=== PATIENT | female | born 1980 | race Caucasian/White ===

== ENCOUNTER 2023-05-23 07:35 | Outpatient (OUT) | payer BC, SELFPAY ==
[2023-05-23 07:52] LABS: Basophils Percent Auto 0.6 % (0.2-2.0); Eosinophils Absolute Auto 0.3 10^3/uL (0.0-0.7); Eosinophils Percent Auto 3.7 % (0.9-7.0); Hematocrit 39.6 % (36.0-48.0); Hemoglobin 12.9 g/dL (12.0-16.0); Immature Granulocytes Abs Auto 0.02 10^3/uL (0.00-0.03); Immature Granulocytes Pct Auto 0.3 % (0.0-0.5); Lymphocytes Percent Auto 29.7 % (20.5-60.0); Mean Corpuscular HGB Conc 32.6 g/dL (29.9-35.2); Mean Corpuscular Hemoglobin 26.5 pg (26.7-34.0); Mean Corpuscular Volume 81.5 fL (81.0-99.0); Mean Platelet Volume 9.2 fL (9.5-13.5); Monocytes Absolute Auto 0.4 10^3/uL (0.3-0.8); Monocytes Percent Auto 6.3 % (1.7-12.0); Neutrophils Absolute Auto 4.1 10^3/uL (1.4-6.5); Neutrophils Percent Auto 59.4 % (43.0-75.0); Platelet Count 208 10^3/uL (150-450); Red Blood Count 4.86 10^6/uL (4.20-5.40); Red Cell Distribution Width 13.2 % (11.0-15.0); White Blood Count 6.8 10^3/uL (4.0-11.0)
[2023-05-23 08:34] LABS: Alanine Aminotransferase 21 U/L (14-59); Albumin Globulin Ratio 0.9; Albumin Level 3.4 g/dL (3.4-5.0); Alkaline Phosphatase 66 U/L (46-116); Anion Gap 11.3; Aspartate Amino Transferase 17 U/L (15-37); BUN Creatinine Ratio 15.7; Bilirubin Total 0.4 mg/dL (0.2-1.0); Calcium 8.2 mg/dL (8.5-10.1); Carbon Dioxide 27.8 mmol/L (21.0-32.0); Chloride 103 mmol/L (98-107); Chol HDL Ratio 2.8; Cholesterol 192 mg/dL (<=200); Estimated GFR (African America >60 (>=60); Estimated GFR (Non-African Ame >60 (>=60); Globulin 3.6 g/dL; Glucose 112 mg/dL (74-106); HDL Cholesterol 68 mg/dL (40-60); Potassium 4.1 mmol/L (3.5-5.1); Sodium 138 mmol/L (136-145); Thyroid Stimulating Hormone 0.867 uIU/mL (0.358-3.740); Triglycerides 95 mg/dL (<=150)
[2023-05-23 08:43] LABS: Estimated Average Glucose 105 mg/dL; Glycohemoglobin A1C 5.3 % (4.5-6.2)
== END 2023-05-23 07:36 | disposition home or self-care (01) ==
PROVIDERS: PCP Family Medicine; Visit Provider Family Medicine
DX: Z00.00 Encounter for general adult medical examination without abnormal findings (principal)
CPT/HCPCS: 36415; 80053; 80061; 83036; 84443; 85025

== ENCOUNTER 2023-07-08 07:26 | Outpatient (OUT) | payer BC, SELFPAY ==
--- NOTE | 2023-07-08 07:50 | MM_ITS ---
Patient: JEIMY BOWLES Exam Date: 07/08/2023 : 1980 Gender:F Ordering : DR Jerod Paiz . Admission #: [id number] Family : Order #: [id number] CLICK HERE TO VIEW EXAM RADIOLOGY REPORT PROCEDURE: MM TOMOSYNTHESIS SCREENING BI COMPARISON: MG MAMM SCREEN LAUREANO W CAD, 06/21/2017. MG MAMM LT DIAG FU, 09/22/2017. INDICATIONS: Screening Calculator Name NCI Breast Cancer Risk Assessment Tool 5 Year Breast Cancer Risk 1.00% Lifetime Breast Cancer Risk 13.20% Personal Breast Cancer No Personal Ovarian Cancer No Treatments None Family Cancers Grandmother-paternal with colon cancer at age ~40; Grandfather-maternal with lung/brain cancer at age 75. LOCATION: [facility] BREAST COMPOSITION: Scattered areas fibroglandular density. FINDINGS: DIAGNOSTIC CATEGORY 1--NEGATIVE. NO CHANGE FROM COMPARISON ASSESSMENT. RIGHT BREAST: No significant suspicious finding. LEFT BREAST: No significant suspicious finding. RECOMMENDATIONS: ROUTINE MAMMOGRAM AND CLINICAL EVALUATION IN 12 MONTHS. PLEASE NOTE: A NORMAL MAMMOGRAM DOES NOT EXCLUDE THE POSSIBILITY OF BREAST CANCER. A CLINICALLY SUSPICIOUS PALPABLE LUMP SHOULD BE BIOPSIED. Dictated by: Duncan Brizuela MD on 07/08/2023 at 08:32 Approved by: Duncan Brizuela MD on 07/08/2023 at 08:33
== END 2023-07-08 07:27 | disposition home or self-care (01) ==
LOC: MAMMO 07:26
PROVIDERS: PCP Family Medicine; Visit Provider Family Medicine
DX: Z12.31 Encounter for screening mammogram for malignant neoplasm of breast (principal); Z80.0 Family history of malignant neoplasm of digestive organs; Z80.41 Family history of malignant neoplasm of ovary; Z80.1 Family history of malignant neoplasm of trachea, bronchus and lung
CPT/HCPCS: 77063; 77067

== ENCOUNTER 2023-12-14 11:07 | Outpatient (OUT) | payer BC, SELFPAY ==
--- NOTE | 2023-12-14 11:35 | PM.CN ---
Consult Note: HPI Data of Consult Patient: new to practice Requesting Physician: Dayna Bustamante NP Primary Care Provider: Jerod Paiz MD Consult Narrative Reason for consult: re-establish care Narrative: Binta Graves a pleasant 43 year old female presents for evaluation and management of chronic low back pain post left lumbar hemilaminectomy and discectomy in March 2020, please note patient has a 6th lumbar vertebra. Patient has a hx of chronic low back pain that responds well to bilateral L4-5 L5-L6 RFAs, last december of 2022 which provided greater than 50% improvement greater than 6 months. Patient has a hx of chronic left lower extremity numbness tingling and weakness after surgery, these symptoms have been worsening over the last 3 months with increase in left foot pain as well as increasing thigh pain and numbness tingling. Denies loss of bowel or bladder. patient has completed greater than 6 weeks of HEP without benefit. Last MRI imaging post surgery in 05/2020 with severe canal stenosis of L6-S1, last lumbar xray 11/25 consistent with degenerative changes. Pain today 12/10 in low back and left leg, with numbness and weakness, pain increased to moderate to severe with sitting standing walking bending and stairs, mild improvement with leaning forward and rest. In the past experienced side effects from opioids and gabapentin, extreme drowsiness. Mild relief from motrin/ibuprofen without side effects. cc:: CC: Dayna Bustamante NP Review of Systems ROS Status of ROS 10 or more systems reviewed and unremarkable except as noted in history and below Musculoskeletal Reports: [facility] Medical History (Updated 12/14/23 @ 11:59 by Dayna Bustamante NP) Lumbar spondylosis ?M47.816 - Spondylosis without myelopathy or radiculopathy, lumbar region (ICD-10) Exam Constitutional Documenting provider has reviewed patient's vital signs: yes Common normals: no apparent distress, oriented x3, healthy appearing, alert and well nourished General appearance: cooperative HENMT Common normals: normocephalic, hearing grossly normal bilaterally and moist oral mucous membranes Head and scalp: normocephalic Eye Common normals: PERRL Pupil: PERRL Neck & C-Spine Common normals: full ROM General: normal visual inspection Chest Common normals: inspection of chest normal Respiratory Common normals: normal respiratory effort, no retractions and no use of accessory muscles Back & Pelvis Lumbar spine/lower back: ROM limited, pain with ROM and straight leg raise positive left Sacroiliac joints: SI joint(s) abnormal (mild pain with left fabir/fadir/thigh thrust) Other: decreased sensation to left L5/S1 dermatomal pattern strength 4/5 in LLE 5/5 in RLE Extremity Common normals: normal to inspection and full ROM Neuro Common normals: oriented x3, CN's II-XII intact bilaterally, moves all extremities, no focal motor deficits, no sensory deficits noted and deep tendon reflexes 2+ bilaterally Sensorium/orientation: alert Gait (neuro): antalgic Motor exam: no movement abnormalities noted and strength abnormal Psych Common normals: mental status grossly normal, thought process normal, cooperative, affect normal, speech normal and activity/motor behavior normal Speech: normal speech Thought process: normal thought process Assessment and Plan Assessment and Plan (1) Lumbar neuritis: (2) Lumbar radiculopathy: (3) Lumbar stenosis with neurogenic claudication: (4) Lumbar post-laminectomy syndrome: (5) Lumbar spondylosis: (6) HTN (hypertension): Assessment and Plan: Blood pressure is elevated today. No signs or symptoms of RI/CVA including chest pain, SOB, left sided acute neck, arm, or jaw pain (separate from chronic pain complaint), diaphoresis, facial drooping, new acute neuro changes in both upper and lower extremities (other than those mentioned in the note above). Recommend follow up with PCP for further evaluation and treatment.? Plan update lumbar MRI without contrast with 10mg PO Valium prior to procedure, lumbar post lami syndrome, lx neuritis, lx radiculopathy, lx stenosis with NC, L6 Vertebra, chronic pain unresponsive to HEP and medicatiions. Essential to evaluate for injection therapy vs NS referral start zonegran 50mg HS continue to monitor BP, f/u with PCP continue HEP as tolerated f/u after MRI
== END 2023-12-14 11:08 | disposition home or self-care (01) ==
PROVIDERS: PCP Family Medicine; Visit Provider Nurse Practitioner
DX: M47.816 Spondylosis without myelopathy or radiculopathy, lumbar region (principal); M54.16 Radiculopathy, lumbar region; M48.062 Spinal stenosis, lumbar region with neurogenic claudication; M96.1 Postlaminectomy syndrome, not elsewhere classified; I10 Essential (primary) hypertension
CPT/HCPCS: G0463

== ENCOUNTER 2023-12-20 13:32 | Outpatient (OUT) | payer BC, SELFPAY ==
--- NOTE | 2023-12-20 13:36 | MR_ITS ---
[address] [address] Patient Name: JEIMY BOWLES MRN: [facility]:[id number] date: 1980 Sex: F Assigned Patient Location: MRI Current Patient Location: Accession/Order Number: [id number] Exam Date: 12/20/2023 13:46 Report Date: 12/21/2023 07:03 At the request of: ABILIO FINCH Procedure: MR lumbar spine wo con EXAMINATION: MR lumbar spine wo con HISTORY: Lumbar Radiculopathy, Lumbar Neuritis COMPARISON: TECHNIQUE: A variety of imaging planes and parameters were utilized for visualization of suspected pathology. FINDINGS: For the purposes of numbering, sagittal T2 image # 8 extends from the T11 vertebral body superiorly to the S4 level inferiorly. PARASPINAL AREA: Normal with no visible mass. BONES: 7 mm anterolisthesis of S1 in relation to S2. Likely right S1 pars interarticularis fracture. Posterior wedging of the S1 vertebral body approximately 25% CORD/CAUDA EQUINA: Normal caliber, contour, and signal intensity. DISC LEVELS: 12-L1: No significant disc/facet abnormality, spinal stenosis, or foraminal stenosis. L1-L2: No significant disc/facet abnormality, spinal stenosis, or foraminal stenosis. L2-L3: Early degenerative disc disease is present without focal protrusion or neural impingement. L3-L4: Early degenerative disc disease is present without focal protrusion or neural impingement. L4-L5: Early degenerative disc disease is present without focal protrusion or neural impingement. L5-S1: Disc desiccation. Posterior based disc protrusion with annular tear extending up to 3 mm best seen on sagittal image #8. No no central or right foraminal stenosis. Mild narrowing of the left neural foramen best seen on sagittal image 5 S1-S2: 7.4 mm anterolisthesis of S1-S2. Disc desiccation and narrowing with endplate sclerosis. Moderate pseudobulge and facet osteoarthropathy. Moderate central canal stenosis. Mild bilateral foraminal stenosis MR/MR lumbar spine wo con IMPRESSION: 7 mm anterolisthesis of S1 on S2 with suspected right L4 pars fracture and resultant pseudobulge with central and foraminal stenosis detailed above Electronically authenticated by: BRADY HALE Date: 12/21/2023 07:03
--- OUTSIDE RECORDS SUMMARY | 2023-12-20 13:50 | XMS_ITS | CCD ---
Author Organization [facility] Care Team Providers Care Commodities Clerk Name Role Phone GAVINO, ARNEL Admitting Unavailable GAVINO, ARNEL Attending Unavailable SAMMI ARRIETA Referring Unavailable NADERER, JEROD Primary Care Unavailable AR Procedure Practitioner Unavailab le UNKNOWN, PROVIDER Surgeon Unavailable Ovitt, Zayda Admitting Unavailable Ovitt, Zayda Attending Unavailable NADERER JEROD Referring Unavailable NADERER, JEROD Primary Care Unavailable Unavailable Primary Care Provider Unavailmercedes DELEON, DR JEROD Jolley Primary Care Unavailable ANATOLIY ., CALIXTO Attending Unavailable ANATOLIY ., [place] Consulting Unavailable ANATOLIY ., [place]TO Admitting Unavailable Blanco, Sarabjit Attending Unavailable Blanco, Sarabjit Admitting Unavailable NADERER, JEROD A Primary Care Unavailable Blanco, Sarabjit Attending Unavailable Blanco, Sarabjit Admitting Unavailable NADERER, JEROD A Primary Care Unavailable Blanco, Sarabjit Admitting Unavailable Blanco, Sarabjit Attending Unavailable NADERER, JEROD A Primary Care Unavailable Blanco, Sarabjit Admitting Unavailable Blanco, Sarabjit Attending Unavailable NADERER, JEROD A Primary Care Unavailable Blanco, Sarabjit Attending Unavailable Blanco, Sarabjit Admitting Unavailable NADERER, JEROD A Primary Care Unavailable NADERER, JEROD Attending Unavailable Allergies Allergy Classification Reported Allergen(s) Allergy Type Date of Onset Reaction(s) Facility (1 source) No Known Medication Allergies; Translations: [No Known Medication Allergies] Propensity to adverse reactions to drug (disorder) [facility] Repository Problems Problem Classification Problem Date Documented Da te Episodic/Chronic Administrative/social admission (4 sources) Encounter for pre-employment examination; Translations: [ENCOUNTER FOR PRE-EMPLOYMENT EXAM] Onset: 02-25-2023 Episodic Other nutritional; endocrine; and metabolic disorders (1 source) Body mass index 40+ - severely obese; Translations: [Morbid (severe) obesity due to excess calories] Chronic Results Test Name Value Interpretation Reference Range Facility Coding Summaryon 03-03-2023 Coding Summary HTMLBase 64 WentarbnCHb2iQr+PGhlY WQ+JM1DMAYpV23swODwmT 5nD3YGVXvPHwogFJBTWTm LIlJbjbAiAO0caFMfATNx IC8+PK3jHEMnYxcoiOXnt 9Y9dYA2Q82dyx3dIAltxN H3NJYcDePbycbpi4yulJn 6IDcuNmluOyBt WYGroP66XMR5zU42Cs60t ZHwyOLvd8byiSd3HvDpVQ CiTQT6tCgqFPnrj1JwZNW mN03sgFDsq0C1 ASJsfFpgmDNkWyDlwXC3b Z6wNDoxlfrnd6fbwpyqQa n1jg69eBYva6G4nDH9U6I slhC5WIZuzJGr FrlarZXMyZ5jnlbzc1lon kxwJlZiNIQxCRt0HXh3XY DkhFteBpKlOV77EMF6HSB dmgMcQ9CoUYCp qNajWnH6f5V8Pk0OQ5TMW smoR4KXXHFRFRbhmWP+PC 03jz30H1HeCibtBtu0TTN rIWD1dZP1eT5f TYZiYUzpb4S2nFF8A6Ttx oGazm2bn3ixNRSpFCncW5 2vpSMue4C3OPMemTR8ETU peRuhHaAcrZ26 Oyc+MKTdoGxxw8XbOcegl 9sqm4tgpHk0SnegSFRcch MxuAlgBKY8q7OrQd4aFZB yrZZ9jOG1aO6s NqMbUiF6DVrsY885LvQnd OJuSftfD37jS9CwvOU+PH StZrp8XZOlkQhvJN6qQ6U hZGRpbmctbGVm sNwqZE4lOUAmejmrALSwq I1dMQQeE5l5TeGpHyO3WY yfE0DhLEVzwveuGf70tW2 fZfRjUhJ0ZDeq Q3BvwoL1HRVkbBLcQQhtZ NN3D04bm4D7RSVlFVZtGC A7uQX0qX4irLfcnhvxzBY mdDsgdmVydGlj CNjrEYxoZ944KFZelWxdU kNvZGluZyBEYXRlOiAgMD YvMDEvMjAyMzwvdGQ+PHR xYVU7mLkxUUOq dFRxHXzlZy0dgAbozWgcG C8gJLMvdjabSIOodH1uLP OaiKGhaEqxJN7wGKWcete df946LkGoKZE9 YCEobDVnY9KhxD2gVmRvZ OScAFOuS4FczEDlOBhiV5 72IPiyHpI0NRPlvbMvX3D sLWFsaWduOiB0 d4D9Ei7Qm0CvozotC8Kpi DFeZlZvWlxuXLi8H3ZbIf wvdHI+NQ72BWAjMS69KFh 1NMY6qCrtSAph ACGmQ6RzzS0rNdTmNEEhJ GRkOyc+PHRhYmxlIHdpZH RoPScxMDAlJyBzdHlsZT0 jKc9fKVNuSBEe mAzcsNEpUyHey9icKWYqX YoeGD5tjWtvW3NuvAS4PY Iaa9p9Pp07J71tW1OdhEI +HONjjPU0wYW7 xM2gUpQxFsW9IAjxU919Q eCwfSFiEnhct8sco3kfxT z0OiT3EPMvyfWsdHsxRSQ 6c5TpLk02D69o IHdpZHRoPSIxNSUiIHZhb Wstdh3rnX3fWr7+PGNvbC E8wWC4vE9mDlCyZuM1CWn yM228HfSckABx Qlgnf7tob4wmhVd1UhVtW ZGglzCpsJnmSIJ0c9TwUg 44B1LbfPbvc5XqSwy2in8 7tFDnu5F4lCE8 G8SsJPFukvjykTZgfIbiO R2pCXDycaumVAMuiE7lVV QqV9t5SaLoOlI6NSckJ4B uxkF1ZRQclSKo IIGebLRVjU4wqlndj6rcx mygEsHdXNErMCw4VOi0JQ ZexYakGmMcOIB9IzN9GGR 2bYGffM6doLlh yakgaV9vLlx+MFT4mVExf ZCZGO1cBacxkKV+PHRkIH Q5rYgtZHvdLXGhqM8mJHG gG7l2GrYuEzK7 YFdeQ1GzjwO9OLJurSSaZ HAfdEIEbD0vavqup8sios wcGeEzNRTeNBe4LAb4LOW saWduOiBsZWZ0 XhR4GRO5mLCvwR8eaAwvi witoK9oTgh+QmlydGggRG O4ROp9S4HoUhs5YHOvpYq kIZ9kaFDuFVby Xf1gwOznzXilCZ9sQABuk pyhc219QvZao5ppQMHyrJ ZzQNbcLKS9X35lj7N8CDQ pZJVgNJA1aVW8 nO8eqUcdwpjebDQhkVpqq wSqgYmtXDqdTUprL389ZT FqyZyjHzFxPAw2U4KkAix 7FXAksBzpCY5r fCStAIwkWg4lzDbmzBtjV U4qGGOzdnxkf517GzGyv7 qmFOOgyCFePNizHGU0P38 xb2S6OANzQCTq SJO6gHR3vL6ftRclhowtz GVmdDsgdmVydGljYWwtYW zfV691NFEnnLlyVkTbjBd 2L8QqFhq8LFSs tSbvEN6eeZAkEKyrKa3tp UyyhWpoKZ6nGMHlhfzjd5 16DeVko3oaIEQnmHRcKVe cCNF5A69nm8R5 SGWvASFnAWG5hPN1mK7wq GlnbjogbGVmdDsgdmVydG waYFulAOntO917KVNxyUt nPlBhdGllbnQg MLzpEBt2Q9JqTaynrTP+P K30XNEkXM31qDJnqZMji6 npdXv6SzQrVCYfTEJ2kTj nMYfkh4CsLECw O79cqDGws2X5PVNsqCovy UJdAoFirDW0wU6kAGjomt fwi0zpzazsDtwtp9oiaj3 6zA11A82vGSzu ZHRoPSIzMCUiIHZhbGlnb o1kcU8cKz5+AFNdcSD5hF T6lO9eSIRiFdT3ZKapV57 9InRvcCIvPjxj i1ekc7ndzLw0XfH0ZKFql kWvgHarNKI6o9DcVd31T8 9sIHdpZHRoPSIyMCUiIHZ hkHxzbx4jdG7k Ii8+PDKjpSB1cNU4cS4pC bDfBrS4AYvkY207SvBgtG QsFyuxD22oE7SevRF+PHR hVyt4IIKrfSgz CL6jhSZfYGxvAb0xOAZ7N wSqJoHuSLvtX6VzWLZjkc kjyqtigJF3OSZrZUBxsQ0 9Bj7caNtfEAQj iVOAuQ0piljfj9opuutaH xTeZROdTJz0FVj9QTGwxO scUzYmHON7NlM9FXB1gSM iuT6qpGslypla bM6rM3ZcDITzwdvsQy76o C6iWrIjOwT4HIglTao+TU FSVElOLCBFTElaQUJFVEg aGE0ZTT25TC40 eFHzd0F8qAX0W5YqOTVht ntghioprBD9BPDuLMBdlE 21aSXtGUxxGe5qg8T7x72 9JGBqFDLodL46 Mb8daWdkFICljOJYhV1ts zbco0pmloilPjTiIBKpYZ b7BXf4CZCxlNynZsYfCEW 1JqZ3YVP0kUJs xJ2okVrfddgewH5oUhd+M EvnLQClDOz2TFlaqED+PH WnGRQ4hHjvMFeeRUIktY3 vXZMlL7m7DaGl CdA6IAokH3FnRSJrxjroW g58mR4uOlMwYzZ9TRkqZ8 LxqzS7HYXbaZWnKZrnUFP 8Y37zz5O6PUGv FUBmFZP2pFZ3iW9oiQuvm jogbGVmdDsgdmVydGljYW ddSQspG784MRQudSumLzI cISnvFTUrDA96 XN93zDZvo6K1lOA5C6PeZ CVejldmkdzkvXT9CIEfOW AuiN03zWRuSDboVb8ep0T 2h667SOAeNQEd fK97Il9fkJlfDDBafYWYf Q9cibvpx1kgfzcnKaBtZQ UpQDb1ZEi2LDJigQfyLqJ xXDN0LkZ3BGE4 xPSigA5eoBnvegumfI2rK yc+JpERORgPVT97TY42jJ Gmu7P8aNT3U4MuURJqhxk ifwcrxWO4FPXp RCJanC35iPEaCZstNk0qc 6X9b693OGIsJSEcvX03Th 9ocZljJDOuaTPOtT7vbvx iw8gzyooqVmLh HUObKZo1CWo2KGJdsJqlX sTbYTG9HeH7YET4kVUofK 2jtEvqnllttP5cEcb+T1A 1E0QxNmimpTL+ AA38LUDzGF24sNHpxRXrn 0hgdKk6PaYsCJPoEJK7cE ihLPjfg8CkKIYjG20bwKA wm9E6RTJqtBmj pTVeUsWjzGK1jG8hBNkvp uffx2sttoyqEwehu7skba 91cK85G97lJBwcKGKhUAM zMCUiIHZhbGln uf3wxY8iRv7+WMMdfHL1e RU8tL2oWnLeMbE0TVgjG4 50HaXfqPGkSindt6vsb6o brKb6LlVmKSEe gsSarQvhMPF8p4PdUa92K 29sIHdpZHRoPSIyMCUiIH PsfBrtij4fgN1oUo1+PC9 le6adxf12rO18 dHI+SYRuTNH3nFyqONscH QSbqI6wFKvxBvO8XZFrDb BlvJ36cTLkZAmqKp7zgRs gjGcmMU7gPWEz umeyi426CbTvs5zrIBVnn HEzJBjuMWK5Q37qg7N2IO VcUUMsPUY3lGQ5kS5snBs nbjogbGVmdDsg lgFucYflVWfcAAveO029K RAmwNiaGuFvhDYnD4tctx LXUX9rCzqziAC+PHRkIHN 0eWxlPSdwYWRk wX9eINThB6g3JuQgPpJ2T JrqF3TmtbS6NJJaxQUkUY XcxTKEeZ3zsbdzg7fvokm gIzAwMDAwMDt0 ZNb8VZAkeYovOgAsOEE2E xU4JXJ8uJAsdZ3ffNrovx xgeA3bLjj+RklOOjwvdGQ +KATcVGR8qPnm YRyhMKUqmH1xUZGfP7x0D zApEmE4IRjgE5GboeF7NZ DwvOQkFWForJUJpP6hiqu wn3zsnphhVsKm FBEgAJv7GUx6DHXexYjxM cUwAJF2OdV6YZU2qAYxiP 5zoBhudtiuqU4jOqi+TVJ OOjwvdGQ+PHRk WLY6aZaySZpgNFTnnE2eJ YDtN9j0ViAeBcO5ZHgpI8 WvoqD6YXFxhEDmZAStsUT KoI8fywkbl5rr mkpoJdFbIPIaYXc0CHl3C OHoqPikPzLkZCS4XpN6XO O5hRCppT7uiUtzxwffdR2 wOyc+ASC4DTH4 PA26NR92I3GbQqzdaYTov +PHRhYmxlIHdpZHRoPS cfQEMaPsFjjJsqHY2zXq9 yZGVyLWNvbGxh cHN (more content not included)... Normal [facility] QUANTIFERON TB GOLD PLUSon 0 02-27-2023 QuantiFERON Incubation Incubation performed. Normal [facility] Comment on above: Performed By: #### Q NTTB #### [facility] [address] [place] [address] Dr. Shon Barger QuantiFERON-TB Gold Plus Negative Normal Negative [facility] Comment on above: Result Comment: No r esponse to M tuberculosis antigens detected. Infection with M tuberculosis is unlikely, but high risk individuals should be considered for additional testing (ATS/IDSA/CDC Clinical Practice Guidelines, 2017). The reference range is an Antigen minus Nil result of <0.35 IU/mL. Chemiluminescence immunoassay methodology Performed By: #### Q NTTB #### [facility] [address] [place] [address] Dr. Shon Barger HEPATITIS B SURFACE ANTIBODY , QUANTon 02-26-2023 Hepatitis B Surf AB Quant 14.2 mIU/mL Normal Immunity>9.9 [facility] Comment on above: Result Comment: Stat us of Immunity Anti-HBs Level Inconsistent with Immunity 0.0 - 9.9 Consistent with Immunity >9.9 Performed By: #### H EPBSRF #### [facility] [address] [place] [address] Dr. Shon Barger MMR IMMUNITYon 02-26-2023 Mumps Abs, IgG 156.0 AU/mL Normal Immune >10.9 [facility] Comment on above: Result Comment: Nega tive <9.0 Equivocal 9.0 - 10.9 Positive >10.9 A positive result generally indicates past exposure to Mumps virus or previous vaccination. Performed By: #### M MRIMMU #### [facility] [address] [place] [address] Dr. Shon Barger Rubella Antibodies, IgG 1.73 index Normal Immune >0.99 [facility] Comment on above: Result Comment: Non- immune <0.90 Equivocal 0.90 - 0.99 Immune >0.99 Performed By: #### M MRIMMU #### [facility] [address] [place] [address] Dr. Shon Barger Rubeola Ab, IgG 116.0 AU/mL Normal Immune >16.4 [facility] Comment on above: Result Comment: Nega tive <13.5 Equivocal 13.5 - 16.4 Positive >16.4 Presence of antibodies to Rubeola is presumptive evidence of immunity except when acute infection is suspected. Performed By: #### M MRIMMU #### [facility] [address] [place] [address] Dr. Shon Barger VARICELLA IGG ABon 3 Varicella Zoster IgG 1057 index Normal Immune >165 [facility] Comment on above: Result Comment: Nega tive <135 Equivocal 135 - 165 Positive >165 A positive result generally indicates exposure to the pathogen or administration of specific immunoglobulins, but it is not indication of active infection or stage of disease. Performed By: #### V ARCEL #### [facility] [address] [place] [address] Dr. Shon Barger MAGR Intraoperative Recordon 01-03-2023 MAGR Intraoperative Record MAGR Intra-Op Record Summary Primary Physician: Sarabjit Blanco MD Finalized Date/Time: 01/03/23 13:44:55 Pt. Name: BINTA GRAVES/Sex: 1980 FEMALE Med Rec #: [id number] Physician: Sarabjit Blanco MD Financial #: [id number] Pt. Type: D Room/Bed: / Admit/Disch: 12/29/22 07:38:41 - 12/29/22 09:20:00 Institution: Case Times MAGR Entry 1 Patient In Room Time 12/29/22 08:38:00 Out Room Time 12/29/22 09:05:00 Anesthesia Start Time 12/29/22 08:38:00 Stop Time 12/29/22 09:06:00 Surgery Start Time 12/29/22 08:41:00 Stop Time 12/29/22 09:02:00 Last Modified By: Tiffany Tyson RN 12/31/22 09:50:24 Case Attendance MAGR Entry 1 Entry 2 Entry 3 Case Attendee Sarabjit Blanco MD RN, Gail Cox MA Role Performed Surgeon - Primary Lease Operator Lease Operator Time In 12/29/22 08:38:00 12/29/22 08:38:00 12/29/22 08:38:00 Time Out 12/29/22 09:05:00 12/29/22 09:05:00 12/29/22 09:05:00 Procedure Radiofrequency Radiofrequency Radiofrequency Ablation(Bilateral) Ablation(Bilateral) Ablation(Bilateral) Last Modified By: Tiffany Tyson RN, Rebecca L RN Votino, Rebecca L RN 12/31/22 09:51:06 12/31/22 09:51:06 12/31/22 09:51:06 Entry 4 Entry 5 Entry 6 Case Attendee Eveline Chen RN, Regina CSFA CST Mitchel, Bradley MD Role Performed Lease Operator Scrub Personnel Anesthesiologist of Record Time In 12/29/22 08:38:00 12/29/22 08:38:00 12/29/22 08:38:00 Time Out 12/29/22 09:05:00 12/29/22 09:05:00 12/29/22 09:05:00 Procedure Radiofrequency Radiofrequency Radiofrequency Ablation(Bilateral) Ablation(Bilateral) Ablation(Bilateral) Last Modified By: Tiffany Tyson RN, Rebecca L RN Votino, Rebecca L RN 12/31/22 09:51:06 12/31/22 09:51:06 12/31/22 09:51:06 Entry 7 Case Attendee Froy Ramos RT (R) ARRT Role Performed Bell Cleaner Time In 12/29/22 08:38:00 Time Out 12/29/22 09:05:00 Procedure Radiofrequency Ablation(Bilateral) Last Modified By: Tiffany Tyson RN 12/31/22 09:51:06 Surgical Procedures MAGR Pre-Care Text: A.20 Verifies operative procedure, surgical site, and laterality Im.150 Develops individualized plan of care Entry 1 Procedure Radiofrequency Ablation Primary Procedure Yes Primary Surgeon Sarabjit Blanco MD Modifiers Bilateral Surgeon Comment BILATERAL LUMBAR Start 12/29/22 08:41:00 RADIOFREQUENCY ABLATION L3 L4 L5 L6 Stop 12/29/22 09:02:00 Anesthesia Type MAC Surgical Service Pain Management Wound Class Clean Technique Details Closure Technique N/A Entire procedure No was performed via laparoscope or robotic assistance Last Modified By: Jacqueline Matos RN 12/29/22 09:03:03 Post-Care Text: O.730 The patient's care is consistent with the individualized perioperative plan of care General Case Data MAGR Pre-Care Text: A.350.1 Classifies surgical wound Entry 1 Case Information OR MAGR OR 02 Case Level None Wound Class Clean Specialty Pain Management ASA Class 2 Diagnosis Preop Diagnosis LOW BACK PAIN Postop Same As Preop Yes Postop Diagnosis LOW BACK PAIN Blunt or No Is the procedure No penetrating injury considered occured prior to Emergent/Urgent? the start of the procedure: Last Modified By: Jacqueline Matos RN 12/29/22 09:03:04 Post-Care Text: O.760 Patient receives consistent and comparable care regardless of the setting Time Out MAGR Entry 1 Time out date/time 12/29/22 08:39:00 All team members Yes have introduced themselves by name and role Surgeon, Yes Surgeon reviews Yes anesthesia, nurse critical or confirm patient, unexpected steps, site, procedure operative duration, anticipated blood loss Anesthesia team Yes Nursing team Yes reviews any reviews sterility patient-specific (including concerns indicator results) and equipment issues/concerns Antibiotic Last Modified By: Jacqueline Matos RN 12/29/22 08:41:54 Patient Positioning MAGR Pre-Care Text: A.280 Identifies baseline musculoskeletal status Im.40 Positions the patient Im.80 Applies safety devices Entry 1 Procedure Radiofrequency Body Position Prone Ablation(Bilateral) Left Arm Position Resting at Side Right Arm Position Resting at Side Left Leg Position Extended Right Leg Position Extended Feet Uncrossed? Yes Press Points Checked Yes Positioning Device Pillow, Safety Strap Outcome Met (O.80) Yes Last Modified By: Jacqueline Matos RN 12/29/22 08:43:26 Post-Care Text: E.290 Evaluates musculoskeletal status O.80 Patient is free from signs and symptoms of injury related to positioning Skin Prep MAGR Pre-Care Text: A.30 Verifies allergies Im.270 Performs skin preparation Im.270.1 Implements protective measures to prevent skin and tissue injury due to chemical sources Entry 1 Skin Prep Syntegrity Prep Agents (Im.270) Povidone-Iodine Prep By Vida Figueroa CASHIER GREETER Prep Area (Im.270) Back lower Prep Area Details Bilateral (more content not included)... [facility] Coding Summaryon 12-30-2022 Coding Summary HTMLBase 64 VnrwtekwTEr4cDi+PGhlY WQ+PS5FDDYrM53jvVNwsU 4JW9kFNK0BAOHNIKWAIC3 NLI3mrTF5WCwjP6RyitLe XvnzzSQyLW25SAr4JZF3c PraENyqyS1bpTImL3h4Rf XkEQ73mM77CHazBIXjOiL 3LjZpbjsgbWFy S9ofOwRptVFfNhg+PHRhY mxlIHdpZHRoPScxMDAlJy CgsFfqZT5aRy4cINYyOYJ vbGxhcHNlOiBj x9zxZCTnJQgcOM6vvFywW 8RqjQJ1KGHqc1u1Fq73uX I+DMAkXTU5iOaxVIdpf59 2ZmEzu1bxJRA6 tAKfVWgvMTZ9G82ti9D6Z QMiBOEyRML9lEW6uG5ijP wvceykE6AjrTZlAxD6JCL 0aWPfrZ5wnQzz xqncaT5vEfw+K18ZNG2LT QQNWR0NWlr6A6BvWwpyvE I+AY63LXAdSK65eTOezNI ty3ipoKt0EiBd PGMvJYY4iVdlKVjgg0GlI XRlI07xxQQuq8S6COJqvM mbvKHsRzCsmPQ4mF2pTEc lqjblk1fzlsrg Qopww8fvjx43hT96K11vL FwzVSNgOLR8RTQlRMObgW ewrn3wmZ2yJq2+FKjjk5f me1kagTy6QtLl SSIgukOtfIpoNCV8k3TkK b42D3NeqInyw7ZvWbn1yj 08kDFjm7J8pQN1VXvlAPE klQ4fLOnhXlN0 HPCwNjKtbP47cUKxWYmvK d9iaWzmiCxyCC0uSOMbmk dsFUCbtM5gOUMamGCtkIk rMH2gQKSdbseg z785CxOyUGI9CUWkiSWeQ 4HgnR2tWyVrPIWeAYBrY2 TvkUBkHCrpX051UFotNnL 5LWPrbuSyL6Ar JURszAxvAiY1g2Q5Vf4Mv 9JbtfbaISU8PYmrEKLzLx KoTsGqDzI7I5ZrQfb9NTB eiWdaXT1aV5Mw NQDvqhpagtvvbLL2TMCsX COlgA43mSUnHYbaLb3ua4 T7q465KJMsDACfwM04Rb9 udDogMTBwdCBU fX2jsfgjc1wcehufWsNtE VBhMZt9GQt1TYLupDmcGl NqAOB8BbU3JHU2pABniX2 soVmcsoucxR3b Oyc+W50mjP1vDIH6BDX2c faxLNVzqcWuJT76YM96U7 RyPjwvdGFibGU+PGRpdiB btKhbSI9tQlCh b6dir8LdOJrmY8XwQISjZ SgqNqh1WCJxTDV9eVJ1qN 5cCFCxQZzts3G7kTF6X1Z pexZyey5ye2wq RPZdRSljL30twKSte1H7T YLnkTN8JDGsmJyrTaVpxR 93Oyc+XZUymZmtb6IuDyp vy3frd5anlWx5 NlWyYPQmeuKjhDdlPWG2d 5TgUr41K82uUHfmCBThCH IbFICxKKScmVxgdh9plG2 wIi8+PGNvbCB3 kDQ2cZ2tEOVxIsZ0YYziU 396WeNglBIsNesax7mhc5 elgOn3PeSmQIYyuxFpkSg sENL5d6VkWm17 P22yKNjtQPUrXUSsOADfZ KEtuIrild7jkL8hDb1+PC 0py7urbh95yX55vUD+PHR jIXC6tFikPFcs RFXirU8tFBkbPtW4TTOcL nZoqM19iIOcCGwgUr7hiD gsvYbuXT1nKDCpeuxav20 0XgGlq9fxPJLt gESiBLvoMDQ0F00vm7S8M YMkHEXlEJY4uKW8kT5hzI lnbjogbGVmdDsgdmVydGl cTBndHSswV016 IHRvcDsnPlBhdGllbnQgT fHoTBt4B7BmJnz7KTLtqD vxLL2fuOFvALbnPd5nxEk glXdtCA5pTQTq lqdpz004ZfGfs8ufYHAcx YFoIXtfIKZ2R72oh9X5XZ FbVVBmONB5rCK6vZ9qsRh nbjogbGVmdDsg rfNfuTbbPNplZMahM505S HRvcDsnPkJpcnRoIERhdG K1LO23BP94aDKhr8R2zZB 6T7KuMBUgiztv uhonzWL9SENkDXIhcO84U x8wuStiLe2wGBDoIWF9EW HfnGOpZ8BmtR2wShVoZYR aHSGwQ8GejWGc RIaaK390NIcxBfT6KLFjg oDwT3AuNRUkrHawDaB3a6 A7Mg1WF7C3JP47WT04cTH sv1R0jSO9M0Ni XUYxbvaufgqywBK0ESDuO XXhbM79Td1vrNbvGs0eDT GmKOS5KBXbqGMpQ7BqkL3 yOiAjMDAwMDAw G4TxuJOaGJsuG644KJflX xY7LPDvoyQcL4SrMQWhmK qmYyM2r1U6Yf5UNNz9BV9 7RQ24fRLse6M6 kJW0B4EzFQOnnhrvhloyp TU0GASkFCMsaL30Uk0uqP amGp5yLIJmOAE2VGUslRN bP7MgwX5aQkQp SJPpXBHtP9OloATbYVfnL 005FJdrSaY6SXCzjzJwO2 SfCLVgaEqqCmE3v2I2Rc8 FSODyUT14MJC0 oVJ1WG39FH09D7AtHchqa GFibGU+PHRhYmxlIHdpZH RoPScxMDAlJyBzdHlsZT0 bOn1dBCWnGKYp gZbznJKlFtEin2emWWNoI GmaQY5ofUsjJ9OsbBY0EZ Iil5k4Ol19S79kI1WssWW +PACpbNO7bFK7 rB8hDuEaIbS6NTlcR517Z gOaeHCkCxuno9lsv1gwcW v0AyR5ZLKptnMaiDeoPCA 8q6PjOn61E24p IHdpZHRoPSIxNSUiIHZhb Jofaw7vzY9rHv0+PGNvbC B4eNW2gT1kMmVnQzI3IFq lJ806RdEyxQCd Naldg4ojz6bufMw7JxUzA TIjvuNogLtvYYH1z2QrTl 19G9XbpLisl8OnIvq7cq8 4iIPmk9X1qED2 M8BtYMHawbccgVKqgDpmG Y1rTLGvvbytTCWzpT5iVC MtX7c8AtTdCpF6AQooH3P luuD0XATceXZq TCjeZHU0Z88wc1P7VPRtB UHbOIH5gPS0lJ1jqWaoax ogbGVmdDsgdmVydGljYWw tCOglA060NEEh zDytRPQkrA8kMZFpfIUpc VfiIU8xWOAwtlcvVz6AZg RJTiwgRUxJWkFCRVRIIEF OTjwvdGQ+PHRk JLA0jLuiNSkmTSEshZ0eO NLlO1x6FyNmNqP1XTddK4 WlYMAqoslaQu60yY0xSmU qVbL8FMtlL0Ie ikS5MUItpVSpHJhuINI0F 56dd5X6PPWmVYUoRIL1xJ S0oH5vwObrgszwxQLraPg gdmVydGljYWwt TPrgV243LIQsiRhqPvW9L gFbOaC3UGY5K8KmDeu2BG MmdTfmHU6ezYDnMSklTd9 anDourEhuKB2t UJDhhqhjEQZmbJ0tKGYus ODsqOucVZ2mKABwclixa4 08SpCoZGR1YHIunOTpD9Q wlS5iQbHiYDSb ZJVvM3BtmTVwEHafN023H NcwGvD1IUYtnxSgI9MuBB FegYjgWaG3e3N6Wv22ZxI ZZWFyczwvdGQ+ ONEmAKK9fFtjKIgqNAFfk I5qNITwU1m9ZrWmFbJ4PI fdP9DwCJSemywiVs92wM5 kFgPnHsB2JKmr Z9RndhN2JNQxoTYeOVodT VZ8P49jf9T1JONsDQXgXM H3xQT4iH4wfTbalonaqFI mdDsgdmVydGlj XUnfSXvsW932OKKbpYfpE kZFTUFMRTwvdGQ+PHRkIH W4vAwwWJkiCYVpoQ6fUVG uI2z3XsKkAgC2 UZbxV4DaQMXfuwsuEs82h I9lHfXbTlU2QIqqJ4Rprt F7VMAznAAvFXlsUVJ8G06 py1P8VRXtKJQj MAY8lPX4jZ4xkCkvxfwzy GVmdDsgdmVydGljYWwtYW vmO786ILPxcJdtPiWofQJ CfQKtJEL9HN17 YI45V5GeMuylrKZkaQV+P HRhYmxlIHdpZHRoPScxMD ZuUoJxpGyyTY0tTu2wYHY yLWNvbGxhcHNl OjGwu4zjWCOkVUleFP8ox YcrC3CnrSI7EXTcy7g6Lg 30M53uM8LxwJL+PGNvbCB 3yFI9tC6fRqXi QqE7HJdaZ312IeDyiGWnM izhj2cvx8pbrSh1RsAkQD WjxdSgySghDRU8m8SsQa9 4E81yQGijQLMi CXVuKMXlRTQiuKktps2di G9wIi8+QXPjdOO8eGC0vX 0gCcWgEzE5POiaC353GiD cmKHcCamyF83b N3PwdMG+SOGhIrz6VQHmt QsrRM7ybPHlLSylRx3vVB H6AuLjJwHsKQxkY5WhTWQ pbmctcmlnaHQ6 YDZlHARcbR05Fl4ixQlyZ w0lWSHzRZI1EBZcsFBvF9 NhzB4fUrJoPFHcAOPcY5V rxDEbGUbgH519 MVpgUaB8XGWddgUoY9HxV TThzLqjNpP2r3R0Ce0HhL dhgBOtYS9yPpBqLZi0J4D tJjv8OZDxaFkd XQ2tuWEiXZzuQx2nyXcvz YpgUQ9aBHTnmgfaq428Rc Awx5hrVNDngEBwOOhgCMM 1K31pa9X3RSVw GZVhHQQ8dXG0tK9krGbbo jogbGVmdDsgdmVydGljYW jxRWfwW003IKVisZirJrG OVcy4P0BvRrv2 HLUwvDglEM6boEEdNGamP e7rpMlgnLgiMM3fULJemo bbg343PtLqf0xkIMGsiWT kPRzrSQR4B49e z1H7OPDsRIHwYDD3sTX0i R4hoOnwrbuoxRYzfAtedy KeyZfdVUlgRJizM333PGQ zpYjsVo8RTaz7 P8YyDqa2HHBgiBgbJQ9ik WGqHFrnIn4rcUbjhRceFZ 4wNAQkthasx024FmVtu0z kIDEwcHQgVGlt EDS6O53zp4R2SXGgXYEeU AV2pAU8iG6ytPaxueqgmV VmdDsgdmVydGljYWwtYWx wK471BLAraJzu PlBheWVyOjwvdGQ+PC90c u98F8UuDfelUhm3OMOaCV R0xII9sX2cMQKgCFsuy4R 2cIE0E7PgsjNk ci1 (more content not included)... [facility] Consent Formson 12-30-2022 Consent Forms [id number] [facility] Anesthesia Noteon 12-29-2022 Anesthesia Note Patient: BINTA GRAVES Age: 42 years Sex: FEMALE : 1980 Associated Diagnoses: None Author: Jalen Hagan MD Postoperative Information Post Operative Note: Post Anesthesia Care Unit. Anesthetic utilized: Monitored anesthesia care. Health Status Allergies: Allergic Reactions (All) No Known Medication Allergies Physical Examination VS/Measurements Vital Signs (last 24 hrs) Last Charted Heart Rate Monitored 98 bpm (DEC 29 09:16) Resp Rate 16 br/min (DEC 29 09:16) SBP 135 mmHg (DEC 29 09:16) DBP H 94 mmHg (DEC 29 09:16) Weight 117.10 kg (DEC 29 07:50) Height 172.72 cm (DEC 29 07:50) Pain assessment: Self-reports no pain. General: Alert and oriented, No acute distress. Respiratory: Respirations are non-labored. Cardiovascular: Normal rate, Regular rhythm. Review / Management Condition: Stable. Assessment Anesthetic outcome No anesthetic complications noted. Adequate pain relief. No Complaint of nausea and vomiting. Plan Transfer/ Discharge: Patient can be discharged from anesthesia care. [Electronically Signed on: 12/29/2022 09:33 EDT] Jalen Hagan MD [Verified on: 12/29/2022 09:33 EDT] Jalen Hagan MD [facility] Anesthesia Note Patient: BINTA GRAVES Age: 42 years Sex: FEMALE : 1980 Associated Diagnoses: None Author: Jalen Hagan MD Preoperative Information Anesthesia history: Patient history: Nausea and vomiting with anesthesia, No problems with local anesthetics. Review of Systems Constitutional: Negative. Respiratory: No shortness of breath. Cardiovascular: No chest pain. Health Status Allergies: Allergic Reactions (All) No Known Medication Allergies Current medications: Home Medications (5) Active ibuprofen 800 mg oral tablet 800 mg = 1 tab(s), PRN, PO, q8hr losartan 50 mg oral tablet 50 mg = 1 tab(s), PO, Daily metFORMIN 500 mg oral tablet, extended release 500 mg = 1 tab(s), PO, BID multivitamin with minerals 1 tab(s), PO, Daily Ozempic (1 mg dose) 4 mg/3 mL subcutaneous solution 3 ml(s), SubQ, qFriday Problem list (past medical history): All Problems Lumbar spondylosis / SNOMED CT 412388084 / Confirmed Anterolisthesis of lumbosacral spine / SNOMED CT [id number] / Confirmed Histories Family History: No family history items have been selected or recorded. Procedure history: Facet joint nerve block ([id number]) on 12/15/2022 at 42 Years. Comments: 12/15/2022 8:01 EDT - Gail Morgan MA [id number] Social History Electronic Cigarette/Vaping Assessment Electronic Cigarette Use: Never. Tobacco Assessment Never tobacco user Tobacco Use:. . Social & Psychosocial Habits Tobacco 12/15/2022 Smoking tobacco use: Never tobacco user Electronic Cigarette/Vaping 12/15/2022 Electronic Cigarette Use: Never . Physical Examination VS/Measurements Vital Signs (last 24 hrs) Last Charted Heart Rate Peripheral 88 bpm (DEC 29 07:50) Resp Rate 18 br/min (DEC 29:50) SBP H 143 mmHg (DEC 29:50) DBP H 92 mmHg (DEC 29:50) Weight 117.10 kg (DEC 29:50) Height 172.72 cm (DEC 29:50) General: Alert and oriented, No acute distress. Airway: Mallampati classification: I (soft palate, fauces, uvula, pillars visible). Mouth: Within normal limits. Respiratory: Respirations are non-labored. Cardiovascular: Normal rate, Regular rhythm. Neurologic: Alert, Oriented. Review / Management Laboratory Results Plan [place] [employer]#( A) physical status classification: Class II. Anesthetic Preoperative Plan Anesthesia: Monitored anesthesia care. Anesthetic plan, risks, benefits, and alternatives discussed with the patient and/or family. Patient verbalized understanding. Informed consent was given. Consent was signed by the patient. [Electronically Signed on: 12/29/2022 08:45 EDT] Jalen Hagan MD [Verified on: 12/29/2022 08:45 EDT] Jalen Hagan MD [facility] Inpatient Patient Summaryon 12-29-2022 [place] [address] Patient Discharge Instructions Name: BINTA GRAVES : 1980 Patient Address: [address] [place] [address] Primary Care Provider: Name: JEROD DELEON After you are discharged if you find you have any questions, please, call [phone] ext [phone] to speak to a nurse. Discharge Diagnosis: Anterolisthesis of lumbosacral spine; Lumbar spondylosis Prescription Information: If you have been given a prescription for narcotics, seek immediate medical attention if you have any difficulty breathing or any sudden status changes such as confusion and sleepiness. If you or anyone you know is experiencing suicidal thoughts, mental health, alcohol and/or drug addiction problems; contact the [facility] 25/04 Crisis Hotline -Text 4HPGQ to 626685. If you received any narcotics, sedation, or any other medication that causes drowsiness for the next 24 hours, unless otherwise directed: ? Do not drive a car. ? Do not operate machinery such as power tools, lawn mowers, drills, sewing machines, or stoves ? Avoid alcoholic beverages and drugs for allergies, nerves, or sleep ? Do not make important personal or business decisions or sign any legal documents [facility] would like to thank you for allowing us to assist you with your healthcare needs. The following includes patient education materials and information regarding your injury/illness. BINTA GRAVES has been given the following list of follow-up instructions, prescriptions, and patient education materials: Follow-up Instructions Medications During the course of your visit, your medication list was updated with the most current information. The details of those changes are reflected below: Medications to Continue That Have Not Changed Other Medications ibuprofen (ibuprofen 800 mg oral tablet) 1 tab(s) Oral Every 8 hours as needed pain. losartan (losartan 50 mg oral tablet) 1 tab(s) Oral every day. metFORMIN (metFORMIN 500 mg oral tablet, extended release) 1 tab(s) Oral 2 times a day. multivitamin with minerals 1 tab(s) Oral every day. semaglutide (Ozempic (1 mg dose) 4 mg/3 mL subcutaneous solution) 3 ml(s) Subcutaneous Every Tuesday. It is important to always keep an active list of medications available so that you can share with other providers and manage your medications appropriately. As an additional courtesy, we are also providing you with your final active medications list that you can keep with you. ibuprofen (ibuprofen 800 mg oral tablet) 1 tab(s) Oral Every 8 hours as needed pain. losartan (losartan 50 mg oral tablet) 1 tab(s) Oral every day. metFORMIN (metFORMIN 500 mg oral tablet, extended release) 1 tab(s) Oral 2 times a day. multivitamin with minerals 1 tab(s) Oral every day. semaglutide (Ozempic (1 mg dose) 4 mg/3 mL subcutaneous solution) 3 ml(s) Subcutaneous Every Tuesday. Take only the medications listed above. Contact your doctor prior to taking any medications not on this list. Diet & Activity Patient Activity Level: Patient Diet: Patient Activity Restrictions: Comment: Patient education materials, if any, will display below Viruses or Bacteria What?s got you sick? Antibiotics only treat bacterial infections. Viral illnesses cannot be treated with antibiotics. When an antibiotic is not prescribed, ask your healthcare professional for tips on how to relieve symptoms and feel better. Usual Cause Illness Viruses Bacteria Antibiotic Needed Cold/Runny Nose NO Bronchitis/Chest Cold (in otherwise healthy children and adults) NO Whooping Cough Yes Flu NO Strep Throat Yes Sore Throat (except strep) NO Fluid in the middle ear (otitis media with effusion) NO Urinary Tract Infection Yes Antibiotics Aren?t Always the Answer www.cdc.gov/getsmart GET SMART Know When Antibiotics Work U.S. Department of Health and Human Services Centers for Disease Control and Prevention June 2014 [facility]29-[facility] MAGR Preoperative Record MAGR Pre-Op Record Summary Primary Physician: Sarabjit Blanco MD Finalized Date/Time: 12/29/22 09:18:18 Pt. Name: JELENA BINTA KATIANA Duval/Sex: 1980 FEMALE Med Rec #: [id number] Physician: Sarabjit Blanco MD Financial #: [id number] Pt. Type: D Room/Bed: / Admit/Disch: 12/29/22 07:38:41 - Institution: Pre-Op Case Times MAGR Pre-Care Text: Patient will be optimally prepared for surgery. Patient is free from s/s of injury. Provide information to patient/family related to plan of care. Verify patient allergies. Confirm identity and verify consent before the operative or invasive procedure. Entry 1 Patient Arrival Time 12/29/22 07:40:00 Preop Departure 12/29/22 08:25:00 Last Modified By: Namita Roman RN 12/29/22 09:18:14 Post-Care Text: Patient is prepared mentally and physically and is ready for surgery. The patient remains free from s/s of injury. Patient/family express understanding of plan of care and participate in decisions affecting his or her perioperrative plan of care. Allergies documented appropriately. Patient identifiers and consent correct. General Comments: Pt arrived to [facility]. Pt denies any recent cold/flu/covid symptoms, SOB, sleep apnea, disbetes, CP, or pacemaker/defibrillat or. Pt infomred of restrictions for 24 hours due to sedation- pt understood. Finalized By: Namita Roman RN Document Signatures Signed By: Namita Roman RN 12/29/22 09:18 [facility] Operative Report - Surgeon/P reagan 12-29-2022 Operative Report - Surgeon/Physician Patient: BINTA GRAVES Age: 42 years Sex: FEMALE : 1980 Associated Diagnoses: None Author: Sarabjit Blanco MD Lumbar Radiofrequency Ablation- Bilateral Preoperative Diagnosis: Lumbar Spondylosis, Chronic Low Back Pain Postoperative Diagnosis: Same Procedure Performed: Fluoroscopically guided Bilateral Lumbar Radiofrequency Ablation of Medial Branches L 3 , L 4 and L 4 , L 6 Surgeon: Dr. Sarabjit Blanco MD Anesthesia: MAC Estimated Blood Loss: 1 ml Complications: None Description of procedure: Risks, benefits, and alternatives were reviewed with the patient. All questions were answered appropriately. Subsequent to obtaining consent, the patient was taken to the operative room. Time out was called. The operative site and procedure were confirmed with the patient. The patient was then placed in a prone position and Betadine was applied to the lumbar spine and sterile drapes were placed. Under fluoroscopic guidance, a 5 mm active probe was advanced toward the dorsal aspect of the articular pillar, along the course of the L 3 medial branch. Motor stimulation did not reproduce stimulation into the lower extremity. Upon confirmation of placement of the probe using a combination of PA and lateral views, rhizotomy radiofrequency ablation was performed at 80 degrees, 90 second intervals. The procedure was repeated in the same manner to the L 4 L 5 and L6 medial branches bilaterally. Negative hem and negative cerebral spinal fluid was noted throughout the procedure. Marcaine 0.125% with Depo Medrol 40mg injected to site for a total volume of 1.5-2.0 ml. The needle was withdrawn. The patient tolerated the procedure well, without any overt complications and was taken to the recovery room. Home going instructions were given to the patient and the importance of pain diary for follow up was explained prior to procedure. [Electronically Signed on: 12/29/2022 09:03 EDT] Sarabjit Blanco MD [Verified on: 12/29/2022 09:03 EDT] Sarabjit Blanco MD [facility] Patient Handouton 12-29-2022 Patient Handout [facility] Test Urine 1on U Preg Negative [facility] Comment on above: Performed By: #### [id number] ####[facility] (DEFAULT)[address] [place] [address] U Preg Internal Control Pass [facility] Comment on above: Performed By: #### [id number] ####[facility] (DEFAULT)[address] [place] [address] Progress Note - Provideron 0 12-23-2022 Progress Note - Provider [id number] .[id number] [facility] Progress Note-Physicianon Progress Note-Physician DATE OF VISIT: 12/22/2022 This is a phone follow-up visit. HISTORY OF PRESENT ILLNESS: This is a very pleasant 42-year-old female who is status post diagnostic lumbar medial branch block at the level of L3-L4 and L5-L6. This afforded the patient 90+% relief for 2 days and then the pain has gradually been returning. Standing, walking, transitioning aggravates the pain. Extreme physical function and activities aggravate the pain. The patient cannot tolerate to have the low back massaged. The patient takes ibuprofen 800 mg q 8 hours along with baclofen 10 mg q pm. The patient is on metformin and Ozempic. The patient's past medical history, surgical history and review of systems are noted on the chart along with a medication list, allergies and the radiological images. 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 She did take anti-inflammatories. On this phone conversation, the patient describes the pain as being in her low back, left side greater than right-hand side. It is at the junction of the lumbosacral area. With the phone conversation and given the patient's background and the success in the past, we will look to repeat the therapeutic rhizotomy radiofrequency ablation. CURRENT WORING DIAGNOSES: 1. Lumbar degenerative disc disease. 2. Congenital L6 vertebra. 3. Lumbar spondylosis with painful low back, left greater than right. PLAN: 1. Rhizotomy therapeutic radiofrequency ablation at the level of L3-L4 and L5-L6 bilaterally. 2. The patient understands and would like to proceed. Sarabjit Blanco M.D. JOB #: [id number] [Electronically Signed on: 12/27/2022 09:06 EDT] Sarabjit Blanco MD [Verified on: 12/27/2022 09:06 EDT] Sarabjit Blanco MD [Transcribed on: 12/23/2022 09:18 EDT] [facility] Coding Summaryon 12-16-2022 Coding Summary HTMLBase 64 AtyjjkwgGTy6kVb+PGhlY WQ+AO2VVIDrS43ghOBgtK 6VG2bYJG6YFRZGTSAFKH7 SSM0cwPN6KHnvO3GkwaEj PsuveDYuOY11ZFq8PDB2z UlwYEsnnA5ezLHwD5y3Px SqNA62xE65JUkiOZOfLyH 3LjZpbjsgbWFy H3shNtEujFLuGsb+PHRhY mxlIHdpZHRoPScxMDAlJy WxsEfuFO9vYq0cXZCrTYO vbGxhcHNlOiBj h1uaLLAiLLoqPI9mtGclR 7BtxSK6MRTwv6j8Dj17yY I+QPUrDZA0iEdbZIqmd75 7PmUga8rdMNT3 fMMjYDacRRW9S86dn5S7H CUaTAHyTGJ9iMB1qI4znI gdopitQ0IqjDQwWtS2WXL 5iAJhjY1qsDrl dkstfE7uThj+K16OBY1ZD PGVQI2PZvd1R8FpKjuvvT I+ZF70MOBsDS98yFRvrTH by4sdyEh6MiVi VHOoNHK7nLnzAFaxi1FuO SOaD56ugOHlo5N1SMSxsS naaYLsTkWpwVQ1jW4jEPa lpxxib7obxetu Ztovx3fvrh73aZ86Z65bI GafIYImIZX2NLPxNANhrO erjr1ihZ0gUl2+VDmbi0p cz3dcsOz3GlUp AKAstwJvwMmjVIB5e9OnA t67K0FpuYkcz5NuSnr5bw 19eGDem7Z8xRP9MPtiQVH eaA0hDGsqXqO9 KZKzHcWlbP65oXLhUYymT e7ukHjsqXqeLQ7gSUMnxm zzFOJyrJ6iUCDpeGLxtXm hIM1wAWFuggrz m158WvMxBJD5TKTceVCpS 2SlfI9oVvJmYXViHTAzO2 OxbEAuDYsgZ992LLqvBeF 7YXAhjmToQ1Qy HHZcsLsiYdP5e6L4Rj2Km 0JekorzKAZ5CDtcMBEbOs H2ZyMkKqH3D9FeGue5NCH thPorGS8gA4Ev ZXWsatwfpkdizKD3WRSyV ZRluK93gACfKAceEm8bp9 N7q097JUAmFTNvmJ12Wd9 udDogMTBwdCBU mW5hqltdg7tgsqgwIqTqD QYrMOx0HNy7HETutJmtAv PyBVL1NzG9CKE5dDKmgQ2 dyAinusiauY2c Oyc+E83iqL3kLGE0EMY9s skeEVHdgvJqHG19VJ25E2 RyPjwvdGFibGU+PGRpdiB tbNxyOT5nTfTu s5iva9NuKBfyN9YjVEIpT KfgBkc7FDPpZAP1cSJ5fB 8iLAJuDUfsj3B7rII5S7X wqwKkjh8oh3ab SKEpLVbtL61dlDAwc3L0A QFrnZD1GCHlhRpaFeBklN 93Oyc+HFXfcRgxr1BsXyk vr8pqd4eypOb4 ZoSxJXDlysMkvFvkOJW1h 9WgRh03X19pVIbxWYUiHA SbCPJlIVWanGiuor6xgC6 wIi8+PGNvbCB3 kAH8wR6bEJLiCoW1CTwkW 382TmNxtIEyRnyey8ilr0 pzeUx6BkJlEEHchuIymEi zNGH4g2IcHq59 Y43qYOjxSAKoFSIcBOJmL QKkfDwgsw7nuN6qTl5+PC 1eh6hkcq93tY14hZI+PHR aOVT6oHejBZyk KQXokS9aIDkpDsS8WMOaT iXotI40iRElWCujXa9woB hbaHwmCV4iRCMsndjyj38 0GhKvo4gwQRSi hWXxUTciISH8O09ua4X5N GTkMCKaVHH6aFZ6fS9taA lnbjogbGVmdDsgdmVydGl jIHvyYWdjW584 IHRvcDsnPlBhdGllbnQgT dMuLRg4Q3ZtZcb9SNCzrM crPW9yxQWqNIjaCc8vnWz vfUnaOM1nDHDl nntuu286EbTub0jyMHYyk MFjEAnaJSE9E72nl8T8MF YmLEWnPIZ6iNT5lD9qnYj nbjogbGVmdDsg aoZeyVyhWYplUUzhE259W HRvcDsnPkJpcnRoIERhdG N6VX66RK07pNAkn4K3mVY 4X6NfZTYmbtes agptnBB3LSPfNBKysA81V b2ypBlrSq0fINFiJOD1WD EhxZLnH2IrfR0hQkJvRCR tSFMrD0HvmSGm VCoxB889TDbkAbH9PBNur jJoE5UqBUCdcTwxLzW2g9 U9Kp3DW6L5RI63UK73tRC bf4K4mZO4T1By GIUeksytnuovoQN5EQAdQ JLiqD64Jc6qcMhsHk2nNP RwWLT7KHCnwFSeT2UbeQ4 yOiAjMDAwMDAw E4LivITqPRwbL282KWibJ eT8UMLzfmLnD3UgTCGhcG dtIdF5q0T1Rg4FWNs1UD7 4TX02mHBgr9L9 wHX8R4CxTAQrlgycpbups CM4LWSxNHLqkK49Zf3zcI siGv1cJQAbQUJ1ICPxfBH tQ2MsdO5lEvDw RDKcJKJpJ2KdsSXcILzbB 673YAieVgN2WIXjbhEnL1 LhIGObpKnqUkO3h9J4Ck2 PPSAvQN53SJU3 cDK4CU04WP79E2LyHxkfk GFibGU+PHRhYmxlIHdpZH RoPScxMDAlJyBzdHlsZT0 sIc0kZPOtXSRq mZxypIPtYsAan8doLVZlF BlvNJ6zeMegX9NlkGY9CC Wnl6y7Lc49R89bY8BlpWN +XQOxeRM6mFY4 bW7lEjCxRjA5QImlM256I lOqgWGqVeypn3vah1mhqY u6TmC9WXOinzPwvYmjXGA 8a1HoJm61T62j IHdpZHRoPSIxNSUiIHZhb Pxurq8qgP2hGr9+PGNvbC K3zUN6vX1qVcYtNnM9EYz uZ380OjBzrMQs Dsldr6kjg8fnrBl6KrHeD BTtwcQxcKqbBBP6i1HaEh 82M2AkgVnzw0OsXqr2yu2 2sEIfs4Z6uGK0 H5UlZSWmmewkqIBrwUssF H0zYWSaxlryICCysY6xHU XhP3b1ZhMwNpN6ZJkrP9V ajrA5ZMVaySRd ODjxJUN1S41nb5V6ZIOiC NBsVYG8rSC3lP5eiGmvts ogbGVmdDsgdmVydGljYWw lXNqmH406HSBk iXevJVCunR2rCNOjtNLcu SmrAB4tLKWwobkpKn5OLg RJTiwgRUxJWkFCRVRIIEF OTjwvdGQ+PHRk GRD0cMagEBkgIXEmmT3yR TZoZ0j2KtCaExH6LTzyD4 SuIZDwuztzCp59yX9oDqX pEdB0WUduV5Us qkW4FRXtwAVwJSeaKPI8V 56uf9T6QXDlPEWlUMO6rA R0bU4psNqkwsnyyRDijWb gdmVydGljYWwt PDtkT975XUKutLvcMhU2G zIhYaB0FLI9Y7PxKnu9GK OkoIbsFS5rnIEyTRmsUc6 vrZjipPvaRS1i SMIgtpdrTQOltU6kWLQvc HPoaNolWD4dPDXuzwcvy9 49GfWsKIV0JYEwaFSzT2E zfV3zAeWjGZTy GLXxR3MwbCQyLKxaY403Y YuiWpO6NZGhyfChV7BqOC MdfLjdWnF8t1E7Xp08XcQ ZZWFyczwvdGQ+ RSNzVTY3aAbsTBviISAsf T5cEWYlD2o7XcIhAnZ7SG hjY1RpFSPlyoehOt51bW0 hLeGpYlP9MXzf K3AcyzR5NHGxlCLjCWecA YO2X08ii6N0NDQtCDGfLG C4aOJ7uN2cdXiczcthxPD mdDsgdmVydGlj DKtjANmqD702HLXexLdxX kZFTUFMRTwvdGQ+PHRkIH H1fKwpJJesPEPfyA5rJRP tA1a6ZwQrPnJ6 PLddN8AdAPJmzbujUt95c T7lEeHyEoQ4HWsvB4Gkdz Q1XRMrqFTdARdmLVP4X44 ud2P7LVRtGNJx JEJ3fKE3nX3pyNqcegklo GVmdDsgdmVydGljYWwtYW gwW146PQXltCkjDnCqoMR EgLTdBXM0EB39 PH60K0RnZqdkaERheXN+P HRhYmxlIHdpZHRoPScxMD BnMjNldZsbXO4nIy5sCNQ yLWNvbGxhcHNl JkTmt4unXJZpEMrqKB5jk NbmP7OvvWU4XZRdx1q2Qg 92E65kB0JtkLC+PGNvbCB 5bIR6zT5sCaDu AiG0MZlmQ969NuOfzIBjT cdgh4zbl4ojwYo2AzVtET WejyRsnKlfRSX6n7WtLb5 7R38pXAdjIQJm VNKnTPArWVVxtCnexc4vn G9wIi8+ZYFhyCW9vGJ8vC 2aDzNrCxF2PVjkB641MoH irKKnQhodI42x W0VmkUZ+KBUrHar5FZNur OclOV7gfBGtIKvzCm2hNR A0SoEwMcEjTFwbI9OeYCT pbmctcmlnaHQ6 ONPoFQMnzX58If9fmRqgI t4eJSWsRRA0YGFnxTJmF7 JmgT9uIxRiUYAmMIGeX4G vuBLiUFxsU429 QHhnIwT9RDEzycFlQ3NgK UHvxRrzIuO3u0M5Ga4ZsW wwkXCgLO7oMhDhMEn8L9J rYmq5XAYunOpb FA9siFEjEOnrGt2cgBrua RtcEC4rURUfvcxqr220Sf Voo1vtKPHneCGtUDohDWP 6F01nv6E6MZMu YRHvIRA1qWF2eO4rvSuvy jogbGVmdDsgdmVydGljYW myRZlqA679UDTywPveAeI FNks4L2PhEkc1 AXDhxYrpXL3dyRRxSKcaM l7kiNhxyBgyFN9sLNKstc hyl097RxQil9sgBPLirDQ uYZskOWT4A48s o6Z8PEGcPEWuAFF4xAL6k S7wlAxjbqrzvKSmpEhhwz BveBogGFhyIKhhV975LWC dzLxxCi7HPig5 K6AhKdo9FUJpjJfzGM1rg GRcPIliPh3kzOlpdXebPA 3dRVGygqsmf819HpIoq9n kIDEwcHQgVGlt YUU2Y93wn6B1MZIrHXHoM NZ5vRF0oZ1ydGrbvyessK VmdDsgdmVydGljYWwtYWx kL994PHXnmYbj PlBheWVyOjwvdGQ+PC90c u13Z6QtOantAjr7JJLxGO L4lDF2yA0pHYLmMRjtg9X 9fCJ3U0TvtsPj ci1 (more content not included)... [facility] Consent Formson 12-16-2022 Consent Forms [id number] .00OTGTIFF [facility] Inpatient Patient Summaryon 12-15-2022 Inpatient Patient Summary [place] [id number] Patient Discharge Instructions Name: BINTA GRAVES : 1980 Patient Address: [address] [place] [address] Primary Care Provider: Name: JEROD DELEON After you are discharged if you find you have any questions, please, call [phone] ext [phone] to speak to a nurse. Discharge Diagnosis: Anterolisthesis of lumbosacral spine; Lumbar spondylosis Prescription Information: If you have been given a prescription for narcotics, seek immediate medical attention if you have any difficulty breathing or any sudden status changes such as confusion and sleepiness. If you or anyone you know is experiencing suicidal thoughts, mental health, alcohol and/or drug addiction problems; contact the [facility] 25/04 Crisis Hotline -Ixqu 4QGNN ke 916442. If you received any narcotics, sedation, or any other medication that causes drowsiness for the next 24 hours, unless otherwise directed: ? Do not drive a car. ? Do not operate machinery such as power tools, lawn mowers, drills, sewing machines, or stoves ? Avoid alcoholic beverages and drugs for allergies, nerves, or sleep ? Do not make important personal or business decisions or sign any legal documents [facility] would like to thank you for allowing us to assist you with your healthcare needs. The following includes patient education materials and information regarding your injury/illness. BINTA GRAVES has been given the following list of follow-up instructions, prescriptions, and patient education materials: Follow-up Instructions Medications During the course of your visit, your medication list was updated with the most current information. The details of those changes are reflected below: Medications That Were Updated - Follow Below Instructions Other Medications Updated: semaglutide (Ozempic (1 mg dose) 4 mg/3 mL subcutaneous solution) 3 ml(s) Subcutaneous Every Tuesday. Medications to Continue That Have Not Changed Other Medications ibuprofen (ibuprofen 800 mg oral tablet) 1 tab(s) Oral Every 8 hours as needed pain. losartan (losartan 50 mg oral tablet) 1 tab(s) Oral every day. metFORMIN (metFORMIN 500 mg oral tablet, extended release) 1 tab(s) Oral 2 times a day. multivitamin with minerals 1 tab(s) Oral every day. It is important to always keep an active list of medications available so that you can share with other providers and manage your medications appropriately. As an additional courtesy, we are also providing you with your final active medications list that you can keep with you. ibuprofen (ibuprofen 800 mg oral tablet) 1 tab(s) Oral Every 8 hours as needed pain. losartan (losartan 50 mg oral tablet) 1 tab(s) Oral every day. metFORMIN (metFORMIN 500 mg oral tablet, extended release) 1 tab(s) Oral 2 times a day. multivitamin with minerals 1 tab(s) Oral every day. semaglutide (Ozempic (1 mg dose) 4 mg/3 mL subcutaneous solution) 3 ml(s) Subcutaneous Every Tuesday. Take only the medications listed above. Contact your doctor prior to taking any medications not on this list. Diet & Activity Patient Activity Level: Patient Diet: Patient Activity Restrictions: Comment: Patient education materials, if any, will display below Facet Joint Block, Care After This sheet gives you information about how to care for yourself after your procedure. Your health care provider may also give you more specific instructions. If you have problems or questions, contact your health care provider. What can I expect after the procedure? After the procedure, it is common to have: ? Some tenderness over the injection sites for 2 days after the procedure. ? A temporary increase in blood sugar if you have diabetes. Follow these instructions at home: Medicines ? Take gxas-pfm-vgbenmk and prescription medicines only as told by your health care provider. ? You may need to limit pain medicine within the first 4?6 hours after the procedure. Managing pain, stiffness, and swelling If the injection site is tender, try putting ice on the area. To do this: ? Put ice in a plastic bag. ? Place a towel between your skin and the bag. ? Leave the ice on for 20 minutes, 2?3 times a day. General instructions ? Keep track of the amount of pain relief you feel and how long it lasts. ? Remove your bandages (dressings) the morning after the procedure. ? Check your injection site every day for signs of infection. Check for: ? Redness, swelling, or pain. ? Fluid or blood. ? Warmth. ? Pus or a bad smell. ? For the first 24 hours after the procedure: ? Do not apply heat near or over the injection sites. ? Do not take a bath or soak in water, such as in a pool or jean baptiste. ? Do not drive or use heavy machinery unless approved by your h (more content not included)... [facility] MAGR Intraoperative Recordon 12-15-2022 MAGR Intraoperative Record MAGR Intra-Op Record Summary Primary Physician: Sarabjit Blanco MD Finalized Date/Time: 12/15/22 09:41:51 Pt. Name: JELENA BINTAHUAN Duval/Sex: 1980 FEMALE Med Rec #: [id number] Physician: Sarabjit Blanco MD Financial #: [id number] Pt. Type: D Room/Bed: / Admit/Disch: 12/15/22 07:50:00 - 12/15/22 09:33:00 Institution: Case Times MAGR Entry 1 Patient In Room Time 12/15/22 09:17:00 Out Room Time 12/15/22 09:28:00 Anesthesia Start Time 12/15/22 09:19:00 Stop Time 12/15/22 09:27:00 Surgery Start Time 12/15/22 09:19:00 Stop Time 12/15/22 09:27:00 Last Modified By: Jacqueline Matos RN 12/15/22 09:29:38 Case Attendance MAGR Entry 1 Entry 2 Entry 3 Case Attendee Sarabjit Blanco MD, RN, Kathleen A Ayers, Monica MA Role Performed Surgeon - Primary Lease Operator Lease Operator Time In 12/15/22 09:17:00 12/15/22 09:17:00 12/15/22 09:17:00 Time Out 12/15/22 09:28:00 12/15/22 09:28:00 12/15/22 09:28:00 Procedure Medial Branch Medial Branch Medial Branch Block(Bilateral) Block(Bilateral) Block(Bilateral) Last Modified By: Naoma RN, Jacqueline Matos RN, Jacqueline Cedeno RN 12/15/22 09:29:40 12/15/22 09:29:40 12/15/22 09:29:40 Entry 4 Entry 5 Entry 6 Case Attendee Eveline Chen RN, Regina CSFA CST Calmes, Luke T RT (R) ARRT Role Performed Lease Operator Scrub Personnel Bell Cleaner Time In 12/15/22 09:17:00 12/15/22 09:17:00 12/15/22 09:17:00 Time Out 12/15/22 09:28:00 12/15/22 09:28:00 12/15/22 09:28:00 Procedure Medial Branch Medial Branch Medial Branch Block(Bilateral) Block(Bilateral) Block(Bilateral) Last Modified By: Carlo DICKEY, Jacqueline Matos RN, Jacqueline Cedeno RN 12/15/22 09:29:40 12/15/22 09:29:40 12/15/22 09:29:40 Surgical Procedures MAGR Pre-Care Text: A.20 Verifies operative procedure, surgical site, and laterality Im.150 Develops individualized plan of care Entry 1 Procedure Medial Branch Block Primary Procedure Yes Primary Surgeon Sarabjit Blanco MD Modifiers Bilateral Surgeon Comment BILATERAL LUMBAR MEDIAL Start 12/15/22 09:19:00 BRANCH BLOCK L3 L4 L5 L6 Stop 12/15/22 09:27:00 Anesthesia Type Local Surgical Service Pain Management Wound Class Clean Technique Details Closure Technique N/A Entire procedure No was performed via laparoscope or robotic assistance Last Modified By: Jacqueline Matos RN 12/15/22 09:29:42 Post-Care Text: O.730 The patient's care is consistent with the individualized perioperative plan of care General Case Data MAGR Pre-Care Text: A.350.1 Classifies surgical wound Entry 1 Case Information OR MAGR OR 02 Case Level None Wound Class Clean Specialty Pain Management ASA Class N/A Diagnosis Preop Diagnosis LOW BACK PAIN Postop Same As Preop Yes Postop Diagnosis LOW BACK PAIN Blunt or No Is the procedure No penetrating injury considered occured prior to Emergent/Urgent? the start of the procedure: Last Modified By: Jacqueline Matos RN 12/15/22 09:20:01 Post-Care Text: O.760 Patient receives consistent and comparable care regardless of the setting Time Out MAGR Entry 1 Time out date/time 12/15/22 09:18:00 All team members Yes have introduced themselves by name and role Surgeon, Yes Surgeon reviews Yes anesthesia, nurse critical or confirm patient, unexpected steps, site, procedure operative duration, anticipated blood loss Anesthesia team No Nursing team Yes reviews any reviews sterility patient-specific (including concerns indicator results) and equipment issues/concerns Antibiotic Antibiotic N/A prophylaxis given within the last 60 minutes Is essential N/A imaging displayed? Last Modified By: Jacqueline Matos RN 12/15/22 09:20:18 Patient Positioning MAGR Pre-Care Text: A.280 Identifies baseline musculoskeletal status Im.40 Positions the patient Im.80 Applies safety devices Entry 1 Procedure Medial Branch Body Position Prone Block(Bilateral) Left Arm Position Resting at Side Right Arm Position Resting at Side Left Leg Position Extended Right Leg Position Extended Feet Uncrossed? Yes Press Points Checked Yes Positioning Device Pillow, Safety Strap Outcome Met (O.80) Yes Last Modified By: Jacqueline Matos RN 12/15/22 09:20:28 Post-Care Text: E.290 Evaluates musculoskeletal status O.80 Patient is free from signs and symptoms of injury related to positioning Skin Prep MAGR Pre-Care Text: A.30 Verifies allergies Im.270 Performs skin preparation Im.270.1 Implements protective measures to prevent skin and tissue injury due to chemical sources Entry 1 Skin Prep Syntegrity Prep Agents (Im.270) Povidone-Iodine Prep By Vida Figueroa CASHIER GREETER Prep Area (Im.270) Back Prep Area Details Bilateral Skin Prep Agent Dry Yes Without Pooling Hair Removal Syntegrity Hair Removal Methods No hair removal performed Outcome Met (O.100) Yes Last Modified By: Jacqueline Matos RN (more content not included)... [facility] MAGR Preoperative Record MAGR Pre-Op Record Summary Primary Physician: Sarabjit Blanco MD Finalized Date/Time: 12/15/22 09:34:52 Pt. Name: BINTA GRAVES D.O.B./Sex: 1980 FEMALE Med Rec #: [id number] Physician: Sarabjit Blanco MD Financial #: [id number] Pt. Type: D Room/Bed: / Admit/Disch: 12/15/22 07:50:00 - Institution: Pre-Op Case Times MAGR Pre-Care Text: Patient will be optimally prepared for surgery. Patient is free from s/s of injury. Provide information to patient/family related to plan of care. Verify patient allergies. Confirm identity and verify consent before the operative or invasive procedure. Entry 1 Patient Arrival Time 12/15/22 07:59:00 Preop Departure 12/15/22 09:11:00 Last Modified By: Sharon Epstein RN 12/15/22 09:34:48 Post-Care Text: Patient is prepared mentally and physically and is ready for surgery. The patient remains free from s/s of injury. Patient/family express understanding of plan of care and participate in decisions affecting his or her perioperrative plan of care. Allergies documented appropriately. Patient identifiers and consent correct. General Comments: Pt arrives per amb. Pt denies any CP, SOb, Hx of S/S of flu, or sleep apnea. Disch instructions reviewed with pt and verbalized understanding. Finalized By: Sharon Epstein RN Document Signatures Signed By: Sharon Epstein RN 12/15/22 09:34 Normal [facility] Operative Report - Surgeon/P reagan 12-15-2022 Operative Report - Surgeon/Physician Patient: BINTA GRAVES Age: 42 years Sex: FEMALE : 1980 Associated Diagnoses: None Author: Sarabjit Blanco MD Lumbar Medial Branch Block- Bilateral Preoperative Diagnosis: Lumbar spondylosis, Chronic Low Back Pain Postoperative Diagnosis: Same Procedure Performed: Diagnostic Bilateral Lumbar Medial Branch Nerve Block L 3, L 4 and L 5, L 6 ,( c6 Luymbar vetebra) Surgeon: Dr. Sarabjit Blanco MD Anesthesia: local Estimated Blood Loss: 1 ml Complications: None Description of procedure: Risks, benefits, and alternatives were reviewed with the patient. All questions were answered appropriately. Subsequent to obtaining consent, the patient was taken to the operative room. Time out was called. The operative site and procedure were confirmed with the patient. The patient was then placed in a prone position and Betadine was applied to the lumbar spine and sterile drapes were placed. Under fluoroscopic guidance, a 25 gauge spinal needle was advanced toward the pedicle and the base of the lumbar transverse process. It was directed in an anterior and medial direction, utilizing the Nils dog? oblique fluoro view. Upon confirmation of needle tip placement, and upon negative aspiration, Marcaine 0.125% along with Depo Medrol 40mg was injected to block the L 3, L 4 medial branch bilaterally. The procedure was repeated in a similar manner to block the L 5, L 6 branches bilaterally. To block the L5 dorsal ramus, the needle was advanced toward the notch between the sacral ala and the S1 superior articulating process. Once the needle tip position was confirmed, the medication was injected and the needle was withdrawn. 0.5 ml of the drawn medication was injected per medial branch. Negative hem and negative cerebral spinal fluid was noted throughout the procedure. The patient tolerated the procedure well without any overt complications and was then taken to the recovery room. Home going instructions were given to the patient and the importance of pain diary for follow up was explained prior to procedure. [Electronically Signed on: 12/15/2022 09:27 EDT] Sarabjit Blanco MD [Verified on: 12/15/2022 09:27 EDT] Sarabjit Blanco MD [facility] Patient Handouton 12-15-2022 Patient Handout Orthopedics Facet Joint Block, Care After This sheet gives you information about how to care for yourself after your procedure. Your health care provider may also give you more specific instructions. If you have problems or questions, contact your health care provider. What can I expect after the procedure? After the procedure, it is common to have: ? Some tenderness over the injection sites for 2 days after the procedure. ? A temporary increase in blood sugar if you have diabetes. Follow these instructions at home: Medicines ? Take tdre-eis-krkofjw and prescription medicines only as told by your health care provider. ? You may need to limit pain medicine within the first 4?6 hours after the procedure. Managing pain, stiffness, and swelling If the injection site is tender, try putting ice on the area. To do this: ? Put ice in a plastic bag. ? Place a towel between your skin and the bag. ? Leave the ice on for 20 minutes, 2?3 times a day. General instructions ? Keep track of the amount of pain relief you feel and how long it lasts. ? Remove your bandages (dressings) the morning after the procedure. ? Check your injection site every day for signs of infection. Check for: ? Redness, swelling, or pain. ? Fluid or blood. ? Warmth. ? Pus or a bad smell. ? For the first 24 hours after the procedure: ? Do not apply heat near or over the injection sites. ? Do not take a bath or soak in water, such as in a pool or jean baptiste. ? Do not drive or use heavy machinery unless approved by your health care provider. ? Avoid activities that need a lot of effort. ? Rest as told by your health care provider. ? Return to your normal activities as told by your health care provider. Ask your health care provider what activities are safe for you. ? If you have diabetes, monitor your blood sugar levels as told by your health care provider. ? Keep all follow-up visits as told by your health care provider. This is important. Contact a health care provider if: ? You have diabetes and your blood sugar is above 180 mg/dL. ? You have fluid or blood coming from your injection site. ? Your injection site feels warm to the touch. Get help right away if: ? You have a fever or chills. ? You have worsening pain or swelling around an injection site. ? You have pus or a bad smell coming from your injection site. ? There are red streaks around your injection site. ? You have severe pain that is not controlled by your medicines. ? You have a headache, stiff neck, nausea, or vomiting. ? Your eyes become very sensitive to light. ? You have weakness, paralysis, or tingling in your arms or legs that was not there before the procedure. ? You have trouble urinating. ? You have trouble breathing. These symptoms may represent a serious problem that is an emergency. Do not wait to see if the symptoms will go away. Get medical help right away. Call your local emergency services (911 in the [place] Do not drive yourself to the hospital. Summary ? After this procedure, it is common to have tenderness over the injection site and a brief increase in blood sugar if you have diabetes. ? Take tesd-sqa-cglrcgf and prescription medicines only as told by your health care provider. ? Return to your normal activities as told by your health care provider. Ask your health care provider what activities are safe for you. ? Contact a health care provider if fluid is coming from an injection site or if there is significant bleeding or swelling at an injection site. ? Get help right away if you have weakness, paralysis, or tingling in your arms or legs that was not there before the procedure. This information is not intended to replace advice given to you by your health care provider. Make sure you discuss any questions you have with your health care provider. Document Revised: 06/11/2020 Document Reviewed: 08/27/2019 [employer] Patient Education ? 2021 [employer]. Normal [facility] Test Urine 1on U Preg Negative [facility] Comment on above: Performed By: #### 3 [id number] ####[facility] (DEFAULT)[address] [place] [address] U Preg Internal Control Pass [facility] Comment on above: Performed By: #### 3 [id number] ####[facility] (DEFAULT)[address] [place] [id number] Coding Summaryon 12-06-2022 Coding Summary HTMLBase 64 XalpdwtrIJg3iLz+PGhlY WQ+NN5CIMVxJ34raCDxgA 9KD0kNHB0HUOCTZUDPFZ6 AOX7nqGX3KHhcU9EpjlXm MyaxuAYvGJ30BQl5BCU2w UcmPNcalH1jyBAuO7m7Gj TlPK23kS15IAbjHGHyViE 3LjZpbjsgbWFy L2qhRtSadMTqTjm+PHRhY mxlIHdpZHRoPScxMDAlJy ZgeSeaDS3aRb8fYIWuJNR vbGxhcHNlOiBj d1zpCSXtPAruHR0mmHwvR 0StnCO5QWWcl3v9Kd00nG I+KZKiQUO5cAmaNPddn53 9JpSop0qhOBO5 eATlZRvpHNL1B81bs0R5U VNnNXZkTFQ5wBW4nG0koU kunyjqR3IxoQRuFvU1GLR 8wCYspX4rnDcx oqcqpX7wAwa+G54VNB2PH IYVIM6YWab1T8MlAroflX I+CE86KVRmLE48tVVmaIT cz8klnNn5JnZo XBYiWSX2hDxbUSway1AaG TXpJ47cqNYso1F4ILKtwE rzmECbYeWuvRU2iM5kENh uplavn7gtlbxh Abaiv2uqqa63sE71A88lG WsvXNYbXHD1NJCySZMybV gvbx9xbL1dFz4+BIfoa6h qu4icoGr8ErQm MQVtoiQgfAwxVZA8b7DdA u70W4HbnVgry8JvNsf5xf 50pTQeo1J2xBH7HNuyTAW euN3hTEpyXwC8 BOYoWuUhsP46xZAsCYhbJ h9ipDgamEfrAV6pUHHlxd myUYQxtL5lXYEstHCodNi yDQ8mNGPnxslz k161RcWjTCP0OEUioBNrC 5MfuU5kSqDtHQXyVQHwU2 ItpDXoWXymZ475GBplPgE 0DUDdhiWoT0Mp AODurBmkPgM4x6Z5Jw1Xl 6OsthxqGGC8DNhuAAYpGo Y5JmXnSjF7Z5BuVkw1XVJ nsIxpXV2cF8Ku EZNvslzfhekuzUZ5GFLqY ILlgY52hHVfXXziAb9am2 Y0m753KRYfRJVnuO29Io9 udDogMTBwdCBU aU4ckzryp2tbdnpsLyPrQ UUtXAm5PAk4UDDjiZdcJm FaSUY3XnA0VUE7gHPqkJ3 zbXepcecacQ9h Oyc+P70ehC9pFMQ7NYB8q cupJABhjkHdAR95FA72K2 RyPjwvdGFibGU+PGRpdiB sqRofVA2iHeAe l2npa4CeRXgqU1MbOCUzZ QnjZrv0JDHcMFS6lKP3oP 5hDVVjIYldq4Y8oBD0B6W mrcWpzr5kz5py LHOdLVcqT10plCWlz1W5J ZJxuMU2IHBjoAesVxOkiP 93Oyc+FYHvgDwrz5WrFha br1mkh3xbpSx9 FzKdKWOunjXaiXgpIQV4g 5FoMl42V84gOObmDCHnQQ FpFPJfGMPsnNiepy7uuH5 wIi8+PGNvbCB3 lVO4jG5uJMWpJmO1TQopE 545NtBdcXMuMuomn5maf2 gmvQh7OkZtXDAapqMmdOu sYPA9f4EaNd01 L12rTBynIQRwNGFyBJBoJ IDezQrsgq7raZ6aIh9+PC 7ir4ajur13tW43oSS+PHR xEWL5jCgjBNlo MAYzuV1jVVlgJoB4ISHcX zJanB49rECrTKnrEg0idE anbGnhZQ3jSWAuirdbu20 0AzVbz6adZPBg xPUkSWtoAOM1L43kh2Z3N SDjJAKnXJE7sIJ4fP8zkM lnbjogbGVmdDsgdmVydGl mOTsqZVpuS612 IHRvcDsnPlBhdGllbnQgT zNlPDi5D0XtAqz0IXFxgS qlOI0vsSPoETwaNh6rgUq aoAmbUB9iNCFk qxatq022LyTww7cpDDXnu CEpLWqoKCO9B97ue2A1UJ VjTDTgSPK8wGI6hT8cvLk nbjogbGVmdDsg zaYwtLrnARlaCKnqI826X HRvcDsnPkJpcnRoIERhdG P7GD45YV70fETmk3I6nKG 6R6BqIVYjmtwb nrcrrZW1RKCvANRlpW90X e8kfLisUr0gEWVhYEF6FW AxaXLvU6HtmD0uSjLkKTB sZENwJ2KkzYKy XYopT564LNmtQcH0IZRxa cObQ2VyPHFhvJuiYeQ3d4 R3Cc5OB7H4CZ59BG97fKO sp1F3mPZ3L4Lz OGLmdfqwglhlsWQ3AJYpT PYkfS63Xm0qrSkvWl1oGO HqEMA8ICPacJHuX3EmeJ7 yOiAjMDAwMDAw R4RpfZIxRGgbL685SBjnT hP9FOHcqoIoW2YqLIRfgE mgWrR2b2I9Ka4JRGp5NB1 1DD74xIXhf7G0 hTQ5R8KhMGApfoyoqncqb IC6WKSuQDMhxM38Zj5qiQ lhBx2hPGTzMXS7BHUczOB vG0SfrD8aAqAd ANAbSZZlY3EbaGEqQUriW 564GMidNiD9OFApkiRsF9 PaLNWhiDzvMgQ6g4H1Bn4 XEIAeYO65YNC1 nED6EX96SY98G9EsMxrvc GFibGU+PHRhYmxlIHdpZH RoPScxMDAlJyBzdHlsZT0 mRl7lXKUnYENp qQijuSRjQnQev3vdZXLcA VagKI1njJleK4ChcNO7SQ Wjp1r7Ak93Y12yN6EnhYT +WRAfmYF3zTB5 oN2fHqItThH4MHuqA641V vZydEAoMhvce0ltk7sibJ t3DyI2ORPvweVitCgiAIA 7f7SkEx04L37k IHdpZHRoPSIxNSUiIHZhb Jujdc0evD1wIi8+PGNvbC W8mFB9vS7yKeIoXcI9GBx pF757XpMxvVPo Bqdpt6vbj0xvtTy3CcJlQ ZMbioYfaNjdUVP4d7DbIi 81K4CxiNptb4LqWdt6oz8 3dUCgp6L6gTV8 O8LyGESyssamqMHfwQbgJ R3qWVOyppgjUMWxrC2zWC RnM1h9EjPsSgG3DBipL0U hljR1CNHkkSXc BQrrRJV3F31qd9E5YGCpD SErLBU7kIG2sG2hoJpdku ogbGVmdDsgdmVydGljYWw gOBbhO274OPPy pCswJKGmqC6yRIBovQPqx FxiYW4kPGVsdqwzSu3UWi RJTiwgRUxJWkFCRVRIIEF OTjwvdGQ+PHRk NFY9zItsYAbdAQQhwK9hN JSuD9j9BfUpNqQ5KLtfS9 JdUUBhknufXy08qU6bFhN aHcI6GJdiH3Nh onU8HFZdyOGwCYauOYN1R 97ec5J8PKBhFELlUVV9pY T9xC3gcUsxlewknNCkfLr gdmVydGljYWwt WIdnJ922FLToxDcpRzE9L sHbIlB0XKT2L9WaOnh4XU FzkBdlLG5bcWFgMKkfMn5 gyVldtYfoYD6b WPNymvdbDFZzuL3xKHUqb JDvnSuuMA9lZVWvjmnoo9 19SuAjFQT3KUWoeTWqR7H ogG7fLcVrGCNd OYZqZ0JyyNCwWLglI612K HidLgJ1LYOzfbLnN2RyTT VjbXshVtP9p9V3Fe36DeU ZZWFyczwvdGQ+ UJEeAPV7yEjzMHeqOSCfl A4eFKLlO5j0BzHoFkW6MF reO4VsXIGvrtumXi04xP3 sDkKzGeW9FElo B6GhnlA8WSDvtNAqOGfiD BV9Y46ay9P6WECpRSTfMC S4nKT1aU0fbIrlwiwrbAZ mdDsgdmVydGlj PNauZGhvD110FFKjwZvbG kZFTUFMRTwvdGQ+PHRkIH J8uFyzQZnePGEhcQ7jDHP uD5z5GhXxImP7 HAesU4ZgGXDimnljUu15q U5qRiPdRuU3URslY7Igrs O5CSXddHRyRMohFIO4N75 tm7Z7SYSiLHSz IKY2bBR4pR7axJvehosdg GVmdDsgdmVydGljYWwtYW tqH169RABjpHzyOt0YON5 2NR74R6IcYfvy dGFibGU+PHRhYmxlIHdpZ HRoPScxMDAlJyBzdHlsZT 2nXi5pSEDlFVClmAvhxZQ nIbOcg2bkRIMv JThzEY3ekHxyX3JkzLH4Z CTzc8t5Qt85R08nT5LvkB A+VLDmdEV1cLF9fH6gUuO rUqL3KYlkE457 QrLmiQPbDcens2aco1nek Yh7KdRnXMAwraKlmRgiOG K4e5XqZs71H47lSLkxWBL oPSIyMCUiIHZh pRxnnl8iaU2wKt6+PGNvb CI6kHD9vY4iTmObLiP3SU emU985SuSsfBXhYeysN08 wC0LsnOZ+PHRy Uro2BLTwoYnzKN2fkDEwJ OtlFw3gZUQ1JjObSgDiTU kdC4YbRVRxzvupjvyoiWJ 5PNVzNLQyuY18 Mb5uvZkgWg8rHWZmBQW9J UAssDXpO0FbsB7zAuPoAS GcSKAoE6DzlGVgJMbyO04 5JBtxLjD7THOy mfHbU8TeIOGogOmdRyM9r 6U6Bm1BwYqexSFzUT6oIy KuKSw5K3YwWml5KNPulLl bGP3xcQVrESqy Qc9lhBgspRgvVO2pUDSzb pqiw282DiCpk6edAWSsmC RmYYfuUNW1D34wn1Q2NAZ eGGCqPBE1dLH6 zT2vqVjvnycjlOChrAxmq pKsnEbhJYwdJPmiG906AC LrkQwyYrOREei2Y0AeAan 1XNRgrFeoWO7w tXOlUBeoHb1anHkkxIydT Y1cAUShqisku982MtBux9 gvNQWygXYzITooLEB6R90 sc5B0GACwUDPi ORS0lXP4oA0cjIxbtaoes GVmdDsgdmVydGljYWwtYW fgF092HPWrxBqdGf3DBxw 7E6JpIoy6UDIf xLbuFA7jiDSoVMexGb1tv CdcaSwjJI8nLIOnffkyz5 14YkAbr7koZROkkMUlXYp fTGM5Z63cq6V0 CDZqSCIrKLO5eTX5yO2ki GlnbjogbGVmdDsgdmVydG xpVIawYIvbR334XIGygZy nPlBheWVyOjwv dGQ+TW58lc08K6InQpyjJ lo0QXMuEMB1eFG6mG1jSX WqPVzrr1A1kNO9T8PraaF puu2ry4enJARn ZTo (more content not included)... [facility] Progress Note - Provideron 0 12-06-2022 Progress Note - Provider [phone] [id number] .[email or web address] [facility] Progress Note-Physicianon Progress Note-Physician DATE OF VISIT: 12/01/2022 CHIEF COMPLAINT: Low back pain. HISTORY OF PRESENT ILLNESS: This is a very pleasant 42-year-old female who is known to the pain clinic. The patient approximately 3 years ago had a rhizotomy radiofrequency ablation along the posterior elements bilaterally. This has afforded the patient relief however, the pain is gradually returning. The patient has L6 vertebra. The patient has anterolisthesis of her lumbar spine. Ordered x-rays were re-reviewed in the office today. The patient reports pain of 3/10 however, at times it gets to a 6/10. The patient is a very active individual. She does home exercises. 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 Sitting, standing, and lifting aggravates the pain as does bending. The patient takes losartan, metformin, Ozempic 1 mg q weekly, Motrin 800 mg on a prn basis, baclofen on a prn basis. The patient has had increased numbness sensation in her leg and feet of recent also. Standing too long and ADLs aggravate the pain. The patient does have two young children. The patient states the subsequent to the last radiofrequency, her quality of life had improved substantially and as such, the patient does not take any narcotic pain medication. The patient's past medical history, surgical history and review of systems are noted on the chart along with a medication list, allergies and radiological images, including the x-rays which were reviewed with the patient today. PHYSICAL EXAMINATION: This is a pleasant cooperative female who does not appear to be in any acute distress. VITAL SIGNS: Stable. At a height of 63 inches, weighs 115 kg. The patient's facial expressions are within normal limits. The patient maintains a slight kyphotic posture. The patient upon extension aggravates and reproduces the pain. The patient also has difficulty in a rotational component and this is also noted when the patient is backing out of the driveway. This visit was done as a visual phone visit. CURRENT WORING DIAGNOSES: 1. Lumbar spondylosis. 2. Lumbar anterolisthesis, L6 on S1. X-rays confirm this. PLAN: 1. Given that the patient had substantial improvement of her pain, we will look to proceed with one diagnostic block at the level of L3-L4 and L5-L6 bilaterally. 2. The patient understands and would like to proceed. Sarabjit Blanco M.D. JOB #: [id number] [Electronically Signed on: 12/08/2022 10:52 EST] Francis, Sarabjit MD [Verified on: 12/08/2022 10:52 EST] Blanco, Sarabjit MD [Transcribed on: 12/03/2022 11:25 EST] [facility] Coding Summaryon 11-22-2022 Coding Summary HTMLBase 64 NeherrndFYn1lEw+PGhlY WQ+TE0QNMLeW55vdAQknA 0OJ5mJYS2XBKPOWQNLCE1 SPB5pgZG9GZktV0NlqcRo UdhnaDFyKY23RHp8SBQ7i KctSOlxtL8lpHPeK1x1Oc ZtZF62oP94TWbvRONfXhK 3LjZpbjsgbWFy L1mfAfSyyLXeTcp+PHRhY mxlIHdpZHRoPScxMDAlJy QeqVbiRC9jBo5dOZEdXIJ vbGxhcHNlOiBj j1pxFDXbUSofSZ2srYfoP 5XrdRR8QAZey4n8Cs66dP I+ZSFrWRT0dEvcECotr39 0PySvg5xeHRP1 lILjPLfcUDA2Q17ck5H6M HBgOIUbUKU5pMW3tD2prB ceupdxO2PpdKUmQcO0BSD 9vUTfjK0niCfm fpulpH4iTss+O62OEZ6TZ GGNGV7XSkg9Y1SjLlcinI I+HY91QRYnGB17vYYwhDW kp2iafLf9RcLp UKQaINT8gLnyJUypj7RdH WTsM93vqMDnc5J6NBVsxI azeAGqMkYgmJH3zD8pJKc tbbfcc6tgmcnu Jufij7rodl83kI36N14oC RbiLJPzAJA6RBEyDCKgzX jwln7bgO4fVk9+RCztk9j ea4ckoCn2SqHo TRFiymLawLafSIE6o8YnL w38J7JvzItpn8DhPrh7fc 05tRCwy3Y0xVO7JZekXKK qiL6kSWhbWiT4 RCPjHyHnvC62kACiOFbnD a1tjDfrbNgxRI7mSXPiyb jrRQRoaP3bSNSkdKQolAg kXP5hCFFnjdqw x260GfUnOGQ9RHPuvWEcR 8RfxA4xWzPqBAKtWZKhY0 XhlAItKCokM416PQhvBcX 1XHLrxmAjM6Pg EXVcqZvvLrW6b4L7Ql6Gw 4RxbdjcNSE4CSetXOEfQw ZaXaVwAiM2R1WcVdv7FEP eoKybUC1uF8Hc FKCvecmnltgaaJF5CBBkQ MCogT03aYHaARgbZy7bf9 X0c303JQLuYLQlyO83Dw3 udDogMTBwdCBU fA4jtrphw0qkshpsSaHaG YEiLAu5VKd0QEVdqHrlNd MaXDM0ZvX6EOD9fRStiX6 wnKirtealdB6f Oyc+V06woB9gNGQ1AOC5y jkiTLZzkvWfYI44XB55P1 RyPjwvdGFibGU+PGRpdiB zzAbeRM5jIvQd g0kxx2AzOTraY2NjTKJrV RmsCme1NLUaGUV1pBF5nE 4cTQJcAZlko6J5nJK1G9V zsrTuqs7nz5gj OQOqJKlrC89dyREry9X3H OGcoAF4JTLoxIanRmUxnY 93Oyc+SYQhpFxmn5HiWpf ru7bxs2vbfRi8 BeBrRSJakhVluEsnWTI4n 5BhLu64G89eRToyQXWrVC EeGFXiEYGjiXhrje0acG1 wIi8+PGNvbCB3 hWB8eW8eWEBbFaF6BGblQ 452TaLjjQWbZdcze0dsl0 rrbCf0BiZsDSXqxkFzkAs rZSW6p1OdFu42 R37uYTysXJTbGCQnJDOnJ UFtpCegov1qkZ1jXs6+PC 3zd5mzkj82zN66tRA+PHR xQQR2cZcqVOqt UEEidJ4fDPojLuK0XEMxA kRtkL92nNJoEUutKk6lyS dblXotLS6yZPKvtkicd26 6KjEhc4uyULFb sSLwOBqsFID1B66do1L2B RUqGLEbUAQ0jJI5eZ5riZ lnbjogbGVmdDsgdmVydGl lRDvbOUmqE062 IHRvcDsnPlBhdGllbnQgT fHlGWe5Q5QeXec2CXEylZ dfME6zdRAjVSebWh8ohGm toCsfST5sEMOl arvuw211NoHvg3aiFXQgo MSfZAjlJYB1O63yf0R7OS FmHMFlDFL6iQX7kF3noFy nbjogbGVmdDsg ydUnqChbSYisLHvdK459J HRvcDsnPkJpcnRoIERhdG P2ZC33TZ10yBUbr5M5wJR 6K2SiEKQoyhsj svhddGX1DWZkPOAszY10B z1ghBdpRp3pLHFbHML0NQ GzcGRsL0UksW0mYfIzIWJ gKJUrV4IgzDAj WKmbT573UKymOyQ3WMMkg mQgQ0PjUSCqoNevJtH0x8 M0Jz0SG6W8PT58XN38sSO xf0D1nMU8E6Db NVPicsqtfulalHW0RTHuE YOpyX97Qa3zmXbeYo8vPN PlBVR2RGOcoUPaX8MpgS0 yOiAjMDAwMDAw D6HxuLLiCJkyM228HLwwU kH2XKDbmqExI6NdQYRrrV fkGuG9y5H9Jg0CKRr3PR9 7AA83jLAun5B3 tGP0N2AvYLRfdcqwsgost FX5DJVdNDNjiA80Dn2ocZ yjSy6oSXWaVHV6CLDuuBC mY6UdwM0bPyUx CNPtTBTfS1DcpRRaFTrhP 672BAacZkM7GKUywfPzL9 DeSWCqkSavEmC1k8O5Hn1 JEZTlCU17DIY0 xGQ2VE89DP73T0ShRkyaa GFibGU+PHRhYmxlIHdpZH RoPScxMDAlJyBzdHlsZT0 oEg7lSCDcBJTh eJmveETuHzHpv9ecQVGgK DmrLM9yqPvbE5OozPI9IR Idk1b1Mm42G05cL5BmgIX +KFWiiEQ0cZV6 aP9pSmJuSzY0IHlnG074Z iWnpYHuXprun5qnc1rgkN x2VoG3CRIjavSuhZzdFAQ 5o8LtUp56H49p IHdpZHRoPSIxNSUiIHZhb Hcyif1kdY5cHp5+PGNvbC O2rMS6rM7dSbRjXsJ9QMy eU997YhFvlDTk Xszid3kyf9plkDe5TkFoL KTbblMvoVofJSN9u9ZnIz 19A9PkeLcrr3DaEjk4sw7 0tQNye6H3cYK9 U9FoQFJgeknllCPpuPwvN C4oIZSjxgutPIPlaL5rBI KwD2y9VzJaUlS2OAutM2J whnQ7PPDloCVr OZrkKTL5K65gz0B6EJSrT BJkAJX1tDY1dP7hdOcrxx ogbGVmdDsgdmVydGljYWw wCMvzA230UUDb oZkuLFWisL1mBPDzbQKml WesAF6mCFIonjirBw4PTm RJTiwgRUxJWkFCRVRIIEF OTjwvdGQ+PHRk DQR6hMurSXyvWXJhgT1bC TXeE7j3LtIyGnE6EPajG8 BxZLEfaqwlNw18aC5wNxT mGcI1CMvlT2Yk bxD7ZXQrhIBdKPnhGTF7P 76zs1H1XZDcSDRzLNJ2fK R6sS4kfVgsixqlwCGcmWo gdmVydGljYWwt PQkoZ207SVJgvBaeZmK4D iHzTvO8DUG1A2IfAwk6YW SbcYcyMQ8wzYDvAPyvFc6 keMydzQfvQS5w IIBsbhxfSLIaiL3cAMYot EXlmGzuYK1jNNVuhqwbq7 03BsGnAKN1MBMmvZKsW0V gfW4yJoCcBOBv SQHlL2DflKEuDVciY907P YddKlF8SJUxmsIcU6SnTU YviUebVfT0c7P5Tg08UhM ZZWFyczwvdGQ+ ZXZuWUL5iUpxTSguGOLfs F4zGQCsU8z5QvKgTiP0FQ lvA4MhHEQtfehrFz32wW5 hHjOyWlF9EYre P7DbluI6XSAqyOSjXAtlT CZ9T15hw6T6AKLiUWHxOA U1tJT3cS0wwNzsqwzmnEL mdDsgdmVydGlj ELdzOYmnV855VMXwmSpgH kZFTUFMRTwvdGQ+PHRkIH Z9eBeeRAswVBFdlU2sRMY kF9e3GpKvEsW3 ULewY9GxIYHxceydWw42l I5jThSiPsH9ZVbeY6Lbek E4EVEqxBTjKWceVPB1Q42 xy6I7YFRlKYXs RNE8vYE5iR3oxLykuaosa GVmdDsgdmVydGljYWwtYW thI278BZHrhNjoSv7DCV9 5EH09G3PfJljb dGFibGU+PHRhYmxlIHdpZ HRoPScxMDAlJyBzdHlsZT 5gLc9kAJUiSFGgvQlxgRE cHySfa3nkWCQh FQgnCY6cdYenT2XelYL2G WHkt4d6Ru76M38dO6WbiX A+IAHzwSJ8gNP5qJ1bLvD gHbH1MVwoU544 SnNdoFYeHuiyq2rrj1ifl Ok3QxYhNRBmliRuhWjnEL S7z0YeIh49Y51gSGevDYI oPSIyMCUiIHZh qVruhh5ajS8pSs1+PGNvb JR0oST6hN2hIiHdAmQ3LO lrD202KwPslKNdTbzsJ99 iP0FzjQM+PHRy Qii8EKQfnRlsXX9veDGrH FobAd2dASW7GrTaYsCuYO daI2UjFPDieibdnwtbwFX 2YTIhNDCrxF65 Zy2jnGkhCq1yPIExQKX1K MJamJXnY5DfyJ7qPgQgJT BgALPrI8FkoKBjOXveV94 9RMabQbG3UXWh amRfS8NhSDDofGorJwQ5k 3B6Yo6JbNhrcCXkYL0eZh FsPNr6N2VeUom4POUfxZc tXW4qnFIxWXcg Xo0smTucaAwjFO6xATWon amui533ZmAqw1ipELVdjB HjXFboNUX2U13df9N2UED vOXYmMHQ0pSJ1 qS5dySmiuiituTOcfFwws fEbuTkzEYrmMHreV309QD LlhOaoBvSRPmt0E6VoPfg 2WDNelZggDE3t ySIfNRieXv4soTlobIveS X2kLPFmwbkfb684LqDec9 ckECIcqOImADldOBY4S36 ri9J0FXPaBGXg AUJ5zTX2eY4nsPdtwrbkh GVmdDsgdmVydGljYWwtYW alH219JOZmyKvhVj3FFmy 3F4FwDdd9MUGu tUiuVP5neOYqLPmlKo8jn DfwcXrrNN5kSGHoguxqn8 73LiJpk3edHFKsxZZvFCc cBPQ5L10oz0L9 NKLaJERbBUZ9kGA7tJ9xd GlnbjogbGVmdDsgdmVydG evHLlgCXriN344QFJdpGd nPlBheWVyOjwv dGQ+BD90lv39U7KeEdihF mm5ERWiKQA3mSU4gO0vDG DrQDskg2T1yDT3X6TcgaT vio2kv6yrKVVh ZTo (more content not included)... [facility] XR Spine Lumbosacral Complet e w/ Bendingon 11-19-2022 XR Spine Lumbosacral Complete w/ Bending EXAM: XR Spine Lumbosacral Complete w/ Bending HISTORY: Chronic low back pain COMPARISON: None FINDINGS: There are mild multilevel degenerative disc and endplate changes with disc space narrowing, endplate sclerosis and osteophyte formation. There is no evidence of an acute fracture or subluxation. The paravertebral soft tissues are unremarkable. There is no evidence of ligamentous instability on the flexion and extension views. There is no evidence of a pars defect on the oblique view. IMPRESSION: Mild degenerative disc disease. Final Dictated by: Gumaro Navarro DO Dictated DT/TM: 11/21/22 10:48 Signed (Electronic Signature): Gumaro Navarro DO 11/21/22 10:49 a Technologist: GEOFF [facility] MRI LUMBAR SPINE W WO JAVIER Isaac 05-20-2020 MRI LUMBAR SPINE W WO CONTRAST [facility] Department of Radiology [address] [place] [id number] Patient Name: BINTA GRAVES : 1980 Sex: F Age: Race: White Pt. Location: Patient Status: D Ordered Date: 05/02/2020 2:00:00 PM Completed Date: 05/20/2020 02:21 PM Requesting Provider: ZAYDA FRAZIER Attending Provider: ZAYDA FRAZIER Report Copy To: Signs & Symptoms: M54.16 Radiculopathy, lumbar region I10 History: [place] Comments: , Recent lumbar surgery, postop numbness left perineum and left leg, evaluate for nerve compression. , Recent lumbar surgery, postop numbness left perineum and left leg, evaluate for nerve compression. , , , Ordering Provider - A FREDDIE MSN STERILE PROCESS COORDINATOR , Exam: MRI LUMBAR SPINE W WO CONTRAST MRI LUMBAR SPINE W WO CONTRAST 05/20/2020 2:21 PM CLINICAL INDICATIONS: M54.16 Radiculopathy, lumbar region I10 TECHNOLOGIST COMMENTS: Per patient recent lumbar surgery. New low back pain and left leg numbness QUESTION FOR THE RADIOLOGIST: , Recent lumbar surgery, postop numbness left perineum and left leg, evaluate for nerve compression. , Recent lumbar surgery, postop numbness left perineum and left leg, ...More In Sending System PROTOCOL: The following pulse sequences were utilized when imaging the lumbar spine: sagittal T2, sagittal T1, sagittal STIR, axial T2, and axial T1. Post contrast images obtained in sagittal T1 and axial T1. CONTRAST: Contrast: DOTAREM .5mmol, 20 milliliter, Intravenous COMPARISON: Lumbar MRI 03/06/2020. FINDINGS: Exaggerated lordosis in the lower lumbar spine most severely at L6 to S1. Vertebral body height maintained. Conus terminates at L1. At T12-L1: There is a normal disc, central canal, and neural foramen. At L1-L2: There is a normal disc, central canal, and neural foramen. At L2-L3: There is a normal disc, central canal, and neural foramen. At L3-L4: There is a normal disc, central canal, and neural foramen. At L4-L5: There is a normal disc, central canal, and neural foramen At L5-L6: Small posterior disc protrusion. No central canal stenosis or neural foraminal narrowing. At L6-S1: There is severe central canal stenosis at L6-S1 with nerve compression with interval loss of disc space likely sequelae of L6-S1 hemilaminectomy and microdiscectomy. Small fluid collection over the left paraspinous muscles with rim enhancement at the level of L6-S1, the enhancement is traversing anteriorly around the left facet joint and to the lateral anterior aspect of the vertebral body. This could be scar tissue or inflammatory process. At the site of fluid collection small abscess cannot be excluded IMPRESSION: Small fluid collection over the left paraspinous muscles with rim enhancement at the level of L6 to S1. Could represent a small abscess extends inflammatory changes extend anteriorly to the level of the patient's hemilaminectomy. Could represent scar tissue or inflammatory/infectio us process. Approved by:Rosita Nixon05/20/2020 2:55 PM. I, Ymaileth Barragan,have reviewed the images and reports Electronically signed: Yamileth Barragan. Transcribed by: [email or web address], User Resident: ROSITA NIX Electronically Signed by: YAMILETH BARRAGAN @ 05/27/2020 12:36 PM I personally read this/these film(s) with this resident Normal [facility] Comment on above: Order Comment: The A ptima SARS-CoV-2 assay is a nucleic acid amplification test intended for the qualitative detection of RNA from SARS-CoV-2 isolated and purified from nasopharyngeal (COIN MACHINE OPERATOR), nasal and oropharyngeal (OP) swab specimens from patients with signs and symptoms of infection who are suspected of COVID-19. Results are for the identification of SARS-CoV-2 RNA. The SARS-CoV-2 RNA is generally detectable in nasopharyngeal and oropharyngeal swabs during the acute phase of infection. The Aptima SARS-CoV-2 Assay on the [place] [employer] [place] [employer] system is intended for use by laboratory personnel specifically instructed and trained in the operation of the [place] [employer] [place] [employer] system. The Aptima SARS-CoV-2 assay is only for use under the Food and Drug Administration Emergency Use Authorization. Testing is limited to laboratories certified under the Clinical Laboratory Improvement Amendments of 1988 (CLIA), 42 U.S.C. ???263a, to perform high complexity tests. Not Detected: Not detected does not preclude SARS-CoV-2 infection and should not be used as the sole basis for patient management decisions. Not detected results must be combined with clinical observations, patient history, and epidemiological information. Operative Reporton 0 Operative Report MR#: [id number] I [facility] Pt. Name: Binta Graves Room #: 5AB [id number] Discharge 03/09/2020 Date: Birthdate: 1980 OPERATIVE REPORT DATE OF SURGERY: 03/07/2020 SURGEON: Dakota Traylor MD CLINICAL SERVICE: Neurosurgery. PREOPERATIVE DIAGNOSIS: L6-S1 herniated disk with left-sided lumbosacral radiculopathy. POSTOPERATIVE DIAGNOSIS: L6-S1 herniated disk with left-sided lumbosacral radiculopathy. PROCEDURE PERFORMED: Left side L6 hemilaminotomy and L6-S1 microdiskectomy. ANESTHESIA: General endotracheal. ESTIMATED BLOOD LOSS: Minimal. COMPLICATIONS: None. SPECIMEN: None. POSTOPERATIVE DISPOSITION: Recovery room. CONDITION: Stable. INDICATION FOR PROCEDURE: The patient is a pleasant 39-year-old woman. She is obese and has an additional lumbar vertebral body. The incidence between the L6 bone and the top of the sacrum is very acute and there was herniated disk posteriorly, which appears to be impinging the traversing S1 nerve root. I counseled her about the risks and benefits of surgery and her pain fit the distribution expected from the nerve root affected. She voiced understanding and wished to proceed. OPERATIVE REPORT IN DETAIL: After obtaining written informed consent for the procedure, the patient was brought to the operating room and kept on her bed for induction of general anesthesia. After induction of general anesthesia, SCDs were placed on her legs for DVT prophylaxis. She was gently rotated into the prone position on the open Daniel table. Her breasts were kept just below the chest pad and the iliac crest pads and thigh pads were in good position. Her arms were placed on armboards with padding under the elbows and axillas bilaterally and her face was on the prone pillow with no pressure on her eyes, nose, or chin. Her feet were placed on pillows on top of the half table to take tension off her back and legs. Her preoperative x-rays were taken to help localize the level for the incision. Her back was then prepped and draped in the usual sterile fashion. Perioperative IV antibiotic prophylactic therapy was given. The preoperative time-out was completed. 30 mL of 0.25% Marcaine with 1:200,000 epinephrine was instilled for local anesthesia and hemostasis. The skin incision was created in the midline with a 10 blade scalpel. The subcutaneous tissues were divided down to the dorsal lumbo and sacral fascia. Subperiosteal dissection was then used to expose the left-sided mary lamina. X-rays were taken and this was several levels higher than expected. The angle for exposure was angled downward through the same incision and the lower lamina were exposed ultimately with a curette underneath the L6 lamina. The Barnes retractor was inserted with long blades. The curette was used to free up the ligament from underneath the L6 lamina and the L6 lamina which was quite thin, was then removed with Kerrison punches. The nerve root was severely compressed between the lamina and the disk herniation. The nerve root itself was not injured during the hemilaminectomy, but once the laminectomy was completed, the nerve root was able to be gently mobilized medially. Underneath the nerve root, there was a large amount of herniated disk, which was removed with up-biting pituitary rongeurs. The nerve root itself was quite stuck down prior to the diskectomy and once the diskectomy was completed, appeared to be under no tension. The nerve root was inspected as was the thecal sac and no injury seen. The wound was irrigated and checked for hemostasis. 0 Vicryl suture was used to close the muscle fascia and separate 0 Vicryl suture was used to close the subcutaneous fat. The skin was closed with 2-0 Vicryl suture in inverted fashion and the subcu layer of the skin with final skin closure achieved with Dermabond and Steri-Strips. A sterile dressing was applied. The patient was rolled back into the supine position, aroused from anesthesia. She was extubated and taken to the recovery room. She did complain of some new numbness in the same distribution of her pain, but the pain was gone. Dakota Traylor was present for and completed the entire procedure. At the end of the procedure, all sponge, needle, and instrument counts were correct. Electronically Signed by: Dakota Traylor MD 03/25/2020 12:14 A Dakota Traylor MD Date Dict: 03/21/2020/03:16 P/Dakota Traylor MD Date Trans: 03/21/2020 04:34 P/mmo [id number] cc: Jerod Deleon M.D. [address] [facility] [address] Normal [facility] *MRSA/MSSA DNA NASALon 03-07 *MRSA/MSSA DNA NASAL Clinical Report: (D ) Specimen: NASAL SWAB Collected: 03/07/2020 10:30 Status: Final Last Updated: 03/07/2020 16:47 MSSA DNA (Final) Negative MRSA DNA (Final) Negative Normal [facility] Comment on above: Performed By: #### 3 1595 #### [facility] [address] [facility] [place] [address], [facility] BASIC METABOLIC PANELon 06-0 Calcium [Mass/Vol] 8.9 mg/dL Normal 8.6-10.3 [facility] Comment on above: Order Comment: No: D o not add to previous draw Performed By: #### 4 1000, 63083, 17666 #### [facility] [address] [place] [address], [place] Chloride [Moles/Vol] 105 mmol/L Normal 98-107 [facility] Comment on above: Order Comment: No: D o not add to previous draw Performed By: #### 4 1000, 99642, 84147 #### [facility] [address] [place] [address], [place] CO2 [Moles/Vol] 24 mmol/L Normal 21-31 [facility] Comment on above: Order Comment: No: D o not add to previous draw Performed By: #### 4 1000, , 62986 #### [facility] [address] [place] [address], [place] Creatinine [Mass/Vol] 0.75 mg/dL Normal 0.60-1.20 [facility] Comment on above: Order Comment: No: D o not add to previous draw Performed By: #### 4 1000, , 09032 #### [facility] [address] [place] [address], [place] GFR/1.73 sq M predicted among blacks MDRD (S/P/Bld) [Vol rate/Area] mL/min/{1.73_m2} Normal >60 [facility] Comment on above: Order Comment: No: D o not add to previous draw Performed By: #### 4 1000, , [id number] #### [facility] [address] [place] [address], [place] GFR/1.73 sq M predicted among non-blacks MDRD (S/P/Bld) [Vol rate/Area] mL/min/{1.73_m2} Normal >60 [facility] Comment on above: Order Comment: No: D o not add to previous draw Performed By: #### 4 1000, , 09467 #### [facility] [address] [place] [address], [place] Glucose [Mass/Vol] 92 mg/dL Normal 70-100 [facility] Comment on above: Order Comment: No: D o not add to previous draw Performed By: #### 4 1000, , 41043 #### [facility] [address] [place] [address], [place] Potassium [Moles/Vol] 3.8 mmol/L Normal 3.5-5.1 [facility] Comment on above: Order Comment: No: D o not add to previous draw Performed By: #### 4 1000, 14199, 10408 #### [facility] [address] [place] [address], [place] Sodium [Moles/Vol] 136 mmol/L Normal 136-145 [facility] Comment on above: Order Comment: No: D o not add to previous draw Performed By: #### 4 1000, 07912, 21605 #### [facility] [address] [place] [address], [facility] Urea nitrogen [Mass/Vol] 20 mg/dL Normal 7-25 [facility] Comment on above: Order Comment: No: D o not add to previous draw Performed By: #### 4 1000, 22913, 65964 #### [facility] [address] [place] [address], [facility] CBC COMPLETE BLOOD COUNT03-07-2020 Erythrocyte distribution width (RBC) [Ratio] 13.4 % Normal 11.5-15.0 [facility] Comment on above: Order Comment: No: D o not add to previous draw Performed By: #### 5 0608 #### [facility] [address] [place] [id number], [facility] Hematocrit (Bld) [Volume fraction] 44.1 % Normal 36.0-45.0 [facility] Comment on above: Order Comment: No: D o not add to previous draw Performed By: #### 5 0608 #### [facility] [address] [place] [address], [facility] Hemoglobin (Bld) [Mass/Vol] 14.4 g/dL Normal 12.0-15.0 [facility] Comment on above: Order Comment: No: D o not add to previous draw Performed By: #### 5 0608 #### [facility] [address] [place] [address], [place] MCH (RBC) [Entitic mass] 27.0 pg Normal 27.0-33.0 [facility] Comment on above: Order Comment: No: D o not add to previous draw Performed By: #### 5 0608 #### [facility] [address] [place] [address], [facility] MCHC (RBC) [Mass/Vol] 32.7 g/dL Normal 32.0-35.0 [facility] Comment on above: Order Comment: No: D o not add to previous draw Performed By: #### 5 0608 #### [facility] [address] [place] [address], [facility] MCV (RBC) [Entitic vol] 82.7 fL Normal 82.0-98.0 [facility] Comment on above: Order Comment: No: D o not add to previous draw Performed By: #### 5 0608 #### [facility] [address] Nucleated RBC/100 WBC (Bld) [Ratio] 0 % Normal 0-0 [facility] Comment on above: Order Comment: No: D o not add to previous draw Performed By: #### 5 0608 #### [facility] [address] [facility] [place] [address], [facility] PLAT CNT 194 10*3/uL Normal 150-400 [facility] Comment on above: Order Comment: No: D o not add to previous draw Performed By: #### 5 0608 #### [facility] [address] [facility] [place] [address], [facility] RBC (Bld) [#/Vol] 5.33 10*6/uL High 3.80-5.00 [facility] Comment on above: Order Comment: No: D o not add to previous draw Performed By: #### 5 0608 #### [facility] [address] [place] [address], [facility] WBC (Bld) [#/Vol] 8.71 10*3/uL Normal 4.00-10.60 [facility] Comment on above: Order Comment: No: D o not add to previous draw Performed By: #### 5 0608 #### [address] LUMBAR SPINE 2 OR 3 [facility] LUMBAR SPINE 2 OR 3 [facility] Department of Radiology [address] [place] [id number] Patient Name: BINTA GRAVES : 1980 Sex: F Age: Race: White Pt. Location: [id number] Patient Status: I Ordered Date: 03/07/2020 1:00:00 PM Completed Date: 03/07/2020 08:11 PM Requesting Provider: DAKOTA TRAYLOR Attending Provider: ARNEL GARSIA Report Copy To: Signs & Symptoms: L6-S1 microdiscectomy History: Comments: L6-S1 microdiscectomy Exam: LUMBAR SPINE 2 OR 3 [facility] Intraoperative fluoroscopic guidance HISTORY: Microdiscectomy. COMPARISON: Lumbar spine MRI 03/06/2020. IMPRESSION: 1. Hardware projects posterior to the lumbosacral region, please see details within operative report. 29 seconds of fluoroscopy time, 5 images. Electronically signed: Moris Vegas. Transcribed by: [email or web address], User Resident: Electronically Signed by: MORIS VEGAS @ 03/08/2020 08:49 AM Normal [facility] Comment on above: Order Comment: The A ptima SARS-CoV-2 assay is a nucleic acid amplification test intended for the qualitative detection of RNA from SARS-CoV-2 isolated and purified from nasopharyngeal (COIN MACHINE OPERATOR), nasal and oropharyngeal (OP) swab specimens from patients with signs and symptoms of infection who are suspected of COVID-19. Results are for the identification of SARS-CoV-2 RNA. The SARS-CoV-2 RNA is generally detectable in nasopharyngeal and oropharyngeal swabs during the acute phase of infection. The Aptima SARS-CoV-2 Assay on the [employer] [place] [employer] and [place] [employer] system is intended for use by laboratory personnel specifically instructed and trained in the operation of the [place] [employer] [place] [employer] system. The Aptima SARS-CoV-2 assay is only for use under the Food and Drug Administration Emergency Use Authorization. Testing is limited to laboratories certified under the Clinical Laboratory Improvement Amendments of 1988 (CLIA), 42 U.S.C. ???263a, to perform high complexity tests. Not Detected: Not detected does not preclude SARS-CoV-2 infection and should not be used as the sole basis for patient management decisions. Not detected results must be combined with clinical observations, patient history, and epidemiological information. MAGNESIUM BLOODon 03-07-2020 Magnesium [Mass/Vol] 1.9 mg/dL Normal 1.9-2.7 [facility] Comment on above: Order Comment: No: D o not add to previous draw Performed By: #### 4 1000, 87295, 25328 #### [address] OUTSIDE CONSULT NEUROon OUTSIDE CONSULT NEURO [facility] Department of Radiology [address] [place] [id number] Patient Name: BINTA GRAVES : 1980 Sex: F Age: Race: White Pt. Location: [id number] Patient Status: I Ordered Date: 03/06/2020 7:05:00 PM Completed Date: 03/07/2020 11:41 AM Requesting Provider: DAKOTA TRAYLOR Attending Provider: ARNEL GARSIA Report Copy To: Signs & Symptoms: NEED CONSULT History: Lumbosacral transitional anatomy CT of the L-Spine without contrast done on 03/04/2020 At the [facility] Requesting Dr. Dakota Traylor Comments: Exam: OUTSIDE CONSULT NEURO OUTSIDE CONSULT NEURO 03/07/2020 11:41 AM OUTSIDE STUDY: Lumbar spine CT scan TECHNIQUE: Outside CT images of the lumbosacral spine obtained from the [facility] dated March 04, 2020. Image review with formal consultation was requested by Dr. Traylor. FINDINGS :Axial images of the lumbosacral spine were submitted for interpretation with 93 soft tissue and bone window images, coronal and sagittal reconstruction were also submitted. Considering the last period of ribs at T12, there are 5 nonrib-bearing lumbar type vertebral bodies with transitional S1 and disc is seen between S1 and S2. So the lowest level disc is S1-2 with vacuum phenomenon seen and endplate irregularity visualized. There is suggestion of S1 pars defects bilaterally and mild/grade 1 anterolisthesis seen at S1-2. There is exaggerated lumbar lordosis. Vertebral heights and disc heights appear relatively preserved. There is central disc bulge at L3 4-5 and L5-S1 level but without significant canal stenosis. Visualized part of the abdominal viscera appeared grossly unremarkable. Visualized part of the pelvic viscera also appeared unremarkable. IMPRESSION: Exaggerated lumbar lordosis. 6 type lumbar type vertebral bodies with transitional S1 and lumbarization is suggested with rudimentary disc and vacuum phenomenon seen at S1-2. Bilateral S1 spondylolysis and grade 1 spondylolisthesis. Central disc bulges at L4-5 and L5-S1 levels but without canal stenosis. Mild bilateral degenerative sacroiliitis. Lower lumbar facet joint disease. Please note: Our interpretation of studies performed at an outside institution is limited by factors, which may include the absence of technical specifics of the image, undisclosed clinical information and the unavailability of the original interpretation. Specialist at the institution that performed the study may have access to information not available to us that could make a difference in this interpretation. Electronically signed: Ольга Johnson. Transcribed by: [email or web address], User Resident: Electronically Signed by: ОЛЬГА JOHNSON @ 03/07/2020 01:03 PM Normal [facility] PHOSPHORUS BLOODon 0 Phosphate [Mass/Vol] 3.5 mg/dL Normal 2.5-5.0 [facility] Comment on above: Order Comment: No: D o not add to previous draw Performed By: #### 4 1000, 15456, 66131 #### [facility] [address] POC GLUCOSE LABon 03-07-2020 Glucose [Mass/Vol] 97 mg/dL Normal 70-100 [facility] Comment on above: Performed By: #### 8 5499 #### [facility] [address] [place] [address], [facility] TYPE AND SCREENon 03-07-2020 ABO INTERPRETATION O Normal [facility] Comment on above: Performed By: #### 6 2586 #### [facility] [address] [place] [address], [facility] RH INTERPRETATION Negative Normal [facility] Comment on above: Performed By: #### 6 2586 #### [facility] [address] [place] [address], [facility] *SARS-CoV-2 COVID-19on 03-06 [id number] Not Detected Normal Not Detected [facility] Comment on above: Order Comment: The A ptima SARS-CoV-2 assay is a nucleic acid amplification test intended for the qualitative detection of RNA from SARS-CoV-2 isolated and purified from nasopharyngeal (COIN MACHINE OPERATOR), nasal and oropharyngeal (OP) swab specimens from patients with signs and symptoms of infection who are suspected of COVID-19. Results are for the identification of SARS-CoV-2 RNA. The SARS-CoV-2 RNA is generally detectable in nasopharyngeal and oropharyngeal swabs during the acute phase of infection. The Aptima SARS-CoV-2 Assay on the [place] and [place] [employer] system is intended for use by laboratory personnel specifically instructed and trained in the operation of the [place] and [place] [employer] system. The Aptima SARS-CoV-2 assay is only for use under the Food and Drug Administration Emergency Use Authorization. Testing is limited to laboratories certified under the Clinical Laboratory Improvement Amendments of 1988 (CLIA), 42 U.S.C. ???263a, to perform high complexity tests. Not Detected: Not detected does not preclude SARS-CoV-2 infection and should not be used as the sole basis for patient management decisions. Not detected results must be combined with clinical observations, patient history, and epidemiological information. Performed By: #### 3 1792 #### [address] MRI LUMBAR SPINE WO CONTRAST on 03-06-2020 MRI LUMBAR SPINE WO CONTRAST [facility] Department of Radiology [address] [place] [phone] Patient Name: BINTA GRAVES : 1980 Sex: F Age: Race: NA Pt. Location: [id number] Patient Status: I Ordered Date: 03/06/2020 6:40:00 PM Completed Date: 03/06/2020 07:47 PM Requesting Provider: DAKOTA TRAYLOR Attending Provider: ARNEL GARSIA Report Copy To: Signs & Symptoms: Gait Disturbance History: See Comments Comments: Spinal Stenosis, patient with left s1 radicular type pain - has transitional lumbo-sacral anatomy based on CT scan Exam: MRI LUMBAR SPINE WO CONTRAST MRI LUMBAR SPINE WO CONTRAST 03/06/2020 7:47 PM SIGNS AND SYMPTOMS: Gait Disturbance TECHNOLOGIST COMMENTS: c/o low back pain radiating to left leg with weakness QUESTION FOR THE RADIOLOGIST: Spinal Stenosis, patient with left s1 radicular type pain - has transitional lumbo-sacral anatomy based on CT scan PROTOCOL: Multiplanar and T2-weighted MR imaging conducted no contrast administered. COMPARISON: No prior FINDINGS: Alignment: Exaggerated lordosis in the lower lumbar spine suspect approximately 6 mm anterolisthesis of L5 5 on S1 Vertebral bodies: Age-appropriate marrow signal Disc spaces: Moderate narrowing L5-S1 The conus terminates at the T12-L1 level. No epidural or paraspinous fluid collection is appreciated. At T12-L1: No canal stenosis or foraminal narrowing At L1-L2: There is a normal disc, central canal, and neural foramen. At L2-L3: There is a normal disc, central canal, and neural foramen. At L3-L4: There is a normal disc, central canal, and neural foramen. At L4-L5: Small posterior disc protrusion and small annular tear. No canal stenosis. No foraminal narrowing At L5-S1: Posterior broad-based disc bulge and superimposed central disc protrusion. Severe canal stenosis with near complete occlusion of the spinal canal. Severe bilateral foraminal narrowing right greater than left IMPRESSION: At L5-S1 there is posterior broad-based disc bulge with superimposed central disc protrusion. This coupled with exaggerated lordosis and some anterolisthesis is causing very severe spinal canal stenosis with near complete obliteration of the spinal canal. Severe bilateral foraminal narrowing Electronically signed: Yamileth Barragan. Transcribed by: [id number], User Resident: Electronically Signed by: YAMILETH BARRAGAN @ 03/06/2020 07:54 PM Normal [facility] Comment on above: Order Comment: Spina l Stenosis, patient with left s1 radicular type pain - has transitional lumbo-sacral anatomy based on CT scan Encounters Encounter Date Encounter Type Care Provider Facility Start: 12-16-2023 End: 12-16-2023 ambulatory JEROD DELEON Not Available Start: 02-25-2023 End: 02-26-[address] JEROD DELEON Facility: Start: 12-29-2022 End: 12-29-2022 ambulatory [facility] [place] Facility:[facility] Start: 12-22-2022 End: 12-23-2022 ambulatory [facility] [place] Facility:[facility] Start: 12-15-2022 End: 12-15-2022 ambulatory [facility] [place] Facility:[facility] Start: 12-01-2022 End: 12-02-2022 ambulatory [facility] [place] Facility:[facility] Start: 11-19-2022 End: 11-20-2022 ambulatory [facility] [place] Facility:[facility] Start: 12-31-2021 Transcribe Orders Stephanie Grubbs [facility] Physician Referral Service Start: 05-20-2020 End: 05-21-2020 Patient encounter procedure Zayda Freddie Facility:[facility] Start: 03-06-2020 End: 03-09-2020 Evaluation and management of inpatient ARNEL GAVINO Facility:[facility] Procedures Date Procedure Procedure Detail Performing Clinician Start: 03-07-2020 EXCISION OF LUMBOSAC RAL DISC, OPEN APPROACH DAKOTA TRAYLOR Start: 03-07-2020 RELEASE SACRAL NERVE , OPEN APPROACH DAKOTA TRAYLOR Start: 03-07-2020 Antibody screen ARNEL MA HMOOD Comment on above: Performed By: #### [id number] #### [address] Plan of Treatment Date Care Activity Detail Author Start: 05-03-2021 Influenza vaccination Influenza Vacc ine (#1) [facility] Start: 2001 Screening for malign ant neoplasm of cervix Pap Smear [facility] Start: 1998 Hepatitis C screening Hepatitis C An tibody [facility] Start: 1998 Tetanus + diphtheria + acellular pertussis vaccine (product) Tdap Booster [facility] Start: 1995 HIV screening HIV Test [facility] Start: 1985 COVID-19 Vaccine (1) COVID-19 Vaccin e (1) [facility] Payers Date Payer Category Payer Unknown [id number] 2022 Unknown [id number] 2021 Unknown [id number] 1980 Unknown [id number] 2.16.8 [id number] 1980 Unknown [id number] 2.16.8 [id number] 1980 Unknown [id number] 2.16.8 [id number] 1980 Unknown [id number] 2.16.8 [id number] 1980 Unknown [id number] 2.16.8 [id number] 1980 Unknown [id number] 2.16.8 [id number] 1980 Unknown [id number] 2.16.8 [id number] 1980 Unknown [id number] 2.16.84 [id number] 1959 Self-pay [id number] Unknown [id number] 2.16.84 [id number] Social History Date Type Detail Facility Tobacco smoking stat [facility] Tobacco smoking consumption unknown [facility] Start: 1980 Sex Assigned At Not on file M [facility] Medication management note 12-30-2022 Note Date & Type Note Facility 12-30-2022 Note [id number] [facility] Clinical Note 12-29-2022 Note Date & Type Note Facility 12-29-2022 Note [facility] SURGERY Clinical Discharge Summary PERSON INFORMATION Name BINTA GRAVES Age 42 Years 1980 Sex FEMALE Language Moldovan PCP JEROD DELEON Marital Status Med Service Pain Management Surgery Acct# Arrival 12/29/2022 07:38:41 Visit Reason LOW BACK PAIN Acuity LOS 012 22:22 Address: [address] [place] [address] [address] [facility] [address] Comment: PROVIDER INFORMATION VITALS INFORMATION Vital Sign Triage Latest Temp Oral Temp Temporal Temp Intravascular Temp Axillary Temp Rectal 02 Sat 100 % 100 % Respiratory Rate Peripheral Pulse Rate Apical Heart Rate Blood Pressure / 92 mmHg / 92 mmHg Comment: MEDICAL INFORMATION Allergy Info: No Known Medication Allergies Prescriptions Given: ibuprofen (ibuprofen 800 mg oral tablet) 1 tab(s) Oral Every 8 hours as needed pain. losartan (losartan 50 mg oral tablet) 1 tab(s) Oral every day. metFORMIN (metFORMIN 500 mg oral tablet, extended release) 1 tab(s) Oral 2 times a day. multivitamin with minerals 1 tab(s) Oral every day. semaglutide (Ozempic (1 mg dose) 4 mg/3 mL subcutaneous solution) 3 ml(s) Subcutaneous Every Tuesday. Medication List: Medications to Continue That Have Not Changed Other Medications ibuprofen (ibuprofen 800 mg oral tablet) 1 tab(s) Oral Every 8 hours as needed pain. losartan (losartan 50 mg oral tablet) 1 tab(s) Oral every day. metFORMIN (metFORMIN 500 mg oral tablet, extended release) 1 tab(s) Oral 2 times a day. multivitamin with minerals 1 tab(s) Oral every day. semaglutide (Ozempic (1 mg dose) 4 mg/3 mL subcutaneous solution) 3 ml(s) Subcutaneous Every Tuesday. Medications to Continue That Have Not Changed Other Medications ibuprofen (ibuprofen 800 mg oral tablet) 1 tab(s) Oral Every 8 hours as needed pain. losartan (losartan 50 mg oral tablet) 1 tab(s) Oral every day. metFORMIN (metFORMIN 500 mg oral tablet, extended release) 1 tab(s) Oral 2 times a day. multivitamin with minerals 1 tab(s) Oral every day. semaglutide (Ozempic (1 mg dose) 4 mg/3 mL subcutaneous solution) 3 ml(s) Subcutaneous Every Tuesday. Medications to Continue That Have Not Changed Other Medications ibuprofen (ibuprofen 800 mg oral tablet) 1 tab(s) Oral Every 8 hours as needed pain. losartan (losartan 50 mg oral tablet) 1 tab(s) Oral every day. metFORMIN (metFORMIN 500 mg oral tablet, extended release) 1 tab(s) Oral 2 times a day. multivitamin with minerals 1 tab(s) Oral every day. semaglutide (Ozempic (1 mg dose) 4 mg/3 mL subcutaneous solution) 3 ml(s) Subcutaneous Every Tuesday. Comment: Lab and Radiology Results Laboratory or Other Results This Visit (last charted value for your 12/29/2022 visit) Chemistry 12/29/2022 7:45 AM U Preg: Negative DIET & ACTIVITY Patient Activity Level: Patient Diet: Patient Activity Restrictions: DISCHARGE INFORMATION Discharge Disposition: Discharge Location: DEPART REASON INCOMPLETE INFORMATION PATIENT EDUCATION INFORMATION Instructions: Follow up: DIAGNOSIS Anterolisthesis of lumbosacral spine; Lumbar spondylosis Comment: PHYS DOC NOTES [facility] History and physical note 12-28-2022 Note Date & Type Note Facility 12-28-2022 Note [id number] The patient has been examined and the medical record reviewed. The indications for surgery and exam are unchanged. [Electronically Signed on: 12/29/2022 08:15 EDT] Sarabjit Blanco MD [Verified on: 12/29/2022 08:15 EDT] Sarabjit Blanco MD [Transcribed on: 12/28/2022 14:33 EDT] [facility] Medication management note 12-16-2022 Note Date & Type Note Facility 12-16-2022 Note [id number] FF [facility] Clinical Note 12-15-2022 Note Date & Type Note Facility 12-15-2022 Note [facility] SURGERY Clinical Discharge Summary PERSON INFORMATION Name BINTA GRAVES Age 42 Years 1980 Sex FEMALE Language Moldovan PCP JEROD DELEON Marital Status Med Service Pain Management Surgery Acct# Arrival 12/15/2022 07:50:00 Visit Reason LOW BACK PAIN Acuity LOS 012 00:14 Address: [address] [place] [address] [address] [facility] [address] Comment: PROVIDER INFORMATION VITALS INFORMATION Vital Sign Triage Latest Temp Oral Temp Temporal Temp Intravascular Temp Axillary Temp Rectal 02 Sat 100 % 100 % Respiratory Rate Peripheral Pulse Rate Apical Heart Rate Blood Pressure / 98 mmHg / 98 mmHg Comment: MEDICAL INFORMATION Allergy Info: No Known Medication Allergies Prescriptions Given: ibuprofen (ibuprofen 800 mg oral tablet) 1 tab(s) Oral Every 8 hours as needed pain. losartan (losartan 50 mg oral tablet) 1 tab(s) Oral every day. metFORMIN (metFORMIN 500 mg oral tablet, extended release) 1 tab(s) Oral 2 times a day. multivitamin with minerals 1 tab(s) Oral every day. semaglutide (Ozempic (1 mg dose) 4 mg/3 mL subcutaneous solution) 3 ml(s) Subcutaneous Every Tuesday. Medication List: Medications That Were Updated - Follow Below Instructions Other Medications Updated: semaglutide (Ozempic (1 mg dose) 4 mg/3 mL subcutaneous solution) 3 ml(s) Subcutaneous Every Tuesday. Medications to Continue That Have Not Changed Other Medications ibuprofen (ibuprofen 800 mg oral tablet) 1 tab(s) Oral Every 8 hours as needed pain. losartan (losartan 50 mg oral tablet) 1 tab(s) Oral every day. metFORMIN (metFORMIN 500 mg oral tablet, extended release) 1 tab(s) Oral 2 times a day. multivitamin with minerals 1 tab(s) Oral every day. Medications That Were Updated - Follow Below Instructions Other Medications Updated: semaglutide (Ozempic (1 mg dose) 4 mg/3 mL subcutaneous solution) 3 ml(s) Subcutaneous Every Tuesday. Medications to Continue That Have Not Changed Other Medications ibuprofen (ibuprofen 800 mg oral tablet) 1 tab(s) Oral Every 8 hours as needed pain. losartan (losartan 50 mg oral tablet) 1 tab(s) Oral every day. metFORMIN (metFORMIN 500 mg oral tablet, extended release) 1 tab(s) Oral 2 times a day. multivitamin with minerals 1 tab(s) Oral every day. Medications That Were Updated - Follow Below Instructions Other Medications Updated: semaglutide (Ozempic (1 mg dose) 4 mg/3 mL subcutaneous solution) 3 ml(s) Subcutaneous Every Tuesday. Medications to Continue That Have Not Changed Other Medications ibuprofen (ibuprofen 800 mg oral tablet) 1 tab(s) Oral Every 8 hours as needed pain. losartan (losartan 50 mg oral tablet) 1 tab(s) Oral every day. metFORMIN (metFORMIN 500 mg oral tablet, extended release) 1 tab(s) Oral 2 times a day. multivitamin with minerals 1 tab(s) Oral every day. Comment: Lab and Radiology Results Laboratory or Other Results This Visit (last charted value for your 12/15/2022 visit) Chemistry 12/15/2022 8:04 AM U Preg: Negative DIET & ACTIVITY Patient Activity Level: Patient Diet: Patient Activity Restrictions: DISCHARGE INFORMATION Discharge Disposition: Discharge Location: DEPART REASON INCOMPLETE INFORMATION PATIENT EDUCATION INFORMATION Instructions: Facet Joint Block, Care After Follow up: Type Location Start Finish State Pain Post Procedure (MAGR) PAIN MANAGE 12/22/2022 3:00 PM 12/22/2022 3:15 PM Confirmed DIAGNOSIS Anterolisthesis of lumbosacral spine; Lumbar spondylosis Comment: PHYS DOC NOTES [facility] History and physical note 12-15-2022 Note Date & Type Note Facility 12-15-2022 Note Patient: TAMMY GRAVES Age: 42 years Sex: FEMALE : 1980 Associated Diagnoses: None Author: Sarabjit Blanco MD Chief Complaint Low Back Pain Review of Systems Constitutional: Negative. Eye: Negative. Ear/Nose/Mouth/Throat: Negative. Respiratory: Negative. Cardiovascular: Negative. Gastrointestinal: Negative. Genitourinary: Negative. Integumentary: Negative. Neurologic: Negative. Psychiatric: Negative. Health Status Allergies: Allergic Reactions (All) No Known Medication Allergies, Allergies (1) Active Severity Reaction No Known Medication Allergies None Documented Current medications: (Selected) Inpatient Medications Ordered Sodium Chloride 0.9% intravenous solution 500 mL: 20 mL/hr, IV Documented Medications Documented Ozempic (1 mg dose) 4 mg/3 mL subcutaneous solution: 3 ml(s), SubQ, qFriday, 0 Refill(s) ibuprofen 800 mg oral tablet: 800 mg = 1 tab(s), PO, q8hr, PRN: pain, 30 tab(s), 0 Refill(s) losartan 50 mg oral tablet: 50 mg = 1 tab(s), PO, Daily, 30 tab(s), 0 Refill(s) metFORMIN 500 mg oral tablet, extended release: 500 mg = 1 tab(s), PO, BID, 30 tab(s), 0 Refill(s) multivitamin with minerals: 1 tab(s), PO, Daily, 0 Refill(s), Home Medications (5) Active ibuprofen 800 mg oral tablet 800 mg = 1 tab(s), PRN, PO, q8hr losartan 50 mg oral tablet 50 mg = 1 tab(s), PO, Daily metFORMIN 500 mg oral tablet, extended release 500 mg = 1 tab(s), PO, BID multivitamin with minerals 1 tab(s), PO, Daily Ozempic (1 mg dose) 4 mg/3 mL subcutaneous solution 3 ml(s), SubQ, qFriday , Medications (1) Active Scheduled: (0) Continuous: (1) Sodium Chloride 0.9% intravenous solution 500 mL 500 mL, IV, 20 mL/hr PRN: (0) Problem list (past medical history): All Problems Anterolisthesis of lumbosacral spine / SNOMED CT 880107869 / Confirmed Lumbar spondylosis / SNOMED CT 145870596 / Confirmed, Active Problems (2) Anterolisthesis of lumbosacral spine Lumbar spondylosis Histories Family History: No family history items have been selected or recorded. Procedure history: Facet joint nerve block ([id number]) on 12/15/2022 at 42 Years. Comments: 12/15/2022 8:01 EDT - Gail Morgan MA [id number] Social History Social & Psychosocial Habits Tobacco 12/15/2022 Smoking tobacco use: Never tobacco user Electronic Cigarette/Vaping 12/15/2022 Electronic Cigarette Use: Never . Physical Examination VS/Measurements Vital Signs 12/15/2022 8:00 EDT Temperature Temporal Artery 36.3 DegC Peripheral Pulse Rate 84 bpm Respiratory Rate 18 br/min Systolic Blood Pressure 148 mmHg HI Diastolic Blood Pressure 98 mmHg HI SpO2 100 % Oxygen Therapy Room air , Vital Signs (last 24 hrs) Last Charted Heart Rate Peripheral 84 bpm (DEC 15 08:00) Resp Rate 18 br/min (DEC 15 08:00) SBP H 148 mmHg (DEC 15 08:00) DBP H 98 mmHg (DEC 15 08:) Weight 118.90 kg (DEC 15 08:) Height 172.72 cm (DEC 15:) , Measurements from flowsheet : Measurements 12/15/2022 8:00 EDT Height 172.720 cm Height/Length Dosing 172.720 cm Weight 118.900 kg Weight Dosing 118.900 kg Body Mass Index 39.860 kg/m2 General: Alert and oriented. Eye: Pupils are equal, round and reactive to light. HENT: Normocephalic. Neck: Supple. Respiratory: Lungs are clear to auscultation. Cardiovascular: Normal rate. Gastrointestinal: Soft, Non-tender, Non-distended. Integumentary: Warm, Dry, Roper. Neurologic: Alert, Oriented. Psychiatric: Cooperative. Review / Management Results review: Lab results: 12/15/2022 8:04 EDT U Preg Negative . Impression and Plan Lumbar Spondylosis , Procedure explained to patient along with risks of possible complications and patient wishes to proceed. [Electronically Signed on: 12/15/2022 09:04 EDT] Sarabjit Blanco MD [Verified on: 12/15/2022 09:04 EDT] Sarabjit Blanco MD [facility] History and physical note 12-14-2022 Note Date & Type Note Facility 12-14-2022 Note [id number] The patient has been examined and the medical record reviewed. The indications for surgery and exam are unchanged. [Electronically Signed on: 12/15/2022 09:02 EDT] Sarabjit Blanco MD [Verified on: 12/15/2022 09:02 EDT] Sarabjit Blanco MD [Transcribed on: 12/14/2022 13:35 EDT] [facility] Evaluation note Note Date & Type Note Facility Evaluation note Diagnosis Obesity, morbid, BMI 40.0-49.9 (HCC)- Primary documented in this encounter [facility] Summary Purpose Family History No Family History Records FoundNo Family History Records FoundNo Family History Records FoundNo Family History Records Found Advance Directives No Advanced Directives Records FoundNo Advanced Directives Records FoundNo Advanced Directives Records FoundNo Advanced Directives Records Found Hospital Course Note MR#: [id number] [facility] Pt. Name: Binta Graves Admitted: 03/06/2020 Discharged: 03/08/2020 Date of : 1980 Physician: Arnel Garsai MD DISCHARGE SUMMARY PRIMARY CARE PHYSICIAN: None. CONSULTING PHYSICIAN: [facility] FINAL DIAGNOSES: 1. Acute lumbar radiculopathy/lumbar spine stenosis, status post laminectomy, doing well. 2. Essential hypertension, stable. 3. Polycystic ovarian disease, on metformin. 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 Further workup including MRI of lumbar spine revealed significant stenosis with multiple levels disk bulge. So, the patient was seen by Neurosurgery in consultation and the patient was taken for hemilaminectomy. The patient tolerated very well. Postprocedure, the patient did well with near resolution of weakne (more content not included)... Reason for Referral Specialty Diagnoses / Procedures Referred By Jerel t Referred To Contact Internal Medicine Diagnoses Obesity, morbid, BMI 40.0-49.9 (HCC) Procedures [facility] WEIGHT MANAGEMENT SERVICE REQUEST LVL 3 EST PT, LOW MDM, 20-29 MINUTES Jerod Deleon MD [address] [place] [address] [address] Management [address] [place], [place] [id number] Referral ID Status Reason Start Date Expiration Date V isits Requested Visits Authorized [id number] Authorized 12/31/2021 12/31/2022 10 10 Additional Source Comments INFORMATION SOURCE (unrecogn ized section and content) DATE CREATED AUTHOR 05/28/2020 [facility] DATE CREATED AUTHOR AUTHOR'S ORGANIZ ATION 03/11/2023 [facility] DATE CREATED AUTHOR AUTHOR'S ORGANIZ ATION 03/11/2023 [facility] DATE CREATED AUTHOR AUTHOR'S ORGANIZ ATION 12/17/2023 [facility] FOR RECORDS PERTAINING TO PATIENTS WHO ARE OR HAVE BEEN ENROLLED IN A CHEMICAL DEPENDENCY/SUBSTANCEABUSE PROGRAM, SOME INFORMATION MAY BE OMITTED. This clinical summary was aggregated from multiple sources. Caution should be exercised in using it in the provision of clinical care. This summary normalizes information from multiple sources, and as a consequence, information in this document may materially change the coding, format and clinical context of patient data. In addition, data may be omitted in some cases. CLINICAL DECISIONS SHOULD BE BASED ON THE PRIMARY CLINICAL RECORDS. [facility] [facility]. provides no warranty or guarantee of the accuracy or completeness of information in this document.
== END 2023-12-20 13:33 | disposition home or self-care (01) ==
LOC: MRI 13:32
PROVIDERS: PCP Family Medicine; Visit Provider Nurse Practitioner
DX: M54.16 Radiculopathy, lumbar region (principal); M47.816 Spondylosis without myelopathy or radiculopathy, lumbar region; M96.1 Postlaminectomy syndrome, not elsewhere classified; M51.36 Other intervertebral disc degeneration, lumbar region
CPT/HCPCS: 72148

== ENCOUNTER 2024-01-27 07:59 | Outpatient (OUT) | payer BC, SELFPAY ==
--- NOTE | 2024-01-27 08:07 | XR_ITS ---
The [address] [address] Patient Name: JEIMY BOWLES MRN: [id number] date: 1980 Sex: F Assigned Patient Location: [facility] Current Patient Location: Accession/Order Number: [id number] Exam Date: 01/27/2024 08:15 Report Date: 01/30/2024 06:57 At the request of: ABILIO FINCH Procedure: XR lumbar spine 6V w bending EXAMINATION: XR lumbar spine 6V w bending HISTORY: Low Back Pain , chronic; new numbness and tingling of right leg COMPARISON: XR spine lumbosacral 11/19/2022 FINDINGS: BONES: Minimal left convex curvature lumbar spine. Minimal grade 1 retrolisthesis of L3 on 4 and L4 on 5 develops during flexion. No fracture or bone lesion. Minimal degenerative facet arthropathy L4-5, L5-S1. DISC SPACES: No significant disc height narrowing, subluxation, or endplate abnormality. PARASPINOUS: Negative. No paraspinous abnormality is seen. OTHER: Negative. XR/XR lumbar spine 6V w bending IMPRESSION: 1. Minimal degenerative changes; grossly stable. 2. No appreciable acute abnormality. Electronically authenticated by: PRISCILA PRYOR Date: 01/30/2024 06:57
--- OUTSIDE RECORDS SUMMARY | 2024-01-27 08:21 | XMS_ITS | CCD ---
Author Organization [facility] Care Team Providers Care Agency Owner Name Role Phone GAVINO, ARNEL Admitting Unavailable GAVINO ARNEL Attending Unavailable SAMMI ARRIETA Referring Unavailable NADERER, JEROD Primary Care Unavailable [place] Procedure Practitioner Unavailab le UNKNOWN, PROVIDER Surgeon Unavailable Ovitt, Zayda Admitting Unavailable Ovitt, Zayda Attending Unavailable NADERER, JEROD Referring Unavailable NADERER, JEROD Primary Care Unavailable Unavailable Primary Care Provider Unavailmercedes DELEON, DR BARRETT A Primary Care Unavailable ANATOLIY ., CALIXTO Attending Unavailable ANATOLIY ., CALIXTO Consulting Unavailable AANTOLIY ., CALIXTO Admitting Unavailable Blanco, Sarabjit Attending [...] Primary Care Unavailable NADERER, JEROD Attending Unavailable NADERER, JEROD Attending Unavailable DAKOTA TRAYLOR Referring Unavailable Allergies Allergy Classification Reported Allergen(s) Allergy Type Date of Onset Reaction(s) Facility (1 source) No Known Medication Allergies; Translations: [No Known Medication Allergies] Propensity to adverse reactions to drug (disorder) [facility] Repository (1 source) ALLERGIES NOT ON FILE; Translations: [ALLERGIES NOT ON FILE] Propensity to adverse reactions (disorder) [facility] Repository Problems Problem Classification Problem Date Documented Da te Episodic/Chronic Administrative/social admission (4 sources) Encounter for pre-employment examination; Translations: [ENCOUNTER FOR PRE-EMPLOYMENT EXAM] Onset: 02-25-2023 Episodic Other nutritional; endocrine; and metabolic disorders (1 source) Body mass index 40+ - severely obese; Translations: [Morbid (severe) obesity due to excess calories] Chronic Results Test Name Value Interpretation Reference Range Facility Orders Onlyon 01-18-2024 Orders Only [id number] Binta Graves 1980 F Date Provider Department Center 01/18/2024 ZAYDA MARTINS ONC DCC No family history on file Normal [facility] Coding Summaryon 03-03-2023 Coding Summary HTMLBase 64 QczhesvpLFd8cXh+PGhlY WQ+TL1MOZCwQ32inLGklZ 9uY3PZLWkEEgdaBRUCOOg DWnGinfAeRE9twJAiQXLk IC8+KT5nNQVoEavguIShi 4C1rBO6A03mwh7kCYeilH C1TJEnBiLyhfpbj4sekYk 6IDcuNmluOyBt DJFokM71TYW6uI34Bu33n YKpvRXfq4gffKk9ItTwZF NyABA7eVokEUadw9LrNUD cU30ajUQfp4Q8 QXIbbKjlzOIjHwGxbFS7p Y1hJRgtrjrih9bncajoLi z9lj18dOZlu8O6fRS4H3D fmnN8WXZseSPe GpbiyCROwD4rzctbi9udv ibgKtEfOMIbEGb3PCb6JV KpjTjvMwYwII34BUZ1HPH qpkJvE5GtSUMo oYxaSlJ9f3J6Av3IV5FRW bcgU0ZIPQOCBNkfmYH+PC 18vb56A2MvWbkfKyk1HNL nYAK4wKC9xC3h JJMnMPjcs9Q0oSU4T0Tah fVvml6yg3pwYRTaLCmgT3 7tgCWwr4V4HKSseDL7CEM bsIouSwBrsQ19 Oyc+NOTyaHqjc2UpBxpgj 5fyw6fesAs1XludQIHvsg YuhKvqIEZ8c9ZjDc4tZPO udBN2zZJ3rD5w YqOjMiG1LLbpJ810KkKwg UHzZqzfP59oO2ZpmLG+PH ZqNgu8QPIcxMclCR4qS8M hZGRpbmctbGVm iKpaIV2xEOBuosduIMKjd P8tFORtU4t6UuKiCpC8QY ufU5QtEIOizqptPa26aM9 lSrFxCnC4OKdt G4AbrtS5WNPylFUiOGggZ VA9Q72pz0L2COGnNZZhIZ U3qDA0jK5daNpapxwupRF mdDsgdmVydGlj KTxjETwzO968GKLghWzfE kNvZGluZyBEYXRlOiAgMD YvMDEvMjAyMzwvdGQ+PHR qKNE6wQsbEWXt gPGgVCgpOb8wkFidfLxfK P2iNMImnnvaSLRibY2mWZ HcwIMfxGoqAH4xZPAwpsp pi929UsLbRUC5 OMKdtPShF0AtrY4aLaLvC EMtFDHhD8YybYWjQWxeW1 26NOeuFfU5DYDmdwLkY5G sLWFsaWduOiB0 e6E8Un8Tk8IiyafpW2Gmx OGwBpYmEtwhVHj3C4CzWi wvdHI+HD64MCTaQN57NBz 8NZK0iDqyGOym NYQjE9AwwQ0cSnTyUYHvE GRkOyc+PHRhYmxlIHdpZH RoPScxMDAlJyBzdHlsZT0 gCe7vEETnKUQw xAhdiEXjRrNxy4odMMLzD XioUE9ltAkpB0DfgRN5NR Lyf0i3Cv44E03hI9GwkGH +QDFetVJ1oRO3 rJ8jMpNmXiV6VOlgK860W fWffQGnBgkht6jru9bqwN t0AsI1NNIvavThjTslBCL 3n8HcZi13O90z IHdpZHRoPSIxNSUiIHZhb Yddgv2hqQ0yLm8+PGNvbC R8sTA2kN3wQfMrBbM5OWh iR876VgSrvPDx Vayrx0bhu2rgkXt0YwDzW GUxlqFeyTvwSIK4c8ZqEa 31J7SdvNdtv1JhXfq3rp0 8vJOxq4H4eZD1 W7LnFJJrfusqbEZuaAqhN Z1rAQRwltgsYBCziR2vNO QaU4e5EwHcCjR4LEhlS3Z zukT9YXFccIDs IFCjnTXZpZ6slosnh9lwb fbkAeXpUUWcLJq9VWh1AP KucSvuUqOiGRF2JfF3QJR 2vRMcaT7ltImq vggebL3kAvc+WHD4tKLur SLMNP6yXjpzhGT+PHRkIH C7aJssKGzhFHOduV7fKEN qO4l6AxYfVoU2 QXkbW4SsydW2XFWbuILlM XMceTCPgB4izkwya8frtq zyPpQbGLIsKBh1CXq3AQZ saWduOiBsZWZ0 IvT8CGM0fQVxsM5ubUaqq eccoF8aCqk+QmlydGggRG X2MAd9S3CyPdj3VBLhtRr iMI6zxWVnTRrv Ut3nrCktpGtwMJ9jLDZkj hnky142JbKzm0lqOPZbqP ZgVJebEWI9L59pc5G8WZE nVWDrKLJ8dOF3 fD4xxJyiasrjuBHmuQiay fNtcJytEPemGEqqW960EU IhyBhaSgBvKCu7U8IxXqq 4UBMicYhjUB0g gPGrPLhyTs6arWlmySuoS S9jIBCeppxwv453WvLyu0 giBYBqdBGaAOlxSYI4X48 ua8N8UNHcXCHd HBK1kTY4eY6ebViefnlwe GVmdDsgdmVydGljYWwtYW pcZ203QNAwcGbcXmVivDv 5F8OjFnw9OKJa cMmlEV1pzDUhTOnaAs1sf QzjkRhoFE2vMNMlnnikz9 98MqDaq8afDRKwlNUbXVi sJDP1S95gc0T5 MTLfUDEjWOR9lDN6rD4hg GlnbjogbGVmdDsgdmVydG pdADbmRTtdB863HYAckGr nPlBhdGllbnQg PJhcADy4M3ZhRsocnFA+P W58DCIcRJ82sCCzyNJwr1 gjvCu9UkQvGTVfRTL8fBc gAQxuo6QxQCQe X53ivWPan5H2EYHodWbfo UPnOtHkvVT0iE3uJNxxbq rod6hrgohqRwjlu8xcsg1 4fB33V25oEYqh ZHRoPSIzMCUiIHZhbGlnb d2ltB3gKa5+XEGgbEK9xB K9nE2zLTHqVeE0MPqcI58 9InRvcCIvPjxj k7bkk3iukMq4AcX5ODQah vOulTcyYMD3o0VeHq06B7 9sIHdpZHRoPSIyMCUiIHZ icLizxm3mkJ7b Ii8+VAPcgPT0hBI5tM7fQ wYrUwE6UTvcO257DuXkxR RpUbnjQ98cN6QwvYB+PHR oIkc6AUVbgYgc UI6blHXmORiiYk8kWNX5T sUvTdRxICkmT4MxVZKbpt xbqgyisOX7STXnHEBkcI0 0Hz8quOjaISVy bGYMtA5wjshgp5qezbcqS aYtDWYvZHi4OAb0CZTppE jdHnFqFCN3JmJ1WOV4bRM gjS9loYizypfo gU5oU0UoTSFqnwitMq58d H0qHqTaNuT8KFmpAtv+TU FSVElOLCBFTElaQUJFVEg kQW9OXM04LT92 qXLyb9Q8bOL1W5AfTJFdb xwhkiinxII0YDIqOKRgiJ 87xNFlPFwlMg1dk9K2i01 1VYDqFDHxbF37 Ot4kfApcQOAbcWMMhG4ry hxhl3kzszqvRqByMVVhVM a5JJf4ZBKxeKcyZgBuAGO 7YcE7GPA1dMQt hG3xwAakibfcjZ5cDyt+M BzcQGLfNCn7JGfyjCK+PH KiJEG2mWlnPOggYYFclG5 jSEBxM5p9CjCc PhT2NTdqE0GqVDAbliloS j58fX8nOkAuCpV1RTfyJ0 KxoqR0CXDvnZFkFPjhWZV 0P27ba8K4VGTd GOTdZVA6uKY4fQ5qnAvjd jogbGVmdDsgdmVydGljYW hyDKumR916GGBzdInjLhP qSFawCZXeFP44 DP90xCPjv4F6pGE7L8WrM BUmjuvwzlzfuWJ1LAZxBS JznJ29aOWyAWzyOl0im1D 9n006GISdKRMz kF40Rg7zwWccRFBxwLOVw H9gllglu8lybrjjLfLnOI QbSFu5YRe5MIRvzKsvAnJ zDVN2LiJ1EDT5 hDMfvN9xlMzimimzhH7eM yc+EjEYQFkCNN16MR93gM Jsx4F6oMI4J4BcUIAyfhc sbbiuqPC0MEPb FCWdxT41wYYaPEbyVy8eo 5B8w431YRLlIKJlfY33Gu 3psWcyAXBqvRUCnO6xxos ho8dlwpuvVxSi PXKxSDh3KAh0ZEBevYpjM hHoSIP8BuX1UIP1pUYnuE 2luTihsarrxU4qZdb+T1A 0C7UoXoyxyWB+ PL89EPMiLI30wDGlnLEsg 6gafXj5LwEqQCWxXYR2wW qlACjdj7ZsXGXvK72deXQ rg3F1SVVgpZnm rEEbQfJedPZ6dF7lSDnpr xumv0uganrjDmjgk3iliq 30dD05U77gDNocEDYeVBB zMCUiIHZhbGln yg5fuP6pKp6+DGKjaGD5d PR3qV4kRgFiDuD3WIsoD5 06FoQxjUOpDcoay3uic5j riMv6MgEvLUZp beGyrZvcVCT9m2YaPj35V 29sIHdpZHRoPSIyMCUiIH IcuLyvoj7ewC7eHe0+PC9 pe7owog86zQ91 dHI+TOKnWBZ9hLjrQPpiR ELefT3gZWcvMtM9PDFhWp WkqN79eMTvATnnPd7ldMz jjCpnIW5rFRDb etdsi738MwUqx8pnUUYai HBwNTvnUBB0W58gj5U1JS MmKZGrCQR0aRS6wY5juRr nbjogbGVmdDsg ynVnkXrbVOkmDCxoU369U CNzcGtbTkVmjDIoP6sder XEZJ9kByfviGG+PHRkIHN 0eWxlPSdwYWRk qV8vNEOvO7r3XiLxMsL2P TpyL0RmbqO8NRDryLSdVG AvcDRIaY1suyoro4bvroh gIzAwMDAwMDt0 AOr0UXJrjYvlFcLeJUB4D rJ5WEY3fCOslV7drDikdb bwrE6lKlo+RklOOjwvdGQ +PTExCTP3hWyx USicIZQhuS2gLINdY0s7Q jTxAiP3VZdxN8PszdE9HZ StsABdXLIzyIMTqU0awxa ok5vgqfqvSuRt WLHeYGz3OJl1OQQckGhbC iWqFMX1JeG1PZC9vDDjqF 5drZebwjsmpP7uEln+TVJ OOjwvdGQ+PHRk LCZ7aLcyXMpmNKRvtY5dB PWuB9z3IuLbVjP8UKmqW6 XiokN9WWZxxRJgFCOfsBS WmW7uhhjon5cp iausQbJeCKGbYFi2SNc2E LPvfWfgYtXnDFW1DwG1ZJ R3tZIjgI6eyIkfhwqqoE4 wOyc+LFU0XBV5 LS94BZ52P3RoOsxqfHJhy +PHRhYmxlIHdpZHRoPS vqRFHdDbLhkTgqSQ9rEq1 yZGVyLWNvbGxh cHN (more content not included)... Normal [facility] QUANTIFERON TB GOLD PLUSon 0 02-27-2023 QuantiFERON Incubation Incubation performed. Normal [facility] Comment on above: Performed By: #### Q NTTB #### [facility] [address] [place] [address] Dr. Shon Barger QuantiFERON-TB Gold Plus Negative Normal Negative [facility] Comment on above: Result Comment: No r esponse to M tuberculosis antigens detected. Infection with M tuberculosis is unlikely, but high risk individuals should be considered for additional testing (ATS/IDSA/CDC Clinical Practice Guidelines, 2017). The reference range is an Antigen minus Nil result of <0.35 IU/mL. Chemiluminescence immunoassay methodology Performed By: #### Q NTTB #### [facility] [address] [place] [address] Dr. Shon Barger HEPATITIS B SURFACE ANTIBODY , QUANTon 02-26-2023 Hepatitis B Surf AB Quant 14.2 mIU/mL Normal Immunity>9.9 [facility] Comment on above: Result Comment: Stat us of Immunity Anti-HBs Level Inconsistent with Immunity 0.0 - 9.9 Consistent with Immunity >9.9 Performed By: #### H EPBSRF #### [facility] [address] [place] [address] Dr. Shon Barger MMR IMMUNITYon 02-26-2023 Mumps Abs, IgG 156.0 AU/mL Normal Immune >10.9 [facility] Comment on above: Result Comment: Nega tive <9.0 Equivocal 9.0 - 10.9 Positive >10.9 A positive result generally indicates past exposure to Mumps virus or previous vaccination. Performed By: #### M MRIMMU #### [facility] [address] [place] [address] Dr. Shon Barger Rubella Antibodies, IgG 1.73 index Normal Immune >0.99 [facility] Comment on above: Result Comment: Non- immune <0.90 Equivocal 0.90 - 0.99 Immune >0.99 Performed By: #### M MRIMMU #### [facility] [address] [place] [address] Dr. Shon Barger Rubeola Ab, IgG 116.0 AU/mL Normal Immune >16.4 [facility] Comment on above: Result Comment: Nega tive <13.5 Equivocal 13.5 - 16.4 Positive >16.4 Presence of antibodies to Rubeola is presumptive evidence of immunity except when acute infection is suspected. Performed By: #### M MRIMMU #### [facility] [address] [place] [address] Dr. Shon Barger VARICELLA IGG ABon Varicella Zoster IgG 1057 index Normal Immune >165 [facility] Comment on above: Result Comment: Nega tive <135 Equivocal 135 - 165 Positive >165 A positive result generally indicates exposure to the pathogen or administration of specific immunoglobulins, but it is not indication of active infection or stage of disease. Performed By: #### V ARCEL #### [facility] [address] [place] [address] Dr. Shon Barger MAGR Intraoperative Recordon 01-03-2023 MAGR Intraoperative Record MAGR Intra-Op Record Summary Primary Physician: Sarabjit Blanco MD Finalized Date/Time: 01/03/23 13:44:55 Pt. Name: JELENA BINTARADHA ManriqueO.B./Sex: 1980 FEMALE Med Rec #: [id number] Physician: Sarabjit Blanco MD Financial #: [id number] Pt. Type: D Room/Bed: / Admit/Disch: 12/29/22 [...] Cox MA Role Performed Surgeon - Primary Roll Trucker Roll Trucker Time In 12/29/22 08:38:00 12/29/22 08:38:00 12/29/22 08:38:00 Time Out 12/29/22 09:05:00 12/29/22 09:05:00 12/29/22 09:05:00 Procedure Radiofrequency Radiofrequency Radiofrequency Ablation(Bilateral) Ablation(Bilateral) Ablation(Bilateral) Last Modified By: Tiffany Tyson RN, Rebecca L RN Votino, Rebecca L RN 12/31/22 09:51:06 12/31/22 09:51:06 12/31/22 09:51:06 Entry 4 Entry 5 Entry 6 Case Attendee Eveline Chen RN, Jalen Houser CST, MD Role Performed Roll Trucker Scrub Personnel Anesthesiologist of Record Time In 12/29/22 08:38:00 12/29/22 08:38:00 12/29/22 08:38:00 Time Out 12/29/22 09:05:00 12/29/22 09:05:00 12/29/22 09:05:00 Procedure Radiofrequency Radiofrequency Radiofrequency Ablation(Bilateral) Ablation(Bilateral) Ablation(Bilateral) Last Modified By: Tiffany Tyson RN, Rebecca L Keya Cannonca Fei DICKEY 12/31/22 09:51:06 12/31/22 09:51:06 12/31/22 09:51:06 Entry 7 Case Attendee Froy Ramos RT (R) ARRT Role Performed Social Media Marketing Manager Time In 12/29/22 08:38:00 Time Out 12/29/22 [...] Agents (Im.270) Povidone-Iodine Prep By Vida Figueroa QUALITY SYSTEMS ENGINEER Prep Area (Im.270) Back lower Prep Area Details Bilateral (more content not included)... [facility] Coding Summaryon 12-30-2022 Coding Summary HTMLBase 64 NjgugalkPAm1zKn+PGhlY WQ+HT4IEZKxQ10rxXUuzF 3HV1sSXI8BILGHVAYOPZ1 TRS9wnBK8EXycY2GmtpBa NkvyiUVmDS26JLv7DPT9m MeuZYguaM6loCBjH5o2Iu KrLP32qE62CUufQMQzEpC 3LjZpbjsgbWFy E9erWdLsrYFoYnh+PHRhY mxlIHdpZHRoPScxMDAlJy UxeIukRP4xRb4zXPCxCPK vbGxhcHNlOiBj z0ldWFKvZJqtAA1qoBqrW 4WetWJ5NTWui3l4Br76rT I+VGXjWEX4sZcdKNzof84 5ZeQyb8ivOBC0 kUFjTZfbUVQ1K36ke3C6C NSoVEIfKNS0dWC8hR3vwU ctjdqyX3KuqLQhLpJ2IRL 4zOAizF9lrHtx nupwqG8iCkc+H86OQZ2EF JTNRU9MTid8L9JmMzcdpD I+UH13QAPhDX65aYKfhWQ oj4jbfRx9KjOe LTJxKUA9bMzkWYmzb2KqW SGaQ93amGWns5P3IWZebQ uqlGXnQnHgoEG2dY0ePLv vyzviv7lmsqrt Ucvjb8klwi11tR92R22pU ZqtLYAlYDF7JCReAAXagN fchk1dmW3tXe8+VJeqd7v fv1frhEu3KhZe AVXbjeWreSscHTP1m7RmK a78W4DuoBxfs8AiTmt3ky 02sPHxk2T9tNH4YMhdQAR ujK8fBPsiVoF9 TWKqTmSyvM65nLQbGItaC k4cxEfpfFexIX9nPHNflg cfMBDpfQ2eJKYgjSYftTg yCD6pHXZixkuq x225KaCjJHN4KPFtkZRjD 2CowK6wRcLlNUDhABMnV0 LuaZGtGNwsX932VWhoXbS 6AUJyooOwB7Cw TSWicBdqXeT6l3Q8Sj8Fg 1YoxdizVJI4THfzBEZlLq ZzUqTdBuL6P3MrXts0KFK hgPppII4dF7Gr RHOjzphyhdnefWP2XHWhJ PCsrM77iDWdZPwpPu6ll3 Z9z128NPRnGWJykI28Pl9 udDogMTBwdCBU pT1okmiso1uclgusLsJbJ VHpFBo5QSu6BOYibImxVp MxQHA8QnL4WEF1uHOmaU3 jrWquxazmcN2e Oyc+H27duM7aFXT8BUO0l zmsQKKivsUyLQ77PU40M3 RyPjwvdGFibGU+PGRpdiB hlBhoAZ5hJrJy s3iha4QhLVmeS1ShEFZaW MghTgh7YDFpCER8kTS8iS 2bWLIhYUseh4Z4cLH3I1W yucDroj9el9mz WWAwCOrtS93hhECxj3Z9T JVyoOJ4DXNhpZflSaZmaF 93Oyc+GLLtzJfdx7TqPoo ox6ytz5dttHp2 VlFjDTCqlxEdfGuoNTT5s 4BsIw59P20oMCaxIKYoKU EtMNWiQJGxyKhjao5eeI5 wIi8+PGNvbCB3 wCR2aG7mABShWxQ7NSffJ 036OtXklKYcBoprw2nug1 bcqBw9SiDyTCMfrsFbtYa bWAF8k5SjVu90 Z05xWWrsNWDiJVRpKGIaY WFpzYruwz4goO7bBt1+PC 1xz0gjpk95xN94cDG+PHR tFCR6sEwyAZew AEOamY6rJPocAjC2JEEmW bNoxZ11kPHuSTguVq7ogD kqsDzhWC7kQUMberftb20 6ToJwm7huRVJk gLUrURjoXOH5X35xc9I4Q IXwYFVmILD4qUF2xP1ypG lnbjogbGVmdDsgdmVydGl dWPwgKQhlJ014 IHRvcDsnPlBhdGllbnQgT fLzBYa9K7JhRdn5AWCfbE seBE5qlHLkJZhrFd8meDm msXivWR8oKMBy mmncp167YlTxq2ulMZWqf ESfNUacIEF1R52ci2R3LH SpVIHmKFR0jDZ2dH8ooOi nbjogbGVmdDsg qsYaePpsCLbwPRnbI877U HRvcDsnPkJpcnRoIERhdG H4VQ35UH65dPMkt9T0ePF 7Y4AsEMCgrffj wjeirYP7PNJmOUHohO04M f3iwZgmEx2oBNIaYED8QV QmqSYjX0MlgX5mTpXhRIG zTUYaZ4AtqMCj ANuvM979SLeaEyU6EXZay wYcN5JsTYJfnCgzIbH8e3 A0Ne6NK5I8GQ63YD38pQK dn4H3nGL2C6Kc KFFovvnlwzxilBA9EHEiF XQspW84Lr8scUiwIg4eWG PwMKI5GROnmHDhX4UzsQ7 yOiAjMDAwMDAw O6UkxWNbBTlaS781TNujI gG4QOSxqdIdK7ZsOPJcuF mkFhI8k2W3Lw8TFEn9SF5 0OZ49rKVkr6E2 lVP3K5AsPTXgbvgiyrrgk BN4YDTmNCAlhZ74Nw5xdC phDq2iJQWyAFB6ZTYyeJF qG2IqqY9zCyRc GLYzGLUxQ7NruAQsDSsnP 645ONgaPtN2VBPdekHzP0 QwLKVxcRhjFiS2b9Z7Tk2 NTJOjUS80MPO8 iHO8MF09FX96R5DxMzelp GFibGU+PHRhYmxlIHdpZH RoPScxMDAlJyBzdHlsZT0 kLm8oADXqBCEu nTzdzPHpYfDaj1hlZLXuJ TxeFA4rzQqgP4XmkZB1EH Dnc7r1Iq66M76yT0AbkBI +JCIfoON0yKI7 fS9kWaXcEuA8UOygE081S vOzsLEvImjse0mao2okmT l2BqD9EMFzzrAwcLtkKOR 1n3IzDl29H54r IHdpZHRoPSIxNSUiIHZhb Sssqy4ifU2lCo6+PGNvbC F5zGV0gI6gXbFjGyG0UPg aT757OhXizNDy Jkxjd3qvk2tvvSd2MaFiY FXhtpFrlUngJBI0u6UlMg 06D0SamRywb5IvQsa2eq6 2iEZld7Q8kYK8 D0KrUZMfbnrmoASlfNmmP C5wYGGzugmjLWYvlZ9xSN GcK9r4GzWmNaF6NRqlK7M eppE5UIOlfLFt UFvcNYZ0S23uk7S2IKOpH TEqJSN9rUQ5dF0cqJvcnp ogbGVmdDsgdmVydGljYWw fFZodV281IBFq vSacSFIpmH1mAFKekKFoo BofVI7uZPSpxzfoMr5CKd RJTiwgRUxJWkFCRVRIIEF OTjwvdGQ+PHRk LYF1zHhxUDqsXURecH0pO XAcA5l0ZoWiZxM3TPmpT6 YlZPTzfiaeIj75cT3hHlP xIkC7PZvlZ0Ez flH0TODewLKbCQstMWK5B 81rz3G0HFOnRTHyKET1gZ L3xK0laCpsxmlcpEKjzQb gdmVydGljYWwt OBrnD652HWVxqXeqIgQ5P hKdJxK9JJL1L3CoLls2AS WlgTfvMA9jqJQzHEriKo1 epCohlAwpMY1v RVCvchlvIBKihP1dSDRmw INkbYpcKB1rSLAnrwuex8 99VuWiLTC0BNObbHQpL2H mhA8qNvHaSFOr XUGpQ3YlbPZhTKxtU777H ImgTwQ2HFCryuYfX5PeBA RooJmoRlS1s5N4Gz04UbF ZZWFyczwvdGQ+ ZIKdYYD4qYblEVisUATdb W0uMEBcM0n7GwUgKuH3MS bfU5JvCOYwludaKd51iM4 vKbRnSbD8BQhj A4NzcjL9ANPdxEXoXCbvG KR4C91cs8Z3WMWbUFTuVO T7wUB4tM4qzYtfkbhrmTW mdDsgdmVydGlj NFsiQNatO273NIFcgUulW kZFTUFMRTwvdGQ+PHRkIH J8vIvcFRvlKDUllV0rMPT zJ8v2CrIqNhS9 SAaiD6RnTKIgehupHa76d T6rFiGpAmS3BHdgD5Njoo K7PZNmsNPfXEhmGTS3N06 os4Z6PUJaFWJs CLT3xFX5bR6ylTsdmdtwj GVmdDsgdmVydGljYWwtYW djI597WCWrgMgpCcFtfFE WvROqMTH6RD71 RJ98Y7YgTtgwkDSawZT+P HRhYmxlIHdpZHRoPScxMD TuNiIlkHsiBK2oZk8jLMN yLWNvbGxhcHNl WoNmm3tcKCLcPHvtED7jy WtpV0BekWE8RQEos5r5Cc 61U49uK1WgtBA+PGNvbCB 6zSG2xU6eLoUo QvP4XJhhX234AfOynHInP ezoe7zfj0avxGd4YeQgGC SrdyWmwTazXEO0d3WbKv1 7N89lRNumCWBj JVXcJCCkQSGnhEcolb5nd G9wIi8+RMBheBT9mDZ7oT 0wVdSdOqI1XPsgJ714UcA udZUsWvppG81a Z0JueAO+GYUlFmw4IRHba QjmOQ4bfSKlAYtxTn5qWO C9RuIkQpWyHHtlY1IcOQJ pbmctcmlnaHQ6 EHZoREPczE28Ev7kiLilM a7nASZhJCE7WOVqnMMlF6 EagC1qPxBrRFOpDNQiN9W efKShHVurH693 OXjeVqH4WSXzxnPoC5SuH MFyjPkuXtZ9q1U7Qe0OeO gvzWVjXP7oFqGyBUn6K4X vWvq7UERczAjv CW6krEDaPMvcQn4pyRigf CluFS6xPJWiarxfj833Iw Icy2soJWLdbTYsPCbhKIQ 0A82ru9F1ULWf NAZjQBQ9pIE5tS8kmCxrt jogbGVmdDsgdmVydGljYW viPDjfW870BEKwxBraQrJ UDju6V3AfTsq4 CGTnqTtkUX6ikGJfEWkhI l0ygRwdzBxfTQ0dYWMbjd saf978FwOjm2bdNLLseDI aXHhzWVO0O96x f5C7JWZjVGFnYLB7aGW8h U7wdKijitultSHheZipoe LwmLwnDRsgCCbaK040ACX rrOsjNv1SBvs6 P8DlVkv5LDNzfPfrZF0kw DSoVFomYd2atAdcoTvlKJ 1fXKNoqvcdp158IyDgj3y kIDEwcHQgVGlt TSY2A63zi0E7KIMzHUUuZ MY2iUF2xX7siGtmdlhgdQ VmdDsgdmVydGljYWwtYWx yU218AFUhzXtb PlBheWVyOjwvdGQ+PC90c p79L8BjSxujRnz5ZIJaEQ D8xMH5oJ8qHMZuOMpew0W 6eME1H8BiqmPj ci1 (more content not included)... [facility] Consent Formson 12-30-2022 Consent Forms [id number] .[id number] [facility] Anesthesia Noteon 12-29-2022 Anesthesia Note Patient: [...] on: 12/29/2022 09:33 EDT] Jalen Hagan MD [facility] Anesthesia Note Patient: BINTA GRAVES Age: [...] All Problems Lumbar spondylosis / SNOMED CT 606241006 / Confirmed Anterolisthesis of lumbosacral spine / SNOMED CT 904841569 / Confirmed Histories Family History: No family history items have been selected or recorded. Procedure history: Facet joint nerve block ([id number]) on 12/15/2022 at 42 Years. Comments: 12/15/2022 [...] 29 07:50) Resp Rate 18 br/min (DEC 29:) SBP H 143 mmHg (DEC 29:) DBP H 92 mmHg (DEC 29:50) Weight 117.10 kg (DEC 29:50) Height 172.72 cm (DEC 29:50) General: Alert and oriented, No acute distress. Airway: Mallampati classification: I (soft palate, fauces, uvula, pillars visible). Mouth: Within normal limits. Respiratory: Respirations are non-labored. Cardiovascular: Normal rate, Regular rhythm. Neurologic: Alert, Oriented. Review / Management Laboratory Results Plan [place] [employer]#( A) physical status classification: Class II. Anesthetic Preoperative Plan Anesthesia: Monitored anesthesia care. Anesthetic plan, risks, benefits, and alternatives discussed with the patient and/or family. Patient verbalized understanding. Informed consent was given. Consent was signed by the patient. [Electronically Signed on: 12/29/2022 08:45 EDT] Jalen Hagan MD [Verified on: 12/29/2022 08:45 EDT] Jalen Hagan MD [facility] Inpatient Patient Summaryon 12-29-2022 Inpatient Patient Summary [address] [address] Patient Discharge Instructions Name: BINTA GRAVES : 1980 Patient Address: [address] [place] [address] Primary Care Provider: Name: JEROD DELEON After you are discharged if you find you have any questions, please, call [phone] ext [phone] to speak to a nurse. Discharge Diagnosis: Anterolisthesis of lumbosacral spine; Lumbar spondylosis Prescription Information: If you have been given a prescription for narcotics, seek immediate medical attention if you have any difficulty breathing or any sudden status changes such as confusion and sleepiness. If you or anyone you know is experiencing suicidal thoughts, mental health, alcohol and/or drug addiction problems; contact the [facility] 25/04 Crisis Hotline -Bsxd 3PNUP vw [phone]. If you received any narcotics, sedation, or [...] business decisions or sign any legal documents [facility] would like to thank you for allowing [...] for Disease Control and Prevention [facility]-29-[facility] Preoperative Record [facility] Pre-Op Record Summary Primary Physician: Sarabjit Blanco MD Finalized Date/Time: 12/29/22 09:18:18 Pt. Name: BINTA GRAVES/Sex: 1980 FEMALE Med Rec #: [id number] Physician: Sarabjit Blanco MD Financial #: [id number] Pt. Type: D Room/Bed: / Admit/Disch: 12/29/22 [...] Signed By: Namita Roman RN 12/29/22 09:18 [facility] Operative Report - Surgeon/P reagan 12-29-2022 Operative [...] on: 12/29/2022 09:03 EDT] Sarabjit Blanco MD [facility] Patient Handouton 12-29-2022 Patient Handout [facility] Test Urine 1on U Preg Negative [facility] Comment on above: Performed By: #### [id number] ####[facility] (DEFAULT)[address] [place] [id number] U Preg Internal Control Pass [facility] Comment on above: Performed By: #### [id number] ####[facility] (DEFAULT)[address] [place] [id number] Progress Note - Provideron 0 12-23-2022 Progress Note - Provider [id number] .[id number] [facility] Progress Note-Physicianon Progress Note-Physician DATE OF [...] to proceed. Sarabjit Blanco M.D. JOB #: [id number] [Electronically Signed on: 12/27/2022 09:06 EDT] Sarabjit Blanco MD [Verified on: 12/27/2022 09:06 EDT] Sarabjit Blanco MD [Transcribed on: 12/23/2022 09:18 EDT] [facility] Coding Summaryon 12-16-2022 Coding Summary HTMLBase 64 NgjwcedvEDi9rJo+PGhlY WQ+OZ3YCHFjK21roTWtgP 7JT2oXNJ5XXHXAWASVPM9 ZVH1viQV9KKbtD2JaitJy PwespXOkPM04MDj3AXK6a IstQJutfN3blULpG2i4Kt KbAS18nL16QWilPJHtOuR 3LjZpbjsgbWFy A3cnPhDgnZFfNku+PHRhY mxlIHdpZHRoPScxMDAlJy VglInaJO6hLf3yWODiNMV vbGxhcHNlOiBj v8sqPMVeQQucBC5ptWheT 3LshLQ9CBQgy0l1Jt86tK I+YZLuPFU1cSbbYByjn47 0DmSxg8vuLVG8 wHVgHZozPLQ7H97ob1M4H EUnSJSqBNB6dKY2rN8bvH yssjutE9TjnBAvZyV4RJS 7lEOnkH6poIsk hrslhK4cPdl+A34GOF0CL XOFBV4MYui8Y0AoJusewA I+GO16OWSfRN28xRXtdNS vm6wflSg7LzCw ZXKrAPN4xWpqHNjdu0TmH YZuK85azCDir6X9HNPcuT qhfYHwDvDsbSD5nB1uPOt afpyab5dsvxso Tzkrq8fwhs74jQ17J86zV PteTNWrTRU5TMImHUVqbP hrgr2jgU8cSu1+IMzbb7d pa0dceXt6XuMe RABryuEsoVoqCWE5h8WvA t45C4LymCjsh3WbZcz3ap 06jOWhg5Y9jHT7BPqqTYV fpG7sLHhwJrX2 IXTvUiPfyV16zHOjCHccB i1mcZrkyBthFH5hOTPdcm ejKPFbfU5hKVLzcGAgxOj gJJ7iRKCgbztz y458HpVeDPN4YNBwxUUvI 9UskP3sVzNxPQCdCTQjA7 XneEJnNJvsV129GZjqQoP 0WKFrfqTgX0Sx KTOevUuhYxQ3q9S8Va2Il 5OzqgfoLVO5FKuxCRKnXo O7VxEyPaY2R9EnZsb9GVU faPpmWY2eI4Tt MSIuizbnkotseYC9UVMrP CXcgM04hNPmHSjnHt9lu6 F1y754HMCaMXFedY02Yk6 udDogMTBwdCBU oQ6olnyrf2wyegknLxJjE WBaWOk9QUx5OVQbmGhdRl OlRKZ6MwL2TUV4kWGrwJ5 qiZlqbjdxeE1c Oyc+H98ijU0dCAD6XZY2h rwdMMAekkYzUR53JQ69Q3 RyPjwvdGFibGU+PGRpdiB huOdyUE9oQhDt n8aqf0EcZKyhZ3NeRXZzE QgvGmi7MKWmFKN3rGM5cB 9lXUPkKDirr7C4xLQ2E6L wjeOwtu0hu8jx NVQoQKdgP36goPUca6M8T EGilPV6CQKpmOtfEiEwhN 93Oyc+HURtzLpfw9JdAgb lw5esd9hdhZg1 WjHdZMOudiFatGrkOFA3i 6LoNw04Y90qLZxoEJVoGA EnHUTeWTYieYqizz8aeO7 wIi8+PGNvbCB3 jYJ4hL8pJVToRqP0MGloA 273ZdModRThBfmeh2oyw3 vleMk0ZlLnTUHxpuNqaWm mNHF1y4BkXx72 X26pXRwmIVBvNLWfZJOgC HToiBhusg4asQ5wUy9+PC 0ot1yrij05bO23wEH+PHR fEAF9wVtnYLaz OWNopD7zEPxyUaD8TZXsE kSomB23bCDaXDjhTq5orZ szkNqgOM7tISYzvultq04 9LuDsv6vpHVHp kAXfVBijZGS2P25mk9K6R TOiJAFjWMR2yNA6pI1zeX lnbjogbGVmdDsgdmVydGl oEPtnPKjnR381 IHRvcDsnPlBhdGllbnQgT wZcRHp5M7IrRlv6XTPtyB wmTP2xbXKeVSlvBv7wtKu zvXrbYY6rIBKy ffxkm924IjFzx1flXYLms LSnDJrnZDR2U72ga5T0AU TdGCOlRTM1cCB9pW1kaUh nbjogbGVmdDsg vsKcqQieCFknQJcsU492D HRvcDsnPkJpcnRoIERhdG U7JT74AU97sYZuq2U7qXG 6Q2OaRFQzjvjt yujvsPQ2JIAsYZHjmE49S z7kiYuaYl5xYVLtQMH7LM VagZVaV8ZtxH4xJzScEUQ wAWTyL5VnfGXe DPdjF948MJkzPdQ8XEPtf aTgQ5RwCUEmwNcwQyE4x1 Z1Zt9YB0H0UF15XB96wWW en0V0wGF7W0Xr HPAstviyvcvopIO9ADBwO TAyvN97Oh5ayJauCr5vWH YtIMR1UZCkiUPaO0XvxZ6 yOiAjMDAwMDAw I2OlkGPzRIfmM907UFqjJ fU3RHItliRsX5FfYMMxbP rrDnC2q1A9Hg6ZCEl0YN3 2BA78zPTzp6U7 cJE1M8NlDHQpxhlaclucu NS8VEPxWGPrlL70Tz6riM eyQn8mLWRfYGN2CVNbrKW cD1HhjX0kVvHk NVEtJBEwE9YrbORyWKdiW 130IOaeLfG7EIAzcuEsV4 BeVHWibRboGfP9r0Y7Tm2 JYMGjEI88JHZ6 dMU6GH94PM92D1ScKetad GFibGU+PHRhYmxlIHdpZH RoPScxMDAlJyBzdHlsZT0 rNh4nEOFbFPCt oRsumHYsCuOek7fzSKYmY GrlXX1qaJipS7FscTJ7QX Htc3q2Gp91F48fK2ZuiWE +MUNrlWM3xEA7 xC9xHbFeMsZ2SExzL121D sSlbZFkQjpux3let7nrhG z6KzD8KEBeilRbvXkzJPA 3t1OhCs37A38l IHdpZHRoPSIxNSUiIHZhb Buzbe1laS7jRp1+PGNvbC D8cTO4zT8fEnXjUjL5AOk jP950EbNnfXFr Wkoae3mms2gngDm1XkPnX TNjxuGskDgzQOT9a7XhFj 03X0CtqQmog0BgHjz5bg1 7pDPvk6D3bHT6 A7ChJSEpzacumIObyRbmC T6zIBFokpunFMGydN3gMT OmU5o5UuMlZlZ2KTgpZ3P steV2IGYozPBa EKmyPJC6K28fb6Q2BFOrO HTvMBE9qWR6oZ8ieIndnv ogbGVmdDsgdmVydGljYWw uYPmeM789TMZs iGewWKSgmH0kFGAejZGod HipXQ8wYMHrmbmcYd3WQj RJTiwgRUxJWkFCRVRIIEF OTjwvdGQ+PHRk ZBO2yBggWGuzSOAqxD0mA NTnQ6h8LxHdJmS3ZHghZ8 JvWYErpnajYu57oP8pXpY yDrJ0XJelR9Ir pwZ9GIPyuDZlXZauOVQ9G 60xe3G2KMDlZFSmBBB6mZ S3rY6tlEibfdbmwFIfrKa gdmVydGljYWwt IQndN402UPYyjYevUlK7Z hFlTtU2DPZ3X4RoBoj3BH MjtJieRU2znVUrRYexLc1 tnQmvuQssRX8b JAKtphziBBVgjV2fAIHzf SLhbVamND6uEVBpmsgra3 23TwZwZLZ8WIDsjXAeG2I ygH6qAwRkLLZh RMWrY4NvyJRoYWxqR853V DumMeP5QBLbyzZmE3VwPS BqrLoiLrH8b3H6Gd77UzC ZZWFyczwvdGQ+ ZOXoDKS3fKdwSYfrDWZbm N9yWZBjU2y9XlNrBqA5RO frS0WvHZZjfstsBt17rJ0 vLlHjTuY1PClw N8QkydG3UCPgpGFeMHpeN YR6Z34xp4K5TJGyNCOiZN N0cYY8fY3gxGpfaappdLQ mdDsgdmVydGlj VRcgHCovM697FDRlhWtpN kZFTUFMRTwvdGQ+PHRkIH E2pOysWRrbWNYwbW7lAMS bW4d8CaHsUfX8 HQvbN7WbAYKjrutsMf85t Q0zRnZyVgB7JJxqB1Dbhj L5KZIkfWRkBVctODR2G39 ap2A2HVThXJPl YBM0xBB6qN1cxMaisfzvp GVmdDsgdmVydGljYWwtYW pzV576RAXrkQyqEbKhpHX UqCNwPST5EA99 GK91C6ZyVkbawNVtaOT+P HRhYmxlIHdpZHRoPScxMD AfRgAsnXsfIX7bAy2cFGD yLWNvbGxhcHNl RtYgj1raYJIyZMpiHS6fs JaeR8TxjVZ5ZKTcp6d9Jh 11R00sF2GpiKW+PGNvbCB 1cNF1fT8vNrXx QaD7CPmcL685UwYtgJJoQ aqay4bdx8ginDz7KpPkEK XnhqMigGbgDZU0f9ViJj5 3W59vAEkoBMFw KWArVYSmTTKcuXkjvx5qf G9wIi8+FNIdeBS2aJT7xC 7tTrEpOnC4ZEswU564TpQ dyXUmNbnlK48w D6MgmDN+BJXhMym9GAInw NdwCR3jsIAwLLucNm5eEW A9JwTqXzWtOHswW1TnQIR pbmctcmlnaHQ6 QEXpIDVoeK38Eh2rzEinH i2wWTGpTYS9SNEdeOYhK9 NlrH8qDdMwJSQiEWSkX6F uuRYdVMdwD128 LSdrGbC0UNOqoyLgY8JsR AHrkGirLhD6b5Z7Ty4ErR ocuMPwIU3gNnXvISt5B1L rLks6ZWHetDfw WO7jzTUeUCrqAa3syYwki KtsWK5bLSApliksk712Rl Mpj1ozMDWseVFxKSamYAQ 1P13sz3K7ENQm FXQfMCW4xSM5cC2axXcvu jogbGVmdDsgdmVydGljYW jiDVikW869PCWloDraNcF AVyb5J2ReLtv5 RAOhjBunIM1eqWZfXKyvC k2vaCatjPpaPG3iOFSnlv frg956OfWqu5qoEEXvtME pOHvhUPR1X75t z1R3PJWrJFCmNNT8mDS9y V9veLtvomhrfODcuLoemt DrqOniPKctCOakX787XKX sqXrvXh3KPmg0 X5LtWco0NPHzePckNW2mk DFtEVpgNe3hkEmnzMgxFO 5jNHTcgimzq723BjQjt9w kIDEwcHQgVGlt SMB3G24um8E8ZRHmDEFrZ CF1pAX8kV1drVruxahujO VmdDsgdmVydGljYWwtYWx sA474CHQgdMqm PlBheWVyOjwvdGQ+PC90c h82B3GbAgmrBbj2YSXwCJ L3pNA3hM3kYDPhSPstl5K 1pIA1A3OgsvJz ci1 (more content not included)... [facility] Consent Formson 12-16-2022 Consent Forms [id number] 3 [id number] [facility] Inpatient Patient Summaryon 12-15-2022 [place] [address] Patient Discharge Instructions Name: BINTA GRAVES : 1980 Patient Address: [address] [place] [address] Primary Care Provider: Name: JEROD DELEON After you are discharged if you find you have any questions, please, call [phone] ext [phone] to speak to a nurse. Discharge Diagnosis: Anterolisthesis of lumbosacral spine; Lumbar spondylosis Prescription Information: If you have been given a prescription for narcotics, seek immediate medical attention if you have any difficulty breathing or any sudden status changes such as confusion and sleepiness. If you or anyone you know is experiencing suicidal thoughts, mental health, alcohol and/or drug addiction problems; contact the [facility] 25/04 Crisis Hotline -Text 4HMCB zp [phone]. If you received any narcotics, sedation, or [...] business decisions or sign any legal documents [facility] would like to thank you for allowing [...] these instructions at home: Medicines ? Take koaf-szj-gwysmyg and prescription medicines only as told by [...] by your h (more content not included)... Normal [facility] MAGR Intraoperative Recordon 12-15-2022 [facility] Intraoperative Record MAGR Intra-Op Record Summary Primary Physician: Sarabjit Blanco MD Finalized Date/Time: 12/15/22 09:41:51 Pt. Name: BINTA GRAVES/Sex: 1980 FEMALE Med Rec #: [id number] Physician: Sarabjit Blanco MD Financial #: [id number] Pt. Type: D Room/Bed: / Admit/Disch: 12/15/22 [...] Attendee Sarabjit Blanco MD, RN, Kathleen A Morgan, Gail MA Role Performed Surgeon - Primary Roll Trucker Roll Trucker Time In 12/15/22 09:17:00 12/15/22 09:17:00 12/15/22 [...] Luke T RT (R) ARRT Role Performed Roll Trucker Scrub Personnel Social Media Marketing Manager Time In 12/15/22 09:17:00 12/15/22 09:17:00 12/15/22 [...] Agents (Im.270) Povidone-Iodine Prep By Vida Figueroa QUALITY SYSTEMS ENGINEER Prep Area (Im.270) Back Prep Area Details Bilateral Skin Prep Agent Dry Yes Without Pooling Hair Removal Syntegrity Hair Removal Methods No hair removal performed Outcome Met (O.100) Yes Last Modified By: Jacqueline Matos RN (more content not included)... [facility] MAGR Pre-Op Record Summary Primary Physician: Sarabjit Blanco MD Finalized Date/Time: 12/15/22 09:34:52 Pt. Name: BINTA GRAVES /Sex: 1980 FEMALE Med Rec #: [id number] Physician: Sarabjit Blanco MD Financial #: [id number] Pt. Type: D Room/Bed: / Admit/Disch: 12/15/22 [...] Signed By: Sharon Epstein RN 12/15/22 09:34 [facility] Operative Report - Surgeon/P reagan 12-15-2022 Operative [...] on: 12/15/2022 09:27 EDT] Sarabjit Blanco MD [facility] Patient Handouton 12-15-2022 Patient Handout Orthopedics [...] these instructions at home: Medicines ? Take vxch-lmk-zzzvpbh and prescription medicines only as told by [...] sugar if you have diabetes. ? Take jfdm-jjd-cktmmwq and prescription medicines only as told by [...] provider. Document Revised: 06/11/2020 Document Reviewed: 08/27/2019 [employer] Patient Education ? 2021 [employer] [facility] Test Urine 1on U Preg Negative [facility] Comment on above: Performed By: #### [id number] ####[facility] (DEFAULT)[address] [place] [id number] U Preg Internal Control Pass [facility] Comment on above: Performed By: #### 3 [id number] ####[facility] (DEFAULT)[address] [place] [id number] Coding Summaryon 12-06-2022 [facility] LoruxpmqMJs3iEq+PGhlY WQ+FQ3YLZLnZ49dzXYqcP 5MZ0rWQG0CRLFGNBRNGK1 RIO0ftZG3BQxcT2GzbcEu BndwwXDtQW58JGf7UPS9t LfsKUpbxO8rwUOgK0i9Hj EvGQ14uC31LMbzRKImZaT 3LjZpbjsgbWFy F8tgHfRwkSQbWja+PHRhY mxlIHdpZHRoPScxMDAlJy SbtGtcSU7gQi8oGWYtGRN vbGxhcHNlOiBj r7qtLZKfCZbvTM0qpMfmS 3BmwTL7GAOti6b9Xk65rL I+ZHYrUYC6dZqvUQhbf59 6LeXjm4xcXDY2 oPWxFUavTDL7A61xa9Z1J FXjBDVyFIE2zNV9iA2dnW sqegqaA9QhaWTuNpK6SQZ 3mHTitK4spFyu wzhskB6vSwb+Q24ATE2NE SOEXY6LDux1E7QvPgkpgM I+TX75LNJqFL06qDGqnUD ek1wluGx0ShAc NLOoUYC8iNnsACuxx5QwV GNrC49cgILue3R7WWUapT smwGClGaShsOR6aE3zHBm cwyllt3oedmou Akmjc2hzrh14sS96N46eN LusQJFiZOB7VAOuOEHowE pkhb4kfE7aJi7+WYzya4m tn2egrFh0EzPq AAMjtbQwqJbhKML9n3UvU w00V1ZouLudz1LrDzn9ho 98tVDzp2B2uPS5LGgbRFS udY1rQRddYsE3 RVPpHiNfmY03jTSlBPrjX d5imHwikCvhRB8dNPAfiw rhIAPopO5fRCDqfWFxsFy lSN9pVYRjdeeg n774DjLpXCC8WRHotGMsU 1LpgL8lTbKwQJBeVODkO4 MqlITeIDnbG636TLrsPlD 1WTMsteIhB0Ip QJWxbAipBsF1u3X5Zn3Zz 7MojyxxWJU8BZudZLNtWe O7PuLpZjP3T3OfHag4CBA nvKqjOL3qS6Ch LEQohmcyeaunoPU9PCIqH OGxfV99kQKpQRgpIq0xx2 A9z312OHVxPYLgfG81Ns2 udDogMTBwdCBU lY8abdvge4gngtcqLtLsS DTmLWq3PYg3TUUvkVthCk YfIRS0IoL1ZVL5mIUzjU1 evSiuwkihoR4q Oyc+J84coQ4dXNJ5BHC3j udtFCXwhqXuEY57XV36E7 RyPjwvdGFibGU+PGRpdiB qlGroVT7qOhDk v5esw5OnHHhqG5MnZWUjP YhdVew9LCUnJYC6xGW3rZ 7kYUFwHOmbs4I4rPA7B6B cnvDdwx0jc8di BLCaAHymZ14irKSqh7Y7Q CSphWT9HYRlvJiaJjHiiK 93Oyc+MOAtbAove5CjVci ie8kkt9genPv4 AaNwGGSnoeLbaMerZVA5l 8EdEw70X09zRDzdJSOqYM XeEHCtSZGhcEemnu9vwU1 wIi8+PGNvbCB3 gMG5iQ5pOFJgFpK4BShwK 815AkFmbWZxInocd5nzg7 rmrJz7RoBvNJCkfoUljKy mIAV3u3XhZd62 Y13nACmhACDxHZIuIZLuC USgzDzitm9jdJ8yBu4+PC 4sz2tfeq21pC20nKX+PHR pQAV8iLoaMHxt CMKsmZ0lZGhrCuA5NFIcW cZeuI75zBCuJIxvCn7jbO gdtVnyEB2nFFQftohmz22 7CxCtk4yjFCYo sYQwZOpyIWR6R45fe0L6F RNgLLJnCVI6oLX7mB9sxA lnbjogbGVmdDsgdmVydGl kCRgvIXqtV795 IHRvcDsnPlBhdGllbnQgT tDbAEh1N2MdJvy3SIJjzJ pdGQ3yaVKoQItyEd2ziYs skYkiCI6gAFQi tpefl341XcBtx0aeTOFbe LIuQQsrWEM6F01dd1A5OC AdTXLhIQS7nXJ2cD8adFc nbjogbGVmdDsg kwLhqFfdKGjfTZxiU184L HRvcDsnPkJpcnRoIERhdG N4IF53DS68eRIrk7C0pUC 4T1BsOHZmecmh lbgjuVV4NGCtJSFwhC92K a0rgCchGi5jEADrNNI6JG SlhQCqV4YsnH1mJwHaFTT lDGGiN2FqpZSd YIxdI168EMouFbB1HTHlk cScK5IsFDBfkYzeZsX6o5 A4Ag3TB0O9DJ36ZK16pDW bn1Z9oTL8G6Ek UMVnsipycxqnyWG0VIMtE PWvlX53Da5voXakLq7vJO UuRFV0YAElzUBlC1IrqQ8 yOiAjMDAwMDAw Z7TiqQNzKDgoH455CPicZ vA6IARokaTnH5XwHSLmcR dsHaB6l9P2Rp8EYSy4GY1 8LT71mKPnq7X8 iFC8M3UyQNZylnbyvmtpb WY1OHAlRCLmqD16Ay8dfY dtKf2kUXJqHOA9PCQnsNW bE0XmvL1sQpHp YSQcMSYkI9VbjSXnZJbjB 150LSmqKkH3PCYdswQiS0 LwILBwiYtxPkE1v1F0Dz2 AEDRpKI25OJX5 zPQ9IN58UG68U6JfUvksq GFibGU+PHRhYmxlIHdpZH RoPScxMDAlJyBzdHlsZT0 bNc3zGSTvUBHr kXxvxNAkNrOrp9wgWRIkY OtuZL5ikInlH9XlmOI7RP Znx9t4Ot30P03eO3DiyER +OYTocDI7dTL6 fU6fIoZmFaI3VFlqC727I qFnmIGtWkhhk2rrx8tlxY k7RbO0ZFKawdUjrOabREA 9v6DwDr92P99f IHdpZHRoPSIxNSUiIHZhb Gaaod2ctJ8fUt6+PGNvbC P6kMT9bE5zVxQeYaV7QLp fD084VhVhlBSs Zxbtu5ihe0xyoEt2WiUeM NOroxEmxXemVHS9i6CaVi 64B5DdgNolq7SzSke4xl1 1iUGny8U7hVH0 J1JiVKKnudjlpRJnjKhvV U9uPTCvclpyUZPbpB9yLX QrQ0m9AdMyMfE2PUfbY5C tquF8IJYdrYXi ODnfIIZ4Q12ah4F6OJVvI VEfULH5zIP8kG5kfWzlae ogbGVmdDsgdmVydGljYWw lRAurI333UBLp vUdpEULgeQ4wAKKazOLbv ZiwWE7oRLEangegYr6BCb RJTiwgRUxJWkFCRVRIIEF OTjwvdGQ+PHRk OHV2iXwbVGqvBMNjoT9iY BHeJ4r9WfXjCdD5TKytM7 EzCLFmajztSe08mG6rDgQ sTqX6XTcqZ3Bf qaQ7DOFouTUuICrhYYT7X 58ak5W4UJRyVVJhOOU4yX C3rS7lyMfpztlgaTIqyOs gdmVydGljYWwt OPplD992BTYerRsrIrW0S rAyVgH5ZSJ5O6WrNbw6RG ZrtOnvVB4ekTCyMAomKp3 qcHkwtBcaBS4s XYRnzqsxHVSnmN0uGVAkb USyxFciZC0tWMLynreon1 01GaFaYGW5DNLrmOItK6B caF8rGvMyOQOs QDLbP6SvrLTrFSpsH176S BjqTxJ9SQLsciVhL3UgCL UxyYblTrY6t5V5Ri43KkV ZZWFyczwvdGQ+ QRNxIUR9fCenZImyXCXgi N4aNYNeT4r0PfOlNwR9QK xaD8LhCYMdmknxMx33mV1 fKcHoWfX1EPgr Y1HhnzT5XVKalCKyXIppO BR7W37ax4Z5VDSiDBOvME P5nET6fY3xmBuqviqyqPV mdDsgdmVydGlj REhiBDrbA782RWJxmKyuP kZFTUFMRTwvdGQ+PHRkIH T2uAtrDIhuOGFotL3rOLH oQ8j1PaDqSwB2 LOqiJ3JyEOTddmplDp25m V6jAcTvYtI2BIjlC2Rzuc G9CMGgwAEpZErjMMI9Y65 qt7H5TJGeZLDy HYB1yJF9uJ1nvUkzfhvng GVmdDsgdmVydGljYWwtYW sbG225IVEbrTwiVk7UEA6 4HH62L0XkWttl dGFibGU+PHRhYmxlIHdpZ HRoPScxMDAlJyBzdHlsZT 6mLy6zGOHeIAQuxMtdoXA vWfWak0uhTVTb SSonPM6olNjwT5OtjRU2O SUis0q4Je62G27eS6FlkZ A+JPIueXO9wXT8xL2yRbC pDzP8TUleM486 DiAzoDIzBxzup8pje8tph Uc8PwWzHHZicoJyrRjjVJ Q3y8AcYy51J62sIAdvZZP oPSIyMCUiIHZh wTnion0xyQ4mPs2+PGNvb WC0pLO4tN9aKeCaEnY2WT iiI514PhLqoPCpIgsgT39 kO3KouRO+PHRy Ncs5AOJsrEgqNQ6iaQZmA VlgQo2rNGI8YjGbXyKmVJ kfG9EgRTKjghiboggluXV 8GGSnFXEoxA27 Bw4pnHfeWh7gVFRnZEH7K KBrbDRrI3PnuR1rOiFdKD QaPRAgQ1DueOLfBLqfB65 1GOvaUhX5FOLe paSkU6VnBAXrjXcpOjE6h 9Z8Il4VlOhxoPJtUL0rRx WtHCi8C1JyHne7EBAipTt dET1muVBvLPje Qh8qtZdqxSvcVO6mIZGxs bquj390LiUoy8ssTYOjtR ZcUQfmMPF8P78en2I3WCR sQSTsPSD8jXK9 nH1fyDdflphfaRTuwNppo zRxjBsjVIpxIUmsH681TL DhsCmiDjWYWke9F5PvJkz 4UJSvgGswVM6g vQOlODvsTj8ydUlzuBwrB P2gSLBrqnxon742HaIsz5 veHZCyoWNpZBmsFKZ8R84 vi0I1MFFvKLQn YGZ2fJW6cZ5mhCixqpwjb GVmdDsgdmVydGljYWwtYW ykB511FIFceKshUx6XKwa 5A2MfZjt9CVMz dLouBV7ezQTnZBhmVg4wj XwqxJatCQ3iUBCnimzvu0 61SjAtd0mcUTPmzSSvWYe qUGR2N65pk8K2 HWFrXZUbICB4mXN3zG0un GlnbjogbGVmdDsgdmVydG zgIIehTLqcU076SHOezPa nPlBheWVyOjwv dGQ+EW21xq31O0SlMqyfY av0KXNzUGN3bFC2nN0gZI JdMScle9O8eBZ8G1PoaoO fup0oa3mbVRMe ZTo (more content not included)... [facility] Progress Note - Provideron 0 12-06-2022 Progress Note - Provider [id number] [id number] [facility] Progress Note-Physicianon Progress Note-Physician DATE OF [...] to proceed. Sarabjit Blanco M.D. JOB #: [id number] [Electronically Signed on: 12/08/2022 10:52 EST] Sarabjit Blanco MD [Verified on: 12/08/2022 10:52 EST] Sarabjit Blanco MD [Transcribed on: 12/03/2022 11:25 EST] [facility] Coding Summaryon 11-22-2022 Coding Summary [employer] 64 EcpzxiyqRRg9kUl+PGhlY WQ+AI4PGHHzT63irXXubO 5IL8mDDP0THHVKHFJCAV6 RXU1uhXI6MMdpY1UjzsNe XvhxhKXnSB87SIj5LPD2v HkvUJibjQ4kmCOsL8m6Gf GpZJ64fI18FWieFTRfKfR 3LjZpbjsgbWFy D5vmOyNgsDDqDmh+PHRhY mxlIHdpZHRoPScxMDAlJy IiuDekVF8xZy9fCINySYF vbGxhcHNlOiBj y9keKDZsTIsvOH6ysSffQ 6XocNQ7VOPmm2i8Yv45hE I+IRRkSQK8fXgyYPywr35 4NwYgy7faIAF0 cHEyFAqiHKU6T73vd1H9W FJvILItUMY3tXL8rZ6vbO mznwjqL6QcmKGbIxI7RPK 6aNCpjQ5cxWtw hvpvkV0xUry+S08USL3ME ZSAJZ0YJxk4M4GvVgvybC I+TA19WPRpDE48wSXlrMD cm0ctmAc9SsMp QJHvMFF0vIwuHPsad8ObZ EZeD43xgEAfx4Q7TRVwnS tftLVcJoLniGN0rY0pNAa jkrmln3qjwkma Qxpgj6pdpi74jI23M28kM KfsHWVyFQN4LIWmPOCztR dgyp8dxP9eTp2+XSobn9y ru8hwaJn7LlOo QRLodeOeeLtwQFU1u4VlY n20J8YeiPpmz3MzQdg7xn 20wBMub1O7fHY5TOrmHWJ qpC4jXKklLvR1 UPMmWmZwdD13cBZmPXagR i7tzXjinPiaAX2iWEQgqv ftRJZqpQ3bQRXocGCmjWg mTY2dMPTpyjke j883WdNtTZN4IPGhuCIjT 5KjuU3oZuTdELAbAYKvR5 DbpRSuTHueB176DIxiDyG 6YNZkdkOwV9Di GMRsaOjjKvG0e3W5Cn5Mw 7FgcrfjJRO7WYlrAFZbNa DcRgOjVsK7Q2CjAcw9YTP xyLqgTV2wV5Et LSHdvbhhlqzclAW8PDNrK ENpgI81jEEtSUbeKm8tb8 A1o020DMCvMDFbpJ22Un5 udDogMTBwdCBU sQ9tnjlpg3zkychgGjCjV CCpXZl9JRl8BRDsgHmfFd NgGSJ7QqV3NWR4wWNrrN7 jtOfwikohmI8p Oyc+C84wmP2kTCG2XFK4w xayXONamlDlUN96GV86N8 RyPjwvdGFibGU+PGRpdiB ixDbxXI8uWoUh n0mac3FoATfzB0DfNUFnN JbgRic3YLXyEPE9aKQ5jO 2fVTSbSXmkm7N6eOP5R2K fciUprh4fm7lo CKJiCKyaM24qmVQpi4X9U IDufKO6OUVudYgxOtZqjL 93Oyc+IHDkbPgye9TwAke df8avd5fejQi9 PaPhCYYewpQabTszZKR7a 0YpDz12D39xXXlfNMDhDG OeIMCmNIKtqSeamq7pzT9 wIi8+PGNvbCB3 hJI5zZ8uIDByBgI3CLuvW 527AnJfcPUaQvgkt2wvt2 blvJq6YfZnLQTvkyPlsMw tJJC4k3SvLf39 V86bRIunYSLwNMVgQZMcZ UOkcNyinn5vyF9vTr0+PC 7hq7opzw27xV49jRR+PHR lSSR8oPjqFLqj IHZnyN1oQMirLpY2OJQkX iBgrP31mWJlEKwuBb7vlH ynwWzdXO1lXRIerckmu71 7AaSet4iqSLLp xEQlHXmmDBB4H45qb9T5Q HZeOUYfJBD6nSC7iJ6ztJ lnbjogbGVmdDsgdmVydGl yOQxqILlnO103 IHRvcDsnPlBhdGllbnQgT aVgBQx7H8JsFqj4RAZhqI ikSY9bnCZqIYbrDe2usUf llHhbED1sBIIi njpgs629JgPmj7uuXNQcw WHmQWgfNNE4F64pr9A0WJ TxBUSgRNO0aRX1nA0cwMw nbjogbGVmdDsg ilOvsKqhSMovZFilM454Q HRvcDsnPkJpcnRoIERhdG X3SR38SA58lDXyy1V4gRW 0L9ZxWNGlvkln tfxuaHD5KKNcAMBjsP54C w6otQpqHh2rOHAfJBK4BV DhoDUvI8RmzX6kNwCxJES sAOMpU2MamNEp ZNelI869GJlnPcQ5BHDia zJiG2KsZZPacHnzOdH8p4 Y5Kc6TI6I3EI09OF04mTR nn3X0vMZ8X0Ge WMWphljebusydQW0JMUqV AIkdS35Gk2usXpnIu8qCT SkWBK0CPEjcIEeF5JrzL4 yOiAjMDAwMDAw F7GqdYFbQQilM807JWgnD fX1HHUgemFxJ0JxWSZqlV rqItI8u2U3Dr0ACFu8MR4 7WB27hCKox8N1 uNX4P5JdONZyybjmstwoi OW1QVMlCSMmvH13Ak4tvM vaSa1vDBFhRAF3XKCgyIU bO3SorP2jAtRn VIQpMMDwX1QmlERzVTmhT 537AQupEeR0TVKgzbUsQ3 TuUXYeoEezIrO7t2I2Fa6 NLXUjAW68NOF4 qMD9XB96VU85W5VmWlytc GFibGU+PHRhYmxlIHdpZH RoPScxMDAlJyBzdHlsZT0 oLh9iKQLiNVYw iJuvsBGkVkIdj0psKHNaE CshNQ4rcYifX4MpqQC5YP Iog2n1La24Q94zL7FjxTO +AWJubPD2fPJ9 rP2aVbVaJcO4HPcrF656Y iOfkDPhXkibb0crk0kapM w5TmX4LLPalvVqeTnoVZW 8z3WxPq73Z78k IHdpZHRoPSIxNSUiIHZhb Tewpr5nvK8nTt5+PGNvbC C6xXO0uJ0xVpQmQeK2XXw zU259OiFdnUBq Tiaej7sat9rndLh3YfMfM VSdikEsrTttUMO8a7SlBb 25I7IlvGtfc6QiKsp4jy2 0tHRmd4H7xDV9 S6IzLXVyuzmxtOBtxVmvW E7bBRUruesjNRYdzM8pWP JmD3w9MdJcWlI9IQisD8G vijC9PUXfvSOn SYhnJJT9X96ot8V8DDIzH LRaHJG6hHD5iZ9mpFqjnp ogbGVmdDsgdmVydGljYWw oDJtiD491YYDq rHygESMdsI1lBPIyjKSxc NnlOK2iPTLedalnWc2LVf RJTiwgRUxJWkFCRVRIIEF OTjwvdGQ+PHRk BWO3qXdlAOrhCLJcrQ1lC NGrJ6t8SdZvDbG4NOmlW8 QxMOCvprnbNz58hD4rPvF uLkJ7CDfiR5Ww kkF4PLQvhMZzANbgWAU4Q 94ts1C7UVBdXKMxVNB8lW G7mW9mqRnoksngeJPtnQd gdmVydGljYWwt GArhA220GBGmqVclOqI7G kVwVyY3BMI7Z1EaIze3SR MuiKsjZN8fxNLiMVzaWk2 gjPumiQbjEQ6l YHQdejnjASZjsD2gAHLeg NKexMbbIX6sJNSfxjzgr6 73TsGkARA1QJBdfNZxH6J xaD6bLkWyAOXn OJSbD5FqzVUxZSjjE834E MqvLuL9ZZYzwxXmQ3McLG PjmXhvZiF7p3W3Rg55BwW ZZWFyczwvdGQ+ RAGlIQP0iZtyKUarDMHwq H6wALNyH9n4UbNgLrS4OA gkP5StSPWppbbnQv07vE7 mSuZzGaW7KPwt L3HbqwO8ATJgiZUgMQlhZ AF3L31cy4D7SWQaROTfRB G8bPH1nH3isMckshmvsIL mdDsgdmVydGlj JQldEOysQ702LZDeyCpfJ kZFTUFMRTwvdGQ+PHRkIH G1zSaoBPdtQXBgxA5tGBG xK1g3RbUtSnF2 BJuuY6GzIVVpzpunWa68y I0yRdYyStY6UHdxQ5Ooam J4SRXtjNPfZJoyEBK8A76 ay9R1JYMbQVXc HEZ2gSG5xB7atShsanski GVmdDsgdmVydGljYWwtYW dkX120KOHxxAkrQo2HNP9 5UF03U4KxCttl dGFibGU+PHRhYmxlIHdpZ HRoPScxMDAlJyBzdHlsZT 9uBt2tMNRkPBJmmXvfvMT qWeIfs7ojSQBr CKzcRK8ecVkhA6VoiTG3N SFmp6b8Hy40A24aU3OyvW A+RSSsdJP1zWW9gV9eAiJ aRjM2WIpiZ673 SaKooMAfSysrl7gzz4dex Gc9NcZaGBTyffEimPqrHP H3r1ArCj09E64mEGhvLUQ oPSIyMCUiIHZh lBaqds7yfQ2uDe8+PGNvb VD0mUI8iR1eEqEgGgO6VN eqX476NxVowAWdDrxtT08 hT5KocFS+PHRy Ydw9HWUuaMscAY4exESoN TtqDy4xOZP4UlJzElTnDB kuL5WtEEWxxwlupjmxhFS 2FNOqCZNxwO14 Wa6xqWjtMm1pORWsMQE9R HRpsTBiH4RyxW5sSsDgGL NtZKCvK5JggNSdVIzjL34 0TTleAkT0THIw hdThX8VuOPZejHvnXqY4g 1X0Zn4CqBjcyBAaVM5xRi XgVLd0R2WmNre9LXYbaQl dQP3jlDMqJCfm Zr6wjUmtiMxtCS1xZKZrr bnpb137ZeGuu2idAYOcwL MbZJngNXD8Z83gz1P4TGI aSFXwRBY0lCR7 oC5eoVguqsoffZAwhItdw lMhhTudUIhbVHhaT818QD UyaLkxDoBETcy1W1WjXig 1JCHdzLdfUU4g dMTjXVwmYv8czWppbMbiB K8wBQWxsqyhf713QbHcf6 qzUFMpsLWrLGhjRJF5J58 kc2H2GYUmISCt MWZ8jAH7sK3piWywhkihb GVmdDsgdmVydGljYWwtYW taE950XXCwrIdtId6IAlq 4N0CtVxh4RAMu hTtsOR4jrDFfFOjrSj8zv KatmJbpRW8tJBFxmgera4 77ExIex0gmGISejEBeVOv sKLX2A01le6Q6 YKWdOWExCTH2nCB2rT4xi GlnbjogbGVmdDsgdmVydG quANcjKAcaD750QFOvsAq nPlBheWVyOjwv dGQ+CH14zm59X1IeRuocM mp0KHOyCDT8xYO0zZ5nWH HoBYxjf3E3oNF8R0BkrbK jav3zt1enWEIa ZTo (more content not included)... Normal [facility] XR Spine Lumbosacral Complet e w/ [...] Navarro DO 11/21/22 10:49 a Technologist: GEOFF [facility] MRI LUMBAR SPINE W WO CONTRA Poncho 05-20-2020 MRI LUMBAR SPINE W WO CONTRAST [facility] Department of Radiology [address] [place] [id number] Patient Name: BINTA GRAVES : 1980 Sex: F Age: Race: White Pt. Location: Patient Status: D Ordered Date: 05/02/2020 2:00:00 PM Completed Date: 05/20/2020 02:21 PM Requesting Provider: ZAYDA FRAZIER Attending Provider: ZAYDA FRAZIER Report Copy To: Signs & Symptoms: M54.16 Radiculopathy, lumbar region I10 History: Cayla Comments: , Recent lumbar surgery, postop numbness left perineum and left leg, evaluate for nerve compression. , Recent lumbar surgery, postop numbness left perineum and left leg, evaluate for nerve compression. , , , Ordering Provider - A FREDDIE CLAROS PERFORMING [employer] MANAGER , Exam: MRI LUMBAR SPINE W WO [...] process. Approved by:Rosita Nixon05/20/2020 2:55 PM. I, Yamileth Barragan,have reviewed the images and reports Electronically signed: Yamileth Barragan. Transcribed by: [email or web address], User Resident: ROSITA NIX Electronically Signed by: YAMILETH BARRAGAN @ 05/27/2020 12:36 PM I personally read this/these film(s) with this resident Normal The [facility] Comment on above: Order Comment: The A ptima SARS-CoV-2 assay is a nucleic acid amplification test intended for the qualitative detection of RNA from SARS-CoV-2 isolated and purified from nasopharyngeal (RAILROAD SUPERVISOR [employer] ENGINES), nasal and oropharyngeal (OP) swab specimens from patients with signs and symptoms of infection who are suspected of COVID-19. Results are for the identification of SARS-CoV-2 RNA. The SARS-CoV-2 RNA is generally detectable in nasopharyngeal and oropharyngeal swabs during the acute phase of infection. The Aptima SARS-CoV-2 Assay on the apta.me and apta.me Fusion system is intended for use by laboratory personnel specifically instructed and trained in the operation of the [employer] and [employer] Fusion system. The Aptima SARS-CoV-2 assay is [...] Reporton 0 Operative Report MR#: [id number] I [facility] Pt. Name: Binta Graves Room #: 5AB [id number] Discharge 03/09/2020 Date: Birthdate: 1980 OPERATIVE REPORT [...] P/Dakota Traylor MD Date Trans: 03/21/2020 04:34 P/chrissy [id number] cc: Jerod Deleno M.D. [address] [facility] [address] Normal [facility] *MRSA/MSSA DNA NASALon 03-07 *MRSA/MSSA DNA NASAL Clinical Report: (D ) Specimen: NASAL SWAB Collected: 03/07/2020 10:30 Status: Final Last Updated: 03/07/2020 16:47 MSSA DNA (Final) Negative MRSA DNA (Final) Negative Normal [facility] Comment on above: Performed By: #### 3 1595 #### [facility] [address] [place] [address], [facility] BASIC METABOLIC PANELon 06-0 Calcium [Mass/Vol] 8.9 mg/dL Normal 8.6-10.3 [facility] Comment on above: Order Comment: No: D o not add to previous draw Performed By: #### 4 1000, [id number], [id number] #### [facility] [address] [place] [address], [place] Chloride [Moles/Vol] 105 mmol/L Normal 98-107 [facility] Comment on above: Order Comment: No: D o not add to previous draw Performed By: #### 4 1000, , [id number] #### [facility] [address] [place] [address], [place] CO2 [Moles/Vol] 24 mmol/L Normal 21-31 [facility] Comment on above: Order Comment: No: D o not add to previous draw Performed By: #### 4 1000, , [address] #### [facility] [address] [place] [address], [place] Creatinine [Mass/Vol] 0.75 mg/dL Normal 0.60-1.20 [facility] Comment on above: Order Comment: No: D o not add to previous draw Performed By: #### 4 1000, , 11269 #### [facility] [address] [place] [address], [place] GFR/1.73 sq M predicted among blacks MDRD (S/P/Bld) [Vol rate/Area] mL/min/{1.73_m2} Normal >60 [facility] Comment on above: Order Comment: No: D o not add to previous draw Performed By: #### 4 1000, , 73988 #### [facility] [address] [place] [address], [place] GFR/1.73 sq M predicted among non-blacks MDRD (S/P/Bld) [Vol rate/Area] mL/min/{1.73_m2} Normal >60 [facility] Comment on above: Order Comment: No: D o not add to previous draw Performed By: #### 4 1000, , [id number] #### [facility] [address] [place] [address], [place] Glucose [Mass/Vol] 92 mg/dL Normal 70-100 [facility] Comment on above: Order Comment: No: D o not add to previous draw Performed By: #### 4 1000, 21590, 37705 #### [facility] [address] [place] [address], [place] Potassium [Moles/Vol] 3.8 mmol/L Normal 3.5-5.1 [facility] Comment on above: Order Comment: No: D o not add to previous draw Performed By: #### 4 1000, 91000, 04601 #### [facility] [address] [place] [address], [place] Sodium [Moles/Vol] 136 mmol/L Normal 136-145 [facility] Comment on above: Order Comment: No: D o not add to previous draw Performed By: #### 4 1000, , 22251 #### [facility] [address] [place] [address], [place] Urea nitrogen [Mass/Vol] 20 mg/dL Normal 7-25 [facility] Comment on above: Order Comment: No: D o not add to previous draw Performed By: #### 4 1000, , 14748 #### [facility] [address] [place] [address], [place] CBC COMPLETE BLOOD COUNTon 0 - Erythrocyte distribution width (RBC) [Ratio] 13.4 % Normal 11.5-15.0 [facility] Comment on above: Order Comment: No: D o not add to previous draw Performed By: #### 5 0608 #### [facility] [address] [place] [address], [place] Hematocrit (Bld) [Volume fraction] 44.1 % Normal 36.0-45.0 [facility] Comment on above: Order Comment: No: D o not add to previous draw Performed By: #### 5 0608 #### [facility] [address] [place] [address], [place] Hemoglobin (Bld) [Mass/Vol] 14.4 g/dL Normal 12.0-15.0 [facility] Comment on above: Order Comment: No: D o not add to previous draw Performed By: #### 5 0608 #### [facility] [address] [place] [id number], [facility] MCH (RBC) [Entitic mass] 27.0 pg Normal 27.0-33.0 [facility] Comment on above: Order Comment: No: D o not add to previous draw Performed By: #### 5 0608 #### [facility] [address] [place] [address], [facility] MCHC (RBC) [Mass/Vol] 32.7 g/dL Normal 32.0-35.0 [facility] Comment on above: Order Comment: No: D o not add to previous draw Performed By: #### 5 0608 #### [facility] [address] [place] [address], [facility] MCV (RBC) [Entitic vol] 82.7 fL Normal 82.0-98.0 [facility] Comment on above: Order Comment: No: D o not add to previous draw Performed By: #### 5 0608 #### [facility] [address] [place] [address], [facility] Nucleated RBC/100 WBC (Bld) [Ratio] 0 % Normal 0-0 The [facility] Comment on above: Order Comment: No: D o not add to previous draw Performed By: #### 5 0608 #### [facility] [address] [place] [id number], [facility] PLAT CNT 194 10*3/uL Normal 150-400 The [facility] Comment on above: Order Comment: No: D o not add to previous draw Performed By: #### 5 0608 #### [facility] [address] [place] [address], [facility] RBC (Bld) [#/Vol] 5.33 10*6/uL High 3.80-5.00 The [facility] Comment on above: Order Comment: No: D o not add to previous draw Performed By: #### 5 0608 #### [address] WBC (Bld) [#/Vol] 8.71 10*3/uL Normal 4.00-10.60 The [facility] Comment on above: Order Comment: No: D o not add to previous draw Performed By: #### 5 0608 #### [facility] [address] LUMBAR SPINE 2 OR 3 [facility] LUMBAR SPINE 2 OR 3 [facility] Department of Radiology [address] [place] [id number] Patient Name: BINTA GRAVES : 1980 Sex: F Age: Race: White Pt. Location: [id number] Patient Status: I Ordered Date: 03/07/2020 1:00:00 PM Completed Date: 03/07/2020 08:11 PM Requesting Provider: DAKOTA TRAYLOR Attending Provider: ARNEL GARSIA Report Copy To: Signs & Symptoms: L6-S1 microdiscectomy History: Comments: L6-S1 microdiscectomy Exam: LUMBAR SPINE 2 OR 3 [facility] Intraoperative fluoroscopic guidance HISTORY: Microdiscectomy. COMPARISON: Lumbar spine MRI 03/06/2020. IMPRESSION: 1. Hardware projects posterior to the lumbosacral region, please see details within operative report. 29 seconds of fluoroscopy time, 5 images. Electronically signed: Moris Vegas. Transcribed by: [email or web address], User Resident: Electronically Signed by: MORIS VEGAS @ 03/08/2020 08:49 AM Normal The [facility] Comment on above: Order Comment: The A ptima SARS-CoV-2 assay is a nucleic acid amplification test intended for the qualitative detection of RNA from SARS-CoV-2 isolated and purified from nasopharyngeal (RAILROAD SUPER[employer]OR [employer]), nasal and oropharyngeal (OP) swab specimens from patients with signs and symptoms of infection who are suspected of COVID-19. Results are for the identification of SARS-CoV-2 RNA. The SARS-CoV-2 RNA is generally detectable in nasopharyngeal and oropharyngeal swabs during the acute phase of infection. The Aptima SARS-CoV-2 Assay on the apta.me and apta.me Fusion system is intended for use by laboratory personnel specifically instructed and trained in the operation of the Wickliffe and Wickliffe Fusion system. The Aptima SARS-CoV-2 assay is [...] Magnesium [Mass/Vol] 1.9 mg/dL Normal 1.9-2.7 The [facility] Comment on above: Order Comment: No: D o not add to previous draw Performed By: #### 4 1000, [id number], [id number] #### [place] [address], [facility] OUTSIDE CONSULT NEUROon -0 OUTSIDE CONSULT NEURO [facility] Department of Radiology [address] [place] [id number] Patient Name: BINTA GRAVES : 1980 Sex: F Age: Race: White Pt. Location: [id number] Patient Status: I Ordered Date: 03/06/2020 7:05:00 PM Completed Date: 03/07/2020 11:41 AM Requesting Provider: DAKOTA TRAYLOR Attending Provider: ARNEL GARSIA Report Copy To: Signs & Symptoms: NEED CONSULT History: Lumbosacral transitional anatomy CT of the L-Spine without contrast done on 03/04/2020 At the [facility] Requesting Dr. Dakota Traylor Comments: Exam: OUTSIDE CONSULT NEURO OUTSIDE CONSULT NEURO 03/07/2020 11:41 AM OUTSIDE STUDY: Lumbar spine CT scan TECHNIQUE: Outside CT images of the lumbosacral spine obtained from the [facility] dated March 04, 2020. Image review [...] interpretation. Electronically signed: Ольга Johnson. Transcribed by: [email or web address], User Resident: Electronically Signed by: ОЛЬГА JOHNSON @ 03/07/2020 01:03 PM Normal The [facility] PHOSPHORUS BLOODon 0 Phosphate [Mass/Vol] 3.5 mg/dL Normal 2.5-5.0 The [facility] Comment on above: Order Comment: No: D o not add to previous draw Performed By: #### 4 1000, 74794, 32644 #### [facility] [address] [place] [address], [facility] POC GLUCOSE LABon 03-07-2020 Glucose [Mass/Vol] 97 mg/dL Normal 70-100 The [facility] Comment on above: Performed By: #### 8 5499 #### [facility] [address] [place] [address], [place] TYPE AND SCREENon 03-07-2020 ABO INTERPRETATION O Normal [facility] Comment on above: Performed By: #### 6 7196 #### [facility] [address] 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 Results are for the identification of SARS-CoV-2 RNA. The SARS-CoV-2 RNA is generally detectable in nasopharyngeal and oropharyngeal swabs during the acute phase of infection. The Aptima SARS-CoV-2 Assay on the Wickliffe and Wickliffe Fusion system is intended for use by laboratory personnel specifically instructed and trained in the operation of the Wickliffe and Wickliffe Fusion system. The Aptima SARS-CoV-2 assay is [...] information. Performed By: #### 3 1792 #### [address] MRI LUMBAR SPINE WO CONTRAST on 03-06-2020 MRI LUMBAR SPINE WO CONTRAST [facility] Department of Radiology [address] [place] [id number] Patient Name: BINTA GRAVES : 1980 Sex: F Age: Race: NA Pt. Location: [id number] Patient Status: I Ordered Date: 03/06/2020 6:40:00 [...] narrowing Electronically signed: Yamileth Barragan. Transcribed by: [email or web address], User Resident: Electronically Signed by: YAMILETH BARRAGAN @ 03/06/2020 07:54 PM Normal [facility] Comment on above: Order Comment: Spina l Stenosis, patient with left s1 radicular type pain - has transitional lumbo-sacral anatomy based on CT scan Encounters Encounter Date Encounter Type Care Provider Facility Start: 01-20-2024 End: 01-20-2024 ambulatory JEROD DELEON Not Available Start: 12-28-2023 End: 12-29-2023 ambulatory DAKOTA TRAYLOR [facility] Start: 12-16-2023 End: 12-16-2023 ambulatory JEROD DELEON Not Available Start: 02-25-2023 End: 02-26-[address] JEROD DELEON Facility: Start: 12-29-2022 End: 12-29-2022 ambulatory [facility] Facility:[facility] Start: 12-22-2022 End: 12-23-2022 ambulatory [facility] Facility:[facility] Start: 12-15-2022 End: 12-15-2022 ambulatory [facility] Facility:[facility] Start: 12-01-2022 End: 12-02-2022 ambulatory [facility] Facility:[facility] Start: 11-19-2022 End: 11-20-2022 ambulatory [facility] Facility:[facility] Start: 12-31-2021 Transcribe Orders Stephanie Mesa [facility] Physician Referral Service Start: 05-20-2020 End: 05-21-2020 Patient encounter procedure Zayda Frazier Facility:[facility] Start: 03-06-2020 End: 03-09-2020 Evaluation and management of inpatient ARNEL GAVINO Facility:[facility] Procedures Date Procedure Procedure Detail Performing Clinician Start: 03-07-2020 EXCISION OF LUMBOSAC RAL DISC, OPEN APPROACH DAKOTA TRAYLOR Start: 03-07-2020 RELEASE SACRAL NERVE , OPEN APPROACH DAKOTA TRAYLOR Start: 03-07-2020 Antibody screen ARNEL [facility] Comment on above: Performed By: #### 6 2586 #### [facility] Vega GARCIA. [address] Plan of Treatment Date Care Activity Detail Author Start: 05-03-2021 Influenza vaccination Influenza Vacc ine (#1) [facility] Start: 2001 Screening for malign ant neoplasm of cervix Pap Smear [facility] Start: 1998 Hepatitis C screening Hepatitis C An tibody [facility] Start: 1998 Tetanus + diphtheria + acellular pertussis vaccine (product) Tdap Booster [facility] Start: 1995 HIV screening [facility] Start: 1985 COVID-19 Vaccine (1) COVID-19 Vaccin e (1) [facility] Payers Date Payer Category Payer Unknown [id number] 2022 Unknown [id number] 2021 Unknown [id number] 1980 Unknown [id number] 2.16.8 [id number] 1980 Unknown [id number] 2.16.8 [id number] 1980 Unknown [id number] 2.16.8 40.1.129984.3.579.2.8 1980 Unknown [id number] 2.16.8 40.1.573776.3.579.2. 1980 Unknown [id number] 2.16.8 40.1.529367.3.579.2.8 1980 Unknown [id number] 2.16.8 40.1.399559.3.579.2. 1980 Unknown [id number] 2.16.8 40.1.102818.3.579.2.8 1980 Unknown [id number] 2.16.84 0.1.923190.3.579.2.1259 1980 Unknown [id number] 2.16.84 [id number] 1959 Self-pay [id number] Unknown [id number] 2.16.84 [id number] Social History Date Type Detail Facility Tobacco smoking stat [facility] Start: 1980 Sex Assigned At Not on file [facility] Medication management note 12-30-2022 Note Date & Type Note Facility 12-30-2022 Note [id number] [facility] Clinical Note 12-29-2022 Note Date & Type Note Facility 12-29-2022 Note [facility] SURGERY Clinical Discharge Summary PERSON INFORMATION Name BINTA GRAVES Age 42 Years 1980 Sex FEMALE Language Slovenian PCP JEROD DELEON Marital Status Med Service Pain Management Surgery Acct# Arrival 12/29/2022 07:38:41 Visit Reason LOW BACK PAIN Acuity LOS 012 22:22 Address: [address] [place] [address] Comment: PROVIDER INFORMATION VITALS INFORMATION Vital Sign [...] spine; Lumbar spondylosis Comment: PHYS DOC NOTES [facility] History and physical note 12-28-2022 Note Date & Type Note Facility 12-28-2022 Note [id number] FF The patient has been examined and the medical record reviewed. The indications for surgery and exam are unchanged. [Electronically Signed on: 12/29/2022 08:15 EDT] Sarabjit Blanco MD [Verified on: 12/29/2022 08:15 EDT] Sarabjit Blanco MD [Transcribed on: 12/28/2022 14:33 EDT] [facility] Medication management note 12-16-2022 Note Date & Type Note Facility 12-16-2022 Note [id number] [facility] Clinical Note 12-15-2022 Note Date & Type Note Facility 12-15-2022 Note [facility] SURGERY Clinical Discharge Summary PERSON INFORMATION Name BINTA GRAVES Age 42 Years 1980 Sex FEMALE Language Slovenian PCP JEROD DELEON Marital Status Med Service Pain Management Surgery Acct# Arrival 12/15/2022 07:50:00 Visit Reason LOW BACK PAIN Acuity LOS 012 00:14 Address: [address] [place] [address] Comment: PROVIDER INFORMATION VITALS INFORMATION Vital Sign [...] spine; Lumbar spondylosis Comment: PHYS DOC NOTES [facility] History and physical note 12-15-2022 Note Date [...] Anterolisthesis of lumbosacral spine / SNOMED CT 850694781 / Confirmed Lumbar spondylosis / SNOMED CT 687879170 / Confirmed, Active Problems (2) Anterolisthesis of lumbosacral spine Lumbar spondylosis Histories Family History: No family history items have been selected or recorded. Procedure history: Facet joint nerve block ([id number]) on 12/15/2022 at 42 Years. Comments: 12/15/2022 [...] 08:00) Resp Rate 18 br/min (DEC 15 08:) SBP H 148 mmHg (DEC 15 08:) DBP H 98 mmHg (DEC 15 08:) Weight 118.90 kg (DEC 15 08:) Height 172.72 cm (DEC 15 08:) , Measurements from flowsheet : Measurements 12/15/2022 8:00 EDT Height 172.720 cm Height/Length Dosing 172.720 cm Weight 118.900 kg Weight Dosing 118.900 kg Body Mass Index 39.860 kg/m2 General: Alert and oriented. Eye: Pupils are equal, round and reactive to light. HENT: Normocephalic. Neck: Supple. Respiratory: Lungs are clear to auscultation. Cardiovascular: Normal rate. Gastrointestinal: Soft, Non-tender, Non-distended. Integumentary: Warm, Dry, [place]. Neurologic: Alert, Oriented. Psychiatric: Cooperative. Review / Management Results review: Lab results: 12/15/2022 8:04 EDT U Preg Negative . Impression and Plan Lumbar Spondylosis , Procedure explained to patient along with risks of possible complications and patient wishes to proceed. [Electronically Signed on: 12/15/2022 09:04 EDT] Sarabjit Blanco MD [Verified on: 12/15/2022 09:04 EDT] Sarabjit Blanco MD [facility] History and physical note 12-14-2022 Note Date & Type Note Facility 12-14-2022 Note [id number] IFF The patient has been examined and the medical record reviewed. The indications for surgery and exam are unchanged. [Electronically Signed on: 12/15/2022 09:02 EDT] Sarabjit Blanco MD [Verified on: 12/15/2022 09:02 EDT] Sarabjit Blanco MD [Transcribed on: 12/14/2022 13:35 EDT] [facility] Evaluation note Note Date & Type [...] Records Found Hospital Course Note MR#: [id number] [facility] Pt. Name: Binta Graves Admitted: 03/06/2020 Discharged: 03/08/2020 Date of : 1980 Physician: Arnel Garsia MD DISCHARGE SUMMARY PRIMARY CARE PHYSICIAN: None. CONSULTING PHYSICIAN: [facility] FINAL DIAGNOSES: 1. Acute lumbar radiculopathy/lumbar spine stenosis, status post laminectomy, doing well. 2. Essential hypertension, stable. 3. Polycystic ovarian disease, on metformin. 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) Procedures [facility] WEIGHT MANAGEMENT SERVICE REQUEST LVL 3 EST PT, LOW MDM, 20-29 MINUTES Jerod Deleon MD [address] [place] [address] Weight Management [facility] [place] [id number] Referral ID Status Reason Start Date Expiration Date V isits Requested Visits Authorized [id number] Authorized 12/31/2021 12/31/2022 10 10 Additional Source Comments INFORMATION SOURCE (unrecogn ized section and content) DATE CREATED AUTHOR 05/28/2020 [facility] DATE CREATED AUTHOR AUTHOR'S ORGANIZ ATION 03/11/2023 [facility] DATE CREATED AUTHOR AUTHOR'S ORGANIZ ATION 03/11/2023 [facility] DATE CREATED AUTHOR AUTHOR'S ORGANIZ ATION 01/21/2024 [facility] EPIC DATE CREATED AUTHOR AUTHOR'S ORGANIZ ATION 01/23/2024 [facility] FOR RECORDS PERTAINING TO PATIENTS WHO ARE [...] BE BASED ON THE PRIMARY CLINICAL RECORDS. [employer] provides no warranty or guarantee of the accuracy or completeness of information in this document.
== END 2024-01-27 08:00 | disposition home or self-care (01) ==
LOC: RAD 08:00
PROVIDERS: PCP Family Medicine; Visit Provider Nurse Practitioner
DX: M54.50 Low back pain, unspecified (principal)
CPT/HCPCS: 72114

== ENCOUNTER 2024-02-07 14:17 | Outpatient (OUT) | payer BC, SELFPAY ==
--- NOTE | 2024-02-07 14:20 | CT_ITS ---
[address] [address] Patient Name: JEIMY BOWLES MRN: [facility]:[id number] date: 1980 Sex: F Assigned Patient Location: CT Current Patient Location: Accession/Order Number: [id number] Exam Date: 02/07/2024 14:30 Report Date: 02/08/2024 07:29 At the request of: NON-STAFF PHYSICIAN Procedure: CT lumbar spine wo con EXAMINATION: CT lumbar spine wo con HISTORY: lumbar spondylosis M47.616, lumbar radiculopathy COMPARISON: 05/20/2020 MRI. Plain film 01/27/2024 TECHNIQUE: Axial, Coronal, and Sagittal CT images were created without I.V. contrast material. Dose reduction techniques were achieved by using automated exposure control and/or adjustment of mA and/or kV according to patient size and/or use of iterative reconstruction technique. FINDINGS: PARASPINAL AREA: Normal with no visible mass. BONES: For the purposes of numbering sagittal midline image 32 extends from the T12 vertebral body superiorly to the tip of the coccyx. There is exaggerated lumbar lordosis at the L5-S1 level. There is lumbarization of the S1 vertebral body DISC LEVELS: 12-L1: No significant disc/facet abnormality, spinal stenosis, or foraminal stenosis. L1-L2: Early degenerative disc disease is present without focal protrusion or neural impingement. L2-L3: Early degenerative disc disease is present without focal protrusion or neural impingement. L3-L4: Early degenerative disc disease is present without focal protrusion or neural impingement. L4-L5: Early degenerative disc disease is present without focal protrusion or neural impingement. L5-S1: Disc desiccation. Posterior broad-based disc protrusion extending up to 3 mm. Facet osteoarthropathy. No central or foraminal stenosis S1-S2: Lumbarization of the S1 vertebral body. 6 mm anterolisthesis of S1 in relation to S2. Severe degenerative changes of the intervertebral disc with endplate sclerosis and vacuum phenomena. Facet osteoarthropathy. Significant narrowing of the central canal likely developmental. Moderate bilateral foraminal stenosis, left greater than right CT/CT lumbar spine wo con IMPRESSION: Lumbarization of the S1 vertebral body 6 mm anterolisthesis of S1 on S2 Congenital small sacral central canal Bilateral moderate S1-S2 foraminal stenosis Electronically authenticated by: BRADY HALE Date: 02/08/2024 07:29
== END 2024-02-07 14:18 | disposition home or self-care (01) ==
LOC: CT 14:17
PROVIDERS: PCP Family Medicine
DX: M47.816 Spondylosis without myelopathy or radiculopathy, lumbar region (principal)
CPT/HCPCS: 72131

== ENCOUNTER 2024-02-13 09:33 | Day surgery (SDC) | payer BC, SELFPAY ==
[2024-02-13 09:51] VITALS: BP 141/95; PULSE 105; TEMP 36.2; O2SAT 98
--- OUTSIDE RECORDS SUMMARY | 2024-02-13 09:53 | XMS_ITS | CCD ---
Author Organization [facility] Care Team Providers Care Mobile Home Installer Name Role Phone GAVINO, ARNEL Admitting Unavailable GAVINO ARNEL Attending Unavailable SAMMI ARRIETA Referring Unavailable NADERER, JEROD Primary Care Unavailable NM Procedure Practitioner Unavailab le UNKNOWN, PROVIDER Surgeon [...] JEROD Attending Unavailable NADERER, JEROD Attending Unavailable TRAYLORDAKOTA FRANCO Referring Unavailable TRAYLOR, DAKOTA Referring Unavailable TRAYLOR, DAKOTA Referring Unavailable TRAYLOR, DAKOTA Attending Unavailable Allergies Allergy Classification Reported Allergen(s) Allergy Type Date of Onset Reaction(s) Facility (1 source) No Known Medication Allergies; Translations: [No Known Medication Allergies] Propensity to adverse reactions to drug (disorder) [facility] Repository (1 source) ALLERGIES NOT ON FILE; Translations: [ALLERGIES NOT ON FILE] Propensity to adverse reactions (disorder) [facility] Repository Problems Problem Classification Problem Date Documented Da te Episodic/Chronic Administrative/social admission (4 sources) Encounter for pre-employment examination; Translations: [ENCOUNTER FOR PRE-EMPLOYMENT EXAM] Onset: 02-25-2023 Episodic Other nutritional; endocrine; and metabolic disorders (1 source) Body mass index 40+ - severely obese; Translations: [Morbid (severe) obesity due to excess calories] Chronic Spondylosis; intervertebral disc disorders; other back problems (2 sources) Spondylosis without myelopathy or radiculopathy, lumbar region; Translations: [Spondylosis without myelopathy or radiculopathy, lumbar region] Onset: 02-01-2024 Chronic Results Test Name Value Interpretation Reference Range Facility Orders Onlyon 01-18-2024 Orders Only [id number] Binta Graves 1980 F Date Provider Department Center 01/18/2024 ZAYDA MARTINS ONC DCC No family history on file Normal [facility] Coding Summaryon 03-03-2023 Coding Summary HTMLBase 64 RerpbxfmIYs6jTg+PGhlY WQ+VX9ZDTZoI14riKCznC 8rU2TNIRuIGvbvZBMFSYv RCxIcrpFtJS8lnANzRDIx IC8+YX3hFOWzFianqGGdm 4E7nKN8M31azk9bRAtnmM N9QGKeZlVoarwao5jgmOt 6IDcuNmluOyBt KNGbcK33UVP3bZ54Gk91t KTnlYKyx2cptZl8OxUoFF PcHJE8cLskRPxdb5CfLEX uX14ouTClt4C7 PNIljWkxuNGdHgBndNG1h J2tJMbrwlbns1shhbscFh u5wx87rKQzj7W6sJO8S2W rjuB8NECtvJUj RovwfTRVjP7xttryz9acp hqePwDcXQQcVPm7XFs0EC AqeNjnGaNgJN64GLF9APG glzSiV3MzBHEp iUzbBaI2m5W8Mc0FC7MYB ehxB1SBIREFNNpvnAO+PC 59tf86P4KxNnpiPij9PRM jPWA6cSP8vI7w BASwOSpfw0E8kKA4Z8Qgr oVwoi1fa3soGEWiUGknF4 6mbPClx0W6IIJjpYQ8HKG glCwyPaBpeY75 Oyc+BNYqlYngp3VhFhfhu 9kxi5slqAy7RydwLQYtep RqpAuqXTO1t8RvSn0mOCT sxTW9sEG0jB2q LqMlThE6PWsiM978YqSqn JVwNtvqD34aI4LjxXU+PH CgHsb4ZITrqVoiSM0gN7K hZGRpbmctbGVm zLkuKP5aMWMyjyfzUYRhf K9lZHEoC1u8HsEbGlL7TH pdV4PyKEJwqzwhUn46wE7 vAbUzTuQ3ULxj J8LyqoU5TPOeoETuMMhyB GU1F43ck6P0XKLeIOCyBB K9tMX1yT2wzGaovfgtwRS mdDsgdmVydGlj YHahELqyU184GKFovHewA kNvZGluZyBEYXRlOiAgMD YvMDEvMjAyMzwvdGQ+PHR sEOK8uQppQBYk fEWcNKwtEw5spPeglDqdU C0pJODkinzuWHYtgE8xZK ThzIWmrWckAJ6hFVUwflc vk020EaGwZRX4 RKJhdORpR5IjiZ5lCxGaC QBxWZDbU1NfwWMbDOfhB3 94IFgzIeV0PYOrfyYoI8I sLWFsaWduOiB0 o3F9Fj0Ta6IssqibR5Tmm LKhHkFqErbvXHi8F2GaLr wvdHI+EY36QNCjNK14NMf 9GFG7fCfzFPcs VNRhT3DciT0yOaKjCBItZ GRkOyc+PHRhYmxlIHdpZH RoPScxMDAlJyBzdHlsZT0 qKm0cQMNgLCIb lZuhuELuQuKtl8rbWWCqO IwlAN0yeFzrU0IixQJ0ZY Pep1z2Ox40O69oT2IgrDQ +FRNdwVZ0hFM4 sK0pPpGjNmZ7DXloW681D oYfdGWeFbdju3qei9mplY b7BfP8KUAkwkBnnMcgGEZ 2s6WxSl42Z47w IHdpZHRoPSIxNSUiIHZhb Fuazu2usN9aQq9+PGNvbC S3vSB1tC0yFkIeJyY3ZCa tG047SySmiXUe Semsh4vtj5xovDo2RoAaC ZPnsxUkeKecCJO9k8IiYv 13O6WovSgmk6QpBui6pr2 4oPFqu4W7kQI0 M1WzGARkljyvjOWqlXyeF K2yDSBqbfkkZOHlpJ5fLU GhD0n4CwKiKcX0HEvjE7W nypG2EZAxkHMh CGEizEFYzG0wkylna3ywv jdeWhIjTEUwBDp8ILh1RN UmsKbtGhKnDTB2QbP1OOY 9lQUotB0smVha jqtbsN0rJcm+VHZ0aKFjp CCUNC2eIlfckYS+PHRkIH D3fVvaWQxoAQBgqW4eNWY pA1u9DeZcIkE3 XHxoB7GtkvR9QNFlvJBxR YCqvXAFqK5emnuub8xrko qqCwVhIBUlSBb0GNp2QGZ saWduOiBsZWZ0 DlU1MWX8aSSjiA3keBxdl gxloS4oHdx+QmlydGggRG C9OGl7O9VyQub6MXMhbLq wJP6yjZLtOIoe Ko6ukDicoMggZF0vDREjx utum129ToHkq3ppIMUntA BeFGtrOID1P99rv4J6ZSW uAEBfHWZ0xMC5 qV2xhNymvzcwrXSidCona jNqpPlvYMigXPhhM732WU SxmNoiSaRlCWy7R7HfWmk 2EETtwQijXV9f kOWcQYtgNp8xoMnmvOkaA M3xEBXqukkyz170BxLse5 zdXDBmfRZpRQbvIFO5A97 td0X2DOAoJBLy FEI5eEQ2sE7odNptgwssq GVmdDsgdmVydGljYWwtYW xeP131MQShpDqxQdBtfLx 6F5YuQso8VHXh vWgwUN4sxVLfFRbzQt6qb ZvubPguLQ4vYIJeyanni1 41VxSev1xoWFOhaTUjQJa kXOA9L44sk5T1 XSBrKASpGKB3hUP1mI8cd GlnbjogbGVmdDsgdmVydG okMEiwNKelH432BSLvsEs nPlBhdGllbnQg NZfqMIz1Y2EbSrcqvTD+P D33LVRzXC46nBIwqWDxj0 uswGx4XwIiUDVrVOV1mXq yMJdlp1WlLFAp N64fpSEdl5N8XFCjqNwbu LUySbRpgUO5nC1zVKvpsg blk8mpkgobEqsil7pvof5 2gH40E01fNKjp ZHRoPSIzMCUiIHZhbGlnb o1ehL4sKa8+QOMygEJ0aZ W2uJ0gJHMhLaI7MTazB35 9InRvcCIvPjxj c7rok9rpgVf1NjP7QGZwf hHncCznGZG9w3RlLx82Q9 9sIHdpZHRoPSIyMCUiIHZ kyCghhx3acJ2q Ii8+QPUkfEL1sRR2kP3bR zGaVbT5VDyeQ563DtNivV TuCnmkX03aW3FwtQT+PHR fQcj5TROmaBml WO8qnTJgRDrdFc0xUMA0F gHhEgSaAYxiU0FgTHMzbm sghksmsKI8VFLcWMNmxR8 3Wh6mzLpcABPd vIHLuM5zyvvnj7dolpaaG yQrEHTbFNc2KQo8CYVbnL mpFhGpZUW6QyE3SNP0fES uxJ5xkBmkysde nW1iL1FeIHDnspipCi17o N8oLaMdXpE3XQeuVyr+TU FSVElOLCBFTElaQUJFVEg qJD8YDP95IV72 fEMwm9V8xEH9J7WdADKja whmjgmyiCP1NOPnBQHjiW 37yHStZSsoZq2ks8E0r35 7PYMgXITfuR71 Pl1kuEyhMNJqlFOUrC6qu sdag4kumllxMsHqABYqMU y0MDa4EKVrcTisIcAuPEG 4ZlU7JXJ3gAGp wB1elWyssxtrcE0zYul+M XaiQDZlHPt3VOztpYD+PH KmSMJ9aEhcHFniWZRmjM1 oQNBxX5d2ApXx LiL0JEmeR8PcYYXrtsabW b56hL9uWdIcXoF1EAskJ0 VlwtY4BXFfxBJdJCaePUN 7R23rt0N0NLAs UJAjRFL0tXM0uI2rpLqgp jogbGVmdDsgdmVydGljYW fxLQydZ233LBQbdOtdMkU rGKrxLBRcWJ47 KU67lWEtw6F3mYY3B1PpT IEpqpbujoattQE1LMZyIB XebZ92jZMvCXxaKp7no2Q 1i137ZQTaIUBy aV04Ea7zmWlbSXMmdDAUf B2ulctnc3lfifbhMiWfFC WeDYt2UEd2JQCxgDfpWzR wTWJ4GlH9ZJR2 gWQsxT8nnKnpyiagfL0qX yc+AyJUTSyHXV91PZ12gD Rlj1P4pNH0D7ObZIKbbbf hlsomiAI8YDQp JXWbjK52bPJyHOkuPi8zq 9Z4f893THQeZSHupW38Hd 2baLycTAKphBDNuE2tdgq me5nryjnuOkEt AZJdSEd5XQw4CNHxaOgjP tDvMOU6JbP2DHU9oZSkhX 4erPwieugfvH4gCzr+T1A 6K7YhMjchdSO+ QK97IJWqXT08wTUatWKvk 7egxBu2OoGuQTXgPAU2qR hsYHhfj0XqWDVnY22sdBQ df6S9TPPizHcz fIFjKnMnoFB4eM8lFQaym pfhi5cyshjsLiyds4zpws 06dB60O67bNRypSMYtCRL zMCUiIHZhbGln ls7ovE2dVu2+FQWbcDU9g LN4sW9aPlVfNvU3GDtxF6 63UpLhiWOyRzcls0pdl3r foSy5NgZyHKYr xbJnjJomQBC3e8JdEd18A 29sIHdpZHRoPSIyMCUiIH JroRoxay9xoG2yAr1+PC9 ih5xxtg06jX87 dHI+FPCyPKH1vOhsKRgrO KWfcZ9nWVlhYoC8MYPkHk JdbM21gXDoMRpfZh1kaCc ckYxhAO6zPNOh easoj282CvQgg0dfMHJmi ZXuXZjoGCB8A65mv3U2FY MmYRAkUSF4xED8wD0idKc nbjogbGVmdDsg vmCsjEehPImwNDgcP983W SJddFlcTyBcpFAuP8nlpp ZLZI1nVpnqwAW+PHRkIHN 0eWxlPSdwYWRk vO5bTUCmG2i9WxIlGeB6D OobF4WddqV7KHRhfTKoER ItzTONaT4ibipce4ykiza gIzAwMDAwMDt0 EJw2YXVmoQamRfHtEER4B cY1HVL5pKGytE9vmIomye gstB9uKzw+RklOOjwvdGQ +HBWtBIS5mZmy RSrqCPRyjZ1yJWAhW7f6C pZuZaL3GByxS1BxpuN5CG RnvVIrACFilALRrQ5sgqw ik5ycsexdVbXq HCVyPGt0FKp4EFQvaMbgY sAmAFS9XkL4JFE0hSIahM 6fwYsikptkeZ9lQll+TVJ OOjwvdGQ+PHRk YNO1zOqoUFbbGSCazS1jM CLjK7q4MqSuNyN0MYijA3 PikuK5KOOegWZqWMLanPJ WlE9wolhvw0kd zqsmSmSbITMmCYz9TBz8N FNacHzmShKuWQR4EmN9XB U3vSZolR4rlIlcxgfgrG9 wOyc+KFW0NZV3 OL06TI43X2VqGpnqcBXjk +PHRhYmxlIHdpZHRoPS fkRSJiHzGlqVidBY1hFr8 yZGVyLWNvbGxh cHN (more content not included)... Normal [facility] QUANTIFERON TB GOLD PLUSon 0 02-27-2023 QuantiFERON Incubation Incubation performed. Normal [facility] Comment on above: Performed By: #### Q NTTB #### [facility] [address] [place] [address] Dr. Shon Barger QuantiFERON-TB Gold Plus Negative Normal Negative [facility] Comment on above: Result Comment: No r esponse to M tuberculosis antigens detected. Infection with M tuberculosis is unlikely, but high risk individuals should be considered for additional testing (ATS/IDSA/CDC Clinical Practice Guidelines, 2017). The reference range is an Antigen minus Nil result of <0.35 IU/mL. Chemiluminescence immunoassay methodology Performed By: #### Q NTTB #### [facility] [address] [place] [address] Dr. Shon Barger HEPATITIS B SURFACE ANTIBODY , QUANTon 02-26-2023 Hepatitis B Surf AB Quant 14.2 mIU/mL Normal Immunity>9.9 [facility] Comment on above: Result Comment: Stat us of Immunity Anti-HBs Level Inconsistent with Immunity 0.0 - 9.9 Consistent with Immunity >9.9 Performed By: #### H EPBSRF #### [facility] [address] [place] [address] Dr. Shon Barger MMR IMMUNITYon 02-26-2023 Mumps Abs, IgG 156.0 AU/mL Normal Immune >10.9 [facility] Comment on above: Result Comment: Nega tive <9.0 Equivocal 9.0 - 10.9 Positive >10.9 A positive result generally indicates past exposure to Mumps virus or previous vaccination. Performed By: #### M MRIMMU #### [facility] [address] [place] [address] Dr. Shon Barger Rubella Antibodies, IgG 1.73 index Normal Immune >0.99 [facility] Comment on above: Result Comment: Non- immune <0.90 Equivocal 0.90 - 0.99 Immune >0.99 Performed By: #### M MRIMMU #### [facility] [address] [place] [address] Dr. Shon Barger Rubeola Ab, IgG 116.0 AU/mL Normal Immune >16.4 [facility] Comment on above: Result Comment: Nega tive <13.5 Equivocal 13.5 - 16.4 Positive >16.4 Presence of antibodies to Rubeola is presumptive evidence of immunity except when acute infection is suspected. Performed By: #### M MRIMMU #### [facility] [address] [place] [address] Dr. Shon Barger VARICELLA IGG ABon Varicella Zoster IgG 1057 index Normal Immune >165 [facility] Comment on above: Result Comment: Nega tive <135 Equivocal 135 - 165 Positive >165 A positive result generally indicates exposure to the pathogen or administration of specific immunoglobulins, but it is not indication of active infection or stage of disease. Performed By: #### V ARCEL #### [facility] [address] [place] [address] Dr. Shon Barger MAGR Intraoperative Recordon 01-03-2023 MAGR Intraoperative Record MAGR Intra-Op Record Summary Primary Physician: Sarabjit Blanco MD Finalized Date/Time: 01/03/23 13:44:55 Pt. Name: BINTA GRAVES KATIANA ManriqueO.B./Sex: 1980 FEMALE Med Rec #: [id number] Physician: Sarabjit Blanco MD Financial #: [id number] Pt. Type: D Room/Bed: / Admit/Disch: 12/29/22 [...] 3 Case Attendee Sarabjit Blanco MD, RN, Gail Cox MA Role Performed Surgeon - Primary Travel Sales Consultant Travel Sales Consultant Time In 12/29/22 08:38:00 12/29/22 08:38:00 12/29/22 08:38:00 Time Out 12/29/22 09:05:00 12/29/22 09:05:00 12/29/22 09:05:00 Procedure Radiofrequency Radiofrequency Radiofrequency Ablation(Bilateral) Ablation(Bilateral) Ablation(Bilateral) Last Modified By: Tiffany Tyson RN, Rebecca L RN Votino, Rebecca L RN 12/31/22 09:51:06 12/31/22 09:51:06 12/31/22 09:51:06 Entry 4 Entry 5 Entry 6 Case Attendee Eveline Chen RN, Jalen Houser CST, MD Role Performed Travel Sales Consultant Scrub Personnel Anesthesiologist of Record Time In 12/29/22 08:38:00 12/29/22 08:38:00 12/29/22 08:38:00 Time Out 12/29/22 09:05:00 12/29/22 09:05:00 12/29/22 09:05:00 Procedure Radiofrequency Radiofrequency Radiofrequency Ablation(Bilateral) Ablation(Bilateral) Ablation(Bilateral) Last Modified By: Tiffany Tyson RN, Rebecca L RN Votino, Rebecca L RN 12/31/22 09:51:06 12/31/22 09:51:06 12/31/22 09:51:06 Entry 7 Case Attendee Froy Ramos RT (R) ARRT Role Performed Missile Inspector Time In 12/29/22 08:38:00 Time Out 12/29/22 [...] Agents (Im.270) Povidone-Iodine Prep By Vida Figueroa RAIL CAR OPERATOR Prep Area (Im.270) Back lower Prep Area Details Bilateral (more content not included)... [facility] Coding Summaryon 12-30-2022 Coding Summary HTMLBase 64 QpjikjtjNQu3sVs+PGhlY WQ+IV9DOBQcI17uvAHnlA 0MH5fTRA4SZAEOCDKLQH1 HOH4bzEY7CFivB5QdixSk KswuyQIcDY09PIg9PZL4h HxpIZptsO3amYSlF6o8Ee IwZO28yJ89YJzlGXSeHaE 3LjZpbjsgbWFy G1bkIaWhpYSpAxe+PHRhY mxlIHdpZHRoPScxMDAlJy KpsQnlWS3mSw6uVZEqUXY vbGxhcHNlOiBj x5hoYPNiGWrzNS2dcHdgM 6OmnOC0GZBop3d0Da59nE I+TXWtZKQ7iGgqWIhix52 7JjOrp2ohQCM9 sGPuSEprHTU5X77qi1P3K LJmLEHrGFN1mFY5dY8uuG cezlnbK7QopEOdMwL7DWO 0gCUvzB7sbOdw feyebL2qFxg+Z72XKO8PD YSJTC5IOwa7V9CuRfvuoI I+SR46YLNlVO24wZMatKM vr9kcfIr5VxDm LTRpRRB5mEjoCQgbf8RbQ YYdP17qsMBhg0N7WWMaeK hzrSArCbZxjNX4gW1cNFj viaehi5daaxdg Siacq6cbwx61oI63E58cQ NamDQUrBAA9JBUuEJNxaI fgty2gzK3bFl3+MHmqc8x yo1fyjFl7FvUb OKVrmyWvzYskOJM1k1AkY v12I2DjcDugj9GlIhr9xc 76aATex6Q9lPZ8GBimRZJ bmU2nBCouZbJ0 TAAyXxGsxA00gTCbYCjpO b7yfKgvwOimVM3tJNQzls tsBDUbkJ0iWIJcpOFwhTe rRZ9eTZCjhkju x813XwCvBPR0LAAaaAAqV 8XebV7yLeNoHHDaHZDdV4 KlmINtUKkbZ911UMznJhN 2GFGijePaH8Jv VWNyaYejDmO4b4U0Vm1Rm 5GpwaqnTWX1IXbqKCBfSo ScBeJmKlR6K9KfJkz6PAN blGooTJ1rM3Sl IZFkfnipcrynfQZ2ANZfN WQipI84wGLiPMkbLl5xo3 D6x986KXQtXZQcsO43Gh2 udDogMTBwdCBU yO6vwhlnw7ekrvkaNsWfN CTsFKt9KFn9ZQWjkIckKa HaRLB4XgI5UGC8jPAneC2 onWnzcpcezC9q Oyc+A18gvX1oXAJ6MYV6w phxHFVmdsOeOR27CQ67E3 RyPjwvdGFibGU+PGRpdiB uwAhcXG0zQnWq r3cio3ZkGWexZ6ToYMAsR NtqAgl1ZZDjRKC6jYB7oC 1fBOZtMWera8W5vCC5X3F urvKcxb4ro7hd XTEgOTraE98myEAct7M6I TXmaCM4TYRhcIyzNzHzwY 93Oyc+DDQqhBdso3UjXye bw1ktj5vibMy3 OrHbGYHshfEbsBvqORW8t 2WgDz99X34yYRswGIYsMO CfLQJsAFDygWklrz1orV5 wIi8+PGNvbCB3 kFP5hI6lWJZmEmU6GWdwJ 527IwTyfAQlXongd3jam5 ngtPg2ChTdGHKkaiFpyRg pFVW0r2GdVi95 L70zOYkjCTSkJXElMPYjG LEiiEyugs6sbE2bBu3+PC 1jq1jffh67lN21wPS+PHR dPZQ2dWqpIAfq HAJqzH6rYGwlGnJ3YKOnU cEswB22fWYwKJyzYa9vhB kuvBppGG7sHKJfrtlcw41 2PyGfo8hrPKHg eUVlFIwiHJH5M94nc8L4K DIeCHPiCXT1lNE1sP5uzX lnbjogbGVmdDsgdmVydGl kJNlbQJfhA525 IHRvcDsnPlBhdGllbnQgT hViPOe1F0IbSxn1INPkdR evPA6xjTGpAFvlNo1erJj fpNvzDX7gJQGb intuz960PsJop6vhSBMzw DHqPJvbDFL3S84rw9E3OE YaYCRpQMG5fOH9dV9tfLj nbjogbGVmdDsg hyZlrWjiDCkrIBojO998K HRvcDsnPkJpcnRoIERhdG V4UH53MA49zDFiz3S8aJG 6A8QpUOSwughn kmtgdUQ9KMRqUXBnaC29J j1lxWgbUq3wOCKwEZH0TV FviYAgD3FxxJ1fVmVaDSE jTLWnN0VtdSVu AIcsR192GMewTrD7MXMzr nBbT1TyZOCthCldWeP3k3 F4Dv5AV9V8SR37YI67pMN oy2U7oMX1H6Si VAYzjeqmqinxcYF9KEAwE LSsoJ03Ui3uxRdrHg1rKV WsCIF2ZXTjfSWsC8MzcH8 yOiAjMDAwMDAw R7KmaJTrPTrnC845NIryP uA4LGHrcgScA7MrNWWikP pmCrN7k2O4Jv1LWSp4IZ8 7SC65tZXbt9X3 yUS9M1HpPLWnokavmfdsd VO9CZDwHYXyiN76Kf2cxD vyEf3eDJPbATT7XPDcdAM sG8GxrO9cMsCd GCRrEHOrJ5GspUCjZAwcI 996YIykJnS9ZJIhalYjZ7 BkGQHilBurKeT1t1D4Ub5 YBSJtPV18IJJ5 rPE1NQ43EJ51W2HsSjpip GFibGU+PHRhYmxlIHdpZH RoPScxMDAlJyBzdHlsZT0 aLj6dJWMsNTWr hQwajNOmQvMba4yiXEVnM OfvOL4tdPqtF1GzvVE8BM Lwr8r0Dw73R32aX3JlzYA +EIQfaPY5eMJ3 rQ3lAaOsSnO2YDwqG922Z mEwyGCeAlceq8euh9zdbT y9GrR5CEDlhdEmpSxxZLV 2c2VyOh70Z81a IHdpZHRoPSIxNSUiIHZhb Htwdy9gyV9iRe9+PGNvbC K6nVD7pM1vLeWdUwD4JBu yK897ScSijIWk Iutuh2nql7ymjMl0ZvIsX CWtwwKpdApvXEF4x1UxBj 59R0DvdUmfk3AvHfd0de8 1mTOcl5M9gYC2 U9KqYAXzofrskBXoaNtnK G4eSHGgdzkkSDMgmV9cQR PuH1l5LiZcHiK6BDohE9L nwwG7CRMebEKm KWkgDFB6J23hu2T7ADFkG XWxIRP0cJO0hR6klYejka ogbGVmdDsgdmVydGljYWw rTAmyO128GKLe kRejTEQxoC4uOTGxaXBhw FcuUT6mKZDxrfmkTm4SFx RJTiwgRUxJWkFCRVRIIEF OTjwvdGQ+PHRk OGF6qSjiMIaaGSKsyH8fW FBjN4e1OjTsWbF5XEeaC4 AwEXUhgwpzXo75mR0xKfR xTyZ5OZicJ4Ar mvX7USTpgFHuSRylJRJ9L 93xv8V2TUQqAPEnQQX4cI Z0xB8liLsnebcuoYAqqUa gdmVydGljYWwt DKqxA404FTFfyPfjIaC2G sMiFuI9RNL0P1RtIfb4XO YmqCkrMS5ljXQlLXgwUe3 klZztuJslON5b WCJxzxjvTCJxhE7qNEYhu NVhsEhoUM5jHBSglxkni6 29VtEuYGU9URBscQBqJ6Y hdE7lSuLkPWMw VDWiB6QhwVFnIBuqM217S PucBmX6ZNLkhwStL1ZoEU WzaSiyRgR2e0T2Gr73DdR ZZWFyczwvdGQ+ VWLiWKR6xPfmTJfiBUFnm W0oKCWwN5x4QzOzNzY1NH mmL6LdMEOdtpegWf32sN1 iXwRvSiZ7SDee S1VxugS2LDAilKCaPHvoX GX9U16yr6M5JRAjJUToFU G4dOJ5aO1qdPbkbzqcrVH mdDsgdmVydGlj DTrnMRgqS935BJBguNatO kZFTUFMRTwvdGQ+PHRkIH E4gNugLSzyJVVlsM1kBJT mJ9b7YbJgGrS1 DEauT4AvAPPeyqobPg76y X5hVlSkJmV3GAdnU5Oetr T3EGRcqQDvDJwjYBK0N64 df2N2MTYmZSOg PEC1sJD9eU1rrFabkxdsp GVmdDsgdmVydGljYWwtYW klC113OIAmpJdaEaLxtZF UjPOsUME9KD18 IM82H6GlIndguOYaiFJ+P HRhYmxlIHdpZHRoPScxMD CgYbPqoVjaDO7yZc9pIXQ yLWNvbGxhcHNl IuAlh5peJKMqHHdrAM7jh OajU6UhsFC0UVTbg1n9Bq 00K62sU0QyeJC+PGNvbCB 0aCF1xY9eDwXu TiQ0GXnlP647VpYqcOAjR cqdj3uzl3slwEb6NkFiAE HskiWpeOfjQCW8y1HfNg3 5F24wXDyvIPOp YLHnYCCeKZUxfLrnjo3ab G9wIi8+ILObfNR0fXZ3aK 6gYrObToK9CPzxG166XdI icITlCsluQ27e P1DjtHX+RURkFeb2AACht AkiZC1cxMGdKMmaBx7qWO O6QmLwReKeZMcbF1NmIMC pbmctcmlnaHQ6 LJNnAMVygR94Zs0rlTquC f8pMRBxAMU6IAJmrYHmO9 ElzX5eVmUaVUMqJUCvY1B hqIYcRYgmA162 NDwtHbE1AXZtwaLgW1IzY HGxjDvtMyI1f6Q4Nz0DaF pbwAUpVX7aXcNiGTi4E6I vPfj4AGRdaCpo SP6goZUpIPlrLb3gxHmcq XesQW8cRVEywhtpb067Kz Iip4rcEHPryVJpPAsjQGH 2O70te5B3QYZq BWHyIAK4cPD4hA3gnIzoa jogbGVmdDsgdmVydGljYW liAGmuU473KGDpsBcqXwO QLds8E2TlTjf8 SHMmmFhtKE0omCEwAGcyP g8zcOcnfOdaZY7zXVLaal xbz319BbYeg7yoDXMreRZ yLTmvHXD6Q43g y8X1PEEqEUYbQRS2qRC9c J5zrMjiacuibUGcoFteaw PqwMwuQBmeRHhaE447HQZ vvHqkQf6AGea1 N1BeJzp6AGQobErpIK9nd JOtQWxjKw1qdCrzyNvjLQ 8vPIAaogfrn506SbQxl2g kIDEwcHQgVGlt AYI0O69mv4G4XPPtMLOiJ TN5kLH8iC1czIvzjstpvP VmdDsgdmVydGljYWwtYWx vY905URIgvGrr PlBheWVyOjwvdGQ+PC90c l98I9GnKngkMlp4FMJmCJ A8pWZ3rV5vCTMkIHqtj3N 8vGB9D8IdixWb ci1 (more content not included)... [facility] Consent Formson 12-30-2022 Consent Forms [id number] .[id number] [facility] Anesthesia Noteon 12-29-2022 Anesthesia Note Patient: [...] 29 09:16) Resp Rate 16 br/min (DEC 29:16) SBP 135 mmHg (DEC 29:16) DBP H 94 mmHg (DEC 29:16) Weight 117.10 kg (DEC 29 07:50) Height [...] on: 12/29/2022 09:33 EDT] Jalen Hagan MD [facility] Anesthesia Note Patient: BINTA GRAVES Age: [...] All Problems Lumbar spondylosis / SNOMED CT 923780126 / Confirmed Anterolisthesis of lumbosacral spine / SNOMED CT 297413666 / Confirmed Histories Family History: No family history items have been selected or recorded. Procedure history: Facet joint nerve block ([id number]) on 12/15/2022 at 42 Years. Comments: 12/15/2022 [...] (DEC 29:50) SBP H 143 mmHg (DEC 29 07:50) DBP H 92 mmHg (DEC 29:50) Weight 117.10 kg (DEC 29:50) Height 172.72 cm (DEC 29 07:50) General: Alert and oriented, No acute distress. Airway: Mallampati classification: I (soft palate, fauces, uvula, pillars visible). Mouth: Within normal limits. Respiratory: Respirations are non-labored. Cardiovascular: Normal rate, Regular rhythm. Neurologic: Alert, Oriented. Review / Management Laboratory Results Plan [employer]#( A) physical status classification: Class II. Anesthetic Preoperative Plan Anesthesia: Monitored anesthesia care. Anesthetic plan, risks, benefits, and alternatives discussed with the patient and/or family. Patient verbalized understanding. Informed consent was given. Consent was signed by the patient. [Electronically Signed on: 12/29/2022 08:45 EDT] Jalen Hagan MD [Verified on: 12/29/2022 08:45 EDT] Jalen Hagan MD Normal [facility] Inpatient Patient Summaryon 12-29-2022 Inpatient Patient Summary [address] [address] Patient Discharge Instructions Name: JELENA BINTA SAAB : 1980 Patient Address: [address] [place] [address] Primary Care Provider: Name: JEROD DELEON After you are discharged if you find you have any questions, please, call [phone] ext [phone] to speak to a nurse. Discharge Diagnosis: Anterolisthesis of lumbosacral spine; Lumbar spondylosis Prescription Information: If you have been given a prescription for narcotics, seek immediate medical attention if you have any difficulty breathing or any sudden status changes such as confusion and sleepiness. If you or anyone you know is experiencing suicidal thoughts, mental health, alcohol and/or drug addiction problems; contact the [facility] 25/04 Crisis Hotline -Text 4HWSS ie 662704. If you received any narcotics, sedation, or [...] business decisions or sign any legal documents [facility] would like to thank you for [...] for Disease Control and Prevention [facility] Pre-Op Record Summary Primary Physician: Sarabjit Blanco MD Finalized Date/Time: 12/29/22 09:18:18 Pt. Name: BINTA GRAVES D.O.B./Sex: 1980 FEMALE Med Rec #: [id number] Physician: Sarabjit Blanco MD Financial #: [id number] Pt. Type: D Room/Bed: / Admit/Disch: 12/29/22 [...] Signed By: Namita Roman RN 12/29/22 09:18 [facility] Operative Report - Surgeon/P reagan 12-29-2022 [...] on: 12/29/2022 09:03 EDT] Sarabjit Blanco MD [facility] Patient Handouton 12-29-2022 Patient Handout [facility] Test Urine 1on U Preg Negative [facility] Comment on above: Performed By: #### [id number] ####[facility] (DEFAULT)[address] [place] [address] U Preg Internal Control Pass [facility] Comment on above: Performed By: #### 3 [id number] ####[facility] (DEFAULT)[address] [place] [address] Progress Note - Provideron 0 12-23-2022 Progress Note - Provider [id number] [facility] Progress Note-Physicianon Progress Note-Physician DATE OF [...] to proceed. Sarabjit Blanco M.D. JOB #: [id number] ul [Electronically Signed on: 12/27/2022 09:06 EDT] Blanco, Sarabjit MD [Verified on: 12/27/2022 09:06 EDT] Blanco Sarabjit MD [Transcribed on: 12/23/2022 09:18 EDT] [facility] Coding Summaryon 12-16-2022 Coding Summary HTMLBase 64 EolllrwcEJp1yQc+PGhlY WQ+ZY2XJBZoU91lpZWznD 8CF7bNGY4EWWPXNMOFEZ7 SVH4olCF9HFrvK7GipsZt OmnamQDqQO49BZc0ITA1y BvjVWrxpQ4pwBFjO1j6Pi TxXE16sL19RFpnPEQlVsM 3LjZpbjsgbWFy C7iaVlKpnQWyZdp+PHRhY mxlIHdpZHRoPScxMDAlJy YlkRabAY1jAn6vXCEaHRG vbGxhcHNlOiBj v1vuUCEkSTucLJ5leEvdC 0QvxMX1UKXng3y3Xo86nY I+UQQrQYB0nZlzECvhr87 9GpRtt6phDLS4 kCUiFPuwBVD0O19nz5O4G WKtGOSdJZG7xFY4bX2pqX jvxttxP6LmmEGdErK7SCE 6kIGfuY4xyEfj hqllkT3fNnc+M28FDS0CZ JJOCQ3YVrc8Q2OcXklqjR I+AT27BPHtQL90rKZkjYA fi2kcyIo5VwXp UDNnKZF3oZiwWFzdz1ZrY DWsB74xkXBuk0L7SDZecS gmeTGbFsYinWR7kR4cSWt fbxeiq2googii Zsqzz2vclm62sE49L25yM IctPUFtAUE9WXGiBHVnlE eqmk2vgQ6lGt8+GNmyk6s ah9qfvWs1BhWc ALTzrjSkcEugJSK7s4JjM c75R5CayOmcp8YxQfm6nf 27zUNwi0U6dJD8VUqmCWY byS8vXDgbPdZ4 ZPDbJoHpdM69rGQhVNwrE l4wpJdryXrrFF5vTWAnss jgNEEfxF0lKDAsdDJlqDt rCP2sRRGpelza z321DxLqYTE7WTOxtIOuW 9GnhA1sYqFxILYeXHVpY4 LatHFkBJuxJ647WHcjCxE 4RQVrjpOzX3Ry UFVphIluNsO1g9S2Jt7Xk 9MagxpjSEY0FTmeKHLsVw R5HcMrEbO5S9XeUld9JVI zeJhuPU9xG9Gg IKUfsjdgemhqcVV6YKZlQ ZPupE87qXFfWGasUr8dl5 N9z202HPBsXLGqjC60Gk2 udDogMTBwdCBU rK3xqrwgo2vuumykOdXdG MTrGQn9HYb1XMRloVezYh NaQWL3DqX2WFF5uQEirO1 noIhdfpptsY3s Oyc+E71vtK5bLAS2FYK0e kyhKGGgtbXqPW66ZM21L4 RyPjwvdGFibGU+PGRpdiB toEbiED0tCgMs f9nge9IqIZoaR4RyLEMjR YytSfs8LHXyOZB3dGJ0kK 2nPSGuIDlsx5E2lDL1A1Z jqxJlyl1ft4dp KVIbJDnxC78gcPNrs0F0G LIiiBY6BQUtkIisPfMxsC 93Oyc+MQEyuTkim8SqVyb jy5ssp1hllWl7 DpHeJFRhpiHvbLjxNOR5m 9JzJd77U46vRRlvRCPyEB PaMPQuGZQwiMrvzf2puI4 wIi8+PGNvbCB3 rVJ2kU5cJXThAfP7LOiuP 506IuZuoNFvKyshk1nfl2 eixJu8HbVsJCXgmuPyrKv sSGR0b2KlRh35 Z86pWZwzZLVeAKLkVLRsC DAyaTsoac3bjR6tTk2+PC 7bh1eiln33hA01bVC+PHR wAHT1aIwpKTyd BCXdnL7jYVsmHvM6KPYqD dAggA18xXZkUNbfIu3wuX vekRfvXY0fAUUtwxxoj19 2ZmIzt8ujQIOa pDWaMHmaANB6R48vz4T0S LVrIBGuFPY4rFX5xQ1tzX lnbjogbGVmdDsgdmVydGl mCEzsDMijM886 IHRvcDsnPlBhdGllbnQgT yIsNUm8H8DkQog2XTPhiH snPO9yzLDdNVcnJk2lfHb gyWovBN3fNSFq owiiv638AmJix8msXUQxu NHtOBspPVP5K62po7D2DL XbRZPfKQS7tII5iT3nmCs nbjogbGVmdDsg alAxeJdcGVplDOwcF211V HRvcDsnPkJpcnRoIERhdG W8AE00LF23sVObb5F6aVJ 9K9EkRQNnolao muewcAM5EMUxIFXsoL27C n0udVgqYh5nFJSuGYW5EQ PgqKJqZ9KxjU3bTgTyFAL lNQGcH5OokMUd EAsqA265QKumEvG5KITia gFeJ8GkSUCjrBnkZeY1l0 F5Tj4DC8L3QU96IL45aQB ey9B1lJU7V6Jf VJGrlbaxphjpbHE2EBJdJ FLrlL83Ji2paEoeFw8hZM AtBLA5FOSesRFeK7YzbH8 yOiAjMDAwMDAw N7OajWUuQVkmJ285YRerH pI9EHNvktNgN4ZvPWJqbL daIcF5o2G2Za4KOZa0VA6 2YG09uQFzb2E9 bXL4N3OmWIIvtffqszgee PA5YVJjQQBrcV94Uq8wlZ nvHx1lOPYsYRP3HHVmeAC uF3NutT0kWdBg XPMlDYDyI3TqmCLqRWspN 773KItaGrI2TFTlqvGuU8 AqZXKbsYkgStM2o5I5Xf7 TYIZlRM89WFD9 rHV7JH56LC96M6EyZsmsy GFibGU+PHRhYmxlIHdpZH RoPScxMDAlJyBzdHlsZT0 nWw5sFUToCYLs cQpljZLmAhYma6qnJJUuK VpzZI4hqNoqG4GwjLL3JE Ewb1y1Fk00S43cL4CgfFV +EKSxpLQ1rMC7 gQ2rGlHhFgJ5WZkgH998W qCzjEQrYeznt2ykw8ukgJ z5NkV8DCUcyoWdxSdyEEL 4r7WgAm49E34d IHdpZHRoPSIxNSUiIHZhb Svhic3osL5mLa9+PGNvbC K0nHR8hD5nWwLgDtH0GWg lJ333GuRztIHh Orijj7hyt2mcjMg5OdRaV QHpyeXmsTubLOR1q5UsNx 92E6ImuAvsq2JnPru5yv0 7aQCdi4T8iEU5 N6IfUOCrggqlzWVpjYxgE R5iTBSqhattCIAqxI7vCF OsB9s8AuVxYpU6ACeeQ1K isbQ0DGTsdVQz SXroOZE2U17nu1Y1DKOpK AWgTYH6cAV7jN0heXtnwp ogbGVmdDsgdmVydGljYWw jKUwkL669RGTi jYdaCWUxtY3xHBIagDSii CfvEI2yIIPtxwchWn4VFt RJTiwgRUxJWkFCRVRIIEF OTjwvdGQ+PHRk SAU6tXcfRCtkMLChxQ9mO SJaH3i8BcQhTkX7NJgmB9 BvPNVufdvoBu35cG6jPdJ sLwJ5ZQlyH1Vd laZ4ELIldVOeBZxcXSU2J 86eh1X3SLZoSLUiOYR5qP I3gY8wzBehsjxmgRVniEx gdmVydGljYWwt XYazW699JYWwpZxbGpB0M fGxMiO7GCF3I3UqMhu8IR KysLapQN6miIWjCIcjDv5 juQndbPqrSJ7e ZICysaxzCPQpxI2tQLXxh LHgyFnlXW1bSRFdikbkz0 70TpPjBTF6TTFznKQqU8R mdB6gWrWbGHQy IIOeU1TnnSIiSAjaE353A CawBhJ5XTMqeyQbB4XrHG WilEksRfO0j9D1Xv47FzX ZZWFyczwvdGQ+ JWWsXEK8wDneBZejWPEye G7tLWFyI3f0WvYrGyR2EL byW9VlFYRiksnjXe34fZ3 wPqStUqH6WIbo K1YxfoW5VQJygDBiMMnxN RB2O67jy2P1WWXqTRBeBO O6dQB4oI9jfPpaxfevlVP mdDsgdmVydGlj IBdyTIovW982EJHknLkbU kZFTUFMRTwvdGQ+PHRkIH V3aZspJUwjEVCdeX2fDPI kB4v0EoEvHnT5 DYhwH7AtZOYnhxmoKo10e V4zAlOmFzR3OLprU1Uuxp T0MPZtsVKvPBygXKZ7J70 kt9L8RJKqHLBj VPR3dWE8kW3fcSgjxmlwx GVmdDsgdmVydGljYWwtYW ivO732CKNpaVqlMvGuhLC EiYMrMFX3NN10 NL71X2VzZhyfpREsmCS+P HRhYmxlIHdpZHRoPScxMD QrGdFbqYsfBJ8aSz3vHXS yLWNvbGxhcHNl JxNkk3moTIFdFIhdRO9bm JbzF8AutXV3BGNyl2h0Fr 51G09hI4FyyYC+PGNvbCB 4bBE4dO0iCzQl EbM5IMzxJ519SyGttYNhL tgto1taq9oqbCr8OfPxIM ZabwMecNrxJSZ5q2FaVd4 7M32rKPjeNKRw ZJXvBZUhAHMcsWgmrx8tn G9wIi8+XVXbmOK3kUS1zQ 6tIiMoMnX3XMbnB873NmU saPXuJwjnI84u N3TizRZ+GSUvTyt1NUMda JtsDX7roJVnSOrkPr3hGD A5CeJuSzFbIEbfF7FrABU pbmctcmlnaHQ6 ZPDgNRRorB24Pu2tjSjcT h6dYIEyKPW4PUTmbRZiJ5 GoaH5bMfFpAUGeRTXsR5G wqHHpNFyhC450 PVhyGeY7AANnxgPdX7IsA UZfpAzkHeG9z7I9Uo2SaV balDDwGP8yVuUqJDc3J8T yWku3EUOptKcj HU8qpXJhBRbvKu3isKlcd SxaMD7xLDRidafaj871Mj Gsd8ipYZEneVJuBSobEEJ 5C29qv7O7HHZc JCOxFGA7bNG3cM6xcEbhy jogbGVmdDsgdmVydGljYW gtDAymL010ZSNreRmnGvH KSmf1K6FvKhp1 XFAloIfhXF4xuXLvZDjwZ j4zwIabbEhwBI9iPXVsuk kdh640KzQut8yvMMOkzUZ nOJxnXHL5Z23s i1E8VXCcXPXzWXU0yOW9j E1fvQsdkqqhlJVfqJmpup GqoXyoOYdaSVffD245FNY crYudQk4YRjk2 Q6NgCfl6XULpyJrwJD5eb GEsZJtoKl8poQcskKslRR 6lMBOdrmbdl064ReVay0i kIDEwcHQgVGlt RNX3Y36kd0A0QJApBXOrJ YH8rYU9vO8adTjpwzviaG VmdDsgdmVydGljYWwtYWx iR954NEMkmHlh PlBheWVyOjwvdGQ+PC90c j71X0XnMxpnYlz9GBIcTH G9qZZ3zQ5aEDOqDDywx5P 9sSM3O1YmhwVk ci1 (more content not included)... [facility] Consent Formson 12-16-2022 Consent Forms [id number] [facility] Inpatient Patient Summaryon 12-15-2022 Inpatient [place] [address] Patient Discharge Instructions Name: JELENA BINTA ANN : 1980 Patient Address: [address] [place] [address] Primary Care Provider: Name: JEROD DELEON After you are discharged if you find you have any questions, please, call [phone] ext [phone] to speak to a nurse. Discharge Diagnosis: Anterolisthesis of lumbosacral spine; Lumbar spondylosis Prescription Information: If you have been given a prescription for narcotics, seek immediate medical attention if you have any difficulty breathing or any sudden status changes such as confusion and sleepiness. If you or anyone you know is experiencing suicidal thoughts, mental health, alcohol and/or drug addiction problems; contact the [facility] 25/04 Crisis Hotline -Text 4HOPE to 795802. If you received any narcotics, sedation, or [...] business decisions or sign any legal documents [facility] would like to thank you for [...] these instructions at home: Medicines ? Take tyep-ipz-vkkaniv and prescription medicines only as told by [...] your h (more content not included)... Normal [facility] MAGR Intraoperative Recordon 12-15-2022 MAGR Intraoperative Record MAGR Intra-Op Record Summary Primary Physician: Sarabjit Blanco MD Finalized Date/Time: 12/15/22 09:41:51 Pt. Name: BINTA GRAVES/Sex: 1980 FEMALE Med Rec #: [id number] Physician: Sarabjit Blanco MD Financial #: [id number] Pt. Type: D Room/Bed: / Admit/Disch: 12/15/22 [...] 3 Case Attendee Sarabjit Blanco MD, RN, Gail Cox MA Role Performed Surgeon - Primary Travel Sales Consultant Travel Sales Consultant Time In 12/15/22 09:17:00 12/15/22 09:17:00 12/15/22 09:17:00 Time Out 12/15/22 09:28:00 12/15/22 09:28:00 12/15/22 09:28:00 Procedure Medial Branch Medial Branch Medial Branch Block(Bilateral) Block(Bilateral) Block(Bilateral) Last Modified By: Carlo RN, Jacqueline Matos RN, Jacqueline Cedeno RN 12/15/22 09:29:40 12/15/22 09:29:40 12/15/22 09:29:40 Entry 4 Entry 5 Entry 6 Case Attendee Eveline Chen RN [place], Froy Lindo CST RT (R) ARRT Role Performed Travel Sales Consultant Scrub Personnel Missile Inspector Time In 12/15/22 09:17:00 12/15/22 09:17:00 12/15/22 09:17:00 Time Out 12/15/22 09:28:00 12/15/22 09:28:00 12/15/22 09:28:00 Procedure Medial Branch Medial Branch Medial Branch Block(Bilateral) Block(Bilateral) Block(Bilateral) Last Modified By: Carlo RN, Jacqueline Matos RN, Jacqueline Cedeno RN [...] Agents (Im.270) Povidone-Iodine Prep By Vida Figueroa RAIL CAR OPERATOR Prep Area (Im.270) Back Prep Area Details Bilateral Skin Prep Agent Dry Yes Without Pooling Hair Removal Syntegrity Hair Removal Methods No hair removal performed Outcome Met (O.100) Yes Last Modified By: Jacqueline Matos RN (more content not included)... [facility] Pre[facility] MAGR Pre-Op Record Summary Primary Physician: Sarabjit Blanco MD Finalized Date/Time: 12/15/22 09:34:52 Pt. Name: BINTA GRAVES /Sex: 1980 FEMALE Med Rec #: [id number] Physician: Sarabjit Blanco MD Financial #: [id number] Pt. Type: D Room/Bed: / Admit/Disch: 12/15/22 [...] Signed By: Sharon Epstein RN 12/15/22 09:34 [facility] Operative Report - Surgeon/P reagan 12-15-2022 [...] on: 12/15/2022 09:27 EDT] Sarabjit Blanco MD [facility] Patient Handouton 12-15-2022 Patient Handout Orthopedics [...] these instructions at home: Medicines ? Take wmdi-ggs-jeopypp and prescription medicines only as told by [...] sugar if you have diabetes. ? Take lcjc-ogj-pnhxzpn and prescription medicines only as told by [...] provider. Document Revised: 06/11/2020 Document Reviewed: 08/27/2019 [employer] Patient Education ? 2021 [employer]. Normal [facility] Test Urine 1on U Preg Negative [facility] Comment on above: Performed By: #### 3 [id number] ####[facility] (DEFAULT)[address] [place] [address] U Preg Internal Control Pass [facility] Comment on above: Performed By: #### 3 [id number] ####[facility] (DEFAULT)[address] [place] [address] Coding Summaryon 12-06-2022 Coding Summary HTMLBase 64 HcrbdbgkZOk0fVw+PGhlY WQ+WM7WHLGcG12qiVOcaD 0BH4oXCY9CEGNWKLAZDP0 OUE3jgAV3ZHepC6CwllRn EgelqWEfEC40AEx8YCH8e AveMFlhwN3idQPuJ5k0Tm JbUM97zF80GUnvZXXxTiY 3LjZpbjsgbWFy Y2twRaTxaUGoOcr+PHRhY mxlIHdpZHRoPScxMDAlJy XtjOgySD3hDi1zTTGgDIB vbGxhcHNlOiBj h2ddMTWcHJkrVU6psDzrW 3BnoTY6YSIvg7u2Jz41iR I+ISZyGSY0fEcwOEaip90 7BrDwf2jhPQL6 dJQnLYudQAO6N01zw8L9M DXnGJTgIGV5nUG7tC6coC haqtgjD6HugLHuCjP9HDO 0rSPjnN7exDic ibzvaT4nDtq+C41BDV7NX ZMKEQ9XQiy2X3KmMisauO I+QP66THQwNF66lGZhoQB ie5gmqSb1IyZn QHCrKZT8hNkcFVvhn2NpE IIoR80qeWYdd4Y5DVHgyA ygpOAyXbJfsZW0bR4nLHm zboanb3yoxwtx Miior4ozws94vQ66X82oU QpbDXKoQJC9CPBjIOWksG iyfa9quP5bZz4+WOpjk2l op4zsnLm4ZsOn TCDefqQynSwpFGS9e0DhR b35W6TazSygt3UdKqf2ou 08rALel4Z6eRV2MEqiQTG tdE2nNNuqFlZ6 ROGpKoMddN98xSMrNVssX b2wgVrtxMaxWW3aHHLbnx oxXUElvB3iVSDljYOjeEj nWB4uOMHakwpu g404XzElPEZ3ZWIduMEsA 7AtpE3bRsLoVRBcHQMaB8 LotQMeSEvnB795FGmaBrV 3KIIfieTvF8Td MLLhwHmvFyX4e1C4Dx0Cq 6MfdvzuQTK2VDybKCLkEw K9BzUwYyJ4C4RgCda6GFG vyDzmMK5wY4Ay MCKxezjhxdfwdOM7XYAiX CTasU80rMKpSCmjBh4gi2 N5e654NTQsFFLdcX50Ys9 udDogMTBwdCBU iL5xyvttv8rdvaalOiScW JZpHFj1KXg4XQYyoIqxDd HiHAL3SfS3YLZ8fWHtvW9 afAnetqgamJ5y Oyc+U12ssR5lIRR1EGG4c opiWOMldvImVL32QU12K7 RyPjwvdGFibGU+PGRpdiB qxWzrTI9lLsAo n7oit3WwBCjbJ2NfQEEiJ UmlWao0DQFbKJC2vNT2jU 7hVBIzFKwuf2Z6zGI4V8E xffRkzc7cz6fb YEAnSCfvJ59sfXGpw5N6T FOarRL1TCShbYxhNjIcfB 93Oyc+VKCkkOdpx6IeZdr eg5eka6wfpCz7 VtOcJTKeqnDqtRmzJJZ7w 5TzHh37Z25xGKfrDPZoGZ SqAAPoCLSveJjpfy3gbT2 wIi8+PGNvbCB3 cCZ0zD6zMUVrCsM9PFmbC 519TuSwiXTyTchcc3sis2 mduGo8CwIeVJPlwaJcuVx rSWN7r8KnJp47 O00nELunWQOkXVJyBKYcC XBmeQxkvi2emX8mAn4+PC 9mf5fhvx34tU94rZH+PHR fXDD4lOagPXxg TTXhzP9hYSigKhW9XFYiZ aWbuG70jBWlNKavSr4uaJ pfnQqlVY3wGTAknewxb76 8CqBhu8miMOAt zVRaUAxfTJJ6G75fk5T6P QDvFNAbGQP1tGO2uS4ihC lnbjogbGVmdDsgdmVydGl bWXoxFFzcS936 IHRvcDsnPlBhdGllbnQgT kReACc8J4SuNaj6YHPkdH dxYX1vhVYsZJqxFw0zhMv jdGngBT3jOVOj xjujv166EyVpu4ynIUDuq SJeKNbzHKV2P87fu4H6NU WyTMKwLYK2zCJ5yA8zfSh nbjogbGVmdDsg kzOfkKvxALvlZGgzZ018P HRvcDsnPkJpcnRoIERhdG E1EJ49ZD54gJJfv0R1cTO 9G9PuMIAgcqwv dhgsgAB9HHSbYYPmlO28O b4qeSkyBe7qRCMgKTR5IL KxuWDxQ3LhuQ2hFdTqUXL uXODuJ5FsvKCk XTfuE935WIpkIuW1AAIfq gHnE2UrELOfdZcdIwT7a4 R9Rn9HX9G0YU85SH55bPP ws3E3jLW1R0Se CIQvgdzxuzzppRC4PYVfK LHwvD99Kk5grVeeAz3kEP ScGCX1YEMsxXRaD6VtvQ2 yOiAjMDAwMDAw S5LwoDBrWHzsO673WQocS xC6XCZpbtTdH8YpPSHftK sqIbT2a2Q6Lx3FYMv0TS1 6NO54jGCqt3R4 kJO5X5ZiCDOdejactnfff YL5VPNpPNZdjZ86Fd3dvP aiOo2uWMMbKWG2XNOnvWR sM7DzjQ3kBcLp SKRzYRVzG3ZbcMGgGNwuU 751CYkyUcD6TGIobeRoG7 EsOOOmlFuaDtH3v5W3El0 AXIIbCM32TXL0 nWI4VD88AN26U3FeMvbgr GFibGU+PHRhYmxlIHdpZH RoPScxMDAlJyBzdHlsZT0 hHt9uCFIvFLHw eDqswKPnCqXwz6tqLURmP WotHU7pwFamO0OhkOS1ZM Qtn9v4Rh00T31mE5YglAL +LSBfmDY9kAE2 uM9dEfYuYkR9VEioR573C pBcjEEfZwxun9yog2paaC f7FoV1VXZwxcHzfUtrIWE 9r1VuXy71W35h IHdpZHRoPSIxNSUiIHZhb Yqcrz3vqN3jJi9+PGNvbC L1jSJ7pY1fJmWxIzZ8ZDl oR437BlBbePFe Amshe4gcn5dscSr5RoCgO JRqpuIriViiDDQ5x5CjZw 78E7HokKctx7SjYxq4ko2 6qESyu7X4kSC1 H2QkZSJwvgjfuTPcdNsvU S7oESUmomrqFBUmtR4eTN DhS5x9CtJuItW3SGhyV4S jliU7UQXpjIOf VFxlYXA6J48ml9W1ECJfT UArKCC1cBW2cE8brHhpcj ogbGVmdDsgdmVydGljYWw sDMxeU975VJPz cTybHRZvjF0aEWUktZJrd OsrEO4uQZZqnllrQv7VTc RJTiwgRUxJWkFCRVRIIEF OTjwvdGQ+PHRk CVY0fCzqPWeaOFPmqQ6iR ZAsY5m0FzRpMrD0ZJwnC6 FgBOSiiywiOv22cE2rQtQ aXqP9JSnuX4Ns fgT1QDRhhQMiOIvxRPR2E 42ir8A2SUPrFEGaCYY6pD P4kD9xkUlpoarvwHJwnMh gdmVydGljYWwt ELggI659CKUxhFfzIfK5S gYiIkZ1BPP4Z8KySor5LC GrpRzsRJ5ooWGnBPgmRb7 moQjwrBtmDE9l DFJgccacKHYrqB7yFFPuy SLaaIfqQJ9gCPUuiqqwk0 82DqZpERX6CLPwlPDoZ6D rfT4wRqKpMBLe XVUfG8HguUQeXWuyC263H IfuFiW7YLKtmpPdB4PtLP WuxQcuAzM8e0D8Gf90ClJ ZZWFyczwvdGQ+ NVTrYCN2yFwmXBafCLCrx C8rFOBaD7t3OqMdTgP8MD uvR5ZxYBMldjkiHt25dP0 mOzQkEuP4FOor K1OnloG9UNXvrXRaIKmaL JS5X82xg2W5TXSgNOSvXC J0aRH8iR2muUcrrbxytPW mdDsgdmVydGlj FJouCDdjL056SJDfkWafB kZFTUFMRTwvdGQ+PHRkIH E0wYtbLOffKJSgoE0jAFP zH5n8EnBjUwC4 DKeuX8WgIGMgcrqmUz37c Z4uWbNgJqK7YZcfN4Iyie L6JKRpjYYaCLmgCPQ8O44 jd6I9KGOxLBHy RUE2mJR0iL2ysWlgbzalv GVmdDsgdmVydGljYWwtYW djK053DIRhkXshWu2SVN9 7GD13F1TwYdph dGFibGU+PHRhYmxlIHdpZ HRoPScxMDAlJyBzdHlsZT 5eXv2pLLRbJJHddKzouWM tRyXmw2byZTTm VIwwTT0sbWlzG3CecZY7A KUia2z2Cr61H25qP9ZmmD A+IUCsbDK4iTU9dN7lUuN jNvQ1FAzcP386 VwZjqBBbObnvu7vpl5gkf Mh9MzLiHJIytwBtwWqrSA K4k3XvGh82D65uGXfnCWD oPSIyMCUiIHZh mJbnmx2joW6bCz2+PGNvb VE8sVW6zG9fJdYfKvH2NY qdX008JoMoyKZeSepnT95 pI7EukIW+PHRy Xqz9TAPykQasEC8ztTXfB DnxJe5fALI0UsBoFfHnDY srQ1HcCCIvtjofpnzgfWE 0SWUfGMHiuY67 Zf5ptSniLj3zOXAaLKR5Z JWiuIRnD6AxkQ0zGeEzQV FrTHJkD6StmWRbKHatC77 1COqeVvK2YKSk jnHrE3OwWQEuuHsbFdL1f 2A6Me3KyDycaMHaCB4qUa UsJGo8K0DeSsk5HXCoiDf uTK0ujCKzXLhx Yr9uvYonsHlmYV1lFULpr iosu354CpFkp3tzHGWidD TdBCsbMWG9O83df8N6LXZ iSHPlAUD3lDL3 hQ1fyRoloipwtFNzzMpjt gHzoOorEBiePYwaL024XV AkdMblUuXKXbn0C2AsVmp 9PECnxUarVD1x gDUqUPbaVy4drXjksEbkU Q4tRPBjoittl672HeUsn7 pwEGDzdLXfTZiaFWW1T64 oq3Z7RZWyGVHe FIA4lCJ9eR0fyBrigyyqp GVmdDsgdmVydGljYWwtYW jiW984HRKboVnpLu3TIyd 7M4JyHxy9JGZg sXcfFD1mfLWoUUirFl9mj QrsqIveOB2xGNXwdsxck1 04JtVuh4ajSCNlhGQoEVq eWRW6Z31xd5S7 FLBwLBRcRWH9qRO6eO2in GlnbjogbGVmdDsgdmVydG pwDAxbJSnzW423CGMcnSh nPlBheWVyOjwv dGQ+QX21nu03E8AvHfzjR mv6ZBDiLGE7eWE2oC1fBI GcSPtck0F5fFV4P5EouaV yip6ic6ogLIXh ZTo (more content not included)... [facility] Progress Note - Provideron 0 12-06-2022 Progress Note - Provider [id number] [facility] Progress Note-Physicianon Progress Note-Physician DATE OF [...] to proceed. Sarabjit Blanco M.D. JOB #: [id number] ul [Electronically Signed on: 12/08/2022 10:52 EST] Sarabjit Blanco MD [Verified on: 12/08/2022 10:52 EST] Sarabjit Blanco MD [Transcribed on: 12/03/2022 11:25 EST] [facility] Coding Summaryon 11-22-2022 [facility] DhyjqslbOFg7fBi+PGhlY WQ+IE0JTHMoI98ivBSwnC 8PQ9uRBP1VTYXGQNEDLU7 PTE6vyYW9KVvfX6VjbgHv CbxsnUVxVE63FKq8DXT2i DltAKscxW1pmRAhJ4l6Kc LxOI50fJ32BOiyBQVtZuV 3LjZpbjsgbWFy Y9rjLvLanXDkDgw+PHRhY mxlIHdpZHRoPScxMDAlJy LheFhyIN7tZi6xAPLpLYN vbGxhcHNlOiBj u9nbQCCbGKflFO1sfCynE 0UigWU0ZFTkg3o7Qh26eI I+IZTlCFB0iCmiYJvdi90 1KkRvl6ntBVU7 rTCaDRrfKEJ5C08ml4P9Q OAaFZDvGJI2xMU6qR5dtX ubhrwxF6KewCUyLjN7AQB 9oLQsxQ1jpNqx itadaA0vPwd+A85BEB5RX ZQORR0KLbs9I1OlRoswfP I+KV23VKFpDR82gQJduON bd9vanCy1LwNx SMMuIBP8lTjpNVomi6ElH MBrW20ceXJpa4E3EZQneK shgKXoWgHltVO4mM1dHTw lqshva9dkymcj Aaozh9saeh91mV42N14aC UwnHIPiXZN8JAEfNBAxrI zjau4dkY9yEw4+QRjxi3i en6xqfWr7GvIu JLQdmbVaeQaqYAA1v2MgY a70I0JgxTzda3UfJzx8nc 77hLKpi6B6aDA1DDsbIJP qgX9uWZgiPlK6 PBNqBnLlgQ99oQIdSXszC h5njIfbyCrmXA9dQOBgzw gkPVQtjI7tFCFkkRJcdRp nXB8tCEXzglbr l708WkWaNIH1XPKrmGFdT 5PgeR4xHvPzOIXaGKPeV7 StzOYrPAfkF389NWojUrW 0RIDonqGgQ1Db UZJcfTnrPrL1j6P7Jl1Na 1JlvqbnWDI3NBnoFIPiOi LdDdJgPzJ5N2WnJzn7YZJ uoJapEJ4dM7Md CWXmtxrchqaydCA9JJXnP NDwmN39lZWwQOuvWp7ef4 S0j905ZSCxGGIgfM20Hw7 udDogMTBwdCBU rP2ooiksk4tgpljhUuMnT ZHbKKy5BVj8IGLeaYogUw AuKVJ1RzT0NTF9pRCdfL6 tfKckbliekT4b Oyc+R91zpH4yAZY7UYJ7c aejDENarvKzLS61PK92V2 RyPjwvdGFibGU+PGRpdiB gsXnhKU0tRtMs n8cmw3PkYJfhQ6AhUDYqT TwiTgr4LVNgTBQ7vXW0jY 4fLEFhIYbdy2A9cLO1Y8U obxOwbt0hh3mj UAUkZBmgQ57adXQbq3S6G GOhgTR3MEYgiNmwCqEdlE 93Oyc+XGKulTrak4ZyMfc gk9mzg8yozXw6 RiRtXLRnawLwkLsfJMN0l 8IfIb38D20eUHuaQPKeNC AsLUEvFJQybFbnzr9owW4 wIi8+PGNvbCB3 kHN7lV0oIBMqHoF0MUclN 713SxEikSEyOavvh1kpn5 acnJr1UwGgMPNaahLyiUz pYDP5u0IjKi46 J38tGCzbCZHqUUEtLIAoS TGodUfjtu5ccH9xMw6+PC 1lq4tsqr25sW78jEY+PHR jIPQ1yUwtDHsq GUEiwI6wJJvqYoC0PPVcP pQclF74aGElDCjbTa9rrT qxvSesDO7zHZGccbwht43 1PeLpe4fyDEFo yGIvPUsnIRR3F53xv9H8Q NBeQHRcBEO2gSQ9gZ6kdN lnbjogbGVmdDsgdmVydGl oUShrHXfaX945 IHRvcDsnPlBhdGllbnQgT gBuCCr2K3MkXti6CJPvvS pyQT7uqYLhVBemPj2rfJq baRkgIT6mTHVm leojd043ShLuv8sdPAKxa DIyDIkhDFV0B16nw9C0GX BgZVWiNKX3jYR6qD1kaWz nbjogbGVmdDsg ilDusNvnNRxaFSpwS165B HRvcDsnPkJpcnRoIERhdG Z7ZN02RJ97aPQmh8N9gFU 5P7YtQYZfpuhd ppiptXW2ZOFcYGGztY95Z i9znNnqSu9iBLUtIVM3BP FrdNMtN5LocN4lBsAgFYM cALPqA3DwiNMw YMjhC798HTpdFqU1DFXtf fLkK0DtNIFjjIgvRbN2h4 Z7Ge6CV9K5RJ41WM20lSF vh0D9dDE6M9Uq CZNdynsimffpiJN3PCRiA GEeuU48Bh6kdQniTk1gOC RkSBL3HDKqyYEmY6OryU0 yOiAjMDAwMDAw F2YudRGrWImiT546BVdlM bG0PTSstwHxZ0ChYZKfaJ bySmL6a3Q9Nn6VHTg6XZ3 4HU16tIHma3E5 tVM4U8VrDNMytskmpvwnj SL0XNXvIOByxN28Aa1mmL xtHf4uUABhUWF8QCRkqMO fB6HflQ4oEkPv FSLiIEGoN3NaqDKmREapC 000UYggGoT9QLAlhrPkY6 RjPBEfbZolHpD2t7K6Ih2 WZPZfIQ00EXM0 zZW1AW41WC52S4DqKbzvz GFibGU+PHRhYmxlIHdpZH RoPScxMDAlJyBzdHlsZT0 zHd9cJSTeLUTi qScnoYMzSpVyq8suHSYlM TflZZ0qeHdkT2SlkHG2DX Uen2k6Xi56Q46gT1WdpCG +JPVyiJB6pHV8 xB8qBdHkUdJ9DLgeS469E bVydXCuSgavr9frf9vmzB c4QxT3ZZKpiuLvdOimSTL 7d9YgIc15F85v IHdpZHRoPSIxNSUiIHZhb Bpark2iqV9xXh0+PGNvbC T0zLK3eB7xIiIzLfG4NRo bJ033OxHnkAWr Bjgrw5aky9obbNs6BrJqJ GKxcfAftYvjODC0t1BrKn 70L3QgyRilm6SuShm8vr5 5qVZhw9O9tTN8 H1UyWYZqejdfyNEkdLchI M2bOXWwbiipGJBweQ8uUO WeS2m2PqJkHwD1PThcT4O dtbT2HHCjxIKe LIvgAEV7L32up6O2OMEdL UXtLSB6nUA9bM1szHkhte ogbGVmdDsgdmVydGljYWw bLVzfV063SDLl sIvtIGDfeI6rJOBwgSRaf JtgMY8hMVUrlayjKa2GVz RJTiwgRUxJWkFCRVRIIEF OTjwvdGQ+PHRk KHZ9oYcpRVkvSGQtfB3lF NYbW4u6ZkXvCrF6ECueF8 UxRWDoibvqNx08aO2lFxP hEpL0XCcqN8Xy kuG6OWTaaZWuBCtjBGR6C 71fx7D0MAMsQPXcPDC3mP U3tV9btQnllfxeeHFofPy gdmVydGljYWwt HKsaF534TMVjkVznVlL7A bVzXqZ1AFE2X6AiIdo4PO QltVpeFE8eeXIsYBlrWi9 nqGmdsHzpJD6b WQPshjxxDEWnvJ6vCGRuh MAxhZvhBL7eTBLgbtcbo7 56DhHdWKY1WNNnyNXmP0J ilL0lIgMaMNVd JBCnJ9EbaFVoVHpfV605V VgoPvH0ZTOxazXjO9DkZL XloUfwYfO3o5D1Ou23JnS ZZWFyczwvdGQ+ DPBqASX9oMmlIKjaSSJhl M9sFLAaN8w9VcQxQsL9LZ tzL1QbFBCffhcbCx93vH4 sBnDxPxT2MLeq J3PxkfE7SUNmiXFzAYjjP TT6X49nx4V6BOUuDNWeXQ S9aDT4iN9ewWwlmamxwBC mdDsgdmVydGlj PIdhMJwlT924QVUnoRnrW kZFTUFMRTwvdGQ+PHRkIH W8rUuoWRqvOALlbZ5lYRE pV5j7FzDaGjU3 IWggM3OyONBdgfswUo19n R6dWnYzGyX3UJmzF7Ursb W3GPMbsCZdNSteQPF9J68 rb1M7UDXcQMSn CVP5xUA5pT5skCbolofbw GVmdDsgdmVydGljYWwtYW puN223EZVntPklWp2ZAY6 3PV78P4BsAbgh dGFibGU+PHRhYmxlIHdpZ HRoPScxMDAlJyBzdHlsZT 0gId4nYOUoOQRmaQikoLT aGiMhn8kaZIJx JKspZH8xhOjbL7MgeTY6Y BYqw4w4Wz44I40eP8OyxZ A+PXOwcHL5jXZ5eE5lFlS zObO1ENpqC375 XwZibEHdKxelq1nyn2pig Hp3DyFpXIZbqvBuyOqqHJ X0c4KhPu02E85zHComQMG oPSIyMCUiIHZh mGhmig3osQ2pPi6+PGNvb VT1rVU5cY0nHiKdWwL8RW feD661LjAwtWBqCfpbE15 iF3HiiJB+PHRy Xqj0BMNteLibKP1vbVNmC AzwHz2qGUM5UeUjNhXiKF qeA5DxUGEtjkdsyozpdHG 3QULdYSBiwH92 As6geDesRf9qYKXpOVZ2L FTohEQmE9IhnG0xJgDnXJ PzIVTiE8SfcHQgIHkoG36 6MNrdSvO6BUUx nuOyV7OaIOUslOiuRrN9z 0M9Qk4HgBlffPNfLB3qXq MdPRn5R8XcWpv9YCQylGs jZH0ehWRtQXox An9ugUngnXndAM9oMJMod nurf513EhVqj9izTHDpfO DvZFpmYTK4R07yf5O9IRJ zMLEaBLQ5pFY3 cQ9qsXpvzqcjmZRexEral cKnaBucWOkrDIewT779CL EmcIqkYiJGZfw1X6CpBxl 2PDWgmAlmZK2d sBGsGQkrBi6fjHuywTamT S6rVLCmobjip863FiQwk4 dkXHMudMXeBMrrRXO1M12 fd5H8CNArKVOz VVH8iSW3qM5geVuiszvxk GVmdDsgdmVydGljYWwtYW fxF837YIRoxKoeWq1VRzm 7R6UoLmi4JQOp hZszYL9waUZqFTomDj3sg IsqkZftLK2yZTLvluftq5 03BsKzt9rcIJUcsWBjPJo uMAU2D75xw5E1 FZPxFEFhHPU3hDA9gY9op GlnbjogbGVmdDsgdmVydG jxMUnvXNaaW177GWXmwOt nPlBheWVyOjwv dGQ+TC03zw11H2HrOcizH lg0VBDyBIB9pTR3sM0aUN NjFYcfr3Z0bAW3Q2HhhpB lto0ee1iqPFKf ZTo (more content not included)... 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 Approved by:Rosita Hunter05/20/2020 2:55 PM. I, Yamileth Barragan,have reviewed the images and reports Electronically signed: Yamileth Barragan. 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 Results are for the identification of SARS-CoV-2 RNA. The SARS-CoV-2 RNA is generally detectable in nasopharyngeal and oropharyngeal swabs during the acute phase of infection. The Aptima SARS-CoV-2 Assay on the [employer] and [employer] Fusion system is intended for use by laboratory personnel specifically instructed and trained in the operation of the [employer] system. The Aptima SARS-CoV-2 assay is [...] Reporton 0 Operative Report MR#: [id number] I [facility] Pt. Name: Binta Graves Room #: 5AB [id number] Discharge 03/09/2020 Date: Birthdate: 1980 OPERATIVE REPORT [...] Traylor MD Date Trans: 03/21/2020 04:34 P/chrissy [id number] cc: Jerod Deleon M.D. [address] [facility] [id number] Normal [facility] *MRSA/MSSA DNA NASALon 03-07 *MRSA/MSSA DNA NASAL Clinical Report: (D ) Specimen: NASAL SWAB Collected: 03/07/2020 10:30 Status: Final Last Updated: 03/07/2020 16:47 MSSA DNA (Final) Negative MRSA DNA (Final) Negative Normal [facility] Comment on above: Performed By: #### 3 1595 #### [place] [address] [place] [address], [facility] BASIC METABOLIC PANELon 06-0 Calcium [Mass/Vol] 8.9 mg/dL Normal 8.6-10.3 [facility] Comment on above: Order Comment: No: D o not add to previous draw Performed By: #### 4 1000, [id number], [id number] #### [facility] [address] [place] [address], [place] Chloride [Moles/Vol] 105 mmol/L Normal 98-107 [facility] Comment on above: Order Comment: No: D o not add to previous draw Performed By: #### 4 1000, [id number], [id number] #### [facility] [address] [place] [address], [place] CO2 [Moles/Vol] 24 mmol/L Normal 21-31 [facility] Comment on above: Order Comment: No: D o not add to previous draw Performed By: #### 4 1000, [id number], [id number] #### [facility] [address] [place] [address], [place] Creatinine [Mass/Vol] 0.75 mg/dL Normal 0.60-1.20 [facility] Comment on above: Order Comment: No: D o not add to previous draw Performed By: #### 4 1000, 33090, 60882 #### [facility] [address] [place] [address], [place] GFR/1.73 sq M predicted among blacks MDRD (S/P/Bld) [Vol rate/Area] mL/min/{1.73_m2} Normal >60 [facility] Comment on above: Order Comment: No: D o not add to previous draw Performed By: #### 4 1000, 46702, 35869 #### [facility] [address] [place] [address], [place] GFR/1.73 sq M predicted among non-blacks MDRD (S/P/Bld) [Vol rate/Area] mL/min/{1.73_m2} Normal >60 [facility] Comment on above: Order Comment: No: D o not add to previous draw Performed By: #### 4 1000, 38433, 78335 #### [facility] [address] [place] [address], [place] Glucose [Mass/Vol] 92 mg/dL Normal 70-100 [facility] Comment on above: Order Comment: No: D o not add to previous draw Performed By: #### 4 1000, , [id number] #### [facility] [address] [place] [address], [place] Potassium [Moles/Vol] 3.8 mmol/L Normal 3.5-5.1 [facility] Comment on above: Order Comment: No: D o not add to previous draw Performed By: #### 4 1000, , 06320 #### [facility] [address] [place] [address], [place] Sodium [Moles/Vol] 136 mmol/L Normal 136-145 [facility] Comment on above: Order Comment: No: D o not add to previous draw Performed By: #### 4 1000, , [id number] #### [facility] [address] [place] [address], [place] Urea nitrogen [Mass/Vol] 20 mg/dL Normal 7-25 [facility] Comment on above: Order Comment: No: D o not add to previous draw Performed By: #### 4 1000, , 65317 #### [facility] [address] [place] [address], [place] CBC COMPLETE BLOOD COUNTon 0 - Erythrocyte distribution width (RBC) [Ratio] 13.4 % Normal 11.5-15.0 [facility] Comment on above: Order Comment: No: D o not add to previous draw Performed By: #### 5 0608 #### [facility] [address] [place] [address], [place] Hematocrit (Bld) [Volume fraction] 44.1 % Normal 36.0-45.0 [facility] Comment on above: Order Comment: No: D o not add to previous draw Performed By: #### 5 0608 #### [facility] [address] [place] [address], [facility] Hemoglobin (Bld) [Mass/Vol] 14.4 g/dL Normal 12.0-15.0 [facility] Comment on above: Order Comment: No: D o not add to previous draw Performed By: #### 5 0608 #### [facility] [address] [place] [address], [facility] MCH (RBC) [Entitic mass] 27.0 pg Normal 27.0-33.0 [facility] Comment on above: Order Comment: No: D o not add to previous draw Performed By: #### 5 0608 #### [facility] [address] [place] [address], [facility] MCHC (RBC) [Mass/Vol] 32.7 g/dL Normal 32.0-35.0 [facility] Comment on above: Order Comment: No: D o not add to previous draw Performed By: #### 5 0608 #### [facility] [facility] [address] [place] [address], [facility] MCV (RBC) [Entitic vol] 82.7 fL Normal 82.0-98.0 [facility] Comment on above: Order Comment: No: D o not add to previous draw Performed By: #### 5 [id number] #### [facility] [address] [place] [address], [facility] Nucleated RBC/100 WBC (Bld) [Ratio] 0 % Normal 0-0 [facility] Comment on above: Order Comment: No: D o not add to previous draw Performed By: #### 5 0608 #### [facility] [address] [place] [address], [facility] PLAT CNT 194 10*3/uL Normal 150-400 The [place] Comment on above: Order Comment: No: D o not add to previous draw Performed By: #### 5 0608 #### [facility] [address] [place] [address], [facility] RBC (Bld) [#/Vol] 5.33 10*6/uL High 3.80-5.00 [facility] Comment on above: Order Comment: No: D o not add to previous draw Performed By: #### 5 0608 #### [facility] [address] [place] [address], [facility] WBC (Bld) [#/Vol] 8.71 10*3/uL Normal 4.00-10.60 [facility] Comment on above: Order Comment: No: D o not add to previous draw Performed By: #### 5 0608 #### [facility] [address] LUMBAR SPINE 2 OR 3 [facility] LUMBAR SPINE 2 OR 3 [facility] Department of Radiology [address] [place] [phone] Patient Name: BINTA GRAVES : 1980 Sex: F Age: Race: White Pt. Location: [id number] Patient Status: I Ordered Date: 03/07/2020 1:00:00 PM Completed Date: 03/07/2020 08:11 PM Requesting Provider: DAKOTA TRAYLOR Attending Provider: ARNEL GARSIA Report Copy To: Signs & Symptoms: L6-S1 microdiscectomy History: Comments: L6-S1 microdiscectomy Exam: LUMBAR SPINE 2 OR 3 VWS Intraoperative fluoroscopic guidance HISTORY: Microdiscectomy. COMPARISON: Lumbar spine MRI 03/06/2020. IMPRESSION: 1. Hardware projects posterior to the lumbosacral region, please see details within operative report. 29 seconds of fluoroscopy time, 5 images. Electronically signed: Moris Vegas. 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 Results are for the identification of SARS-CoV-2 RNA. The SARS-CoV-2 RNA is generally detectable in nasopharyngeal and oropharyngeal swabs during the acute phase of infection. The Aptima SARS-CoV-2 Assay on the Moshannon and Moshannon Fusion system is intended for use by laboratory personnel specifically instructed and trained in the operation of the Moshannon and Moshannon Fusion system. The Aptima SARS-CoV-2 assay is [...] 03-07-2020 Magnesium [Mass/Vol] 1.9 mg/dL Normal 1.9-2.7 [facility] Comment on above: Order Comment: No: D o not add to previous draw Performed By: #### 4 1000, [id number], [id number] #### [address] [address], [facility] OUTSIDE CONSULT NEUROon OUTSIDE CONSULT NEURO [facility] Department of Radiology [address] [place] [phone] Patient Name: BINTA GRAVES : 1980 Sex: F Age: Race: White Pt. Location: [id number] Patient Status: I Ordered Date: 03/06/2020 7:05:00 PM Completed Date: 03/07/2020 11:41 AM Requesting Provider: DAKOTA TRAYLOR Attending Provider: ARNEL GARSIA Report Copy To: Signs & Symptoms: NEED CONSULT History: Lumbosacral transitional anatomy CT of the L-Spine without contrast done on 03/04/2020 At the [facility] Requesting Dr. Dakota Traylor Comments: Exam: OUTSIDE CONSULT NEURO OUTSIDE CONSULT NEURO 03/07/2020 11:41 AM OUTSIDE STUDY: Lumbar spine CT scan TECHNIQUE: Outside CT images of the lumbosacral spine obtained from the [facility] dated March 04, 2020. Image review with [...] interpretation. Electronically signed: Ольга Johnson. Transcribed by: [email or web address], User Resident: Electronically Signed by: ОЛЬГА JOHNSON @ 03/07/2020 01:03 PM Normal [facility] PHOSPHORUS BLOODon 0 Phosphate [Mass/Vol] 3.5 mg/dL Normal 2.5-5.0 [facility] Comment on above: Order Comment: No: D o not add to previous draw Performed By: #### 4 1000, [id number], [id number] #### [facility] [address] [place] [address], [facility] POC GLUCOSE LABon 03-07-2020 Glucose [Mass/Vol] 97 mg/dL Normal 70-100 [facility] Comment on above: Performed By: #### 8 [id number] #### [facility] [address] [place] [address], [place] TYPE AND SCREENon 03-07-2020 ABO INTERPRETATION O Normal [facility] Comment on above: Performed By: #### 6 2586 #### [facility] [address] [facility] [place], [place] [id number] [place] [address] RH INTERPRETATION Negative Normal [facility] Comment on above: Performed By: #### 6 2586 #### [facility] [address] [facility] [place] [address], [facility] *SARS-CoV-2 COVID-19on 03-06 [id number] Not Detected Normal Not Detected [facility] Comment on above: Order Comment: The A ptima SARS-CoV-2 assay is a nucleic acid amplification test intended for the qualitative detection of RNA from SARS-CoV-2 isolated and purified from nasopharyngeal (ROUND CORNER CUTTER OPERATOR), nasal and oropharyngeal (OP) swab specimens from patients with signs and symptoms of infection who are suspected of COVID-19. Results are for the identification of SARS-CoV-2 RNA. The SARS-CoV-2 RNA is generally detectable in nasopharyngeal and oropharyngeal swabs during the acute phase of infection. The Aptima SARS-CoV-2 Assay on the Moshannon and Moshannon Fusion system is intended for use by laboratory personnel specifically instructed and trained in the operation of the Moshannon and Moshannon Fusion system. The Aptima SARS-CoV-2 assay is [...] information. Performed By: #### 3 1792 #### [facility] [address] [facility]. [place], [place] [id number] [place] [address] MRI LUMBAR SPINE WO CONTRAST on 03-06-2020 MRI LUMBAR SPINE WO CONTRAST [facility] Department of Radiology [address] [place] [phone] Patient Name: BINTA GRAVES : 1980 Sex: F Age: Race: NA Pt. Location: [address] [place] [address] Patient Status: I Ordered Date: 03/06/2020 6:40:00 [...] narrowing Electronically signed: Yamileth Barragan. Transcribed by: [email or web address], User Resident: Electronically Signed by: YAMILETH BARRAGAN @ 03/06/2020 07:54 PM Normal [facility] Comment on above: Order Comment: Spina l Stenosis, patient with left s1 radicular type pain - has transitional lumbo-sacral anatomy based on CT scan Encounters Encounter Date Encounter Type Care Provider Facility Start: 02-09-2024 End: 02-10-2024 ambulatory [facility] Start: 02-01-2024 End: 02-02-2024 ambulatory [facility] Start: 01-20-2024 End: 01-20-2024 ambulatory JEROD DELEON Not Available Start: 12-28-2023 End: 12-29-2023 ambulatory [facility] Start: 12-16-2023 End: 12-16-2023 ambulatory JEROD DELEON Not Available Start: 02-25-2023 End: 02-26-[address] JEROD DELEON Facility: Start: 12-29-2022 End: 12-29-2022 ambulatory [facility]3] Facility:[facility] Start: 12-22-2022 End: 12-23-2022 ambulatory [facility]3] Facility:[facility] Start: 12-15-2022 End: 12-15-2022 ambulatory [facility]3] Facility:[facility] Start: 12-01-2022 End: 12-02-2022 ambulatory [facility]3] Facility:[facility] Start: 11-19-2022 End: 11-20-2022 ambulatory [facility]3] Facility:[facility] Start: 12-31-2021 Transcribe Orders Stephanie Mesa [facility] Physician Referral Service Start: 05-20-2020 End: 05-21-2020 Patient encounter procedure Zayda Frazier Facility:[facility] Start: 03-06-2020 End: 03-09-2020 Evaluation and management of inpatient ARNEL GAVINO Facility:[facility] Procedures Date Procedure Procedure Detail Performing Clinician Start: 03-07-2020 EXCISION OF LUMBOSAC RAL DISC, OPEN APPROACH DAKOTA TRAYLOR Start: 03-07-2020 RELEASE SACRAL NERVE , OPEN APPROACH DAKOTA TRAYLOR Start: 03-07-2020 Antibody screen ARNEL SANTANA BHATTI Comment on above: Performed By: #### 6 [id number] #### [facility] [address] Plan of Treatment Date Care Activity Detail Author Start: 05-03-2021 [facility]enza [facility] Start: 2001 Screening for malign ant neoplasm of cervix Pap Smear [facility] Start: 1998 Hepatitis C screening Hepatitis C An tibody [facility] Start: 1998 Tetanus + diphtheria + acellular pertussis vaccine (product) Tdap Booster [facility] Start: 1995 HIV screening HIV Test [facility] Start: 1985 COVID-19 Vaccine (1) COVID-19 Vaccin e (1) [facility] Payers Date Payer Category Payer Unknown [id number] 2022 Unknown [id number] 2021 Unknown [id number] 1980 Unknown [id number] 2.16.8 [id number] 1980 Unknown [id number] 2.16.8 [id number] 1980 Unknown [id number] 2.16.8 [id number] 1980 Unknown [id number] 2.16.8 [id number] 1980 Unknown [id number] 2.16.8 [id number] 1980 Unknown [id number] 2.16.8 [id number] 1980 Unknown [id number] 2.16.8 [id number] 1980 Unknown [id number] 2.16.84 0.1.397071.3.579.2.1259 1980 Unknown [id number] 2.16.84 [id number] 1959 Self-pay [id number] Unknown [id number] 2.16.84 [id number] Social History Date Type Detail Facility Tobacco smoking stat [facility] Tobacco smoking consumption unknown [facility] Start: 1980 Sex Assigned At Not on file [facility] Medication management note 12-30-2022 Note Date & Type Note Facility 12-30-2022 Note [id number] [facility] Clinical Note 12-29-2022 Note Date & Type Note Facility 12-29-2022 Note [facility] SURGERY Clinical Discharge Summary PERSON INFORMATION Name BINTA GRAVES Age 42 Years 1980 Sex FEMALE Language Turkmen PCP JEROD DELEON Marital Status Med Service Pain Management Surgery Acct# Arrival 12/29/2022 07:38:41 Visit Reason LOW BACK PAIN Acuity LOS 012 22:22 Address: [address] [place] [id number] Comment: PROVIDER INFORMATION VITALS INFORMATION Vital Sign [...] spine; Lumbar spondylosis Comment: PHYS DOC NOTES [facility] History and physical note 12-28-2022 Note Date & Type Note Facility 12-28-2022 Note [id number] FF The patient has been examined and the medical record reviewed. The indications for surgery and exam are unchanged. [Electronically Signed on: 12/29/2022 08:15 EDT] Sarabjit Blanco MD [Verified on: 12/29/2022 08:15 EDT] Sarabjit Blanco MD [Transcribed on: 12/28/2022 14:33 EDT] [facility] Medication management note 12-16-2022 Note Date & Type Note Facility 12-16-2022 Note [id number] FF [facility] Clinical Note 12-15-2022 Note Date & Type Note Facility 12-15-2022 Note [facility] SURGERY Clinical Discharge Summary PERSON INFORMATION Name BINTA GRAVES Age 42 Years 1980 Sex FEMALE Language Turkmen PCP JEROD DELEON Marital Status Med Service Pain Management Surgery Acct# Arrival 12/15/2022 07:50:00 Visit Reason LOW BACK PAIN Acuity LOS 012 00:14 Address: [address] [place] [address] Comment: PROVIDER INFORMATION VITALS INFORMATION Vital Sign [...] Anterolisthesis of lumbosacral spine; Lumbar spondylosis Comment: PERLA GLASS NOTES [facility] History and physical note 12-15-2022 Note [...] Anterolisthesis of lumbosacral spine / SNOMED CT 516747378 / Confirmed Lumbar spondylosis / SNOMED CT 047967462 / Confirmed, Active Problems (2) Anterolisthesis of lumbosacral spine Lumbar spondylosis Histories Family History: No family history items have been selected or recorded. Procedure history: Facet joint nerve block ([id number]) on 12/15/2022 at 42 Years. Comments: 12/15/2022 [...] Gastrointestinal: Soft, Non-tender, Non-distended. Integumentary: Warm, Dry, [place]. Neurologic: Alert, Oriented. Psychiatric: Cooperative. Review / Management Results review: Lab results: 12/15/2022 8:04 EDT U Preg Negative . Impression and Plan Lumbar Spondylosis , Procedure explained to patient along with risks of possible complications and patient wishes to proceed. [Electronically Signed on: 12/15/2022 09:04 EDT] Sarabjit Blanco MD [Verified on: 12/15/2022 09:04 EDT] Sarabjit Blanco MD [facility] History and physical note 12-14-2022 Note Date & Type Note Facility 12-14-2022 Note [id number] IFF The patient has been examined and the medical record reviewed. The indications for surgery and exam are unchanged. [Electronically Signed on: 12/15/2022 09:02 EDT] Sarabjit Blanco MD [Verified on: 12/15/2022 09:02 EDT] Sarabjit Blanco MD [Transcribed on: 12/14/2022 13:35 EDT] [facility] Evaluation note Note Date & Type [...] Records Found Hospital Course Note MR#: [id number] I [place] Pt. Name: Binta Graves Admitted: 03/06/2020 Discharged: 03/08/2020 Date of : 1980 Physician: Arnel Garsia MD DISCHARGE SUMMARY PRIMARY CARE PHYSICIAN: None. CONSULTING PHYSICIAN: [facility] FINAL DIAGNOSES: 1. Acute lumbar radiculopathy/lumbar spine stenosis, status post laminectomy, doing well. 2. Essential hypertension, stable. 3. Polycystic ovarian disease, on metformin. 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 [employer], presented to the hospital with worsening of [...] Referral Specialty Diagnoses / Procedures Referred By Contac t Referred To Contact Internal Medicine Diagnoses Obesity, morbid, BMI 40.0-49.9 (HCC) Procedures [facility] WEIGHT MANAGEMENT SERVICE REQUEST LVL 3 EST PT, LOW MDM, 20-29 MINUTES Jerod Deleon MD [address] [place] [address] Weight Management [facility] [place] [address] Referral ID Status Reason Start Date Expiration Date V isits Requested Visits Authorized [id number] Authorized 12/31/2021 12/31/2022 10 10 Additional Source Comments INFORMATION SOURCE (unrecogn ized section and content) DATE CREATED AUTHOR 05/28/2020 [facility] DATE CREATED AUTHOR AUTHOR'S ORGANIZ ATION 03/11/2023 [facility] DATE CREATED AUTHOR AUTHOR'S ORGANIZ ATION 03/11/2023 [facility] DATE CREATED AUTHOR AUTHOR'S ORGANIZ ATION 01/21/2024 [facility] EPIC DATE CREATED AUTHOR AUTHOR'S ORGANIZ ATION 02/11/2024 [facility] FOR RECORDS PERTAINING TO PATIENTS WHO ARE [...] BE BASED ON THE PRIMARY CLINICAL RECORDS. [facility] [employer] [facility]. provides no warranty or guarantee of the accuracy or completeness of information in this document.
[2024-02-13 10:46] VITALS: BP 151/93; PULSE 108; O2SAT 97
[2024-02-13] MEDS: 0.9 % SODIUM CHLORIDE 10 ML SYRINGE - SALINE FLUSH INJ (10:48)
[2024-02-13] MEDS: BUPIVACAINE HCL 0.25% PF 25 MG/10 ML VIAL INJ (10:48)
[2024-02-13] MEDS: IOHEXOL 240 MG/ML - 10 ML VIAL INJ (10:49)
[2024-02-13] MEDS: LIDOCAINE HCL 2% PF 100 MG/5 ML VIAL INJ (10:49)
[2024-02-13 10:50] VITALS: BP 151/86; PULSE 84; O2SAT 94
[2024-02-13] MEDS: TRIAMCINOLONE ACETONIDE 40 MG/ML VIAL INJ (10:50)
--- NOTE | 2024-02-13 10:54 | P.ON_ITS ---
Date of procedure: 02/13/24 Pre-op diagnosis: Lumbar stenosis with neurogenic claudication Post-op diagnosis: same as pre-op Procedure: Procedure: Bilateral L5-S1 transforaminal epidural steroid injection Medications: Bupivacaine 0.25% 2cc, lidocaine 2% 1cc, kenalog 80mg The patient was seen and examined in the preoperative holding area.? Informed consent was obtained and placed on the chart.? Patient was brought to the medical procedure unit and placed in the prone position where a timeout was completed verifying the correct patient, procedure site, position, and planned special equipment using sterile aseptic technique.? Under direct fluoroscopic visualization a 25-gauge Quincke tipped spinal needle was advanced at level L5- S1 to the designated neural foramen where contrast dye was injected to show adequate spread.? There was no evidence of vascular or adverse uptake.? Epidural spread was appreciated.? The above-mentioned injectate was then placed in a 1.5 mL aliquot preceded by negative aspiration.? The needle was removed. The same procedure, at the same level, was completed on the opposite side. ? Patient was taken to the postprocedural recovery area and monitored for an appropriate length of time before found suitable for discharge in the accompaniment of a responsible adult. Anesthesia: Local Surgeon: Karina Rodriguez Pathology: none sent Condition: stable Disposition: no change
== END 2024-02-13 10:56 | disposition home or self-care (01) ==
LOC: SURGOUT 09:33
PROVIDERS: PCP Family Medicine; Visit Provider Anesthesiology
DX: M48.062 Spinal stenosis, lumbar region with neurogenic claudication (principal)
CPT/HCPCS: 64483; Q9966

== ENCOUNTER 2024-02-20 10:24 | Day surgery (SDC) | payer BC, SELFPAY ==
--- OUTSIDE RECORDS SUMMARY | 2024-02-20 10:35 | XMS_ITS | CCD ---
Author Organization [facility] Care Team Providers Care Business Development Consultant Name Role Phone GAVINO, ARNEL Admitting Unavailable GAVINO ARNEL Attending Unavailable SAMMI ARRIETA Referring Unavailable NADERER, JEROD Primary Care Unavailable [place] Procedure Practitioner Unavailab le UNKNOWN, PROVIDER Surgeon Unavailable Ovitt, Zayda Admitting Unavailable Ovitt, Zayda Attending Unavailable NADERER, JEROD Referring Unavailable NADERER, JEROD Primary Care Unavailable Unavailable Primary Care Provider Unavailmercedes e PANCHO, DR BARRETT A Primary Care Unavailable ANATOLIY [...] JEROD Attending Unavailable NADERER, JEROD Attending Unavailable TRAYLOR, DAKOTA Referring Unavailable TRAYLOR, DAKOTA Referring Unavailable TRAYLOR, DAKOTA Referring Unavailable TRAYLOR, DAKOTA Attending Unavailable Karina Rodriguez MD Attending Unavailable Allergies Allergy Classification Reported Allergen(s) Allergy Type Date of Onset Reaction(s) Facility (1 source) No Known Medication Allergies; Translations: [No Known Medication Allergies] Propensity to adverse reactions to drug (disorder) [facility] Repository (1 source) ALLERGIES NOT ON FILE; Translations: [ALLERGIES NOT ON FILE] Propensity to adverse reactions (disorder) [facility] Repository Problems Problem Classification Problem Date Documented [...] Range Facility Orders Onlyon 01-18-2024 Orders Only [id number] Binta Graves 1980 F Date Provider Department Center 01/18/2024 ZAYDA MARTINS ONC DCC No family history on file Normal [facility] Coding Summaryon 03-03-2023 Coding Summary HTMLBase 64 EbkvpyaxPTn4jKi+PGhlY WQ+TB3GKCUiR97ebNYdgJ 5qY9WLCUtSArmqFESEJGa WEdSguxAeEB5plHJcRRRx IC8+NP7dVYUaHzcpnJAtd 0E5vCQ9L01ifo0nSKkfrN K1MZGcAaXodknti7hecLc 6IDcuNmluOyBt RMNolC08MTM6kG96Nr11z HRjuEXws6gmyHv4FsNwGZ McXAE2vDvhKWzqa0BpTFP eG21qtISgq0E7 KDMmoGuqoJTxZfFifMU0g X8iYZxkyarph8ranocdEy n2gs53eQPzr4X1tON1I6H ymqD8ZHSwlKEu KosdxCEZkE2wusfzu4fsq quaZrQfPELhDPb4OJx3UZ UnkFtoJsPyNR48JOC6PBG scbZqS2IcYQEk lAoqErH1u0R8Hu0UB6IGZ timH7SQDQRNSKwwmJZ+PC 03op91A9IkAfqhEwf3PRQ iDGV5wZV7vQ1p CXNxKSrln8M9iWF2F6Jwm kJmqr5gz0uaMLXkCLqsH4 0sjIPed3B2IZOorLE3UGF kwLfjOsMbsR57 Oyc+XPZwmCaov4EeNhpod 7ugi8rrkKb1ScstFCQxii WtgRvzDUE7b6QnAk7kBHW mlBZ5nJQ0rI3r WmXiYdN1BNalA283BxQes XBzIippV23oA6FmxIP+PH LuNrz6IQEqmNgyQF3oU4X hZGRpbmctbGVm fDkvIV5vDNKsupilEIDyk G2wBREcD3o1CePbVeD7CH kqE8AnJIHwewviOh20tD9 aVpXyQdL1ITcm X3GdveM7LGUqaSOnWVnsP UR8Q90xq3Q8SSDcIRYmEN U7hTM7gW1ngNrzbzxaiDV mdDsgdmVydGlj VIxcGBvxK108HNHazZxcH kNvZGluZyBEYXRlOiAgMD YvMDEvMjAyMzwvdGQ+PHR cYWW0mMoeGDYt aUFhWKytYi6fiNpqpDxaV N0qBPPpejekEMGrtD1zOD BguAAtnNhkPM3sXRNpmwc pg317KbHeUPV9 RWHdzANjT6DtrB8xIoFvT PYlGUKyE2EpoXBqYCgeE4 43LPwlOeI4VZPtfrCdT2P sLWFsaWduOiB0 d6C7Vt1Mf0NqzccnB2Kzr ESoPeEoGrjfJVb2W5CpEy wvdHI+VG12GPMlKF36EJl 1YFK7zEizVGsz CXJjK8LciQ7sEjNmAQAdC GRkOyc+PHRhYmxlIHdpZH RoPScxMDAlJyBzdHlsZT0 pAb3rUGWsUJVk vUjfwHGgGuHia5ekLZFnY DjlGR0kyNrrW6BqlJG7CA Zcn8c2Bp08A99mU9QrmIZ +IXQmuJR1qDI3 jD5sTxWaPdJ5KSejB138N pZfrIVlYkdbi1vsw4bajO g8IcZ7ZKNagmAryXpgPLM 9y8HeDp39D21v IHdpZHRoPSIxNSUiIHZhb Baxqy2icC1gCz0+PGNvbC H2fEQ6dR9qTjUkFgG3BVe qS252PxXmiYUx Xosfm3xzm4iuoKt6QuYtU ZYovxGfsNodGSY0k0VyLr 44N6BcpXjbd2CyMhb2oo1 6kLUyi4U6cCY4 M6BsHUFoyjkguLIwpZagN J0lEKXuqiutJLTymQ1uUQ GpX0d7MeRuRzK5QJanZ6L pqaI2CAZvkBHd ITLgmMJPfX9oiqlad2hbx mngZsNrGHQzZHh0YDl3VU IztOehAdAkICN5KmX9QJK 2xHVzlU4uwJfw gsfzrX4mBag+WEH1kVWtm SUTZU7fVaupcXJ+PHRkIH T1uJktWFiqNHQgjM6nDDB pA8o1CxGfTqU6 LUzuY0WzosG0SZJvuZThH DAyzMHFqD9hakjmh7zwob xkUeGmTKZgJHm7QHe1QQL saWduOiBsZWZ0 KaR2WKZ7aTWpeL7fmMwjv vlvgS1fYbr+QmlydGggRG C6JIi2W6IoJpm3NQPtdKg bSU8jmWYtBNng Yg8dxScecFcoUK6rTXHij qxib975BrJzz8akVKHogD IqAJikHGT9Y52cp0Q1ZGS jLKXfCEB6eEN1 nV3hcSexmtkjmALsiOtgb oYgfMngRWjnVAesR922AZ EroBckKnMqJCy0U2HiOio 4DHSdhBzcMR3n dKMgPSwsNu0syAqmzUzgU V6eAAZamhofd472DxJjj0 wzEASxrWTqYDdwAJT6K66 bf9B6RUAwEFHd QGD6aUC8uA3waZctjfdam GVmdDsgdmVydGljYWwtYW lxD921RKFbsEbbMxFkaUo 1Q2FzXbp3GQBs mQsbSR9tdUHdIOkbYh5yo EiyfEgfLY4bPYCqppvaf1 77VxTfu1flYZUfsWOvELr kRSE9J90yw2Q5 QEFtMQKuVOS2hSI5iO8pn GlnbjogbGVmdDsgdmVydG xyGJfqRCbhV081MKTqvRs nPlBhdGllbnQg ERypCKh9K4EqMhyrlJP+P X69UWWxOT32oHLszTKse7 omkGd5WmEeCQUbMUZ0pXg kEJnku1PtXQXn G14unGLbh6L7HLMatMjrt EUiHwUafED3sV9eZAxpwb wnr2eevruqRpcpj0zmvb6 9zQ01N92mEQzu ZHRoPSIzMCUiIHZhbGlnb u7ueX6rJn2+HUTurEB9nD A1uS8jTNMkJsZ4NLetG49 9InRvcCIvPjxj a9xwd6izoMc0BjF3OHKge pVnoMlxSWK8u9FnLp68Z6 9sIHdpZHRoPSIyMCUiIHZ ogCznaf0puW4k Ii8+GEAqgCP4oWK2iY3aS wZfXjT3VIytS984WpDqxE JvQkjtF50mO0NenHP+PHR vHoh7PXNluJbl DE8lqAWrTPfbOr1sBZO3V cBpDuRgUNrmJ4AhEXObou hgjfzyxGQ5TDAcVSYxwH3 0Hv9szFhaTMXr uHAZiL0hveisi3vlpnbrZ mXfMBDnLZf6SKd1MKNtcY imJjSpAEF5NeP4OUE1vEO wjS9ddUlbjzyj jW0wS9NtQNMegaztOx62o M0fWpBdHyL2PIurMkb+TU FSVElOLCBFTElaQUJFVEg oZS5GPK06YW50 kYNxh1G2dNK0O8PlOQOkv srmwbhhtQI1EHShUKHvoH 93fKWeJQfpEr5lc4E5w61 2NFPnOEDytM44 Bd9roDdsYYVcoATDoF2uv eunu3clkhakNpTuJOZlTM c6KTw6PEBnsBbkUrFiTQY 9UcT5JFP1aBCb lH9xmIehupobmB5bEwn+M OaeIQPuXIa9HEeesIW+PH EcIIG5eImyONmvTFJazM5 kMLLuL7f6XnPi NoI7EXoyL7SmYCHvptvvU r76jG1pIwIxSqF1JKcvN9 LqkxB5OTXbbQKmZMrqOEB 8X46xb3M4LXZf XQGqAAY8uMM4yT0nkUlus jogbGVmdDsgdmVydGljYW ghKXahV477ZZWfwGxmHyW hQCavEACaOP45 GF40hLPwq3I4dFQ2H4PcD PRrhfifkqswoKV3SJOgOW DswS15lOTaUCibPa3ec0S 6l261QWZyPJMy qI34Ph5ydQbvKPRtfOMQr N3hxegve0negkxnWfYgHC AgLBc7VJp9CUPkjHwgJyJ lUAS3SxK7AAW0 mWFblO8rtLsvveqdcV5yX yc+ZvYBMTjJMK86QK56pL Hxs3B3vTG8L5DsZDFspzn jbhxwnID5LUZm JKDvaS19nROuPWdkVh6sb 7C6w495YJEpXVUwxL84Ma 2miDjtNJAsmFNLqK9ptyo kt9rnletlMqPc KSTmHUa8RLx1JDOnqYgdW cEaZDV7GeS4YXE9gDKqnK 8npHafxvteuP3fLtl+T1A 5B2ZpMxehrHU+ VI89GEIvEY47lEQqzXLaf 6drdEg8GpRtQNJtWDN6cG sqYKvpa2SaXZVtR75hlQK gg4B7TQSndByc jIZnXrKysNH2dE5tUAzhg ubfm1cshpdqUjbrd1bels 50hJ86S99bSAypORYvQCU zMCUiIHZhbGln yf8mcH5xHe9+RULaaLF8j DW3iV5rRtPcBxX9HTozK6 77ObIjiMXmHhvzw7uxi4v onFs6DbStRNHu lbPgxWddGWY5o1AhHo30A 29sIHdpZHRoPSIyMCUiIH NtgRfrha6diI4bCx0+PC9 jo2fjxa23fB61 dHI+LJZlAUE7xNelUHlvK UFlsX4lDNokShS1HBEmBj LciZ26xCYvKJkzAf5coEw hmZvpON1mECFd uncqu150JlEub0ozKOAek MHfKStjJZJ7Q65yc0S3DB OgMPEtRJJ6cQH6cA9pfDv nbjogbGVmdDsg fmAorGtaGBymMNmpW299N JBxiPbvWpLqpWDiM6bhbd SYNO0nNdlkeRI+PHRkIHN 0eWxlPSdwYWRk wV1xGPEcF0w3TvSoDuU3O IjmX5SyubH0VKAzbGKeFD BlkZXCuG5eyxiuh0mahlt gIzAwMDAwMDt0 XVe8JRTfqBioUjJwVZP4F gL4XBW2rYGdzS5ptTvaff afuT7bKhv+RklOOjwvdGQ +ERLgAYJ2hVhq SFomDPIbaX5eXRDuU6z7W mYtWjU6VSypS1LcopX9KJ UphGTpOFFloZTJbK7lxpm rt4lhpgkrGgXf EQToGQz7SBc2QGIqzYieL hXcOPH2MfJ4XLU3sCPdoG 0fuRtkairzvK4qOui+TVJ OOjwvdGQ+PHRk XIQ0yEwqCUimZJRvqO2eV XWjX6a8JcTbCyT3QNcmU1 EzlyS1YIOagPVpIDVjvLL YyK6ldaamh5zs pvcrSnStUEAiKQn1RZd3O VUltPbqDuSwEFN5BtM1HJ O9nUAhyT7wwZsnimzmrO3 wOyc+XNL3KDX5 FY70PE71U5CdKxadnCMpy +PHRhYmxlIHdpZHRoPS dpJGLpHuQfvKtnPP0uEs3 yZGVyLWNvbGxh cHN (more content not included)... Normal [facility] QUANTIFERON TB GOLD PLUSon 0 02-27-2023 QuantiFERON Incubation Incubation performed. Normal [facility] Comment on above: Performed By: #### Q NTTB #### [facility] [address] [place] [address] Dr. Shon Barger QuantiFERON-TB Gold Plus Negative Normal Negative [facility] Comment on above: Result Comment: No r esponse to M tuberculosis antigens detected. Infection with M tuberculosis is unlikely, but high risk individuals should be considered for additional testing (ATS/IDSA/CDC Clinical Practice Guidelines, 2017). The reference range is an Antigen minus Nil result of <0.35 IU/mL. Chemiluminescence immunoassay methodology Performed By: #### Q NTTB #### [facility] [address] [place] [address] Dr. Shon Barger HEPATITIS B SURFACE ANTIBODY , QUANTon 02-26-2023 Hepatitis B Surf AB Quant 14.2 mIU/mL Normal Immunity>9.9 [facility] Comment on above: Result Comment: Stat us of Immunity Anti-HBs Level Inconsistent with Immunity 0.0 - 9.9 Consistent with Immunity >9.9 Performed By: #### H EPBSRF #### [facility] [address] [place] [address] Dr. Shon Barger MMR IMMUNITYon 02-26-2023 Mumps Abs, IgG 156.0 AU/mL Normal Immune >10.[address] [facility] Comment on above: Result Comment: Nega tive <9.0 Equivocal 9.0 - 10.9 Positive >10.9 A positive result generally indicates past exposure to Mumps virus or previous vaccination. Performed By: #### M MRIMMU #### [facility] [address] [place] [address] Dr. Shon Barger Rubella Antibodies, IgG 1.73 index Normal Immune >0.99 [facility] Comment on above: Result Comment: Non- immune <0.90 Equivocal 0.90 - 0.99 Immune >0.99 Performed By: #### M MRIMMU #### [facility] [address] [place] [address] Dr. Shon Barger Rubeola Ab, IgG 116.0 AU/mL Normal Immune >16.4 [facility] Comment on above: Result Comment: Nega tive <13.5 Equivocal 13.5 - 16.4 Positive >16.4 Presence of antibodies to Rubeola is presumptive evidence of immunity except when acute infection is suspected. Performed By: #### M MRIMMU #### [facility] [address] [place] [address] Dr. Shon Barger VARICELLA IGG ABon 3 Varicella Zoster IgG 1057 index Normal Immune >165 [facility] Comment on above: Result Comment: Nega tive <135 Equivocal 135 - 165 Positive >165 A positive result generally indicates exposure to the pathogen or administration of specific immunoglobulins, but it is not indication of active infection or stage of disease. Performed By: #### V ARCEL #### [facility] [address] [place] [address] Dr. Shon Barger MAGR Intraoperative Recordon 01-03-2023 MAGR Intraoperative Record MAGR Intra-Op Record Summary Primary Physician: Sarabjit Blanco MD Finalized Date/Time: 01/03/23 13:44:55 Pt. Name: BINTA GRAVES Mukund/Sex: 1980 FEMALE Med Rec #: [id number] Physician: Sarabjit Blanco MD Financial #: [id number] Pt. Type: D Room/Bed: / Admit/Disch: 12/29/22 [...] Cox MA Role Performed Surgeon - Primary Special Police Special Police Time In 12/29/22 08:38:00 12/29/22 08:38:00 12/29/22 08:38:00 Time Out 12/29/22 09:05:00 12/29/22 09:05:00 12/29/22 09:05:00 Procedure Radiofrequency Radiofrequency Radiofrequency Ablation(Bilateral) Ablation(Bilateral) Ablation(Bilateral) Last Modified By: Tiffany Tyson RN, Rebecca L RN Votino, Rebecca L RN 12/31/22 09:51:06 12/31/22 09:51:06 12/31/22 09:51:06 Entry 4 Entry 5 Entry 6 Case Attendee Eveline Chen RN, Jalen Houser CST, MD Role Performed Special Police Scrub Personnel Anesthesiologist of Record Time In 12/29/22 08:38:00 12/29/22 08:38:00 12/29/22 08:38:00 Time Out 12/29/22 09:05:00 12/29/22 09:05:00 12/29/22 09:05:00 Procedure Radiofrequency Radiofrequency Radiofrequency Ablation(Bilateral) Ablation(Bilateral) Ablation(Bilateral) Last Modified By: Tiffany Tyson RN, Rebecca L RN Votino, Rebecca L RN 12/31/22 09:51:06 12/31/22 09:51:06 12/31/22 09:51:06 Entry 7 Case Attendee Froy Ramos RT (R) ARRT Role Performed Launch Steward Time In 12/29/22 08:38:00 Time Out 12/29/22 [...] Agents (Im.270) Povidone-Iodine Prep By Vida Figueroa TERRITORY ACCOUNT REPRESENTATIVE Prep Area (Im.270) Back lower Prep Area Details Bilateral (more content not included)... [facility] Coding Summaryon 12-30-2022 Coding Summary HTMLBase 64 XhkfasraBVw3bMn+PGhlY WQ+VX9BNFFwE33zqOKwxB 6HZ4dMTX3AFMNGFWRXRO6 JMW4zzFQ3WPcwY4ZfycDs FkkubYSzHH11GLq3STG3j YgaBKawtW6smEQlR6x8Up SlSP06hJ01KIurICTuXcH 3LjZpbjsgbWFy M6ixIcBjmNYaJcz+PHRhY mxlIHdpZHRoPScxMDAlJy QugAxzYA1lOv6xMFEoMJU vbGxhcHNlOiBj h1liBBElKExgTK4jmYtjG 9XfhRG0ZDEnu6j6Ww56kC I+NBUvPPC1hJikTNhqm62 5HeVkj6qeAGT2 hUCuEGzdYJK0I49nf0B8T BPwDSKxKNV4cGS8xQ4gvM utdzhkL7OzeUFoJvD6YHR 7tZDoqF9jzCpy eemkfM9pYua+B35IZO1BO YNYIK1UEky4G0NuOucewP I+LB52PDXgQI64xKIgiYZ yv9imlSw3CiBk XVWvMWJ7pYheXRsgl3SlT AZmF13unMPll2R4LQUrrD mjxSZkSfMldHD7fR7sYUs epaewu7dhhyuo Vrbow4uais01mR41Q43kN XwcQXSaATA0IUFdDHYmuQ ybbv7pwO8mEh9+XHgtp1y wv4djtUl5WhEt PHPoloYjgYolERG8r3BuR n25S8BfnNleq0HaGon3zk 84yIDcr0M5jYO6GLytJGW bpH3mUKznLpT3 WHRnIgYnfK51rFEiHWwcE w1gaApkcYkaYY6kEQTota ozGDAytS6iMLGiuNPyxKc bNA1cGVKhoqpu l542YgXbITB3WZIzoWJqE 1CliB0wHoPpPYKxLPKvV3 WsiSMiCVjuC456PMelYrM 7FVFgvjSkL0Dk TLRooXnoJhG8g7M0Yi4Dm 5BbrqabWJS1ZMizRLRcMj GwKxEzEfZ1V4CkFaj5HLR uxGzbLZ4tJ1Jg OPNoylqhnnqmhND4RCMbM QZyvJ70mUIpIDvqYa8jo4 Q2e121SXXaOARcgW43Xv6 udDogMTBwdCBU aN1syxkyu6ivcqlxOmHdE QThDYl5MSx1ZARckFkmGz NlVYD4RjE3MLR7kGWcfO0 unYxxeuyhrE0h Oyc+J81xlL0iIFI3VWL1v krhDEQgjrBfFZ52FE97H8 RyPjwvdGFibGU+PGRpdiB utCcsZM4lGxOo c1ylk2GoRDtbR3PcTCAsD LgwQdw5YQZkXAL7uOZ3vO 6hEOWnIIdaw4C4kTK6V3D rrqMeky4bz2zu UIXsHFheG28teCCzm4C4B VYkcFI9VTDavItpSlPyzJ 93Oyc+SEJmgQtef3YcHag hv2hrj5vkyBe7 OlMtVPVzkxHzqAsrFFQ4m 5VjYn44Q91xLHiePQQsBU YsXFAjOJKliShboj6elD1 wIi8+PGNvbCB3 kEB3zY6iLJQnKmJ0MLeiL 507KhSauCWcSczjx0wor5 vzpIj3NeIvKLHyhjYmeWs fNVG2d2IqZg55 S59iGPpwBBFdGDFzDQLmA SQrnKofnk0fjP4zRx3+PC 9eb9kwez03sB78oMB+PHR nGBR9vXpuREbn WHPoeA7jNSfxWbJ9REZoA yHkvQ21uAOhBEovZa2ucW gjsAnkZT6kENYilynse58 3WsHxf2ygULVt tFNfEDivACC0J30vp1E7Q YNdUJWaIME8gWU3vQ2bnA lnbjogbGVmdDsgdmVydGl oWOmtJIorO153 IHRvcDsnPlBhdGllbnQgT zXzKZq4T8KxFdf1UYSsaX yhUR9mpMMfUKuhWm7iqXp ybOpoYT0aUZDd fwfyk447DcYwr6atNOQfo PVePBokLLH4O46zc7X4CH ZpDVTkQHO7fLC4eO7xgJj nbjogbGVmdDsg nbSuyJisMQknVPomY547C HRvcDsnPkJpcnRoIERhdG V2UG58GU24qXMsn7N0bIR 3X0EfNJKvqxzh ctffpAO9CCAaUGIerC08T v8sbSkkTj2vWILhBBG3JM IpiCEoQ2EfkT0xDbPiZQG vVKTxP7RvvKYe SYjcQ847ZYtqPgQ5HRXoq cQtG4LkLLHcdFgeSqV4d9 V5Fa5LU3R4IJ92MF38rUG ik2D2cIN8X2Ie RPZybpmebfnuySJ8SGGlX EAqyV12Rd6njKgoSv4pUL UjOZD2SXBtoVSwF8QckO2 yOiAjMDAwMDAw R2KfkVVzUIqxU294VAthY qM2FAIcsmPcG2PlBVXxqW msZmC7z8F0Ul9USQn4EG1 8RT71sZFcl2S4 yWH8W1ReDLDpcfysfqiys WD2CERmQTVhtC89Jj7btD xdBh5sGVSpTTQ1ADTqqXM sI5QpnR9gUxYv ODHwSRLiU6BcdJFqGRzaN 573LNulDmS5BUHkkeMiH5 JlDHRhsNhdBmS8s7O5Sb9 JJONxBE69OID9 tFY9WZ86TP15U4JaMrljl GFibGU+PHRhYmxlIHdpZH RoPScxMDAlJyBzdHlsZT0 nCz3eJXXdFSGb oMpvbDZfYkPjw2ozHODzV WiiQT4qsGriF4AggMI0XC Hmd6e7Gq61O70tK0VypDJ +URChcTJ3lEK8 aE0zOxQdRgQ0ZKywA192P kKfkABqOpwxy2bvp0vhtQ a3UeM4HBWfbhCoyKnhQLK 2m6YhFn32G45p IHdpZHRoPSIxNSUiIHZhb Dqwma5wyW0oIe7+PGNvbC F9oRR8vB6oTyUzNvK2RMr lB894JpLgiMPl Sirzg4smt7nysCq0YfWqW CFwufPztOlrHGY0q2ElCi 34B3UyeXioi5RjGag7rx8 4mBSnh9Y0aED0 E9NvLUQfxvlpvNGswFbbY X5uHPLgnmdiONPzxG1wUM DxZ2o2DbXxIdB9VDniH9Y ljnR1VPOpmTBg GYruSNU6Q67rw9S3DWXnG TTmOSQ9pGC9jX7nsUbfej ogbGVmdDsgdmVydGljYWw zINapN660JZBc tNenGZZhsK2sQQXgyWOdy WztCJ2vIZAmuwuiYx8MOl RJTiwgRUxJWkFCRVRIIEF OTjwvdGQ+PHRk FZI3xErrLMfsCIBieU9hJ MUeV1p0ApApLuR8PCioG4 XbMBPjweqyLn01lW9fFdM kWrF8DHlcF1Ow dbV1YNOxdQMpMUpgYPV2Z 83hq7M1NFBxUPTbRFO2jY R8sG6xpOjedldqnBSrfZh gdmVydGljYWwt DPiqO525UTGzgAxyQiL4B kBoAyN7XMG4R1RtXjp6BI MivLdrLO3smHLoJWbwXf2 ltRtfgOefSB3l LHPaszqhDHUqfY7mOPRkl TJuwCoqRQ7kPCCxfkipb4 26MxQoIHW8IMXgdYTbW5Y usW0oLvWzFURt NUTtW4LoyHZyBDevN012Y HoxKcY7ITPsyaPaN4VgLN WtnHzaZmV0f5Z9Ew07SzL ZZWFyczwvdGQ+ UGDgGZA0oHqrZGxnIHRhf K3eOTDyM4t9PsGyOnW2AP vkB2PqJIFodfuwCf69uO4 hQuXrRgM7VTwv W0ZutgZ8JCEyyKVhMPiaR MV1Y75ly0Y5KLNpBEViUD C9aOO1wT3qgVsyciysgNB mdDsgdmVydGlj ARtiHVcwD629PXGprZsvG kZFTUFMRTwvdGQ+PHRkIH O2oKhrCEfkRYDkjX8bGGI jK7i4JjKrBsY5 XAxfW6ZzKETyvtxoDt29m Z5gOoBcCdF9HFwjL6Uflx X3CASiwWTdXMzzXFD2C68 vs0V8AJVfPRRg ONU0uLE8gE3tqLtlqiuca GVmdDsgdmVydGljYWwtYW dpG643FGTlgSuvSyWkjDD GnTUkXYS9GO69 MD18N4JtReveuQYwgVW+P HRhYmxlIHdpZHRoPScxMD VcRjSmeXttGC2bHi0sJOJ yLWNvbGxhcHNl NtAzf4rbLWQbBTooPL8xf AhhP1AspQU8PXNmk3u3Ra 55T84hF1HnyZH+PGNvbCB 1gKG4gO5wYlMc GvW2LFuvG320MpYtfYTjN wzel5hsm3yzvOd6FkMoDY MfseTkvMvhQGA6a5EiOb6 0O64fQAszBKFm PHLaJQWgAQUnkDmmfw9mo G9wIi8+MKIoqOE5xTI6iB 7jUuEfMhS1VAoiT307FbN fhTUrRfiqV50f N8GjuIG+WTAqFnn0LQHwy CgkIH5vgXNwNXnzHm6wHH C9IoCsItAqDUxnA3QaSBA pbmctcmlnaHQ6 OJXgDLXfaH72Re8gxWccQ g6vYVRbXUF4KZVbrQDyZ6 EwqC8uEnHcTAVxFYLgV9E geHJcOGtnN487 ZAzmAbD3TAZrmpRoO1OuR RTliOxtCgV0g9J1Hl1FgW nglKLnCM5hYlPsHHt1S8E aBfa1HTFxhRpn HB5hsTOpRJhvKo2qqTthl CyiUW4fOCUojzjil344Rs Wth5bwZVFqwGAoPOrlSVR 9I33bv3S7OPGm BQGiOUH5yOE3zV2vgXlwu jogbGVmdDsgdmVydGljYW hzOHwqP110YJKmaSyyIrG VDyi1W6YyHmu5 LPZluOntWV7joMAmCVadJ j5ihGzzrGemSO3rMJSlei tnx739ZySte0rxIVKbhGL pGRbvFGI7H64h d5Z9RHZsLPRvAMA7zBF0r A2spNkysjengJWceXxeaw MdtFbtRPzpYYpwX403QPL mdUmcMg2XGwx7 Z2RgTfm6DXAvdHarNC8rk MPlHQruBu2dwIqdaHrzSW 6gFADejbpwh079QgKuy0w kIDEwcHQgVGlt MUE2Z44dl3A0SMXwSYXtR PU3dRV6iZ4zkFbecrttcM VmdDsgdmVydGljYWwtYWx dJ707AGModStf PlBheWVyOjwvdGQ+PC90c m60X0YfDcvvPlw6KEDuCI Q6lWO1iF6iJYKxCCiip7Y 1wGW8E2HcqwNj ci1 (more content not included)... [facility] Consent Formson 12-30-2022 Consent Forms [id number] .[id number] [facility] Anesthesia Noteon 12-29-2022 Anesthesia Note Patient: BINTA [...] (DEC 29 09:16) SBP 135 mmHg (DEC 29:16) DBP H [...] on: 12/29/2022 09:33 EDT] Jalen Hagan MD [facility] Anesthesia Note Patient: BINTA GRAVES Age: 42 [...] All Problems Lumbar spondylosis / SNOMED CT 425466053 / Confirmed Anterolisthesis of lumbosacral spine / SNOMED CT 358587724 / Confirmed Histories Family History: No family history items have been selected or recorded. Procedure history: Facet joint nerve block ([id number]) on 12/15/2022 at 42 Years. Comments: 12/15/2022 [...] Oriented. Review / Management Laboratory Results Plan Citizen Of [place] [employer]#( A) physical status classification: Class II. Anesthetic Preoperative Plan Anesthesia: Monitored anesthesia care. Anesthetic plan, risks, benefits, and alternatives discussed with the patient and/or family. Patient verbalized understanding. Informed consent was given. Consent was signed by the patient. [Electronically Signed on: 12/29/2022 08:45 EDT] Jalen Hagan MD [Verified on: 12/29/2022 08:45 EDT] Jalen Hagan MD Normal [facility] Inpatient Patient Summaryon 12-29-2022 [place] [address] Patient Discharge Instructions Name: JELENABINTA : 1980 Patient Address: [address] [place] [address] Primary Care Provider: Name: JEROD DELEON After you are discharged if you find you have any questions, please, call [phone] ext [phone] to speak to a nurse. Discharge Diagnosis: Anterolisthesis of lumbosacral spine; Lumbar spondylosis Prescription Information: If you have been given a prescription for narcotics, seek immediate medical attention if you have any difficulty breathing or any sudden status changes such as confusion and sleepiness. If you or anyone you know is experiencing suicidal thoughts, mental health, alcohol and/or drug addiction problems; contact the [facility] 25/04 Crisis Hotline -Text 4HKRY ff 687842. If you received any narcotics, sedation, or [...] business decisions or sign any legal documents [facility] would like to thank you for allowing [...] for Disease Control and Prevention June 2014 [facility] 0 12-29-2022 [facility] Preoperative Record [facility] Pre-Op Record Summary Primary Physician: Sarabjit Blanco MD Finalized Date/Time: 12/29/22 09:18:18 Pt. Name: BINTA GRAVES /Sex: 1980 FEMALE Med Rec #: [id number] Physician: Sarabjit Blanco MD Financial #: [id number] Pt. Type: D Room/Bed: / Admit/Disch: 12/29/22 [...] Signed By: Namita Roman RN 12/29/22 09:18 [facility] Operative Report - Surgeon/P reagan 12-29-2022 Operative [...] on: 12/29/2022 09:03 EDT] Sarabjit Blanco MD [facility] Patient Handouton 12-29-2022 Patient Handout [facility] Test Urine 1on U Preg Negative [facility] Comment on above: Performed By: #### [id number] ####[facility] (DEFAULT)[address] [place] [address] U Preg Internal Control Pass [facility] Comment on above: Performed By: #### 3 [id number] ####[facility] (DEFAULT)[address] [place] [address] Progress Note - Provideron 0 12-23-2022 Progress Note - Provider [id number] .[id number] [facility] Progress Note-Physicianon Progress Note-Physician DATE OF VISIT: [...] to proceed. Sarabjit Blanco M.D. JOB #: [id number] [Electronically Signed on: 12/27/2022 09:06 EDT] Blanco, Sarabjit MD [Verified on: 12/27/2022 09:06 EDT] Blanco, Sarabjit MD [Transcribed on: 12/23/2022 09:18 EDT] [facility] Coding Summaryon 12-16-2022 Coding Summary HTMLBase 64 YoygdgdfHRg8qZa+PGhlY WQ+TV0XTRAjS53jtFTnlC 9UH3dMZC8EJDQTUDHGMR0 RBU8liHU8STslX4CjbtQp TptojQZmBL09LYh5TKA9n KgoCQlfoU7xhNPkX3v0Yj MkVQ88tX48ZEqcPCMeTuF 3LjZpbjsgbWFy B3qtOqEilMFqBju+PHRhY mxlIHdpZHRoPScxMDAlJy NrnQrnNW9xFl0gZGKuWZR vbGxhcHNlOiBj i3eiJZTzGIdmIX1muCuxZ 6ZkcVO0QCEdk1k0Pa14wH I+APPuTHQ4pYghEXmnw86 9OuQfh8cpLAT3 sLMfOQkgILZ1S91bs1J4Z RVaYFRxUQQ4eWB3oT8muK jxzlcmC4MeeDPbIvV1MCG 0eLDtjB3uePhl gcckbW0mLrm+F95MKM5FL DPFQG3EGcl8X5HoCquroQ I+KY18DJTvOJ55gCQtuKV mk1xcmWs4RoYz GEBaADS6vNpqKThcr5LlE UBfJ86psJDhq0Z3WECknD crjTNiMeDquNT6pV3zECb fbzbow2bmzdzd Avpvb4wojx44bS28D91sT NxoFPAnJJB7KVKxXZHkqV aapi1anE0qAu8+KQhyq1i pw7ufjMl0JnVh BIUfveXkgUvoWQX3s9JdO d58N7AabToiz7MsHqs7ph 01dPPxv8V6hWT0DEczJIF luP6rKNjeSjS3 KYFtQeQzpX45wJPaEMkzS z5yjJyraBpvEM8mWXVqjv pbQWCybM3fDXCmdRMbwDa yKM2eQTLsootz g923VlRzYWO8UDYrsANcS 7VulC2gMvFqSKHlREWeJ4 BgoWOxOJhdS187SEahBnN 8XBMunqVyV6Oz IZEspOstKoZ8x8F3Rp2Ro 2EutvkrAII5JEdfUMEzOv B7HkYwLgS0Y3MbUik9BHH ndHwtGY7lC4Jy SOVammjniflntWY5PXCuP TTluZ94sTBgIBnyVa5eb3 D1g002SEKhKCSjrW60Wh9 udDogMTBwdCBU hP3cubrkg9jdpvikCqYgQ PUgTWi8BBa5PNLgyHwxPa NnJNP9JbQ0JXI0xLZsyV3 sbBmkboljvA7r Oyc+B49piQ6pXLF5GQO3f zesWZNedaDiKG89WS27Y9 RyPjwvdGFibGU+PGRpdiB rfOefDU5xIaEf r1fuj8XnETmiI6TvHWWyI HrrFzi3USKiFIP6jCD1hR 8tRXNpNKkef7D5yOY7D9F aklHpfh9ui1wv OCFeRXwnM60flNQbp9D6X OHzmOO1YCEdvHpgYtQwlV 93Oyc+TNAfaSbbk8QqNyf tq6vtr6pfnJy4 DhBcOJFsdcQhuTnsDCD9s 5HoVu15O08mGDpgRUKtTR KiSVZyHSPfzVsoxz1guF7 wIi8+PGNvbCB3 zTH3sG7uYQAjYqV1SUbkV 047DrSolAAnFuxmz7yru3 stwCl5LvDaFHBewgUhiFu pWMW4b2VtYp30 U37hOQumKYKmZDImGBZjA VElqOapcz2exK7gQt4+PC 6gt2fpyt14tV61wDZ+PHR dENQ6yPqrYJld VEKnbK6mDUjsIiE1RWOgM sOzoI74aAFjXArtQa3mbM yqvPbxRR5nWRBhgxine68 2GdTpr6qhMWTh pSTuQYjyHNS4A90qn5Q1P EBaZPAkZCY4hUQ7zR8pxA lnbjogbGVmdDsgdmVydGl qOOwvQBnyR876 IHRvcDsnPlBhdGllbnQgT lPoQUq0S3SyXzi8VEWtfC qnIO3udVKsZXoqCi0yzAj vyGdeEX1wVAGt gtiyp928YmWoz1jyQGTpo JUgXNiyLFS8I36qa6O6QE SvVUQpDCR3pWR1oU4lwLq nbjogbGVmdDsg qfPztJjjWEsvENmxQ949I HRvcDsnPkJpcnRoIERhdG Z2GS43LW07yUNpy1Y4gSX 7A5CxDGPdtjuj dveapDA3CJMaTVRklD55H x0ewTckJu5yKRVgFQP1WP BznVUoK1HxbA5nSkQjLAE kSRGzM9XgyKWi ZYgdU626KTztInM7VKOyn eHoU8HpPFLuiBpzFiV8z2 C5An6OD3N6XO72DV78fQG yt7X4eSF4K4Xk UTCzoyhvdaezeMX0CKSrE SOsdP22Oq9rcStbRp3uUV YfULX4ZOOrqJViV4SvcJ9 yOiAjMDAwMDAw J6WmdOTuTAiwX836XRybC hZ3MFAwiaRrE9ImDZKqhT kmBuG9m5K3Ha4XBUj4WP4 5VO52bLFgd7O0 cUD2L2WmIUUsbajcpjdck EW5HVOmRJYsbB78Dk7hpC vnCa0qJOIlGHE0HAOdvJP hC9TydV3qQkEi EPUmAIQiB0RhyCMwXLwaT 742OPzeLrG9TDMqmqSmD6 VrHBEflCifFaN1l2J5Kz1 UOXUbPY32NFT8 fXY5TH34DL20V5GeSrvlx GFibGU+PHRhYmxlIHdpZH RoPScxMDAlJyBzdHlsZT0 iAe6pCALvZPTh tVspsEQaSoTbc4zlFNQdQ BlfSS3rmOrkX2InxEA9GX Tbn1v9Bs46C22fF3NbtEX +MKGooGF3nEJ1 cQ0cLfRhPgG3PFgmW998Q uQmgROcTzpsb6nys3alaY t0DwZ2HZPfazPdpQkcBHV 8c0GzVw28K13x IHdpZHRoPSIxNSUiIHZhb Skbjy9mcN9kHp7+PGNvbC W1sHE0qX2fCeWnVhX5KPc aO282DcHrcCFv Hokvh4lsv0xzaEs0XwUnR KVeywZzjIpdPXV7x8FgCb 19V1UlnNldt7WzHub9cd0 9iIGlu2I9vIP6 E2SrUSDlwumaiBZrxBrlT W6fXMMnuuwtINVyuA7fFM NmN7g7DzDaYkX4DUzkC8K zclD6APEpyTRo NAunLUU8R17mp7C0WZGmZ BUcATB7wEA1eW2zgQbyfb ogbGVmdDsgdmVydGljYWw kOBxhO532VNLn tBcuDHAllO3zPQNbwZZho TgxQT7mUOHiyvjpBh3MNm RJTiwgRUxJWkFCRVRIIEF OTjwvdGQ+PHRk RFP9lGenJHtvEOYebJ5tZ PHeX4v3BtXoVvJ9PYmyJ6 KiGSAeuxinOn47wB5lMlA qFhU9VDuvH5Oi qwM5LDIulJXsDEzuHPX6N 50iw5Y6MKFcOKFqNKM1yW V5eV2wkYlzsyevdUJnrPz gdmVydGljYWwt SVwvV378SZUjmAjvDsX7J nNsJzC6THY9B3SbJck0LJ DkjScaBK4jfDNiBKhaYk8 lfJdpaHvdDX2a MHOdxshxGUWvdK2aTCZwc GNtxCbxVW0iARLdipacv7 94PhXaGUB9QIIngLUtT8O lwD7zStYsVTEt CXMwP6SbsCYrBFjeJ782B PrxLoL4MEExxkChW4GoCQ KaiAkuNuO1s1D1Qy32ZjI ZZWFyczwvdGQ+ SIBrMLS1yZhrQFamXCRou H0mSQVaE9s1TgXqObQ7NB ftE9MfRYDbetfwCw82hC8 rJfQnYkA5VRfl U4YcscY7HHFqnVZzKLduW XA8I78bd5B8LPXfHZNuLI S9vWL9nA9fdXxyyueckYY mdDsgdmVydGlj PCbzTQboA805DSVivWimB kZFTUFMRTwvdGQ+PHRkIH U3cVdtQWhsEHVblD7eTFJ iA0r3KzOuSfR8 ADsrO2JtCUSmbylcTp54l B5pDuOrMqF3TSboA2Dhkj C5USWtwHChPUkpKQX5T37 at1V5LDUkAQRz ZWG1qJN1pD2cfWfqciwfl GVmdDsgdmVydGljYWwtYW dsD166GSIdvZxfBoOxrGM TtOYcKIA5DM66 OU56H8PfErmjdRGbcQZ+P HRhYmxlIHdpZHRoPScxMD NqIbXgtSsoIK0sNa0tVCK yLWNvbGxhcHNl HnMeb3ksMHQtPYlpBC1to RqiM6ApzEE3UVOfa0i9Kn 83X81nB3MduQA+PGNvbCB 7wWH6xW7iJjYo HdP4ERozB917HjUedLCuW ybtt0gtm8glrYi9QcRqDS NofcOknCfvVBA6t2MlWa5 9Q70fAXmqHAWh JIGlEYLxWZMvpCkimv8np G9wIi8+KZMfuFL9lTV2aJ 2bIuPxQeJ9TVjzF279CdD bxJXvDtgaO59c Y9JdiCJ+IMGqNaf1YUQtl TscPB7snEZwZGnmWf8nDK G8ZnJpXmJqZVytG0NhMWL pbmctcmlnaHQ6 DZBcVQXclW88Pw5ndCaeG s5iFFAiKAC8VCGdqRFjK4 EipF3eShQhWQAmNYMpN3A zwYFlDGgnZ797 GPffFcT0DKBwzrSgV2VrV GJdaKqjBmE9r7L7Fb8LqP paxZVqPX6cEcPlGNh3T4B gTfo5JFCkvVhu UG5vhGLgLCdlRk3spKnpy BbkMO3lOBBpwtpmb017Ta Irv5ttRSFitTQeGTidJND 1F53oi0R7YEMe QDPlVAT7jJV4qJ9hzXgpb jogbGVmdDsgdmVydGljYW fdWYngX191EQLznRebTdS KSem7D8DsGfq2 CMQbbHgoHB4rfEKxCNakM s9scKzbiSeaYJ2mHWPmvn sxi352VtXnx4zmAAMqgSE sOVtpFDR2C80t f5Y1CUWgDCDdOWI2zYB8d S8ebLevsffxuODaxEwkip ImnWsbCGheEYskN324RUG xbCvvGu8JAck8 R8PgCsc3MAOuaWhmYF9nm RBsCQqeCl3mcKnleZcbRJ 4pPZVdgjkte805EgZho0g kIDEwcHQgVGlt SAX1V65kh2X6ZMFrUAUiR YA2bZX3rC8dmTdvbkbejL VmdDsgdmVydGljYWwtYWx cX458IMVbnJbt PlBheWVyOjwvdGQ+PC90c c28C7TtItlzNxc3HUTsQO A2vPX2rW6yNBMdWMvir7K 8cVH9P2DjisTs ci1 (more content not included)... [facility] Consent Formson 12-16-2022 Consent Forms [id number] [facility] Inpatient Patient Summaryon 12-15-2022 [place] [address] Patient Discharge Instructions Name: JELENA BINTA ANN : 1980 Patient Address: [address] [place] [address] Primary Care Provider: Name: JEROD DELEON After you are discharged if you find you have any questions, please, call [phone] ext [phone] to speak to a nurse. Discharge Diagnosis: [...] problems; contact the [facility] 25/04 Crisis Hotline -Text 4HMBE qh [phone]. If you received any narcotics, sedation, or [...] business decisions or sign any legal documents [facility] would like to thank you for allowing [...] these instructions at home: Medicines ? Take uawq-nqo-sxuuakq and prescription medicines only as told by [...] your h (more content not included)... Normal [facility] MAGR Intraoperative Recordon 12-15-2022 MAGR Intraoperative Record MAGR Intra-Op Record Summary Primary Physician: Sarabjit Blanco MD Finalized Date/Time: 12/15/22 09:41:51 Pt. Name: BINTA GRAVES/Sex: 1980 FEMALE Med Rec #: [id number] Physician: Sarabjit Blanco MD Financial #: [id number] Pt. Type: D Room/Bed: / Admit/Disch: 12/15/22 [...] Cox MA Role Performed Surgeon - Primary Special Police Special Police Time In 12/15/22 09:17:00 12/15/22 09:17:00 12/15/22 [...] Luke T RT (R) ARRT Role Performed Special Police Scrub Personnel Launch Steward Time In 12/15/22 09:17:00 12/15/22 09:17:00 12/15/22 [...] Agents (Im.270) Povidone-Iodine Prep By Vida Figueroa TERRITORY ACCOUNT REPRESENTATIVE Prep Area (Im.270) Back Prep Area Details Bilateral Skin Prep Agent Dry Yes Without Pooling Hair Removal Syntegrity Hair Removal Methods No hair removal performed Outcome Met (O.100) Yes Last Modified By: Jacqueline Matos RN (more content not included)... [facility] MAGR Preoperative Recordon 0 12-15-2022 MAGR Preoperative Record MAGR Pre-Op Record Summary Primary Physician: Sarabjit Blanco MD Finalized Date/Time: 12/15/22 09:34:52 Pt. Name: BINTA GRAVES KATIANA /Sex: 1980 FEMALE Med Rec #: [id number] Physician: Sarabjit Blanco MD Financial #: [id number] Pt. Type: D Room/Bed: / Admit/Disch: 12/15/22 [...] Signed By: Sharon Epstein RN 12/15/22 09:34 [facility] Operative Report - Surgeon/P reagan 12-15-2022 Operative [...] on: 12/15/2022 09:27 EDT] Sarabjit Blanco MD [facility] Patient Handouton 12-15-2022 Patient Handout Orthopedics Facet [...] these instructions at home: Medicines ? Take zwve-nwg-yuonfuk and prescription medicines only as told by [...] sugar if you have diabetes. ? Take hmmj-utu-pzuamzh and prescription medicines only as told by [...] provider. Document Revised: 06/11/2020 Document Reviewed: 08/27/2019 [employer] Patient Education ? 2021 [employer] Normal [facility] Test Urine 1 U Preg Negative [facility] Comment on above: Performed By: #### [id number] ####[facility] (DEFAULT)[address] [place] [address] U Preg Internal Control Pass [facility] Comment on above: Performed By: #### 3 [id number] ####[facility])[address] [place] [address] Coding Summaryon 12-06-2022 Coding Summary HTMLBase 64 JmwupbjqDLw3pXo+PGhlY WQ+ZA3ZFINnA07mkVStoD 0TS3oGTR4RSPESPODWAO4 SDX4vgFI7SRndU1VvkjGj IyomfFEfGF74FDs4IUF5m RscVYsjzO6sjUEiN5z6Kq ThYS16xE67NWsbNDIhFsO 3LjZpbjsgbWFy L0rjRbUcoASmWxe+PHRhY mxlIHdpZHRoPScxMDAlJy RwlDosRU6lAp9qFHKuBKI vbGxhcHNlOiBj q7axNDKcZYaaHS2atOkzU 7FvsDF0SNPgr2e6Pe55xY I+SAIsOMZ1eYqnRQaup81 0QgHcx6vlTPO7 iXJrRPolYFT8X17va8Y1E RVkDYPlMBE9vTY4uJ2wiG hgfbeoH2PtdXTrHtG0WVQ 6dZMhmH0xwGvv kvexaA6iYns+W37DWD8MS FIRCB1TPkn4N4DtEsijmM I+RU83ZXYvYL89hPQjmHX jo1hmoWl4DjWb BCChXBI2bMumIVgrl1OdS SJdL24odNQpi0W1CIAhiW irbDPnNmErxYW8rH2sGRu wpdxxg0stsqfk Bnhqh9mclx83nA76I45vQ HfeIDVnZXO2XBXsNITjfI zfyv2jxT5dEy8+UDryh5u aq1gonAu1GlWx TCAvfvXsfIctKMF6f6EmX r79V8GwhDlgk8PiKtm4rm 81gIUrp6U9dRM0SYddAWE laT1vJZbaEmP4 LYHaWpSooM29zFOmUBygP n5fiAzmeAmcKG0cCUOijn gyAYZwoG4bTTPtyWEssGc eMB0gTPHqjnwd g510KaFfHST3TQArbQVgP 0UqhA3sEiYcFQBwZETqD2 UelXRxBOrjH473GSslHmS 0ZUCnakTaB5Zt XETbwYhnBsD2o7N0Yr3Sh 3EilekzPUV9PYmmFXQgBd R0OeKqRlL7D2LpKpt4TXM cmHpsJQ4zI3Dh OQHthvzgdmqgiIW6IMXgM ULihY83iZMsUHetIs8gi1 M9y545GSCqSKVvjD58Tj1 udDogMTBwdCBU rA0whuadr7hkigqgVfIsG OKfULu2WVh1LCFwyQfzAd ElTTI2PpD4MSC0tWToaK8 syBdclmjqvY8t Oyc+F33dsL4rZFB0GKF2t ddwJDVtgvPfWW27SZ45D9 RyPjwvdGFibGU+PGRpdiB rnGjgBX0pIoHy j7tbj6KiUAgjZ8QtWJEpY DkjWhg5FSVyJRN4gLI5aA 1iBEYfOTdbh0D4iFK0Z0R wnxErst9zd6yl WYHzHJciX93dmBKso5S5V OXicZH5PKOlgGklQfXujX 93Oyc+XTAmyMyht5AnIeq vj4kyu7ohsPt2 WpTbVFTpmhQquFlmQXG5q 7XjWo32Z55aLBxhPUHaSQ DuSVOhLSFhdMsjbw5bqL1 wIi8+PGNvbCB3 aLG6aQ2cRIYvSyD6HMaaO 217TyJupIMwOlhxw6wsx1 qgmSj5JhArACJsohNpuJn kWIZ2j3UzJk47 B87bNKvxBBDjWYVyRVKpX GMmuPlbnj7ysG4mXh4+PC 6xx3qthj86xS00dCP+PHR rUAP3rUfwNDrn EQQrjN5qEKqfLdG3XOAnH wZwqK15dIWiEFmeDy3teX occElmZA3yDXJcbessu35 5HzHas9qdHYAm ePRmBOebIOQ5N54mh2K1E KDnPAJrFJJ9pAD6zV6qsA lnbjogbGVmdDsgdmVydGl lAPipDVyqT624 IHRvcDsnPlBhdGllbnQgT cJxGVc3R2OjMxm1HUYuzT iqTF2mpLNkKEllCl1vjQs hfVczIT4xUHMf ffbwy790MnAxm1tpMRHxq CNhRLpcIKS6S88et5Q8XX EhDOGfYRI0iSC9qW4cqTc nbjogbGVmdDsg wlJohAzfTBlpUHpwV675V HRvcDsnPkJpcnRoIERhdG W8ES87LN08fJEwo4M2cTA 9Q7KwMSEyarcm xhdxiDP7YWIaHGJpyX94C j4vrGsmQp7xYWGhMAC1TG TaoZVnQ3WxeG4kFeWnXCM eHRFrA9SkyVNl DYisC050YBzcPxZ2ZECci jPxN6HvMFEknGeoCmI6g6 K7Sw4PC4C1KK85HY82wQV ej3A5sOT4G7Ni ZQJcoktwfurxlNY4XNTvD HEnzH45Fh3ryOnuOe6eFR VsBYD8YJDbpOOsA2XucY4 yOiAjMDAwMDAw A1KjzYMsXXemG674OOolV rT0WQPwqbLuG9MdPTHzbK jaDjZ9l4R7Rz3TUZw0HD1 2QQ65vPCfz2L4 zQZ5V6QrTECcxprvaxyer YT4SRUrORPusK35Nb9vsW otDp2gKKMlNJS5MCTfbNL tC5DsvW1yAqAy MGWgGPHgV6QorHKvZAqpS 762VBvpJkF4XQRawrObS2 ImCVKfiAxrCiA1k6B6Yo8 FOQQnPE44GSK0 nKB5QO17BB93O6KlVhrau GFibGU+PHRhYmxlIHdpZH RoPScxMDAlJyBzdHlsZT0 zRb6xYNWhXKTy rLrsnNWpXzDxw7vfXVTdW TfaOY5tlPzcC5UylOU0EQ Htm0r9Nb28O52uU6VkgTU +FNGbeZC6bBU0 jF7hCgXcHoR4EKrlG154X rPqfSRxVjbzi9nij9pjjX b8RbQ3VQPzcuJsdXhxRGP 1q7ZdWp79R02m IHdpZHRoPSIxNSUiIHZhb Mzxyk8smV6vZm5+PGNvbC G8oBG4oY1dEmRcLjD0EYx bD353FtSfuWHk Hxtdv4gxe8nlfAk9UeBtD WPxgwRbjUweQBU8p9NmTj 53L0KewTune0QeMta5ro4 9eORlx6N8gFE1 F5TbRUMujvyxkQYkoJwlU P8hHQEpumsuSCErlU4zMH FcO3y6MsXxDtZ5VDhvQ2K bueT7UEKsiQJa ARtrKDF8D72fc0L2IZSmT GCrJQB1cOI2gU5snSbowy ogbGVmdDsgdmVydGljYWw wRMvfN932LIMl nPxrGGSapW9kUTKwmGKyt PqaBM9iQQMvquizJc5KIn RJTiwgRUxJWkFCRVRIIEF OTjwvdGQ+PHRk LBC2aVjyFTmePUHyrJ2bC UNdD5o7WnFuReL3JInoU8 XlFVNjfcgjQy70cH4yArF rZiX2NFdiF2Ux bqW3UVHgvUEgRLvmWJQ9E 64sj3S7ADQcDWKiSAR8jN M0dR4qdTgkgxwbiIHqrDy gdmVydGljYWwt GRlvJ443HFEddWiyIrC4E xIlBqA4DDK1F2NnHtf1TE LnpFpbXM0oaSOuRPfoSx2 pgKlasSjvWJ6p TCJujfhnTWTywZ0dPEOwa VVokMmdRT8pFURokcasy4 36YzKmQMU2SIEkgBGvL1M jcM6yPnUjGKGr WDIrY9OatLAdZRzlO151T BvdCfB6UZHikxPaV8YtNX VnwVgyMmR8b3X3Tz62YyQ ZZWFyczwvdGQ+ CWNpSDO3zDrvJSmsONFbv S0uDILgB9d1ZrClDtY8YE iiQ0JpPVIdgytnDj15pA8 uNxXiAwS7VCzj E7MsyeA8RMQkvUQvKGidI UD1F10wk1V2CAChEGFkLG S8dTR1xV8xuJqpgkxvfPJ mdDsgdmVydGlj UIdoAVstF513NXDjmPkpC kZFTUFMRTwvdGQ+PHRkIH L3zEziQZdjXCYriV9vRWE pO4k2BoTxAxB1 WDgeS9WiJDNayxmxEt81d P0mGnPcCmO6KSwbX9Zxwu X8ULXtiIWzLTegHJA4Q27 hf2W7PSZsZNYk PSL8fXJ5zC5csSmeyiuir GVmdDsgdmVydGljYWwtYW mvJ564OTKhbAyhFm5DOJ2 6WP56U5YdNrio dGFibGU+PHRhYmxlIHdpZ HRoPScxMDAlJyBzdHlsZT 2vSp7eAZTqKOUriSjcaPR xBfWbf2hjGLDc MDzbDW6ldDyoA6QfwVL5S NDys3i8Or42L46kR5HmjD A+DVDqtWO0dKZ0pY3qZkD aEcE7QVvfV662 KcGloVZbQrcgi2hnc5lou Lj8WlXlSHGudyDkdKogDE L3x0JsYr21C54bESoaGHM oPSIyMCUiIHZh eNgfub9wqR2mSc9+PGNvb KU8cRG3mB3gNxQxDhX1BC zuD551LrIseGYuXvgsW38 pC2PdwGT+PHRy Cms3AYSvsCbmDN3gsXWlW QsxKb9sSPT2UdCfDeEpUV xiB2QbHVZzvtukbyafwTA 6MBSbILItrE09 Fp4rvKswRv1fDEKkXLK1P NAptGCyH3LjuG5wCjEyYL RxTJSpC1OliXVcSGyaP28 8FVcdJuE9NXQi gqUnQ5XkPGYwaBmkHjY3b 2N7Ep9KfOahsTZbUK0vXm IcBCs1A7WkAzf2WKQmnIs tZN1ggWDqUYyu Sn8ujPdktAqbFQ9bMQFvr hkdr494YfGim5qgWWTbjA PbLVqxFUH2C09nf6W9IOH fVZNiJZK3cSR7 sY2rhRzsqtjyrTItvYhdr fSodIagTBskKXcwP421SX LqcAmjYgQBSrv2A4KoImo 9WXXsjDcyEP3x yIIkSBjmPf0ihMgpmXoiX I6iCNXevunbe546FvFyw3 nePIVmpTPdVItoWXD0D23 ml6O1STFxADWp WIH1sHL2kI3oaKrvceyxn GVmdDsgdmVydGljYWwtYW hpE639NYCyqVrgUc6HSlv 2U9VdMbx7KUAx sUjpMC7biBUeASjqPi5se SmfeLrcBY7nIPNnylbkr6 48YoLat4quDKUnoRFdVZt rOHP5Y61sy2K6 VLCaBCKzAAL9qWT9uM0si GlnbjogbGVmdDsgdmVydG gsWTdzRUyyF389DPBfoRq nPlBheWVyOjwv dGQ+RC32aw13M9NiOisdD sd0NLDzRNA5tBA9aE6rXZ AcIBpje7S6qFL3Z8ZjzqQ hpp5gl3pnFVHx ZTo (more content not included)... [facility] Progress Note - Provideron 0 12-06-2022 Progress Note - Provider [id number] [facility] Progress Note-Physicianon Progress Note-Physician DATE OF VISIT: [...] to proceed. Sarabjit Blanco M.D. JOB #: [id number] [Electronically Signed on: 12/08/2022 10:52 EST] Sarabjit Blanco MD [Verified on: 12/08/2022 10:52 EST] Sarabjit Blanco MD [Transcribed on: 12/03/2022 11:25 EST] [facility] Coding Summaryon 11-22-2022 Coding Summary HTMLBase 64 HtyykikgLGc2iFo+PGhlY WQ+WM2VVTCkG88qbZMopY 4CK1dHJW8EDAQTWUFLYP6 DOX4afQE0ZJhjG0RlhtGm StsfzEYpUB89KVf9SGH6o HyeVAjcmK0tuTKbD7a0Xg KkJE65hP84ZBwzDWOxAgF 3LjZpbjsgbWFy H8omAsHpzIFlMcw+PHRhY mxlIHdpZHRoPScxMDAlJy ZrrJtkLE0xDl6oYSRbXEX vbGxhcHNlOiBj x1xnLBCpBXdfNE2dpMymU 0XauQU6FEBrs9q7Uo68eZ I+GMVeRHM5kPrrEWcgp45 9SvVzw4xvKHT7 yHEgPZvmHAT3U12rm8J1A NMnOCMnUCU4aNO7eO6cwX gbrzmoU7LpuVZcLdK3YOT 2gFBspL3fxBjr eoligX0jDcr+L92RFY7YW SKCOH1BUfr8J3QyXnxfeJ I+GW14AZIpXS44tZDjpQV kj5bhqWm9LlZz NDHhMBS2gQkrXCvht9SdI GVtE61hhBMqz8T9VFPwuZ lqxUQtZgNpgBU4mQ6mCYg cjqakj1ymxuvh Nugzb1gcdb18lY09I67sJ PfmKEIkDOB1VUGvUXTkaZ bmlg3clX1yZp9+KXrcj5b yw4wcuJo0HsTv DMTkgnNyyQrsQAA8h3VrA m98R0XdnZpic5RxPzj2aq 10fRNky3N7gFG0TXszLKC izS8fIPvpGqY9 UQIoOrLzbT11aEXqDNohT o3boRttfOxiNX7lLKThni ouEVGgmD8kAVThrOMmqWt nXX3jWSJydewv f701OlWvWTV7GYXkqDOrL 2BqvB8kRkPrXIYbXIXnY4 BdpISjDRqxI389IBkkLcH 1ZHTplvHhW2Ji QGLfvLnyYeL9w2B9Ms9Dr 9WtvjkhKVG7YSrnEBXjAl NiMxKqWyR6W2DgEyg9NWT ufJstIH4qP4Ay KHWpbsssjcyrvNA4AZRuN CDtpQ18eFBjOEifOg8wt6 Y1v617FJVpPZVstV93Fw3 udDogMTBwdCBU xS8ciigbc4sdbiaeDrDvG UMcOIy6VVz9VHRzhKucOg AjVJI8YdB9IOR1lRWboE9 opAtyysqnpE2l Oyc+R51pgW4kLZM4BET1e yyqKHEbxxBgDY43ZT06B6 RyPjwvdGFibGU+PGRpdiB kvGwjJI6wSkFb s6ikl5QtJCqlZ8IjHDPlJ BjpNdu2VSHvDSI3kLM7sO 8gMXFdNSzcu5R2tGQ1Z9T bsnXcka3lf3gc GSKuQQtiI23lqWXlh6L0G SChpJV8YGQurRpxGfYufY 93Oyc+CXCyqSfjx4CdSli ba9kwe5qsdBu6 TzWdPTBngsMmwFnmXXA0b 9EvVd18P94wSMweUOGyXA JpGXMzAQOniJmyix1wdQ5 wIi8+PGNvbCB3 qWL7iU1qVCJoQqW5KQwzX 693RyWqoBMbVohkl3lyj3 ibpZc7LdCfUTZaewFuoBj jBAS2w9ByGw31 M62pXQrhLQFxVSLeVRAuN NJmeHhmze0jvI5wYb6+PC 7tn4cygg57oQ70sPA+PHR gMPV4eLydDVzi ZTLosF8oSVovKiC9RTGyD tCflR13jYGoTZizAz7wuC ovuPzjFL5fZCPzszfvp90 1JeKnz1fmOKOq nUUnYSulRGG0B80td1D1T ASjRUMaNQI6hKS2nM1fqV lnbjogbGVmdDsgdmVydGl vTFugOOkhN003 IHRvcDsnPlBhdGllbnQgT oSjFFh4T3ViMck6GCDdtP ooAZ5kwDEbGFxmTm4icZg asDvrQN6zRYTv fnqbm412TvQej5ugYAWuf CDaOXjyZKQ6S24ft3M2PD XqBAEiDBI2pLM0xV5ujDw nbjogbGVmdDsg gzJfuEruQEbjYHsrI835H HRvcDsnPkJpcnRoIERhdG D2IF98WJ08pULje1T3xDG 1I1XoQRUkiymo nmfjvYM1VAXvWJGhxP22Z w0dlDokLu7xJVMkZWJ3NZ WdpLOhS6VajL1aEvNxVHE pFIIhF1MiuZKk VCflR217YLvdQxF4VQMrz hUxS7DvDVOjzKdyAwU9c6 D1Wl2CV0H0VO48FU83gNA cy9V4mXY2B0Ag OOVnvfqhklosrTL7LZLeS IMagG67Ev6qxEkbGa1aSN YkXOE6RUCveYFqH4AlnC0 yOiAjMDAwMDAw B7HvpTLjQQuyE099OZbaB iX2OQKwfeJgQ5JeMCHzhZ ojVtT7e7P3Oe9HTCn1XA4 2QJ72vROnc4M1 dYB4B6HnPOQbkyjqtsmcr SK8PIXlTHWxlD23Ca1vfR laGf5wKGWwHOT0WXPfjWC gA6BmtI9bAsDy HORaIZZaM7VsxBGoCYilA 196EItfTbY8BTYzdtKvP7 BwUQGiaIxaSkQ1x7M8Uo0 NNEDySR83YYQ9 gVH5MQ40MU09Q6KmLrghu GFibGU+PHRhYmxlIHdpZH RoPScxMDAlJyBzdHlsZT0 aCi1oNCIkXXPh uElplMFkCuItp8krYPVgO ChvEF2wjDtiN5SgkLC7ZN Jyd6s9Lw41X10cN6MibGG +BXZftRK7qWG3 eZ3xXkYaAwT3DDubD033G hZnwNFtFzqio5bib4lkjF f7GxK4INFeazUlrVvgELP 8m2RlSf67E21o IHdpZHRoPSIxNSUiIHZhb Daefi2blT6sEz0+PGNvbC A7eXA4yF3gLmAwSjR1CIa pK675PtPziOIk Bgsad1hhw5gamVw6UeRsX UAbddMbnBbsFAL5k2FrBl 32P6QunEzvm5GvUys7gn4 8mNIpu9Z9oYL7 J5FxFJTwdmgyfTPznUymQ C9cAODdrrfgKZGomP5jQX SvA8e1EeOwEqV5WHgpJ4B zqgN5FHIieAUs XLiwBRX9A69qq2W6UTEcU GShJBP2gOK1dO2qqEgbfl ogbGVmdDsgdmVydGljYWw kXKzhO665PSBw cGgcMREcnJ2eFOZoxCCxw MmzYX7lSQIctoovSc3YPg RJTiwgRUxJWkFCRVRIIEF OTjwvdGQ+PHRk WXQ8pFeuVIzxEUHkzL1sA OWvQ4r3PeTmWcX8QYzlO8 AvEDAgyczeFg93iN2aXcZ dLlS4HHhgW3Ae hoV1XZCgaSKoOIsvHTS2F 22vo4G5FQQtJUIlGRS2vS U7jN6knTmpbzraqQQcaXw gdmVydGljYWwt OIuzE881MFHocBzkBkC1A kFaNuF6XCZ0I7AlWth2BS VqqYvqPP9htMXmBQrwRe1 rrZaziGrzDC3j EXUglyquRHPusP6jNSQyu EQakPojYA2tHTIrhtxzh5 07JkLnJGZ3OQEhnADoH3B sqG4bPuAeTFZd DZPfK6YhvISxLLngY603Y CotFfB5TBNswbHwL4EgKE PwmCzhUmV5n8C5Hk11ZbQ ZZWFyczwvdGQ+ KFSiFSZ6gKoqIEuaKAPop B1lCODtO2q4EnZyIcR4CP ruB6FjPGJxpaffSt29yY3 gCbOuCaC0EGnq Y6VeyuL6BOEvrKHkCGbmI XD7D32sg3K4FLMiKKYpMD H5oGB9kD0dpAuxhknjuHH mdDsgdmVydGlj LLxjIJepK511NDBfnOwgS kZFTUFMRTwvdGQ+PHRkIH T2hEylRDdrCKSplY2mTSZ rC6d1NpNiYuL0 GBokP7HmLIUgybjqBg88h N3oNiZaKaE3ZQpnX7Agmx H8AZVajZWmPBoaNMU2N12 zb2R8CZQtWYWv GJR7sOW7lK6lgPcnzznis GVmdDsgdmVydGljYWwtYW dwL274XNNraUbjRe1LTL6 4SG23P5QuCjuc dGFibGU+PHRhYmxlIHdpZ HRoPScxMDAlJyBzdHlsZT 6xCw8nJNXwBFMicObxvWZ wImBcc1vnOECx KYbtOS4zaNkcX7PepPN5C NOaj7y4Bg76I43nA2UblT A+BRCrvVM8cRF0yF7qMbT xQeD7YNlwT211 LfIsmWKcPbars0dgf3xqf Nh1ItPvIYTlusOztQldNK P0h1RdFr64R38nKRsiBDR oPSIyMCUiIHZh aFzskf7gvM9lOd0+PGNvb DD3rUU1gW3pGoTyQfV9EV jpR307XuXrpBNsNkcbU98 yG3AhvQZ+PHRy Lqq4WRVgyUmoTD7itGHqY TbmUa8aMWN1TzMdKuKuTU ykI0WgODEbqfotknyseFO 8VRCeHQXzxB31 Ws2umGmcPu0pTRAzBGO8J UEpdHPkS2LsvT0wDoYxJI GgBXZvJ8ZmbDTeEEzsE50 2XJkjYzA7EQGw niUqR1NdAYQbyLclDaU0p 5W4Lk8NvMtgqLCzHE7fKs MsZEr4X2PuVod8OUTunUb rOQ7rdHYfWWnh Fa7ocGitqBkmJY1tHQAnx mtlz991ZcGwj4adEFOksH FtXPfvXKL4O28nt7S9GYF fNYUkUCQ2kKI7 hV0sxVjihvbghPEseJaqf ySfzGrgWCbeIAqfW512NB DniFbvRrOIDdr2H4KlMfi 7ESWrdEouLQ2y iTOvMEocJg6lsZmhkSciJ N5bPELcmswuf392JxThp5 ebEZIfkATlFLqfRXI0Z90 fu6N3NWYwQLMv DZK8wVO0jK8vaJynatzhv GVmdDsgdmVydGljYWwtYW unN923DDXtvMbnGs6VMms 1M9KdNoq9KYJk pAbmIJ3ofBCmFSeoSt1rg TozwUabOO1eVGZghnreq2 13AkTyx5esLJRfzVDqNYi aHJG5E36bq0Z3 IHKyYRHzMSC6kRZ6oT4ui GlnbjogbGVmdDsgdmVydG gnKGezPDpwM517IUQeaTo nPlBheWVyOjwv dGQ+IL06xv79I3LeNfosQ zd7EWPaPGT5kAL3dA3uOI ZwMFxec8Y6jVL2A7EhvvE ohj8jr1chVLUy ZTo (more content not included)... [facility] XR Spine Lumbosacral Complet e w/ Bendingon [...] Navarro DO 11/21/22 10:49 a Technologist: GEOFF [facility] MRI LUMBAR SPINE W WO CONTRA STon 05-20-2020 MRI LUMBAR SPINE W WO CONTRAST [facility] Department of Radiology [address] [place] [address] Patient Name: BINTA GRAVES : 1980 Sex: F Age: Race: White Pt. Location: Patient Status: D Ordered Date: 05/02/2020 2:00:00 PM Completed Date: 05/20/2020 02:21 PM Requesting Provider: ZAYDA FRAZIER Attending Provider: ZAYDA FRAZIER Report Copy To: Signs & Symptoms: M54.16 Radiculopathy, lumbar region I10 History: [facility] Comments: , Recent lumbar surgery, postop numbness left perineum and left leg, evaluate for nerve compression. , Recent lumbar surgery, postop numbness left perineum and left leg, evaluate for nerve compression. , , , Ordering Provider - A FREDDIE CLAROS BENEFITS COUNSELOR , Exam: MRI LUMBAR SPINE W WO [...] reports Electronically signed: Yamileth Barragan. Transcribed by: [email or web address], User Resident: ROSITA SINGER Electronically Signed by: YAMILETH BARRAGAN @ 05/27/2020 12:36 PM I personally read this/these film(s) with this resident Normal The [facility] Comment on above: Order Comment: The A ptima SARS-CoV-2 assay is a nucleic acid amplification test intended for the qualitative detection of RNA from SARS-CoV-2 isolated and purified from nasopharyngeal (EVENT PRODUCER), nasal and oropharyngeal (OP) swab specimens from patients with signs and symptoms of infection who are suspected of COVID-19. Results are for the identification of SARS-CoV-2 RNA. The SARS-CoV-2 RNA is generally detectable in nasopharyngeal and oropharyngeal swabs during the acute phase of infection. The Aptima SARS-CoV-2 Assay on the [employer] and [employer] Fusion system is intended for use by laboratory personnel specifically instructed and trained in the operation of the [place] and [employer] Fusion system. The Aptima SARS-CoV-2 assay is [...] Reporton 0 Operative Report MR#: [id number] I [facility] Pt. Name: Binta Graves Room #: 5AB [id number] Discharge 03/09/2020 Date: Birthdate: 1980 OPERATIVE REPORT [...] Traylor MD Date Trans: 03/21/2020 04:34 P/chrissy [id number] cc: Jerod Deleon M.D. [address] [facility] [address] Normal [facility] *MRSA/MSSA DNA NASALon 03-07 *MRSA/MSSA DNA NASAL Clinical Report: (D ) Specimen: NASAL SWAB Collected: 03/07/2020 10:30 Status: Final Last Updated: 03/07/2020 16:47 MSSA DNA (Final) Negative MRSA DNA (Final) Negative Normal [facility] Comment on above: Performed By: #### 3 1595 #### [facility] [address] [place] [address], [place] BASIC METABOLIC PANELon 06-0 -2019 Calcium [Mass/Vol] 8.9 mg/dL Normal 8.6-10.3 [facility] Comment on above: Order Comment: No: D o not add to previous draw Performed By: #### 4 1000, [id number], 13856 #### [facility] [address] [place] [address], [place] Chloride [Moles/Vol] 105 mmol/L Normal 98-107 [facility] Comment on above: Order Comment: No: D o not add to previous draw Performed By: #### 4 1000, [id number], 31057 #### [facility] [address] [place] [address], [place] CO2 [Moles/Vol] 24 mmol/L Normal 21-31 [facility] Comment on above: Order Comment: No: D o not add to previous draw Performed By: #### 4 1000, , 08558 #### [facility] [address] [place] [address], [place] Creatinine [Mass/Vol] 0.75 mg/dL Normal 0.60-1.20 [facility] Comment on above: Order Comment: No: D o not add to previous draw Performed By: #### 4 1000, , 77003 #### [facility] [address] [place] [address], [place] GFR/1.73 sq M predicted among blacks MDRD (S/P/Bld) [Vol rate/Area] mL/min/{1.73_m2} Normal >60 [facility] Comment on above: Order Comment: No: D o not add to previous draw Performed By: #### 4 1000, 11804, 34916 #### [facility] [address] [place] [address], [place] GFR/1.73 sq M predicted among non-blacks MDRD (S/P/Bld) [Vol rate/Area] mL/min/{1.73_m2} Normal >60 [facility] Comment on above: Order Comment: No: D o not add to previous draw Performed By: #### 4 1000, , 68104 #### [facility] [address] [place] [address], [place] Glucose [Mass/Vol] 92 mg/dL Normal 70-100 [facility] Comment on above: Order Comment: No: D o not add to previous draw Performed By: #### 4 1000, , [id number] #### [facility] [address] [place] [address], [place] Potassium [Moles/Vol] 3.8 mmol/L Normal 3.5-5.1 [facility] Comment on above: Order Comment: No: D o not add to previous draw Performed By: #### 4 1000, , [id number] #### [facility] [address] [place] [address], [place] Sodium [Moles/Vol] 136 mmol/L Normal 136-145 [facility] Comment on above: Order Comment: No: D o not add to previous draw Performed By: #### 4 1000, , 51861 #### [facility] [address] [place] [address], [place] Urea nitrogen [Mass/Vol] 20 mg/dL Normal 7-25 [facility] Comment on above: Order Comment: No: D o not add to previous draw Performed By: #### 4 1000, , 93235 #### [facility] [address] [place] [address], [place] CBC COMPLETE BLOOD COUNTon - Erythrocyte distribution width (RBC) [Ratio] 13.4 % Normal 11.5-15.0 [facility] Comment on above: Order Comment: No: D o not add to previous draw Performed By: #### 5 0608 #### [facility] [address] [place] [address], [place] Hematocrit (Bld) [Volume fraction] 44.1 % Normal 36.0-45.0 [facility] Comment on above: Order Comment: No: D o not add to previous draw Performed By: #### 5 0608 #### [facility] [address] [place] [address], [facility] Hemoglobin (Bld) [Mass/Vol] 14.4 g/dL Normal 12.0-15.0 [facility] Comment on above: Order Comment: No: D o not add to previous draw Performed By: #### 5 0608 #### [facility] [address] [facility] [place] [place] [address], [facility] MCH (RBC) [Entitic mass] 27.0 pg Normal 27.0-33.0 [facility] Comment on above: Order Comment: No: D o not add to previous draw Performed By: #### 5 0608 #### [facility] [address] [place] [address], [facility] MCHC (RBC) [Mass/Vol] 32.7 g/dL Normal 32.0-35.0 [facility] Comment on above: Order Comment: No: D o not add to previous draw Performed By: #### 5 0608 #### [facility] [address] [facility] [place] [place] [address], [facility] MCV (RBC) [Entitic vol] 82.7 fL Normal 82.0-98.0 [facility] Comment on above: Order Comment: No: D o not add to previous draw Performed By: #### 5 0608 #### [facility] [address] [facility] [place] [place] [address], [facility] Nucleated RBC/100 WBC (Bld) [Ratio] 0 % Normal 0-0 [facility] Comment on above: Order Comment: No: D o not add to previous draw Performed By: #### 5 0608 #### [facility] [address] PLAT CNT 194 10*3/uL Normal 150-400 The [facility] Comment on above: Order Comment: No: D o not add to previous draw Performed By: #### 5 0608 #### [facility] [address] RBC (Bld) [#/Vol] 5.33 10*6/uL High 3.80-5.00 The [facility] Comment on above: Order Comment: No: D o not add to previous draw Performed By: #### 5 0608 #### [facility] [address] WBC (Bld) [#/Vol] 8.71 10*3/uL Normal 4.00-10.60 The [facility] Comment on above: Order Comment: No: D o not add to previous draw Performed By: #### 5 0608 #### [address] LUMBAR SPINE 2 OR 3 [facility] LUMBAR SPINE 2 OR 3 [facility] Department of Radiology [address] [place] [id number] Patient Name: BINTA GRAVES : 1980 Sex: F Age: Race: White Pt. Location: [id number] Patient Status: I Ordered Date: 03/07/2020 1:00:00 PM Completed Date: 03/07/2020 08:11 PM Requesting Provider: DAKOAT TRAYLOR Attending Provider: ARNEL GARSIA Report Copy To: Signs & Symptoms: L6-S1 microdiscectomy History: Comments: L6-S1 microdiscectomy Exam: LUMBAR SPINE 2 OR 3 S Intraoperative fluoroscopic guidance HISTORY: Microdiscectomy. COMPARISON: Lumbar spine MRI 03/06/2020. IMPRESSION: 1. Hardware projects posterior to the lumbosacral region, please see details within operative report. 29 seconds of fluoroscopy time, 5 images. Electronically signed: Moris Vegas. Transcribed by: [email or web address], User Resident: Electronically Signed by: MORIS VEGAS @ 03/08/2020 08:49 AM Normal The [facility] Comment on above: Order Comment: The A ptima SARS-CoV-2 assay is a nucleic acid amplification test intended for the qualitative detection of RNA from SARS-CoV-2 isolated and purified from nasopharyngeal (EVENT PRODUCER), nasal and oropharyngeal (OP) swab specimens from patients with signs and symptoms of infection who are suspected of COVID-19. Results are for the identification of SARS-CoV-2 RNA. The SARS-CoV-2 RNA is generally detectable in nasopharyngeal and oropharyngeal swabs during the acute phase of infection. The Aptima SARS-CoV-2 Assay on the [employer] and Intrepid [employer] Fusion system is intended for use by laboratory personnel specifically instructed and trained in the operation of the [place] and [place] Fusion system. The Aptima SARS-CoV-2 assay is [...] 03-07-2020 Magnesium [Mass/Vol] 1.9 mg/dL Normal 1.9-2.7 [facility] Comment on above: Order Comment: No: D o not add to previous draw Performed By: #### 4 1000, [id number], [id number] #### [address] OUTSIDE CONSULT NEUROon OUTSIDE CONSULT NEURO [facility] Department of Radiology [address] [place] [id number] Patient Name: BINTA GRAVES : 1980 Sex: F Age: Race: White Pt. Location: [address] [place] [address] Patient Status: I Ordered Date: 03/06/2020 7:05:00 PM Completed Date: 03/07/2020 11:41 AM Requesting Provider: DAKOTA TRAYLOR Attending Provider: ARNEL GARSIA Report Copy To: Signs & Symptoms: NEED CONSULT History: Lumbosacral transitional anatomy CT of the L-Spine without contrast done on 03/04/2020 At the [facility] Requesting Dr. Dakota Traylor Comments: Exam: OUTSIDE CONSULT NEURO OUTSIDE CONSULT NEURO 03/07/2020 11:41 AM OUTSIDE STUDY: Lumbar spine CT scan TECHNIQUE: Outside CT images of the lumbosacral spine obtained from the [facility] dated March 04, 2020. Image review with [...] interpretation. Electronically signed: Ольга Johnson. Transcribed by: [email or web address], User Resident: Electronically Signed by: ОЛЬГА JOHNSON @ 03/07/2020 01:03 PM Normal [facility] PHOSPHORUS BLOODon 0 Phosphate [Mass/Vol] 3.5 mg/dL Normal 2.5-5.0 [facility] Comment on above: Order Comment: No: D o not add to previous draw Performed By: #### 4 1000, [id number], [id number] #### [facility] [address] [place] [address], [facility] POC GLUCOSE LABon 03-07-2020 Glucose [Mass/Vol] 97 mg/dL Normal 70-100 [facility] Comment on above: Performed By: #### 8 [id number] #### [facility] [address] [place] [address], [facility] TYPE AND SCREENon 03-07-2020 ABO INTERPRETATION O Normal [facility] Comment on above: Performed By: #### 6 2586 #### [address] [address], [facility] RH INTERPRETATION Negative Normal [facility] Comment on above: Performed By: #### 6 2586 #### [facility] [address] [facility] [place], [place] [id number] [place] [address] *SARS-CoV-2 COVID-19on 03-06 [id number] Not Detected Normal Not Detected [facility] Comment on above: Order Comment: The A ptima SARS-CoV-2 assay is a nucleic acid amplification test intended for the qualitative detection of RNA from SARS-CoV-2 isolated and purified from nasopharyngeal (EVENT PRODUCER), nasal and oropharyngeal (OP) swab specimens from patients with signs and symptoms of infection who are suspected of COVID-19. Results are for the identification of SARS-CoV-2 RNA. The SARS-CoV-2 RNA is generally detectable in nasopharyngeal and oropharyngeal swabs during the acute phase of infection. The Aptima SARS-CoV-2 Assay on the [employer] and [place] Fusion system is intended for use by laboratory personnel specifically instructed and trained in the operation of the [place] and [place] Fusion system. The Aptima SARS-CoV-2 assay is [...] information. Performed By: #### 3 1792 #### [address] [address], [facility] MRI LUMBAR SPINE WO CONTRAST on 03-06-2020 MRI LUMBAR SPINE WO CONTRAST [facility] Department of Radiology [address] [place] [phone] Patient Name: BINTA GRAVES : 1980 Sex: F Age: Race: NA Pt. Location: [id number] Patient Status: I Ordered Date: 03/06/2020 6:40:00 [...] narrowing Electronically signed: Yamileth Barragan. Transcribed by: [email or web address], User Resident: Electronically Signed by: YAMILETH BARRAGAN @ 03/06/2020 07:54 PM Normal [facility] Comment on above: Order Comment: Spina l Stenosis, patient with left s1 radicular type pain - has transitional lumbo-sacral anatomy based on CT scan Encounters Encounter Date Encounter Type Care Provider Facility Start: 02-13-2024 End: 02-14-2024 ambulatory Karina Rodriguez MD Facility:[facility] Start: 02-09-2024 End: 02-10-2024 ambulatory [facility] Start: 02-01-2024 End: 02-02-2024 ambulatory [facility] Start: 01-20-2024 End: 01-20-2024 ambulatory JEROD DELEON Not Available Start: 12-28-2023 End: 12-29-2023 ambulatory [facility] Start: 12-16-2023 End: 12-16-2023 ambulatory JEROD DELEON Not Available Start: 02-25-2023 End: 02-26-[address] JEROD DELEON Facility: Start: 12-29-2022 End: 12-29-2022 ambulatory Sarabjit Blanco Facility:[facility] Start: 12-22-2022 End: 12-23-2022 ambulatory Sarabjitisabel Blanco Facility:[facility] Start: 12-15-2022 End: 12-15-2022 ambulatory [facility] Facility:[facility] Start: 12-01-2022 End: [facility]-02[facility] Start: 11-19-2022 End: 11-20-2022 ambulatory [facility] Facility:[facility] Start: 12-31-2021 Transcribe Orders [facility] Phys[facility] Referral [facility] Start: 05-20-2020 End: 05-21-2020 Patient encounter procedure Zayda Frazier [facility] Start: 03-06-2020 End: 03-09-2020 Evaluation and management of inpatient ARNEL GAVINO [facility] Procedures Date Procedure Procedure Detail Performing Clinician Start: 03-07-2020 EXCISION OF LUMBOSAC RAL DISC, OPEN APPROACH DAKOTA TRAYLOR Start: 03-07-2020 RELEASE SACRAL NERVE , OPEN APPROACH DAKOTA TRAYLOR Start: 03-07-2020 Antibody screen ARNEL MA MAGY Comment on above: Performed By: #### 6 2586 #### [facility] [address] Plan of Treatment Date Care Activity Detail Author Start: 05-03-2021 Influenza vaccination Influenza Vacc ine (#1) [facility] Start: 2001 Screening for malign ant neoplasm of cervix Pap Smear [facility] Start: 1998 Hepatitis C screening Hepatitis C An tibody [facility] Start: 1998 Tetanus + diphtheria + acellular pertussis vaccine (product) Tdap Booster [facility] Start: 1995 HIV screening [facility] Start: 1985 COVID-19 Vaccine (1) COVID-19 Vaccin e (1[facility] Payers Date Payer Category Payer Unknown [id number] 2022 Unknown [id number] 2021 Unknown [id number] 1980 Unknown [id number] 2.16.8 [id number] 1980 Unknown [id number] 2.16.8 [id number] 1980 Unknown [id number] 2.16.8 [id number] 1980 Unknown [id number] 2.16.8 [id number] 1980 Unknown [id number] 2.16.8 [id number] 1980 Unknown [id number] 2.16.8 [id number] 1980 Unknown [id number] 2.16.8 40.1.521972.3.579.2.718 1980 Unknown [id number] 2.16.84 0.1.852522.3.579.2.9 1980 Unknown [id number] 2.16.84 0.1.202385.3.579.2.1259 1980 Unknown [id number] 2.16. [id number] 1959 Self-pay [id number] Unknown [id number] 2.16.84 [id number] Social History Date Type Detail Facility Tobacco smoking stat [facility] Tobacco smoking consumption unknown [facility] Start: 1980 [facility] 12-30-2022 Note Date & Type Note Facility 12-30-2022 Note [id number] [facility] Clinical Note 12-29-2022 Note Date & Type Note Facility 12-29-2022 Note [facility] Clinical Discharge Summary PERSON INFORMATION Name BINTA GRAVES Age 42 Years 1980 Sex FEMALE Language Setswana PCP JEROD DELEON Marital Status Med Service Pain Management Surgery Acct# Arrival 12/29/2022 07:38:41 Visit Reason LOW BACK PAIN Acuity LOS 012 22:22 Address: [address] [place] [address] Comment: PROVIDER INFORMATION VITALS INFORMATION Vital Sign [...] spine; Lumbar spondylosis Comment: PHYS DOC NOTES [facility] History and physical note 12-28-2022 Note Date & Type Note Facility 12-28-2022 Note [id number] FF The patient has been examined and the medical record reviewed. The indications for surgery and exam are unchanged. [Electronically Signed on: 12/29/2022 08:15 EDT] Sarabjit Blanco MD [Verified on: 12/29/2022 08:15 EDT] Sarabjit Blanco MD [Transcribed on: 12/28/2022 14:33 EDT] [facility] Medication management note 12-16-2022 Note Date & Type Note Facility 12-16-2022 Note [id number] FF [facility] Clinical Note 12-15-2022 Note Date & Type Note Facility 12-15-2022 Note [facility] Clinical Discharge Summary PERSON INFORMATION Name BINTA GRAVES Age 42 Years 1980 Sex FEMALE Language Setswana PCP JEROD DELEON Marital Status Med Service Pain Management Surgery Acct# Arrival 12/15/2022 07:50:00 Visit Reason LOW BACK PAIN Acuity LOS 012 00:14 Address: [address] [place] [address] Comment: PROVIDER INFORMATION VITALS INFORMATION Vital Sign [...] spine; Lumbar spondylosis Comment: PHYS DOC NOTES [facility] History and physical note 12-15-2022 Note Date [...] Anterolisthesis of lumbosacral spine / SNOMED CT 305604397 / Confirmed Lumbar spondylosis / SNOMED CT 496067266 / Confirmed, Active Problems (2) Anterolisthesis of lumbosacral spine Lumbar spondylosis Histories Family History: No family history items have been selected or recorded. Procedure history: Facet joint nerve block ([id number]) on 12/15/2022 at 42 Years. Comments: 12/15/2022 [...] 08:00) DBP H 98 mmHg (DEC 15 08:00) Weight 118.90 kg (DEC 15 08:00) Height 172.72 cm (DEC 15 08:00) , Measurements from flowsheet : Measurements 12/15/2022 8:00 EDT Height 172.720 cm Height/Length Dosing 172.720 cm Weight 118.900 kg Weight Dosing 118.900 kg Body Mass Index 39.860 kg/m2 General: Alert and oriented. Eye: Pupils are equal, round and reactive to light. HENT: Normocephalic. Neck: Supple. Respiratory: Lungs are clear to auscultation. Cardiovascular: Normal rate. Gastrointestinal: Soft, Non-tender, Non-distended. Integumentary: Warm, Dry, [place]. Neurologic: Alert, Oriented. Psychiatric: Cooperative. Review / Management Results review: Lab results: 12/15/2022 8:04 EDT U Preg Negative . Impression and Plan Lumbar Spondylosis , Procedure explained to patient along with risks of possible complications and patient wishes to proceed. [Electronically Signed on: 12/15/2022 09:04 EDT] Sarabjit Blanco MD [Verified on: 12/15/2022 09:04 EDT] Sarabjit Blanco MD [facility] History and physical note 12-14-2022 Note Date & Type Note Facility 12-14-2022 Note [id number] IFF The patient has been examined and the medical record reviewed. The indications for surgery and exam are unchanged. [Electronically Signed on: 12/15/2022 09:02 EDT] Sarabjit Blanco MD [Verified on: 12/15/2022 09:02 EDT] Sarabjit Blanco MD [Transcribed on: 12/14/2022 13:35 EDT] [facility] Evaluation note Note Date & Type [...] Records Found Hospital Course Note MR#: [id number] [facility] Pt. Name: Binta Graves Admitted: 03/06/2020 Discharged: 03/08/2020 Date of : 1980 Physician: Arnel Garsia MD DISCHARGE SUMMARY PRIMARY CARE PHYSICIAN: None. CONSULTING PHYSICIAN: [facility] FINAL DIAGNOSES: 1. Acute lumbar radiculopathy/lumbar spine stenosis, status post laminectomy, doing well. 2. Essential hypertension, stable. 3. Polycystic ovarian disease, on metformin. 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 WEIGHT MANAGEMENT SERVICE REQUEST LVL 3 EST PT, LOW MDM, 20-29 MINUTES Jerod Deleon MD [address] [place] [address] Weight Management [facility] [employer] [place] [address] Referral ID Status Reason Start Date Expiration Date V isits Requested Visits Authorized [id number] Authorized 12/31/2021 12/31/2022 10 10 Additional Source Comments INFORMATION SOURCE (unrecogn ized section and content) DATE CREATED AUTHOR 05/28/2020 [facility] DATE CREATED AUTHOR AUTHOR'S ORGANIZ ATION 03/11/2023 [facility] DATE CREATED AUTHOR AUTHOR'S ORGANIZ ATION 03/11/2023 [facility] DATE CREATED AUTHOR AUTHOR'S ORGANIZ ATION 01/21/2024 [facility] DATE CREATED AUTHOR AUTHOR'S ORGANIZ ATION 02/11/2024 [facility] DATE CREATED AUTHOR AUTHOR'S ORGANIZ ATION 02/18/2024 [facility] FOR RECORDS PERTAINING TO PATIENTS WHO [...] BE BASED ON THE PRIMARY CLINICAL RECORDS. [employer] provides no warranty or guarantee of the accuracy or completeness of information in this document.
[2024-02-20 11:13] VITALS: BP 138/96; PULSE 99; TEMP 36.3; O2SAT 97
[2024-02-20] MEDS: 0.9 % SODIUM CHLORIDE 10 ML SYRINGE - SALINE FLUSH INJ (11:59)
[2024-02-20] MEDS: IOHEXOL 240 MG/ML - 10 ML VIAL INJ (12:00)
[2024-02-20] MEDS: TRIAMCINOLONE ACETONIDE 40 MG/ML VIAL INJ (12:00)
[2024-02-20] MEDS: LIDOCAINE HCL 2% PF 100 MG/5 ML VIAL INJ (12:00)
[2024-02-20] MEDS: BUPIVACAINE HCL 0.25% PF 25 MG/10 ML VIAL INJ (12:00)
--- NOTE | 2024-02-20 12:04 | W.PM.PROCNOT ---
Date of procedure: 02/20/24 Pre-op diagnosis: Lumbar stenosis with neurogenic claudication Post-op diagnosis: same as pre-op Procedure: Procedure: Bilateral S1-2 transforaminal epidural steroid injection Medications: Bupivacaine 0.25% 2cc, lidocaine 2% 1cc, kenalog 80mg The patient was seen and examined in the preoperative holding area.? Informed consent was obtained and placed on the chart.? Patient was brought to the medical procedure unit and placed in the prone position where a timeout was completed verifying the correct patient, procedure site, position, and planned special equipment using sterile aseptic technique.? Under direct fluoroscopic visualization a 25-gauge Quincke tipped spinal needle was advanced at level left S1-2 to the designated neural foramen where contrast dye was injected to show adequate spread.? There was no evidence of vascular or adverse uptake.? Epidural spread was appreciated.? The above-mentioned injectate was then placed in a 1.5 mL aliquot preceded by negative aspiration.? The needle was removed. The same procedure, at the same level, was completed on the opposite side. ? Patient was taken to the postprocedural recovery area and monitored for an appropriate length of time before found suitable for discharge in the accompaniment of a responsible adult. Anesthesia: Local Surgeon: Karina Rodriguez Pathology: none sent Condition: stable Disposition: no change
[2024-02-20 12:05] VITALS: BP 158/91; BP 161/101; PULSE 83; PULSE 94; O2SAT 98
== END 2024-02-20 12:08 | disposition home or self-care (01) ==
PROVIDERS: PCP Family Medicine; Visit Provider Anesthesiology
DX: M48.062 Spinal stenosis, lumbar region with neurogenic claudication (principal)
CPT/HCPCS: 64483; Q9966

== ENCOUNTER 2024-06-07 07:15 | Outpatient (OUT) | payer BC, SELFPAY ==
--- OUTSIDE RECORDS SUMMARY | 2024-06-07 07:18 | XMS_ITS | CCD ---
Author Organization [facility] Care Team Providers Care Textile Finisher Name Role Phone GAVINO, ARNEL Admitting Unavailable GAVINO, ARNEL Attending Unavailable MEENAKSHI SAMMI A Referring Unavailable NADERER, JEROD Primary Care Unavailable AL Procedure Practitioner Unavailab le UNKNOWN, PROVIDER Surgeon Unavailable Ovtriston, Zayda Admitting Unavailable Ovitt, Zayda Attending Unavailable NADERER, JEROD Referring Unavailable NADERER, JEROD Primary Care Unavailable Unavailable Primary Care Provider UnavailDR JEROD Cerda Primary Care Unavailable ANATOLIY ., CALIXTO Attending [...] Unavailable NADERER, JEROD A Primary Care Unavailable TRAYLOR, DAKOTA Referring Unavailable TRAYLOR, DAKOTA Referring Unavailable TRAYLOR, DAKOTA Referring Unavailable TRAYLOR, ADKOTA Attending Unavailable Kathyitis , Karina Sauceda Attending Unavailable Jennifer ARZOLA, Karina Sauceda Attending Unavailable NADERER, JEROD Attending Unavailable NADERER, JEROD Attending Unavailable NADERER, JEROD Attending Unavailable NADERER, JEROD Attending Unavailable Allergies Allergy Classification Reported Allergen(s) Allergy Type Date of Onset Reaction(s) Facility (1 source) No Known Medication Allergies; Translations: [No Known Medication Allergies] Propensity to adverse reactions to drug (disorder) [facility] Repository (1 source) ALLERGIES NOT ON FILE; Translations: [ALLERGIES NOT ON FILE] Propensity to adverse reactions (disorder) [facility] Repository Problems Problem Classification Problem Date [...] Range Facility Orders Onlyon 01-18-2024 Orders Only [id number] Binta Graves 1980 F Date Provider Department Center 01/18/2024 ZAYDA MARTINS ONC DCC No family history on file Normal [facility] Coding Summaryon 03-03-2023 Coding Summary HTMLBase 64 DpeimesdOYj3nIl+PGhlY WQ+AC6GADFcC47zvUMhkL 8jP7SUDZnFFvedYTRDONc IAmUovbHiPI6jiJQiWYGr IC8+HH7hPIOfBpvrxEFgg 6H8dCP4U46wmy2oLZxkmS G9TSFbJbTkauwjo6vwbSx 6IDcuNmluOyBt NUBjjM46QVS2eB97Ak07e YYooWDah7nohYg5LsPmKB OlKNU1pTddRSulj0RfXTS vR53hwILeu6F2 MEMbzXcssPBjRbLlkUE3l D6tYWohdzmsi6cjmbjuAj r5ya93nJLnd7E0bHV2G4Z tqbK9SVZmjARh XxtyhPXQaS5dzyhxp8jur nxhMrMvVKIxJKv1IQm5UL WvpDffZeEaQU11VIG8WQL bbuZdZ8FcMZJy hBnkOsG4q6I1Er3CW1EKA ugpS0UXJQFCBBvsyBQ+PC 61ff81Y3XtGrmwUuf0HYG fXSU4pBZ6fS4w KLFwDWace2P9kBZ4T7Ytk fNufe7lq1jdJSQaBDqpJ7 4tvFRaa6U2ESYniAG7KFQ ioAegWnZjyT90 Oyc+OVCmkYfui7GsDgvlz 6bdc0tdkGy0YywjMDCibj FhjMgmHVN1s0SqBd3kRIJ uwDF0nNU3kH7h LkEpMfT9JVkqO671LlZgp QDnYqbwR13cP8EijZK+PH QvFaf8FUMemQwuYL1iV9O hZGRpbmctbGVm pOzpWL6pVFQyjrjkIZNpq F3tCYXjC8b8GyWhKkQ2XC nlR0TwINRcpkdcPd43kT2 kGmMvQhA5ZNgq E4LhqtY1LOXwtGBiDIkhG YX5A44ov6Z9XEDtIZEgME V0sEI6vX0qlQvogjmiwTN mdDsgdmVydGlj OAseEUpjW386CBUcpLigL kNvZGluZyBEYXRlOiAgMD YvMDEvMjAyMzwvdGQ+PHR uPXE5bXlfNHUm eGAjYYpxBz3kcSvphYeaS B6hVMWgrfzoDUOeqR4uYA TkpSWpvRwdFJ3gMAKnqor pt593PdAdUZI7 RUNpzBSiP4ZwfX7dUrTuX ZMoRHPrB0TrhPGqUIojM6 58TWpaNwX4OEKrqeMcS1P sLWFsaWduOiB0 n2F6Ay7Ue6KpgdlqX9Wru CEnIeCtUeqwGSe9H3NpZi wvdHI+GW79QQAaYX43ABf 5EHH4fYpbBPkt LZHdB8NasF3lZeQtGVUdO GRkOyc+PHRhYmxlIHdpZH RoPScxMDAlJyBzdHlsZT0 iKb1sKIMzLMPb iViknQBxSrHuo9fvXHYvR WjiLO9egXgdH0IznBK9DN Urp5n0So79I52kX4LhcJN +GKPszEF5yFH4 oA9pWnIcCyP0TTfxH270C fXvkPWnWuric4rwx0bnwH x5YjE6NEWdxaLosJiiMCR 5c7BrEv62V75w IHdpZHRoPSIxNSUiIHZhb Gtcmz8iwO4nZv5+PGNvbC E3cNY0dG2fNhTuFwS7PPx mY666MfAkvXBe Psxsk8sfz5sxnVe1ZtOvA OHalqIbzRdaJRF0y5BqXq 08P1CtbKvnl7DvDzc9au9 8jJGpf8B2zVS3 I8StPRWomdnblZPorEzwR Y2tDUKdrrxlCJNcrY9eHX CoP6s1FgYjQlN6MRbtT2E pkbL9AUAuxZEk ENYqbTKTfK8mylays4kes wsuUlAuOUIrOAt1KJw4PL SfjLyfXyHsEMZ2DnW1LMK 4rCXnrV1sgPpk wxfxtO3eYdx+KKG3pFWfp EHGED9tQkvhtXY+PHRkIH O2fCqbWFtuQHWmsL1hRUR qI3h9GyBpKwP2 NGtnQ4ZlifH3VLMyeQKbV PPoxAGOtD2nhngyu7gpjo pdPgChLSMfCUe7UXe7OWT saWduOiBsZWZ0 LfA3NWY4kSSblD2ruKmlm hxfdZ0uRux+QmlydGggRG D9LLn9O7BnEfw7UNHvhDh tQF8ayDWhTIyf Zy9ceXwfeIhdAY6eWGHsb cmpo684HyBfr9egTWUxeH QbMZhwNVI3A52jd8V6EIA sMVEsZFX0oGB2 oI3ejBkkpylhkPPaeXula wZhoLkxOBihOVblA823BG NrhAxaShMgGFj3L1KlSwv 9QTRzqJzvPG3e cOJzJBmhUi8yyVxgrGhhO W5dKKOstfqco006GxQsh8 muYLBrjVLlVGojXRV0K96 wh0H7BVPwEEFy YZK8oEN6xJ0acJyznjdne GVmdDsgdmVydGljYWwtYW avA236FKHojWkqHzXhbNh 1B6DjVuh6UZPk lFszFX2waHDmVIanYb6ls MxafWvtSK1hOKIrugvbd8 51OrGnn1skSOQrbNKkTSp eUIT8I89lc3E9 IRBpXXBoEXC5nWD5yE9oy GlnbjogbGVmdDsgdmVydG fxWOgxIEhfD789RNKnuKv nPlBhdGllbnQg AOdqAAs1E6LjVuvkpJY+P A57XVNgKT33cWWcoYYpl7 xmoFo8MxQdCGBqHAS4hHj qYPmxn2LyRRSc K63cbOUgs8R6IJElkUhdq AGeXiWvjZQ2gE7jCGxkem gwn3kpcpngOebyl4xfjz9 7yE67L72fOAnj ZHRoPSIzMCUiIHZhbGlnb c3boO4fVs0+XQMcuQQ2xF D4eS0wLOVhDqJ5INtaX46 9InRvcCIvPjxj e8qzu4fhnLg2XnX4QHUhl dQgpMhwXTB2z3KuJu97U5 9sIHdpZHRoPSIyMCUiIHZ xmZyxbm2tuH2f Ii8+EWGryBZ6xOT9pF1pS wVkGlH7BLlzH808TnTouP ItIorlW47bE2ZiqLD+PHR gLwc4OIFaoYao UC0ozYEiDWyxEq2gDLL5K lZlDzZbZBqrX7JtWHGzos ejqqmhgGS3MJCdHPEymT2 6Ef4xrSacYDLa tNIJeJ7iwfogz0yqdjxiY bAeENYhEBw5HPa0PLNiaP mwWrCkMKA1PgO7FFI6wXH cjQ7kcEordqft gQ6gZ1XsJJSscaqxMa45f V4wYbDaFmQ5RYlvTlf+TU FSVElOLCBFTElaQUJFVEg yGZ9TVT08BO33 pXIse4R3vLN4K8DsSHYrj roofpadpHY2DVLeXNArjL 44oPHlLWdpEw2kj7U4t86 5YUKzEFPexE12 Ay8hsQifDJJneBVFuH4np lugf5hhflxrEdQxKYArTY q4UIx6PYSprTjlBxXpPRI 1GoS9ZLP7xHMu eN5ypMgkaamutK1mMgr+M XueZLAxZUf3VGfskVC+PH LmOKE6pJskTVjvEFGmfY4 gKRFxO6f7TbWf OzP2SMcfM6DvIYPcohfdM e79sV3aObZzYfT1BSdvE5 DrmcC4HACbrDYtCMsmHSK 5B72fa1T6SIIg TCFyKJD7xPW3cS2rrSwrx jogbGVmdDsgdmVydGljYW soRAnzF632QVVliRhtQwC iUVkzMEEfHF40 CC54mSFua4J7lPV4D8QaY LDfvmutozmgxFM0QRIzPA RlrT28iDNoSGpzHi7yn3G 1d757DEDaVTNh zH81Pm0mxWtuAXUkvCGVv B3mvplkh9odvoawZnOeJP EjZAq8RWt3VBIymZnlGkY gYBS0EaD6EDP0 aUUttM0elWpwuwclnC7rY yc+OkBKTCdVTI92QX08vA Scx9I6zQY3G9KbXHZlbpe vaoprpTO0HNYc QGIedB15cZXcNUdaEw8is 2B7m789RKXoBKLsqB01Dv 1ncPejJIOixAVNyI5lroh bo3debpyrZwUf AZZaLZj5KTb2RSEwlDvqY oYiLMQ1WbL9QIE1mGKpnN 9pbHkpdosynD8aHtc+T1A 1T8IoFqitsDL+ OQ90GAViQL35bAIyyXIwx 9ycoYl7MpGsPUMoORP7gI wsKRsna9KjAVWfF95kvHB sm2E6DZUbhJnx qMDjQwYjjYE0jW1vVHghg xoou3agmjldOowoo4niof 43xG76B87iLEcaMFRhTFD zMCUiIHZhbGln fs2jiD8bDf8+QXKisOR4p TU9wD1wLsZdLkA9CMddH3 38NgRdsDTbThzlf8rkj5l ztGd1BoYuKFYo hdLtzYfuVDF4h0VcIt34Y 29sIHdpZHRoPSIyMCUiIH JclKtyqx1grW0xLx4+PC9 hy7vnrg83vN07 dHI+MWPkGYQ2eJgdUDdhS NYgoS3aEJigBzW0MRZzMj PedS74hINeIOlhHo6uxRh pvDhmCW7zQHZx ogiom525YkXio4tsYLPdw WAwUTfaTWN1N72ix4O4GD UeRYLtIRE0zOV9aG9eaPa nbjogbGVmdDsg fhHngPviRVwxGJfiM497I KKtjIbgUtRexFLmC3agxa HAWX4zHklqcPF+PHRkIHN 0eWxlPSdwYWRk gW7dHRQnP2v5KyAoVuO2E GccD1NqlhT8CQUscFUdBZ NfrYIQfY6ecgwgj3zahxe gIzAwMDAwMDt0 FYp0IZUbzBtmDfDyDCW9L jG3QKM4aUCweH6ewQkips sipW5tNfg+RklOOjwvdGQ +EPDnHBJ6vDzf LRtzRCOccC3eICLlD9d9S kTpTxO4YBceY8JppuN2LQ XhzMPwCZSjqKPPbY1cpzj kv7nwsvgzYiDj EUMuZDi7BUh6BJTsdXucN sJiPAT1BkA7SMW9rLEtrX 1vkHktorltlL9tOmq+TVJ OOjwvdGQ+PHRk TGQ6cSniQFfaRADfuR1fD HQfI2g7TlOaFxD7QUuxT8 DyqiX1QTJsnAFuZZRdzXO MxQ2znjruu5zk bedyExSuKDMeBMi3DDa2O DCfkEsmRmFiANU6LzZ0XT P3pDJctK9dhFujmduxqL8 wOyc+UPR4DWW9 IU40OI19W3WaLezqmLMxv +PHRhYmxlIHdpZHRoPS zjOAUuKyFnrMepCK7tSt7 yZGVyLWNvbGxh cHN (more content not included)... Normal [facility] QUANTIFERON TB GOLD PLUSon 0 02-27-2023 QuantiFERON Incubation Incubation performed. Normal [facility] Comment on above: Performed By: #### Q NTTB #### [facility] [address] [place] [address] Dr. Shon Barger QuantiFERON-TB Gold Plus Negative Normal Negative [facility] Comment on above: Result Comment: No r esponse to M tuberculosis antigens detected. Infection with M tuberculosis is unlikely, but high risk individuals should be considered for additional testing (ATS/IDSA/CDC Clinical Practice Guidelines, 2017). The reference range is an Antigen minus Nil result of <0.35 IU/mL. Chemiluminescence immunoassay methodology Performed By: #### Q NTTB #### [facility] [address] [place] [id number] Shon Barger HEPATITIS B SURFACE ANTIBODY , QUANTon 02-26-2023 Hepatitis B Surf AB Quant 14.2 mIU/mL Normal Immunity>9.9 [facility] Comment on above: Result Comment: Stat us of Immunity Anti-HBs Level Inconsistent with Immunity 0.0 - 9.9 Consistent with Immunity >9.9 Performed By: #### H EPBSRF #### [facility] [address] [place] [address] Dr. Shon Barger MMR IMMUNITYon 02-26-2023 Mumps Abs, IgG 156.0 AU/mL Normal Immune >10.9 [facility] Comment on above: Result Comment: Nega tive <9.0 Equivocal 9.0 - 10.9 Positive >10.9 A positive result generally indicates past exposure to Mumps virus or previous vaccination. Performed By: #### M MRIMMU #### [facility] [address] [place] [address] Dr. Shon Barger Rubella Antibodies, IgG 1.73 index Normal Immune >0.99 [facility] Comment on above: Result Comment: Non- immune <0.90 Equivocal 0.90 - 0.99 Immune >0.99 Performed By: #### M MRIMMU #### [facility] [address] [place] [address] Dr. Shon Barger Rubeola Ab, IgG 116.0 AU/mL Normal Immune >16.4 [facility] Comment on above: Result Comment: Nega tive <13.5 Equivocal 13.5 - 16.4 Positive >16.4 Presence of antibodies to Rubeola is presumptive evidence of immunity except when acute infection is suspected. Performed By: #### M MRIMMU #### [facility] [address] [place] [address] Dr. Shon Barger VARICELLA IGG ABon Varicella Zoster IgG 1057 index Normal Immune >165 [facility] Comment on above: Result Comment: Nega tive <135 Equivocal 135 - 165 Positive >165 A positive result generally indicates exposure to the pathogen or administration of specific immunoglobulins, but it is not indication of active infection or stage of disease. Performed By: #### V ARCEL #### [facility] [address] [place] [address] Dr. Shon Barger MAGR Intraoperative Recordon 01-03-2023 MAGR Intraoperative Record MAGR Intra-Op Record Summary Primary Physician: Sarabjit Blanco MD Finalized Date/Time: 01/03/23 13:44:55 Pt. Name: JELENA BINTA ANN /Sex: 1980 FEMALE Med Rec #: [id number] Physician: Sarabjit Blanco MD Financial #: [id number] Pt. Type: D Room/Bed: / Admit/Disch: 12/29/22 [...] Cox MA Role Performed Surgeon - Primary Corporate Planner Corporate Planner Time In 12/29/22 08:38:00 12/29/22 08:38:00 12/29/22 08:38:00 Time Out 12/29/22 09:05:00 12/29/22 09:05:00 12/29/22 09:05:00 Procedure Radiofrequency Radiofrequency Radiofrequency Ablation(Bilateral) Ablation(Bilateral) Ablation(Bilateral) Last Modified By: Tiffany Tyson RN, Rebecca L RN Votino, Rebecca L RN 12/31/22 09:51:06 12/31/22 09:51:06 12/31/22 09:51:06 Entry 4 Entry 5 Entry 6 Case Attendee Eveline Chen RN, Regina CSFA CST Mitchel, Bradley MD Role Performed Corporate Planner Scrub Personnel Anesthesiologist of Record Time In 12/29/22 08:38:00 12/29/22 08:38:00 12/29/22 08:38:00 Time Out 12/29/22 09:05:00 12/29/22 09:05:00 12/29/22 09:05:00 Procedure Radiofrequency Radiofrequency Radiofrequency Ablation(Bilateral) Ablation(Bilateral) Ablation(Bilateral) Last Modified By: Tiffany Tyson RN, Rebecca L RN Votino, Rebecca L RN 12/31/22 09:51:06 12/31/22 09:51:06 12/31/22 09:51:06 Entry 7 Case Attendee Froy Ramos RT (R) ARRT Role Performed Lan Specialist Time In 12/29/22 08:38:00 Time Out 12/29/22 [...] Agents (Im.270) Povidone-Iodine Prep By Vida Figueroa PARKING CASHIER Prep Area (Im.270) Back lower Prep Area Details Bilateral (more content not included)... Normal [facility] Coding Summaryon 12-30-2022 Coding Summary HTMLBase 64 TtnptfxzIWl3eFg+PGhlY WQ+FH5MSRVuP35geMSpyX 1LA9eVKR6HJNJVJBLSSZ3 MWP8zyWG0BPpjO9UoatKf WkageZEtOR30TAs9RMZ8c HnxHKkpgF4czYXuD1a4Xf MqOC52xP84QCedTHWbWbN 3LjZpbjsgbWFy L9gvCcWqpQFxDye+PHRhY mxlIHdpZHRoPScxMDAlJy SbzSkaDV6mEt2cMFAkWQF vbGxhcHNlOiBj k0dvVNWgIKosJV3kiBqnH 9YyfIE6ZFGrm6r3Kg17bZ I+HQHjRTS2qMwfWSwsk25 7VcKur6sfGGQ4 tLVcZHsrBGK8L88rg9H0N ULzMQOaRMJ0cTO5mD0jrM wbpvasD0QjcDXuRiJ2WJX 7sKFdsE5kcMme ywsxqX7nHsn+R55AWT7NJ NUHWM6NWcs3B4HjUwhnfE I+TU50QFOkPA67oLKrhVG hq0ycvEo7IwYz BZZpSCY2iUtxXFdsq7QpI WHrR87orAQhk3U0FORzlC dvgOOiAdPjuHL4tA7eBVr yiiysg1unkwcm Hdgdv3buya79tH06W73kA ArtSQWkBKZ2CPXmPKVzdY rlvk5dyP0yLh3+MBtnt8o pd6hxrJi2QaJy BDZdmnFbjNobWEY4z0KoG z37M2HpoUamv0OcVys5ci 84kSFgk2N1nCO5IGusTIA jiY9mPBdyYhK7 QDYcLhLuhT79hHQkFTraC x5ivLmxqTnsRA6iSOKkgw ovMLBdwD9kKEDmdTQphIb dQF1pMBPnreab u788GqVaTHQ8QJJhwIPkN 2KmpE3jYgLaZZKeGJEsL2 TltVSpNPocB318WGrkLeH 5WTUsapOtG1Ud NXWljLewHqN0a2L8Mi9Bg 5ZwlyyrVSW7EBxpOVZjMt ChZcCrBhB9N3EbBbr7LUZ tqZkaPQ7mC2Ti QWPludatapqwnAH7FCJdZ FOjjD45bECwYGiiIc4su2 B2a969KXZgPGQtiI67Gf7 udDogMTBwdCBU pD9gqrtzc4wsubemHeWsZ KMbXVu0FFs0LEYuxPnoHl DhMBX5LfG4DLG9xQIohG7 peVtpppiowO9k Oyc+Y21nrW9mYZC5ISK2j dlhAECazeWhAZ87EX66H1 RyPjwvdGFibGU+PGRpdiB fvFyyPF0fCkPx b9kcf9UkPLbuN6GhDLQnY VhaIcx1KNXdCQC8iPW1jK 7hGPOgXAebo2F4mPJ4P6T qieTpre3vz4et MFQsAIjbG67ocSTyt6T1C LDogDX2WYXgmOrbGeGfcN 93Oyc+TGZjfWohc0JcIrx mc7hnp3lqgUl4 JxKxBSGrjnNyrHlhZVP1c 7FhZx38Q89kCTalWVMmEL WfXZUxBZBrkNbbmv8ceS5 wIi8+PGNvbCB3 vXJ7qP5aQSQqVxY8PZedF 054IdKaaMSqZjsjm1hpx7 uxvQa2KjRyIRRourMpcFo yWWY2v0TrVw62 S41kVJkrLOYkRPXmBKByQ JMguJhinq1whW7yVz2+PC 9um6rnzn20lQ02pMZ+PHR hVBZ7kQyrBVaw WOMjeH9qEYssVrS4GOThC wMtrS55cFVhGGhiDc7unL pnjJnlCG5yKMWpruuox82 4LsKre5ktENOo mRNaRNhzUTH8V58cb9M2X NXgAAAmEXO7vPU3gS0nrK lnbjogbGVmdDsgdmVydGl qZWrnENwiM903 IHRvcDsnPlBhdGllbnQgT oJbFZf5K5JlOxa9DAOyfP bcIX7wnXCbTBsrOt1xqNy lsDseDT4sZWEp jryjq659ErUte6vwYYGfw TQmTZcjTHD2N85tg8I6CM WcMJEfRXS8pKA8eS1jfAa nbjogbGVmdDsg qxQydLbeSDtvUGvsC511R HRvcDsnPkJpcnRoIERhdG F8YN36NN09jQPbb5Z1jVK 2B1IoPDKvfkfs zonbvUH3ZFSiHTFmuG18D j1znZeyQc2gUYZeOXK0IH IxkJGoM5SnaQ6hXiRsZYS xGCUgO7LruWIu QPbiT001MWzdJpW0VDIcw hGaK8AfNCAdjDowFlQ8m1 L1Am0IW3T6NM93ZG26tVD tt8O5pTV2U9Od CZOjphtuflvltZP3PZGbQ SOxwK90Lg5viGqnHb1hJZ ZbGUK2IRItnRYwB0EflZ6 yOiAjMDAwMDAw O4KubTUkODbrR783YLxqQ sM4FALafjCfB2WdKQMqoA jkKuV5k2T8Zf7CGLi4XV5 1EJ82sALai5K0 zWE6E9LfYOGolnzxawjsm XF2IBCxDQGffQ16Fm3wzG nbVz8tDHMoXKY2LMGpeAR oL0NzxO7uCwHq TNQgJDVrB0GwiPKwZRyvF 246GZlqDxI6WRTzvwFyT8 HqEYXsgSlpEnS3h4B0Ww1 SZFWnJI23PKB7 cPM8FE56EZ16O1AqZieve GFibGU+PHRhYmxlIHdpZH RoPScxMDAlJyBzdHlsZT0 xEi7qFECcJFWl cJhftFHjRrGnv1naSPZxT ZxbIZ3boUdnY3NzpTH4TQ Bmm8a3Xb12R72rW4EirDK +LBEtmXT6kXR8 rC2nLcAbVwM3SMsiI634E kZowKEaEadhx6vgg3braF k7TuE5RHFsklBcnWsbLTW 0j7MfFf37V46u IHdpZHRoPSIxNSUiIHZhb Hurbl6flV2kNm2+PGNvbC R1tBW6jL0nRnTjBgQ6MFl hP933QkLqoQJu Btwnz8dgq7kisNy5ArEaH GQioiKmwZfiGMS1n7AwLg 75K2MmiSeyo0OpMkp3fh2 7yUPsy2U7zXW7 I4CqGVAvfseujMYrwLrfZ F7vGIKcpkxhUDWawL2bHG KoF9h0LuZsMwW6MQvgJ4H ysnN7FQGqzCDo SEqeEVH9K57po3P3OXXpJ EMwUTS9pDL2pD3lmAzzwo ogbGVmdDsgdmVydGljYWw tCTvjB187UNOm eYwiXKJvtS2aEBIgfOJzn ZztPU4vWVVvofucVo1ISw RJTiwgRUxJWkFCRVRIIEF OTjwvdGQ+PHRk LEG6pFmzJCxlVUXeaD6vZ HRbM1a8SsQcTfJ9UYzkJ4 AjKAUyvyhhUq60fI3qHzV wCzT6HGcxV3Hb nrK3HOBtfYSzAWyuBPY8G 30hb2M8YRPjYXXmSRR5dV U5zQ0lhUwxdkqkgSWnaGe gdmVydGljYWwt UPebW287UDMqfWxsSnL2L tEzZkO2MOE7R7ZcDva0YA NmmAyyZO1gpNNlFQbbHu4 bjQehnDnrIN3q NDLgahanXLEuiA9wZROie TCrtPzbBG7tEUBvryelj1 27UtViMIW6KNDgzKDqV9F hnF1hYhDgRTVy ADFgB1AyiWAsEWntN503L TqsLlH5HOGuxnRwN3LnTO PpdYvnHzM6z4U7Id04NlA ZZWFyczwvdGQ+ UKNxTEF2wYjrDQcpOFOyg J3pALYtV5t9PmCdOrN1ZX uiZ3LuTHRknfbjOg09tY9 jGjFjDbT6AAhe L5JddsA8TXVtvUMfJUbbM ON8Y28by9G7NSLsDNYeWO G9kAP4wT0jjKdyoavteGT mdDsgdmVydGlj EYruAHvsI833TVFxnAmdB kZFTUFMRTwvdGQ+PHRkIH M3zKvkPIpsIOSvpI9vBPQ vK3r7IwPaMpG0 BHotF3MuPMUlkfhsCi14e X7iXwMvCrQ1CFdzP7Gwyd Q3ONGoaEHhTLiyFUU9X99 hl5H0QXQzPAXm NWS6cAN1mK9ikJjhdtjho GVmdDsgdmVydGljYWwtYW suB259ETLngScnTrRdsDW XjUEoEOQ5FF38 SI50U0LzXmtfiSIphGO+P HRhYmxlIHdpZHRoPScxMD QrJrUxtRosHI0lDz5eBWS yLWNvbGxhcHNl GmPdq7jrKORcSKfbUL9pi TfoC8CuxPU1VMVox0j3Dv 10M04bM6XsbKQ+PGNvbCB 2oFP4dJ7zNbBl EfB5YXnxX639DmOuoGBkA emou6eqh8zxzOn6JhFqQE GczhIavBetPDZ3r1FmQv1 9Y44vKWjzFMBn WTMlSVFeGGFewXtaxs8vi G9wIi8+OAYamUJ0yXU0zU 3kZzHlZyE1REufK206CoN dlOLeTzyqX26h P5ZkdZE+TKLbLel9GLBga LsaUG3rwAScEUwnGh5dNQ K5PgXhAiPxRUfeP0XdRYY pbmctcmlnaHQ6 NRUrSPFpfQ26Rv2atRplK b8oEYCeGET1GNPzaBYgF5 SgdI2gNhHeKMFuYSXeJ5P meFIoPNcfE977 TTsuOeJ9YHUnpqOmL9CdS FLrkMwtRzB0p3R3Os8ZjY awlIVqQG4mHpTwSOm2B4Z rEdq0JNAdrWoy LP9hwAOiIRmgVu5veNdii MarET8hGPKptsbpt756Gf Kad1azBFPvaPSuJYlaKHF 6X20wq8A6FGSp LXCnGDE1xUB3rD7knEjzy jogbGVmdDsgdmVydGljYW reHIceT397FGBokOzaIiT LUrp0B1NaCzt6 VZThiInpSE0pkFEvWImrL e5thGvsyTlxFB9oFADbua iom597TbWth0nlDGPzlKS fEIfcYWI4R63g g0E9TRFdVTFsMEG2jAO9c G5spDxhepwioBLieGozjf RhcFyeXYnqHAtjK886IVW cdGkyDy5WIad3 W8VwAnb2YHJppOjfYL7wh OZlPPxmXv9riCpxaUvgIN 0gQXQkdknxl793QnVze7l kIDEwcHQgVGlt OHF1M41sq3T5DSAdBOWuL CE6tLN3bJ7ueLljctrpmV VmdDsgdmVydGljYWwtYWx cM173YAJzzLhb PlBheWVyOjwvdGQ+PC90c a39S6RbSgiqBpe2SHCuFT N9fJQ4qW4kBJDxPZrvw2X 0bYW7P2AupzHs ci1 (more content not included)... [facility] Consent Formson 12-30-2022 Consent Forms [id number] [facility] Anesthesia Noteon 12-29-2022 Anesthesia Note [...] on: 12/29/2022 09:33 EDT] Jalen Hagan MD [facility] Anesthesia Note Patient: BINTA GRAVES [...] All Problems Lumbar spondylosis / SNOMED CT 186936454 / Confirmed Anterolisthesis of lumbosacral spine / SNOMED CT [id number] / Confirmed Histories Family History: No family history items have been selected or recorded. Procedure history: Facet joint nerve block ([id number]) on 12/15/2022 at 42 Years. Comments: 12/15/2022 [...] 29 07:50) Resp Rate 18 br/min (DEC 29 07:50) SBP H 143 mmHg (DEC 29 07:50) DBP H 92 mmHg (DEC 29 07:50) Weight 117.10 kg (DEC 29 07:50) Height 172.72 cm (DEC 29 07:50) General: Alert and oriented, No acute distress. Airway: Mallampati classification: I (soft palate, fauces, uvula, pillars visible). Mouth: Within normal limits. Respiratory: Respirations are non-labored. Cardiovascular: Normal rate, Regular rhythm. Neurologic: Alert, Oriented. Review / Management Laboratory Results Plan [employer]#( A) physical status classification: Class II. Anesthetic Preoperative Plan Anesthesia: Monitored anesthesia care. Anesthetic plan, risks, benefits, and alternatives discussed with the patient and/or family. Patient verbalized understanding. Informed consent was given. Consent was signed by the patient. [Electronically Signed on: 12/29/2022 08:45 EDT] Jalen Hagan MD [Verified on: 12/29/2022 08:45 EDT] Jalen Hagan MD Normal [facility] Inpatient Patient Summaryon 12-29-2022 [place] [address] Patient Discharge Instructions Name: BINTA GRAVES : 1980 Patient Address: [address] [place] [address] Primary Care Provider: Name: JEROD DELEON After you are discharged if you find you have any questions, please, call [phone] ext [phone] to speak to a nurse. Discharge Diagnosis: [...] contact the [facility] 25/04 Crisis Hotline -Text 4HQPA me [phone]. If you received any narcotics, sedation, or [...] business decisions or sign any legal documents [facility] would like to thank you for allowing [...] for Disease Control and Prevention June 2014 [facility] 12-29-2022 [facility] Preoperative Record MAGR Pre-Op Record Summary Primary Physician: Sarabjit Blanco MD Finalized Date/Time: 12/29/22 09:18:18 Pt. Name: BINTA GRAVES /Sex: 1980 FEMALE Med Rec #: [id number] Physician: Sarabjit Blanco MD Financial #: [id number] Pt. Type: D Room/Bed: / Admit/Disch: 12/29/22 [...] Signed By: Namita Roman RN 12/29/22 09:18 [facility] Operative Report - Surgeon/P reagan [...] on: 12/29/2022 09:03 EDT] Sarabjit Blanco MD [facility] Patient Handouton 12-29-2022 Patient Handout [facility] Test Urine 1 U Preg Negative [facility] Comment on above: Performed By: #### 3 [id number] ####[facility] (DEFAULT)[address] [place] [address] U Preg Internal Control Pass [facility] Comment on above: Performed By: #### 3 [id number] ####[facility] (DEFAULT)[address] [place] [id number] Progress Note - Provideron 0 12-23-2022 Progress Note - Provider [id number] [facility] Progress Note-Physicianon Progress Note-Physician DATE OF VISIT: [...] to proceed. Sarabjit Blanco M.D. JOB #: [id number] [Electronically Signed on: 12/27/2022 09:06 EDT] Francis, Sarabjit MD [Verified on: 12/27/2022 09:06 EDT] Blanco, Sarabjit MD [Transcribed on: 12/23/2022 09:18 EDT] [facility] Coding Summaryon 12-16-2022 Coding Summary HTMLBase 64 IljbtiqfUQq3nPt+PGhlY WQ+PZ8DOVWxG71lpCIpuI 9LZ8gDYT9HZZLETBPJBX7 MDP4glRY4CVzaR7SsbtVf ZtkzaEBsYE49WBd0BKB3n PbyYNgjqY6taKMlA0u5Kb OxCX40cA97ZWxzHDIwWeL 3LjZpbjsgbWFy E3iaXfLehFIwWge+PHRhY mxlIHdpZHRoPScxMDAlJy MyqVnoLZ5bVb7oQOKwNWX vbGxhcHNlOiBj p2ckCEBcQDqpPN7qrXwzT 3SxbYO3COGic9p2Mp97sW I+SSPvASO9uZstUIhbp84 0MqVdh8psXER7 nDPyOZavKOX9G90og6Q1G BQhLHRcIPG6aSW2aS6hhY pgfdshT2TepDUtSoH8GXA 1wUStqM2yzMfa nxqefJ3vSvk+I11RXG0XC VWEGN4EEjr8F8FiJknmhO I+LS74WEJgRY43hVPgyQX cy5fchNo6PqIl JZCaTMB4pAbcVLoup0QxC QSsB65tzSLrd3B9TTLhbA syqIBiQdBmeAA7uZ1pZJg zlmjzv6kvwuli Lbtci7kyxz10vA71N72aG FayDIMyRKY4GATeBXVtmF frzu2cuN6tVf5+LYpls9z vt2omsUp8UjMg NZDetkZvoErjEBM2g3HaP x40Z2CoqRumv0MlYid2wo 12oACrr6Q0xMY7QTdrJNE khG2cKGotZkY4 BAIfPzTeuE66qAHxJXjrC z5atSpdcFuuBJ5rBOWtxj egKABpwT9sQTQfkDAnvCd uVV5oVPKnxevd h238PnPjBQK2HJTewEGfU 7DevI2xTuUwYQJdZMPxZ4 HloPWhITsjU705WBfcWjO 1QQIqjaTlW4Af KMDxdBhvUlT7g4X8Um3Jf 1LzrgqkNLO0OLohXEEyBj Y2EwRqJsZ8H7LdCty0ZBD yuQhpPO2cS9Sj HEMnavxukrghpXM7MXNmY YEcwK61bMHwEQjuEk9ne7 X0p154HTPcJINkqH71Ip8 udDogMTBwdCBU oT3komtis2gloutiQiXkY AQoZFk6IOu4UWChqAxiWb IoLOS7LbO0YDJ3dRUgtW7 fxMuzungrlM2r Oyc+L99avJ5mLKE8PCB1t jrlWYFesgVmQF65DP57Z0 RyPjwvdGFibGU+PGRpdiB vtLpwDW3uDnHj f3rcf7QcSCyrJ4IoIRRpB DeyKsz7WCOiTYK8uKL9pD 3yQONcPZpem4J3bMB8B6B qktZlux2ok8rw EUBdDWfyL63xmVZuf5E7W BOhaHI9BHAtuJjoWjKtuG 93Oyc+YOHxeUzdr5PwIhg tc8bsv3lliWr3 MgXfUNPkaaFylEzvEPB5u 7RnNi26Z43oRRcxUUIsQS SsPMQtBUYbzJafxi0jdQ0 wIi8+PGNvbCB3 vAH0vA3qISVbNjK3QVijQ 246XnJedXKsGbkgn9mgf6 xkhPj2XkXoDACstiLjnRh xFNJ3p1PfBa17 E55mDImhCFCwROBcADNgS YFqsHskge4lhT8gAk7+PC 3xs4ljea15rD40nJQ+PHR zRGO0aEbcUFrj FWJfaF4pTEpwQjY4ERWuV qMdaO19yETuJTswEv3fiV dhuLuwUV3oGKPurwlrh01 9IpCbv4rgXLBg mJTnPJizVGO7Y67re2S5P YFvXZYfHPS0nLM8oH0tiZ lnbjogbGVmdDsgdmVydGl vEKlrWOwuQ249 IHRvcDsnPlBhdGllbnQgT cOhBJh4K6BuLsg4ITFuuC snOT4lzUHfOFfaXx3gdCe auAwoUL4sFNGl qsfvk958GlPzi7pbOMBgm NDfEQelARG9Z97wr9W7CK DeLLHsXTB0oXD0zT5zvDh nbjogbGVmdDsg aeMfwXbgDFfhWMcxF658K HRvcDsnPkJpcnRoIERhdG A7LZ48MW12pELcb6P7zMI 4F1VoJGKhynhs btygjJH2UILfAAVguY17I d2vwFpwDm1kQAVnIHO7LE DcbXXeS4UwoR0pKbJsDAP hPSZbG5CwdXAp JFcgG272WZhuHvM4NDLjn bCdF5NxIGStgHiiBnQ5z3 N9Oc6LQ1Q4WR56DA35mCX ao5O5eGG7I9Gf XJAuaxsegjxivIC5AAAfI HAxdU43Oz0hnWakLi9oJW XhWWF5PYEsmTPqW2WtwO5 yOiAjMDAwMDAw E6TygRQuAXfbK572LTjbO sO7WJFwedVeN2FkBGPvbY wfYzO2o9N5Ma1WJZu4DK0 8LX55pOEwk6U0 cFI6I7XyZDCsnuzzyppnf FI5WHToGOFojE36Zu9ceC paOy5uFIJaBAC6ZIIehHT zH5OafT6sOdGv TVBuYLOhQ7KqvQFwNIkmD 161FMixBnN3WIXtctZnF6 MgEBSlmBgaCiQ0f7B1Zg1 USDVfAH63AZC0 kUN2KR86PK12E7YtKdhzb GFibGU+PHRhYmxlIHdpZH RoPScxMDAlJyBzdHlsZT0 uWa1eKOHcMVAn tUutwFWiYtRjm8imEMFlB CeuPY9xdMjdB4WuiYL3ED Egh5i7Hy03L65gQ1XgiSL +WXSjcUN5iIB6 qM0hVjLsMlH5INdaS967X oWspQZzTixqe3bmu3qakQ z6CqL0EAIezdPihCfjHQW 2z0ItBk33V69s IHdpZHRoPSIxNSUiIHZhb Zbmzz8uxT7wNz7+PGNvbC Q4bBP0yP4nIdTqDqA2MZs mI382CsFijOHm Sbqix6nse0vfoGs4GnInS ACdevPloZcdDIV2u5IsKp 80H4CmjYgdi9CoTzk0ye4 6kPLgu8W1oVO8 Y3PnETKdgthkhGJwwGidL W4oUVJhshrjPDAhpQ2eWG UcU6w2RqCyFoI1TKyxE8Z fpaK2ACYrxCJq FVweNOA1W61ep3D8ACOxD DIvHCG3wLT3uM0fnUubnz ogbGVmdDsgdmVydGljYWw qBJydT840DBVg kUsiWPThgJ8aWLUgeIPnm SglKX9nHTTxqrjxXa8EGp RJTiwgRUxJWkFCRVRIIEF OTjwvdGQ+PHRk LPS6sLowDZyiPQTjkC6sW KPuX5w1WfDuDnU8AGlnC0 AuEICghsgfTp94kJ4fXxQ fObF6IQksX6En doZ0DKHwxEVjNHnkLGN3D 52dt0B1GLTsQSGeXXQ1kL E8qJ5phNwkcvnpdIHelEt gdmVydGljYWwt EPgzD495NNZobDxpStN0B vBmPsX1PVM6N4SeAbp4LO UxtPweCF3bpOZeKXulDe0 dnSbdfCboVI8i RHWxwtnaMXAgnD4mDYVpp HUpmDqnFE9gLPSuombia9 84UwSfEKZ1FDVjeJEkP8G zdC1bBnYkELIi HKYsY7BenKKoCUivY800K QkwSvD4LDFzwfXhJ9DkIW YbzMjtXvB6n6N0Rd89RdF ZZWFyczwvdGQ+ WWSkCRM2oGdgLPukPDIuw N0dCBCwJ0i6JoDcJtR8DE rdA3SwCEUkfrefTc58eA9 qYfXwJjO7VXkk T9KsqrA9IPHatYOcTVfyV CH1E01dk5A0HGPyVTRmNP C6mIB8wH6pgZjyuefpoAO mdDsgdmVydGlj ZBamIXjqA851BRYfkSmzB kZFTUFMRTwvdGQ+PHRkIH V0pLxhNNdoJLAmhS1oWEL aD3k0BiQvOwX8 EOjnY8WzMAYdnuusUl10o F4qIkGlQgA9WJqnY8Irbf I9MEGnsBVtVQyfFEO4R72 vy0H3KIUhMUIv ADR6uEM8vX5edXprlybpi GVmdDsgdmVydGljYWwtYW gwR015XUUovKvjTwPzcWU KwMGcMAU6PR34 UR80S9SaFurqwKRhpYR+P HRhYmxlIHdpZHRoPScxMD NrSkGsxJvjCF1dCx0cHBR yLWNvbGxhcHNl EfSzq5muXYBxQIcpVT5zo SbpQ4TvuFA1UGWlf5c9Sy 61F70zP9HsyAO+PGNvbCB 8fVJ6kS0rMdRk NiV0TWzpE189SgNizSJpP ejbi4kzg6wjdRp0EwZnPI MytuAadOzqUUR9u7TmEl2 3D06tCRpfVYHh OSBpMGGqJQTiaBnrmf6yx G9wIi8+MTLwpGC4gLJ0jD 7sCnOqIlI2XUmrU955BcW dzOFnBjpgE84z K1OkiYY+HSHbVpd0NZIwf FlvOJ3qgHSiEXbhGw3yZP B0FvViXgPzDUfoU0WkLTV pbmctcmlnaHQ6 SSBtHXUxmX40Vv6kiGhcJ s2bKJQbVMG2VIHylVKwR6 TtgR0mQsHsLBVfYIDzS0F myDAzTHnnA142 NLhtZtQ2LBHxoaVaQ8FjD BQvbAeaCtM2p9U7Mg9EeO vqpKKlDF1iLcGrAHt6E2D rYkb5VVYqyTkn KQ0zvQEtROxxEu9onMohe UsmYY1zDDKiriabc016Iq Mcs4jvHJIawFAkCIgyGWC 4U72mh8B9HURe DMLeWRW5iPC7fO3ixXefn jogbGVmdDsgdmVydGljYW lyIQeqQ062SBUckSrnNxI AGpt9X4FbFrn0 LLIxrPfyBH6tdNClESxaB d9huKaqlDudNY7jBWBejw tuq490QhHxg1pjTIUwjPC yOJwsOXR5V59p x9J3NHXfFVYgUHB8tQV9d G9stCrgmjjyxESwiZvcsb KwpKuwXCimDFqxQ885PHB ipLriYu0PShl8 M5NsCba5NDCczVbrEQ6he WKoWDrzVl8lzDhjlCpzCZ 5sXNKosytzp364ArCmj9k kIDEwcHQgVGlt EWG1L27bz8E0RQLyHXTlH TA2qIQ0yQ0iwGejarvvfW VmdDsgdmVydGljYWwtYWx vK521ABAabJwa PlBheWVyOjwvdGQ+PC90c h26M7YoYkyjHqn6RLXqYA C3ePO7eC0eNOCfXDfhb1N 8nJK9U3JdxrOh ci1 (more content not included)... [facility] Consent Formson 12-16-2022 Consent Forms [id number] 3 [id number] [facility] Inpatient Patient Summaryon 12-15-2022 [place] [address] Patient Discharge Instructions Name: BINTA GRAVES KATIANA : 1980 Patient Address: [address] [place] [address] Primary Care Provider: Name: JEROD DELEON After you are discharged if you find you have any questions, please, call [phone] ext [phone] to speak to a nurse. Discharge Diagnosis: Anterolisthesis of lumbosacral spine; Lumbar spondylosis Prescription Information: If you have been given a prescription for narcotics, seek immediate medical attention if you have any difficulty breathing or any sudden status changes such as confusion and sleepiness. If you or anyone you know is experiencing suicidal thoughts, mental health, alcohol and/or drug addiction problems; contact the [facility] 25/04 Crisis Hotline -Text 4HOPE to [phone]. If you received any narcotics, sedation, or [...] business decisions or sign any legal documents [facility] would like to thank you for allowing [...] these instructions at home: Medicines ? Take uqqa-whm-twtdbya and prescription medicines only as told by [...] your h (more content not included)... [facility] Intraoperative Record MAGR Intra-Op Record Summary Primary Physician: Sarabjit Blanco MD Finalized Date/Time: 12/15/22 09:41:51 Pt. Name: BINTA GRAVES/Sex: 1980 FEMALE Med Rec #: [id number] Physician: Sarabjit Blanco MD Financial #: [id number] Pt. Type: D Room/Bed: / Admit/Disch: 12/15/22 [...] Cox MA Role Performed Surgeon - Primary Corporate Planner Corporate Planner Time In 12/15/22 09:17:00 12/15/22 09:17:00 12/15/22 [...] Luke T RT (R) ARRT Role Performed Corporate Planner Scrub Personnel Lan Specialist Time In 12/15/22 09:17:00 12/15/22 09:17:00 12/15/22 [...] Agents (Im.270) Povidone-Iodine Prep By Vida Figueroa PARKING CASHIER Prep Area (Im.270) Back Prep Area Details Bilateral Skin Prep Agent Dry Yes Without Pooling Hair Removal Syntegrity Hair Removal Methods No hair removal performed Outcome Met (O.100) Yes Last Modified By: Carlo DICKEY, Jacqueline Jolley (more content not included)... [facility] 0 [facility]-15-2022 [facility] Preoperative Record MAGR Pre-Op Record Summary Primary Physician: Sarabjit Blanco MD Finalized Date/Time: 12/15/22 09:34:52 Pt. Name: BINTA GRAVES /Sex: 1980 FEMALE Med Rec #: [id number] Physician: Sarabjit Blanco MD Financial #: [id number] Pt. Type: D Room/Bed: / Admit/Disch: 12/15/22 [...] By: Sharon Epstein RN 12/15/22 09:[address] [facility] Operative Report - Surgeon/P reagan 12-15-2022 Operative [...] on: 12/15/2022 09:27 EDT] Sarabjit Blanco MD [facility] Patient Handouton 12-15-2022 Patient Handout [...] these instructions at home: Medicines ? Take zicj-zym-jgslmtm and prescription medicines only as told by [...] sugar if you have diabetes. ? Take vapm-pki-gonrrix and prescription medicines only as told by [...] provider. Document Revised: 06/11/2020 Document Reviewed: 08/27/2019 nWay Patient Education ? 2021 [employer]. Normal [facility] Test Urine 1on U Preg Negative Normal [facility] Comment on above: Performed By: #### 3 [id number] ####[facility] (DEFAULT)[address] [place] [address] U Preg Internal Control Pass Normal [facility] Comment on above: Performed By: #### 3 [id number] ####[facility] (DEFAULT)[address] [place] [address] Coding Summaryon 12-06-2022 Coding Summary HTMLBase 64 SpeleuujKUn2oWp+PGhlY WQ+HA6AROYzZ99faNCkeD 7NE4qNYM5VEHBLGSZBAK2 ONQ0ypKR9JJetN0CzbvHr DycavTVdSR38ACq8DYO3r GdeKLkmgP3wlZHcB6s6Ik PxWH98aZ34ICtfRDPlSrC 3LjZpbjsgbWFy Y0qtEzEglOXxMhj+PHRhY mxlIHdpZHRoPScxMDAlJy ZdqFyoVZ5iTt3bABNhEQN vbGxhcHNlOiBj o5ijONQqXTzfUK6deMdxU 0RssJI4EPNyi6i7Dr53oS I+LZHuDQE8nIjeYFssu90 4VrGor6odQXI6 zTXrVAovDQQ5A88lc5W4Z CVcBWMxPPV4gJS3dS6qrX ndozzhE2ZzbDUzPsL8MOQ 3mJQoqM2ajNgm bpxktM6mPwm+G61TKA8IK YWSHK6JOzz1L0BdVuupaF I+XB15CWJrHD56uKPikIA ax0dovQh0EgQv TEVaJQV3gYgcBGivg6VnJ KWsX57wtFVaq4G2KWWnyW ppcLFaIxRqkDC8qG3eAMa xosbix1cqgvle Nqizp2rzre83rM04R78mM YkjWIBlRVH8TYTnRYSvaA xkja9lcL0cTe8+WTsww1p zx2hkyTo6IoQq ZVYaogGapBabQIL5g6LbX h79C0OczKvlx6McCne1ni 20gXYli7U1eSJ8NIjbQND yqI3zDKfuDoV2 GESuIvNoqQ24sSRaIYrlD s5lnMctoLksCT3aCGYlsc enZDAvlG1vHPMjpYElfQh nSK3kYWPqmwci i278DjYnKNG0XJMwxTTyH 0AwvK9xOgUvDOFgBDAzL6 WriQIuAZziO624LOwpBvJ 8LDGtufHlM4Vc FDVlbOxmUqP0u6L8Rv1Fs 4LkwtuqBOJ2DHivLHMjRz U3XpArHrX5H2TuUbr7UUO dcIoyIA2uY4Uo CRLtdfivcwzukEU5GQEfR WWksL84dWVyXFjcVb1aj3 W7m975KUHfUJRuvO31Ve5 udDogMTBwdCBU yN2tyngdt6oshmzuSvQzY GAsBEg0RQc1QODpoBxoNt FwUEA9PvD4BZF2fJWbqA0 iiOqkpqfvnG1p Oyc+D51phY3tJUO2IVU3x tprFFUrbuHfES71NL38Y3 RyPjwvdGFibGU+PGRpdiB pySuiIZ1aUmZr a5sbt9FxKCjjO2XjQNPqD EkcCkp1NSJbOGL4dQC0fC 8ySUYfPImvh1U3cBK3F5O byvYcuj2ac4jx ILMxATosK49faJJzr8F0P ROrjMW6ZPRjcBckHeWsrY 93Oyc+YOGtjKgsn6OxMzp pp8jus0xdvIf8 ZvCeMIWgfrOeeIudDEA8f 9XuPz04T05wTRyjWQEmHL JkTNWbTEYpgOyptu0ptG3 wIi8+PGNvbCB3 vRQ6zH6nJKCcFhI4UBhmE 929ThPupDHmHtsdo5dnf9 nwaFw9ZyBaEOPuwcAvfYl pTVT9r9SjXy71 Q43hLNqgSANvPFAdLSWcN XYhwXoosg6uhU7iLa0+PC 7nh4lmna23uZ17eTF+PHR vXWS1uCldPDhr SAMzzE6tVDxaZrI9WJOuD kNhgU88iOWxBHhrVy9keT ntiPoyPJ0zOBKuypjsl68 9LuYwj9exVSNr dRVnIVhvZMW8E29na9C0Z SWrOMNuFLM0dKV2oK9tiZ lnbjogbGVmdDsgdmVydGl eIUzcBLkuM000 IHRvcDsnPlBhdGllbnQgT tEaLLg3N0EzQsv0CFEyyZ rwOA2iyPElQUafDm0ozDu yrDssPD4xWKMp cxhcv981ArVqn7skKCZcq DEoURwaDPU0Y42ur7B1YG JpBBQjLDE3dGA3tR1gcOr nbjogbGVmdDsg naPuhXybSRfyMOpfL242H HRvcDsnPkJpcnRoIERhdG I3KU59YQ39eRTgy7K1gEI 9A0NmOWMqeybv toyjzWB3PCYaZTBmwV99L b3ysOzaEo8wHQUiSQO5CA EwnKLhO6ImhZ1tMmCbXSM pWQRdE4UojGWy YCzoZ621PCbsKeL7EBBsr wRdW2DuCIUzvRqaSkJ4z3 A6Es1VK0X7VJ86EM86vVT hp1D2jRB2K2Ay JHLzrydhklmwrUO3SFJpJ USnaS81Gf2zeKavAt8vFT PcEHO8DUPetLKuZ4JgiO4 yOiAjMDAwMDAw I9EmnCDnEGmgX051DBpoM pI6BVQheoHwO4BfHGUeqJ evKjF0q3X7Wr1FCHi2JF2 2EA47bJSob1G1 uSD0K1RvDXSouqptptnll NK2RIRfDBKlpV34Xs6gdQ ouTu2cWQMvMSW1VAWxhJK fG2BohP1iQdLc DGNqGFRqL0TriNYdFEwxC 374BMwuDnR1BECpxeBrH7 ZzUSBzrSpkPlT9p0N5Vn8 VBIJnVT89CAJ0 aDV1XD94QU99T5OeKsvkd GFibGU+PHRhYmxlIHdpZH RoPScxMDAlJyBzdHlsZT0 dXg1hEGFxCUPb kRamnDWjPbJzd2zyYSZoH DkhGV4csTvoY7VdqJF7ZI Gcl6t2Wb00H40gU2ZcuTO +TPPmeKQ6qLY1 pO3cYvUsSfF7MYewH135K bParJAfJnihn8zfy8jxyV y1NiK9SSXkxdLdnBwkJKQ 2o1BsXt07Y11b IHdpZHRoPSIxNSUiIHZhb Oatsp0mmC2zGh6+PGNvbC I3hLG8tO6uAaHdAmF1BJm gA775SlZnzKYr Ghovw7eox5rkuWz2LvHvW WComkRkzMezEKN6f8ExVd 62O0WpfCwwo8KfNgn4rh9 6zKLcb0T5nSY8 A1FaHDOlheqptFCueJrlU F6yZGDuqonuOMNlaJ3zBM ZcF3d5YiQzEaB3SPryS8B ddiB3FNYrpAOi AWgeKSD6X23gi9F5JREdS DSwVYY8sFJ4sD0beQksby ogbGVmdDsgdmVydGljYWw hVIktB507EISy uNlpGZWduO2oIFXciEEoc CmhXV6iHTKolwnrAe2ERe RJTiwgRUxJWkFCRVRIIEF OTjwvdGQ+PHRk IPG7kOayHShyVGOspI0kD OPyL2c3FgWsCmH5EYwyT5 FaGPIacsmdBj33vP3uQiK wEqT9TBfnC4Gj goA7UZNqaUSkCPekMUH4X 14ho5L7DSDjUCSmZOP0zH V5aH8hyFouatwvkZLdaOk gdmVydGljYWwt VGrlY684HNOsbAesBiD6A oYsRdC8MEU0U1JsIjw1YT PwxOhvWY1hcONoBSwvFw0 xfEweyBryNZ2q YKQzecuhGZDcsE5tXFIzo ZSeeLtzND2wRMEgkupup2 64PxKxWMF7NMVgqOMoW7O jjY9oYqZqFJGw VFAxK1TpzIHlPVvtT394W WgcUlP2EAShmiYvY6AnDO XqsLanHoO2g6V8Pi72HnA ZZWFyczwvdGQ+ LQNzHGN3rWcvVNgxNNYan B0wMXWkY8b7AnOhImK8OJ ngP9OgPHAoztmcWg87aU2 mXeXaQfU1GDvy Y2XxcbF4YGLpoQOcSKpoK KC8O77iu6D0FGLkOUBrTZ A0pVH6qQ3dtCwpcjhmiKS mdDsgdmVydGlj INhyFNhxF473RJWpwVxaP kZFTUFMRTwvdGQ+PHRkIH B0lVdiQAbdJBTfyR7iTLR eP3g8VjKsDbE1 ONowA0SqURXbvirgTo08n B2zQoKnUoK0KSndC9Btto L7QNThfNQlTEnsKDR0P15 uj1M1YAJfEIEg YQC3bFL2nV5bcFrllwlus GVmdDsgdmVydGljYWwtYW eeM698VTFavRpfKg5PEE0 2HA23O7YvVjii dGFibGU+PHRhYmxlIHdpZ HRoPScxMDAlJyBzdHlsZT 9fWu6lAFDvDEPdyKeefZB rJoYoo9fdFMMw HSknHO8bgPveB8GxrGT1R NIps1d7Yr34K08mE1WroH A+JYDigVG1fID4tL7qMmR cNvV4EGuxG651 KkXlfUDtKcbuw9zuz6dwc Yd4JvLnQRTkciNtzUzjOJ R2a2ThAr95S94yUGmbOMW oPSIyMCUiIHZh bWaqbq4lgK8dWc1+PGNvb ZQ8lMD4tW4sPePyLaW2UW ajX571JfVpnQWuIdhiZ24 kB4CsmUV+PHRy Ohs2PIZttNhrFR7jeVFvE BqfPz5hQMP5UiZkMpEhZP lyV0MzNASmgnjsfauigRN 1IXFdOGRnuB92 Ke6mkGydYl0wTVDxPXO1C QZrsOZeD7VbmJ2aFiMrRI MnJLShR9DciNKkVCwuA75 2OXtqPtH6KBIk osWyD4PfBEXfvMrqJhE1h 9U4Iw2GjZkprYCcBR2bYo WjLXi4L6CkPrg1YIRnjMl hBR4olJPcANao Hv8uyOonuChxNY6fBMUpv mpho838ZqTld1gbOJBkiM XhASevTGH1V99kj4B8CCX lOEGdMPA4sFS3 pN6wkUlqvoyrxBHboIhiq zJaxJneCKpyDGmuD905FG GxpGwhEtHIIrx9P7XtHii 6AHZryGqvFA2q xTKnEKyvBn6hzFgyrMliA B1kGSRjozfkv931CtPqz7 ukOTKgdNHmRWkrXMS5N27 yb4R6NCUoUOIt VJH7mUF4fW9zzKzoxeumc GVmdDsgdmVydGljYWwtYW azI773WVYezMxnNh0VHsr 6Q6JlMuq0SCJt kXbzNG7wjUKoWFgiXa6xl InshXxgAD8fLGEzubesu8 86HhBkw7nrDTVdyJEzLJw pAEV6K69bb5J1 TMTrHMTcEIV0dAL5eD7vk GlnbjogbGVmdDsgdmVydG jbSRxrFUsaR853TLSjrDm nPlBheWVyOjwv dGQ+DG41cl22P4VlZpypJ ne0OKImWES1cPZ7bW2eAJ JiWCevf6R8hFI1J4YtrzT nhc9oc2ymPYKk ZTo (more content not included)... [facility] Progress Note - Provideron 0 12-06-2022 Progress Note - Provider [id number] [id number] [facility] Progress Note-Physicianon Progress Note-Physician DATE [...] to proceed. Sarabjit Blanco M.D. JOB #: [id number] [Electronically Signed on: 12/08/2022 10:52 EST] Sarabjit Blanco MD [Verified on: 12/08/2022 10:52 EST] Sarabjit Blanco MD [Transcribed on: 12/03/2022 11:25 EST] [facility] Coding Summaryon 11-22-2022 Coding Summary HTMLBase 64 YcjftarmMLt9oDp+PGhlY WQ+OK2DQOUaR43xcKZmgY 8EE1wMOP4UZZAIUEVHAH1 SFG1tlDF5KQuaP1GkwfCu IwbqtCLwVT29VLf6JNB2h ExsEKhmjX8wiOGnC7g8Li WyBV14cB27LUmqXYQeQyC 3LjZpbjsgbWFy N2zuBaBxrQDsDlz+PHRhY mxlIHdpZHRoPScxMDAlJy JoeMqyWC2cMv5xAQBzBJD vbGxhcHNlOiBj n5hmDUZzCLhpEU9hhQjgV 8HlxHS3LXTba8u4Sj46iP I+UUKtKGO5mJtfPZdxq33 5ItBko3fwCFW1 xQUlPUrjQAB9J74xv6P5H IYnKLIbIVX6hWT8qZ9huM flugebM0OqhSQbWwC7OBR 0zBGurA4hpQih gibtiE5tTzm+V89LKG9BP OEGZK4YKaj9B9AuVolxuF I+GT03LDUjJT60hXGljJD ya7ghlBt6QzIn NWErABF3aWdzGHwzp5OpB IHpG16urHOnh6G9FESmwE pnwOWeBwYkwXB5kV9nLJf pkogij1naygqr Rxnba3ufnt32hR70O56vD IbbOLDgIDS8SCZsGMVoyD ttpb4udD5rBf2+TGhix4g jv3cijGj8MfWj UEHqvxQqeSkzQHW9e3MjF l59W8OghNbfm9NqGqx1lu 24dDFgj3O3jDP9WYsbIXH ekH3zNOobLbX1 PTFvUcFowB23wWCzGXfaO v7gsIhkfEtyHG2nBBTkvk ogMGHbsQ1mECOugQAfqTd nRV1sCVInsypv z880QnOoGMV3DXFuySTgP 6SlwT1bYoHcTJDoSTMrX9 OkzBErIKocY107MOrmXbH 0JVOsrvRqP9Cb FQIjiMlfMrN1d4Z9Mq4Ig 3GpdwnqWXW3VWlvNRNdBw QdBmAgYgN7Y1QhZan4SFW kjPstQT0tK5Mn KFYydwfpigscqEU4NFOkV BXjeK50fNTuPMapDd0ig1 A9c540TSTeGHHcgX84Zj5 udDogMTBwdCBU wO5lpvbgu9kdszblPoHbY VLqIZk0NPe7YBPkbWhwBu NfKCI7NxI7BWQ5uPTzmW4 gxEpikvjaeB5b Oyc+R84ubP2eRRW9KJV6d qtuFBLqoeQtEK87MZ37Z3 RyPjwvdGFibGU+PGRpdiB weNrwRX0iLmMz n6zyr8QyYGgpU4ZuIAElP NjdIlu8YFPfKPZ0iVK3dM 5uIUWbXQmmy1P9rSD1I6Z awxHcig5xz3cv FEMoUFwfI15tbKWrd1V0N UHreBG7MIPzpTckOeHukB 93Oyc+ILPoeTjjo8XfFxo lq6fhg9gbwPa5 UdYiIPYufyCziNmvAAX4g 3GvOu63V93pYIfhYDCjUP FcLBAvZHJdgKluni7ewW9 wIi8+PGNvbCB3 uBT7vD7eWOVeNrC4SSbjL 492VhAczBBzUdsis4mhk7 nauNx2CqIlYYPglxUasVi eWGP0o5OeTi56 V95oVCuiAOHeMPKyMEYrZ EXvxIyhme4zlU0oQa7+PC 6jd3tsey85uI26cAX+PHR hYOU5yFxbRRqg SSJspG5kLCwrUqO7QQFjD eLamO78mALrRZasXe4chZ kokEncVM9iUYOtezawo17 8UmIsg4naCVAa yXGhOXyjNTY0R38pz1V8W GVaPWMlOPU7aAL0gX1icT lnbjogbGVmdDsgdmVydGl qOOfhLBucQ322 IHRvcDsnPlBhdGllbnQgT dDcCHl1H1IaWwh7MSFyjV aaJA4smKCeXAuhAh2xqMz agHdbDH1uHEKh hhnnq232SbGtl7thPHBgn IBgPYtzURJ2Y94qu6Q8ZU OeQUKvNBO8qZX8iV9zzJq nbjogbGVmdDsg yaXgpLsrIIdlMZmqU108M HRvcDsnPkJpcnRoIERhdG O2YS44DU52sWIaw0D1lJE 8J2BuXARxvblh spasnOG1AKOvKNTeuB63T p4qaYduNa3wBZYjNRO1CZ VmjDYyW2ExzC3dTfJmOJF xRCHbV5NscBSa SHucY515RSloZzN5TSVdx tJrX2MzELQkgJqxZiB2s7 S9Rl3YD9A5MQ34IC24cVV da9K5fRB8L9Ey IDIklpjuwzeavZH7XNEiA EQioR93Ta9glTcxYe6jXO GmEYK2PBNvbRAkJ4IedJ8 yOiAjMDAwMDAw F5YxmULeNYmdJ756QLarB kU3UZVcgtViN0GaFVFohE zuOfH7z5M4Vb9HIUq8LB0 2DI43dDGku8Z7 tWJ3W1YlUXRwlhqttifcs DI6RKDxDAFkmV54Lh9rcV paKu4uXIJqSQB0MWEnxLG wV7KkuA0nZbUq NLSrXERlP9MmcTZdVObrP 150FSauLeQ3UPUvhpWjR3 ZfHLJuqZheVmC2l0Z5Xd1 OGFAmET24PQA7 xCL8AI35HZ30N6ZdIbhqc GFibGU+PHRhYmxlIHdpZH RoPScxMDAlJyBzdHlsZT0 tUs3lTKRpJVLo iKshtYXsIrIpe4hfOLMxK BvrEF1nhXiyV7MgoZG1WC Pfb6w3Cp07U56pE1BihRK +DMPpbJT5fYM0 gS9uPdFqVuK2URtuE070M dQlqFAaIvhli7byp4nwcY e1PxS6TMNxnwCjkOwjNYM 2q7PoDe88D78o IHdpZHRoPSIxNSUiIHZhb Cvinm3aeF7aZq0+PGNvbC T6zUG4mV7jExJePvV9TUu vU452ZpYppCIe Xxoae0qku7wxvRj5RqRsB ICnjwYldDseDRX4v5AsJz 94Q2XwtAdeo6EvCsi3ma2 2xCBaf6J7bVP4 Z6JnOVJhxkmfuWUweNuhF R6fECNzecxuEPBjfX3jTJ AiJ9l2QfWwRwW7ULetH2U beiU2XISltPCm RLmmWPI9I15pc2H8TVRaO XUhTUR1dSR1rU0ulIknfb ogbGVmdDsgdmVydGljYWw sEVbhX091UINi aLezYTKzvZ5lXKZhlVFxi QraJH6bDAImsxwpOf8IGt RJTiwgRUxJWkFCRVRIIEF OTjwvdGQ+PHRk ESK2hPutVXjvOORnqQ7bK YGlB0p4PlJmBiX0CCmiR6 TzZFHvhwqpOf21yW1iDuD yMiZ8BGwxR1Dk shU2NYSbjOGjTZavFHG9K 83ux8O7URYmRXSzBUK2yR V2lP7xlGsppbhnmBAilFo gdmVydGljYWwt WCclX574QBVmhVmsZqT3U kFbDxM0KXP5Y4KiJdz0CZ JeyPfyZN0utXMwVOtgTe8 qyVtaxSybTB0u AYCeltpyANHyeF7mLXXkw LAqxThzFG0wAAJcpcunb3 05MfWqMRT3UVZzoQFaV7J qeH9lZwUySFAq LRRrI9QvbZYaAEpuB729S JluUhF8EDQaglXhM1BnME HvvXchWlU0a8S9Ps04RdB ZZWFyczwvdGQ+ ARGsWGT7hUhaKSjmMWKrj C4cXBCqX4s1ZeRyXwG8MT ljP4MdEBGoqhtuJw99fB0 xJkZvNmS0FVih E2JdfkX3GMYgfUZpFKfoH KM3D80cj8E0LWQhXXYrIR I4pFK7mU2gnNnfgmuppTJ mdDsgdmVydGlj YJbvGKemH383XJSaoGwyQ kZFTUFMRTwvdGQ+PHRkIH J3mQouWKbcZHBlgG3qVGB yL5z1AgDwJmD6 LVdmX7UdHYGcyuwwIw73y Q8kXzXnZgP7UDnfJ2Bnzb E9UMXafDQsJJpkTVX0Z95 mq7M6MSAxSXVe LTJ1xXC5hL5nlCfnomfht GVmdDsgdmVydGljYWwtYW abI397NDQdjYtiRa8OHJ0 8NM25Y6UzXtzy dGFibGU+PHRhYmxlIHdpZ HRoPScxMDAlJyBzdHlsZT 0zJq2iYIIsMVSptHnhgQN zDuOdd4ydOXMa NUsrPB6ldHvuT9AqmDE6B SGro6z7Cu31X52vG6ZsjR A+KDHwlIM3jLH2mT0aFbU fLlH7FSabX762 RdLgrRLzLqojr4ctm5iho Rw5WaRbTPCceuOkoVawMG S4o8BjBi98U65tUPzxQGQ oPSIyMCUiIHZh sVeufq6tfH6vTq9+PGNvb BZ1fUS2tA7nBkIzFnS0UF wfX098NbWzlIVgHaqqP29 jI8QcqBY+PHRy Ezo4RPSazNgrYU8upHZjY UpnKk1dKJS8JaLxFjWcAG yjX7ToVUHhkbsbdslgeNF 0BQSpUKWowV48 Bo8ecRcsCa8kGJLeALR2M FSfiHMzR1NgiG6yIdBjAY VwRUGrZ9YcgWRvHNrlG85 1OLpgGyG0WRGk wrXnK7WqXJCjqUcxDdP1d 9U5Tj0MzZuoaQQhQO2pAd JqZGk1J9OpWhy2PFQezYo mKG5srRQxWVyk Js2mnKdhfEhfTN2qSJWhp lliv515BtSnx4yvUHRjwU JrFJzzLZB0W47nl8Q0OYD fRINhXZC3qPM4 eZ2pmCudqcshtYJnvHypg hLuyBgeAKqqFYbbI183ZR WkrIzrJaBACyy8J8VjHyr 8WBJyoHzcSM8z bPOkDFumHw7iuBgheHvfC J3rVNJngrklu913PlEnj2 atGEYxyRHtISxnQVU9M86 zo2M1ADHjONZm CBI6tKJ7lY5snWivrujih GVmdDsgdmVydGljYWwtYW doN509VELgsPnwBv7UBrk 2C9NiBqf6DGCy fKpjRB3bcTTgJTvuXk7ne NcqoHvlLD5oGBZrghnag6 89BiZsf6maFAZwrCQyOPo hIJE2K96eh0P4 SLXmKEEmSDO3nOM4jR8fo GlnbjogbGVmdDsgdmVydG ouOQzfYXftS200AGJnyKh nPlBheWVyOjwv dGQ+AW92sv41Q0SuBownH hn2PBLqFKS0pCD0yL7jPR SnTNomn3S2dLY4F4AxisX dql7hs3rpXUQw ZTo (more content not included)... [facility] XR Spine Lumbosacral Complet e [...] Navarro DO 11/21/22 10:49 a Technologist: GEOFF [facility] MRI LUMBAR SPINE W WO CONTRA STogato 05-20-2020 MRI LUMBAR SPINE W WO CONTRAST [facility] Department of Radiology [address] [place] [id number] Patient Name: BINTA GRAVES : 1980 Sex: F Age: Race: White Pt. Location: Patient Status: D Ordered Date: 05/02/2020 2:00:00 PM Completed Date: 05/20/2020 02:21 PM Requesting Provider: ZAYDA FRAZIER Attending Provider: ZAYDA FRAZIER Report Copy To: Signs & Symptoms: M54.16 Radiculopathy, lumbar region I10 History: [place] Comments: , Recent lumbar surgery, postop numbness left perineum and left leg, evaluate for nerve compression. , Recent lumbar surgery, postop numbness left perineum and left leg, evaluate for nerve compression. , , , Ordering Provider - A [employer] , Exam: MRI LUMBAR SPINE W WO [...] scar tissue or inflammatory/infectio us process. Approved by:Taniasonjaelda Nixon05/20/2020 2:55 PM. I, Yamileth Barragan,have reviewed the images and reports Electronically signed: Yamileth Barragan. Transcribed by: [email or web address], User Resident: EDWARD NIX Electronically Signed by: YAMILETH BARRAGAN @ 05/27/2020 12:36 PM I personally read this/these film(s) with this resident Normal [facility] Comment on above: Order Comment: The A ptima SARS-CoV-2 assay is a nucleic acid amplification test intended for the qualitative detection of RNA from SARS-CoV-2 isolated and purified from nasopharyngeal (GOSPEL SINGER), nasal and oropharyngeal (OP) swab specimens from patients with signs and symptoms of infection who are suspected of COVID-19. Results are for the identification of SARS-CoV-2 RNA. The SARS-CoV-2 RNA is generally detectable in nasopharyngeal and oropharyngeal swabs during the acute phase of infection. The Aptima SARS-CoV-2 Assay on the [place] [employer] [place] [employer] system is intended for use by laboratory personnel specifically instructed and trained in the operation of the [place] [employer] [place] [employer] system. The Aptima SARS-CoV-2 assay is [...] Reporton 0 Operative Report MR#: [id number] I [facility] Pt. Name: Binta Graves Room #: 5AB [id number] Discharge 03/09/2020 Date: Birthdate: 1980 OPERATIVE REPORT [...] Traylor MD Date Trans: 03/21/2020 04:34 P/chrissy [id number] cc: Jerod Deleon M.D. [address] [facility] [address] [facility] *MRSA/MSSA DNA NASALon 03-07 *MRSA/MSSA DNA NASAL Clinical Report: (D ) Specimen: NASAL SWAB Collected: 03/07/2020 10:30 Status: Final Last Updated: 03/07/2020 16:47 MSSA DNA (Final) Negative MRSA DNA (Final) Negative Normal [facility] Comment on above: Performed By: #### 3 [id number] #### [facility] [address] [place] [address], [facility] BASIC METABOLIC PANELon 06 Calcium [Mass/Vol] 8.9 mg/dL Normal 8.6-10.3 [facility] Comment on above: Order Comment: No: D o not add to previous draw Performed By: #### 4 1000, , [id number] #### [facility] [address] [place] [address], [place] Chloride [Moles/Vol] 105 mmol/L Normal 98-107 [facility] Comment on above: Order Comment: No: D o not add to previous draw Performed By: #### 4 1000, , [id number] #### [facility] [address] [place] [address], [place] CO2 [Moles/Vol] 24 mmol/L Normal 21-31 [facility] Comment on above: Order Comment: No: D o not add to previous draw Performed By: #### 4 1000, , [id number] #### [facility] [address] [place] [address], [place] Creatinine [Mass/Vol] 0.75 mg/dL Normal 0.60-1.20 [facility] Comment on above: Order Comment: No: D o not add to previous draw Performed By: #### 4 1000, , [id number] #### [facility] [address] [place] [address], [place] GFR/1.73 sq M predicted among blacks MDRD (S/P/Bld) [Vol rate/Area] mL/min/{1.73_m2} Normal >60 [facility] Comment on above: Order Comment: No: D o not add to previous draw Performed By: #### 4 1000, , [id number] #### [facility] [address] [place] [address], [facility] GFR/1.73 sq M predicted among non-blacks MDRD (S/P/Bld) [Vol rate/Area] mL/min/{1.73_m2} Normal >60 [facility] Comment on above: Order Comment: No: D o not add to previous draw Performed By: #### 4 1000, [id number], [id number] #### [facility] [address] [place] [address], [facility] Glucose [Mass/Vol] 92 mg/dL Normal 70-[address] [facility] Comment on above: Order Comment: No: D o not add to previous draw Performed By: #### 4 1000, , [id number] #### [facility] [address] [place] [address], [facility] Potassium [Moles/Vol] 3.8 mmol/L Normal 3.5-5.1 [facility] Comment on above: Order Comment: No: D o not add to previous draw Performed By: #### 4 1000, , [id number] #### [facility] [address] [place] [address], [facility] Sodium [Moles/Vol] 136 mmol/L Normal 136-[address] [facility] Comment on above: Order Comment: No: D o not add to previous draw Performed By: #### 4 1000, , [id number] #### [facility] [address] [place] [address], [facility] Urea nitrogen [Mass/Vol] 20 mg/dL Normal 7-25 [facility] Comment on above: Order Comment: No: D o not add to previous draw Performed By: #### 4 1000, [id number], [id number] #### [facility] [address] [place] [address], [place] CBC COMPLETE BLOOD COUNTon 0 6- Erythrocyte distribution width (RBC) [Ratio] 13.4 % Normal 11.5-15.0 [facility] Comment on above: Order Comment: No: D o not add to previous draw Performed By: #### 5 0608 #### [facility] [address] [place] [address], [facility] Hematocrit (Bld) [Volume fraction] 44.1 % Normal 36.0-45.0 [facility] Comment on above: Order Comment: No: D o not add to previous draw Performed By: #### 5 0608 #### [facility] [address] [place] [address], [facility] Hemoglobin (Bld) [Mass/Vol] 14.4 g/dL Normal 12.0-15.0 [facility] Comment on above: Order Comment: No: D o not add to previous draw Performed By: #### 5 0608 #### [facility] [address] [place] [address], [facility] MCH (RBC) [Entitic mass] 27.0 pg Normal 27.0-33.0 [facility] Comment on above: Order Comment: No: D o not add to previous draw Performed By: #### 5 0608 #### [facility] [address] [facility] [place] [address], [facility] MCHC (RBC) [Mass/Vol] 32.7 g/dL Normal 32.0-35.0 [facility] Comment on above: Order Comment: No: D o not add to previous draw Performed By: #### 5 0608 #### [facility] [address] [facility] [place] [address], [facility] MCV (RBC) [Entitic vol] 82.7 fL Normal 82.0-98.0 [facility] Comment on above: Order Comment: No: D o not add to previous draw Performed By: #### 5 0608 #### [facility] [address] [place] [address], [facility] Nucleated RBC/100 WBC (Bld) [Ratio] 0 % Normal 0-0 [facility] Comment on above: Order Comment: No: D o not add to previous draw Performed By: #### 5 0608 #### [facility] [address] [facility] [place] [address], [facility] PLAT CNT 194 10*3/uL Normal 150-400 The [facility] Comment on above: Order Comment: No: D o not add to previous draw Performed By: #### 5 [id number] #### [facility] [address] [facility] [place] [address], [facility] RBC (Bld) [#/Vol] 5.33 10*6/uL High 3.80-5.00 [facility] Comment on above: Order Comment: No: D o not add to previous draw Performed By: #### 5 0608 #### [facility] [address] [facility] [place] [address], [facility] WBC (Bld) [#/Vol] 8.71 10*3/uL Normal 4.00-10.60 [facility] Comment on above: Order Comment: No: D o not add to previous draw Performed By: #### 5 0608 #### [facility] [address] LUMBAR SPINE 2 OR 3 [facility] LUMBAR SPINE 2 OR 3 [facility] Department of Radiology [address] [place] [phone] Patient Name: BINTA GRAVES : 1980 Sex: F Age: Race: White Pt. Location: [id number] Patient Status: I Ordered Date: 03/07/2020 1:00:00 [...] images. Electronically signed: Moris Vegas. Transcribed by: [email or web address], User Resident: Electronically Signed by: MORIS VEGAS @ 03/08/2020 08:49 AM Normal The [facility] Comment on above: Order Comment: The A ptima SARS-CoV-2 assay is a nucleic acid amplification test intended for the qualitative detection of RNA from SARS-CoV-2 isolated and purified from nasopharyngeal (GOSPEL SINGER), nasal and oropharyngeal (OP) swab specimens from patients with signs and symptoms of infection who are suspected of COVID-19. Results are for the identification of SARS-CoV-2 RNA. The SARS-CoV-2 RNA is generally detectable in nasopharyngeal and oropharyngeal swabs during the acute phase of infection. The Aptima SARS-CoV-2 Assay on the [employer] Fusion system is intended for use by laboratory personnel specifically instructed and trained in the operation of the [place] [employer] [place] [employer] system. The Aptima SARS-CoV-2 assay is [...] Magnesium [Mass/Vol] 1.9 mg/dL Normal 1.9-2.7 [facility] Comment on above: Order Comment: No: D o not add to previous draw Performed By: #### 4 1000, [id number], [id number] #### [address] OUTSIDE CONSULT NEUROon OUTSIDE CONSULT NEURO [facility] Department of Radiology [address] [place] [phone] Patient Name: BINTA GRAVES : 1980 Sex: F Age: Race: White Pt. Location: [id number] Patient Status: I Ordered Date: 03/06/2020 7:05:00 PM Completed Date: 03/07/2020 11:41 AM Requesting Provider: DAKOTA TRAYLOR Attending Provider: ARNEL GARSIA Report Copy To: Signs & Symptoms: NEED CONSULT History: Lumbosacral transitional anatomy CT of the L-Spine without contrast done on 03/04/2020 At the [facility] Requesting Dr. Dakota Traylor Comments: Exam: OUTSIDE CONSULT NEURO OUTSIDE CONSULT NEURO 03/07/2020 11:41 AM OUTSIDE STUDY: Lumbar spine CT scan TECHNIQUE: Outside CT images of the lumbosacral spine obtained from the [facility] dated March 04, 2020. Image review with [...] interpretation. Electronically signed: Ольга Johnson. Transcribed by: [email or web address], User Resident: Electronically Signed by: ОЛЬГА JOHNSON @ 03/07/2020 01:03 PM Normal [facility] PHOSPHORUS BLOODon 0 Phosphate [Mass/Vol] 3.5 mg/dL Normal 2.5-5.0 [facility] Comment on above: Order Comment: No: D o not add to previous draw Performed By: #### 4 1000, 87430, [id number] #### [facility] [address] [place] [address], [facility] POC GLUCOSE LABon 03-07-2020 Glucose [Mass/Vol] 97 mg/dL Normal 70-100 [facility] Comment on above: Performed By: #### 8 9099 #### [facility] [address] [place] [address], [facility] TYPE AND SCREENon 03-07-2020 ABO INTERPRETATION O Normal [facility] Comment on above: Performed By: #### 6 2586 #### [facility] [address] [place] [address], [facility] RH INTERPRETATION Negative Normal [facility] Comment on above: Performed By: #### 6 2586 #### [facility] [address] [place] [address], [facility] *SARS-CoV-2 COVID-19on 03-06 [id number] Not Detected Normal Not Detected The [facility] Comment on above: Order Comment: The A ptima SARS-CoV-2 assay is a nucleic acid amplification test intended for the qualitative detection of RNA from SARS-CoV-2 isolated and purified from nasopharyngeal (GOSPEL SINGER), nasal and oropharyngeal (OP) swab specimens from patients with signs and symptoms of infection who are suspected of COVID-19. Results are for the identification of SARS-CoV-2 RNA. The SARS-CoV-2 RNA is generally detectable in nasopharyngeal and oropharyngeal swabs during the acute phase of infection. The Aptima SARS-CoV-2 Assay on the [place] [employer] [place] [employer] system is intended for use by laboratory personnel specifically instructed and trained in the operation of the [place] [employer] [place] [employer] system. The Aptima SARS-CoV-2 assay is [...] information. Performed By: #### 3 1792 #### [facility] [address] [place] [address], [facility] MRI LUMBAR SPINE WO CONTRAST on 03-06-2020 MRI LUMBAR SPINE WO CONTRAST [facility] Department of Radiology [address] [place] [phone] Patient Name: BINTA GRAVES : 1980 Sex: F Age: Race: NA Pt. Location: [id number] Patient Status: I Ordered Date: 03/06/2020 6:40:00 [...] narrowing Electronically signed: Yamileth Barragan. Transcribed by: [email or web address], User Resident: Electronically Signed by: YAMILETH BARRAGAN @ 03/06/2020 07:54 PM Normal [facility] Comment on above: Order Comment: Spina l Stenosis, patient with left s1 radicular type pain - has transitional lumbo-sacral anatomy based on CT scan Encounters Encounter Date Encounter Type Care Provider Facility Start: 05-29-2024 End: 05-29-2024 ambulatory JEROD DELEON Not Available Start: 02-23-2024 End: 02-23-2024 ambulatory JEROD DELEON Not Available Start: 02-20-2024 End: 02-21-2024 ambulatory Karina Rodriguez MD [facility] Start: 02-13-2024 End: 02-14-2024 ambulatory Karina Rodriguez MD [facility]: [facility] Start: 02-09-2024 End: 02-10-2024 ambulatory DAKOTA [facility] Start: 02-01-2024 End: 02-02-2024 ambulatory [facility] Start: 01-20-2024 End: 01-20-2024 ambulatory JEROD DELEON Not Available Start: 12-28-2023 End: 12-29-2023 ambulatory [facility] Start: 12-16-2023 End: 12-16-2023 ambulatory JEROD DELEON Not Available Start: 02-25-2023 End: 02-26-[address] JEROD DELEON Facility: Start: 12-29-2022 End: 12-29-2022 ambulatory [facility] Facility:[facility] Start: 12-22-2022 End: 12-23-2022 ambulatory [facility] Facility:[facility] Start: 12-15-2022 End: 12-15-2022 ambulatory [facility] Facility:[facility] Start: 12-01-2022 End: 12-02-2022 ambulatory [facility] Facility:[facility] Start: 11-19-2022 End: 11-20-2022 ambulatory [facility] Facility:[facility] Start: 12-31-2021 Transcribe Orders Stephanie Grubbs [facility] Physician Referral Service Start: 05-20-2020 End: 05-21-2020 Patient encounter procedure Zayda Freddie Facility:[facility] Start: 03-06-2020 End: 03-09-2020 Evaluation and management of inpatient ARNEL GAVINO Facility:[facility] Procedures Date Procedure Procedure Detail Performing Clinician Start: 03-07-2020 EXCISION OF LUMBOSAC RAL DISC, OPEN APPROACH DAKOTA TRAYLOR Start: 03-07-2020 RELEASE SACRAL NERVE , OPEN APPROACH DAKOTA TRAYLOR Start: 03-07-2020 Antibody screen ARNEL [place] [facility] Comment on above: Performed By: #### 6 2586 #### [address] Plan of Treatment Date Care Activity Detail Author Start: 05-03-2021 Influenza vaccination Influenza Vacc ine (#1) [facility] Start: 2001 Screening for malign ant neoplasm of cervix Pap Smear [facility] Start: 1998 Hepatitis C screening Hepatitis C An tibody [facility] Start: 1998 Tetanus + diphtheria + acellular pertussis vaccine (product) Tdap Booster [facility] Start: 1995 HIV [facility] Start: 1985 COVID-19 Vaccine (1) COVID-19 Vaccin e (1) [facility] Payers Date Payer Category Payer Unknown [id number] 2022 Unknown [id number] 2021 Unknown [id number] 1980 Unknown [id number] 2.16.8 [id number] 1980 Unknown [id number] 2.16.8 40.1.209003.3.579.2.647 1980 Unknown [id number] 2.16.8 40.1.771801.3.579.2.718 1980 Unknown [id number] 2.16.8 40.1.937475.3.579.2.718 1980 Unknown [id number] 2.16.8 40.1.602752.3.579.2.8 1980 Unknown [id number] 2.16.8 40.1.222233.3.579.2.718 1980 Unknown [id number] 2.16.8 40.1.166177.3.579.2.718 1980 Unknown [id number] 2.16. 840.1.145141.3.579.2.196 1980 Unknown [id number] 2.16. 840.1.653846.3.579.2.196 1980 Unknown [id number] 2.16.84 0.1.345026.3.579.2.9 1980 Unknown [id number] 2.16.84 0.1.771563.3.579.2.9 1980 Unknown [id number] 2.16.84 0.1.915537.3.579.2.9 1980 Unknown [id number] 2.16.84 0.1.519159.3.579.2.1259 1959 Self-pay [id number] Unknown [id number] 2.16.84 0.1.123297.3.579.2.593 Social History Date Type Detail Facility Tobacco smoking stat [facility] Tobacco smoking consumption unknown [facility] Start: 1980 [facility] note 12-30-2022 Note Date & Type Note Facility 12-30-2022 Note [id number]#1.00OTGTI FF [facility] Clinical Note 12-29-2022 Note Date & Type Note Facility 12-29-2022 Note [facility] SURGERY Clinical Discharge Summary PERSON INFORMATION Name BINTA GRAVES Age 42 Years 1980 Sex FEMALE Language Greek PCP JEROD DELEON Marital Status Med Service Pain Management Surgery Acct# Arrival 12/29/2022 07:38:41 Visit Reason LOW BACK PAIN Acuity LOS 012 22:22 Address: [address] [place] [address] Comment: PROVIDER INFORMATION VITALS INFORMATION Vital Sign [...] spine; Lumbar spondylosis Comment: PHYS DOC NOTES [facility] History and physical note 12-28-2022 Note Date & Type Note Facility 12-28-2022 Note [id number] FF The patient has been examined and the medical record reviewed. The indications for surgery and exam are unchanged. [Electronically Signed on: 12/29/2022 08:15 EDT] Sarabjit Blanco MD [Verified on: 12/29/2022 08:15 EDT] Sarabjit Blanco MD [Transcribed on: 12/28/2022 14:33 EDT] [facility] Medication management note 12-16-2022 Note Date & Type Note Facility 12-16-2022 Note [id number] FF [facility] Clinical Note 12-15-2022 Note Date & Type Note Facility 12-15-[address] [facility] MH SURGERY Clinical Discharge Summary PERSON INFORMATION Name BINTA GRAVES Age 42 Years 1980 Sex FEMALE Language Greek PCP JEROD DELEON Marital Status Med Service Pain Management Surgery Acct# Arrival 12/15/2022 07:50:00 Visit Reason LOW BACK PAIN Acuity LOS 012 00:14 Address: [address] [place] [address] Comment: PROVIDER INFORMATION VITALS INFORMATION Vital Sign [...] spine; Lumbar spondylosis Comment: PHYS DOC NOTES [facility] History and physical note 12-15-2022 Note Date [...] Anterolisthesis of lumbosacral spine / SNOMED CT 542880645 / Confirmed Lumbar spondylosis / SNOMED CT 331879807 / Confirmed, Active Problems (2) Anterolisthesis of lumbosacral spine Lumbar spondylosis Histories Family History: No family history items have been selected or recorded. Procedure history: Facet joint nerve block ([id number]) on 12/15/2022 at 42 Years. Comments: 12/15/2022 8:01 Gail Mello [place] [id number] Social History Social & Psychosocial [...] (DEC 15 08:) Weight 118.90 kg (DEC 15:) Height 172.72 cm (DEC 15:) , Measurements [...] Gastrointestinal: Soft, Non-tender, Non-distended. Integumentary: Warm, Dry, [place]. Neurologic: Alert, Oriented. Psychiatric: Cooperative. Review / Management Results review: Lab results: 12/15/2022 8:04 EDT U Preg Negative . Impression and Plan Lumbar Spondylosis , Procedure explained to patient along with risks of possible complications and patient wishes to proceed. [Electronically Signed on: 12/15/2022 09:04 EDT] Sarabjit Blanco MD [Verified on: 12/15/2022 09:04 EDT] Sarabjit Blanco MD [facility] History and physical note 12-14-2022 Note Date & Type Note Facility 12-14-2022 Note [id number] IFF The patient has been examined and the medical record reviewed. The indications for surgery and exam are unchanged. [Electronically Signed on: 12/15/2022 09:02 EDT] Sarabjit Blanco MD [Verified on: 12/15/2022 09:02 EDT] Sarabjit Blanco MD [Transcribed on: 12/14/2022 13:35 EDT] [facility] Evaluation note Note Date & Type Note [...] Records Found Hospital Course Note MR#: [id number] [facility] Pt. Name: Binta Graves Admitted: 03/06/2020 Discharged: 03/08/2020 Date of : 1980 Physician: Arnel Garsia MD DISCHARGE SUMMARY PRIMARY CARE PHYSICIAN: None. CONSULTING PHYSICIAN: [facility] FINAL DIAGNOSES: 1. Acute lumbar radiculopathy/lumbar spine stenosis, status post laminectomy, doing well. 2. Essential hypertension, stable. 3. Polycystic ovarian disease, on metformin. 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 [employer], presented to the hospital with worsening of [...] Specialty Diagnoses / Procedures Referred By Jerel hermosillo Referred To Contact Internal Medicine Diagnoses Obesity, morbid, BMI 40.0-49.9 (HCC) Procedures [facility]ICE REQUEST LVL 3 EST PT, LOW MDM, 20-29 MINUTES Jerod Deleon MD [address] [place] [address] Weight [place] [address] Referral ID Status Reason Start Date Expiration Date V isits Requested Visits Authorized [id number] Authorized 12/31/2021 12/31/2022 10 10 Additional Source Comments INFORMATION SOURCE (unrecogn ized section and content) DATE CREATED AUTHOR 05/28/2020 [facility] DATE CREATED AUTHOR AUTHOR'S ORGANIZ ATION 03/11/2023 [facility] DATE CREATED AUTHOR AUTHOR'S ORGANIZ ATION 03/11/2023 [facility] DATE CREATED AUTHOR AUTHOR'S ORGANIZ ATION 02/11/2024 [facility] DATE CREATED AUTHOR AUTHOR'S ORGANIZ ATION 02/26/2024 [facility] DATE CREATED AUTHOR AUTHOR'S ORGANIZ ATION 05/31/2024 [facility] [employer] EPIC FOR RECORDS PERTAINING TO PATIENTS WHO ARE [...] BE BASED ON THE PRIMARY CLINICAL RECORDS. [employer] provides no warranty or guarantee of the accuracy or completeness of information in this document.
[2024-06-07 07:39] LABS: Basophils Absolute Auto 0.1 10^3/uL (0.0-0.1); Basophils Percent Auto 0.9 % (0.2-2.0); Eosinophils Absolute Auto 0.1 10^3/uL (0.0-0.7); Eosinophils Percent Auto 1.5 % (0.9-7.0); Hematocrit 40.5 % (36.0-48.0); Hemoglobin 13.3 g/dL (12.0-16.0); Immature Granulocytes Abs Auto 0.03 10^3/uL (0.00-0.03); Immature Granulocytes Pct Auto 0.4 % (0.0-0.5); Lymphocytes Absolute Auto 1.7 10^3/uL (1.2-3.8); Lymphocytes Percent Auto 24.6 % (20.5-60.0); Mean Corpuscular HGB Conc 32.8 g/dL (29.9-35.2); Mean Corpuscular Hemoglobin 27.4 pg (26.7-34.0); Mean Corpuscular Volume 83.5 fL (81.0-99.0); Mean Platelet Volume 9.7 fL (9.5-13.5); Monocytes Absolute Auto 0.5 10^3/uL (0.3-0.8); Monocytes Percent Auto 6.7 % (1.7-12.0); Neutrophils Absolute Auto 4.4 10^3/uL (1.4-6.5); Neutrophils Percent Auto 65.9 % (43.0-75.0); Platelet Count 237 10^3/uL (150-450); Red Blood Count 4.85 10^6/uL (4.20-5.40); Red Cell Distribution Width 12.9 % (11.0-15.0); White Blood Count 6.7 10^3/uL (4.0-11.0)
[2024-06-07 08:32] LABS: Alanine Aminotransferase 29 U/L (14-59); Anion Gap 11.8; Aspartate Amino Transferase 18 U/L (15-37); BUN Creatinine Ratio 11.3; Bilirubin Total 0.7 mg/dL (0.2-1.0); Calcium 8.7 mg/dL (8.5-10.1); Carbon Dioxide 28.1 mmol/L (21.0-32.0); Chloride 104 mmol/L (98-107); Estimated GFR (African America >60 (>=60); Estimated GFR (Non-African Ame >60 (>=60); Glucose 109 mg/dL (74-106); Potassium 3.9 mmol/L (3.5-5.1); Sodium 140 mmol/L (136-145)
[2024-06-07 08:33] LABS: Albumin Globulin Ratio 1.1; Albumin Level 3.4 g/dL (3.4-5.0); Alkaline Phosphatase 68 U/L (46-116); Chol HDL Ratio 2.4; Cholesterol 183 mg/dL (<=200); Globulin 3.2 g/dL; HDL Cholesterol 77 mg/dL (40-60); Thyroid Stimulating Hormone 0.912 uIU/mL (0.358-3.740); Total Protein 6.6 g/dL (6.4-8.2); Triglycerides 88 mg/dL (<=150); VLDL CHOLESTEROL 17.6 mg/dL
[2024-06-07 08:55] LABS: Estimated Average Glucose 97 mg/dL
== END 2024-06-07 07:16 | disposition home or self-care (01) ==
LOC: LAB 07:16
PROVIDERS: PCP Family Medicine; Visit Provider Family Medicine
DX: Z00.00 Encounter for general adult medical examination without abnormal findings (principal)
CPT/HCPCS: 36415; 80053; 80061; 83036; 84443; 85025

== ENCOUNTER 2024-06-18 13:35 | Outpatient (OUT) | payer BC, SELFPAY ==
--- NOTE | 2024-06-18 13:12 | P.CN_ITS ---
Consult Note: HPI Data of Consult Patient: known to practice within the last 3 years Consult date: 06/18/24 Requesting Physician: Karina Rodriguez MD Primary Care Provider: Jerod Paiz MD Consult Narrative Reason for consult: low back, bilateral lower extremity pain Narrative: 44yof who presents for assessment. worsening low back pain with radiation into bilateral lower extremities. previously underwent lumbar tfesi with >50% relief for >3 months. imaging shows disc bulge at l5-s1 with moderate canal stenosis at S1-2. continues to engage in a series of provider directed home exercises for >6 weeks, without benefit. uses otc nsaids and muscles relaxers as needed. denies adverse med side effects. cc:: CC: Karina Rodriguez MD Review of Systems ROS Status of ROS 10 or more systems reviewed and unremark able except as noted in history and below [facility] Medical History Low back pain ?M54.50 - Low back pain, unspecified (ICD-10) Lumbar spondylosis ?M47.816 - Spondylosis without myelopathy or radiculopathy, lumbar region (ICD-10) Surgical History History of delivery ?Z98.891 - History of uterine scar from previous surgery (ICD-10) H/O tubal ligation ?Z98.51 - Tubal ligation status (ICD-10) History of carpal tunnel surgery ?Z98.890 - Other specified postprocedural states (ICD-10) H/O arthroscopic knee surgery ?Z98.890 - Other specified postprocedural states (ICD-10) History of lumbar laminectomy ?Z98.890 - Other specified postprocedural states (ICD-10) Meds Home Medications and Allergies Home Medications ?Medication ?Instructions ?Recorded ?Confirmed ?Type baclofen 10 mg tablet 10 mg PO DAILY 02/06/24 02/20/24 History ibuprofen 800 mg tablet 800 mg PO BID PRN pain 02/06/24 02/20/24 History losartan 50 mg tablet 50 mg PO DAILY 02/06/24 02/20/24 History metformin 500 mg tablet 500 mg PO BID 02/06/24 02/20/24 History zonisamide 50 mg capsule 100 mg PO DAILY 02/06/24 02/20/24 History Allergies Allergy/AdvReac Type Severity Reaction Status Date / Time No Known Drug Allergies Allergy Verified 02/20/24 11:17 Exam Narrative Exam Narrative: Psych-alert and oriented x 3. Attentive and appropriate, constitutionally normal, displays normal mood and affect per situation. There are no obvious deficits in memory, reasoning, or intellect.? Skin-no obvious rashes, bruising, erythema noted to the patient's area of pain.? Extremities- extremities are warm with minimal edema and palpable pulses. Lumbar-tenderness to palpation noted in the lumbar spine and paraspinal musculature. Pain is elicited with flexion, extension, and lateral rotation of the lumbar spine. Range of motion is diminished with these motions. Facet loading maneuvers are positive.? Strength-noted to be unremarkable with the exception of decreased strength rated at 4 out of 5 in bilateral quadriceps femoris, anterior tibialis, posterior tibialis. Sensory-no notable sensory deficits in the bilateral lower extremities to touch or pinprick in all dermatomal distributions with the exception to decreased sensation to the bilateral L5, S1 dermatomal distribution Sacroiliac - tender to palpation over bilateral PSIS. Positive Von's bilaterally. Positive thigh thrust bilaterally. Coordination remains intact.? Gait remains non-antalgic. Assessment and Plan Assessment and Plan (1) Lumbar post-laminectomy syndrome: (2) Lumbar stenosis with neurogenic claudication: (3) Sacroiliac joint disease: Plan 44yof who presents for assessment. failed conservative measures, as noted. imaging reviewed, as noted. given symptoms and imaging, prudent to attempt bilateral s1-2 tfesi under fluoroscopic guidance. may even benefit from bilateral sij injection. she is in agreement. meds reviewed, no changes. follow up after procedure.
== END 2024-06-18 13:36 | disposition home or self-care (01) ==
LOC: PM 13:35
PROVIDERS: PCP Family Medicine; Visit Provider Anesthesiology
DX: M48.062 Spinal stenosis, lumbar region with neurogenic claudication (principal); Z98.890 Other specified postprocedural states; M53.3 Sacrococcygeal disorders, not elsewhere classified
CPT/HCPCS: G0463

== ENCOUNTER 2024-06-25 10:51 | Day surgery (SDC) | payer BC, SELFPAY ==
--- OUTSIDE RECORDS SUMMARY | 2024-06-25 11:12 | XMS_ITS | CCD ---
Author Organization [facility] Care Team Providers Care Box Car Loader Name Role Phone GAVINO, ARNEL Admitting Unavailable GAVINO, ARNEL Attending Unavailable MEENAKSHI SAMMI A Referring Unavailable NADERER, JEROD Primary Care Unavailable PA Procedure Practitioner Unavailab le UNKNOWN, PROVIDER Surgeon [...] DAKOTA Referring Unavailable TRAYLOR, DAKOTA Attending Unavailable NADERER, JEROD Attending Unavailable NADERER, JEROD Attending Unavailable NADERER, JEROD Attending Unavailable NADERER, JEROD Attending Unavailable Gijannetteitis , Andri Vytminor Attending Unavailable Kathyitis , Andrius Vytautas Attending Unavailable Jennifer ARZOLA, Andrius Vytautas Attending Unavailable Allergies Allergy Classification Reported Allergen(s) Allergy Type Date of Onset Reaction(s) Facility (1 source) No Known Medication Allergies; Translations: [No Known Medication Allergies] Propensity to adverse reactions to drug (disorder) [facility] Repository (1 source) ALLERGIES NOT ON FILE; Translations: [ALLERGIES NOT ON FILE] Propensity to adverse reactions (disorder) [facility] Repository Problems Problem Classification Problem Date [...] Range Facility Orders Onlyon 01-18-2024 Orders Only [id number] Binta Graves 1980 F Date Provider Department Center 01/18/2024 ZAYDA MARTINS ONC DCC No family history on file Normal [facility] Coding Summaryon 03-03-2023 Coding Summary HTMLBase 64 PcyulczvDHh0mNq+PGhlY WQ+IV5AAHYaW45qzOLrtS 5eZ8NQUTuBLkmwOPPQCMx CWtVwicKoEC6qdOReOPEs IC8+ZY4cCUNkEwjxfRMho 5L4gDN8Y23ard0nMCvpwW H9EWKjHbXcofdkq8ygvVd 6IDcuNmluOyBt PYLijL62LZZ6yL28Pv47v GPipYSup2bmaQa6GjYsHP EwYDI7gIciYGfag3HnSWB nQ01aaHQen4I9 WFDxkMwiqPSxJxLllXR0w S5xFVvvkwptr2phggteYh w2lm59mWHyy6F2yEG7H4P tujK4QHUpzHLl ReeyuYJImI1sawecx3ysz kzkFwDaFAWpJNn4FQx2FA XtkCtbUoNmVI80XPQ4KNX dvrDdW8IjYDTk fXrvFxL1a7H1Xd9VE9OBB arhG0OJZDYYCBhfkDW+PC 18fo68H4IrTeuxDlr8ZJL cPGE9oWW1hO9m OZOlUYalf4F8yYQ0B8Zig iTdgk1kg8odZVGoGXmjV7 4mhVScu9Q8LNKvkHB4VYD mdJmlCkNxtT14 Oyc+VNMosLlqh6ZrCgbkz 1lkk1sdpFo2MvdzVZLnna QibPwbRKH2r4KqJo6uHZR bnXX9uMX8qB0x LeGzVfI0EExrZ593QeKdq AVmChqyY29jG4UksYW+PH QeYue4KFTekAvhHD5pN6Y hZGRpbmctbGVm sTybNE3jNMHpbiraALHie X9aCEQlH5f3KvUfBcT7JG quO7JgDJUsvlifVf66oM9 wUiQkCiB3GFpb S0EkxuC0VROmeAAfJEpnI MR0V97xq7R4YXOmZIRcFJ N6fXE8gZ6ikSttjobysCP mdDsgdmVydGlj IEqaJKniC701ZUJlyYngE kNvZGluZyBEYXRlOiAgMD YvMDEvMjAyMzwvdGQ+PHR pSNH0rGzpPFZx mMHoNLmuOn8ncPqoaLmaH Z5hOEYpkhlyGQFzpU5sRK IojZHpxKgbQU1vUWLosjx av945RnYeVCC8 HGWqbBOvW8FarO8vMiHhW YPrOSFzF0BlmDRaQVbmA2 31XFluRaI6WMQhmbVfK2A sLWFsaWduOiB0 z8P7Qn7Ws5RavegsJ7Bdf LJwFtZuHtazCVk7S6GjSo wvdHI+SI50PRGfMU84NNs 4PNA6iTxbVJuf NYCzM3QweI1vGiRlMXClV GRkOyc+PHRhYmxlIHdpZH RoPScxMDAlJyBzdHlsZT0 oIn3oXGZyRCBq zCgotOUkMaVal0pbDHZyD WnmDG0elTjfQ5VeiVU0CY Yrg1n9Ya02L08gK9HulZW +ZLJduNZ2wVH5 wG7gYkXqLqN9NBssK974T gJvqATqBunla3tlf9ungD f7LvU4LLDmgxPokIsvCQK 8h5CaIx23Z82c IHdpZHRoPSIxNSUiIHZhb Syqsw9lmM5fSw4+PGNvbC I5gWD8jI7gCfCrDvB5HPk gK784TnZnkFJf Frsas9vtk8tfvJy4DdOvZ LXwezRbbIpbDJF5y7TsXz 36R3AsfHcma8GcMqh8cw3 3zRBmo6P7dAC4 Q2LeQOAmbehmoBPkpEkcK Y7sGHWdupjgZERghU8tSA LhF4x0TmZgZjP4PGtlU0X qhfF9WPVdkBGy KWBpcBXFmG5ykrvyr9hxb mqxXyElRZAyPMm1HMh3UJ LhsPotMoWwKGI9QdU6LEW 0iPAhnT8hqBan kvuzkI3lBgs+HDW9qPDqe NXCIQ8gYxobdXB+PHRkIH F2wOvdURkjZZMubU6jZGM oT1x4UuVpKdW9 RErcW5XyaaY9AJTslBBzX CPmsRXNyQ7ewwxbw7exmz tfHtCrKPQoERj7ZTw8AXL saWduOiBsZWZ0 LwM0CIO3lRFbgC7ejRjas zhkpB3aSls+QmlydGggRG P1GGh9V2KdGob0LJHntDn hHF4cvACsBStj Im7epZeerLmhKX3vDORmr jjlh331ChSia9fvVMCtvF BdDBomNZP4V18ci2Q4EEL vAVIzAOV1mYD0 cT5woJnquulldHGwkVogd vAqkPsxLZifICfmN512BM GogYdyHmAgRGq5Q7VsDqz 0SWHmaAxuOH3f tJSkGAviFg8rvNzilBchH M2cCLPywjmso716EjOni0 axLACsoMDdZLfjYWI9Q86 av8Z9XMOoJIRx TRY0eTF9jI8jjHmwwueyb GVmdDsgdmVydGljYWwtYW kxM686BLYoxQirDbHsjQl 2S0MrHoa9MVPn aYhfLC8bpVKnLZhiPw5oi KswbMofKC7sETHlcrlbm9 05JbOta3kqMVTadHOqEDs mTNV0O06lr3Y1 EVOhSVMfTCX3cRB7lW6ce GlnbjogbGVmdDsgdmVydG bsEImuWOaoH227GGDqqCb nPlBhdGllbnQg RPicPKv1B8UoEiispMB+P T71FLBrMC49qFXikQAdb4 gonJg4PjQoRWDeLSJ9jMn vEEhcf7XkEZTa A60ghSWkb0S2GJQqqLhco ZFaQdPuxWA7sX1kATslsq qwi5ooniufNgdty5aofi4 8vM52E31eDDio ZHRoPSIzMCUiIHZhbGlnb o9sdM8xNm0+DJPikWQ8gO Q7rH4oKXJiTmK1WXphX06 9InRvcCIvPjxj a7wrd9rwqBr8GoY6GTWow tDbnChwGJE2j8HkYr43K5 9sIHdpZHRoPSIyMCUiIHZ qfXhzpe0lxK4o Ii8+UFDhrWU9bKT4eK4kB uNjYjE1XAdbM947MwNdqN WrQsdvT72kN4KweTE+PHR oAaw5AZMytTjp HB2krIUcYLokSu0lADJ3R pSdLrZbKBmrI5SqDYMpql izxwcpqHD7PWRbZEGbyO5 9Xz2ryVkpYXQz yUJOcC5gddric5urmuwfI eSdGMLxDLa3KPp5MJPnrP qoEvVpOOH5GmK4QGQ6oEI hyG7pkQgrgtdd lR4tZ9SzYDMusymeFb90z O5bJzNdDsS5PHdnJfo+TU FSVElOLCBFTElaQUJFVEg sRF2LAQ11TK31 hTYkn1Z1oUF2P2OqQZZgf oowoutovAQ8OTKxZJQqqM 13rIGyKSmwIa6jl6P5e22 8LNOoCVPbuV81 Jv9gmRkrODYjhCXGmA5ks vnfc0ebywuvXrRzLKOkUU w9JWw4QBLnpHmbVfUvQUR 8RaO6UZG6vXVq lB9mcOcolwitrD7wAvb+M JowFFFvHIt3KOeigLB+PH LcTUB8sMjfUNwoTGYyaO5 nYJFlD8n9KxAj PuO9QTbhY3VmIDKgvoyxV n91jM8nQcTiHzD9CSjsI3 UhcjS7VDUmgMSfVUcbUAP 9S36ze0A7IRHq KHToSKC1gXP5dF1duPhgd jogbGVmdDsgdmVydGljYW duNTasH583MBZdjRehTzW qYHaeVNFiDB64 UW72hZXhp6L7tHP5R0JhX ATftqvehhvhyTD5ZEVsDL OrvY70qFKmHAiySx9ja8E 8m033CWVwUDOc cF69Eq8yxOrjRLLvdJNYi A4dhpvvk7gfjndcPuCaSR SvWFd6FCm1JUIjbJsnTfT iIDQ9DjP1FNN1 hNNblL9qpWjnnfnoeL9iS yc+WyLCVRuRZR97PC01mF Shw2A8gGC1C1BqLYZrisq vpauboSY7WSIm GJLwmO99fIExXPliNx2dj 9G3x596KKXjHXAhsW11Aq 4yeKgrUMEyiVDSfV0icmt ma1legoneZsNp PDXuJMh5XWj1LOOjaKkeE kTsFWS3JjC9HLA4dQAfbS 3ghFdmvvuraY2nTai+T1A 1W9HqIkdbaRF+ BL37WXQpPU32aUHhuFNgi 7wnjUa0VqWjIVImVQB0jX ixBUqzl3FfIUSjG60qjJZ sb1D4RPMrjDiz pZFqAkLwmWT4fA3jFVgsk giqy0phoyxjGdtym0tmza 28xC22Z85oJDohWOIpHMH zMCUiIHZhbGln ob4xtI1aMg7+WAQidXK8m CJ7gG5gOrAfUsT8NWzqF8 97ArMizHUzHxviq6dao2e kpHa9MlMsXWPu ejElvCbvVYA9p6MzRc57J 29sIHdpZHRoPSIyMCUiIH TtbYdcqm1poW3cTe3+PC9 sv5xrmb26iB40 dHI+SYUkKVV1bOfzAOzeD AUuxA9nRPytGwD1BOKgGa DryM89zGTbZUuwLm3xxFp ptGvfZL6rTAZg qgxch799SyUua2gzRTNfx DFvRClvXQP2W29pp2M6PI WgNVUrYCP2sOV4zH1rwLv nbjogbGVmdDsg vlIsmCojLAokTBqsF880A NFrhHbhOkLecAGnS6eatz XGRM5aBrqtrZT+PHRkIHN 0eWxlPSdwYWRk sC5zHJLaN7o4GdSnTjD5A FhtB0HlqyG8NPQduDAzBN ZgsEGCbP9ecjkxb2hlbxb gIzAwMDAwMDt0 UEi1GTRkaSmhAvBmMUC4W fW1APD8fSEwjF0veVqzyb njuB8sImx+RklOOjwvdGQ +IOUeBAM9rGut LMyrXLXfxS8cMQRxL1q7L qSmBnQ4MHuyB2VinkY3YO CdvYZxOZYrjOWFtH3oqac nr2zihsaqRfQa XAVpULu1IAr1VMIzqWxmA pOtRGJ3AtY2KJI6pINcmG 7pbGngxctahH7nVhu+TVJ OOjwvdGQ+PHRk HBM9zFecIFydFZRpfS3xM GQhH3i0WvFtOuQ6BWjtI1 OdhvL3WNColLOqFSDiaVP FaT1hcjiim3uj mtqtYwDdKLKqXLo9URb3P ZEobTzgTwOcVAU1XmH6DY R6tQKvvE8umUonkksmhF1 wOyc+YBQ3KTD2 HL79RC81J9TaYrgoePUhv +PHRhYmxlIHdpZHRoPS qiPLEsFbTupYteMS6lRp1 yZGVyLWNvbGxh cHN (more content not included)... Normal [facility] QUANTIFERON TB GOLD PLUSon 0 02-27-2023 QuantiFERON Incubation Incubation performed. Normal [facility] Comment on above: Performed By: #### Q NTTB #### [facility] [address] [place] [address] Dr. Shon Barger QuantiFERON-TB Gold Plus Negative Normal Negative [facility] Comment on above: Result Comment: No r esponse to M tuberculosis antigens detected. Infection with M tuberculosis is unlikely, but high risk individuals should be considered for additional testing (ATS/IDSA/CDC Clinical Practice Guidelines, 2017). The reference range is an Antigen minus Nil result of <0.35 IU/mL. Chemiluminescence immunoassay methodology Performed By: #### Q NTTB #### [facility] [address] [place] [address] Dr. Shon Barger HEPATITIS B SURFACE ANTIBODY , QUANTon 02-26-2023 Hepatitis B Surf AB Quant 14.2 mIU/mL Normal Immunity>9.9 [facility] Comment on above: Result Comment: Stat us of Immunity Anti-HBs Level Inconsistent with Immunity 0.0 - 9.9 Consistent with Immunity >9.9 Performed By: #### H EPBSRF #### [facility] [address] [place] [address] Dr. Shon Barger MMR IMMUNITYon 02-26-2023 Mumps Abs, IgG 156.0 AU/mL Normal Immune >10.9 [facility] Comment on above: Result Comment: Nega tive <9.0 Equivocal 9.0 - 10.9 Positive >10.9 A positive result generally indicates past exposure to Mumps virus or previous vaccination. Performed By: #### M MRIMMU #### [facility] [address] [place] [address] Dr. Shon Barger Rubella Antibodies, IgG 1.73 index Normal Immune >0.99 [facility] Comment on above: Result Comment: Non- immune <0.90 Equivocal 0.90 - 0.99 Immune >0.99 Performed By: #### M MRIMMU #### [facility] [address] [place] [address] Dr. Shon Barger Rubeola Ab, IgG 116.0 AU/mL Normal Immune >16.4 [facility] Comment on above: Result Comment: Nega tive <13.5 Equivocal 13.5 - 16.4 Positive >16.4 Presence of antibodies to Rubeola is presumptive evidence of immunity except when acute infection is suspected. Performed By: #### M MRIMMU #### [facility] [address] [place] [address] Dr. Shon Barger VARICELLA IGG ABon Varicella Zoster IgG 1057 index Normal Immune >165 [facility] Comment on above: Result Comment: Nega tive <135 Equivocal 135 - 165 Positive >165 A positive result generally indicates exposure to the pathogen or administration of specific immunoglobulins, but it is not indication of active infection or stage of disease. Performed By: #### V SARAHI #### [facility] [address] [place] [address] Dr. Shon Barger MAGR Intraoperative Recordon 01-03-2023 MAGR Intraoperative Record MAGR Intra-Op Record Summary Primary Physician: Sarabjit Blanco MD Finalized Date/Time: 01/03/23 13:44:55 Pt. Name: JELENA BINTARADHA ManriqueO.B./Sex: 1980 FEMALE Med Rec #: [id number] Physician: Sarabjit Blanco MD Financial #: [id number] Pt. Type: D Room/Bed: / Admit/Disch: 12/29/22 [...] Cox MA Role Performed Surgeon - Primary Cv/Cvn Cv Tsc System Operator Cv/Cvn Cv Tsc System Operator Time In 12/29/22 08:38:00 12/29/22 08:38:00 12/29/22 08:38:00 Time Out 12/29/22 09:05:00 12/29/22 09:05:00 12/29/22 09:05:00 Procedure Radiofrequency Radiofrequency Radiofrequency Ablation(Bilateral) Ablation(Bilateral) Ablation(Bilateral) Last Modified By: Tiffany Tyson RN, Rebecca L RN Votino, Rebecca L RN 12/31/22 09:51:06 12/31/22 09:51:06 12/31/22 09:51:06 Entry 4 Entry 5 Entry 6 Case Attendee Eveline Chen RN, Regina CSFA CST Mitchel, Bradley MD Role Performed Cv/Cvn Cv Tsc System Operator Scrub Personnel Anesthesiologist of Record Time In 12/29/22 08:38:00 12/29/22 08:38:00 12/29/22 08:38:00 Time Out 12/29/22 09:05:00 12/29/22 09:05:00 12/29/22 09:05:00 Procedure Radiofrequency Radiofrequency Radiofrequency Ablation(Bilateral) Ablation(Bilateral) Ablation(Bilateral) Last Modified By: Tiffany Tyson RN, Rebecca L RN Votino, Rebecca L RN 12/31/22 09:51:06 12/31/22 09:51:06 12/31/22 09:51:06 Entry 7 Case Attendee Froy Ramos RT (R) ARRT Role Performed Wreath Maker Time In 12/29/22 08:38:00 Time Out 12/29/22 [...] Agents (Im.270) Povidone-Iodine Prep By Vida Figueroa EARLY MORNING BABYSITTER Prep Area (Im.270) Back lower Prep Area Details Bilateral (more content not included)... [facility] Coding Summaryon 12-30-2022 Coding Summary HTMLBase 64 FwhlipahMYn1vFp+PGhlY WQ+PH2ZWGSvK57gwYWwzV 4LV2eVST8NVDMPHSCCEN5 BWK0qiJO0EXucQ1FfavBk RfzjtSQxRQ49OGg7XHV8l OhlIGfylX7fcDSiC1v4Ej ZvZK07zZ64SHjkDMClGvH 3LjZpbjsgbWFy S4qeLxYvdDWiXgc+PHRhY mxlIHdpZHRoPScxMDAlJy TvsKehPX7qJf3tVPLwPSF vbGxhcHNlOiBj o3ktGTQtUCqyDC7lcYqqQ 8EmvFP0QAIey7k0Zf18oT I+NJWvXAB9cQtrEJwtd87 7AgCnj5lzBLM8 qKDiAOktRTM8V69mh8H9Q GZxYXBkBRF7hOX6jB4qoT qkargoD4OwlQUhClR3PCG 7uZTpeN4pkLsc tbifjQ1aUjp+P77YRZ6ZY EVQIK0FXri3C7HoPbcxzG I+UQ35LKYgQZ97oSWzsPI ca8wxrEz1JdKg TFIuYYA9lIvoIDkny7IlJ GXtA75zjYAia4Q2VTMhiJ qupFPkTsUglMU2qI8uQUk womwzx6ejmfqa Hmtwq9lwjo58gV46N79cB NsfOGYgUPX4UZChIFCryH vwny4idT6fXe1+AQxsg2a ch0vtdLj1HwOh QSNykdXcxKpmDIF6l3ClD k22B7PmrWdmb4PqUfs2zh 29pZKhj8F8wGV2YLmrGUT eaP5jSWwqCrG7 KHWoKnGnxB29uUEaHJcyP s8hlWxlnLjuJD8tVFGhxt jhONJgnL6sTLTzwWRvrPc vLL8cXDNdpucc e178GjVhFPZ0TQGnbYPpY 3CjoM8pCsUyKZWhQHIfJ4 QpwMZbHIqoQ474YUtuLhY 9LWUqpqTcL8Ha GJUshKsyZiO2s4Y1Kk6Qx 1MnjgeqIOH9BFirYTLqUq HeVnCkUhG1I9LnMki3ECK onJjyYI5hS9Fl YYPkropveonqeCW8DOSuZ KZnrZ06kQVlVBqlAf5qg6 E6f671QGBbNRMpkD53Xh3 udDogMTBwdCBU fK6uwbxzt5uxkonvVqLiS LWiGPm5KXr4ECAbbFrzAr ZrCNF2OlU8YII3nJZhvS1 arLxdekcvpH6v Oyc+H64scT7eOEU4UQQ0y ewrUWZnaoDqRO05QH93X3 RyPjwvdGFibGU+PGRpdiB hhGbfVJ8xFsCx r4qia2ToZRprT5FwCYQbL XtsEve1TSLaYAZ2pME0mP 2pCJVrVUsuh2R0lYJ8J2R mnmEebm5vk9ix VZVqVTbhH46wsWPhw9Z1V WHthLY3JEGttUijZqFtzI 93Oyc+ZEHpcHbrw1XkVnq zu7biq7pxuMb5 KuVaNPZilrPikXceNLQ3q 5NdIl15U05fLGcoCYCtIW BiWNVxDDLnyExvuv4afC8 wIi8+PGNvbCB3 sSY5oY8gHULqTcX5JJrvF 854UvIsrVKgUqivv6wvu9 yakJo5MhEmGOOqyoPifIp pAJP4o3HyWa81 B20hOFxpRCTmMFPsJLFlD YDgjYyiss5igG6jGb1+PC 4jd6ooog38oE29mHU+PHR hDSD4fInnGUku XZZeeU5rWIjpOnI1SHVwB cSyuD50lRHiONbxHy3leI bdlGteKC8vOZPqhekqf68 7SjRow7tfVEQl jMClSHppQSO1Z48nx3U7C KHiGAOwJKS3wYS5gZ5eoZ lnbjogbGVmdDsgdmVydGl nFJhrASfnT869 IHRvcDsnPlBhdGllbnQgT mKwIFm9W4NaYwr0FZRnlZ yxRV0juUFvTJjbAs3kmGf npJykOG4zVKGr zhxzc059DqOnf8yqFPCdz SFqTWmmUZE4S76jv3L3PX YhMSHqPSU2oQI7vD6drJj nbjogbGVmdDsg hjKrhRifKQylXRucN013V HRvcDsnPkJpcnRoIERhdG A7EX91ZJ95yJVqk3W0pCT 3G8BpTRSuhicd jhkolXM2RYSaRBJgeC50F g0wsEswIo2aWLMpCSV9GO LetFVwC9LjfF2oBkKlQLE xQKBbY8EsfLVw DLouW878VYklKzF5FQCmb zDuE1YaCKIdjXniOiS2n2 I5Nw6IQ1Q3RU05FL27sMT ez5G0mBL1I4Da RFGsdgeapddpoSP0FLGhF LMmhT21Qs0hrVloMm5fPH QlTJH0HCYlyAYdO4EvvK3 yOiAjMDAwMDAw T4IupTSeNBtaV001AHruW yS0FPLddqOrC4VrMDZblY soEpX3t3D6Yl9UJId5LB0 2EQ31yPSxx9U6 nLQ8Z3PiGYChacfpacarc GD6LIOoKMOdwA11Yz2xcW aqJu5bLDBzPRH6HIMtpVR nC5IndV2xSwWg XSNdCVLtH3HnfULyNItcI 682IIclIdK5AYOdyiHfG4 DhGNMclTrkQrU4i1Z7Hd3 MEOOmUW69JJG0 fCP0NE97JK53L3XlDrlnv GFibGU+PHRhYmxlIHdpZH RoPScxMDAlJyBzdHlsZT0 kOj8sRRCoQDGt dGknpNEhWfGgq5hmAQOsL EwpNN8acWwbT2PveTI1AZ Tru7v8Lb52O76oN5XipRE +QBDjgAQ1zYG2 vQ8wUmFvYpY5JWpeB066L sDbyWMrKzzce5fzn6rwnY p1TuM7CEPvwpMwnKbpOZW 2h0HgCl24Z66a IHdpZHRoPSIxNSUiIHZhb Cphji4lqS0hGl9+PGNvbC L2uHF2sH9wWvExLyU4YSp aT195EbGlaTVq Umtpd2xqi7baiSn6VhWiT SAdyoCzhFsvDCA3u2UyOo 90O9NxyGxex0ShImh3db3 0dZIpz0J7oZA0 O8AiMHFcnubrnJRdqZoxN T1nYXFbcxugNOLqsV1dND AlN6j7KsGzRqM2BMhcP5E qtxT9IZElnOWo OWyjRCU9I84ny4Q7ZAOoW PDvJVN9kTZ9lV9ulRaypz ogbGVmdDsgdmVydGljYWw xZBwuA168DKWu kKpdEHUevZ5rRRQkyTHwq JseMU4rCHBdzrkcYn0XSk RJTiwgRUxJWkFCRVRIIEF OTjwvdGQ+PHRk QBB5vOaiSEioBQUptY6kU RPfD4x7IyYrJsN7ADoyZ3 HySDTofgurGe83eO0aSpB cKgR4ZWrvK4Uo bjT5ATKahKLdMAewABC4G 11oh2Z7AFTwDEQbZTV4cN T5lV4nqHhkvtkehSQaaJl gdmVydGljYWwt OBvvO052WDOjrDdrErW6D xIuMaN9HMA6D0QzEyl7ZR HldMynVE7qxTGcKJroVs4 skOmoiCbfTX3y YUIebvmbUQFwvW4fJVKxd YOocUlqFD2sCDFxpuqkr3 07MxAuJHF1WUMijXCzE5M jrB8jOlNsYBFq WXJgP0EqmWTpNRlpQ988W OrcRqO7MGGxllOtQ8BlDP BfyLqiBtF0k9N7Qw62IuI ZZWFyczwvdGQ+ GSXhDXP9yPmqONsiUDMdq Y6jYTXgK8c4KeJwXyG7OC xsS5DyERGgohpnEj83pE7 mQvNjRaP2EFjn O4HbfdG6VKQmqLNvWZtiU WV9O73bk8W3YHDqJDBfRG G5vXI5hQ5mdSweptmhpAH mdDsgdmVydGlj JDcnLRmbZ818NPIwgMtpS kZFTUFMRTwvdGQ+PHRkIH S1eOveUAseWRBfcC7rYHW sS7m3XnRrSyM2 KMqvH1JsCBXkazphXt21e Y9vCmFuKyS2LNeaU0Pykg P8XXGqjZNcQVbrSPD5E59 hr6C2LLKjIUNr VBJ1eDG6oN3sxSnemothp GVmdDsgdmVydGljYWwtYW acS465JEOxsKgkCdSyeDL OfYJhAFZ9EI82 ZT47U9RrNgmdnMJfoRN+P HRhYmxlIHdpZHRoPScxMD QnAkEktZfbQK6yMu0wLDS yLWNvbGxhcHNl FkCyc5axJMCeHWmvNC5rd PgaD5PhlTP0WGDph8j7Rx 70D75kW8VgeHF+PGNvbCB 5bUD0yR4bBsJm LvK5PWteA130ZdUieGPqC mein9wdx2zwaCx8TfXfJH QxhmFgrVpqURA9z8ZsQh5 7E52tHSztUQUc BOWjSERfHMWvtZckxx0qi G9wIi8+KQKjwQF2pPG1hI 9cLfGlTzC9GStbF669SiT hnVXpLdswR89l L1NftYS+MVPaMij2UZMyb CcaAF4qwCLlABysRz9gBF R1FtWjLaElPDzuG3PaSEC pbmctcmlnaHQ6 LCFoBRBdyI44Nq6qqKvwC o6aISVlIFS8ZPOinILmT1 MgwV1kZnArXOZmCQJwB0P kjEZyBDjiD629 OBxmEvF0SUGhutGzO4LsW RBzqXizSsF5y4Q0Xm3XfI jpmRGfCF2tQlLsDCg1F3O rIxr0WHBjnAgi YC9ezWVpPMrzOz0grTmyj EduYI8jZMJidhnmc343Ty Khw3xhHXOzrQKeBWstJJO 1K66yr6G0ZTSd TEAqVCC4xWP9gE1ndAcoj jogbGVmdDsgdmVydGljYW qoFEizQ275MDImmVizAiV UIky5O3DeFce7 MOFjkNlzUX7cpBWcPXowP a9ftHvthHdsVO2rRUBlhw lgz186LhIpi3gkYAMrmWT vDEswYCH4J58m t9H5ZSIlMLBnUUH4mWX0e I5caLkadavbmPLjaWecpu FovIorEMfsSCsrA985VKO xcZjoPt0HYvd3 W3BbBar8DDFsxLejCJ3im SDzEHzcCi4iaRgeiLylOL 2eWSYcgjdqy241JqNem4a kIDEwcHQgVGlt VVC8B62eh3S8EMHaGDZbP PW4zRG3sM5mjImovsemhO VmdDsgdmVydGljYWwtYWx nQ970WJHfmEon PlBheWVyOjwvdGQ+PC90c l27E3XhBxtqSdi9QJXvFF Z2nUL1fL4qGMSoELpdc4L 8eMQ1A8SvrhAv ci1 (more content not included)... [facility] Consent Formson 12-30-2022 Consent Forms [id number] [facility] Anesthesia Noteon 12-29-2022 [...] Charted Heart Rate Monitored 98 bpm (DEC 29:16) Resp Rate 16 br/min (DEC 29:16) SBP 135 mmHg (DEC 29:16) DBP H 94 mmHg (DEC 29:) Weight 117.10 kg (DEC 29 07:50) Height [...] All Problems Lumbar spondylosis / SNOMED CT 091657906 / Confirmed Anterolisthesis of lumbosacral spine / SNOMED CT 533717037 / Confirmed Histories Family History: No family history items have been selected or recorded. Procedure history: Facet joint nerve block ([id number]) on 12/15/2022 at 42 Years. Comments: 12/15/2022 [...] Oriented. Review / Management Laboratory Results Plan [place] [employer]#( A) physical status classification: Class II. Anesthetic Preoperative Plan Anesthesia: Monitored anesthesia care. Anesthetic plan, risks, benefits, and alternatives discussed with the patient and/or family. Patient verbalized understanding. Informed consent was given. Consent was signed by the patient. [Electronically Signed on: 12/29/2022 08:45 EDT] Jalen Hagan MD [Verified on: 12/29/2022 08:45 EDT] Jalen Hagan MD [facility] Inpatient Patient Summaryon 12-29-2022 [place] [address] Patient Discharge Instructions Name: BINTA GRAVES : 1980 Patient Address: [address] [place] [address] Primary Care Provider: Name: JEROD DELEON After you are discharged if you find you have any questions, please, call [phone] ext [phone] to speak to a nurse. Discharge Diagnosis: Anterolisthesis of lumbosacral spine; Lumbar spondylosis Prescription Information: If you have been given a prescription for narcotics, seek immediate medical attention if you have any difficulty breathing or any sudden status changes such as confusion and sleepiness. If you or anyone you know is experiencing suicidal thoughts, mental health, alcohol and/or drug addiction problems; contact the [facility] 25/04 Crisis Hotline -Text 4HGAT ot 206091. If you received any narcotics, sedation, or [...] business decisions or sign any legal documents [facility] would like to thank you for [...] Control and Prevention June 2014 [facility] Preoperative Recordon 0 12-29-2022 [facility] Preoperative Record [facility] Pre-Op Record Summary Primary Physician: Sarabjit Blanco MD Finalized Date/Time: 12/29/22 09:18:18 Pt. Name: BINTA GRAVES /Sex: 1980 FEMALE Med Rec #: [id number] Physician: Sarabjit Blanco MD Financial #: [id number] Pt. Type: D Room/Bed: / Admit/Disch: 12/29/22 [...] Signed By: Namita Roman RN 12/29/22 09:18 [facility] Operative Report - Surgeon/P reagan 12-29-2022 [...] Patient Handout [facility] Test Urine 1 U Preg Negative [facility] Comment on above: Performed By: #### 3 [id number] ####[facility] (DEFAULT)[address] [place] [address] U Preg Internal Control Pass [facility] Comment on above: Performed By: #### 3 [id number] ####[facility] (DEFAULT)[address] [place] [address] Progress Note - Provideron 0 12-23-2022 Progress Note - Provider [id number] [facility] Progress Note-Physicianon Progress [...] to proceed. Sarabjit Blanco M.D. JOB #: [id number] [Electronically Signed on: 12/27/2022 09:06 EDT] Blanco, Sarabjit MD [Verified on: 12/27/2022 09:06 EDT] Blanco, Sarabjit MD [Transcribed on: 12/23/2022 09:18 EDT] [facility] Coding Summaryon 12-16-2022 Coding Summary HTMLBase 64 WgvjoemkXYy8hSe+PGhlY WQ+LV9LBAZiQ68pwCWsrE 7JG6lOOL7TVVMEUWWOFY9 YBH1nlQX3FObxJ0VfuyFo ZijmoDOjYR13GYv2EKK5t AsjNZelgB4qfKTxA4y0Xz WzBB39xI32QEeoGQAvOmO 3LjZpbjsgbWFy B3nvVbNccOYaAzm+PHRhY mxlIHdpZHRoPScxMDAlJy CmeDcdVU5mVx3mMYKsCAB vbGxhcHNlOiBj a1laMVFjFUdqPU3fnFfoC 5HgwTW3VAZca0g3Kd80pB I+GIBeRHW4yKoyMLuzz98 2WeSmg7rnZRS2 vTYdQYceOGE5N35zv4F5X ASqJMRrCCP0fEH7aG3vwQ nuptykK5SvrDUdExT6FQK 4bQEqmR3kmJru zmpdaC3jDhv+S99JYN6AD SOVZM9KMna8E6IjMuhnyL I+EE05MDKoWP20zEAtdWH si4tjjJh9LqWj KJNsVJI2qGhmBVtov4BtB XNlO61bmDBal8T8KDSfkO mpzCIxQkAjdVK7zS9oFWb krvvbo7lrumdx Csoep2pzrb81bZ34J21uX IduSTBoFKE0NILtPYDbrV fsyt4pkG7aEr9+TEjiy5t wd5uwcLf1PiIy MXTtkqIlfGbkADA6g5LdM c69R2DfcUbsf9NwRpe9zn 80zAVug8C2iTR2TVnmBLI uwA5yIVyxNuD8 LKTlVyJhpR22oRQmGRfoI w0peWjhiNjjWM1vOFZfge lrTDUjoE7qGFEpgVHbsEx aYA6nBTWpakqn y562WoAtNDQ4YTOiiYBrF 3GwhT2qJsKcFEUjATJkL1 UznHZfJKnkC832UKfrVkU 4JEYxueFyA3Qk FKBkvAhcGmF8x7M5Ll0Bp 5MonbtrWMM0IDfgLUTxHi F8LmXsZvS6W2EjKcg3ELQ ynKfkGB6xJ8Io PSIvdgyczjgbeGX1JSLyG SBmeC31pCEeJBehUf1sy7 W6f263SMEvZDSmxG96Ph7 udDogMTBwdCBU sP1ecveak6vhfautJvGnQ FAyGNt5XUv5UTEjfUrmEc WpSJX1PjP7OIB1jOTouO5 siDudsunhwD2l Oyc+S21ztD8lUIE3WKI5y sluJLRwgyRtHK05UE47E9 RyPjwvdGFibGU+PGRpdiB hmCdfOA8jPpUj i9shr5FgKHfxG3VdEYHlG EwaDfh7AWTnUUV0hCM8aE 9yFZZsEIpnt3X2wIB1C3K miiYudg6kr7rv XOVfLSuiI28fhTHtz4Z6F QEqeIQ2OJRlaRylPdLtkM 93Oyc+TYEcaAzii5PcJei ew9ypc2epnAb1 JpToMCVmtcAuxIujCSW5k 5KtBz29X18pMXcqYHYoHB HzAQEnWCAjgIiisx7vnG9 wIi8+PGNvbCB3 bYE1xZ5xLBPqIyD2UYumG 583YvPeoVHcQimow6akc7 ncoDc9PqKeBQCfckZutIq oOJR5d5AbTh93 A39mYBqhTGErROLoAONeS XIxvHfrqa8hhM1fGi4+PC 1wq6kqyo01iT51kVL+PHR aCQD9tCbfTLid FYOluJ0vLJobPpH6AEHwQ vSozI54gOTrFNpyGt7xnH jzbIqoOJ0fZAGoouskz59 1OcJwo1hrRVDv fMXyYYurAIG5U88tc7G8P BHvIXRrGVA2pYS3fR5isM lnbjogbGVmdDsgdmVydGl rROcrLMraY734 IHRvcDsnPlBhdGllbnQgT dYhPNv9W4DvZio7UVRzcT emLS9gsWSnWAcgAp0wfIc pqDdpUS1oPIVo tavax134TkOlo6oaXINrq MIkHIleUHH9Z76ko4O4RO WjGKGlIFJ2wMN3mR4iiUh nbjogbGVmdDsg kiJiyOmqZNbfFGquS891C HRvcDsnPkJpcnRoIERhdG R2ZQ54FN85pJQtg8O9bCF 3J0LzFGNpzave ftvkkGW8HGWpGYSgcF50T j3jdXfkOr0wIDKiKBQ1TP SypWOuB2ZlzV5eJqRjCAR kTZCaG5KlcPCb SOzaG588NHqiLaL5FWWta tPtF0TsQLKifRpzWzY7b6 P0Ix7QT9G4FB23TN73zOR pc1W8cCR1Q2Jh KZBxolegtgmppJR2OMWsU OTudM46Hq8qsEipQh2tCF MrUXI0AKJclUYhN2UmdN7 yOiAjMDAwMDAw C6LsmNMoHMejV361PHkpA rQ9ZDYcpjFrW3OjCPPczS ukHkI2h2Y0Ie4MZYb2JJ0 6CW26pRCvn2A2 tLC6B1UzEDGkqusiyfcfd UD2NLEyPWQdyV62Mv7rtL pyCk5vVOJgJNO6WMXdcHS mP8BulY0nLnLv XBGhKYAxS6LmcHHdWVhkC 894RLxqVzX5VBUllqQhJ9 GaQJLwmPhuZpL9z0W6Fq3 XRKXrNI45KAU0 wJS1XW19ZN37R5CzNcvbh GFibGU+PHRhYmxlIHdpZH RoPScxMDAlJyBzdHlsZT0 fMg0aAHQdUYEr wUsglCXlBuFxg0jkAOQrW DpqSN1giFrdC7PduLW8WA Vjp9i8Cr76P60gH7GuyNH +GOQxgHO2nXC4 zC8aKuLwAiX0ZEbnH887G xPduNAxFzzss8tsv3qccA j3WuL1EUCyshOjlFffRXW 1a8RyWg95Q78q IHdpZHRoPSIxNSUiIHZhb Ygrxz4ujD3hNr8+PGNvbC K1yCE3jV0vUtZpFkY4BZi rI708AxJktBSf Xmpuf5bqp1olmOq8QnJrC VSphqVztDrgLDD0z3IfOi 11W2AfmAeet2ZmQxu0ko0 4lSKlo5O6fJY0 X9CiLYEypoolmDAxjPttM O2mTVMzhljvBGUdvA0sYK XqW5i9JzHxUpU2EBvcU4B oqbX6CMFcrPWy BIqoDQL3B99hw5J0SAJvF IRzRZM6sKQ2yY9gzUgfeo ogbGVmdDsgdmVydGljYWw tMPxzD058JFCu mShiJJQqcO0bBCBhzYLfo TbkCE0eXQHvusffWo5TFl RJTiwgRUxJWkFCRVRIIEF OTjwvdGQ+PHRk SIJ5mRqxSKlbXMFntJ4lH CGqD8m7ZfOaLdL1UWocL5 HgBAHnwbtoRi47iU3hJvT dZoY7LMcfB6Iz geC4XRVujZYzPSqyDJQ9T 87ch8E9EJAkMXBuDXA1lO I9fP0saCfvtxzwmSYsgXt gdmVydGljYWwt PWynS868UOBeaTnpItZ0I zTsYiS8YTO5Y4WuVsc9VB PluXjxRC3jgYWdLSexBa6 umRodtTanZR8g MYVbbqgyISGqtY8vPSPma TFxmUkeCY8kQUWgacgid5 11AtXfUYN9ISTqkFXiD0L npJ4bUsGpEAKh CCKfV7PdfNIaOFabK284J VclXmQ6DYWvlmAhM2SeRZ VifLhjJwS8g4C2Pg25TuF ZZWFyczwvdGQ+ RKTeUWA6hPvnZPmqTJEmc F0oRTRcY4d8YxUpXfC3QC yaL6DhXJPwuqlmLy41yG5 qFuDlHeE5SAsl W9KqbbO8JQYhpSWzMOayU WH1D77nf3G3XRXwJHTyVV W0nAH3gO1rrUtcdutfcNN mdDsgdmVydGlj LXdqZVjxD143YIFhsHziA kZFTUFMRTwvdGQ+PHRkIH R6bFmpHVjtIOEcuQ3rVNN mX1k6PvPuLcG1 SHjqB9QpUOYpmzxnIb91u G1nUuVxRkY3GEgrO8Lcga C5WDBksKNnBSioIDM8I01 tq6Z4DOOeMTVn XEP1xTF8jD2mkKhbfvkub GVmdDsgdmVydGljYWwtYW zmA457ZZJhfIscDmWfmRH LeBRnFDQ0OG68 BU20B3LlQjwlqPPwaJP+P HRhYmxlIHdpZHRoPScxMD MxGgPpdHyuDD3zHh4xBLB yLWNvbGxhcHNl YaCtf1caRMLsNQcdYH4yp EwqM4HfnSL0QFOyl0h6Dt 40I37gX8UtwBZ+PGNvbCB 8dRF7pK6kOeCx RrS6OJfnO044VeRfqWYmB nxfx9zcu8zshIt9ShCkUQ AsojSrqDfjZXB7c8JdCq5 7U80dNEnlFKDz DUNvRFFiQXCfaCamps9uv G9wIi8+UVZkbFO3dLZ6xD 6gJfOwPjM2OWtoZ740CtQ smHPjQnakA47i J8JifCT+KPYiVgy3IBRrc DuuEK5piCVuYAajFl2zSB L9CjRpPaKkNGlgF1TvHVT pbmctcmlnaHQ6 WWGmSUNwnA17Bb0vnMwgV g7gKOKbDOI4CSQmiAMkD0 PejZ9dEwFmJVUbBGVjG4E cbIUyJOgjA998 OKcgKkK1JZPztvDbY4MeD NTgrKjnGsF1w0Z0Ct7BrC wmaKPhUO6bNtUsNVm6E3K wFko0CHTnlBvi HE8ybFUmLAjjAh4lpFvgd SgrRQ3zRZZtllqzr403Dg Rcz3dzIALbtEDgDPuhPYA 4D21nv6Y4LNRl QCQxONQ8hBH0gI9qtUaty jogbGVmdDsgdmVydGljYW fjKYhvK106YHQyhEuzPyZ PAqt4Z3RcHbz7 UEFngIrjRT8fkJPiUHjbD m5niOdizMqsVJ1oEWPxyr lff496PsIyg5brFJOqsNU mEBoxJGE6X81s s0N5YHMuMBAsYKI0zTB8f N2ugYklmupuoVWygCjykq UclTpuFKmsIKjuW096NCZ iiIgyXe7DLam0 K2TtIhf4ACXzeJnhCZ5ww XIaWAtbCk5ufSkymOzjOY 1pLLEwnylip011SjLfw7n kIDEwcHQgVGlt IMW2D82ea2Y1WVByQSJdN DB0lPJ2wR4jbHuddkwboL VmdDsgdmVydGljYWwtYWx qY312MFBnuCmk PlBheWVyOjwvdGQ+PC90c c11V6QsMeppSbk2QBOlSE G4zDG9mR0zZYOqIPwkj9H 3kWM7Z5QfwkKk ci1 (more content not included)... [facility] Consent Formson 12-16-2022 Consent Forms [id number] [facility] Inpatient Patient Summaryon 12-15-2022 [place] [address] Patient Discharge Instructions Name: BINTA GRAVES : 1980 Patient Address: [address] [place] [address] Primary Care Provider: Name: JEROD DELEON After you are discharged if you find you have any questions, please, call [phone] ext [phone] to speak to a nurse. Discharge Diagnosis: Anterolisthesis of lumbosacral spine; Lumbar spondylosis Prescription Information: If you have been given a prescription for narcotics, seek immediate medical attention if you have any difficulty breathing or any sudden status changes such as confusion and sleepiness. If you or anyone you know is experiencing suicidal thoughts, mental health, alcohol and/or drug addiction problems; contact the [facility] 25/04 Crisis Hotline -Text [id number] dd [id number]. If you received any narcotics, sedation, or [...] business decisions or sign any legal documents [facility] would like to thank you for [...] these instructions at home: Medicines ? Take mcex-jnn-odhquue and prescription medicines only as told by [...] your h (more content not included)... [facility] MAGR Intraoperative Recordon 12-15-2022 MAGR Intraoperative Record MAGR Intra-Op Record Summary Primary Physician: Sarabjit Blanco MD Finalized Date/Time: 12/15/22 09:41:51 Pt. Name: BINTA GRAVES/Sex: 1980 FEMALE Med Rec #: [id number] Physician: Sarabjit Blanco MD Financial #: [id number] Pt. Type: D Room/Bed: / Admit/Disch: 12/15/22 [...] Cox MA Role Performed Surgeon - Primary Cv/Cvn Cv Tsc System Operator Cv/Cvn Cv Tsc System Operator Time In 12/15/22 09:17:00 12/15/22 09:17:00 [...] Luke T RT (R) ARRT Role Performed Cv/Cvn Cv Tsc System Operator Scrub Personnel Wreath Maker Time In 12/15/22 09:17:00 12/15/22 09:17:00 12/15/22 [...] Agents (Im.270) Povidone-Iodine Prep By Vida Figueroa EARLY MORNING BABYSITTER Prep Area (Im.270) Back Prep Area Details Bilateral Skin Prep Agent Dry Yes Without Pooling Hair Removal Syntegrity Hair Removal Methods No hair removal performed Outcome Met (O.100) Yes Last Modified By: Carlo DICKEY, Jacqueline Jolley (more content not included)... [facility] MAG[facility] Pre-Op Record Summary Primary Physician: Sarabjit Blanco MD Finalized Date/Time: 12/15/22 09:34:52 Pt. Name: BINTA GRAVES /Sex: 1980 FEMALE Med Rec #: [id number] Physician: Sarabjit Blanco MD Financial #: [id number] Pt. Type: D Room/Bed: / Admit/Disch: 12/15/22 [...] By: Sharon Epstein RN 12/15/22 09:34 Normal [facility] Operative Report - Surgeon/P reagan 12-15-2022 [...] these instructions at home: Medicines ? Take hmfu-xsl-phfuujk and prescription medicines only as told by [...] sugar if you have diabetes. ? Take oyry-csb-pyxhcwp and prescription medicines only as told by [...] provider. Document Revised: 06/11/2020 Document Reviewed: 08/27/2019 [employer] Patient Education ? 2021 [employer]. Normal [facility] Test Urine 1on U Preg Negative [facility] Comment on above: Performed By: #### 3 [id number] ####[facility] (DEFAULT)[address] [place] [address] U Preg Internal Control Pass [facility] Comment on above: Performed By: #### 3 [id number] ####[facility] (DEFAULT)[address] [place] [address] Coding Summaryon 12-06-2022 Coding Summary HTMLBase 64 LhoksvlaSZa3cVl+PGhlY WQ+MW6QOWJfI94xeWHpdE 8IX1iWAU1FMRRXKUIFLN7 EAF7hhHC4DFfnQ8QznkTu ZpxuwUWjAR81IEo9MTX0d RgpAKwnzM3phOOoH4e2Ds YaXG18cY64SBosOTAaBoS 3LjZpbjsgbWFy E9jnZhWbaYQkXrn+PHRhY mxlIHdpZHRoPScxMDAlJy FecSogKE2zMj2iGURiQIN vbGxhcHNlOiBj d3ijGLYuMYiuRF8xzHwsJ 7OicMF3IJYrn7i6Sa43eU I+PKZvZUJ8uMsuTXrqs25 3ZaRuh8ueIDF7 oNElOGgsSXC8O63oc7O9O GMjVXVkAMU1hPH6tY2waG ohqbfoT9BkrOTtXzB8MEB 0dCAohU1wuPuc vjfqwG5yRab+G77AJK1RW CFOSF5CPrv6A5GeGgnvqQ I+RB48KWZrQI48iGGltFI zt8cmaFq2ZiFt GAOxUWQ3hDnxRDvhk6KcY YDfP13jlJHtf1M0PHIwkG jkjSDcUkUmyYB1wX4kYEx hfmypd7tmbfht Rtryp0ixhh89yA39O90lY WdrCCKaTIO3UNFrMLGcyI ooko9ziV4bTu0+QYlac7o dj3jglTa6IkBa NXArhtUltBxcCSZ4s9QcP n18C4AsvWebl6AqUss6nw 00kOBjl6G6yPC0NWcuOWT tkK0oIQosMwT4 REBeYeJdyA40zKSbVSozN e5cwDiglOnrOM0nIDMsyl cyIQCpxI6pSZVemSQmzJt gKA2vXPUoypmq o718JrYoLKG2YSMjjSCpT 2OtxH8rJaMcSYIuKUXkV0 RppDGkYCnxC004ONbeYqW 8FBInurDyY1Kz JDLgwOwtKyN5u4S2Kp7Bl 4JlubsnTLE0SWnsMQFyVa I1ImVlHgG9Z0RwGzb0AEK thJcsSZ9bJ1Sm FXWtpfltmfbzvRP1FERnB OFjjU71zZTlBOkpAp8pz2 G8m684UJNoXXUrrF95Lg1 udDogMTBwdCBU zP6dhzyaf9icabkzFmRhS JLoVEh9XYw3KFTioEeqFc KuHAA7LeC1TOM2tBHihL6 mfAbmkoybjU2f Oyc+A33nhV2tNIX6YLF5u cqkLGGndcOgQN04LK17M4 RyPjwvdGFibGU+PGRpdiB hkKdqOT4bXjRu r6gli2ZwOPqiN7XjIWTwD IzvTuk8ZTGbTNO4aRP0nR 8hRRCfPYblg9L5xHF5Q2W mohLqwa1er4xi SKIeXVisZ52wnJQvu4M1U ESbsJH2TPQzdMshOvCuaO 93Oyc+WHGxsXybh2XpTrh kp7eir0owrAu7 VaLkHBHmreYgmYwmHHB9g 5AiHh57O21fQEztGMHgNM NmCGWdJYYglTnlem8xvX0 wIi8+PGNvbCB3 jFB5xN4tPIVwZkK4LCxeG 741PpFbhDCyNucvz0tbi8 rfuIi2XfBtGCPjhfWnhKx xBUL8t9CyGd78 J80dYXswGVAoNQDmNAMnN QDooBobla8ztV2fXt5+PC 1wt2dpcw52yQ87lIJ+PHR tSSJ8aBmfSBvc HZIgcZ2aBXocUpV0PZNfR xOgdK38kVRiWPgpBb4ifK ypiYtfEX2bKMRofsutz95 7PbNod5jbBZCc bYJqYMzaFZA3F74nl2U7U RSnZPCqKSP0kAQ2pA3mgY lnbjogbGVmdDsgdmVydGl oGUtaHTebL696 IHRvcDsnPlBhdGllbnQgT xQjFBy9B1SvUoj8XDUpcX xhKM1hrARsYFchVn4kaTn wfZmsVV9iKSAi yozfm854TxLut5nbQLItd IYlJTlrGBI2D26oy5Y8UA ImQANnCZD4pFU5eJ7mfGd nbjogbGVmdDsg zkRooHboICfkLIooN681X HRvcDsnPkJpcnRoIERhdG W3BS85OX27kEWwk0G4rPI 6A9InOEBhvubr ehuddGS4GVFpJTGddM24P x0qwHsrEs7wQAQeZBT2IR AenLBnR6HluE0wTgYgQHB kSPJxF7IpqPRt WUvuF987PRyuUaP7MDMmd kFwP2OmWEDpzUhlLmP3m8 S9Ca8BL9L4ZU91XQ78iLN wp6Q9gTA2G1Xt DMNkfrdkidonlRJ7NLAnG FEgmX92Il5yzKjoHr3pIE YlISV6DDMbaKXrQ3WpcX2 yOiAjMDAwMDAw E3DlgABoCFbrH445QTsuQ tO0BPFciwNfY4EuRMVnqD fsOyZ1d0M8Uc2EZKh4OS8 1IQ88hVBmo5Z2 dTJ8X4HdFRLpeyzqgphet JG2UMMtGJGtmG49Sa8wnW qdIz3mYARvMUP1OYIrrDN iJ5IpfG1cQbLe CFCaHSRvI2EfyHKdYBzeB 741CFkcVmC4TXGvmiHdM7 OxXINnyUswWzB4k9G3Xr6 NYUZuBY21THN4 nPI5KW52UC24A5RnWmsoh GFibGU+PHRhYmxlIHdpZH RoPScxMDAlJyBzdHlsZT0 tAv9tLEPzGXSr rGfwbFSbQzTar7kpRVBaV SsbAS0ywDmfF1SvbSN8BF Hlg3d9Hq60J16sF1GuuCS +GZCdkOP4cUK0 lK0oSiHzFhY6ZQeyE700P pJimAJrDkeux3lwb4vljO u5EpP5NNJzwoUraTrtFFU 0a3ApKz85J15d IHdpZHRoPSIxNSUiIHZhb Hunqw1sqQ9eEd0+PGNvbC A8sLQ5uY1zQsFdWoS1NXb tU013GyYnuEHw Txnar3zcy4idxBo9IiOnQ XWejuMvjHbuVMR7i0AzOs 58A7HxoVbil9PeNhz4vk5 9iBWrs6W2eHV1 C8EsUUBndblqrAHqrMawY M1xUUYgpsabQFKyfU9oGE HeW5d6VdHyFlC7YVhbL9L cooG6SQVpxFYu OTajRYX4X46bl8E9ZDTsU STgYXL6ySF5eT3htPkeyl ogbGVmdDsgdmVydGljYWw nKTwmC354RGIv lLhzRJCjpU1xAQLfkHCwa UyiZZ0fQXFeyvvrPg1HCh RJTiwgRUxJWkFCRVRIIEF OTjwvdGQ+PHRk CXE7lNxyGObvJFMdoK3rH JFgQ4v0FoVsYcJ2ATtkJ4 WlXATmzywsXd45iK8kAdX kGkG0QXctM3Mv rsU1LOKepDAqPHfyBQO8A 86gh4H5SBLwDZMhCIY3dH W0oF3huOtpkgikqCHtyIh gdmVydGljYWwt VQkvX049TQOoaGsuCcN3H wDxXiZ4OGC4C2VyFpt5QY FzyHchMD7bcWVhTZrjBc6 kqWbxnWjlKO3x GHAvpvhsAVUtfS6qMGPcp AYvaFjtAA1uYRZxrztmg8 91ZwRoYCN2BXWpoBCqF7K unZ5bPuRgOKEz WHRkW9YsbAKjHNoyE979W JvgVcI2YQBlmmZjI0HcLO PppZmyBlP1s0P4Yw02ApJ ZZWFyczwvdGQ+ NSHgAJY3nKfjSEdiHTDwa O3jAJQuR4a2QmBsHpN0IV ygN7CuRWWlqeuhQf57kV4 eAyTsHbK0YNot M3HoztF8KEKxcDWpCYgeK UF9Z17ks5D7VLAhLDQwJY G2rFK1nY0njNwmctrmiKX mdDsgdmVydGlj XLybNVqxK867DEFzsYzpR kZFTUFMRTwvdGQ+PHRkIH V5dRbjBGlxFNFxfX7bJRG gG2g3KlPfLkS2 KKdjV6PjPWYnwolnTn24e V5lVrWnOlI8WThnP0Uvqh B3PWNdbIPtPXpeMID2R97 cb2U5MHHjAMUf BAV3sNZ8aB4wrZdessdnu GVmdDsgdmVydGljYWwtYW xaT114AFBpuNygDy2OVT5 5NM58Q8TgTdlb dGFibGU+PHRhYmxlIHdpZ HRoPScxMDAlJyBzdHlsZT 2zIa4lRDHlFUTebJjksIV jGmFwk4eeZHOv HVxtIQ6smDcvL9SylZM8E CBfh8w9Uh54U37lU6HuqH A+JYDjeOL2aSA0rS5ePqP rCtW2FOuoX529 NqEmoKSyOwqfk1lic8pbt Tq2EdUyADAtcyZmpCnmJG F4o7ExDu56N55jOUoaINR oPSIyMCUiIHZh rVuqhg1kxC8vGb8+PGNvb SK3eJO3vO3wYuUvTgN3VA vgH614IxKjeDPiHjfxI23 yN0RpeTX+PHRy Qtd4ULJbfGpdMS1jpRYtL ThxGs1jWVW1ZkDyGdJeEJ grM4PiAMYqtxzzvgfmsNP 4LYFhWYGkjB56 Qv0cjUsnNj0sAYQmVUJ6R ZKjvTLyT7GiwP5xIiBbYQ BcVGNwW2HsfSFvNZdiL84 0ZUjmJdM1SREf ujVuZ3YdIKWqmEkkPgW3u 0Z6Cr6CvYmknSVpIC4sQv MxMRz5E6LoDsk8RLXghMo dTY5txZMeFWue Ob1ioMdzbCksEE6xFAVgr ztqc661PqLui7edQZAmvR AoVRaxBGQ0D46kl4C2WSH cDHHwZGK2jSJ7 nA5glVzjgwdavEXepNzzh vJpzDwjFDagURypI181PR VxtOwcOoFYPsv9E8LbRxk 5PWEvrTuhNQ9d oOZnQTyvTg1ofJnldKnaE S1xPLLvjyjwu063UtIse8 bqVMNbmOLhDFdyRSI0M35 cr6B5KGJjACAd SAN1dCM2jS5xbHvbghdrf GVmdDsgdmVydGljYWwtYW qoN850VMXbtJlhQy1PDzl 0D3ItJke1KNHt uHnjSZ1xsJMuBVbxQv1ty DnlwBwkZJ4tZNChaczqr2 35ZoAra9piMAZjpNHqQHl fMLP3B87fu2G1 GROsDHSlIHS6bIT8sG2ya GlnbjogbGVmdDsgdmVydG kfGKjcATyiP192UFLxoHz nPlBheWVyOjwv dGQ+MI15gr39N5EtMyobU sh9JZDwGVB5bCW5fG6wGC VlZKsjf6N3qRS0F4HvycL ogf1gw3agCLAc ZTo (more content not included)... [facility] Progress Note - Provideron 0 12-06-2022 Progress Note - Provider [id number] [facility] Progress Note-Physicianon Progress [...] to proceed. Sarabjit Blanco M.D. JOB #: [id number] [Electronically Signed on: 12/08/2022 10:52 EST] Sarabjit Blanco MD [Verified on: 12/08/2022 10:52 EST] Sarabjit Blanco MD [Transcribed on: 12/03/2022 11:25 EST] [facility] Coding Summaryon 11-22-2022 Coding Summary HTMLBase 64 JyomvqmiKNp4vWy+PGhlY WQ+ZR2RIQVgD47ktZOfwT 4IS6mPUB1GLTOVEHPVOF6 TDB4ggOW7ZPniW0NwzyXs SfhqkTZbXX29TZq8PIL8b HczZQqnzB5mzAYiO0p6Jw AfDY55xZ08ZBsjMRGtOnY 3LjZpbjsgbWFy H5vyCtKikNVlAlj+PHRhY mxlIHdpZHRoPScxMDAlJy VmjPfyPK7oFc2gUBGlSKF vbGxhcHNlOiBj e7zdFJLjLQezBP8cqIcbI 1YtxUC6IZQoa4d1Pa31lV I+VWBvOGL0tPlaUPstv11 3AtUqj2ebRGF9 lZKfVGmqNBF5M62vl0K9A LVhHTOaDAO1hTD0xC1wiD obphvlF6FkfYIcOvS7YBP 5eBUteF3opMzm yltmtJ5wPdk+H19GIG5SJ MGDEH3EPfm2Q3KnPykzrX I+PU79GMGwDD68uRLdqKD gw1qrzDf4ZkPo RYCzHAJ4gYleOZwwv3TfW ISeS98xfNSfo4L8WPJozR ntrQUyNwKieJM9iC1rFSg glkfda3hmxsvb Cfemk5gswx00jI57V83eF PmkLRAeFVP0YRJdXDIkcA yxcu8ruV3gSa8+ZOsjw8t pd5goaMt7ZeWq PZXjmzHlsPbqMZT7y2BoF e31B7NzxLrrj1DoOyt7dl 23tQMil5G4fGQ1GLqfEAS boL8lGKqkCjM9 XVVaTuKxuM21xNGuTHsxP a6duBcuuByjZY5kUEQbpi utAQMgcC4jXLRaySLluBe iXO1cUWBehfqe y995FaWzPIM3PQEgxNZaU 1NdjB6gOvPnKXEeNWLlY6 UnwTPuSCimT636DPnhSgC 0PNLdywJnI4Dz XGVmoPnlSbF2d3F3Wu8Ar 1KsqokvMIR8FGcqVILbFi NhJrPzKvH9Y4RsDjb1VLN toQakJF0iX9Qj KWEytdggeshcwWX1NEUcZ KFuyP99jAOlRTzbCp9oe4 I1z243NOLdNICvcW25Ox8 udDogMTBwdCBU gS6ilogbr1rjvffrFtEdN KNiCYc2FWz7OTYmdXfvVa JkIMB4GqM4UEV6yIKgqD1 bjTbhrmmrwA1h Oyc+E12tsM9mMYO0REK0d ouyFJYuxbScSH82UN25M2 RyPjwvdGFibGU+PGRpdiB rrEiyDO8hJyIb p4xap3LxFIplX6KuIRGiD TcoFzv6BPCoPLI8hYU9qF 2jQXYvRCaye4Y2nVP8C8I tqkQivg7jo1qo UNHoFHnqN59dqBNln2A9O HPwnJC3ZYOfeZhdZbQdyO 93Oyc+FGTcdQoqz8UaDnp ry7zts1vrwIj5 EvIoAEOnstQwcSbsJWF5e 6CiIw39T51hAOdfYZAgUN FqMPEfIPHxsAqjjq1nrK5 wIi8+PGNvbCB3 oXT0pO7zNQHrWuL9DFyaF 733NzTzcQBpCeeel4hcd1 npoRa0QfAeNXIufwQudSg aGNV9w8WrZs52 C27dFHajWZGiBIBkNZBeA LXleBefgc7plH4vCs9+PC 2st0hviu52aF60rVT+PHR uVNI1gOzkEMdj AUSccG1wJHcjIlA1ILTnF bAidN63fOUaZXylEo7vcX uaiDnuUE5rPGYcnrqrx25 9GvUed6pkEJJw xATqRJqiRIH1P59lg8D5V APgIIVyJCV4aLD7gB7zlW lnbjogbGVmdDsgdmVydGl dGAnmADlvB741 IHRvcDsnPlBhdGllbnQgT qPiHIg5R0FvZcv2FNOabB mrCK0slAMvLNkqOc2ueTu ckDasVL4nXVSp qrulm572IkWew2fgRYJdx MZuUNpdNIV5O03bc4C5FH HxIUHqUHS5vQK8kK8etSc nbjogbGVmdDsg ktXooXnsIWvaOJvuA961I HRvcDsnPkJpcnRoIERhdG Z3CR26HA59zZWeo0U5yOQ 5K4SqIZTjffdg mzyfzYB9DMTqHNJivX73M i8pcKmuJw1jUFYsRHF0PB KkvYBjF7KosD1tWeWiHFW zFNQcT4WveRNe TWeeH634ERgtNqQ7MZFcx lVeP9YzCEFpcOnzYnN3g7 E6Mf1ZA5R1FL46JG27yGX yt5Q9sSR8M5Tx QRKikjivuhkyqWY6MBCiT PTveA29Bd9uwKjaHv9oXQ QkOAC8OFVcnFCqK8SckR7 yOiAjMDAwMDAw V4YuoJPdWZieG443QPmcL pY7HKKzkbSrJ2NnIBGbrI ffSdL7u8C2Zq8IZNv2HM8 7CV05bZEdp9H3 mWQ9U9NdVEMageqpeuvyf OA5AVBcBAHnsP75Sj1xgX zoIr0nNYAzKPY9FWAxiAP wF5VivN0lApUl JMYlUMQkB4WywVRxBHygX 396OUhoJkD0FYHzxrFyM0 JjRUPlwBxdUxK1l4P4Te9 JMDAlUE58FQZ7 pTV3WJ10XE83D2YoPqkto GFibGU+PHRhYmxlIHdpZH RoPScxMDAlJyBzdHlsZT0 uJb4eBVZtDYTc uYdrbMOlYvMia7fgZCOkO TedAT5zoYnmC9QdiKU2MI Jjs0z8Nw82I78nE4VglFR +KJIhjRO5lGM3 uT2qUzKhAtP1WZocM200S bTfoBGiExhul6wce1fokO y1NqB5YDEzhuEwhTpbCIE 9h3AtYc26G37c IHdpZHRoPSIxNSUiIHZhb Auppz1bvM0yFs7+PGNvbC D3xRX1gK7xTyLkXaV1AAf bQ799XvLimQFe Nisvg8khw1ukyAy7LeFdD FWgnjJflGnlXNF3k1ItXy 08L1SrzIfvr9PhLgl2ys5 0uKKux3R6qON7 T6LiMGLwmjdttYXbaLzyN U7kBPXtczjwVYKxzF9tDU YeE3n1GhHzZqU8EQftU6Q gspQ0HBXamRSx KXtiARC2V08eo9B3GLZbZ FQsIFY9kRF1tQ8ypChzwn ogbGVmdDsgdmVydGljYWw eRIbxD807EQHt zSxsBELruR3zKHTlhRMlu NpdFT4qPOHezputMy0IIq RJTiwgRUxJWkFCRVRIIEF OTjwvdGQ+PHRk XHU9gKhvHYviIZTjoJ0vN DCvM7q3FrUpBlO8SOohE6 WpSFSwksenLw69eH1gXxM tDlN0ENfmF4Pq mhV6BRSktOEdIYjhUPO7Y 87zh1T7IUQkARLtLSX4mW M0cD4ziOoeivbroBUbqHu gdmVydGljYWwt UWdrN590BYIsqYnkBxK1Y eDzEqY7ZXW2G7NwCvw1SE LijGaqEU3ooCJhVBauOf0 wyBogmCeqES8w KWIaswuoXNLoaJ4tEGHfq ZItoYxaHI2eBVOvpyoyl2 60OrMaQRU1UYSpfVOgR0P nnM4iHtAvDBSj DJAtT4ZfgUKfPUvwR267N UgrAfQ1FSOgcvElR2JtDN HsgSnkRwN1z5B5Zu40ZmF ZZWFyczwvdGQ+ VNScYXG3xTztEMfqOUJik J2eDZWhK2y9NyCqOiR6EN wrJ4NfZFBuukvaIw76bD4 tOuYgYjY3GUof H1XdlaZ1HTNciDQeMGnxJ IT9K70do5F8IFJtBILtFL F3vNA2kX5lxWkvtkyyjDK mdDsgdmVydGlj SKvwFAlkB357ZNKmdHhzF kZFTUFMRTwvdGQ+PHRkIH D0uAqrNSleMZOmoD9jVTE zS3w1IxEkEqX4 MRxgS9RcNJFrdkfyTx06t V6eZyUaAzE2GEixX3Cpcn V7ZVZblEDkKYhqBWM0D82 ns9P2IENdCNDr SHG8iCB7sU9fdAilemibi GVmdDsgdmVydGljYWwtYW pmL879QGDhtBwhSq6GUR7 4TD58I5OhZvyk dGFibGU+PHRhYmxlIHdpZ HRoPScxMDAlJyBzdHlsZT 5wLi6rVDIjLNGomIgqwDJ xNnQeo0bjVBSw OXkkKV7nuQlhF6DhxGB9Q RWjk0w4Nj51B27aO7NcdG A+SMWiyZP1fPT9rQ5vPuD dRiY7XHrgN760 EsMtiHGhWuamw8nxs0oik Jt9SxUxIHWmpsZdlQcxQZ N2f7RuAe16D17fKZgkWBX oPSIyMCUiIHZh yFtoiy0sqK5sTx5+PGNvb DC3dUJ0cB4qMoCsLuR6QC mnH869PnYxxPHzFqttE70 rJ2ApmMT+PHRy Lij2TFHgaXzgWP8hsIKoW FdoLc3aRUP7LwRbWdOfOU ngG3UkLKWapjxshnumoLL 0NSNnSPFdyM48 Qy8pvLmyOj2xCDKsKBU0Y PWtrPDeR2BpeF4xUpRsWG JtIZZeA7QmtHKhVUvnU80 7ZHevSqT0IJFl weIhC1DlZWYtrJknHyN3a 2C1Nn6DgHzdaKRnKZ3aQd GhAFz3X2DjNbw6ROUacHa vLM7nbBViQFgy Pa6wiHvwzYswDX3yZVJuw lmkb791YaMuo7rwBJTdwJ MgZAvpQLE2X32li4O7XBT lJGHiOJE1jQA0 mE4bbJqkrreoiBErwFsan oPcpCkiFFwqMUddC204NY EjyFbmBrGGKdv6T6JjQzc 1JOGrqKjgQY0u lTTwEGpxJk3iiJgdjKueM S9tZQSttqivo526RbUae8 qmRYNfuWVbQSzbUZV7B23 jk6F5EEYoNSVi QLV2gPT4gA4yuYsmrlfyb GVmdDsgdmVydGljYWwtYW koV014QOChaAksEx2HGaj 5P6TxUoi8AMBy pVinAM4prTOoSSrgQa4wn VefjLerPS0cQHTntczcp3 19GbKgd9otALUhmXIyWXn qALL8Z02xa5J6 GLEkAGUlCEY8qSK1gL5iw GlnbjogbGVmdDsgdmVydG mdUSzhIXqsR816AXPghXg nPlBheWVyOjwv dGQ+HA62wp00U5GtHocsJ fh7BUVvECH9hCR2gH2rNZ ZqQMshq3Y2vWS5S8OqrvV wmm2cc4rlPMVj ZTo (more content not included)... [facility]BAR SPINE W WO CONTRA [place] 05-20-2020 MRI LUMBAR SPINE W WO CONTRAST [facility] Department of Radiology [address] [place] [address] Patient Name: BINTA GRAVES : [...] , Ordering Provider - A FREDDIE CLAROS PIPE THREADER , Exam: MRI LUMBAR SPINE W WO [...] reports Electronically signed: Yamileth Barragan. Transcribed by: [email or web address], User Resident: ROSITA NIX Electronically Signed by: YAMILETH BARRAGAN @ 05/27/2020 12:36 PM I personally read this/these film(s) with this resident Normal The [facility] Comment on above: Order Comment: The A ptima SARS-CoV-2 assay is a nucleic acid amplification test intended for the qualitative detection of RNA from SARS-CoV-2 isolated and purified from nasopharyngeal (CORRECTIONAL SERGEANT), nasal and oropharyngeal (OP) swab specimens from patients with signs and symptoms of infection who are suspected of COVID-19. Results are for the identification of SARS-CoV-2 RNA. The SARS-CoV-2 RNA is generally detectable in nasopharyngeal and oropharyngeal swabs during the acute phase of infection. The Aptima SARS-CoV-2 Assay on the [employer] system is intended for use by laboratory personnel specifically instructed and trained in the operation of the [employer] system. The Aptima SARS-CoV-2 assay is [...] Reporton 0 Operative Report MR#: [id number] I [facility] Pt. Name: Binta Graves Room #: 5AB [id number] Discharge 03/09/2020 Date: Birthdate: 1980 OPERATIVE REPORT [...] Traylor MD Date Trans: 03/21/2020 04:34 P/chrissy [id number] cc: Jerod Deleon M.D. [address] [place] [address] [facility] *MRSA/MSSA DNA NASALon 03-07 *MRSA/MSSA DNA NASAL Clinical Report: (D ) Specimen: NASAL SWAB Collected: 03/07/2020 10:30 Status: Final Last Updated: 03/07/2020 16:47 MSSA DNA (Final) Negative MRSA DNA (Final) Negative Normal [facility] Comment on above: Performed By: #### 3 1595 #### [facility] [address] [place] [address], [facility] BASIC METABOLIC PANELon 06-0 Calcium [Mass/Vol] 8.9 mg/dL Normal 8.6-10.3 [facility] Comment on above: Order Comment: No: D o not add to previous draw Performed By: #### 4 1000, [id number], 64943 #### [facility] [address] [place] [address], [place] Chloride [Moles/Vol] 105 mmol/L Normal 98-107 The [facility] Comment on above: Order Comment: No: D o not add to previous draw Performed By: #### 4 1000, , [id number] #### [facility] [address] [place] [address], [place] CO2 [Moles/Vol] 24 mmol/L Normal 21-31 The [facility] Comment on above: Order Comment: No: D o not add to previous draw Performed By: #### 4 1000, , 14012 #### [facility] [address] [place] [address], [place] Creatinine [Mass/Vol] 0.75 mg/dL Normal 0.60-1.20 The [facility] Comment on above: Order Comment: No: D o not add to previous draw Performed By: #### 4 1000, , 86219 #### [facility] [address] [place] [address], [place] GFR/1.73 sq M predicted among blacks MDRD (S/P/Bld) [Vol rate/Area] mL/min/{1.73_m2} Normal >60 The [facility] Comment on above: Order Comment: No: D o not add to previous draw Performed By: #### 4 1000, , 10960 #### [facility] [address] [place] [address], [place] GFR/1.73 sq M predicted among non-blacks MDRD (S/P/Bld) [Vol rate/Area] mL/min/{1.73_m2} Normal >60 The [facility] Comment on above: Order Comment: No: D o not add to previous draw Performed By: #### 4 1000, , 51464 #### [facility] [address] [place] [address], [place] Glucose [Mass/Vol] 92 mg/dL Normal 70-100 The [facility] Comment on above: Order Comment: No: D o not add to previous draw Performed By: #### 4 1000, , 34996 #### [facility] [address] [place] [address], [place] Potassium [Moles/Vol] 3.8 mmol/L Normal 3.5-5.1 The [facility] Comment on above: Order Comment: No: D o not add to previous draw Performed By: #### 4 1000, , 63925 #### [facility] [address] [place] [address], [place] Sodium [Moles/Vol] 136 mmol/L Normal 136-145 [facility] Comment on above: Order Comment: No: D o not add to previous draw Performed By: #### 4 1000, , 91033 #### [facility] [address] [place] [address], [place] Urea nitrogen [Mass/Vol] 20 mg/dL Normal 7-25 The [facility] Comment on above: Order Comment: No: D o not add to previous draw Performed By: #### 4 1000, , 63964 #### [facility] [address] [place] [address], [place] CBC COMPLETE BLOOD COUNTon 0 6- Erythrocyte distribution width (RBC) [Ratio] 13.4 % Normal 11.5-15.0 The [facility] Comment on above: Order Comment: No: D o not add to previous draw Performed By: #### 5 0608 #### [facility] [address] [place] [address], [facility] Hematocrit (Bld) [Volume fraction] 44.1 % Normal 36.0-45.0 The [facility] Comment on above: Order Comment: No: D o not add to previous draw Performed By: #### 5 0608 #### [facility] [address] [place] [address], [facility] Hemoglobin (Bld) [Mass/Vol] 14.4 g/dL Normal 12.0-15.0 The [facility] Comment on above: Order Comment: No: D o not add to previous draw Performed By: #### 5 0608 #### [facility] [address] [place] [address], [facility] MCH (RBC) [Entitic mass] 27.0 pg Normal 27.0-33.0 The [facility] Comment on above: Order Comment: No: D o not add to previous draw Performed By: #### 5 0608 #### [facility] [address] [facility] [place] [address], [facility] MCHC (RBC) [Mass/Vol] 32.7 g/dL Normal 32.0-35.0 The [facility] Comment on above: Order Comment: No: D o not add to previous draw Performed By: #### 5 0608 #### [facility] [address] [place] [address], [facility] MCV (RBC) [Entitic vol] 82.7 fL Normal 82.0-98.0 The [facility] Comment on above: Order Comment: No: D o not add to previous draw Performed By: #### 5 0608 #### [facility] [address] [place] [id number], [facility] Nucleated RBC/100 WBC (Bld) [Ratio] 0 % Normal 0-0 The [facility] Comment on above: Order Comment: No: D o not add to previous draw Performed By: #### 5 0608 #### [facility] [address] [place] [address], [facility] PLAT CNT 194 10*3/uL Normal 150-400 The [facility] Comment on above: Order Comment: No: D o not add to previous draw Performed By: #### 5 0608 #### [place] [address], [facility] RBC (Bld) [#/Vol] 5.33 10*6/uL High 3.80-5.00 The [facility] Comment on above: Order Comment: No: D o not add to previous draw Performed By: #### 5 0608 #### [place] [address], [facility] WBC (Bld) [#/Vol] 8.71 10*3/uL Normal 4.00-10.60 The [facility] Comment on above: Order Comment: No: D o not add to previous draw Performed By: #### 5 0608 #### [address] LUMBAR SPINE 2 OR 3 [facility] LUMBAR SPINE 2 OR 3 [facility] Department of Radiology [address] [place] [id number] Patient Name: BINTA GRAVES : 1980 Sex: F Age: Race: White Pt. Location: [id number] Patient Status: I Ordered Date: 03/07/2020 1:00:00 [...] images. Electronically signed: Moris Vegas. Transcribed by: [id number], User Resident: Electronically Signed by: MORIS VEGAS @ 03/08/2020 08:49 AM Normal The [facility] Comment on above: Order Comment: The A ptima SARS-CoV-2 assay is a nucleic acid amplification test intended for the qualitative detection of RNA from SARS-CoV-2 isolated and purified from nasopharyngeal (CORRECTIONAL SERGEANT), nasal and oropharyngeal (OP) swab specimens from patients with signs and symptoms of infection who are suspected of COVID-19. Results are for the identification of SARS-CoV-2 RNA. The SARS-CoV-2 RNA is generally detectable in nasopharyngeal and oropharyngeal swabs during the acute phase of infection. The Aptima SARS-CoV-2 Assay on the [employer] system is intended for use by laboratory personnel specifically instructed and trained in the operation of the [employer] system. The Aptima SARS-CoV-2 assay is [...] clinical observations, patient history, and epidemiological information. [facility] BLOODon 03-07-2020 Magnesium [Mass/Vol] 1.9 mg/dL Normal 1.9-2.7 The [facility] Comment on above: Order Comment: No: D o not add to previous draw Performed By: #### 4 1000, [id number], [id number] #### [place] [address], [facility] OUTSIDE CONSULT NEUROon OUTSIDE CONSULT NEURO [facility] Department of Radiology [address] [place] [id number] Patient Name: BINTA GRAVES : 1980 Sex: F Age: Race: White Pt. Location: [id number] Patient Status: I Ordered Date: 03/06/2020 7:05:00 PM Completed Date: 03/07/2020 11:41 AM Requesting Provider: DAKOTA TRAYLOR Attending Provider: ARNEL GARSIA Report Copy To: Signs & Symptoms: NEED CONSULT History: Lumbosacral transitional anatomy CT of the L-Spine without contrast done on 03/04/2020 At the [facility] Requesting Dr. Dakota Traylor Comments: Exam: OUTSIDE CONSULT NEURO OUTSIDE CONSULT NEURO 03/07/2020 11:41 AM OUTSIDE STUDY: Lumbar spine CT scan TECHNIQUE: Outside CT images of the lumbosacral spine obtained from the [facility] dated March 04, 2020. Image review [...] interpretation. Electronically signed: Ольга Johnson. Transcribed by: [email or web address], User Resident: Electronically Signed by: ОЛЬГА JOHNSON @ 03/07/2020 01:03 PM Normal [facility] PHOSPHORUS BLOODon 0 Phosphate [Mass/Vol] 3.5 mg/dL Normal 2.5-5.0 [facility] Comment on above: Order Comment: No: D o not add to previous draw Performed By: #### 4 1000, [id number], [id number] #### [facility] [address] [place] [address], [facility] POC GLUCOSE LABon 03-07-2020 Glucose [Mass/Vol] 97 mg/dL Normal 70-100 The [facility] Comment on above: Performed By: #### 8 [id number] #### [facility] [address] [place] [address], [facility] TYPE AND SCREENon 03-07-2020 ABO INTERPRETATION O Normal [facility] Comment on above: Performed By: #### 6 2586 #### [facility] [address] [place] [address], [facility] RH INTERPRETATION Negative Normal [facility] Comment on above: Performed By: #### 6 2586 #### [facility] [address] [place] [address], [facility] *SARS-CoV-2 COVID-19on 03-06 [id number] Not Detected Normal Not Detected The [facility] Comment on above: Order Comment: The A ptima SARS-CoV-2 assay is a nucleic acid amplification test intended for the qualitative detection of RNA from SARS-CoV-2 isolated and purified from nasopharyngeal (CORRECTIONAL SERGEANT), nasal and oropharyngeal (OP) swab specimens from patients with signs and symptoms of infection who are suspected of COVID-19. Results are for the identification of SARS-CoV-2 RNA. The SARS-CoV-2 RNA is generally detectable in nasopharyngeal and oropharyngeal swabs during the acute phase of infection. The Aptima SARS-CoV-2 Assay on the [employer] Fusion system is intended for use by laboratory personnel specifically instructed and trained in the operation of the [employer] Fusion system. The Aptima SARS-CoV-2 assay is [...] information. Performed By: #### 3 [id number] #### [facility] [address] [place] [address], [facility] MRI LUMBAR SPINE WO CONTRAST on 03-06-2020 MRI LUMBAR SPINE WO CONTRAST [facility] Department of Radiology [address] [place] [address] Patient Name: BINTA GRAVES : 1980 Sex: F Age: Race: NA Pt. Location: [id number] Patient Status: I Ordered Date: 03/06/2020 6:40:00 [...] narrowing Electronically signed: Yamileth Barragan. Transcribed by: [email or web address], User Resident: Electronically Signed by: YAMILETH BARRAGAN @ 03/06/2020 07:54 PM Normal [facility] Comment on above: Order Comment: Spina l Stenosis, patient with left s1 radicular type pain - has transitional lumbo-sacral anatomy based on CT scan Encounters Encounter Date Encounter Type Care Provider Facility Start: 06-18-2024 End: 06-18-2024 ambulatory Karina Rodriguez MD [facility] Start: 05-29-2024 End: 05-29-2024 ambulatory JEROD DELEON Not Available Start: 02-23-2024 End: 02-23-2024 ambulatory JEROD DELEON Not Available Start: 02-20-2024 End: 02-20-2024 ambulatory Karina Rodriguez MD Facility:[facility] Start: 02-13-2024 End: 02-13-2024 ambulatory Karina Rodriguez MD Facility:[facility] Start: 02-09-2024 End: 02-10-2024 ambulatory [facility] Start: 02-01-2024 End: 02-02-2024 ambulatory [facility] Start: 01-20-2024 End: 01-20-2024 ambulatory JEROD DELEON Not Available Start: 12-28-2023 End: 12-29-2023 ambulatory DAKOTA TRAYLOR [facility] Start: 12-16-2023 End: 12-16-2023 ambulatory JEROD DELEON Not Available Start: 02-25-2023 End: 02-26-[address] JEROD DELEON Facility: Start: 12-29-2022 End: 12-29-2022 ambulatory [facility] Facility:[facility] Start: 12-22-2022 End: 12-23-2022 ambulatory [facility] Facility:[facility] Start: 12-15-2022 End: 12-15-2022 ambulatory [facility] Facility:[facility] Start: 12-01-2022 End: 12-02-2022 ambulatory [facility] Facility:[facility] Start: 11-19-2022 End: 11-20-2022 ambulatory [facility] Facility:[facility] Start: 12-31-2021 Transcribe Orders Stephanie Grubbs [facility] Phys[facility] Ref[facility] Start: 05-20-2020 End: 05-21-2020 Patient encounter procedure Zayda Freddie Facility:[facility] Start: 03-06-2020 End: 03-09-2020 Evaluation and management of inpatient ARNEL GAVINO Facility:[facility] Procedures Date Procedure Procedure Detail Performing Clinician Start: 03-07-2020 EXCISION OF LUMBOSAC RAL DISC, OPEN APPROACH DAKOTA TRAYLOR Start: 03-07-2020 RELEASE SACRAL NERVE , OPEN APPROACH DAKOTA TRAYLOR Start: 03-07-2020 Antibody screen ARNEL [facility] Comment on above: Performed By: #### 6 2586 #### [address] Plan of Treatment Date Care Activity Detail Author Start: 05-03-2021 Influenza vaccination Influenza Vacc ine (#1) [facility] Start: 2001 Screening for malign ant neoplasm of cervix Pap Smear [facility] Start: 1998 Hepatitis C screening Hepatitis C An tibody [facility] Start: 1998 Tetanus + diphtheria + acellular pertussis vaccine (product) Tdap Booster [facility] Start: 1995 HIV screening [facility] Test [facility] Start: 1985 COVID-19 Vaccine (1) COVID-19 Vaccin e (1) [facility] Payers Date Payer Category Payer Unknown [id number] 2022 Unknown [id number] 2021 Unknown [id number] 1980 Unknown [id number] 2.16.8 40.1.718790.3.579.2.647 1980 Unknown [id number] 2.16.8 40.1.243221.3.579.2.647 1980 Unknown [id number] 2.16.8 40.1.742213.3.579.2.8 1980 Unknown [id number] 2.16.8 40.1.652952.3.579.2.8 1980 Unknown [id number] 2.16.8 40.1.764051.3.579.2. 1980 Unknown [id number] 2.16.8 40.1.183215.3.579.2.8 1980 Unknown [id number] 2.16.8 40.1.888379.3.579.2.8 1980 Unknown [id number] 2.16.84 0.1.029525.3.579.2.1258 1980 Unknown [id number] 2.16.84 0.1.818706.3.579.2.1258 1980 Unknown [id number] 2.16.84 0.1.868781.3.579.2.1258 1980 Unknown [id number] 2.16.84 0.1.139103.3.579.2.1258 1980 Unknown [id number] 2.16. 840.1.546287.3.579.2.196 1980 Unknown [id number] 2.16. 840.1.188465.3.579.2.196 1980 Unknown [id number] 2.16. 840.1.544390.3.579.2.196 1959 Self-pay [id number] Unknown [id number] 2.16.84 0.1.910385.3.579.2.593 Social History Date Type Detail Facility Tobacco smoking stat [facility] Tobacco smoking consumption unknown [facility] Start: 1980 Sex Assigned At Not on file [facility] Medication management note 12-30-2022 Note Date & Type Note Facility 12-30-2022 Note [id number] [facility] Clinical Note 12-29-2022 Note Date & Type Note Facility 12-29-2022 Note [facility] Clinical Discharge Summary PERSON INFORMATION Name BINTA GRAVES Age 42 Years 1980 Sex FEMALE Language Slovak PCP JEROD DELEON Marital Status Med Service Pain Management Surgery Acct# Arrival 12/29/2022 07:38:41 Visit Reason LOW BACK PAIN Acuity LOS 012 22:22 Address: [address] [place] [address] Comment: PROVIDER INFORMATION VITALS INFORMATION Vital Sign [...] spine; Lumbar spondylosis Comment: PHYS DOC NOTES [facility] History and physical note 12-28-2022 Note Date & Type Note Facility 12-28-2022 Note [id number] FF The patient has been examined and the medical record reviewed. The indications for surgery and exam are unchanged. [Electronically Signed on: 12/29/2022 08:15 EDT] Sarabjit Blanco MD [Verified on: 12/29/2022 08:15 EDT] Sarabjit Blanco MD [Transcribed on: 12/28/2022 14:33 EDT] [facility] Medication management note 12-16-2022 Note Date & Type Note Facility 12-16-2022 Note [id number] [facility] Clinical Note 12-15-2022 Note Date & Type Note Facility 12-15-2022 Note [facility] Clinical Discharge Summary PERSON INFORMATION Name BINTA GRAVES Age 42 Years 1980 Sex FEMALE Language Slovak PCP JEROD DELEON Marital Status Med Service Pain Management Surgery Acct# Arrival 12/15/2022 07:50:00 Visit Reason LOW BACK PAIN Acuity LOS 012 00:14 Address: [address] [place] [address] Comment: PROVIDER INFORMATION VITALS INFORMATION Vital Sign [...] spine; Lumbar spondylosis Comment: PHYS DOC NOTES [facility] History and physical note 12-15-2022 Note [...] Anterolisthesis of lumbosacral spine / SNOMED CT 938603088 / Confirmed Lumbar spondylosis / SNOMED CT 474235373 / Confirmed, Active Problems (2) Anterolisthesis of lumbosacral spine Lumbar spondylosis Histories Family History: No family history items have been selected or recorded. Procedure history: Facet joint nerve block ([id number]) on 12/15/2022 at 42 Years. Comments: 12/15/2022 [...] Gastrointestinal: Soft, Non-tender, Non-distended. Integumentary: Warm, Dry, [place]. Neurologic: Alert, Oriented. Psychiatric: Cooperative. Review / Management Results review: Lab results: 12/15/2022 8:04 EDT U Preg Negative . Impression and Plan Lumbar Spondylosis , Procedure explained to patient along with risks of possible complications and patient wishes to proceed. [Electronically Signed on: 12/15/2022 09:04 EDT] Sarabjit Blanco MD [Verified on: 12/15/2022 09:04 EDT] Sarabjit Blanco MD [facility] History and physical note 12-14-2022 Note Date & Type Note Facility 12-14-2022 Note [id number] IFF The patient has been examined and the medical record reviewed. The indications for surgery and exam are unchanged. [Electronically Signed on: 12/15/2022 09:02 EDT] Sarabjit Blanco MD [Verified on: 12/15/2022 09:02 EDT] Sarabjit Blanco MD [Transcribed on: 12/14/2022 13:35 EDT] [facility] Evaluation note Note Date & Type Note [...] Found Hospital Course Note MR#: [id number] I [facility] Pt. 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[facility], presented to the hospital with worsening [...] Internal Medicine Diagnoses Obesity, morbid, BMI 40.0-49.9 ([facility]) Procedures [facility] WEIGHT MANAGEMENT SERVICE REQUEST LVL 3 EST PT, LOW MDM, 20-29 MINUTES Jerod Deleon MD [address] [place] [address] Weight Management [facility] [place] [address] Referral ID Status Reason Start Date Expiration Date V isits Requested Visits Authorized [id number] Authorized 12/31/2021 12/31/2022 10 10 Additional Source Comments INFORMATION SOURCE (unrecogn ized section and content) DATE CREATED AUTHOR 05/28/2020 [facility] DATE CREATED AUTHOR AUTHOR'S ORGANIZ ATION 03/11/2023 [facility] DATE CREATED AUTHOR AUTHOR'S ORGANIZ ATION 03/11/2023 [facility] DATE CREATED AUTHOR AUTHOR'S ORGANIZ ATION 02/11/2024 [facility] DATE CREATED AUTHOR AUTHOR'S ORGANIZ ATION 05/31/2024 [facility] EPIC DATE CREATED AUTHOR AUTHOR'S ORGANIZ ATION 06/24/2024 [facility] FOR RECORDS PERTAINING TO PATIENTS WHO [...] BE BASED ON THE PRIMARY CLINICAL RECORDS. [facility] [employer] [facility]. provides no warranty or guarantee of the accuracy or completeness of information in this document.
[2024-06-25 11:14] VITALS: BP 137/91; PULSE 79; TEMP 36.6; O2SAT 100
[2024-06-25 11:51] VITALS: BP 157/87; BP 164/92; PULSE 80; PULSE 82; O2SAT 92; O2SAT 94
--- NOTE | 2024-06-25 11:57 | W.PM.PROCNOT ---
Date of procedure: 06/25/24 Pre-op diagnosis: Pain due to lumbar stenosis with neurogenic claudication Post-op diagnosis: same as pre-op Procedure: Procedure: Bilateral S1-2 transforaminal epidural steroid injection Medications: Bupivacaine 0.25% 2cc, lidocaine 2% 1cc, kenalog 80mg The patient was seen and examined in the preoperative holding area.? Informed consent was obtained and placed on the chart.? Patient was brought to the medical procedure unit and placed in the prone position where a timeout was completed verifying the correct patient, procedure site, position, and planned special equipment using sterile aseptic technique.? Under direct fluoroscopic visualization a 25-gauge Quincke tipped spinal needle was advanced at level left S1-2 to the designated neural foramen where contrast dye was injected to show adequate spread.? There was no evidence of vascular or adverse uptake.? Epidural spread was appreciated.? The above-mentioned injectate was then placed in a 1.5 mL aliquot preceded by negative aspiration.? The needle was removed. The same procedure, at the same level, was completed on the opposite side. ? Patient was taken to the postprocedural recovery area and monitored for an appropriate length of time before found suitable for discharge in the accompaniment of a responsible adult. Anesthesia: Local Surgeon: Karina Rodriguez Pathology: none sent Condition: stable Disposition: no change
[2024-06-25] MEDS: 0.9 % SODIUM CHLORIDE 10 ML SYRINGE - SALINE FLUSH INJ (11:59)
[2024-06-25] MEDS: TRIAMCINOLONE ACETONIDE 40 MG/ML VIAL 80 MG INJ (12:00)
[2024-06-25] MEDS: LIDOCAINE HCL 2% 400 MG/20 ML MDV 3 ML INJ (12:00)
[2024-06-25] MEDS: IOHEXOL 240 MG/ML - 10 ML VIAL 36 MG INJ (12:00)
[2024-06-25] MEDS: BUPIVACAINE HCL 0.25% PF 25 MG/10 ML VIAL INJ (12:00)
== END 2024-06-25 12:01 | disposition home or self-care (01) ==
LOC: SURGOUT 10:52
PROVIDERS: PCP Family Medicine; Visit Provider Anesthesiology
DX: M48.062 Spinal stenosis, lumbar region with neurogenic claudication (principal)
CPT/HCPCS: 64483; J0665; J3301; Q9966

== ENCOUNTER 2024-07-05 07:42 | Outpatient (OUT) | payer BC, SELFPAY ==
--- OUTSIDE RECORDS SUMMARY | 2024-07-05 07:45 | XMS_ITS | CCD ---
Author Organization [facility] Care Team Providers Care Shaper And Presser Name Role Phone GAVINO, ARNEL Admitting Unavailable GAVINO, ARNEL Attending Unavailable MEENAKSHI SAMMI A Referring Unavailable NADERER, JEROD Primary Care Unavailable [place] Procedure Practitioner Unavailab le UNKNOWN, PROVIDER Surgeon Unavailable Ovtriston, Zayda Admitting Unavailable Ovitt Zayda Attending Unavailable NADERER, JEROD Referring Unavailable [...] DAKOTA Referring Unavailable TRAYLOR, DAKOTA Referring Unavailable TRYALOR, DAKOTA Attending Unavailable NADERER, JEROD Attending Unavailable NADERER, JEROD Attending Unavailable NADERER, JEROD Attending Unavailable NADERER, JEROD Attending Unavailable Giedraitis , Andrius Vytminor Attending Unavailable Gieditis , Andrius Vytautas Attending Unavailable Gijannetteitis , Andrius Vytautas Attending Unavailable Gieditis , Andrius Vytautas Attending Unavailable Allergies Allergy Classification Reported Allergen(s) Allergy Type Date of Onset Reaction(s) Facility (1 source) No Known Medication Allergies; Translations: [No Known Medication Allergies] Propensity to adverse reactions to drug (disorder) [facility] Repository (1 source) ALLERGIES NOT ON FILE; Translations: [ALLERGIES NOT ON FILE] Propensity to adverse reactions (disorder) [facility] Repository Problems Problem Classification Problem Date Documented [...] Range Facility Orders Onlyon 01-18-2024 Orders Only [id number] Binta Graves 1980 F Date Provider Department Center 01/18/2024 ZAYDA MARTINS ONC DCC No family history on file Normal [facility] Coding Summaryon 03-03-2023 Coding Summary HTMLBase 64 ZxzmkypoUVh5rKu+PGhlY WQ+WG0GFCYmR64siQCesI 4rR9XEZWaIZiptRBQIETu SCcMllnXmTT3beUUyTCYb IC8+JE1jEQDyGqlkiITeo 2W2yQN2N66zlg0rYTjfxT O3KVDqAcJfxtbvx8ooqGr 6IDcuNmluOyBt ZEZumU12EGY8iO52Qz64z VTabESvq6esqXo4EqAuMZ YoFWD6fMzcKYkgz0XiUHU fU90avOUjs9O3 RMYzeNrsnABwYyMhpNB9m N3hADusqxinl7znevycDl k8td30fYSkg9Z8jNE4F2K olsM9MJVbgFQx AlgkhGYKzM6etxssj8sff karKcMsZLVqUOd6RRc3SD UkcIchQqXgMQ28BOC0DWV gzhQgV8YnOXHz gJpwXgE7h5N8Zu8BP0IYB fyuS6XEZJKCEOyilJQ+PC 40uk58U8PkZlviAgy3JYW nJBS2mFC3gN9b ZFUbSWewx7K7lZM7Q8Gqm kFpbl9hw3eqULCsHBjaZ3 8isWAjj3B2IGCbzSB2DZH peOxqYmMmeO20 Oyc+LWWlcDpbe2GtCwzxr 8hjz3ocsIr8XuqmRSSfjr QaeVhpDKN4k6CbDt8bXHB aoBM7rPO8jI4q NtIvFlP9HIxjP666WmZth JKrLffsV17gA6VetTD+PH GbVuw8DLJepFfkHE2yO2V hZGRpbmctbGVm fGwzUC7iOMAiuyjaIZNrx V9fWLFrO9v6XfQcUfV8JH maP9UuKLVoyscdXa56pZ2 zJwIuCaL8RKkn G7ExscJ6OPAvwEFkGXupU VU1Q55cp8J3MXNxASOxGU H0iCC9zU8yeLpcvhrrfNJ mdDsgdmVydGlj EDtsPZwkN353FICltKokA kNvZGluZyBEYXRlOiAgMD YvMDEvMjAyMzwvdGQ+PHR eIBN1mZlnKGSq nMZuWHvmHs8lyBtjxStpL T5tEBFcgiziRDXgpZ1iBY GnhFLarHaqYZ1uBLXuqmf nv271OxGzTTF1 AATljLEuY8NhkO2dFeXxE NRnQGPqN7AudPAnIKqxN2 57UFpjJpM9VHUctiYuT0D sLWFsaWduOiB0 p5U7Ii3Xg8XwhuavL6Icy JFpEjLsAexyREx1D7YhDq wvdHI+KS78GRVfXB42NRf 6PVE3qSzoSNrl XORlW3LweH1uEjCjQEMkP GRkOyc+PHRhYmxlIHdpZH RoPScxMDAlJyBzdHlsZT0 rHa5oMGYqZIYb vVuqdBKaTgLmo2ldYLZlR EnbXC7siCpiQ6ZiaYA7SW Ajj3c2Og64V59rK4WmuQR +EBKlzMH2oWK7 fM3mKlIhQaQ0IWusW371J eBwvXJrNgbqy7poz5lbvP e5BeW4CDCptoMcqQkwONW 2f2WkAn22N40r IHdpZHRoPSIxNSUiIHZhb Zhvbf8pxD4pIk1+PGNvbC R7fVZ1zK6uSaLpEmN9RVe zO708OtMgcKDb Tmzit4exb4zxlZr5ClMqS VIptaEvtVelSCE5n7BvNf 10M1DnbOqzp5EyYvq7gb7 7lEVhl4T5tTR6 O7UkLMSdoolxyUXvxFtrM I5kUGMeueuuVTYgtU0nHV GxH4x4EbMzToN9LHglH0Z xnmI8KAIfeNZu CBWugOMPyQ8qvbfgv1crt vyxYzHwOZZjJTl9LHb2HP MqgFimGyMmSQA3ZdS9MML 8yWCxkF5giSam ivkjnS2zJtj+GWW6bBTdh UXRFU2sEdfvsWN+PHRkIH D5hOgnQAjiSNZvlD8xTBL uF4s5NfRqZbN7 XJkuH1CotkK1ADCjkKKlP XQnxDBWwG3qayjta1urtx oePlKgKGOrQNg4DSd0OSD saWduOiBsZWZ0 LpG7CGY1ySUixU6udDqmz srmaD1vJqd+QmlydGggRG X6ARi1M3DhNfn0GEJvqSk eEF4mlGOlQXzd Ss9xbFrngRmgNL4ePQGpm nkyy304AkOug7jeRINexC UjFImnXSW4W78tj3L9RNB uRJMjHXN2sRP7 aU1pnKgqpiowhSWrtTaum cSdwThlJYzfMMifS085OM SixFhjIbPcCXz4I4DgCxi 5LCPjrMwjDK9g nUDvYWqtCf7xoUopuPpaT J5aJWBugaqcc796ZhOsq2 pfFWFihFJeSSqhAFJ7Y59 ic5Q0KTClZICh OHN1sYX3fL6blEoxxoyub GVmdDsgdmVydGljYWwtYW jsM077JAAnrDbkNkAfnZv 2B3RjWgf1BNMp qUbhDP8siGTtCJmuMx9ov RsysPyuEK1eLXFhkzsiu0 12GjHyh1fbLJJrsMHtQJm sDOP7B49vu0B8 ZYYgRNBlGAU4pVQ7eL5mo GlnbjogbGVmdDsgdmVydG oeFRofDRmiI692YLQtpMa nPlBhdGllbnQg KPuwGXm9T2GmIyicnTM+P S90PIJpET97bWIbyWHfy4 rlnDs6AgAdUTTwIFE0jBd kLGulr5PuXHQr Q14ifBRwk1P4HXQddOckl PFeCpDmgXH7mN6lWIomau zmv2gkfedjJrbnj5jigz3 4rM64D66fEHkj ZHRoPSIzMCUiIHZhbGlnb b5xtX2cIp4+EKGvqHR8nM O6cM6kBLUkJlH5OKhqU66 9InRvcCIvPjxj o1yvk4pveWi7WcC5KREoh mZaiUmaBTG6k4PrSb08N9 9sIHdpZHRoPSIyMCUiIHZ oiQgxwz8sbJ0m Ii8+UFBzrMW8fMG0aP0qG xBqLdM3TWfzT299IwWjlP OgBpuxX09tP3NxgEB+PHR sSpm3UUUgjEhu LX7chSDpIXlsFi6mQSA0L yCiPmKeBXxpD6PmYMHtno ngovmbyIP7FOSoPOXkdD2 3Xe3qsLysKICt eHEXxK5lxsmfz9cdcvbcJ nJqYWXlZIh2TGu5LKUyhQ ppZtXgUDF8HoF1GYU3jDT ayR9ywNmfzaeb lQ4jB4TeXIMouktqRa02b J5jMzRlKpT0TStzAsi+TU FSVElOLCBFTElaQUJFVEg wUN6ABV80VU49 pOIqj5F6rLM4A0QhOXEfd jyzdaavpQU5ISZaWFPzjQ 45zSDdEDmlXz6nv6R8y45 5GVDrXLCiwW33 Le9ygBldGJTnhJAIrP8fk yuqg8pfrgncTzJzODSxOV q7AXn7NJDtuPqvWbKgUTD 7QhO2QPQ7eEMe zP3omKktlvdevF6eUpl+M QjrPVNtSRb8MTowhBF+PH YxZOQ1dYhmZWtdNLUiwV0 lAOJvF9d5IhAr QlX9KGtxG3IuOOPizomqZ q73zX6cLjDwXhR1RCilQ9 XjvaD4TGVkpTDhKDwfRSR 9J26qa7X4IUOf EVXfLYE0wXX4hI0szWsls jogbGVmdDsgdmVydGljYW mdDIohL208XGQfwWjuQfX oQZveSNEcPD13 KJ27rQPcl8S7hBY2N7YhD ZQxeipylcdqkVC7ZGRoBW TjxR82wMRnAAvzWa6li1U 5k876KGUwLZFp fQ77Ph9euXofAJLemVJNr E7dxlqqt8ytrgdvQlLdOD DqFCh3DFr6FCYidElfChY yKIY1KvS6SCY9 iBKvaY3piYaveexqcQ3aM yc+YqEGCSrHNI97EV08jV Zsj9T5rMO6V4XfBIFolso rxqiytBK5APLh WTQqgK86dIOcSLvrZu1ci 3B5o946SJEjIUGsaS88Kq 9dyXcyQLSguKPPeA7pmrt yb6dbjfstNjKb ODFjQNc2KWg2ZYCggKbkO yNjOXJ8GzP4ERN7jRHwkP 2sgBelypudnA5dTjb+T1A 5B9CoOntbtQP+ VM33HPPwGX46zRLjgFVhg 5hmsCw3TuEqABGxUUW4kC pdAQchf8XjGJMtB78edDX gb3W8VALpwPhr gLZaCzTagSS7vN4iFAkoj rsre9cfdfvjBqbeq4wovc 06cV80K26kGQnoPVKkELT zMCUiIHZhbGln xo6okZ1lYy7+AYCovKD7v MW0mM3kYuZvTaE9PSwkS0 48KyGbfMMcRymbv5vwy4h djUo7XsYwKJFg nqDaaOvaXKK1i6GpDs64N 29sIHdpZHRoPSIyMCUiIH VzmOhltb5tjJ1vJx1+PC9 km4thon68vK32 dHI+UCYmMXP4uUyjELeaO VZwkZ2uYXbsCbA5JSGoCc LqcC17mKHbUHqtSi7shDk hoNdqTH7zCNVe nbuqd405MxVcd3ryZVEal ZYvNUgwGPY9O48ae1T6IN SrXDNfCCO2hPA2mD6fnPv nbjogbGVmdDsg kyIhpLcrFQcjLOrkY715Z RLxaSfrRoZkjQYaW7lrfr UFRZ3mIlxzpDA+PHRkIHN 0eWxlPSdwYWRk iK2lZHYmU6u9AsOdDnE7T YcoO1CcbaX1SHZraICoBS QavOAYwZ0qwvywc9fkptb gIzAwMDAwMDt0 FAp4FJMjlVvkKuWqARS1D tX9JQC5cWZklY7xcWhwzi vzyL1dWxo+RklOOjwvdGQ +BKCjJMZ8tGsc EEhjMHDgoV5wMIYnW3n4C jSnBoZ6CKnqU7RcqkT3LP OuzPKnPQFoqHGGkM6nvxf mn6pgbcbfEeIp SXJfWQr0MHi3ZLKsgVdxR sJuICM7HdR0PEP9iZGstD 8xzHkuqefgsK8oFls+TVJ OOjwvdGQ+PHRk NPM8gUspBLcsUPMfwQ9jD IBuA6p9MiYzWyT1TZzdI2 QdibW2RCCucVCrYHFseKD KzX5pmffud7sc avgtAgCkNFRfYTx8UTr3L GMwbFpbWhAmJVR6FrN5EL X7uIUafF7ieJxrbhkyhN2 wOyc+IKQ0ZVU8 PM47KR86U4ZiPoxzrESxm +PHRhYmxlIHdpZHRoPS isROCbNeYkmGgnOU2iPm4 yZGVyLWNvbGxh cHN (more content not included)... Normal [facility] QUANTIFERON TB GOLD PLUSon 0 02-27-2023 QuantiFERON Incubation Incubation performed. Normal [facility] Comment on above: Performed By: #### Q NTTB #### [facility] [address] [place] [address] [id number] [address] Shon Barger QuantiFERON-TB Gold Plus Negative Normal Negative [facility] Comment on above: Result Comment: No r esponse to M tuberculosis antigens detected. Infection with M tuberculosis is unlikely, but high risk individuals should be considered for additional testing (ATS/IDSA/CDC Clinical Practice Guidelines, 2017). The reference range is an Antigen minus Nil result of <0.35 IU/mL. Chemiluminescence immunoassay methodology Performed By: #### Q NTTB #### [facility] [address] [place] [address] Dr. Shon Barger HEPATITIS B SURFACE ANTIBODY , QUANTon 02-26-2023 Hepatitis B Surf AB Quant 14.2 mIU/mL Normal Immunity>9.9 [facility] Comment on above: Result Comment: Stat us of Immunity Anti-HBs Level Inconsistent with Immunity 0.0 - 9.9 Consistent with Immunity >9.9 Performed By: #### H EPBSRF #### [facility] [address] [place] [address] Dr. Shon Barger MMR IMMUNITYon 02-26-2023 Mumps Abs, IgG 156.0 AU/mL Normal Immune >10.9 [facility] Comment on above: Result Comment: Nega tive <9.0 Equivocal 9.0 - 10.9 Positive >10.9 A positive result generally indicates past exposure to Mumps virus or previous vaccination. Performed By: #### M MRIMMU #### [facility] [address] [place] [address] Dr. Shon Barger Rubella Antibodies, IgG 1.73 index Normal Immune >0.99 [facility] Comment on above: Result Comment: Non- immune <0.90 Equivocal 0.90 - 0.99 Immune >0.99 Performed By: #### M MRIMMU #### [facility] [address] [place] [address] Dr. Shon Barger Rubeola Ab, IgG 116.0 AU/mL Normal Immune >16.4 [facility] Comment on above: Result Comment: Nega tive <13.5 Equivocal 13.5 - 16.4 Positive >16.4 Presence of antibodies to Rubeola is presumptive evidence of immunity except when acute infection is suspected. Performed By: #### M MRIMMU #### [facility] [address] [place] [address] Dr. Shon Barger VARICELLA IGG ABon Varicella Zoster IgG 1057 index Normal Immune >165 [facility] Comment on above: Result Comment: Nega tive <135 Equivocal 135 - 165 Positive >165 A positive result generally indicates exposure to the pathogen or administration of specific immunoglobulins, but it is not indication of active infection or stage of disease. Performed By: #### V SARAHI #### [facility] [address] [place] [address] Dr. Shon Barger MAGR Intraoperative Recordon 01-03-2023 MAGR Intraoperative Record MAGR Intra-Op Record Summary Primary Physician: Sarabjit Blanco MD Finalized Date/Time: 01/03/23 13:44:55 Pt. Name: JELENA BINTA KATIANA ManriqueO.B./Sex: 1980 FEMALE Med Rec #: [id number] Physician: Sarabjit Blanco MD Financial #: [id number] Pt. Type: D Room/Bed: / Admit/Disch: 12/29/22 [...] Cox MA Role Performed Surgeon - Primary Campaign Developer Campaign Developer Time In 12/29/22 08:38:00 12/29/22 08:38:00 12/29/22 08:38:00 Time Out 12/29/22 09:05:00 12/29/22 09:05:00 12/29/22 09:05:00 Procedure Radiofrequency Radiofrequency Radiofrequency Ablation(Bilateral) Ablation(Bilateral) Ablation(Bilateral) Last Modified By: Tiffany Tyson RN, Rebecca L RN Votino, Rebecca L RN 12/31/22 09:51:06 12/31/22 09:51:06 12/31/22 09:51:06 Entry 4 Entry 5 Entry 6 Case Attendee Eveline Chen RN, Regina CSFA CST Mitchel, Bradley MD Role Performed Campaign Developer Scrub Personnel Anesthesiologist of Record Time In 12/29/22 08:38:00 12/29/22 08:38:00 12/29/22 08:38:00 Time Out 12/29/22 09:05:00 12/29/22 09:05:00 12/29/22 09:05:00 Procedure Radiofrequency Radiofrequency Radiofrequency Ablation(Bilateral) Ablation(Bilateral) Ablation(Bilateral) Last Modified By: Tiffany Tyson RN, Rebecca L RN Votino, Rebecca L RN 12/31/22 09:51:06 12/31/22 09:51:06 12/31/22 09:51:06 Entry 7 Case Attendee Froy Ramos RT (R) ARRT Role Performed Ferris Wheel Operator Time In 12/29/22 08:38:00 Time Out 12/29/22 [...] Agents (Im.270) Povidone-Iodine Prep By Vida Figueroa STARCH AND PROSIZE MIXER Prep Area (Im.270) Back lower Prep Area Details Bilateral (more content not included)... [facility] Coding Summaryon 12-30-2022 Coding Summary HTMLBase 64 OolerzdiVUb7dTp+PGhlY WQ+GO5HZETqQ76ddSRisN 4NB0cCSK9MOYAVVANGMV6 ABE0crZO6MTvgX9WynpJw CbwesSHgOE52DYo0XZV5i MxaLRsqvD3rtHZrE3c4Vb NuCH73xT03RZgyNTPgZoV 3LjZpbjsgbWFy B2ztTaYmrJQmVka+PHRhY mxlIHdpZHRoPScxMDAlJy OfwFdtRV1dKq7lTPGlHFN vbGxhcHNlOiBj p5adXPHbTPgqCG9cfVboW 4OsnBL1AFQvm6x0Hc96tI I+TJKcDIO1mGbvSVzkv95 6YtQto7kxXCW7 hYAqSLqwIGF0Q96km6E1U CZtPNAlIXI1uMG2vI8nvL feyatjJ8DsfJXmTnF8UNL 9wWYqfQ5vcRvj vvgnhD5xZuj+U28FVC5VN JTQMT0MIxi1D1PwWtnawL I+PT59XNUwXH59aRBzsIK ed2wfmRj1FsUe EYGlVFW9rRijBMdnf3MvF FPgK05kzAIwh4C2DSRjcY mavRAsYpBztXI9qM6tPBg spkrla4fkflqt Kigit3wixh07fD06O43xE FotHBEqRAM4XNLjFZMchJ nnyc6qvF7rLf4+OMzrj2u zb5apgPc8KnVf ZQFevuAoiFbbGQC6q2SiV x74L2HdnLwsx9QvLew4da 43rXEzl4E6hXX1JBiiWKU ibJ3iKFplMgR7 BDAePuRkhU90jPStAKfiR b9avOawlGbwST3cQWBoup pzSIAvsN9gZHGqxCWyfMv vFK7dAOAcjcoe a923XbOhOMJ7AKGvhBOvA 8TslC3bGhOxSZVoXRVuS6 IloEIqNTghI357ZSyuAlZ 8MZVvpzNyA1Gv TMJgeIyqAmK2o9G9Ui0Xj 7TjkcpmLNP3AKddFTFtMn EyKxKdPmI8R1LpJhy8ZXL dgAhvUS1sN6Sa ROJybmwnplyudLH3SBDzH GXjeY96tPHtRQnmDt4km2 Q3t668QGStUMJdcP35Qm9 udDogMTBwdCBU eG5flfygx0evumonZiRcG CZeEHw7RHb8GSRwkEulKq QqXVO6DoA7MZC6eCZudU7 zvKeqmdozmI7s Oyc+Y73ogE9jQFU9MMY2k qgmPCGpwbKkHY82QQ26Z1 RyPjwvdGFibGU+PGRpdiB uzVclPR0wCcEo t2vwh2ZmLRmgZ6DiNVJxV QpjOuq2RRFpSJA4cWR2xI 0cLQNmOAuwz4T0gDO7X2X ocdLaob2ud9iq HPKgLIbrZ36pjFPsl3P4A FNwsQU5KKMudKibWjZdwA 93Oyc+NNSdgBzfl7PnEzb bv2qke9zmcDb2 KrShKWNpowWdwMvnAZI3z 8ZvEk49Y76sSEqlNIClYV CzLIYyQKKreKtpyw0blU6 wIi8+PGNvbCB3 yBW1qM3hVURiVqS9VPepL 819SgKtnSVdSodls8coi8 dyeMf7ScJsJFNenhMylUg bWMR6x6EvMz11 V06oOUyyASLfXZWdZHTmJ RQpsBjbvx6xoB4eVg3+PC 7it5ptic45uK44qXU+PHR vDKQ6uTspEEdp AMPvmH2lDJjpCwB3AUWzD nKqlJ89lGEgVUipWp2tqF mbmGrrMB7pSKEbxpjvk65 9HaYgg8veHVUv dQCtSXqrUTH1G94zc2H2C KHoFLIaOWW9xRJ5gY2aqC lnbjogbGVmdDsgdmVydGl lEPzpVUpyF376 IHRvcDsnPlBhdGllbnQgT uHaWTb0W7IgTsm8JYLkcW ohQH4taEWsELoyCm7rcWr qtDjzNT1fVWFd sssxg652YwVnr3laLLPyx QUpQJixYHR0C94zk4V7OD ZwQHWzEUY0zME6oG9wiLa nbjogbGVmdDsg fqAfoKopZQobMAfbN934J HRvcDsnPkJpcnRoIERhdG F1IP21IS64uQHus1K5gYJ 3L8WrEQYrrwnh gjfmuBT5XRZxZKXkqZ83H m6rmZzsHw0sQXDgZQJ8SX ZvwJEaB0QtlF6dPhLfGUA aHCEoB9SzlFEu MMhuJ257YQqdNsY9QTGzn pZmV2VzNCHqlJfuYzD9u7 A9Wt8QA5R0AO70EO51fFK jn4L3gYT3U4Zk SMLkgamkjhdmvMQ6AKVdO NPtnG40Nw7tzAcmIb3eMS SaLUU1ATThnPXhO5NzvX5 yOiAjMDAwMDAw S7YanCOiTEekO765KZqgR dT1KYNvkqNhR2HrDMLxjV vcEuB2j5N3Wf1SVUy0EB5 1SB33bRIdc0C3 vZK8C2RyWNRbocvyjghpz OI3ZXRkHMVvxR13Dg7zuV fqKn7gAANhBNU0JICasFB oU4IsqW9mFtJs BZVfOAFkX0TfgJJoUQspC 418MWgoUxK3PJTzvsRrF9 ItDPDzlRopEdW4g2M5Ux6 URVBdRC46TMA1 jKI4MD86BE97S9DpBzyji GFibGU+PHRhYmxlIHdpZH RoPScxMDAlJyBzdHlsZT0 wTn2xEPSjAHFs fMjvpPLzWvTma6yyJJReF KzpVH1rdIfaF7WfbII3PF Qto1j6Ee57U32qU3SpdAF +WCZogGE5eDO1 qI2wPsSkIvN4SDpeW307O nIswYLcOqcri3zlx6onmN u9MiY7HYIsaiLvqGnuQCM 3t1LkDq78X37d IHdpZHRoPSIxNSUiIHZhb Nzars1xcM5hFa8+PGNvbC M9cGU9rR8bYcUqTdH2YJz uE022GbLboUWb Lbwtu9wju7thpPd3HiGnT GFifzJxhJbjPOR5g1NfXe 34V9AxaRcfj9ZpHke3vc2 1lCYze5F3zJC4 Y4VbCNMudgkckGFgoFtrR E1aIWOovffoMWQwrX9bHQ XiW2z5GqOgVeK3MAzoY0I psdY1CSJemQHp GLwnFAK3C64kd7W7QJRcO SYiWGY8sUS2wI6lrDppou ogbGVmdDsgdmVydGljYWw tPPvfM551OMXd bWdiOASkfW3fPDVbwTGsp BlyXI3jVMSzkvvwFs5TDr RJTiwgRUxJWkFCRVRIIEF OTjwvdGQ+PHRk HYV6cGsxYIzdKXOzfK6dY PZxC9m0GqWuFiX2RKocO6 UsWNAvktjdQa58pZ2oZxM gAaV2LEfcA5Vg dbQ6PAKnjJKoFZlbYMU4N 88wr8I0YOLtEKIwDFD7lL X2eT9yoReumzlonHUddXt gdmVydGljYWwt DFlmJ517ESKgrDqpTuN3P oPrHfW5TGT5O2JlXwe7NB HqkBawAQ3dpBEaMWldGz3 ezMigkIuvYD5k ISNfasdpODJyqY6qFCVqj LXapQnbSV0yZJMvcdzbn1 62JjZpXAD3AFEffYRcE1B koD5dPgGiAYNo XMEiA9DlhDAxAJtaH230T BduGxF9LFJhqsOnE7OrWN UvsApuSzO1r5K4Wy93AyT ZZWFyczwvdGQ+ STZvEOM6iJboBFmrOLOkn M4nXRNdY4o8JzByAyO6BY cuO2XmZPZnequyUi48uV8 bAlNbHfG4VGqe Z4PiyiU9AXGvwILpHUgeL IB9G71nm6V7LLYyCBZyAO C2mAG2gP9jnPvdseovdDQ mdDsgdmVydGlj AOtsQTjpJ353BIZioZnzF kZFTUFMRTwvdGQ+PHRkIH A4yJzfBFfmRVXvgU2rFAE mB7t9QdZrNtO9 UHqeE3GxNBBrzjdzVp78z W2tReZsMmO3AWeiM8Uaxf Z3DCWniXZaVTiyCEK6M68 px8E2RLVpSMMn CGC4xZG0gW0cmQbosppfr GVmdDsgdmVydGljYWwtYW vgM508UCHjzVpeQvZtbNH OgLCdUIJ5GD87 TK65H1OtTqohlOCsqRW+P HRhYmxlIHdpZHRoPScxMD JfOhVxxUzkNQ7gPv0tQIF yLWNvbGxhcHNl QjEzr7bsSZYtZMbjRW6rr BkaW7YuaOX0KJJjs0n5Zz 58R84aI0EypOC+PGNvbCB 2dSQ3vW7nOfDj ZmH1SRinS806EiTgrDKdC wyeo7isj5ruuQv0SlPhXF UukmWyaOpsSOU8q6XwKk9 1P78pBFvnUBYc WBLrOMYhZWEwgEokao4cg G9wIi8+BZTiwBA5wPO5aZ 4jZmYjCdM3VXkvW322KcF sfRRxBrmiG94u C9QjqGQ+VXDaSdj1EXKbe UidHH9sbRBzAAxyQz8fQU R9LeKxPpTwIHdbX8OmEHB pbmctcmlnaHQ6 QXFkOFIhwO95Fd6rzKmbD s2jTSLpFZP7WBQbrJLdL2 LprP3tArZhCBMmDVPbI5S odRHjCIclB684 EWciIbG7JRZwydGbG9CsW XNytHdqCoE3o8G8Na7RsM ekfXHeWA9vOyHpISk8I0U iCka7XNFclIpv LP3ugXGtKIyhIa0caYhgw NsrVK5wFCJofaztl971Of Cha6bvSCYrjCLtNDrlGQN 4C61xk8B6TQUd WKYjSMW7aBP1pG9syTgsr jogbGVmdDsgdmVydGljYW zvJVczS461EEBheCqcVgJ KHbt1F4TpMmt8 PLVeoRemJL0toWGtEAmvI s3nnEphfNiuBJ1qLXAbuj owy925XxKbi2mzQWEdpIH xNEccNVV2R96a d5N8UNFxHYWoTKJ9bID3v L2crZhamttrbYGkrFsuoy UvnLvmBYsvPMjuT471UTV ypOgaIq2HVmv3 F4HeNqy1GMUocLmrMN6nr XHfCBmwGe1jsVprbPrxDW 5tJSDbztrmv223UsCiu2r kIDEwcHQgVGlt WPS2E22bd1L0NERuRWKuN CJ7uMR3bA2amOspqezreI VmdDsgdmVydGljYWwtYWx gJ664RBUtlWvy PlBheWVyOjwvdGQ+PC90c j60E9AnKuglYuo6HSKxLB B0gHM5wX1yPSTfDZfss6T 7rKT6S4NdcuTc ci1 (more content not included)... [facility] Consent Formson 12-30-2022 Consent Forms [id number] .[id number] [facility] Anesthesia Noteon 12-29-2022 Anesthesia Note Patient: [...] on: 12/29/2022 09:33 EDT] Jalen Hagan MD [facility] Anesthesia Note Patient: BINTA GRAVES Age: [...] All Problems Lumbar spondylosis / SNOMED CT 385089059 / Confirmed Anterolisthesis of lumbosacral spine / SNOMED CT 106425588 / Confirmed Histories Family History: No family history items have been selected or recorded. Procedure history: Facet joint nerve block ([id number]) on 12/15/2022 at 42 Years. Comments: 12/15/2022 8:01 RABIA - Gail Morgan MA [id number] Social History [...] Oriented. Review / Management Laboratory Results Plan [employer]#( A) physical status classification: Class II. Anesthetic Preoperative Plan Anesthesia: Monitored anesthesia care. Anesthetic plan, risks, benefits, and alternatives discussed with the patient and/or family. Patient verbalized understanding. Informed consent was given. Consent was signed by the patient. [Electronically Signed on: 12/29/2022 08:45 EDT] Jalen Hagan MD [Verified on: 12/29/2022 08:45 EDT] Jalen Hagan MD Normal [facility] Inpatient Patient Summaryon 12-29-2022 [place] [address] Patient Discharge Instructions Name: BINTA GRAVES : 1980 Patient Address: [address] [place] [address] Primary Care Provider: Name: JEROD DELEON After you are discharged if you find you have any questions, please, call [phone] ext [phone] to speak to a nurse. Discharge Diagnosis: Anterolisthesis of lumbosacral spine; Lumbar spondylosis Prescription Information: If you have been given a prescription for narcotics, seek immediate medical attention if you have any difficulty breathing or any sudden status changes such as confusion and sleepiness. If you or anyone you know is experiencing suicidal thoughts, mental health, alcohol and/or drug addiction problems; contact the [facility] Formerly [facility] 25/04 Crisis Hotline -Text 4HDZA ft 862826. If you received any narcotics, sedation, or [...] business decisions or sign any legal documents [facility] would like to thank you for [...] Control and Prevention June 2014 [facility] MAGR Preoperative Recordon 0 12-29-2022 MAGR Preoperative Record MAGR Pre-Op Record Summary Primary Physician: Sarabjit Blanco MD Finalized Date/Time: 12/29/22 09:18:18 Pt. Name: BINTA GRAVES /Sex: 1980 FEMALE Med Rec #: [id number] Physician: Sarabjit Blanco MD Financial #: [id number] Pt. Type: D Room/Bed: / Admit/Disch: 12/29/22 [...] Signed By: Namita Roman RN 12/29/22 09:18 [facility] Operative Report - Surgeon/P reagan 12-29-2022 [...] on: 12/29/2022 09:03 EDT] Sarabjit Blanco MD [facility] Patient Handouton 12-29-2022 Patient Handout [facility] Test Urine 1on U Preg Negative [facility] Comment on above: Performed By: #### [id number] ####[facility] (DEFAULT)[address] [place] [address] U Preg Internal Control Pass [facility] Comment on above: Performed By: #### 3 [id number] ####[facility] (DEFAULT)[address] [place] [address] Progress Note - Provideron 0 12-23-2022 Progress Note - Provider [id number] [facility] Progress Note-Physicianon Progress Note-Physician DATE OF [...] to proceed. Sarabjit Blanco M.D. JOB #: [id number] [Electronically Signed on: 12/27/2022 09:06 EDT] Blanco, Sarabjit MD [Verified on: 12/27/2022 09:06 EDT] Blanco, Sarabjit MD [Transcribed on: 12/23/2022 09:18 EDT] [facility] Coding Summaryon 12-16-2022 Coding Summary HTMLBase 64 XuvuruunOLj7kTw+PGhlY WQ+JP2GJCIzB08whPMaxA 3CM2fJWL9AKLYOSWQXBW9 DIY5pvHT9IHvvH7FvywHa WnzhoJTuWX12SXt5LXS3t BidTNromM5ugWPmU6d8Lw BcTV90wT17UCuhIAFeAaR 3LjZpbjsgbWFy F2hjXtZjvYSaIfs+PHRhY mxlIHdpZHRoPScxMDAlJy DdbNycXE1yBe2mRACbMQM vbGxhcHNlOiBj f9fuBMNqHYluLT3jhCgiP 9GzvQA2AHXyw2v0Wd02hR I+EUOnWUU4xDubLVnrm20 9JjDah3fzZJH3 uMLiPHnzHXS5U79vq1L0V KVyKQMqKIO8vTO0xL8upS ydihrrQ5RwoHBfQcK5KXN 4bNHtmU6osNbo zdzhsX7gClm+Z78BXZ0GE OSSCM6QRjv5W6ZaHcsrfH I+OD65NUEsWE02bRBhfZS wi1huwVr9CqQu WBWhLRB6vTkhFVpqf5LeE XEkJ20vtQIpr6C6NCUmwT hnkSIuQuXmiJA7dL4rCNd xawtnd3myarft Vjdua5wsjv92xX30S58dY ZhePHAgZRF2ILEzQLIebS ehup9xmL9nYj9+VNhaw2d wa6krvJn2TfFs BBZrpmDvmDchYNK0o2EwX o21B9AcsAjer2SaOdy6bd 75uRLuf3P3dSX9UOzjKWY jkQ1dZQdcPhM1 SCCcTrBwaH62rAAbRBphS p4clJsmkQaxFO1fDSGrsz njSXXrtV3cSESeyYUahMd hFM3lSMAzeemf n813XaSmWZP8LODlxFIsO 7KewN3iCeDwPOFoESKqR1 DhgMHsHHnoM626XDuhGiD 7MRUebhJiF9Lc YYTmgCslPbC1w8O7Nb9Xg 3ZdawrtXSC7PYszOJMwKh P2ZySpClZ3Y8UcVpc7QMG luXhmPI1jQ4Cw CPRyqcfjjstzjVV2DXSeX CNviR55hDVrDVnlNg4lv7 F7n355VGOdURQryA35Mo7 udDogMTBwdCBU qZ3yoivuw5wfblzwSnTuC WNgNMr1OVp3KUHezNnbHo FgMOU0FdJ9HPD9oXRzkM8 bmFhorbshbR3e Oyc+Q54tpM7xIWB9PDZ6k gsdHUEcszYsMB76WL05H5 RyPjwvdGFibGU+PGRpdiB cnEnzRF8rKoAu o8bcm8OyUAxzL9HkYVHcF QtcYub3BDVgAIE3pEX9mM 6bVXVwYPytf2J7pJN4S0S knmVnva4pr8un CVLfRUkaU79diUXuc1P8S IDlvJR7XCUfeTxeFkKpdY 93Oyc+XRIolAbvo7TjWxj od7rhk8oynEb4 MmMwNXGuodLonZuoUXF6b 9GuKj49N99kXMfdTQIgTS AzZYGxWBUgtQaltp8kcB4 wIi8+PGNvbCB3 xCB0mX9sJGJyHdN9AXfwY 352RgMftTFkCxcdy4sfx5 zukXx6BoMvMHLbksOnsAs fLRC3v5CoKs17 N56zIRquDJZzFYZaXSFvF EJcnNalcd0ycN9hBp7+PC 3gf1zkms43bL84sYA+PHR zGTV4wTkfHWzs MNVjrT5bPSemSgA5WXGvI nPlzG25iILdZJmxWu5riJ ypaQjwXR6jUOEhuhbst73 0AhFli7bvKGEi uIWsIEhpQOA3G83bg9G1J KQlRIVxLDY0lKH1eO2koH lnbjogbGVmdDsgdmVydGl fIHouDBulA611 IHRvcDsnPlBhdGllbnQgT rNfAXh5E4CvCwf5LQFvuJ mcMB8hhYTtOXruJh3ubSl izEflCG8nYNQs ffdze961RaZbv6ibHBEew CSeWIccELH6H92tk3Y4HL RlTRBxMCB2zEK2nS4epSb nbjogbGVmdDsg bgYkeWifGTdpQLpdA069J HRvcDsnPkJpcnRoIERhdG H7JD94IQ31nUIqs5L2rUX 3Z2VrCKVtbxns mtqebCN7EPZcJHYuvS71A a1jkWdmQg8eIZGfFFX7VZ FrdQOvA6FgzR0zKjCqJUD oGOCpL4VclNTj SFfiS160ZQznJsH2BZQeq aAuM2CeXGBfwXdnTyE0x7 F5Xt0GB0N1ZI81PG03cDJ ku3T4bCU6L2Me OBHtawvfsnfciJH6TDQkH XDiuD85Sg3nzVclWp9tUJ SgRTL1EEFinULcX2NktC7 yOiAjMDAwMDAw C2WpzKErAJzwE915AUtpY jE6LWKqhpRyW6LkDQBieF wgGrN7d7U3Vh1KRHo1CD3 7PK78aFNpc9R0 yBH9S8SpVXYqofmrscweq ZC7GRExCDDbeN79Eg5jbK mgFo6gBMYaSQR2KFUmbJS nP1IyaP2pBmXa EHAhNQDhB3KjjMCnMCzqL 206QTvbUwO8WNWcpvXiT5 XzIUYyzCxdOgI4j8B0Ij0 SWXOrGW54QHH0 oUC8VL12JA70L2MfInakr GFibGU+PHRhYmxlIHdpZH RoPScxMDAlJyBzdHlsZT0 yQr5aIDVxPELi mQfaoDDwJtPqh3gtOJSfC TieKT6daEuiJ3MlwNG1TZ Jum3t0Ty93F73oP3CgjXY +VNUrfDA2jDK1 aP0vNoXaTwM6UEqfI062D oSdfJSjGomnm1jxo6kqaS m3QtG0RMQqjyNrnTeuQLR 4h9ZuZf18T67a IHdpZHRoPSIxNSUiIHZhb Ehpjo6ohS0hCv4+PGNvbC R8pFS4fE2rIwDsWdU0FFv mU972FkAzdBOq Vgszq7rsf0pvlZc5YhDoG CSfmxRccUlfDQI4i8KcTg 61G9OohGkst8EyDgo5iv6 9gSRgl6H2vCD0 S3AgUSOjdbsohFSkeFjvA S8vEMZqcctvAJFuhP8qBN AqD0y2XuMhBzC0IDayX2T rchX2EGQilBLa QHukUVR7D38yo9F6BZZpT ODmMKO1pYQ5gT1etGxzfn ogbGVmdDsgdmVydGljYWw eELtdO562GZIv vRawMMHqzP9tIKAosNGnt OjrNR6qZZBvhpfzKh5TWj RJTiwgRUxJWkFCRVRIIEF OTjwvdGQ+PHRk KNR1mDqxXKbuOFUndI6gE EWhS0k3FoXtIsO3YTxnJ8 PmJUNxznxuRo73tN6vTwG eDyY2HTqyP1Jy swC1KZBwcQOuCOwpIBB2I 34xf6J9BNBrXUWtYSS6hF E7jH1knTcyktogvTJocSc gdmVydGljYWwt SXygK663JFRcnQijNtQ4P tPxZqF0ERY4Y0VdQni4CE LkpBvmYU6yvBLqHMhvGy4 laZdyeYnkUP3f MUKnuftmUPFvlU1tQVXfc XOpoYcoMW2jVPAsbmmjw3 68GxPmMSB0JGCxvOUzS0X xsC8tNkJdPWCy PHHeN2YswTAjHYytP196Q BsnUeJ2QABejoHiQ1ZxJK OgmAkbTfK1s5K1Cr87NzP ZZWFyczwvdGQ+ PDUbOGR1wHjmBKowTEYlf L7mBRFtY5l6QqDeBoW4BQ gcE2CjZKHttoreBs06bZ5 vSmVpRuG5VRvl X1ZfoaI5SAObiUUjEPctI SL9I48tt7Z0ODIzIWScYB V3yRK8pO3ckCrcpumakFU mdDsgdmVydGlj HCtzLTkiJ675BPGyzHkjA kZFTUFMRTwvdGQ+PHRkIH P4hUxeEOfvVFOtxB1tNNH jV3h0ZwOlJtA6 DXyrA5XlDQOdhkdxJn00a V1rTmQkMgY2EAnaV2Tdwn K9RBSjxLXlDLpsVJG2Y37 ha2J5BJMjHHMu CVI7mOP1lU1ptHjcvxoiy GVmdDsgdmVydGljYWwtYW hdR663GHWwqClcVeHegCN CnIBxNRW3KB18 SQ14T7MgJezvtEDqkAE+P HRhYmxlIHdpZHRoPScxMD MiUcApgFbgYK4bYq4fGNX yLWNvbGxhcHNl CcSeu1otCSTfIBjtJF3ya WdoC2PbgRK8ZRExu2f0Sp 07V98hF4JwpAS+PGNvbCB 6qPT2aC1eIjZg ExQ9KCwlH395EjFycIUoI lqaw4avh4jviIf5BaEkBI HfawTabEqnDDV7j1SbNv7 7O91tAJmeOTGd IGPqVDRqQONdcYbwzd9mq G9wIi8+CGMpdNL6kFU4rQ 3qTbKsHkZ9JVakD162ZmL mvKYpKrgaY91i R3JjhDC+QVYnDqo7KIApc RhrKG2seUUkFNraIx3xZP F8FwLyInCvDGrdC2QsMYW pbmctcmlnaHQ6 ASWpXSEnmQ96Lt5cuVepX j5fTXRyATH7GTLipHLvS8 RafR5dOmKoMREkKYKyA2U fxGLnYFusZ029 OGvyUqU3COIrrxXoI6NiT MCmkRcuYkL9z2M0Tt1YaE qyqXKoXG5ePiDcWVs9Y9W qSyd2WVVcwOaj JV0smVPrTFkhAu5yhAnjp IdvAB8rGKZtotska100Yn Ybb8aeVPKxhMAvMQmnUCG 2V27ee4C6FKRv CSVjXLP3mMK9nP3fxFzng jogbGVmdDsgdmVydGljYW wjBDpjZ913TUVcdTfaTiK JIga5T3KwMxb5 OLInnIabOD6meNGeTWhsL u1mfHbqmBwxQY8vZDXhon rha712MwCew5aiQLYogMJ kROaqOND3Q57i v7D7XCBtGEHsDKS8fLY0k O4gwXjymmgpeUKmvZrmad XufUgjFVhxCAecU639DAP ktOfxBl7CXyc9 M4TqJlm8IXGhwNwzPG3kw WNjEEbiIz4joSnlfMbbSG 4oAATbmpyge834YmPlj4h kIDEwcHQgVGlt MMK1Y09jn3G4MTYtUYUuK OM7rRY2aV4zgYjldznpvF VmdDsgdmVydGljYWwtYWx yR896CHOnfPgh PlBheWVyOjwvdGQ+PC90c a92W1BhPexrTtu4HZPdAM T1gYX3gX8lYPPsBNutv7M 7lNQ3U8MlfsNe ci1 (more content not included)... [facility] Consent Formson 12-16-2022 Consent Forms [id number] [facility] Inpatient Patient Summaryon 12-15-2022 [place] [address] Patient Discharge Instructions Name: BINTA GRAVES : 1980 Patient Address: [address] [place] [address] Primary Care Provider: Name: JEROD DELEON After you are discharged if you find you have any questions, please, call [phone] ext [phone] to speak to a nurse. Discharge Diagnosis: [...] problems; contact the [facility] 25/04 Crisis Hotline -Text 4HHWL iv [phone]. If you received any narcotics, sedation, or [...] business decisions or sign any legal documents [facility] would like to thank you for [...] these instructions at home: Medicines ? Take gkzr-kbv-wzpvqoj and prescription medicines only as told by [...] (more content not included)... [facility]R Intraoperative Record MAGR Intra-Op Record Summary Primary Physician: Sarabjit Blanco MD Finalized Date/Time: 12/15/22 09:41:51 Pt. Name: BINTA GRAVES./Sex: 1980 FEMALE Med Rec #: [id number] Physician: Sarabjit Blanco MD Financial #: [id number] Pt. Type: D Room/Bed: / Admit/Disch: 12/15/22 [...] Cox MA Role Performed Surgeon - Primary Campaign Developer Campaign Developer Time In 12/15/22 09:17:00 12/15/22 09:17:00 12/15/22 [...] Luke T RT (R) ARRT Role Performed Campaign Developer Scrub Personnel Ferris Wheel Operator Time In 12/15/22 09:17:00 12/15/22 09:17:00 [...] Agents (Im.270) Povidone-Iodine Prep By Vida Figueroa STARCH AND PROSIZE MIXER Prep Area (Im.270) Back Prep Area Details Bilateral Skin Prep Agent Dry Yes Without Pooling Hair Removal Syntegrity Hair Removal Methods No hair removal performed Outcome Met (O.100) Yes Last Modified By: Jacqueline Matos RN (more content not included)... [facility] 12-15-2022 MAGR Preoperative Record MAGR Pre-Op Record Summary Primary Physician: Sarabjit Blanco MD Finalized Date/Time: 12/15/22 09:34:52 Pt. Name: JELENA BINTARADHA ManriqueO.B./Sex: 1980 FEMALE Med Rec #: [id number] Physician: Sarabjit Blanco MD Financial #: [id number] Pt. Type: D Room/Bed: / Admit/Disch: 12/15/22 [...] By: Sharon Epstein RN 12/15/22 09:34 Normal [facility] Operative Report - Surgeon/P reagan 12-15-2022 [...] on: 12/15/2022 09:27 EDT] Sarabjit Blanco MD [facility] Patient Handouton 12-15-2022 Patient Handout Orthopedics [...] these instructions at home: Medicines ? Take nujt-ofu-mzpggal and prescription medicines only as told by [...] sugar if you have diabetes. ? Take ouvz-vmr-uiytaby and prescription medicines only as told by [...] provider. Document Revised: 06/11/2020 Document Reviewed: 08/27/2019 [employer] Patient Education ? 2021 [employer] Normal [facility] Test Urine 1 U Preg Negative [facility] Comment on above: Performed By: #### 3 [id number] ####[facility] (DEFAULT)[address] [place] [address] U Preg Internal Control Pass [facility] Comment on above: Performed By: #### 3 [id number] ####[facility] (DEFAULT)[address] [place] [id number] Coding Summaryon 12-06-2022 Coding Summary HTMLBase 64 VhleqzyjEBn5ySz+PGhlY WQ+HE2QCXGaO89quGYxcZ 2UK2vKIJ7CNISSYDWCXM6 DQO4wbBT7LFsaQ9KxvzFz NeogcOHvPD58KMf9VGY2g RbxNPwtdZ0bwLRiX2f4Ri VeYI33xJ21OUwaFPHsPqR 3LjZpbjsgbWFy A7bzOqLvaDTwNav+PHRhY mxlIHdpZHRoPScxMDAlJy MnlHlbWA4hHy1mYDPiHZN vbGxhcHNlOiBj z4mjOUFcAGdnBV4umDkdG 0GeuJV8KWJue8k3Yt37dC I+ALZcRIH5oDatKXbcz50 0XhIew4xkYDK9 yFBqNZdlNXV6D93pu5U8K LXsLOPeIIS6tZZ3eF6vpV qzzfksD2XnjZNqGkD2PLJ 2gGHndN8apOdz ffssnT0qBnl+P26RFX9AL UOXGA6FDyf0L9SgImzheO I+AD47FPGfUY74oYPvyJT wi4sngWd5XwYs SSUfGGN7fNjuFZyln0NpP DUeA39ihEVxj9Y4GWJzyV affVNrLmIclTH1rF8hJHx tuqlkh5cqrrsj Vxnxt8cyeo05hB97J04aH WyyCHJcUOE7JKZcUFMlgA wgty4hnS7kMz1+PYljo7q fy5truYp1IcIr DKHeenOdfDhhBOC5b7SrI w39E4LwaKmtv9AeWdn7mr 51qNGjb8A1cSQ2BXzyMOT lvY0zZFzcUxE5 GQGwRnBprQ47pSNiHHmpL c8mmOpljMxnIS2lFCXdte cwPJMraX4nQKYvfXWcfFu cQV1cNWFhgmkx k683LvJjVTI8KEQyzSGrH 3LazV7vJdMzUIWjUXMuW3 DcaOFpRVkxH906ZMfdQiL 7GBUvgbTaX1An KRRskHosVwE5t3Z8Ss0Fu 3MarfryGZE3VCffQFCnSh K5EjPzWnQ7T3CeZdd2ZAK ewWltKA3sA9Fk AKXsayhmsamzoJZ2NIJoW ZGpqY86kZZmNGjtXi6fb1 X1k796HCKxWIVgjR39Np2 udDogMTBwdCBU iR0gdncfu9uabnyuDxToI YSlXDp2DEd9ROOtlZimTi CbEJI8UqM4WHR3hWUpgI9 woNhjbaocfR4s Oyc+Z41kiH3tJHP9ENR4e skjKRLkbaMuMR40UL85E2 RyPjwvdGFibGU+PGRpdiB xuCpjAJ1fRlMh o8ncr5RuRJowG5FqLMWnW HqpDfd3YOUbHYA9kLU4dK 3mXQZhFVckk7H1fOX3A3C rmvUxsm8qm4fb ELXjAAcaF58vdFRba1X0F OTwcKA9PEFcnOfoLcXrrB 93Oyc+ETBgnHgpy8YbQqb lr2qpf6mdqNn5 KpNcGHXfosXdpIluTYZ0j 8FkCm46V70mBUnmBFBwGL ZoEAYfPTImlJtfuu8ndM8 wIi8+PGNvbCB3 bIZ1tW1vTEJqAuZ3GFokF 968CtTgzDVcSyfkm4mzm6 nqpCz7UlMiRBYrdvUsdFe xRJT7o4OaGb70 I45zAEnuQPEtOQWvSSXnH PQpfMbwiv6xgI2eVi7+PC 5oc9nfcd35iK19cDE+PHR rHYP6xAneFJjy TGKoqM4kIDrpJiR5JSQaP oXdbD14xXIkUQysKl2wsD momHnmYV1aNJKkjbfxo78 3KuSgs8mjGOJc nMIfQGovFZX1N94jo2S3S FXzSUWgOHX7eOX2gX2pjP lnbjogbGVmdDsgdmVydGl uHUniXTryG368 IHRvcDsnPlBhdGllbnQgT vVaNQx3F0FrQiz9ZJHfmP atNP4skNEgQTsdMk5igBq tvBmfBZ2aWVSm tsulr531SnPir5zgYBQyk HSxRUnsDRI7J38th9W7NG XyNLOnAHQ1xTX4dX5eoEr nbjogbGVmdDsg glWlwDihDMgzMRkuF514V HRvcDsnPkJpcnRoIERhdG P8HU35XI60eKRyc9Q5tCE 3D5IxDFUalzbn vgdwuCX1XBRaHOHfhY32V y1ggSxmGd7hCISoWHD7CN MazDXhP8EgqR6vLqKqFKI cBSItU4JvzZTc TLtqJ800AAjdBlZ0WPGkb tXzU2GzTCBxqDnmMuJ9b2 N5Xx4HO6D3SN05JF23gZQ th0P1fRO2K9Nh JCOnqyceorgdvQG9YICyO BSosR80Lx7ouQwqHz8wBU JhGDI0EACckTBaW8HpfJ7 yOiAjMDAwMDAw L2BnoSJoPNodC020SZhaZ wE3IVOtsuTbT9BtRHZmiG jzEkQ0l5X1Hy6CEAg3IT8 8BK87lLMpb9K1 eBP9B5IpOPEswfhtklmss JO0AMBsDNVzlH89Vf4zjI pzFm8vYVHoLRR5PIIaqQN dJ8TyuB3hTiJa GWExRYZyU7OsfJBzIXlkZ 102APbbGrH5OWEpxvRjQ4 YdFKKrfWyoIgY5n2J8Xf5 PUYMwOJ01KRY8 mJB3LH72XD11Y0KdWczud GFibGU+PHRhYmxlIHdpZH RoPScxMDAlJyBzdHlsZT0 kAl2bUZHiACFs xIlygWEzVeUhw0gcYSYmY UnyGN4hvJjpF7NwfXP7GZ Dxe7z4Xm60O99qI7EzfJY +SJWdgXX8qJD6 bM1hHdSlXqL1IZfyJ594V vPucGYtDlpzm8dvd4zggF l9DtK6WFZokoLpfMtqESN 4f6HdEh61J13p IHdpZHRoPSIxNSUiIHZhb Hlprq0ivL9aTo3+PGNvbC P6iAN4nV3fOeJhRnJ6OGf uK945MoMmfRDm Vppbp8nbr6cnzOy8DhSrN BUyprBqjIotHYR1l0OsOf 19V5KagRhfi3VwHyy5lt7 4fXTya1T3cFC2 W2WwLJOejwjnbGEqtRnfZ R6oEALjhybbFMLijP2rGM GnH8c8NbKfZbD5KYzlZ1T qvcL2EPBurZDi DUcsALK0J05mn8N4GVDbH AZsHFI2xYO2uO6upDfgyp ogbGVmdDsgdmVydGljYWw kSHqnJ834TIZa nRjsVLAgzT2wQXQsiSHyx HfjBJ4lZZYzalouAg4KIx RJTiwgRUxJWkFCRVRIIEF OTjwvdGQ+PHRk UQI3iAndRUdmJDGypI8sW XPnH0j6TkVfHnW4GTlzH6 NpHPXehxqzSc76pM8pEnN jLsE1LFizP6Wm awK0XMUarVRlYIepQDP6D 49ka8K3EGYvBJPvPBW6mR Q3aZ6wkLquocsqjUObqAp gdmVydGljYWwt GZneD925MMKzdVyfQgY8T mOwDlI6JPX9M0IsLev2EB SpyAusQP7ncONkCVqqRj0 eaKxpdDwsTZ6g KZDyhwbjFNLgrE7uKSXmv HAumUowUQ1hBNPyrgxke4 98FuReEWV0EORcrFHtB8S wbG5wRkIhECGs RKXcG9QpxBJiFQzqT639Z UxlUxB4ZWXyamOtP5JkVF HbwXflZcW1y7W7Ow76QqA ZZWFyczwvdGQ+ ENMhZQL3iIzpYSyvIIRkf S8cPISyE1k9KlMjSlF3CA gjP1EvVMAgnrucAy57hC2 jUvMpUvX8VCez J1TudeW2XYMubCToVZbjG LP2T73id6I6UIKnRLAhQB J2gPA0jP2jaHunfkjruRP mdDsgdmVydGlj LZupRJtaV706LRCdqWwrD kZFTUFMRTwvdGQ+PHRkIH Y6zGhtMLvvUTQreG4oXLF tH6q3FcVeYoA8 IKnnT7WqSDOaqtfsYw74i C5pByAoCdR4DGxoO6Fnsl X3PXGelUFuPAbcRJQ1S62 uo0R7QOMeVHLi EZX9uVL7wK1jpKqvrjlol GVmdDsgdmVydGljYWwtYW eiN578MVUoqFqyPj6EKX7 8OY16I7HcYdbh dGFibGU+PHRhYmxlIHdpZ HRoPScxMDAlJyBzdHlsZT 8tTk9eUDEhAYZcqKfgeYU bFcMeh8fqKUQy DYiyII1jpKghB1HmuXS2M CNgz9r3Uf36N36qP6AygU A+KWYsaPX1eNH5yR0lSnZ lMeR4EEpiO355 CfSlcCSiJkqao1avv3cgd Fj3GhTdZZAxdkUakZcfBB R1d5QoWf96N79oOFqhMTW oPSIyMCUiIHZh rQlrbn6lcQ3dQd3+PGNvb LC9vEC5eF4yCdWaPaR4DG bpF525PsJouLJlPvxqY29 tP8JlvMI+PHRy Inf4TEZrdHmoGK1pdDEuX HhjWz4tCUO7ZuUaUeWjPZ ayP5SfZIRkvduagxnlsRJ 3UWAnTKFjtE90 Ko1fsZceMe7cLGKaNAQ5H XJmmUEyL6NujM3jPaLxSX MeNVPnC2TzzDRbITgzM09 5KHqqGfX7HBAh afKdG6UlUHUskAswDuK3y 7O9Co2VgCpybHJyDL1yLd SpYHh3O2DlUyp6CRNvxVd sGX3emBLaPJom Zz1rcXbczOrnZM4pVULsz vype808KgQek9oyAXDyeJ TwJLhaCDE5U99ql0I0QDT yLLXvPLI1gJB0 wY3pgLuplmgooPKlmXgej iWlyZquKHcrPXvtD997JW OdzShuSwSYSoe9E2IpRic 9AURncEyvJY6t lLDtKYpkHt2ceTsyiWvvS R5tYMAgnsbpi938BfYcn0 lgIQMvcHQdRZgsRNO4M59 qo2C1BEOmACCt BPB5rOD0jR5lhVmwhycys GVmdDsgdmVydGljYWwtYW jdU728GQRazQllHn9PZxo 5K5GoMke5ZJIh yAanKM0hpMCvPEaoRz2el YbzuWyeEB4wEGQzkvwpr2 94RfEnl9beIUBudRNkIMi zHPU6J27za1T3 OMCfTHQfESB8vVN2mB2jk GlnbjogbGVmdDsgdmVydG wiFYzqWJbjE052VUUglVz nPlBheWVyOjwv dGQ+BT33vw90V8DtThvtR id1UPGbLHW7lGR3iL1vDD PtSIobd6T1wRK6Q6EqjaS lfx6ix1cqYVIp ZTo (more content not included)... [facility] Progress Note - Provideron 0 12-06-2022 Progress Note - Provider [id number] [facility] Progress Note-Physicianon Progress Note-Physician DATE OF [...] to proceed. Sarabjit Blanco M.D. JOB #: [id number] [Electronically Signed on: 12/08/2022 10:52 EST] Sarabjit Blanco MD [Verified on: 12/08/2022 10:52 EST] Sarabjit Blanco MD [Transcribed on: 12/03/2022 11:25 EST] [facility] Coding Summaryon 11-22-2022 Coding Summary HTMLBase 64 RgbdtuhsWEi8dWf+PGhlY WQ+VS2NVLQsJ53fuCXqkE 8UK1iPUV6ELRESNNVBSS6 DHR8iyHD2HIebR2ArubQs LbyjkSGuXA98THf6XUH2u EerKYjabI9lfMDyH5c9Ox YjNC81mB28ZYkpOPKiJxZ 3LjZpbjsgbWFy U8vuLwYwoXTbKzr+PHRhY mxlIHdpZHRoPScxMDAlJy SvvWhuSC5bHy6rWABlJLZ vbGxhcHNlOiBj o9kbEYNzFBkvRY7uxBjlH 3YoeHL0WHZvd6q6Gu69pT I+PQApAVZ3rDusZFend77 8MpNce6zhSYA2 pXUqNFjlFXG8G42rq2Q5Q FNoZQWuJLX0lYK5uW9kyW rxslnpH6BcvYNjTlM2JUP 2zGEutF0nbEkk jqixkT3lPik+L44WFC4HR FARZK4ZNfa5R1ZvFuqplU I+SU62MAOvMI59aWDcaTZ mp3fnrPk5WnAt BHQnYYO1cZrdHMtob2DlB PIwG06miDUuu1S3LDRfzN rjwPNiGkJxvQP1sL1tZUi hvjvix3jpfsgw Otnda9dwrj88aG12C05kL FxhCWCeAFJ4WWFdOCUtfO lpjm2daG0uFf7+PHahh5f gy2kmoLj1OnUb ORHjmeZjcFbmSVL5r4BjS p52D8BtxIzzs5RvJxj6kn 96iBTlq6V4gPB9MZloSJA gyZ1iWDmbBaJ7 SVXjHmQxrD51jXPiMDvlR j3ifZubqMjnZP4nYXAzvw jyVWFdbZ3yTGXrlUCteCk uHQ8vFNUqqomw f451KcSnGUH9DNKhxYDpU 3BucP3pZeMsPJHbZQIbK6 AdxOJgEMkoS367HZajIbC 4HIWkocGeG9Ub DFZhvGhtUnZ7d8J6Is0Yv 2KofocvBTB0CYlkHVMsXp AzAdMpPnU8S0UzEfx7FJL lnPgtIV5dA0Yu UPDyymutrkduqUX7CSGjE FPnnV71zXZrCZtcBy2rp9 P2l049PCKuQJSkqT22Kp6 udDogMTBwdCBU dC8anidcz5pcggcbZtZiN XUhEZi2EXw7LVNnbFshXa EcAQM6BlO2EUG7hXXldF6 ibXwsmasqgQ1m Oyc+G53vzI4pFHR1WCG2w biaGRXhkkWfRN01YF52Z5 RyPjwvdGFibGU+PGRpdiB nnUrbVN5rSyZb y0vsy2BvHPavB6TlCSRcG FnwWbp5LYQkWIT4pZS1xA 1nDJBqSKkhc7A7jTF3V6L lqsZimc8kw8cq AHDnFYmeC40otUFkh0A1B YCzwCP8OLHoyQtlZzEpkT 93Oyc+UMLzfJhrw1DxRzh qi3ujj1hibRb5 VjQcXWDivpFihGffQQT7w 7PeSd02V90rRHzeSJReOC ZtEJArDCQilRfhqt4uoM9 wIi8+PGNvbCB3 iQM9yA9xZZTrCkZ5WVaeA 870IiPogBQgGkfwq7scv0 bauUs2OdEbDWGuygKqaDw jZVJ2h1AwBi73 R55hDDrnAERnIOYuTJJhD NNthIkygq2kzI0yEv6+PC 9ix0tkdr14zH47aOQ+PHR rLYL5pParGPrv UVHjpD1wZBirUmS6QRSkM lDahB46iPIbLGjxOg5zjK kdsWhaBQ0kDUVjmdraa76 4ZqJig0kcJSHb sAGhTPefRFP2S04ni9Y5P QKtTWBjJQC4nIW1uA8viV lnbjogbGVmdDsgdmVydGl aGGnzEBaqY912 IHRvcDsnPlBhdGllbnQgT wNaBRs8T1HtTea2HODzzY ypCO5djFSvLFfbCm6piVc owPpwDT2xGTUu vlakk904YtSun6oeXSOaz OEaCIljGLC9Q48qn7O2SM KrELTdNOU8qBU5pA6wlTr nbjogbGVmdDsg hiZbvDnfNBcnOVelE065G HRvcDsnPkJpcnRoIERhdG S3SA46BU31iQVjf4R2cEN 1Y4XkQDPlipqo nehlkLX5XFBfBOJjoS46T n5hzPacEl4nFOLqZDU7PI HhcYIgA4DekM3rHbXvOHX oMHXmC3AjnZWb IDasN849FEjhPrH7RFSwy oCeD0ArKZIjaFdpNyT4y6 Y2Nr7FE4D1KZ02PQ44dAF un9S1iJP4I6Nz MCGylrlwjrflzGQ3LXIyO ZAbiM84Ov0zsZrcGf0zVZ KzVER6FCXsgDCqP8WrhM9 yOiAjMDAwMDAw R0IgpMHmKGgvC051WMeyD xG8WWQlznUdH5UeICRbhV gfGjE9m2W4Gr2WDWr8HT9 4NX07jKCsb7F5 uAN1R7YiWVWibfpwgbdds CJ1WYFuFHMbqW85Fs4hvP stLf8cULRqJZV0HVXjlGK oB9XipT6hOcMp MSLbVJCtL4ZgiTPuCUrtZ 440TYqoOmW7VBQbcwQoR1 XqLWMxuSnoJeH2b7R5As0 DVYHyKM35ZSO9 iFS9PO15GO27L6RgUkjkk GFibGU+PHRhYmxlIHdpZH RoPScxMDAlJyBzdHlsZT0 nMf3vUJQhKNGe eQmobNDsYjZef6zuPNDuM MimLV0muUppC3NhaVM7OK Iho6i6Yy66Y78bB0GxiRZ +BHYcyLB9eYP9 dZ6yYiAkBbN6NRrwZ377F yAcfLSpGdtxa8xqi6ltiA a6VtJ3IYGdavZhnEdtHQI 8a7WsZf29G74z IHdpZHRoPSIxNSUiIHZhb Mujmu6roR2iRz6+PGNvbC Q8aCY4mS2eDoSfXbD4XOx zD151PnQasYWc Qhqee3zyj7afhSs1BvMyG JJgieDalRnmOVJ8c1MgMv 83Q2FmpSwac3EaDen6vh5 6pWPpq4T2qLO1 E9DoYFNoqkqqmRFuaLpaB H1qGRBjjeodBWKhsR9yTM LwJ8q5EdWsMdS6MDqkG0T nwrT9WWBbcIQu PHqwCMW7D22kl7W6ZIHtE EWkKPG5xNB2jJ9aqQgpxw ogbGVmdDsgdmVydGljYWw xZKczR734TSRy pGlpTYMibU7cDTJqhDGiv ZxcNN5vGOBeijkyQh9ZBs RJTiwgRUxJWkFCRVRIIEF OTjwvdGQ+PHRk LFZ6tGoaDYldPCLqaV0nU LZbR3v1RsUyCgU5UAukU5 DcOZDdstfgOc13rW7gRzZ nUnD7IDzdK7Yd hpP6UUPbxPSoQPfuVXN0F 58mx8C6PQQwRXJeOMI7dC Y0lG1awRhvlrdraYHdrFe gdmVydGljYWwt WArfJ920HPKdqTbfRbO5A iEpHlT9SBI9I2BzZsp5AI MkaJifQA5tdPAzSKinWr5 xdZfqfNjdEZ0z WBIkeiapUFErnD3iSHDur TCcsNbhSW0sLULzkxeek7 99OsJxDGQ4LRRfhVWkR7F buR2oXsUsJBYa PNUgA6VqyUTqUPxiI955D TbpTzG6NKUvuqYsL9BkCN EvlXqpEdL6v7G0Rx59BsF ZZWFyczwvdGQ+ ZCJgECP4uXdtCPjgAKJid A4nCGJeG9x7NqVbOrB2BB suU0QgOBFevuqhFy63nE0 qWbSxYyX1ASvo Y4LtqpQ3QITypEVmVZyrW AB8H15pg6I4ZASeXFSnUL S8iDA2eK0cyIofkacujLT mdDsgdmVydGlj VSfwJOtaQ969MIBcxPogQ kZFTUFMRTwvdGQ+PHRkIH B8nIxdWNyoQOMbsD2qREH qY7u3PbRmHvA7 EBahT0YkBQImnlkqDq59j Z5fYwHjPmP9YMjyD3Emwl S8HEVxiASwKRjaMOX6U47 xm2F6TDVrLJSq HOH4iVV1nF8okVcizguev GVmdDsgdmVydGljYWwtYW rmN873BZHiiSzuCx7EMO1 1EG54Q0UnVthw dGFibGU+PHRhYmxlIHdpZ HRoPScxMDAlJyBzdHlsZT 9tLw7lUBZrDPPrrLwaiBA gHuOrb8maGZHw UStkXQ4whXhzY1KmlID2H CSml0p6Fj46E13gE0GnjT A+EEQirXI3dBU7iO9uUkT kCcO9PRmhR388 WlYteUHjBrzol7uxr6cug Mz5HfViDTUkswGcmJasCZ R4f2MxUg28A85wGKadJTD oPSIyMCUiIHZh iQjttr8khW7zWh4+PGNvb MZ5xUR3wL2jJoVrTsK1LA dwE782XzXmnPBeYkwdX71 hD6IhjGK+PHRy Had0RLRnkYvaVI8fbCQcK BadSx3wUMH4QbCaUaHwDD xqC9HlZECyaixcbydxaDF 7LYSxFBNclY57 Zy2qcFbsBr3nNNCsNYX3O NUjmMKqA6RzwV1oFvVqYO PmXUMaV6NesZWsWRrzN77 7CIyqAaO6SABy ecIxQ8YcZTWbbKxfPwL5k 0H1Oz6SeDrjwZSjJN0mOo IoRZa1Y4ZfJmd2VKYdkMa bLA4whWItRTie Tl1msIumjYwjPM1fOORmy dges554YoYux4cdWSVcbL DcTAiqJAQ1Q23vf0S3IRE iREJdBVN9cKS7 uP8qpZifwevrvSOobOhye dIshVsuFLemXOekI490SC TpfGpaOgVOYwt0U5RcOkw 8MSHnrPgnOQ6r rANnQUkoQc8ukFufoPdcQ X7cLDCrlpgie267XcIgx8 piWJIkfFUjDFwoGRY2T92 dd0Z8HMFmJJSx JUL4jXC2dK2haPvvdxlha GVmdDsgdmVydGljYWwtYW aaH257ARSjnEibWg1NGic 5R6SkRui2LAJe nCyjOB0bdNLpGPccKl1lf LwkvZbvCL4kVQQyoxtmh1 72CpSaa7dcTSRzkKZfDQw mNTY3A08su1Y3 LGXjEEHwBVA5xHS6lP1xj GlnbjogbGVmdDsgdmVydG isXZvjWRzwG369DZUybHg nPlBheWVyOjwv dGQ+BT26wv81Y7BsElzwK lj8DEOlNPJ5dMC9hU8sET RjHKzcj4P9xEL7N4AsudJ exe1zy7aiWUBl ZTo (more content not included)... [facility] XR Spine Lumbosacral Complet e w/ [...] Navarro DO 11/21/22 10:49 a Technologist: GEOFF [facility] MRI LUMBAR SPINE W WO CONTRA STon 05-20-2020 MRI LUMBAR SPINE W WO CONTRAST [facility] Department of Radiology [address] [place] [address] Patient Name: BINTA GRAVES : 1980 Sex: F Age: Race: White Pt. Location: Patient Status: D Ordered Date: 05/02/2020 2:00:00 PM Completed Date: 05/20/2020 02:21 PM Requesting Provider: ZAYDA FRAZIER Attending Provider: ZAYDA FRAZIER Report Copy To: Signs & Symptoms: M54.16 Radiculopathy, lumbar region I10 History: [place] Comments: , Recent lumbar surgery, postop numbness left perineum and left leg, evaluate for nerve compression. , Recent lumbar surgery, postop numbness left perineum and left leg, evaluate for nerve compression. , , , Ordering Provider - A FREDDIE [employer] , Exam: MRI LUMBAR SPINE W WO [...] reports Electronically signed: Yamileth Barragan. Transcribed by: [email or web address], User Resident: ROSITA NIX Electronically Signed by: YAMILETH BARRAGAN @ 05/27/2020 12:36 PM I personally read this/these film(s) with this resident Normal [facility] Comment on above: Order Comment: The A ptima SARS-CoV-2 assay is a nucleic acid amplification test intended for the qualitative detection of RNA from SARS-CoV-2 isolated and purified from nasopharyngeal (CRANE MAN), nasal and oropharyngeal (OP) swab specimens from patients with signs and symptoms of infection who are suspected of COVID-19. Results are for the identification of SARS-CoV-2 RNA. The SARS-CoV-2 RNA is generally detectable in nasopharyngeal and oropharyngeal swabs during the acute phase of infection. The Aptima SARS-CoV-2 Assay on the [employer] system is intended for use by laboratory personnel specifically instructed and trained in the operation of the [employer] system. The Aptima SARS-CoV-2 assay is [...] Reporton 0 Operative Report MR#: [id number] I [facility] Pt. Name: Binta Graves Room #: 5AB [id number] Discharge 03/09/2020 Date: Birthdate: 1980 OPERATIVE REPORT [...] Traylor MD Date Trans: 03/21/2020 04:34 P/chrissy [id number] cc: Jerod Deleon M.D. [address] [facility] [address] [facility] *MRSA/MSSA DNA NASALon 03-07 *MRSA/MSSA DNA NASAL Clinical Report: (D ) Specimen: NASAL SWAB Collected: 03/07/2020 10:30 Status: Final Last Updated: 03/07/2020 16:47 MSSA DNA (Final) Negative MRSA DNA (Final) Negative Normal [facility] Comment on above: Performed By: #### 3 [id number] #### [facility] [address] [place] [address], [place] BASIC METABOLIC PANELon Calcium [Mass/Vol] 8.9 mg/dL Normal 8.6-10.3 [facility] Comment on above: Order Comment: No: D o not add to previous draw Performed By: #### 4 1000, [id number], [id number] #### [facility] [address] [place] [address], [place] Chloride [Moles/Vol] 105 mmol/L Normal 98-107 [facility] Comment on above: Order Comment: No: D o not add to previous draw Performed By: #### 4 1000, [id number], [id number] #### [facility] [address] [place] [address], [place] CO2 [Moles/Vol] 24 mmol/L Normal 21-31 [facility] Comment on above: Order Comment: No: D o not add to previous draw Performed By: #### 4 1000, 27427, [id number] #### [facility] [address] [place] [address], [place] Creatinine [Mass/Vol] 0.75 mg/dL Normal 0.60-1.20 [facility] Comment on above: Order Comment: No: D o not add to previous draw Performed By: #### 4 1000, 61784, 45399 #### [facility] [address] [place] [address], [place] GFR/1.73 sq M predicted among blacks MDRD (S/P/Bld) [Vol rate/Area] mL/min/{1.73_m2} Normal >60 [facility] Comment on above: Order Comment: No: D o not add to previous draw Performed By: #### 4 1000, , [id number] #### [facility] [address] [place] [address], [place] GFR/1.73 sq M predicted among non-blacks MDRD (S/P/Bld) [Vol rate/Area] mL/min/{1.73_m2} Normal >60 [facility] Comment on above: Order Comment: No: D o not add to previous draw Performed By: #### 4 1000, , [id number] #### [facility] [address] [place] [address], [place] Glucose [Mass/Vol] 92 mg/dL Normal 70-100 [facility] Comment on above: Order Comment: No: D o not add to previous draw Performed By: #### 4 1000, , [id number] #### [facility] [address] [place] [address], [place] Potassium [Moles/Vol] 3.8 mmol/L Normal 3.5-5.1 [facility] Comment on above: Order Comment: No: D o not add to previous draw Performed By: #### 4 1000, , [id number] #### [facility] [address] [place] [address], [place] Sodium [Moles/Vol] 136 mmol/L Normal 136-145 [facility] Comment on above: Order Comment: No: D o not add to previous draw Performed By: #### 4 1000, , 66976 #### [facility] [address] [place] [address], [place] Urea nitrogen [Mass/Vol] 20 mg/dL Normal 7-25 [facility] Comment on above: Order Comment: No: D o not add to previous draw Performed By: #### 4 1000, , [id number] #### [facility] [address] [place] [address], [place] CBC COMPLETE BLOOD COUNTon -05-2020 Erythrocyte distribution width (RBC) [Ratio] 13.4 % Normal 11.5-15.0 [facility] Comment on above: Order Comment: No: D o not add to previous draw Performed By: #### 5 0608 #### [facility] [address] [place] [address], [facility] Hematocrit (Bld) [Volume fraction] 44.1 % Normal 36.0-45.0 [facility] Comment on above: Order Comment: No: D o not add to previous draw Performed By: #### 5 0608 #### [facility] [address] [place] [address], [facility] Hemoglobin (Bld) [Mass/Vol] 14.4 g/dL Normal 12.0-15.0 [facility] Comment on above: Order Comment: No: D o not add to previous draw Performed By: #### 5 0608 #### [facility] [address] [place] [address], [facility] MCH (RBC) [Entitic mass] 27.0 pg Normal 27.0-33.0 [facility] Comment on above: Order Comment: No: D o not add to previous draw Performed By: #### 5 0608 #### [facility] [address] [place] [address], [facility] MCHC (RBC) [Mass/Vol] 32.7 g/dL Normal 32.0-35.0 [facility] Comment on above: Order Comment: No: D o not add to previous draw Performed By: #### 5 0608 #### [facility] [address] [place] [id number], [facility] MCV (RBC) [Entitic vol] 82.7 fL Normal 82.0-98.0 [facility] Comment on above: Order Comment: No: D o not add to previous draw Performed By: #### 5 0608 #### [facility] [address] [place] [id number], [facility] Nucleated RBC/100 WBC (Bld) [Ratio] 0 % Normal 0-0 [facility] Comment on above: Order Comment: No: D o not add to previous draw Performed By: #### 5 0608 #### [place] [address], [facility] PLAT CNT 194 10*3/uL Normal 150-400 [facility] Comment on above: Order Comment: No: D o not add to previous draw Performed By: #### 5 0608 #### [facility] [facility] [address] [place] [address], [facility] RBC (Bld) [#/Vol] 5.33 10*6/uL High 3.80-5.00 The [facility] Comment on above: Order Comment: No: D o not add to previous draw Performed By: #### 5 [id number] #### [place] [address], [facility] WBC (Bld) [#/Vol] 8.71 10*3/uL Normal 4.00-10.60 The [facility] Comment on above: Order Comment: No: D o not add to previous draw Performed By: #### 5 [id number] #### [address] LUMBAR SPINE 2 OR 3 [facility] LUMBAR SPINE 2 OR 3 [facility] Department of Radiology [address] [place] [id number] Patient Name: BINTA GRAVES : 1980 Sex: F Age: Race: White Pt. Location: [id number] Patient Status: I Ordered Date: 03/07/2020 1:00:00 [...] images. Electronically signed: Moris Vegas. Transcribed by: [email or web address], User Resident: Electronically Signed by: MORIS VEGAS @ 03/08/2020 08:49 AM Normal The [facility] Comment on above: Order Comment: The A ptima SARS-CoV-2 assay is a nucleic acid amplification test intended for the qualitative detection of RNA from SARS-CoV-2 isolated and purified from nasopharyngeal (CRANE MAN), nasal and oropharyngeal (OP) swab specimens from patients with signs and symptoms of infection who are suspected of COVID-19. Results are for the identification of SARS-CoV-2 RNA. The SARS-CoV-2 RNA is generally detectable in nasopharyngeal and oropharyngeal swabs during the acute phase of infection. The Aptima SARS-CoV-2 Assay on the Beaufort and Beaufort Fusion system is intended for use by laboratory personnel specifically instructed and trained in the operation of the Beaufort and Beaufort Fusion system. The Aptima SARS-CoV-2 assay is [...] Magnesium [Mass/Vol] 1.9 mg/dL Normal 1.9-2.7 The [facility] Comment on above: Order Comment: No: D o not add to previous draw Performed By: #### 4 1000, [id number], [id number] #### [address] OUTSIDE CONSULT NEUROon OUTSIDE CONSULT NEURO [facility] Department of Radiology [address] [place] [address] Patient Name: BINTA GRAVES : 1980 Sex: F Age: Race: White Pt. Location: [id number] Patient Status: I Ordered Date: 03/06/2020 7:05:00 PM Completed Date: 03/07/2020 11:41 AM Requesting Provider: DAKOTA TRAYLOR Attending Provider: ARNEL GARSIA Report Copy To: Signs & Symptoms: NEED CONSULT History: Lumbosacral transitional anatomy CT of the L-Spine without contrast done on 03/04/2020 At the [facility] Requesting Dr. Dakota Traylor Comments: Exam: OUTSIDE CONSULT NEURO OUTSIDE CONSULT NEURO 03/07/2020 11:41 AM OUTSIDE STUDY: Lumbar spine CT scan TECHNIQUE: Outside CT images of the lumbosacral spine obtained from the [facility] dated March 04, 2020. Image review with [...] interpretation. Electronically signed: Ольга Johnson. Transcribed by: [email or web address], User Resident: Electronically Signed by: ОЛЬГА JOHNSON @ 03/07/2020 01:03 PM Normal [facility] PHOSPHORUS BLOODon 0 Phosphate [Mass/Vol] 3.5 mg/dL Normal 2.5-5.0 The [facility] Comment on above: Order Comment: No: D o not add to previous draw Performed By: #### 4 1000, [id number], [id number] #### [facility] [address] [place] [address], [facility] POC GLUCOSE LABon 03-07-2020 Glucose [Mass/Vol] 97 mg/dL Normal 70-100 [facility] Comment on above: Performed By: #### 8 5499 #### [facility] [address] [place] [address], [facility] TYPE AND SCREENon 03-07-2020 ABO INTERPRETATION O Normal The [facility] Comment on above: Performed By: #### 6 2586 #### [facility] [address] [place] [address], [facility] RH INTERPRETATION Negative Normal The [facility] Comment on above: Performed By: #### 6 2586 #### [facility] [address] [facility] [address] *SARS-CoV-2 COVID-19on 03-06 [id number] Not Detected Normal Not Detected The [facility] Comment on above: Order Comment: The A ptima SARS-CoV-2 assay is a nucleic acid amplification test intended for the qualitative detection of RNA from SARS-CoV-2 isolated and purified from nasopharyngeal (CRANE MAN), nasal and oropharyngeal (OP) swab specimens from patients with signs and symptoms of infection who are suspected of COVID-19. Results are for the identification of SARS-CoV-2 RNA. The SARS-CoV-2 RNA is generally detectable in nasopharyngeal and oropharyngeal swabs during the acute phase of infection. The Aptima SARS-CoV-2 Assay on the Rupture and Beaufort Fusion system is intended for use by laboratory personnel specifically instructed and trained in the operation of the Beaufort and Beaufort Fusion system. The Aptima SARS-CoV-2 assay is [...] information. Performed By: #### 3 [id number] #### [facility] [address] [place], [place] [id number] [place] [address] MRI LUMBAR SPINE WO CONTRAST on 03-06-2020 MRI LUMBAR SPINE WO CONTRAST [facility] Department of Radiology [address] [place] [address] Patient Name: BITNA GRAVES : 1980 Sex: F Age: Race: NA Pt. Location: [id number] Patient Status: I Ordered Date: 03/06/2020 6:40:00 [...] narrowing Electronically signed: Yamileth Barragan. Transcribed by: [email or web address], User Resident: Electronically Signed by: YAMILETH BARRAGAN @ 03/06/2020 07:54 PM Normal [facility] Comment on above: Order Comment: Spina l Stenosis, patient with left s1 radicular type pain - has transitional lumbo-sacral anatomy based on CT scan Encounters Encounter Date Encounter Type Care Provider Facility Start: 06-25-2024 End: 06-25-2024 ambulatory Karina Rodriguez MD [facility] Start: 06-18-2024 End: 06-18-2024 ambulatory Karina Rodriguez MD [facility] Start: 05-29-2024 End: 05-29-2024 ambulatory JEROD DELEON Not Available Start: 02-23-2024 End: 02-23-2024 ambulatory JEROD DELEON Not Available Start: 02-20-2024 End: 02-20-2024 ambulatory Karina Rodriguez MD [facility]: [facility] Start: 02-13-2024 End: 02-13-2024 ambulatory Karina Rodriguez MD [facility] Start: 02-09-2024 End: 02-10-2024 ambulatory DAKOTA TRAYLOR [facility] Start: 02-01-2024 End: 02-02-2024 ambulatory DAKOTA KYMBERLY [facility] Start: 01-20-2024 End: 01-20-2024 ambulatory JEROD DELEON Not Available Start: 12-28-2023 End: 12-29-2023 ambulatory DAKOTA [facility] Start: 12-16-2023 End: 12-16-2023 ambulatory JEROD DELEON Not Available Start: 02-25-2023 End: 02-26-[address] JEROD DELEON Facility: Start: 12-29-2022 End: 12-29-2022 ambulatory [facility] Facility:[facility] Start: 12-22-2022 End: 12-23-2022 ambulatory [facility] Facility:[facility] Start: 12-15-2022 End: 12-15-2022 ambulatory [facility] Facility:[facility] Start: 12-01-2022 End: 12-02-2022 ambulatory [facility] Facility:[facility] Start: 11-19-2022 End: 11-20-2022 ambulatory [facility] Facility:[facility] Start: 12-31-2021 Transcribe Orders Stephanie Grubbs [facility] Physician Referral [facility] Start: 05-20-2020 End: 05-21-2020 Patient encounter procedure Zayda Frazier Facility:[facility] Start: 03-06-2020 End: 03-09-2020 Evaluation and management of inpatient ARNEL GAVINO Facility:[facility] Procedures Date Procedure Procedure Detail Performing Clinician Start: 03-07-2020 EXCISION OF LUMBOSAC RAL DISC, OPEN APPROACH DAKOTA TRAYLOR Start: 03-07-2020 RELEASE SACRAL NERVE , OPEN APPROACH DAKOTA TRAYLOR Start: 03-07-2020 Antibody screen ARNEL [facility]MO[facility] Comment on above: Performed By: #### 6 2586 #### [address] Plan of Treatment Date Care Activity Detail Author Start: 05-03-2021 Influenza vaccination Influenza Vacc ine (#1) [facility] Start: 2001 Screening for malign ant neoplasm of cervix Pap Smear [facility] Start: 1998 Hepatitis C screening Hepatitis C An tibody [facility] Start: 1998 Tetanus + diphtheria + acellular pertussis vaccine (product) Tdap Booster [facility] Start: 1995 HIV screening HIV Test [place] Start: 1985 COVID-19 Vaccine (1) COVID-19 Vaccin e (1) [facility] Payers Date Payer Category Payer Unknown [id number] 2022 Unknown [id number] 2021 Unknown [id number] 1980 Unknown [id number] 2.16.8 40.1.665859.3.579.2.647 1980 Unknown [id number] 2.16.8 40.1.638044.3.579.2.647 1980 Unknown [id number] 2.16.8 40.1.363682.3.579.2. 1980 Unknown [id number] 2.16.8 40.1.046035.3.579.2.8 1980 Unknown [id number] 2.16.8 40.1.070771.3.579.2.8 1980 Unknown [id number] 2.16.8 40.1.386595.3.579.2.8 1980 Unknown [id number] 2.16.8 40.1.304045.3.579.2.8 1980 Unknown [id number] 2.16.84 0.1.825898.3.579.2.9 1980 Unknown [id number] 2.16.84 0.1.208810.3.579.2.1258 1980 Unknown [id number] 2.16.84 0.1.575357.3.579.2.1258 1980 Unknown [id number] 2.16.84 0.1.529661.3.579.2.1258 1980 Unknown [id number] 2.16. 840.1.907784.3.579.2.196 1980 Unknown [id number] 2.16. 840.1.911091.3.579.2.196 1980 Unknown [id number] 2.16. 840.1.300333.3.579.2.196 1980 Unknown [id number] 2.16. 840.1.579088.3.579.2.196 1959 Self-pay [id number] Unknown [id number] 2.16.84 0.1.044950.3.579.2.593 Social History Date Type Detail Facility Tobacco smoking stat [facility] Tobacco smoking consumption unknown [facility] Start: 1980 [facility] 12-30-2022 Note Date & Type Note Facility 12-30-2022 Note [id number] [facility] Clinical Note 12-29-2022 Note Date & Type Note Facility 12-29-2022 Note [facility] SURGERY Clinical Discharge Summary PERSON INFORMATION Name BINTA GRAVES Age 42 Years 1980 Sex FEMALE Language Indian PCP JEROD DELEON Marital Status Med Service Pain Management Surgery Acct# Arrival 12/29/2022 07:38:41 Visit Reason LOW BACK PAIN Acuity LOS 012 22:22 Address: [address] [place] [address] Comment: PROVIDER INFORMATION VITALS INFORMATION Vital Sign [...] spine; Lumbar spondylosis Comment: PHYS DOC NOTES [facility] History and physical note 12-28-2022 Note Date & Type Note Facility 12-28-2022 Note [id number] FF The patient has been examined and the medical record reviewed. The indications for surgery and exam are unchanged. [Electronically Signed on: 12/29/2022 08:15 EDT] Sarabjit Blanco MD [Verified on: 12/29/2022 08:15 EDT] Sarabjit Blanco MD [Transcribed on: 12/28/2022 14:33 EDT] [facility] Medication management note 12-16-2022 Note Date & Type Note Facility 12-16-2022 Note [id number] [facility] Clinical Note 12-15-2022 Note Date & Type Note Facility 12-15-2022 Note [facility] SURGERY Clinical Discharge Summary PERSON INFORMATION Name BINTA GRAVES Age 42 Years 1980 Sex FEMALE Language Indian PCP JEROD DELEON Marital Status Med Service Pain Management Surgery Acct# Arrival 12/15/2022 07:50:00 Visit Reason LOW BACK PAIN Acuity LOS 012 00:14 Address: [address] [place] [address] Comment: PROVIDER INFORMATION VITALS INFORMATION Vital Sign [...] spine; Lumbar spondylosis Comment: PHYS DOC NOTES [facility] History and physical note 12-15-2022 Note [...] Anterolisthesis of lumbosacral spine / SNOMED CT 798537955 / Confirmed Lumbar spondylosis / SNOMED CT 878312383 / Confirmed, Active Problems (2) Anterolisthesis of lumbosacral spine Lumbar spondylosis Histories Family History: No family history items have been selected or recorded. Procedure history: Facet joint nerve block ([id number]) on 12/15/2022 at 42 Years. Comments: 12/15/2022 [...] Heart Rate Peripheral 84 bpm (DEC 15 08:) Resp Rate 18 br/min (DEC 15 08:) SBP H 148 mmHg (DEC 15 08:) DBP H 98 mmHg (DEC 15 08:00) Weight 118.90 kg (DEC 15 08:00) Height 172.72 cm (DEC 15 08:) , [...] Gastrointestinal: Soft, Non-tender, Non-distended. Integumentary: Warm, Dry, Ramsay. Neurologic: Alert, Oriented. Psychiatric: Cooperative. Review / Management Results review: Lab results: 12/15/2022 8:04 EDT U Preg Negative . Impression and Plan Lumbar Spondylosis , Procedure explained to patient along with risks of possible complications and patient wishes to proceed. [Electronically Signed on: 12/15/2022 09:04 EDT] Sarabjit Blanco MD [Verified on: 12/15/2022 09:04 EDT] Sarabjit Blanco MD [facility] History and physical note 12-14-2022 Note Date & Type Note Facility 12-14-2022 Note [id number] IFF The patient has been examined and the medical record reviewed. The indications for surgery and exam are unchanged. [Electronically Signed on: 12/15/2022 09:02 EDT] Sarabjit Blanco MD [Verified on: 12/15/2022 09:02 EDT] Sarabjit Blanco MD [Transcribed on: 12/14/2022 13:35 EDT] [facility] Evaluation note Note Date & [...] Records Found Hospital Course Note MR#: [id number] [facility] Pt. 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) Procedures [facility] WEIGHT MANAGEMENT SERVICE REQUEST LVL 3 EST PT, LOW MDM, 20-29 MINUTES Jerod Deleon MD [address] [place] [address] [address] [place] [id number] Referral ID Status Reason Start Date Expiration Date V isits Requested Visits Authorized [id number] Authorized 12/31/2021 12/31/2022 10 10 Additional Source Comments INFORMATION SOURCE (unrecogn ized section and content) DATE CREATED AUTHOR 05/28/2020 [facility] DATE CREATED AUTHOR AUTHOR'S ORGANIZ ATION 03/11/2023 [facility] DATE CREATED AUTHOR AUTHOR'S ORGANIZ ATION 03/11/2023 [facility] DATE CREATED AUTHOR AUTHOR'S ORGANIZ ATION 02/11/2024 [facility] DATE CREATED AUTHOR AUTHOR'S ORGANIZ ATION 05/31/2024 [facility] DATE CREATED AUTHOR AUTHOR'S ORGANIZ ATION 07/02/2024 [facility] FOR RECORDS PERTAINING TO PATIENTS WHO [...] BE BASED ON THE PRIMARY CLINICAL RECORDS. [facility] [employer], [facility]. provides no warranty or guarantee of the accuracy or completeness of information in this document.
--- NOTE | 2024-07-05 07:57 | P.CN_ITS ---
Consult Note: HPI Data of Consult Patient: known to practice within the last 3 years Consult date: 06/18/24 Requesting Physician: Dayna Bustamante NP Primary Care Provider: Jerod Paiz MD Consult Narrative Reason for consult: low back, bilateral lower extremity pain Narrative: 44yof who presents for assessment. worsening low back pain with radiation into bilateral lower extremities. imaging shows disc bulge at l5-s1 with moderate canal stenosis at S1-2. continues to engage in a series of provider directed home exercises for >6 weeks, without benefit. uses otc nsaids and muscles relaxers as needed. denies adverse med side effects. recently underwent bilateral S1-2 TFESI with 50% improvement. continues to have moderate to severe SIJ pain. cc:: CC: Dayna Bustamante NP Review of Systems ROS Status of ROS 10 or more systems reviewed and unremark able except as noted in history and below Musculoskeletal Reports: back pain, extremity pain and joint pain PFSH PFSH Medical History PCOS (polycystic ovarian syndrome) ?E28.2 - Polycystic ovarian syndrome (ICD-10) Low back pain ?M54.50 - Low back pain, unspecified (ICD-10) Lumbar spondylosis ?M47.816 - Spondylosis without myelopathy or radiculopathy, lumbar region (ICD-10) Surgical History History of delivery ?Z98.891 - History of uterine scar from previous surgery (ICD-10) H/O tubal ligation ?Z98.51 - Tubal ligation status (ICD-10) History of carpal tunnel surgery ?Z98.890 - Other specified postprocedural states (ICD-10) H/O arthroscopic knee surgery ?Z98.890 - Other specified postprocedural states (ICD-10) History of lumbar laminectomy ?Z98.890 - Other specified postprocedural states (ICD-10) Meds Home Medications and Allergies Home Medications ?Medication ?Instructions ?Recorded ?Confirmed ?Type baclofen 10 mg tablet 10 mg PO DAILY 02/06/24 06/25/24 History ibuprofen 800 mg tablet 800 mg PO BID PRN pain 02/06/24 02/20/24 History losartan 50 mg tablet 100 mg PO DAILY 02/06/24 06/25/24 History metformin 500 mg tablet 500 mg PO BID 02/06/24 06/25/24 History zonisamide 50 mg capsule 100 mg PO DAILY 02/06/24 06/25/24 History hydrochlorothiazide 25 mg tablet 25 mg PO DAILY 06/20/24 06/25/24 History Allergies Allergy/AdvReac Type Severity Reaction Status Date / Time No Known Drug Allergies Allergy Verified 06/25/24 11:12 Exam Narrative Exam Narrative: Psych-alert and oriented x 3. Attentive and appropriate, constitutionally normal, displays normal mood and affect per situation. There are no obvious deficits in memory, reasoning, or intellect.? Skin-no obvious rashes, bruising, erythema noted to the patient's area of pain.? Extremities- extremities are warm with minimal edema and palpable pulses. Lumbar-tenderness to palpation noted in the lumbar spine and paraspinal musculature. Pain is elicited with flexion, extension, and lateral rotation of the lumbar spine. Range of motion is diminished with these motions. Facet loading maneuvers are positive.? Strength-noted to be unremarkable with the exception of decreased strength rated at 4 out of 5 in bilateral quadriceps femoris, anterior tibialis, posterior tibialis. Sensory-no notable sensory deficits in the bilateral lower extremities to touch or pinprick in all dermatomal distributions with the exception to decreased sensation to the bilateral L5, S1 dermatomal distribution Sacroiliac - tender to palpation over bilateral PSIS. Positive Ovn's bilaterally. Positive thigh thrust bilaterally. Coordination remains intact.? Gait remains non-antalgic. Assessment and Plan Assessment and Plan (1) Sacroiliac joint disease: (2) Lumbar post-laminectomy syndrome: (3) Lumbar stenosis with neurogenic claudication: Plan 44yof who presents for assessment. failed conservative measures, as noted. imaging reviewed, as noted. given symptoms and imaging, prudent to attempt bilateral SIJ injection under fluoroscopic guidance. she is in agreement. meds reviewed, no changes. follow up after procedure.
== END 2024-07-05 07:43 | disposition home or self-care (01) ==
LOC: PM 07:43
PROVIDERS: PCP Family Medicine; Visit Provider Nurse Practitioner
DX: M53.3 Sacrococcygeal disorders, not elsewhere classified (principal); M96.1 Postlaminectomy syndrome, not elsewhere classified; M48.062 Spinal stenosis, lumbar region with neurogenic claudication
CPT/HCPCS: G0463

== ENCOUNTER 2024-07-09 07:29 | Day surgery (SDC) | payer BC, SELFPAY ==
--- OUTSIDE RECORDS SUMMARY | 2024-07-09 07:35 | XMS_ITS | CCD ---
Author Organization [facility] Care Team Providers Care Cutter [place] Name Role Phone GAVINO, ARNEL Admitting Unavailable GAVINO, ARNEL Attending Unavailable MEENAKSHI SAMMI A Referring Unavailable NADERER, JEROD Primary Care Unavailable MA Procedure Practitioner Unavailab le UNKNOWN, PROVIDER Surgeon [...] Propensity to adverse reactions to drug (disorder) [facility] Repository (1 source) ALLERGIES NOT ON FILE; Translations: [ALLERGIES NOT ON FILE] Propensity to adverse reactions (disorder) [facility] Repository Problems Problem Classification Problem Date [...] Range Facility Orders Onlyon 01-18-2024 Orders Only [id number] Binta Graves 1980 F Date Provider Department Center 01/18/2024 ZAYDA MARTINS ONC DCC No family history on file Normal [facility] Coding Summaryon 03-03-2023 Coding Summary HTMLBase 64 CvfsyxwtDNo5tDg+PGhlY WQ+OV3CAYBaS75drOWtlJ 9pN9DDVMbKEvaoAZCEHBy PUfQsgrWrLB2bjTTyKRVx IC8+YM9xPBYiDcmgfDEnu 1N2xBR9F67rdk2nLIelkK M9AXXmScYeoyete9lruLz 6IDcuNmluOyBt FESizE76WSZ4eT47Ww95m PRkqQRim6ybcZf2CwZmQB DzQPD7tZbdNGaxu6TwERF oN73suYIww6B7 HHDicPubmEHlGfIvhAN3g Y4kCQarkzxxg5insxjzQq f8hf55aDSnx8E2hED8P9L ylbO2PYMbbRNd FndufLSIaN5lgfcmx5qnj uyrYtHzRMUtVXk0HVb4FW WlpBtwGuZlFP99MAI9DRN rxtJsQ8JxSXHk wMlhPzM9l7G8Eh0VN2XJP svoJ6PYKISZAXzcvQW+PC 84ee10A0SxPcdqCdn1QRD sYNT0iEJ2dO6r NWMiARlgf4A6kDU5W1Bxu gNusi2wf8eoLBEqIEzcC8 5giTHea1D7TXYfeJQ5GJD gbOzsKuQbvS08 Oyc+AEVjyReyn4NlXblqi 0goc4ajyRv1MykpWIUvma QmhZgvDVF3e3ZcDw7qCZF krOO9qHQ5dJ9g ZnZmKcG5AXjlE947WzDuv XGqMbieG83cM1GkrMZ+PH LeXty0EGResHpbUR4oN6B hZGRpbmctbGVm oRqeFZ8gAECvagttLFAro T6iJIPkF0w8JvRqYzA7QC aaE7EfMHIjcfqiId13fF3 jFrGaWfB9XWqv S8NvjbV9NFOpaQRdHFfgQ VX8S25lz2P1CCWhSOLxTO N5nBL1yQ8oaXfodjzzgDG mdDsgdmVydGlj QZigTIuoH302UFRezZgpY kNvZGluZyBEYXRlOiAgMD YvMDEvMjAyMzwvdGQ+PHR pRKJ0wNgoGGDf xQEeBYsdJe9foZofuBhnR G5eMHNfjuvnBBEvuI8tXE GsmYFjaLpxWL8gQTKgeca pr496JjGcKBC3 CLIzqMJmI9KgoT0nSfRvE CNlZXDlD6LhkJQuIEsxD8 35ZGwkCjU3MUHhimLzP9G sLWFsaWduOiB0 r6J4Yy6Yw8YzmnmaQ5Sjs UJkOgWfXmpeFLx9Y0TiNw wvdHI+HV16AJFaFA37HEm 6BRQ3dYwgVZjk YKJfI2EnqV0rMyMjUTRjU GRkOyc+PHRhYmxlIHdpZH RoPScxMDAlJyBzdHlsZT0 vSe5uULItROCb iQsajUEvWqFev7pqQXKnX BtnRW3rvAlaZ1RpxWD7ZW Rnr5v0Sn79D31yJ4MshSQ +HJLtaMJ0xJJ9 jE1kTtChCbW7RVodD318R sZdwBJyHxgrg0vaq0fmiX t2FlZ0SKFddbWwmVfoSRS 5h6KmUx94B13z IHdpZHRoPSIxNSUiIHZhb Dvmbw0liF5mGr9+PGNvbC Z7hYP1vJ9tYuGkWnQ2KSa cU836XrVkzTQk Vhllj7atc6ylyZu5OeGpQ HKijdEwbUwcZHY2k1KbJo 78X8XfyAdzj8EkYpf4rw4 0aIFvk2L7aKL6 H4FqVYYrbzqhiXZasXcbX Z9vDIHgpjcqIRFcsS6xHF FzT4i5FgRpEuZ1RQqaN6V zseY2CTPgwOXm IMEnnVLWhW5wudfpz6qas ojeWiJhNEPxMSp4JGk3KU LlrVlwRtNjTUN0OlR2NNN 8lVMxiV3fcAlf mwaytL3xRos+RYP7eKUaa KCOJS7dFvhgcUJ+PHRkIH N8aMcqJUqjXTGeoT0yKKU dV0n4ZjSnLcO6 JCxdZ5XvzkO9EIDusFGmZ OItgFNWvW3wsdglo5swfw tkPiFpEWMiIBy9XHe7IKU saWduOiBsZWZ0 SpN4VQT2gHCxgT3ggPepl iqgjI6iCre+QmlydGggRG U8XCv2Y1IzCay0MHRheTe fOI6dwPUaDPlr To9vcPygtHmxDT0uFRPdm qbhf550ZwZtg8jiURGveI OgDUzgAHA2Y58hd0E6IRU kWLLeBNZ6nQM8 iD9ofFvipiewwTDtmTrwr fGuwLihZAfpCIjrT249ER GvrTqnAkBcIUj8V3UcTqi 9VKPqhKmmUW5c jPYhYSouHt8caWzanWraQ K5uZETlembjo742RsWax0 gxQTKxoJXrRZrsDNI2T21 bb0F5MWZiUKQd LDU5gTZ7jJ6uoMokevlzl GVmdDsgdmVydGljYWwtYW bwB161BIZsnUrhQoTgwZe 8M7YkQcl9HNDw lHfhRJ2vuSYoCRbbTc3xa HvyuVlhBH7pPJPuhoajv9 27QbRzk6jiRQTmxSAkSVn kFAB2J61vd0Q2 SUSbBXCmEJZ1pVL4dW8ag GlnbjogbGVmdDsgdmVydG mtDFtrUByhD549ZORiaAr nPlBhdGllbnQg QAzeTUh7N0RgAjhrrBM+P A53SPTsNH44oCYvzCIbo5 qdtSg4OaSgHPEwFUZ0yPt iIWozh5LdRONi D23jgEFrf7E4SKLzwHgmh BVdLqUgrZM4iV7mUWsdti dfo5vujgmfVhhdq1jsag2 8iT41E69zYXdd ZHRoPSIzMCUiIHZhbGlnb u9rcG9oWu9+KLOtrIV4jN X4pE2rWHUmZoP3IHbxG79 9InRvcCIvPjxj m6iuk5lmmBz1SkV9IOVsk jHecPlpVVJ6q4HrNo20O4 9sIHdpZHRoPSIyMCUiIHZ qkHxflo2jeI8b Ii8+VCGfcBQ8xMD5hB0cK rUfBgX2MTkwA335OsIidE BwFxskQ93bD9MehKT+PHR tZfy7MHEslIwb ZR0poUZzPPwdDg5tETE1Q yUaHmGpYDlpK7TrPLSirk oscsmmgNO7NWOpPPHjfU7 0Dp7foVdeYOPz lNXBeA2uodpsh9dsyprwO aLpKPCbMLr4FWj1FFMiaI dnBhLzEPA9DmN5QSF2mZW dnR8pbQplrhwn vR6qO4KgZOZhckphKe66b D9sBqQlYfU8ZRxoBhz+TU FSVElOLCBFTElaQUJFVEg vUC8NUA31MH08 pEPen5U7nQT9N0UwKNIib nxvmqgunBG5LGXePLYceK 72kSLxARcsDh1yq3X6w11 6MLBaXGHnvT44 Kg1gaXblNCDqxDDDtO5tb gesj7mcwyhsCcRsMFCrQV e7JGw1PPGbkQpjYrZpAWU 3FlQ0TGP2gPSu cJ9qlGndxfgviA7cBgd+M YaoECKuPRr9SYcvvND+PH IbGRW2hVoeTRxtOIXwkI6 mJQXqQ1q3BaWv KqI2XDnvM4DdKRApgqgrB l11aG8hZsLiLuG6KLaaN3 VrddZ0JFPolGKeWVwdIFY 5D36eu0G5VCIw WOOiPQR6vCS7hU7rtVmvq jogbGVmdDsgdmVydGljYW roUXfyY807UTIqwBxrUeR dAKpcJTKkCY24 OX06zFNte0H2yHZ9N8MpJ ESllnxqsgzeiJM2BSDuND TjeG78aQKkHLniAs0bj3J 8n133MUKfYDQg rW64In4ceIazICCesDEMy R2ancgsp1vfctapUkMhBI AzCMf4GMn5RNRoeHgfLdX rUTN0PkK0MGF5 cYLloV1moLezajgrjP4xG yc+WeTBPWkCGY54XA61bQ Ind7Y5vJB7A7ZhTCWxqrp tgmsgyOI6ENXe CUCgvC72dAUfNAbjFz9wi 8S8a119LFDvJTExvX84Lc 6svUjlACJrhGLIlA9aagr op4ludomiLgBo LISqDLq2NSg2TBDqsFqaJ lUfEKP3VyV9LZW0nJUhcA 9ifHtpeqqopT2bPyg+T1A 5J9KcVnibyCM+ TT20BDSvYL92wEApaHSyx 4rorGs4WgEoPRLgAKI7mX gcSTlmw2DeJJYlC67nfTZ nu9Y0OSJqvKeq oALgYlTyzRZ2oN6xONybm rszv1pxhwluNasyp0jvhj 77cN26Z47fGRdhQZOtJKD zMCUiIHZhbGln nx4gxK1bUn1+EXCdfYP0n IV5wS8qDdBxGsQ4NYbrS9 46DtAlxKEoJrtsc6kjy0z ieRc8QuYcJJXq ecYtkXwoAAK0h4UaRt95R 29sIHdpZHRoPSIyMCUiIH AcaUhofw0omZ5eXa6+PC9 pu6ivry35eI80 dHI+CLYhRRO7zCegAGqyF ECshJ3gBEehUoX6JGTcDf MzkO74cVVmPShfNh7fjUw jfNnrOU0pPWVv jfzkp521IaChm1lfTYTyp RIpYCfbVLU7U12tf9V1ID SjQQInKFO6lQD0rR2vxVq nbjogbGVmdDsg zbKgfEgwZMycKAfvB713T QEsyZbvTnOzcKFyJ3tmzo UUQX7iTzavqJF+PHRkIHN 0eWxlPSdwYWRk jT7nKKXvQ4w6XaDzRlU0Q NkkH9MhqpW1FOUmbNXhGE EhmRIZfY9pmhmnw9gxwnk gIzAwMDAwMDt0 MWw7YYUgxWyrHkHtZID0T gD8MAT1xVQdxG0ciLxruu fefR6hHpp+RklOOjwvdGQ +GIFlGLL5aAwm VRjaRHTdqY5aHGUvQ6n1T bWbUhR4XLtkC6UprfV7IY LghPIkRMVxnQXXvZ0pmcj qs8agqzleZcOr CCYeXSl6OYf8XIConPorR zToOZO4FtM4UCE7jSBifW 4stItznjxqdY4fAqh+TVJ OOjwvdGQ+PHRk ADB0fNdtFVxmPETiiY3nM LZxY7r2MdCdWuQ7WNtsE5 JdzzM1WFReeQErYXRckXW CuM0jtpqyq3xv qtstJvXtDIItWFn5ZPk1F SGqlCgbShAdZPG2UvR6YT S4cCVxbP8wmUutwirxyA8 wOyc+ADY1BPQ2 OM54TG44J7XxBimvkHLsk +PHRhYmxlIHdpZHRoPS nvTVYyXbJqfSboRB2bWa6 yZGVyLWNvbGxh cHN (more content not included)... Normal [facility] QUANTIFERON TB GOLD PLUSon 0 02-27-2023 QuantiFERON Incubation Incubation performed. Normal [facility] Comment on above: Performed By: #### Q NTTB #### [facility] [address] [place] [address] [id number] [address] Shon Barger QuantiFERON-TB Gold Plus Negative Normal Negative [facility] Comment on above: Result Comment: No r esponse to M tuberculosis antigens detected. Infection with M tuberculosis is unlikely, but high risk individuals should be considered for additional testing (ATS/IDSA/CDC Clinical Practice Guidelines, 2017). The reference range is an Antigen minus Nil result of <0.35 IU/mL. Chemiluminescence immunoassay methodology Performed By: #### Q NTTB #### [facility] [address] [place] [address] Dr. Shon Barger HEPATITIS B SURFACE ANTIBODY , QUANTon 02-26-2023 Hepatitis B Surf AB Quant 14.2 mIU/mL Normal Immunity>9.9 [facility] Comment on above: Result Comment: Stat us of Immunity Anti-HBs Level Inconsistent with Immunity 0.0 - 9.9 Consistent with Immunity >9.9 Performed By: #### H EPBSRF #### [facility] [address] [place] [address] Dr. Shon Barger MMR IMMUNITYon 02-26-2023 Mumps Abs, IgG 156.0 AU/mL Normal Immune >10.9 [facility] Comment on above: Result Comment: Nega tive <9.0 Equivocal 9.0 - 10.9 Positive >10.9 A positive result generally indicates past exposure to Mumps virus or previous vaccination. Performed By: #### M MRIMMU #### [facility] [address] [place] [address] Dr. Shon Barger Rubella Antibodies, IgG 1.73 index Normal Immune >0.99 [facility] Comment on above: Result Comment: Non- immune <0.90 Equivocal 0.90 - 0.99 Immune >0.99 Performed By: #### M MRIMMU #### [facility] [address] [place] [address] Dr. Shon Barger Rubeola Ab, IgG 116.0 AU/mL Normal Immune >16.4 [facility] Comment on above: Result Comment: Nega tive <13.5 Equivocal 13.5 - 16.4 Positive >16.4 Presence of antibodies to Rubeola is presumptive evidence of immunity except when acute infection is suspected. Performed By: #### M MRIMMU #### [facility] [address] [place] [address] Dr. Shon Barger VARICELLA IGG ABon Varicella Zoster IgG 1057 index Normal Immune >165 [facility] Comment on above: Result Comment: Nega tive <135 Equivocal 135 - 165 Positive >165 A positive result generally indicates exposure to the pathogen or administration of specific immunoglobulins, but it is not indication of active infection or stage of disease. Performed By: #### V SARAHI #### [facility] [address] [place] [address] Dr. Shon Barger MAGR Intraoperative Recordon 01-03-2023 MAGR Intraoperative Record MAGR Intra-Op Record Summary Primary Physician: Sarabjit Blanco MD Finalized Date/Time: 01/03/23 13:44:55 Pt. Name: JELENA BINTA KATIANA ManriqueO.B./Sex: 1980 FEMALE Med Rec #: [id number] Physician: Sarabjit Blanco MD Financial #: [id number] Pt. Type: D Room/Bed: / Admit/Disch: 12/29/22 [...] Cox MA Role Performed Surgeon - Primary Spa Director Spa Director Time In 12/29/22 08:38:00 12/29/22 08:38:00 12/29/22 08:38:00 Time Out 12/29/22 09:05:00 12/29/22 09:05:00 12/29/22 09:05:00 Procedure Radiofrequency Radiofrequency Radiofrequency Ablation(Bilateral) Ablation(Bilateral) Ablation(Bilateral) Last Modified By: Tiffany Tyson RN, Rebecca L RN Votino, Rebecca L RN 12/31/22 09:51:06 12/31/22 09:51:06 12/31/22 09:51:06 Entry 4 Entry 5 Entry 6 Case Attendee Eveline Chen RN, Regina CSFA CST Mitchel, Bradley MD Role Performed Spa Director Scrub Personnel Anesthesiologist of Record Time In 12/29/22 08:38:00 12/29/22 08:38:00 12/29/22 08:38:00 Time Out 12/29/22 09:05:00 12/29/22 09:05:00 12/29/22 09:05:00 Procedure Radiofrequency Radiofrequency Radiofrequency Ablation(Bilateral) Ablation(Bilateral) Ablation(Bilateral) Last Modified By: Tiffany Tyson RN, Rebecca L RN Votino, Rebecca L RN 12/31/22 09:51:06 12/31/22 09:51:06 12/31/22 09:51:06 Entry 7 Case Attendee Froy Ramos RT (R) ARRT Role Performed Night Custodian Time In 12/29/22 08:38:00 Time Out 12/29/22 [...] Agents (Im.270) Povidone-Iodine Prep By Vida Figueroa HOT ROLL LAMINATOR Prep Area (Im.270) Back lower Prep Area Details Bilateral (more content not included)... [facility] Coding Summaryon 12-30-2022 Coding Summary HTMLBase 64 YestxqbhVVh7iQt+PGhlY WQ+RB6WHOToR54hiXSgnP 6ZV2bSUX5VMZNEYHLBRD0 QYX0htXQ5DIyfS2ThqtAr QkvphOXzDP46AGy5TMQ6w SkgRWmlzE8reVFpV5m2Qd CePD29tI78MIcdKPXbPqM 3LjZpbjsgbWFy R7yqAiMrlSTtLgz+PHRhY mxlIHdpZHRoPScxMDAlJy XqlGuwKQ4eWt5kVJMaOUJ vbGxhcHNlOiBj x9teFWWcYDonMS3xeZxpV 8KekPG3ISYgm3q4Uu62dB I+RDZkMEV9dUgoKVred89 3NrFji4tgTHP9 uFFfECiaKDF7R42zb2R5O WEnZMGhDJJ0hHU4sD4rzY pwhpyeY1PhoMCoUnH6AFP 4uBOgkE4njWuy plsfxR5uXsa+A55KCS1KF KAECL7ILur2D9NtVlouqY I+NU26WKAlKU54zWKrgTD ui6fwgKl9JyHo FEQzKST2jGjkBKjfq0GiY UPxY57cbVNqg8X4QPApuV ujzZRoDpSfeJU3tB9gBMd fxduxk8lydpcm Bmbaf5jdkq32vZ00K73yN GbhEKUjBZZ5OERfWTZdyR znhi9buJ3jUe2+OOttd8p kn3pifYi9PgRr DWLnxbQshMiwLNR9a0BwH q51I4GptFaqj2OdElb1dg 72mDBrb9O6qEC1VKaiLTV fsA8xBYfmUvS5 YGFmGwXmxA40lQZzMTifQ k2wrSafzJuvOV1aFNUoig tsQLPqaG3hLNKytJYopIi iDD1dVNZkzcvf q100CtDdASP7HHLiwGZyC 2NtqB2yDwHeYELiZKDdC9 ClyFSiIVloY496UKkqKjQ 4FKFyrrRtJ4Zd QXCjtUodInG2f9R5Ez8Is 2OwmrozTBC5LQcxIMXgXn IiMsVcCvK4M6MeDyg4MHO vpIkiRZ8dY9Xm WBFxhncjbleqpKF8MLQyF WCgqX90iKEnBIfgDy3tx6 G4c367NCWkMROqvI29Gt6 udDogMTBwdCBU wU3tqhquy2mclvkwByZhV KJrRXq5XDo8WKVjbHkkZd LvHOP6UlR7EBD0gAEigK9 ivMxjijjvbQ8w Oyc+W79whO0wATW6HYZ1x iemNTBkdpRlDX05TR35I3 RyPjwvdGFibGU+PGRpdiB ieFsgXX7mLkIh j1ajg4ZlKOaaS2HmOBKaY PhvBjx7XVYyQON9vRP4wU 3gJTHoVSccv9R8cWM7V2W gspEtpp7dx0vr BWPoJFwtM57coMIkz3W9H VUadEQ2JCYwdJsvWqJrlO 93Oyc+RDRinVswj3SqLra if4npe5ijpDd5 VrEpBSKbvaElqDdiYNA2s 8FsCz48R56cOJjdEVMlJE VvNJTtHKNtcGgpqi6pwB6 wIi8+PGNvbCB3 sND3lV8kEXTfHqN7VFurE 791EbPrwBPtJltnv0qkm6 qvaTo4XzLwDZSigmGrpLv ePTK2t6MoUu72 Z09jSQmlDLXlBTOvBEKoQ CJxfXipxp2zeF3yZs1+PC 9sz5owoo42cK54wMP+PHR qBLQ5dYmtUQgz NSVoiS8gSCvwSqN2RDZkB oZuhG69yVMoIOyhJu1soQ doiZxnUX5xBFLspchai82 8RzEmu9wySHUa oYAcPDueLXE0Q24fi1L9X DLlRBJrZYM8oOD5uY9vpD lnbjogbGVmdDsgdmVydGl nJMnaUWwyL520 IHRvcDsnPlBhdGllbnQgT cGjXVb1S8PjEhq8IAZmwC aeTG0uqBOqDAgjPt3scZm qlYitAX3iVCYv rknqz991MdMcv5qbXJIzx KZnCJitRPF1O39mz8R0WR BkHJKsISL4vGN4xM8tbCg nbjogbGVmdDsg dfLjhOcsKWmiOPteR934W HRvcDsnPkJpcnRoIERhdG U8YZ43YZ02qJYhw9U1vPC 9E0ZePYTzqssc fhwbfDQ4OZBxRZQevX74I o7lnAmqGx7bLAWsKJP1YO IvnMZfV4AwaT0sXwWjWOX wOJYvY8MesVPi ATmvS753QNxmBqV2VVWop oLwY1BvYXMmvQsiZnL8f3 M8Lf6SH9S8FV99SS88wMZ wy5H6uPS1D7Cb WSQzttufqhjjsXQ3VDYmE HEqzB54Du0isKvxLb5vNR ObVCH9NKOngXIqY8KkjV6 yOiAjMDAwMDAw T7UgxKPtTUkxT083BNgaH uX1WYNvkdToC7ZjYFCfsZ ypDxW9u0N6Tw2HEPa0NM6 7FC66aVSnm7L0 rAB7R9WtMOFwlzliyvwfg GN8WTIlVZYgkJ28Sn6dqI fxEd5mCWHqLTE7TPDmoMQ yD4LddK2lZpXw EPSpWGXzI5FviPTgVSewY 280QXwfMfQ3CUQxllRvS9 QcNVJlrNayAiC9m2R4Pz3 RYBAyIX21HIK3 aGR9RH58AX92F9SwZszno GFibGU+PHRhYmxlIHdpZH RoPScxMDAlJyBzdHlsZT0 zGy9cWHQpSNDg fNtdsBEcJfXxn6eeKMGeK LwtTI3fmFupE9AwpPD6MI Sfz0p6Tp91L26sB1FiaSU +FLYqmZX8cOO1 pD8iYhIdIuQ8CPrsX160X sDuyUXdUqofz4qwl0duiV k0VdY0BERoiqSwkEmcDEM 0k8TxOz44O20w IHdpZHRoPSIxNSUiIHZhb Anfwm9lwX3hIz7+PGNvbC H3aBY0lZ0wBbMjMiO3KHb tM471AqBzaWZm Xjjbb0aoi1ebgFs8TeKnQ CEibpWvlQbqNRN0j6TdRt 96L4StxRlda7WrCuj3tr6 0uXCkd5W6iVV8 U8QpFPRjooruvDGzqZjmT B2jWVFpmofxWVZbvB0mAE KiG5x6ZhJrMuX0HTrzW2M iysX7GZOszWZm HMtfZCL2H94hw8P4ULUyR NMsUMR9zTW5fU7ndEshnm ogbGVmdDsgdmVydGljYWw uLFcdE832AUHy sGldECSmdJ1zVUSuwRCwj OicUG6gLJKbtnebIh3PLe RJTiwgRUxJWkFCRVRIIEF OTjwvdGQ+PHRk PLL0jJdnXLppZWKjnU4tG OLsR7i4MuUmCzC9RQmtL3 JpTJXivrmtMy69yM1wXeA qJiH7OMtyE2Ca rqA1RECklNIgHLufTZE5I 43jb9Q0VVMqSLAjDHE7nH D3zL2ptHpzuwskzTEfuZt gdmVydGljYWwt OMzkP825VHYlmMxiEaW2C nXcIzF5PCM5Y2MzCii6OL SceZzuGI4ukHYwJMwlQo6 mkUpkyWgnJP9m FWHahnbwPSBvyZ6gTYMbe ZVruRlnKM7kVTWgnciez1 68HaYmIEJ6HVWwkOZnQ3G euG3mHlQvYTYa DNEhG7TaiBWpKTjpM142X GypMcV0EHYgsuHtM5NeUA VarBnjInB5n3I2Yc03UdA ZZWFyczwvdGQ+ YJTkTPT9gIdrSMsaXHMhi C2jOLJpC5b3TnNhDxC9OD pjY1FfMMSivjuqVk96gY8 rOoIkQxO1WAfa U7YyaeP1PVPcfVCnGXatY VN0M13sl0J0AEPzQQMoOA K9oAB5eV1apMeiqtpetGZ mdDsgdmVydGlj BWxxBFtsU525VOHmaUkdU kZFTUFMRTwvdGQ+PHRkIH R3iEhtYYmnJDXtmT9nZHS kC7v1UkAhFpQ4 LRarX4QgRSAacstrMt36l R8gVsUtJdL1ULyuJ0Cfmd G2YEQepSJyCGqlNOW2Z17 yc1T0SRNvASYb WOR7bZN9xX8qwCrjhzsna GVmdDsgdmVydGljYWwtYW suO603ZWRlsIxtTiEaxUI VgGDdYUZ1JP23 GO05V9StIsdghJFhaSP+P HRhYmxlIHdpZHRoPScxMD WhRlWiqUofRR2xZx5wPHG yLWNvbGxhcHNl QkExz8abEJSxAOutKL7nl LbqN8LiiSV5YSBcn2r2Gs 81F42yW2DsnFH+PGNvbCB 9dKC1eC7nHyFn JbJ0QBvxX629KyXbbDHgF qbpj1hnu8rjoLj7GoEsSA HtacXoxVwoYCQ2r7CdHv5 0D90bCWoaUXUi OTBwUQMeSWEnvKecxy7qj G9wIi8+UGVdfWS6vBZ6dZ 6jAyGrNuQ9SBgtW845MzU keHGgSnkfW86o U5OfuYV+DCViBpf1ZIRej BkaND4ndUKkWUvpEn9bGN A0NcEwOiGkULihN9JoVFF pbmctcmlnaHQ6 GGGlUYUskM52Dl0ivRugM e5nUMLlVYZ5RLGmuBAzS0 GqsH1eUwQdXUApJFJbJ3S esBEpNDpwG133 ZAtrVvM3LQDolcZxR6IuN OEhqXqdYyN0v7R2Wx2SaV qacGMuPD8tDqNqSFn6H1J fByw8XWMjyZlg FO6cjQZkJAkgHw7ftEsxg CqoST4pIMFuzlamh649Wo Qgc9poQBRazFFmTOttOBZ 0C89th1A6PCPk CDDbWHT0sUH2dN5nuFaps jogbGVmdDsgdmVydGljYW rcONrxB014WBWbiZjbFpI CLfa6G2JjPyl3 MMXipDhePD1jcMBcEQwsR h9twJsncGplMH2fPRYqnf oqn737JzNzi7qoVYIejMK zMMjwUNG9S94l f2V8MUPbOHAsNSU4jTF1u X4rbXjwyzohhSKwpIyxye VfuBeeEBstVSqkG051EKT luGtbFe7NKpg1 A9RbHpl1KCJwgQriII3fo VZeZUmsVh1hhKahyJxeWT 9fZEUcklwfb223JyAel8v kIDEwcHQgVGlt RXV0I41fe1X5PIGbZVOvR ET6eQA9tL7jqPgseeekdQ VmdDsgdmVydGljYWwtYWx mS603RHCjrLoy PlBheWVyOjwvdGQ+PC90c m39G9DeMouvWrw2OWHyPQ R4vXA5mL5oCIWwQCqmr6N 8aEA0X3NkrnWk ci1 (more content not included)... [facility] Consent Formson 12-30-2022 Consent Forms [id number] [facility] Anesthesia Noteon 12-29-2022 Anesthesia Note Patient: [...] on: 12/29/2022 09:33 EDT] Jalen Hagan MD [facility] Anesthesia Note Patient: BINTA GRAVES Age: [...] All Problems Lumbar spondylosis / SNOMED CT 682593210 / Confirmed Anterolisthesis of lumbosacral spine / SNOMED CT 563624116 / Confirmed Histories Family History: No family history items have been selected or recorded. Procedure history: Facet joint nerve block ([id number]) on 12/15/2022 at 42 Years. Comments: 12/15/2022 [...] Oriented. Review / Management Laboratory Results Plan [place] [employer]#( A) physical status classification: Class II. Anesthetic Preoperative Plan Anesthesia: Monitored anesthesia care. Anesthetic plan, risks, benefits, and alternatives discussed with the patient and/or family. Patient verbalized understanding. Informed consent was given. Consent was signed by the patient. [Electronically Signed on: 12/29/2022 08:45 EDT] Jalen Hagan MD [Verified on: 12/29/2022 08:45 EDT] Jalen Hagan MD Normal [facility] Inpatient Patient Summaryon 12-29-2022 Inpatient [place] [address] Patient Discharge Instructions Name: BINTA GRAVES : 1980 Patient Address: [address] [place] [address] Primary Care Provider: Name: JEROD DELEON After you are discharged if you find you have any questions, please, call [phone] ext [phone] to speak to a nurse. Discharge Diagnosis: Anterolisthesis of lumbosacral spine; Lumbar spondylosis Prescription Information: If you have been given a prescription for narcotics, seek immediate medical attention if you have any difficulty breathing or any sudden status changes such as confusion and sleepiness. If you or anyone you know is experiencing suicidal thoughts, mental health, alcohol and/or drug addiction problems; contact the [facility] 25/04 Crisis Hotline -Text 4HEHC so 327304. If you received any narcotics, sedation, or [...] business decisions or sign any legal documents [facility] would like to thank you for [...] for Disease Control and Prevention June 2014 [facility] MAGR Preoperative Recordon 0 12-29-2022 MAGR Preoperative Record MAGR Pre-Op Record Summary Primary Physician: Sarabjit Blanco MD Finalized Date/Time: 12/29/22 09:18:18 Pt. Name: BINTA GRAVES /Sex: 1980 FEMALE Med Rec #: [id number] Physician: Sarabjit Blanco MD Financial #: [id number] Pt. Type: D Room/Bed: / Admit/Disch: 12/29/22 [...] Signed By: Namita Roman RN 12/29/22 09:18 [facility] Operative Report - Surgeon/P reagan 12-29-2022 [...] on: 12/29/2022 09:03 EDT] Sarabjit Blanco MD [facility] Patient Handouton 12-29-2022 Patient Handout [facility] Test Urine 1on U Preg Negative [facility] Comment on above: Performed By: #### 3 [id number] ####[facility] (DEFAULT)[address] [place] [address] U Preg Internal Control Pass [facility] Comment on above: Performed By: #### 3 [id number] ####[facility] (DEFAULT)[address] [place] [address] Progress Note - Provideron 0 12-23-2022 Progress Note - Provider [id number] [facility] Progress Note-Physicianon Progress Note-Physician DATE OF [...] to proceed. Sarabjit Blanco M.D. JOB #: [id number] ul [Electronically Signed on: 12/27/2022 09:06 EDT] Blanco, Sarabjit MD [Verified on: 12/27/2022 09:06 EDT] Blanco, Sarabjit MD [Transcribed on: 12/23/2022 09:18 EDT] [facility] Coding Summaryon 12-16-2022 Coding Summary HTMLBase 64 GfpnvjbkEAo6hOn+PGhlY WQ+DI4GQVWeU47gyEDmxJ 0AS5iTPA2LKZZMFYUHTL1 LRV9xfEY8NLgmM0AdcwNs CulsjADcZX75UKi8CEA6g IyhYIbuiH4iuXNdX2u8Nh IjIK34dM53GYyxSMRpAlY 3LjZpbjsgbWFy Z1ikPrWmyFVgPho+PHRhY mxlIHdpZHRoPScxMDAlJy MwbJriVX9sUt5fTNGhWJP vbGxhcHNlOiBj q3bvPETwTFtdBH7hfTvrF 8PcqNY0QNHao3f6Vf31pU I+NBWwZQO3pDnwWIild24 7CnFeb6ilDEC4 sUReUPnlOWG1F31nt7Y3K GJzDTVuAFG1yHS2oH7aiX dlgtbfK4NsdUIrZaE4YPH 6dTPqyV1xwYln vcvtvE3eEmt+T93ZUZ7QL EWVFC8SZgg2W2JuBvqxhV I+AH05KMZqKQ90qUFxvUV gr7qikPz1RiCl YYPcEGP6fAirTYygc2YxT SYhV59pdWKuv7K8YFPurE ilwYTzAxZtoAR8fI6kXNl iaehoc5ivhpeb Hczal2ljsh76kL98G69iJ KvwKBKbWLA4GJQmKMIgjH ndqd1bdX0wTn8+ZLbsy3v ff8qeaMk8MbFe ZQSdtiUduCgfRZC9n4MyL q86W6BruDcdg3BxBjj8wk 51wCWaq4I4jYX8LOrtKVM rwZ6wWAduFfC2 KQBaRjSjpE48oDXvWCmlZ f2lmUhspQfjPA8oAZParr zvIOQjmF4xCVTfqYUwiHo bHV0sJYShnpdr v329OxXoCCP8DPNxyJSgQ 1XdeG9zRcGmCEXpYJAoN6 KfgDFxGNpoW303FNgaBrJ 0AOMcpoDpL1Jq RNAijUdqBiR9b7I5Qy2Bh 1OrdekuJNM6ZHjnTMWaJh V4HoUcWfU9G2PlZsf5SZW uaTgoNU2gM7Qy HYMvvklrmdpfuRM9AHFkX LBbtU32kFVsTNwtEy0zv0 J8f650QHDbENTuyE45Oe7 udDogMTBwdCBU eY9zyaiot2lhguvrIyAhT BAlIPk1TRs3UMCuaBjmUr ViZEV7FxY4TJF2hOMmzZ5 kiOrmprdspN4c Oyc+U14fsK4lEVH2GBX7z fhqKWIzxqZgNN25AB86C1 RyPjwvdGFibGU+PGRpdiB fgEtuKE1fLeYf c7cfo5YpPSqwE1CoMTJvP UwkNzz8HHXxFAS5aNH9eK 9qEWHzMSomv8C4xRK9D7H tpyOkbx1my8jv RQVyOJedU65lkDJta4J6L KSikLW6STWyyCglOlZoyH 93Oyc+CHIazQrgc4KvIiz wy1lod1hbzCw3 VvWnIVVrqqQrrJmaRFB1n 4RqGu52S41qNEvhLFQlEU NkUTEgMISxwBqeyy0nzX3 wIi8+PGNvbCB3 nDO8fA2tOYCyJmO5KYxcS 140LuSqcWXdIvldq3uiz0 kqdFy0ExGxXBCjmySryIy xSRM4j2WbZa87 O70nTAqkFMDdVGAlWVXdQ FArvVfhkq6cjB4oOq8+PC 2ub8beds95jU30jKT+PHR gDKQ5wSjxYZkh COGkbZ0aHSgdHyU3JHMeN aCxmR05yZUjKMnwPc7dyW mhiZlmIW2rXFRxvyeet99 5ReKxf0axDASo wCLvVLtwDNT8I31yb2D2A VTdLFEbAAC7dAZ2sV3ibV lnbjogbGVmdDsgdmVydGl yPDgyBHgyM619 IHRvcDsnPlBhdGllbnQgT xBvAGl3U5YhRek6GHUctF uhIZ9erNHtLDfbIw6brPx duMzwTT3yVQDi ayouz009OyXru4foSQSsv VHdOHhcJKP4I66rh1M4WJ QoIZExAXF1bAO1vK5kfKx nbjogbGVmdDsg puQfmFqfAFocSSkpF325E HRvcDsnPkJpcnRoIERhdG F1QM56DP44zXOzn4Y2qMH 9D8TkNGMrdbbb sgldiVW0MQCvFFVwhW67C a2mnVtxDq8oSRQyLKC8CA UzaBDjD1YedL4hCcSwGFR aROCpB4WylBFo EXnjG512MTvqZbB5LMTcq oKtI6HwQULhiEclHtU3i1 C0Kf1NT7W7UT06KD81rFP ci8X0iMI7G7Gh NFEdauojnhjzaQX4ISExT CBibS59Nl7ihXwmEn8vMO SnPRW9NQEhjYFdN1ThgF9 yOiAjMDAwMDAw T5AujFEyEMqwI099FOrnI cG9YRInpcFoN0OaNEQlnD ybTcG9k9Z6Ps7QWFp2BE0 3MZ84wHSkm3M9 rLY5B0HpYTLomnfcxdmsv SM0MQHhKSBlkJ22Ng0rcG shCo6sUDHnTHW6EJNdoEK sN7AwnD4nZyXj PMRvOYLbE1NmxRLyUZmxR 590FFobWvX4QYWvecKsF0 DjHWAutAdyDuD2h8X0Wp6 YOAFnLS93ZOR5 qRA5ZT69WH76R0VkThczi GFibGU+PHRhYmxlIHdpZH RoPScxMDAlJyBzdHlsZT0 rOv4uYVNoHIBe zBdtkRBiAuCwm7mkJBCoC KyuTO1wsPboK2BwfFD5AF Hvg5z9Yz81N90kY6FxxMC +SPWnwNH6xZB8 hA4pHbZhHzX6ZPcvH974V mWepVEhConmc1dlp7xstH l9QsJ8DIPmlwAkaWflXEV 9c4WfSq98F82s IHdpZHRoPSIxNSUiIHZhb Scclj9gfZ6sPz4+PGNvbC B1cLJ0pR8jDjMnGeU0COi wX201ApMiyJYd Zyhci6mgn7zzyFu4PyZmK LStqnQbeGbbTIT0m0WjCl 48W1CwdCdcu7DoSsu9cy0 2vCLgv5I9jSV0 X7MaKGFuoovziJIglIntV N6cWUGdpbesMWLzwR9eUR BiY1h8IuAsEzN6CBsvA8M mtmJ5DESiwBRq EYsdQXS4A63tz4V1QIYyL CNdSUO0lWT4rT2mxKqnwx ogbGVmdDsgdmVydGljYWw gCZmpM151OPEc uMazKFNbnP1hHQIyiKYki TajYX6lBPTftzszYs0VRg RJTiwgRUxJWkFCRVRIIEF OTjwvdGQ+PHRk CAC9yHdsWUooILWzhY0eF RNmL4f4QkGlYpK5AAtyW5 KjXRWernjdTu14eW5cEqZ fEoP0AOzxO1Yg ymK7TVZamHCkSYgoVCZ8M 77xp7C0VENxEHUoTJZ4bN H8cC3wrCymrlbszIVmoEf gdmVydGljYWwt YCaoI214DRAqiWbqYxD3E vBtZrG4VBB7Y9RgHdh2YP UsfLhnWV5hoSJtACkbUp1 waFiurTihNE7i BRPswqwaQLVzaS5aFXFwo XHojUowOO8qIDRettdvk5 14WqBoKWQ5FRRknLUlB0X qxK1oAxYxQXJy AHAfI8VpgJVbJLftM235P RkdBtO0LGXtqxZkY3IrDE GgrLedIzQ5y0C5Az76XqA ZZWFyczwvdGQ+ HFHcCZJ2xOliYXtnJMWbw U0uZERcA2w4GpBcXtI0ZG pkC6VeNBSjnjdgVm64dO6 gRuAxHkJ9CRwt V5KxuzU5ACMkpVDbJLesT KP0H34so8T1SSUdPXQnFT Y5dUC6cC7cpPqhsfscuCD mdDsgdmVydGlj HAwpPRtcW452GQYocBlrN kZFTUFMRTwvdGQ+PHRkIH T8eVegRUcxRIFozJ9wEOH pU3q2UvZmXaR9 OWmvL5SyJCDcdguiKa84w K4pYtAqSoA0CCwzO9Fbxi P1MNLtqDWbNLewGAH7P50 aa9R6HOTeXIRb MBG7eDF1zD1bjHditcnbc GVmdDsgdmVydGljYWwtYW iyG227VRRwkKmlYxCetTT PxSSxVEX2OR75 IU17O5ZmMxhrxTTriIY+P HRhYmxlIHdpZHRoPScxMD MiBnIcrOyeKP1uWp3yWWF yLWNvbGxhcHNl WwZrg1pmVPSpCGnoQI8yr WpjZ2LenNL8MCRrj8w4Dd 96W69bI3FlrNM+PGNvbCB 9eYJ5eM2jPmMt XjO7DSbgQ607LeDihRYmT hhmm9ocs5amhKk3LcIrMH IxddBdoVasNSH7d6KkFc0 6F84xIAhmQBMw HNWzJGTbWWUfvEpzug2hf G9wIi8+MDOpmOO5jOQ9mE 9iBpXpBqY5ZAfcB778TsL qeLUxJjplK03w E2GoyXZ+BISvAxt2ESNyj IyvVN5otUZiNObuKn6mUJ N5XfBpHrAhYUciQ6SfTNP pbmctcmlnaHQ6 MEGoFDUizL58Zr4ytEwzP q4xLFHhNCS7TSYovOZgM5 BuzN5hVwUrHBLhAPTsO2W bhJAoYIupC286 UBwbDvW1UZMearLmV9ItK PMyiDsbWwA0p0Z8Ik1OqW nlnSGrZC9cHjOvIUm0K1D gRfg9BJNszYgm TV2ohOUtSCeiDs6yoWqbo QolXE4rQISixkatj502Kw Qao8tcGQUpiTTsODbbYAE 5S08xc2P2PCUf FBJhQGG5xLJ2jB5vyEtfk jogbGVmdDsgdmVydGljYW dnRZkiX090QWMozNdnAtA IYrp3C3MlStd5 IGDavPwhZH8yoPSqMJbwA v9ynFnorHglYZ2gNAZbem gbv259CgHsc8zvCJOuePV oUEexSKZ7Z58h u8K4DACbOYCuFAG5lIN4l G3xrPtxhazgoFQdvJzjib VlgEjvJFmzYLqjG662CAU iuSmbGn0EWdi9 M9FvGwq2COLgtClhHJ4nt KOtQKfuSa1nuMajkHfnHS 5oLIZuyncvy189OhImn9q kIDEwcHQgVGlt DLY4I14vd6A5BDAzSEEmZ YP3cRS1wD5llVnhgptmeJ VmdDsgdmVydGljYWwtYWx xE921MHChiExw PlBheWVyOjwvdGQ+PC90c d32R2VgUczmNlc7YJAvFD A0sWO2lH7gLQSoUWghx9A 8iLT8V3UkunAe ci1 (more content not included)... [facility] Consent Formson 12-16-2022 Consent Forms [id number] [facility] Inpatient Patient Summaryon 12-15-2022 [place] [address] Patient Discharge Instructions Name: BINTA GRAVES : 1980 Patient Address: [address] [place] [address] Primary Care Provider: Name: JEROD DELEON After you are discharged if you find you have any questions, please, call [phone] ext [phone] to speak to a nurse. Discharge Diagnosis: [...] the [facility] 25/04 Crisis Hotline -Text 4HYWT nx [id number]. If you received any narcotics, sedation, or [...] business decisions or sign any legal documents [facility] would like to thank you for [...] these instructions at home: Medicines ? Take ogft-bra-uhunbqs and prescription medicines only as told by [...] your h (more content not included)... [facility] Intraoperative Record MAGR Intra-Op Record Summary Primary Physician: Sarabjit Blanco MD Finalized Date/Time: 12/15/22 09:41:51 Pt. Name: BINTA GRAVES./Sex: 1980 FEMALE Med Rec #: [id number] Physician: Sarabjit Blanco MD Financial #: [id number] Pt. Type: D Room/Bed: / Admit/Disch: 12/15/22 [...] Cox MA Role Performed Surgeon - Primary Spa Director Spa Director Time In 12/15/22 09:17:00 12/15/22 09:17:00 12/15/22 [...] Luke T RT (R) ARRT Role Performed Spa Director Scrub Personnel Night Custodian Time In 12/15/22 09:17:00 12/15/22 09:17:00 12/15/22 [...] Agents (Im.270) Povidone-Iodine Prep By Vida Figueroa HOT ROLL LAMINATOR Prep Area (Im.270) Back Prep Area Details Bilateral Skin Prep Agent Dry Yes Without Pooling Hair Removal Syntegrity Hair Removal Methods No hair removal performed Outcome Met (O.100) Yes Last Modified By: Jacqueline Matos RN (more content not included)... [facility] MAGR Preoperative Record MAGR Pre-Op Record Summary Primary Physician: Sarabjit Blanco MD Finalized Date/Time: 12/15/22 09:34:52 Pt. Name: EJLENA BINTARADHA ManriqueO.B./Sex: 1980 FEMALE Med Rec #: [id number] Physician: Sarabjit Blanco MD Financial #: [id number] Pt. Type: D Room/Bed: / Admit/Disch: 12/15/22 [...] By: Sharon Epstein RN 12/15/22 09:34 Normal [facility] Operative Report - Surgeon/P reagan 12-15-2022 [...] on: 12/15/2022 09:27 EDT] Sarabjit Blanco MD [facility] Patient Handouton 12-15-2022 Patient Handout Orthopedics [...] these instructions at home: Medicines ? Take teqc-nfy-alovinb and prescription medicines only as told by [...] sugar if you have diabetes. ? Take xvgg-ssd-rqwvyyf and prescription medicines only as told by [...] provider. Document Revised: 06/11/2020 Document Reviewed: 08/27/2019 [employer] Patient Education ? 2021 [employer] Normal [facility] Test Urine 1 U Preg Negative [facility] Comment on above: Performed By: #### 3 [id number] ####[facility] (DEFAULT)[address] [place] [address] U Preg Internal Control Pass [facility] Comment on above: Performed By: #### 3 [id number] ####[facility] (DEFAULT)[address] [place] [id number] Coding Summaryon 12-06-2022 Coding Summary HTMLBase 64 ArmmczbtPAq2iOc+PGhlY WQ+PQ3BBVGnW91lrQUqrF 8TF1qYCB6PUJHWUHUHQG4 TMS7xaHK7BExcV5OixqGc EbkkzBNyUD32UUv8QGO7n WapUOcigC3nzVPcU1u6Ok BeIW77bP86PLkmLTYnQgK 3LjZpbjsgbWFy A9qqNjQrdQRcCje+PHRhY mxlIHdpZHRoPScxMDAlJy RvtKeiZT8bYc5tOAVyFVG vbGxhcHNlOiBj i0meWPYrHHkaKU3qgIfeC 2OzjKM0XTPmx6b9Kc34xL I+IIEvRAU3cUdhERaze08 2SjLjb5ttNKI0 uYAsXZfdWFR9J34ec0Z7Z UBsVUOcOPD9aBW5oW3vpC weynrdW2NipGHhAzX1PNM 4jEAmvE1tsLgu eqbzuN6pGkz+B78TYH4HM OGLJV1KZcw2T0FoIyfgbF I+EX24UGXxXS56jGHgmUZ rz6lenVq2YjHw TTNdQHC0gXhfMHbll3KjR CUyN93prGHny5Q8CWEjrC ljfYVmQsYygHC1zT4fECq fkrfev6xnmpxc Xjqsv6einb93dE94A85yT MtuVTZsAEV3PYXjTBFvyL bixc2hcX6wEp0+QEhdz3s gg9vuwNd0EvQu LWUpgmOeyIrjCCQ1z5FeD g35J8OeoTurf5MhHtg9kn 66yTIie6E4iJV0SVcvCNR roZ1bPXtoXwY9 OYObHxTbaL78iXWjHCldN l1joOewvRkuTP6oHIKgyv zqXYKlbA6tNOXscQIebSz sTN0qQSYpccis x904KeEfHSP9XZTsfTPpH 5YbnF1tVaMoVZTrDZBtT2 KehJPrDBrkA962ORsgQxU 0RGZocuClW1Re YUAmhZfwNfP8y8T9Ta9Za 5PdkiqtKEV4UNhtNSYbEj C0GiAyBhJ3J0HgIie4OUI ajXykWC3cC0Fx UMSyzxclkwtppBE9TOUcL QUnfH06pJWcBTgpTa6vp6 E2f391JIZhWXSicN28Wk2 udDogMTBwdCBU zK4xjuzdm4kgvvyyCfZoL WCrRBk0RRr1VKVomJgkTn XzIQE2NfM6MHU4oAYpvM0 vaXaqokfjbP1y Oyc+X62vxL0wXQC2PEJ4r dvaPELwzqPhBN60GZ97D8 RyPjwvdGFibGU+PGRpdiB cuOagSC3oUrRa f9cqg3HmLYetL5VeRFJtF KpuJau0RVKoBBQ4dVK9kR 9pKHXkNGdxf8X8yUQ2Y5L ujhOifc9sr3cl SYPxOCocT39wkDZoq5Y8Q DOnpNE0HVQsuAdvVrNylW 93Oyc+LEYgjDfyr4ArJrc pb0aah7hzzGv6 HgYfLENrolDblYopHYE3l 8WoUs58Q35wIQcaMMUnBK MaXPIeRKXmeGfmeu4xeM0 wIi8+PGNvbCB3 zRT5qS3gARKgDsS2GVmnY 808DdYrbJQbVhtwh4vhv3 jylBb8PyRhZOCtghEqyVz aBAG1n4NvTk29 E93kMNbmQWYjWDVoCRTqM YCmnFiphr7odX0wGw8+PC 6fv5ayzh29gM29sZK+PHR eDPA6mMrqTAia DLMujU4vMXgnNsZ1LODpI cLqeP61sBJqZZesYx5bhS aoxAsrVA7yQUHddsuuz23 0QyHxj7gmIKHz wAOjAVqsNRP0R34uw3C9Y ZMrBWGsVYT0qOO3gI2joC lnbjogbGVmdDsgdmVydGl rNXslKUowI700 IHRvcDsnPlBhdGllbnQgT rAxFMh7H5MdPct3SVUnmI cfCP6zpHWsUQoiKu9nkFi elKacZP1mEWNn wfitq164YqJck7tdIERzi LIhZFsfEQD9P41mx6C2AO XbWCAbNBA9hDG0xY6pfDe nbjogbGVmdDsg yoPyaWhvTEswNDwcZ893J HRvcDsnPkJpcnRoIERhdG R4FQ62CE16mYAdn5Y1rGR 5B9YfTJAirpxv hubxiBU3CWLkESOqrF29S p0hzUcpCa3yJKMhCPL3EZ MxpRCbJ7PncA1mSfEsPWC fVVNfC0JgdNEj RYrvD423CPzzXpK9FVFfl uXfD9EcCPJdrGqvLcT6s0 G4Sm1EK8A6WK69BN79oYC tp6M2kED5P4Lv NWObzvmebefvfZE1RZUlF HYcxY61Ow6wbSurVt5iRD QuOPK0AOHrbWEyC8HkxU3 yOiAjMDAwMDAw F1EwbPYfZAfbZ093HGhqU oN0DYQtcjPaW7EpLNXwkG tzThQ7z6A8Pj1UFMo0VP1 2BV81oBMcb4I9 mKL5X5EoDPRtcaawhfyss LC0RFBlEMRzpU46Rp6qoA sxZg0xLHOjFNR8EQSocQT lX8JxaH8cFyUu VGCaMCYvA7GfiRAnLNziR 831TZkxPgH2MRJlpnGcZ9 QzKGOdbHhjLqF1p1M9Fo8 CSNUdTS32EUU3 yXR1MK14PJ22I8DbUvpah GFibGU+PHRhYmxlIHdpZH RoPScxMDAlJyBzdHlsZT0 uKk9fFJVkQELk bQgckIVxYgYyu2icSFFlD ZnhDI0hcOwtU7ObsAK8NG Sjs2h0Qr09L12yW6XksSA +MHThvFG0qIZ3 xF7pOrLzTuS1UDqoE487O zSbxRPaFbvgv6czy6mzmJ f1SlE1SZOriaUefJxePVW 5s8NzBp89H01i IHdpZHRoPSIxNSUiIHZhb Rrcdm5xdL1eMn4+PGNvbC C1mVP7uT8aSeZbPaI8ADb xQ882GrYoqIWj Iyzre4exj4bbnTa8MfVrT TYekdGgaVotSKS7t6EyKh 49P0IiqHben9BySkz4cd8 6rBWcc3W5gMO0 U2GzZAIgshdriMQvoPlkM I2sCBBotennSEYflS6kLS AvC9a9LrGhBlL9MQqaT0H mpqX6IZIzlZDe TKmaLVW0U99bv4K7IQThI WYtTBP0zKM4rL1xkXuzcm ogbGVmdDsgdmVydGljYWw iZEdsG747VKOu oRjkIMEriK9pPPDbuMHfy HzlCO1jAQYcuhzsEn1GCv RJTiwgRUxJWkFCRVRIIEF OTjwvdGQ+PHRk CGP7gHadIXlnTCKhgN9nG HLhG0y9RwNdFtJ0KZaeN1 WeMKKtggkeSp01mS8gYlN aKdE2QOjaW1Wy euQ9XVKowRQpUHtxNRW0Q 06ub9Q7ZELrAJFmSXY2xC L7bL4ifExvrbzoiGZhjVx gdmVydGljYWwt NWscA044ALAakDauEsQ6C jWsHcO1JIN4D3MqEwb1BQ VvrTwmGN3wvDLtJZevZg2 ksWwbdIpaJJ1b LWAgkwqzDSMgvJ9kILFsq ZGejFonQG3pVYSjktauq8 16LfVfUOZ1VTWrlHQuX1G dnJ2fQqHkSGOc VHVrW6RwuJBaAZxrC826Z PuhMnA8XFCjhpYxP4RgDJ AhnNvoReB0t3C0Fz68FjI ZZWFyczwvdGQ+ SGWeFZB3oPheYDxtLBQfu M5aCVUdI0z8YsItIgO0PT fqY5RiBTJokpfgMv35bT1 lYoJkCrZ2TVwv O9TjlfO6NWTqxALjREckS QU8T89cq1W5KWTkCEYmXT Z7pRI4pR2cgHonjlusuLX mdDsgdmVydGlj KZirXJsdT793KEDzlFxgF kZFTUFMRTwvdGQ+PHRkIH N5eOqkNNpeZOGaoO7cJPA eI9w8VmEyXkO0 UDczE5BzQNLnzogsWd28y H8uEvPqDpE7CLrdS4Ncvd K7RABukEBcIWgvYQC8S40 fe3B0FTLjHFJj DPQ3uKA0nV6knEgvamhtm GVmdDsgdmVydGljYWwtYW ptV784ETTuaVewQj6MTL0 1BQ01E1CgOpqh dGFibGU+PHRhYmxlIHdpZ HRoPScxMDAlJyBzdHlsZT 0dUm1dSNFoYJQufKgthJX yGvOxm4xxYHLy EJedAL1eqZqdC0RrvEZ6N SAnz7u1Yl73P41rU9WsqR A+YRJxnNP2kNG8wH2wLdJ dSpA4TQgyT323 EqKylSPzJozub0uex7ifx Pz9VrRbJFUlayBbbYarOM A6j5BqUv35O16kOCpsPDD oPSIyMCUiIHZh nGlofc9paI8qSl8+PGNvb XP2hZU8qT6hUzGyIsB8LE ecL013OdHvtDTyDatzE28 jS6DmvXI+PHRy Bzz0QTEseMxaFN7hwCWbY EjkYu9eJBG8FoGkLpSmWY jqR7TwEZRrdvukgdzfnEO 6TZDyRQTnfU18 Df9rsYjkAz6fXYGbARO8W XXqwMFjR2AnoZ1fKbHbNL QrEZWcH2KrvIPkHAbfQ55 8ABngCkV7MHJb liMhH1XmUERpwJaoDdY5i 9N2Cb4HhNddxBBpRZ8qHj SeBZm3R9VaLur0PFWfjQc rBD5ljSMfWJrr Rk8klNjrtVdhTW0uPFXys mrid047PeCqi4mkZVNqvI SaORrbQZG3H62dt3W3ZRR bZRIuFTP8tXS8 mM6yfLnhuyvjnHYutNztx pUsbIpvMNqeOOdiT709ZM AoeMlwVhWCVaw5N7QwZje 8LWVokScrIN5i rUJtJZwuLi5clOeewZirD C8nDVGwiupfu395WpAea1 hsFPTgaLSfZOetWPL8U43 sa5Y2NVHhWPEe EON0nCA5pH5wiJpwfjdvc GVmdDsgdmVydGljYWwtYW neA046RMBpxEvgRg1CGuu 2J9GpTjv9CGGp pVefFU9glWYiDOghUc4ml KbrtAacBD7bFGUvermib0 60YdHcm4yzTKYipBSdWSv sMZB1M50lz3P0 PWFiQFLpNWK0uGD9fL5zc GlnbjogbGVmdDsgdmVydG jhFJjjKLjzI397DUQozEx nPlBheWVyOjwv dGQ+RX66db40W7SkPmcyQ nd1JCRqRUZ4dOK2nJ1gWE CqJZtdx8X8vHZ5K1HbbdX yps2kr9lfCFVw ZTo (more content not included)... [facility] Progress Note - Provideron 0 12-06-2022 Progress Note - Provider [id number] [id number] [facility] Progress Note-Physicianon Progress Note-Physician DATE OF [...] to proceed. Sarabjit Blanco M.D. JOB #: [id number] [Electronically Signed on: 12/08/2022 10:52 EST] Sarabjit Blanco MD [Verified on: 12/08/2022 10:52 EST] Sarabjit Blanco MD [Transcribed on: 12/03/2022 11:25 EST] [facility] Coding Summaryon 11-22-2022 Coding Summary HTMLBase 64 OralbvcoDJs9lSh+PGhlY WQ+ZU9QAVQwV78cnULugI 9OT3pMTZ7WIICRHDJOXP0 GQP0bfNK3EIxuZ2GbfeXi QkpdgLJsGY22AQv2BQS4r KqoNEneeS0clBWtZ6h7Qy AjQF14gU38MZclYWPyDgL 3LjZpbjsgbWFy F2ccEoTjfCNlPhz+PHRhY mxlIHdpZHRoPScxMDAlJy VxkGwiWB5rXi3cYZZmNGR vbGxhcHNlOiBj o4fnDUCtKAruEP0woCbfL 1UkeQH6JHZig2x6Lt82gQ I+FRNfEOH0mAkkZCeyb00 5VqCwx9dnPJQ0 nQHmJKitJLE9D39ym2Y0W MFsIQOnMWZ7pVE3aI4rgP gylhhbZ8KvjWQpLyH5BYW 3bQEheQ4lxUui wjstzE3nStt+T86YCW0DT LSYXW5MQun7X3SgEnstnS I+QB77IXTeQI23mYRgyZP rd1ddzRf2SqRm DAWtXCW3oQgoYAgth3LfL XCpN36daCAct0F7RRGzyS fyvZArYtEhwHL0yP8vMUk lfzfyb8wzyrgw Fsmjs1gabp34nS85J13rG WigUMYtBIC1RNKdNLPypW bjqu6yhZ9kFk6+NFloc8a xx6dwhRn9XvKo SSRsbeXwrHwgUEJ8z8QhD w91S0VpwZcgu0FiYec5hf 59bNNqa9U7bEU7RByuZRY wrT4wTUbhZvP0 PSWzRpCqmO22lYIpEMmqH e2nnTqzgXuyJJ2uBHRwzq qjPYHevI2sCFEduLDzrKz gMS5jBCIcpgxy v545KfUtCQE9MSLzeWEeG 2LzyE6yEkLwOGPmHREhX7 RbqZZlKKbuM788EDocUtR 0BJLuycWuE6Zx XJYmeRroAwU5z2Z1Pz8Sf 2AbkojgGBD6TExxLYFbOn JpFeGoTwE9F5AjZon3WHG wfWqiSD2cK1Mc XSAffahotoawiIE0DMOvS SWqdR45dFEzGVntSs3tz1 Q4l142WRZwLDVgxL73Cc9 udDogMTBwdCBU aA5xlbqpl0xsuxulFlVmH EHjJGd3ZJm1OUZhbXovVa VuUIN8MvB6REV7yJYvbK9 laLvabpwqiA8c Oyc+T41pnU5hGTN4LGH3y pzrJUJueqUgDP23DV72N7 RyPjwvdGFibGU+PGRpdiB cvVjdBU6jZbPe v0xpz0AyZHblZ3TsWFNhK DtiFpa8BNZmBVO0gVI9mJ 7tYWBnFGibd8F2bBS0D3G orcHjpy0bn6og BNTzIEgnC18auNEwm6M9I JKzeTY4AWYvwPmvHgFtoC 93Oyc+MMHbjNxyo4XdIfk yy1cnb9pmcZu0 WeEiLHWzruChtDhaWET0i 4AwRv29R20dNPtbEPToXS EqNHPsGCOyqDtwgk4gvU1 wIi8+PGNvbCB3 cGN7kM5iSVTsUmD8YRezB 264VxAhmTFzOwrmb4nxa5 zkhQe1OgFmFDKdhjFrvPf jRNJ6q4XgBd18 K77rDVgoFDYrZQQmXSNjC AVwnSkncs8ioS5sFu0+PC 7th0jpzx58gV52dVI+PHR wUCA9wQcwGZcl TCCipO9pQKlfWwJ8HONcK qZtrW25iANwSCkzAe5miC eynAkwBF2jPFKywkecg39 3CjWzd0jhZHDj aHHrOWcrAHA1P22na8V7Y QGrTOMpAHJ3kRK0rM2gqN lnbjogbGVmdDsgdmVydGl nUAzrLYhyH878 IHRvcDsnPlBhdGllbnQgT hRxIEl6Z0ZdRya4VHCmaK ivJD9ycNEiLQhqPi8jnKl mjDkhUT7mTOMu zkmro897EmCbo1cpHSEzv CBbKBgmLGL1H49dn1I1MR ShPJCqGHY3mGZ8xN4kgSu nbjogbGVmdDsg pxOznYwmNWwnNJlsY416Y HRvcDsnPkJpcnRoIERhdG G0EI91EN94aFXta1R1wSX 9R2UpCYPmblzz nbwsaXB9ILAzIUHvkZ62G p1tmNrbCv1uUPQiDWE9XE MvvSCkJ7JfjH4nRiNoGDR sBHYuV4LanTVk NNtnE107ARzmLqS2ZDVwv zBuM4BbHJScrRmkXnO2m5 P7Uk0EQ8R7MQ52LS90cNK bd5O2lXK7O4Gr JJLxxhelhvgpoMX8BQKhZ LVdiR26Bn6snVzuMr1fNE QxBBO1IMPamWYaO9JniK7 yOiAjMDAwMDAw Y3KslGRwPIwiA445QAycA pU3AECctuZeW8QpTIPomQ heEeE6v7Y8Pc5NJBj1TJ2 6QS32bBTtx6G9 bJU5N4RsDAFuqbtvqcxnt WK3VFEqYRKypX96Ug5nrX kiJg0kMOFcBND1VBVowAX cN8MhdX0wYtGw ZTXsCKGpX5IqvSJuBLoxL 680ROxyBcL7CKWreuJnV2 TlYDMmqBloQzO8o3V1Ou1 XMMWrJT61LHG8 sPN7JM05SO75D8FgFhqoo GFibGU+PHRhYmxlIHdpZH RoPScxMDAlJyBzdHlsZT0 aCu2rFMQaZOHf nIvpgOMbZcBgf2qjXURuE YihRN7ctNbeW0FrsWK2NR Woj6m2Zi89S35jA2YinUT +XCYhkIK2iUI6 iU3yPzXcQpA0MLcwR399F jWarLKkOgsrc2mof7lcuW n2FjD0OSCrmrFyfTtxTYS 2u4QeHq54Z62p IHdpZHRoPSIxNSUiIHZhb Ogeca3roV7zPc8+PGNvbC S0rQD7lO7dMmPyLoV6FGw eJ283NmHgvEXe Yyheb8bus6lsqBu7IsXlQ LZkblOqfSjaLMP7i0DwDf 26O2IemJlzb8ZoBlm8yn2 9gBRpj3U9sRF6 E1VsYGKmmtacdQDtvHgaA I7zVGOgohqwHXPznI9wAA NcG6w0VaFqTgS5FWqvY4M kmbQ7DWWvoGYv QHztBQO7F48og3P0BQZcT VQyIJV8oTI7jX7rdLgove ogbGVmdDsgdmVydGljYWw zOGdoK813UQFj fZtlLSJlcN9pXWZwiLDgu NfaOV6pMUDndmprGg7EUt RJTiwgRUxJWkFCRVRIIEF OTjwvdGQ+PHRk NNT5zPraGLoxQUCxcL2bB YOeB6e3UiKxIbA3VYdmS7 UnJGXstqrzNp12dQ7fCrF mWzN6ZFhzB5Wo dtJ7BHErkHIpQPqyXSJ6E 65rx4R5CQSsJMJjWXC5lI X3bF3pxJbhbqupxXFpnYw gdmVydGljYWwt HOqoM799HCXnaMopUgT0G aPrIdM8XRF5C5AbNaw7MS WrtBhgOC2hxULwRIxqFu0 liEpmqSrsVR0e GEIwadbwFCBvhD7tGANfc PYngAwiTS8uOJPvbghwu9 73IdDwMGD0WUVrxKMsR5O tnA5kBrHxIXPs NRVhB5KojYLyKBjfG233J ZycRyG2BHDdznUmE1WzSF AgyKtfSeP1t4V0Oi95IaJ ZZWFyczwvdGQ+ XSLiTTR3yHmoLYmiWEHzu P3cITSfV9k4EnHqUiC6GP scW9XuOCQrzqogVf09cO2 bJiFnYfU6QNun C2HnnnJ5NNBtsXLgMDkrH LJ2O37nw2Y3PWHdDAXoRV W9oFG3xD2guIlhcpyruII mdDsgdmVydGlj PMfxCBbnQ109WTQweMefH kZFTUFMRTwvdGQ+PHRkIH F2cMlmNQovDUGxrT4lKKT fH4p2WmNtXtK2 LQnzP9AbZUWpcjtqLv14u X6tOsUqAsT9FLrmK9Amvy C8QZVixAZpHQajUFD4U82 ad9O1YBUpOWDv WPO1bOH9dN0okGdlolmth GVmdDsgdmVydGljYWwtYW mhL721AIBskWkdYj2TBG2 3BE89X1XeTqsj dGFibGU+PHRhYmxlIHdpZ HRoPScxMDAlJyBzdHlsZT 1pMi7vNQFnGHHlkVdjdSM hApQao6rtSOOs IXpuRN4ztPwgP9MtgWT3V UYti8x4To46G13hJ1KqoY A+UJZdzQZ9oFA1eK2yPrI mLjB8GZtuS422 QpHmiBIgLntsj0skp9zzl Rg8LgJiQGKbmrGzbLdxNJ L6u2LdJu40K42dSIjcUBR oPSIyMCUiIHZh sIbhok3pyE4gUg4+PGNvb YK1vLY4mC4zNcRzFgD8FY jhF386ObRufTZbBydlR50 xK7OwrVM+PHRy Uvx9NHZteKigUI2tbIHnR YxeZo8lMOE1UxJbPtTwUG kdW1JvYUBnntgxbarkaZG 3ODFcLXLsoO27 An8vaLenMl3xKTEcQUV6M DTaoAFnJ8OtdH9hKdWfMB AfEGMzK6FirOOoTAphT58 2SJqhQuD6HKTn maQdU6KpCWWtfGslIjU6h 8F4It1ExCvjyNRdUQ0aZz HiRAz9H0QxXbr0LROkwKh pPP7kdOChKRan Ad1bmTmhaSrqJL8yPZQub cqui606ZxNtr7vtKEEjfE OrTEnhSLQ9Q13pt2Y9QES cYIXeWOK4xCU4 hP6vbGyvomtxfMYmeSfth oRhzDjfTNhdKSkcQ101VK GbhWvtNnIVYhq9V3GeGwv 3GJMdoQrzSX5y tUUuVPugAs6aoAmcoNrjD I5kYTLtgqana527FkHyh2 coGSTllXFqNYghCHL3D45 od5O7GMOrPOWg DWD2kBQ8fI2tmDwxwuwzb GVmdDsgdmVydGljYWwtYW xpL545TRVyfZewSg5LWdm 5S3FiFeq7YRBw hAmoVO2rqAPfMMzdCi6fe FvabSbpXP3kRWAajuczx5 71GoWqf6suOTBqrFRcHQz pBLV5Y24aa8R6 UIFqNYAuAVM9qKD1lK6pm GlnbjogbGVmdDsgdmVydG dxEXnfFLprQ927ETBwrCu nPlBheWVyOjwv dGQ+PV79ij35A9VhYxhjZ jv1QWMyUCV6yOC6dV1dKJ YlDYiqp9U2hTX4F5NxgsS gaq5mz5qvKBDi ZTo (more content not included)... [facility] XR Spine Lumbosacral Complet e w/ [...] Navarro DO 11/21/22 10:49 a Technologist: GEOFF [facility] MRI LUMBAR SPINE W WO CONTRA STon 05-20-2020 MRI LUMBAR SPINE W WO CONTRAST [facility] Department of Radiology [address] [place] [address] Patient Name: BINTA GRAVES : 1980 Sex: F Age: Race: White Pt. Location: Patient Status: D Ordered Date: 05/02/2020 2:00:00 PM Completed Date: 05/20/2020 02:21 PM Requesting Provider: ZAYDA FRAZIER Attending Provider: ZAYDA FRAZIER Report Copy To: Signs & Symptoms: M54.16 Radiculopathy, lumbar region I10 History: [place] Comments: , Recent lumbar surgery, postop numbness left perineum and left leg, evaluate for nerve compression. , Recent lumbar surgery, postop numbness left perineum and left leg, evaluate for nerve compression. , , , Ordering Provider - A FREDDIE MSN [employer]PL[employer]TER [employer] , Exam: MRI LUMBAR SPINE W WO [...] reports Electronically signed: Yamileth Barragan. Transcribed by: [email or web address], User Resident: ROSITA NIX Electronically Signed by: YAMILETH BARRAGAN @ 05/27/2020 12:36 PM I personally read this/these film(s) with this resident Normal [facility] Comment on above: Order Comment: The A ptima SARS-CoV-2 assay is a nucleic acid amplification test intended for the qualitative detection of RNA from SARS-CoV-2 isolated and purified from nasopharyngeal (RISK ASSESSMENT CONSULTANT), nasal and oropharyngeal (OP) swab specimens from patients with signs and symptoms of infection who are suspected of COVID-19. Results are for the identification of SARS-CoV-2 RNA. The SARS-CoV-2 RNA is generally detectable in nasopharyngeal and oropharyngeal swabs during the acute phase of infection. The Aptima SARS-CoV-2 Assay on the [employer] system is intended for use by laboratory personnel specifically instructed and trained in the operation of the [employer] system. The Aptima SARS-CoV-2 assay is [...] Reporton 0 Operative Report MR#: [id number] I [facility] Pt. Name: Binta Graves Room #: 5AB [id number] Discharge 03/09/2020 Date: Birthdate: 1980 OPERATIVE REPORT [...] Traylor MD Date Trans: 03/21/2020 04:34 P/chrissy [id number] cc: Jerod Deleon M.D. [address] [facility] [address] [facility] *MRSA/MSSA DNA NASALon 03-07 *MRSA/MSSA DNA NASAL Clinical Report: (D ) Specimen: NASAL SWAB Collected: 03/07/2020 10:30 Status: Final Last Updated: 03/07/2020 16:47 MSSA DNA (Final) Negative MRSA DNA (Final) Negative Normal [facility] Comment on above: Performed By: #### 3 1595 #### [facility] [address] [place] [address], [place] BASIC METABOLIC PANELon Calcium [Mass/Vol] 8.9 mg/dL Normal 8.6-10.3 [facility] Comment on above: Order Comment: No: D o not add to previous draw Performed By: #### 4 1000, [id number], [id number] #### [facility] [address] [place] [address], [place] Chloride [Moles/Vol] 105 mmol/L Normal 98-107 [facility] Comment on above: Order Comment: No: D o not add to previous draw Performed By: #### 4 1000, 81985, 89077 #### [facility] [address] [place] [address], [place] CO2 [Moles/Vol] 24 mmol/L Normal 21-31 [facility] Comment on above: Order Comment: No: D o not add to previous draw Performed By: #### 4 1000, 77575, 76007 #### [facility] [address] [place] [address], [place] Creatinine [Mass/Vol] 0.75 mg/dL Normal 0.60-1.20 [facility] Comment on above: Order Comment: No: D o not add to previous draw Performed By: #### 4 1000, 02808, 09292 #### [facility] [address] [place] [address], [place] GFR/1.73 sq M predicted among blacks MDRD (S/P/Bld) [Vol rate/Area] mL/min/{1.73_m2} Normal >60 [facility] Comment on above: Order Comment: No: D o not add to previous draw Performed By: #### 4 1000, , [id number] #### [facility] [address] [place] [address], [place] GFR/1.73 sq M predicted among non-blacks MDRD (S/P/Bld) [Vol rate/Area] mL/min/{1.73_m2} Normal >60 [facility] Comment on above: Order Comment: No: D o not add to previous draw Performed By: #### 4 1000, , [id number] #### [facility] [address] [place] [address], [place] Glucose [Mass/Vol] 92 mg/dL Normal 70-100 [facility] Comment on above: Order Comment: No: D o not add to previous draw Performed By: #### 4 1000, , 03592 #### [facility] [address] [place] [address], [place] Potassium [Moles/Vol] 3.8 mmol/L Normal 3.5-5.1 [facility] Comment on above: Order Comment: No: D o not add to previous draw Performed By: #### 4 1000, , 82735 #### [facility] [address] [place] [address], [place] Sodium [Moles/Vol] 136 mmol/L Normal 136-145 [facility] Comment on above: Order Comment: No: D o not add to previous draw Performed By: #### 4 1000, , [id number] #### [facility] [address] [place] [address], [place] Urea nitrogen [Mass/Vol] 20 mg/dL Normal 7-25 [facility] Comment on above: Order Comment: No: D o not add to previous draw Performed By: #### 4 1000, , [id number] #### [facility] [address] [place] [address], [place] CBC COMPLETE BLOOD COUNTon -05-2020 Erythrocyte distribution width (RBC) [Ratio] 13.4 % Normal 11.5-15.0 [facility] Comment on above: Order Comment: No: D o not add to previous draw Performed By: #### 5 0608 #### [facility] [address] [place] [address], [facility] Hematocrit (Bld) [Volume fraction] 44.1 % Normal 36.0-45.0 [facility] Comment on above: Order Comment: No: D o not add to previous draw Performed By: #### 5 0608 #### [facility] [address] [place] [address], [facility] Hemoglobin (Bld) [Mass/Vol] 14.4 g/dL Normal 12.0-15.0 [facility] Comment on above: Order Comment: No: D o not add to previous draw Performed By: #### 5 0608 #### [facility] [address] [place] [address], [facility] MCH (RBC) [Entitic mass] 27.0 pg Normal 27.0-33.0 [facility] Comment on above: Order Comment: No: D o not add to previous draw Performed By: #### 5 0608 #### [facility] [address] [place] [address], [facility] MCHC (RBC) [Mass/Vol] 32.7 g/dL Normal 32.0-35.0 [facility] Comment on above: Order Comment: No: D o not add to previous draw Performed By: #### 5 0608 #### [facility] [address] [place] [id number], [facility] MCV (RBC) [Entitic vol] 82.7 fL Normal 82.0-98.0 [facility] Comment on above: Order Comment: No: D o not add to previous draw Performed By: #### 5 0608 #### [facility] [address] [place] [id number], [facility] Nucleated RBC/100 WBC (Bld) [Ratio] 0 % Normal 0-0 [facility] Comment on above: Order Comment: No: D o not add to previous draw Performed By: #### 5 0608 #### [place] [address], [facility] PLAT CNT 194 10*3/uL Normal 150-400 The [facility] Comment on above: Order Comment: No: D o not add to previous draw Performed By: #### 5 0608 #### [facility] [address] [place] [address], [facility] RBC (Bld) [#/Vol] 5.33 10*6/uL High 3.80-5.00 [facility] Comment on above: Order Comment: No: D o not add to previous draw Performed By: #### 5 0608 #### [place] [address], [facility] WBC (Bld) [#/Vol] 8.71 10*3/uL Normal 4.00-10.60 [facility] Comment on above: Order Comment: No: D o not add to previous draw Performed By: #### 5 0608 #### [address] LUMBAR SPINE 2 OR 3 [facility] LUMBAR SPINE 2 OR 3 [facility] Department of Radiology [address] [place] [id number] Patient Name: BINTA GRAVES : 1980 Sex: F Age: Race: White Pt. Location: [id number] Patient Status: I Ordered Date: 03/07/2020 1:00:00 [...] images. Electronically signed: Moris [place]. Transcribed by: [email or web address], User Resident: Electronically Signed by: MORIS VEGAS @ 03/08/2020 08:49 AM Normal [facility] Comment on above: Order Comment: The A ptima SARS-CoV-2 assay is a nucleic acid amplification test intended for the qualitative detection of RNA from SARS-CoV-2 isolated and purified from nasopharyngeal (RISK ASSESSMENT CONSULTANT), nasal and oropharyngeal (OP) swab specimens from patients with signs and symptoms of infection who are suspected of COVID-19. Results are for the identification of SARS-CoV-2 RNA. The SARS-CoV-2 RNA is generally detectable in nasopharyngeal and oropharyngeal swabs during the acute phase of infection. The Aptima SARS-CoV-2 Assay on the Hubertus and Hubertus Fusion system is intended for use by laboratory personnel specifically instructed and trained in the operation of the Hubertus and Hubertus Fusion system. The Aptima SARS-CoV-2 assay is [...] Magnesium [Mass/Vol] 1.9 mg/dL Normal 1.9-2.7 [facility] Comment on above: Order Comment: No: D o not add to previous draw Performed By: #### 4 1000, [id number], [id number] #### [address] OUTSIDE CONSULT NEUROon OUTSIDE CONSULT NEURO [facility] Department of Radiology [address] [place] [address] Patient Name: BINTA GRAVES : 1980 Sex: F Age: Race: White Pt. Location: [id number] Patient Status: I Ordered Date: 03/06/2020 7:05:00 PM Completed Date: 03/07/2020 11:41 AM Requesting Provider: DAKOTA TRAYLOR Attending Provider: ARNEL GARSIA Report Copy To: Signs & Symptoms: NEED CONSULT History: Lumbosacral transitional anatomy CT of the L-Spine without contrast done on 03/04/2020 At the [facility] Requesting Dr. Dakota Traylor Comments: Exam: OUTSIDE CONSULT NEURO OUTSIDE CONSULT NEURO 03/07/2020 11:41 AM OUTSIDE STUDY: Lumbar spine CT scan TECHNIQUE: Outside CT images of the lumbosacral spine obtained from the [facility] dated March 04, 2020. Image [...] interpretation. Electronically signed: Ольга Johnson. Transcribed by: [email or web address], User Resident: Electronically Signed by: ОЛЬГА JOHNSON @ 03/07/2020 01:03 PM Normal [facility] PHOSPHORUS BLOODon 0 Phosphate [Mass/Vol] 3.5 mg/dL Normal 2.5-5.0 [facility] Comment on above: Order Comment: No: D o not add to previous draw Performed By: #### 4 1000, [id number], [id number] #### [facility] [address] [facility] [place] [address], [facility] POC GLUCOSE LABon 03-07-2020 Glucose [Mass/Vol] 97 mg/dL Normal 70-100 [facility] Comment on above: Performed By: #### 8 [id number] #### [facility] [address] [place] [address], [facility] TYPE AND SCREENon 03-07-2020 ABO INTERPRETATION O Normal [facility] Comment on above: Performed By: #### 6 2586 #### [facility] [address] [place] [address], [facility] RH INTERPRETATION Negative Normal [facility] Comment on above: Performed By: #### 6 2586 #### [facility] [address] [facility] [address] *SARS-CoV-2 COVID-19on 03-06 [id number] Not Detected Normal Not Detected The [facility] Comment on above: Order Comment: The A ptima SARS-CoV-2 assay is a nucleic acid amplification test intended for the qualitative detection of RNA from SARS-CoV-2 isolated and purified from nasopharyngeal (RISK ASSESSMENT CONSULTANT), nasal and oropharyngeal (OP) swab specimens from patients with signs and symptoms of infection who are suspected of COVID-19. Results are for the identification of SARS-CoV-2 RNA. The SARS-CoV-2 RNA is generally detectable in nasopharyngeal and oropharyngeal swabs during the acute phase of infection. The Aptima SARS-CoV-2 Assay on the TRUE linkswear and Hubertus Fusion system is intended for use by laboratory personnel specifically instructed and trained in the operation of the Hubertus and Hubertus Fusion system. The Aptima SARS-CoV-2 assay is [...] information. Performed By: #### 3 [id number] #### [facility] [address] [place], [place] [id number] [place] [address] MRI LUMBAR SPINE WO CONTRAST on 03-06-2020 MRI LUMBAR SPINE WO CONTRAST [facility] Department of Radiology [address] [place] [address] Patient Name: BINTA GRAVES : 1980 Sex: F Age: Race: NA Pt. Location: [id number] Patient Status: I Ordered Date: 03/06/2020 6:40:00 [...] narrowing Electronically signed: Yamileth Barragan. Transcribed by: [email or web address], User Resident: Electronically Signed by: YAMILETH BARRAGAN @ 03/06/2020 07:54 PM Normal [facility] Comment on above: Order Comment: Spina [...] Start: 02-09-2024 End: 02-10-2024 ambulatory DAKOTA TRAYLOR [facility] Start: 02-01-2024 End: 02-02-2024 ambulatory DAKOTA KYMBERLY [facility] Start: 01-20-2024 End: 01-20-2024 ambulatory JEROD DELEON Not Available Start: 12-28-2023 End: 12-29-2023 ambulatory DAKOTA [facility] Start: 12-16-2023 End: 12-16-2023 ambulatory JEROD DELEON Not Available Start: 02-25-2023 End: 02-26-[address] JEROD DELEON Facility: Start: 12-29-2022 End: 12-29-2022 ambulatory [facility] Facility:[facility] Start: 12-22-2022 End: 12-23-2022 ambulatory [facility] Facility:[facility] Start: 12-15-2022 End: 12-15-2022 ambulatory [facility] Facility:[facility] Start: 12-01-2022 End: 12-02-2022 ambulatory [facility] Facility:[facility] Start: 11-19-2022 End: 11-20-2022 ambulatory [facility] Facility:[facility] Start: 12-31-2021 Transcribe Orders Stephanie Grubbs [facility] Physician Referral Service Start: 05-20-2020 End: 05-21-2020 Patient encounter procedure Zayda Frazier Facility:[facility] Start: 03-06-2020 End: 03-09-2020 Evaluation and management of inpatient ARNEL GAVINO Facility:[facility] Procedures Date Procedure Procedure Detail Performing Clinician Start: 03-07-2020 EXCISION OF LUMBOSAC RAL DISC, OPEN APPROACH DAKOTA TRAYLOR Start: 03-07-2020 RELEASE SACRAL NERVE , OPEN APPROACH DAKOTA TRAYLOR Start: 03-07-2020 Antibody screen ARNEL [facility] Comment on above: Performed By: #### 6 [id number] #### [address] Plan of Treatment Date Care Activity Detail Author Start: 05-03-2021 Influenza vaccination Influenza Vacc ine (#1) [facility] Start: 2001 Screening for malign ant neoplasm of cervix Pap Smear [facility] Start: 1998 Hepatitis C screening Hepatitis C An tibody [facility] Start: 1998 Tetanus + diphtheria + acellular pertussis vaccine (product) Tdap Booster [facility] Start: 1995 HIV screening HIV Test [facility] Start: 1985 COVID-19 Vaccine (1) COVID-19 Vaccin e (1) [facility] Payers Date Payer Category Payer Unknown [id number] 2022 Unknown [id number] 2021 Unknown [id number] 1980 Unknown [id number] 2.16.8 40.1.431390.3.579.2.647 1980 Unknown [id number] 2.16.8 40.1.938224.3.579.2.647 1980 Unknown [id number] 2.16.8 40.1.545110.3.579.2. 1980 Unknown [id number] 2.16.8 40.1.982789.3.579.2.8 1980 Unknown [id number] 2.16.8 40.1.862844.3.579.2.8 1980 Unknown [id number] 2.16.8 40.1.958439.3.579.2.8 1980 Unknown [id number] 2.16.8 40.1.790819.3.579.2.8 1980 Unknown [id number] 2.16.84 0.1.055126.3.579.2.9 1980 Unknown [id number] 2.16.84 0.1.395560.3.579.2.1258 1980 Unknown [id number] 2.16.84 0.1.784182.3.579.2.1258 1980 Unknown [id number] 2.16.84 0.1.186935.3.579.2.1258 1980 Unknown [id number] 2.16. 840.1.784198.3.579.2.196 1980 Unknown [id number] 2.16. 840.1.914195.3.579.2.196 1980 Unknown [id number] 2.16. 840.1.676019.3.579.2.196 1980 Unknown [id number] 2.16. 840.1.064712.3.579.2.196 1959 Self-pay [id number] Unknown [id number] 2.16.84 0.1.315903.3.579.2.593 Social History Date Type Detail Facility Tobacco smoking stat [facility] Tobacco smoking consumption unknown [facility] Start: 1980 Sex Assigned [facility] 12-30-2022 Note Date & Type Note Facility 12-30-2022 Note [id number] Clinical Note 12-29-2022 Note Date & Type Note Facility 12-29-2022 Note [facility] SURGERY Clinical Discharge Summary PERSON INFORMATION Name BINTA GRAVES Age 42 Years 1980 Sex FEMALE Language Kuwaiti PCP JEROD DELEON Marital Status Med Service Pain Management Surgery Acct# Arrival 12/29/2022 07:38:41 Visit Reason LOW BACK PAIN Acuity LOS 012 22:22 Address: [address] [place] [address] Comment: PROVIDER INFORMATION VITALS INFORMATION Vital Sign [...] spine; Lumbar spondylosis Comment: PHYS DOC NOTES [facility] History and physical note 12-28-2022 Note Date & Type Note Facility 12-28-2022 Note [id number] FF The patient has been examined and the medical record reviewed. The indications for surgery and exam are unchanged. [Electronically Signed on: 12/29/2022 08:15 EDT] Sarabjit Blanco MD [Verified on: 12/29/2022 08:15 EDT] Sarabjit Blanco MD [Transcribed on: 12/28/2022 14:33 EDT] [facility] Medication management note 12-16-2022 Note Date & Type Note Facility 12-16-2022 Note [id number] [facility] Clinical Note 12-15-2022 Note Date & Type Note Facility 12-15-2022 Note [facility] SURGERY Clinical Discharge Summary PERSON INFORMATION Name BINTA GRAVES Age 42 Years 1980 Sex FEMALE Language Kuwaiti PCP JEROD DELEON Marital Status Med Service Pain Management Surgery Acct# Arrival 12/15/2022 07:50:00 Visit Reason LOW BACK PAIN Acuity LOS 012 00:14 Address: [address] [place] [address] Comment: PROVIDER INFORMATION VITALS INFORMATION Vital Sign [...] spine; Lumbar spondylosis Comment: PHYS DOC NOTES [facility] History and physical note 12-15-2022 Note [...] Anterolisthesis of lumbosacral spine / SNOMED CT 639791813 / Confirmed Lumbar spondylosis / SNOMED CT 950415753 / Confirmed, Active Problems (2) Anterolisthesis of lumbosacral spine Lumbar spondylosis Histories Family History: No family history items have been selected or recorded. Procedure history: Facet joint nerve block ([id number]) on 12/15/2022 at 42 Years. Comments: 12/15/2022 [...] Gastrointestinal: Soft, Non-tender, Non-distended. Integumentary: Warm, Dry, [place]. Neurologic: Alert, Oriented. Psychiatric: Cooperative. Review / Management Results review: Lab results: 12/15/2022 8:04 EDT U Preg Negative . Impression and Plan Lumbar Spondylosis , Procedure explained to patient along with risks of possible complications and patient wishes to proceed. [Electronically Signed on: 12/15/2022 09:04 EDT] Sarabjit Blanco MD [Verified on: 12/15/2022 09:04 EDT] Sarabjit Blanco MD [facility] History and physical note 12-14-2022 Note Date & Type Note Facility 12-14-2022 Note [id number] IFF The patient has been examined and the medical record reviewed. The indications for surgery and exam are unchanged. [Electronically Signed on: 12/15/2022 09:02 EDT] Sarabjit Blanco MD [Verified on: 12/15/2022 09:02 EDT] Sarabjit Blanco MD [Transcribed on: 12/14/2022 13:35 EDT] [facility] Evaluation note Note Date & Type [...] Records Found Hospital Course Note MR#: [id number] [facility] Pt. Name: Binta Graves Admitted: 03/06/2020 Discharged: 03/08/2020 Date of : 1980 Physician: Arnel Garsia MD DISCHARGE SUMMARY PRIMARY CARE PHYSICIAN: None. CONSULTING PHYSICIAN: [facility] FINAL DIAGNOSES: 1. Acute lumbar radiculopathy/lumbar spine stenosis, status post laminectomy, doing well. 2. Essential hypertension, stable. 3. Polycystic ovarian disease, on metformin. 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 [employer], presented to the hospital with [...] Internal Medicine Diagnoses Obesity, morbid, BMI 40.0-49.9 ([facility]) Procedures [facility] WEIGHT MANAGEMENT SERVICE REQUEST LVL 3 EST PT, LOW MDM, 20-29 MINUTES Jerod Deleon MD [address] [place] [address] [address] [place] [id number] Referral ID Status Reason Start Date Expiration Date V isits Requested Visits Authorized [id number] Authorized 12/31/2021 12/31/2022 10 10 Additional Source Comments INFORMATION SOURCE (unrecogn ized section and content) DATE CREATED AUTHOR 05/28/2020 [facility] DATE CREATED AUTHOR AUTHOR'S ORGANIZ ATION 03/11/2023 [facility] DATE CREATED AUTHOR AUTHOR'S ORGANIZ ATION 03/11/2023 [facility] DATE CREATED AUTHOR AUTHOR'S ORGANIZ ATION 02/11/2024 [facility] DATE CREATED AUTHOR AUTHOR'S ORGANIZ ATION 05/31/2024 [facility] DATE CREATED AUTHOR AUTHOR'S ORGANIZ ATION 07/02/2024 [facility] FOR RECORDS PERTAINING TO PATIENTS WHO ARE [...] BE BASED ON THE PRIMARY CLINICAL RECORDS. [facility] [employer], [facility]. provides no warranty or guarantee of the accuracy or completeness of information in this document.
[2024-07-09 07:47] VITALS: BP 150/95; PULSE 89; TEMP 36.4; O2SAT 99
[2024-07-09 08:20] VITALS: BP 150/89; BP 154/84; PULSE 81; PULSE 85; O2SAT 99
[2024-07-09] MEDS: IOHEXOL 240 MG/ML - 10 ML VIAL 12 MG INJ (08:26)
[2024-07-09] MEDS: BUPIVACAINE HCL 0.25% PF 25 MG/10 ML VIAL 4 ML INJ (08:26)
--- NOTE | 2024-07-09 08:26 | W.PM.PROCNOT ---
Date of procedure: 07/09/24 Pre-op diagnosis: Pain due to bilateral sacroiliitis Post-op diagnosis: same as pre-op Procedure: Procedure: Bilateral sacroiliac joint injection Medications: Bupivacaine 0.25% 3cc, kenalog 40mg x2 After informed consent was obtained, the patient was brought to the medical procedure unit and placed in the prone position, when a timeout was completed verifying correct patient, procedure, site, positioning, implant, and/or special equipment.? The skin overlying the area was prepped and draped in standard sterile fashion using alcohol.? A 25-gauge needle was inserted towards the left sacroiliac joint under direct fluoroscopic imaging.? Needle tip was advanced until the joint was encountered.? We instilled a total of 2 mL of solution.? The same procedure was then completed on the right side.? Postoperatively needles were removed.? The patient tolerated the procedure well without complication.? The patient reported reduction in pain symptoms postoperatively. Anesthesia: Local Surgeon: Karina Rodriguez Pathology: none sent Condition: stable Disposition: no change
[2024-07-09] MEDS: TRIAMCINOLONE ACETONIDE 40 MG/ML VIAL 80 MG INJ (08:27)
[2024-07-09] MEDS: LIDOCAINE HCL 2% 400 MG/20 ML MDV INJ (08:27)
== END 2024-07-09 08:27 | disposition home or self-care (01) ==
PROVIDERS: PCP Family Medicine; Visit Provider Anesthesiology
DX: M46.1 Sacroiliitis, not elsewhere classified (principal)
CPT/HCPCS: 27096; J0665; J3301; Q9966

== ENCOUNTER 2024-07-24 11:31 | Outpatient (OUT) | payer BC, SELFPAY ==
--- NOTE | 2024-07-24 | CONS_ITS ---
PROCEDURE DATE: 07/24/2024 PROCEDURE: Trigger point injection erector spinae muscle bilaterally at the L4 and L5 level. PREOPERATIVE DIAGNOSIS: Myalgia and spasm of the erector spinae muscle. POSTOPERATIVE DIAGNOSIS: Myalgia and spasm of the erector spinae muscle. SOLUTION USED FOR INJECTION: 2 mL of 2% lidocaine, 2 mL of 0.25% Marcaine and 20 mg of Kenalog, total of 5 mL and 2.5 mL was used for injection at each location. IMMEDIATE COMPLICATIONS: None. PROCEDURE: After informed consent was obtained from the patient, placed in the flexed forward position. Skin overlying the area was prepped with alcohol. 25 gauge 1 ?? needle was inserted into the left erector spinae muscle at the L4 level. Needle tip advanced until there was a mild twitch response, at which point we injected 2.5 mL of solution. This was repeated in a similar fashion at the left L5 level, as well as on the contralateral side at the L4 and L5 levels and into the erector spinae muscle. Post procedure, reports reduction of pain symptoms. YADIEL
--- NOTE | 2024-07-24 | CONS_ITS ---
CONSULTATION DATE: 07/24/2024 HISTORY: She presented today complaining of 5/10 in her legs bilaterally, namely her thighs. She reports the pain increases with standing and walking and laying in the supine position. She denies any change in bowel and bladder habits and reports that she may have some progressive tingling over her lower extremities, more significant on the left side. CURRENT MEDICATION: Includes Mobic and ibuprofen p.r.n., tizanidine 4 mg at h.s. and Zonegran 150 at h.s. EXAMINATION: Notable for patient having hypoesthesia long the left L4 and L5 dermatome, very mild weakness of the left quadriceps, anterior tibialis and extensor hallucis. Straight leg raise was negative on today?s visit. No signs consistent with myelopathy were noted. Patient had severe myofascial spasm of the lumbar paravertebral muscle occurring bilaterally, worse on the left than the right side, involving her erector spinae muscle. IMPRESSION: Patient appears to have chronic pain secondary to L4-L5 radiculopathy, complicated by myalgia and spasm of the erector spinae muscle, worse on the left than the right side. RECOMMENDATIONS: I recommend a trigger point injection of the erector spinae muscle bilaterally. I recommend aquatic therapy and to increase her Zonegran to 200 mg at bed as tolerated, and to follow up with the neurosurgeon. Of note, status post trigger point injection, her pain dramatically improved. As part of providing excellent, safe, comprehensive care, the following was completed at our patient's visit: 1. A medication reconciliation and review to ensure accurate knowledge of current/active medications, including asking our patients to inform us about any oyqa-yrs-qwvzffc medications or herbal remedies/nutritional supplements/alternative remedies. 2. A review to specifically ensure our patients have had annual screening for: elevated body mass index (BMI, see intake chart for exact total), tobacco use, screening for depression, and screening for unhealthy alcohol use. When screening is concerning, patients are provided with education and the specific recommendation to discuss the concerning health issue and treatment options with their primary care provider. YADIEL
--- OUTSIDE RECORDS SUMMARY | 2024-07-24 11:35 | XMS_ITS | CCD ---
Author Organization [facility] Care Team Providers Care Food Critic Name Role Phone GAVINO, ARNEL Admitting Unavailable GAVINO, ARNEL Attending Unavailable MEENAKSHI SAMMI A Referring Unavailable UMANGEREJaylene, JEROD Primary Care Unavailable IA Procedure Practitioner Unavailab le UNKNOWN, PROVIDER Surgeon Unavailable Freddie, Zayda Admitting Unavailable OvEdwardo goldsteinison Attending Unavailable NADERER, JEROD Referring Unavailable NADERER, [...] Sarabjit Admitting Unavailable Blanco, Sarabjit Attending Unavailable NADEREJaylene, JEROD A Primary Care Unavailable Blanco, Sarabjit [...] NADERER, JEROD Attending Unavailable Giedraitis , Andrius Vytautas Attending Unavailable Giedraitis , Andrius Vytautas Attending Unavailable Giedraitis , Andrius Vytautas Attending Unavailable Giedraitis , Andrius Vytautas Attending Unavailable Giedraitis , Andrius Vytautas Attending Unavailable Allergies Allergy Classification Reported Allergen(s) Allergy Type Date of Onset Reaction(s) Facility (1 source) No Known Medication Allergies; Translations: [No Known Medication Allergies] Propensity to adverse reactions to drug (disorder) [facility] Repository (1 source) ALLERGIES NOT ON FILE; Translations: [ALLERGIES NOT ON FILE] Propensity to adverse reactions (disorder) [facility] Repository Problems Problem Classification Problem Date [...] Range Facility Orders Onlyon 01-18-2024 Orders Only [id number] Binta Graves 1980 F Date Provider Department Center 01/18/2024 ZAYDA MARTINS ONC DCC No family history on file Normal [facility] Coding Summaryon 03-03-2023 Coding Summary HTMLBase 64 ToxbspnrZAy6vPu+PGhlY WQ+YN6JAAEpW43otAUxeK 2lZ2SWNKjQXxfzZTWUXYv WTePeiuOxJR3dxIAxOXWf IC8+SL6sUEIkGurftRZsl 4Y2sQL5E50uug4tSMliuB N7GPFzCjIwafqca8szkRw 6IDcuNmluOyBt EYXxbW89JEA7oX24Tn61k BGljIJte2akbGp4UsTzOV PlSCN3dMhhIWevn8YgPKN sF95shOFta7K2 LMHeaQjkaVEiWeDsvMP6i O2bFNebrgddh9mdnkgxUv g3eo39wUXgz2P6nHA6E2A ztvT9HHNdqQCo ZicgdCQVhJ3czeerf7owr rnaTpNgKQPoWZf1JUy5PT ZayYnaHtAoXH48WRM0SNN fgbAyO0IsZOEy fRwzElT3c8F8Tm3EY6VWV jyaD9BJCYPTLYlqjHQ+PC 40xu95O0CsMgrpCyy7UNR mZLD4dHJ8fN3o ODChTEhhm5J2cPO0D6Qly tBczz8xp9bkRWMoJOgfR9 6gxGWoq1U2OKXcaIG5EIG bgOjtTvUnpM90 Oyc+DFZusRnxw1EwVontf 7jup0hsbMv1ZjiwLCTfww PhcKoeXJE7z4BsZa1gTTB ksHR4hIG5hW8o FeQiUgO6UTecM613ZiKsn GOlQlycD76yW8KvcEM+PH QfWwq2BHGwoMzqRO3oB3G hZGRpbmctbGVm jTfrTQ3dZDHfmsgeCKPiu C6sWLUuX5l9DdHrUzS5LG igV9ZkYGQdbzcfQs76lV9 lSvWlBuC2SQde A8PmrtE1QOLcmEQfJJdyP MD6W44fm9M8XCVzKHZeWV P8mHS2pI4szWmlxjjodAV mdDsgdmVydGlj JXrmEDedR152GYXgbZvcR kNvZGluZyBEYXRlOiAgMD YvMDEvMjAyMzwvdGQ+PHR lWSU1nZbkNCGn eTZzFXnyNm5zsIngwVsdH H1nZOFwqwivMZZehH1gSC FcqSOrbEwjSJ6fIHWauvd jj470EhXpJBC3 EWTtpKBzR5VzeG7tAmPsO TJhCWSlG5HjdOXcVJipU4 28HUmuPdP1TQKnbhHjA6H sLWFsaWduOiB0 n2J3En7Nk7KgxpbhB2Gof ZVcIgNnLsobPUj1V2QaYh wvdHI+KW37UVJpQO96SMq 5ZZW4sCxgVEvp THZcD1JmcE7kSnYfKGQcV GRkOyc+PHRhYmxlIHdpZH RoPScxMDAlJyBzdHlsZT0 bJb4lTFUgPVVc zYzlgMYbAqKhu9yaWBFeV NznCK8joDplP0YkzXH8PE Rpf2i5Vh16W62fC8PytDO +CLObsUZ8ySM1 rE8sCbVbCaF1UTklB798T lVrkBRaAwmqh6zaa5aigM b8GfW4ABPoupSzrCqtVXI 7e7KsIj42I61x IHdpZHRoPSIxNSUiIHZhb Rsvtp3vrU9cIp3+PGNvbC R1nBL2xW7iCnCkXoU3PYa aD678UdBhqZEv Srawi8oat5xhsZy9ZkSjZ KDoecWqeEtpRJY9z5CyRy 56D3OzuMpii5DyUbl3jf7 5tBWhb4Z2bHO7 B9QcDFKlvhnrbXMuvNjfA M8kURFccnmvUREwkN2uTP SjT1g2BvHkCuP2YTryJ7Y bpyC0YGZhzJDo BVUjoXAXwH4hldtmh4dcd jgsRuPgSLJkTNj1VDs1HV LzzQyrGfMpEMB4GuJ5JMJ 7iCRclJ8vkWho rxwffZ6qLeb+ZAL7kMOuz MMMGT3dKpektFV+PHRkIH L6bVuqWNhmUYCuqG4iRQE gL6p7MuOeQsS5 LFgvY1JsqcE1BAJbfCUtP MImlXZKkE7kckniz5tfss fuPlNeHRMqWTp1OLc5QGS saWduOiBsZWZ0 KjI6FXD3fOMbuP4ivIisr mxajQ7nJou+QmlydGggRG B3KIc1I1VdVwc9SKTekIh tOH7ruLKzILyb Fs6gsJpqcRvvDK1vWCVxm dphz603SvWfd9fsZNSznH VnILvjAKQ2I25ng6Q5LSP xVBRfJBT7cDW8 kF6zfIdvazlogRSzjYfdd vKioBsyQZazGSvlU131QT KudKcuEjRzEUq2A7BxLzk 3QORyrRyeKB5s sAJfLRwgHx0avYbkzZpcD S2jJUTyjuzqb636QgKaj9 kjKAUfnKWbRZktHOM3A31 ie3C3NQWrDTEp NBI2aCL9cR0nvPdnbvmeq GVmdDsgdmVydGljYWwtYW uyJ334PNXqrNtdHbGurGw 3A7CpZdb6BSNw bPmxON0jtOJrQJwhOy8is IdemFwiEU5yRKBzncick3 36DeZcx1inUIPmyRWzVYy bMNW7S33nv9L6 CVZbGIZdXYA1dSK3pX5mb GlnbjogbGVmdDsgdmVydG ptMUxmFFgoE158CYYccIm nPlBhdGllbnQg LWrdRGk0S5FeZyjykZT+P O40CTJkNJ37vUKniYPft7 ngsCh0SeRtNCEdJZZ4aGc vZBrvg3YsQGPa W72rzZTay8J7PFVdpOzvf MSeNqBltDB6uW8zSUdybg rvo6icvxvvCftro4tdqt0 6tY90P91dTDor ZHRoPSIzMCUiIHZhbGlnb j5rnO9kGx9+EJThdQI4uX I6pE1dLBDfDyN8EDnuK63 9InRvcCIvPjxj i9paw2gdwLv3LiY2RFVau mBsjFhsXBC4a5FzXt63P6 9sIHdpZHRoPSIyMCUiIHZ yxMxibd3ttW3n Ii8+TESfaLD0eFC3dN4hB tKiSiQ7YVieI520IkRgmU XcRpuuI12nB1MpuDW+PHR cOky5QRTzlUfx CG1npDJgJOzqVn5mLOP9N hJxZpHnSHfkX0HqVORhbo vsghydmVU9KCCvETFswN7 7Eb3rfIuvMLOv jENDoZ7lcjxrn3rwaaibI cZeGVUmEIf4FNk2YCRvwL wnFmHdDUK2ToB6QOI3qCF jiQ8rtXayxbcv hI0tX3LhCCBqfjlvHb37x G2rKkBlKjM8PZduJks+TU FSVElOLCBFTElaQUJFVEg cZI3BDZ31DM25 lIUfh1A8lCG8J6NpPCJjb grzecvkgUX2JNZhFUZavL 14xCKrALdzLm4jk8X5d76 9GXWpWKVxfD15 Tf4psQmrAKPvcECTuC8ua gjli7boxsyzQnZcJOZtJT e1RFl0NTOwsTxsZzPtYGM 8VrG9HTG0mULs cQ0fkTzggwcpkR1vJki+M ZnkUIZtOYw3ANvteOH+PH IeLLF3lNtfZEcxWQUkiJ5 sRPEuV3f7XsOx VwJ5EKxfG9PpZNMdjijgE f18jK2iOtTjFtH8XGeuL7 CaiwX2IPUzeSTfCUpaUOV 6T44pe8A0KSZv LQEeLXE7jQO1wS4khWvif jogbGVmdDsgdmVydGljYW ekOQhvF615UQRgcGabNkB tPDhsZNQdNK71 TB84eCLwb6N2qEE3D3NpB XByidfwmgqdlBS8VTCxDF IbcF97gELzBIifXe1rp6I 9k083SFKnGYDz lI20Yo2dgZvaABFdeGQRg L2ebyqtx4wlnknuAnIlGR NxFPw8JLi9NPUnxGumNsR hIZX3YcH6TVD0 iGVopZ6hxBrkqpujkN4yY yc+HwCHASfYRS23MR82nH Tej6E9cTD9C3IhHMOxins xldrvvYA6TFOg QCJsmS49nWScFNvcRe7mk 7I5l994WIYcEVKdrC97Jw 0lkZboGYMoyXFCdV7vncm sx4zfymnhMmZw LRPoPHa7BCz8QFPdtHwgR lLsRER8PvS9ONV2tMYkuB 3xyPnpjellwD5bJdi+T1A 4C1WeKqzvbYL+ WV62DESsZP12mCSkfYVvc 5bltZl5ByVmAVSiXUU6lV xzTWbkc3FtYTEvR35asSZ xn8X5STAoxRgi oZZkNfSeoJC6wE0jYTiqe byro2uzskquFlbul1hchg 53sL28Q57dMOifTQDxTQX zMCUiIHZhbGln xb5rgZ2kNe1+LWSgrZA4a HJ4dS5dBrWtWkJ4PBkrH2 29MyAigFGrSucdl8ikr9t dmQg6JeRoBKZx eaOdiCffHPX3q6MlVb49B 29sIHdpZHRoPSIyMCUiIH GetGdkxa3jhR2eCw3+PC9 xy2othk61gP59 dHI+BFCzKKC4kZrwLDesM YJhpE3bARpxYwK3JUXxHp IkkH26sFOlNQkzPc4maPj viXnmGY4zNHJe wokku508SoChm0gcDLGbx ZEfKCwaOUZ9V55ez7D3GF NuCKJkBOI8rHS0sC1koWf nbjogbGVmdDsg aaSlePxuLGsvCOcaF200U WLtcDocHgWifHUxU2jzln AUQJ5vUzxvpIC+PHRkIHN 0eWxlPSdwYWRk nU9cBNLaJ7f7PqIjVuA6H JmcD9CfazO5DEMzpOCzYK FrvEKHhR1syvfzd7xhqns gIzAwMDAwMDt0 WEc8GMHixJngCgVrRSX0R aG5ULO7sNBpfU6sbWgyik aysH9rEzm+RklOOjwvdGQ +FSJrYSS0vPjx PYfjGTQqfO5fJFPcT2v7N nDiViD7BWdcY3GlumV5GZ VppEEgTHYvrXJItD1zcpd ds3jveyplBqJx CWInICg8ZYh9CDJbrUfeK pIyPOA2LzX1DMU6gEUwmC 8ttWhqkgodmS3rPox+TVJ OOjwvdGQ+PHRk VGO0wXapKJfpCQHplC6jI DIbG1m3DzUbWmV0NAzfF5 TsthX4IJLzrJEtPXZrqXU RbI4tdwezr7lt ostqAkLzXKMeWCf0IAi0J XAbrFadNnTvGKB7JdU4CP C2pULjbK8eySkijfnfbU7 wOyc+RCQ6KWQ0 WJ54FQ90V5OzOwnuyOFnp +PHRhYmxlIHdpZHRoPS iqTQTdDsDspWaoVB7iNy4 yZGVyLWNvbGxh cHN (more content not included)... Normal [facility] QUANTIFERON TB GOLD PLUSon 0 02-27-2023 QuantiFERON Incubation Incubation performed. Normal [facility] Comment on above: Performed By: #### Q NTTB #### [facility] [address] [place] [address] Dr. Shon Barger QuantiFERON-TB Gold Plus Negative Normal Negative [facility] Comment on above: Result Comment: No r esponse to M tuberculosis antigens detected. Infection with M tuberculosis is unlikely, but high risk individuals should be considered for additional testing (ATS/IDSA/CDC Clinical Practice Guidelines, 2017). The reference range is an Antigen minus Nil result of <0.35 IU/mL. Chemiluminescence immunoassay methodology Performed By: #### Q NTTB #### [facility] [address] [place] [address] Dr. Shon Barger HEPATITIS B SURFACE ANTIBODY , QUANTon 02-26-2023 Hepatitis B Surf AB Quant 14.2 mIU/mL Normal Immunity>9.9 [facility] Comment on above: Result Comment: Stat us of Immunity Anti-HBs Level Inconsistent with Immunity 0.0 - 9.9 Consistent with Immunity >9.9 Performed By: #### H EPBSRF #### [facility] [address] [place] [address] Dr. Shon Barger MMR IMMUNITYon 02-26-2023 Mumps Abs, IgG 156.0 AU/mL Normal Immune >10.9 [facility] Comment on above: Result Comment: Nega tive <9.0 Equivocal 9.0 - 10.9 Positive >10.9 A positive result generally indicates past exposure to Mumps virus or previous vaccination. Performed By: #### M MRIMMU #### [facility] [address] [place] [address] Dr. Shon Barger Rubella Antibodies, IgG 1.73 index Normal Immune >0.99 [facility] Comment on above: Result Comment: Non- immune <0.90 Equivocal 0.90 - 0.99 Immune >0.99 Performed By: #### M MRIMMU #### [facility] [address] [place] [address] Dr. Shon Barger Rubeola Ab, IgG 116.0 AU/mL Normal Immune >16.4 [facility] Comment on above: Result Comment: Nega tive <13.5 Equivocal 13.5 - 16.4 Positive >16.4 Presence of antibodies to Rubeola is presumptive evidence of immunity except when acute infection is suspected. Performed By: #### M MRIMMU #### [facility] [address] [place] [address] Dr. Shon Barger VARICELLA IGG ABon Varicella Zoster IgG 1057 index Normal Immune >165 [facility] Comment on above: Result Comment: Nega tive <135 Equivocal 135 - 165 Positive >165 A positive result generally indicates exposure to the pathogen or administration of specific immunoglobulins, but it is not indication of active infection or stage of disease. Performed By: #### V SARAHI #### [facility] [address] [place] [address] Dr. Shon Barger MAGR Intraoperative Recordon 01-03-2023 MAGR Intraoperative Record MAGR Intra-Op Record Summary Primary Physician: Sarabjit Blanco MD Finalized Date/Time: 01/03/23 13:44:55 Pt. Name: JELENA BINTA ANN /Sex: 1980 FEMALE Med Rec #: [id number] Physician: Sarabjit Blanco MD Financial #: [id number] Pt. Type: D Room/Bed: / Admit/Disch: 12/29/22 [...] Cox MA Role Performed Surgeon - Primary Party Supply Specialist Party Supply Specialist Time In 12/29/22 08:38:00 12/29/22 08:38:00 12/29/22 08:38:00 Time Out 12/29/22 09:05:00 12/29/22 09:05:00 12/29/22 09:05:00 Procedure Radiofrequency Radiofrequency Radiofrequency Ablation(Bilateral) Ablation(Bilateral) Ablation(Bilateral) Last Modified By: Tiffany Tyson RN, Rebecca L RN Votino, Rebecca L RN 12/31/22 09:51:06 12/31/22 09:51:06 12/31/22 09:51:06 Entry 4 Entry 5 Entry 6 Case Attendee Eveline Chen RN, Regina CSFA CST Mitchel, Bradley MD Role Performed Party Supply Specialist Scrub Personnel Anesthesiologist of Record Time In 12/29/22 08:38:00 12/29/22 08:38:00 12/29/22 08:38:00 Time Out 12/29/22 09:05:00 12/29/22 09:05:00 12/29/22 09:05:00 Procedure Radiofrequency Radiofrequency Radiofrequency Ablation(Bilateral) Ablation(Bilateral) Ablation(Bilateral) Last Modified By: Tiffany Tyson RN, Rebecca L RN Votino, Rebecca L RN 12/31/22 09:51:06 12/31/22 09:51:06 12/31/22 09:51:06 Entry 7 Case Attendee Froy Ramos RT (R) ARRT Role Performed Wet Primer Powder Blender Time In 12/29/22 08:38:00 Time Out 12/29/22 [...] Agents (Im.270) Povidone-Iodine Prep By Vida Figueroa MOTOR VEHICLE OPERATOR ROAD SUPERVISOR Prep Area (Im.270) Back lower Prep Area Details Bilateral (more content not included)... Normal [facility] Coding Summaryon 12-30-2022 Coding Summary HTMLBase 64 SwanzubqKZy2hBd+PGhlY WQ+OA8FDNXbA60yiCIpcH 0GU4zFGS2UEEODFRFOLC5 GVN3jjOR8HJkbG0QykfQd IdawpYQcEP05QSa4COS0i HllONcubN0ceUEeT6i3Cj KeYV20tC78RCmmISZcKvM 3LjZpbjsgbWFy T2ahMoKfqSLzMqu+PHRhY mxlIHdpZHRoPScxMDAlJy QczUwmNP9sZi6xBGQcBRW vbGxhcHNlOiBj b0ttVZYxQLkyXK5fnPuqF 6CrrAH3JBWrv3v7Sr73hM I+NIZrWYT1eDniRDjln40 3CjLsf2sySTF7 pBQqFUsqXLM7Z87bj3H4J UBtHGEwWJO2hGL7nF1ohK ifbafxD0LuuSLhKrF9GJE 3dHKlnT1mbBol uvztvX3tUnh+S49OHO9PR DGICG9OWpu0V1HhEqkudN I+RT83GJJpDE20wSSxrBA rz2bixCr5KzZr XTVdQUQ6oIvbZDoiy2AvX RJuC09fnYLml5N9ZSMfwI tgzNNsTbSeyFE7tW0yZHz iijwjz7vzhsrd Vsczp5ehzk25dI18X13wF EfrZWAoWZW3FQCvIFEvbO xnhb3dpE0oDu0+RFdua8s tf3agtKq4KoJm RVGfbiFotAorXPE0x4AkT w40W7ZufJorb3EwLmh2fj 78wADgq1K1tDR0SLhpFJE oxZ3eSNaoWzQ3 OWAwBwOwqX74fDMlJYwwV x8bsRwdeTibCX8hHBSsmo kpBVYdyO5aKNHmoXDzwOw pNQ3rRTUgavtl e936SgWgUWW6QLQsyAKpU 3YxpP7jGlErDNHrWLExP4 QggQMcQLtgN447RDioIgK 8WYMwefVgY6Ii IWJniVblSqR9h7I0Uh7Gb 2IyfqdiSWT9EJdjDHBgWg XxSpHfPdH5P3EiQgc5JUG caOdpOM1iY0Zr IEOwonoypamtqJK2NSVtB ERlzA00sWCdXQcdOw8ga6 Y1u041JICaQGYqpH12Mm4 udDogMTBwdCBU zQ7lqxjgv8lgeyoaSwHnP IZfDZi7QFv9VMOfgIvrXf RfTWT4NuR7QTC8uNTrcB3 gnSbqjdvyrZ6y Oyc+E30fgO5eBNN6OLJ7q sxaPVUflxRdYH94BL80E2 RyPjwvdGFibGU+PGRpdiB tzEyxEE2oYoZk j8sik8PtJEgfA0XaCCJtM XsoDbe0YAOzNHO1rPN0cS 2pCRApDUmot7Y1rJD3I1E efrQpue5ci2vz FZFbKBihW26wkZHzd2X0S SKaqQJ8PTKnoGhxWsKvbQ 93Oyc+IRSdzZtmk8GmQro rj9alm6ptsFv4 FqVfHQAyzwFyyZwmCNZ3f 9TqMy61S42tQMdcUFYbFE MaTTKeWVDpvCebls7xlL0 wIi8+PGNvbCB3 sXE4fA5uWGVtTrN3ZEzmD 658YoXhbMVyDwdna7hjc4 klcIs5BqTzCNOsiuBcnBd mYHT9g4PdLf87 K45hBKhgCPKbQBLjUFKeG LQogLokwu0ymQ3tOq2+PC 5qh0rwpv69hI05cRK+PHR jYSM6hTrsZOxa IURqhM0sXLbePmX4WUNxB eGgmX32gJMuUBrrQn5byG umlWujEP2tXDSpzdndv76 9CnKus8hkSQNt rTIoTTphHKH5I07vl4M8W IQeFISvXFC7cGP6vE0ckE lnbjogbGVmdDsgdmVydGl jWGwsHErbK348 IHRvcDsnPlBhdGllbnQgT rFeTWa7E5BgRxr8HMKrvP yiRV2bvEIvNQgcTs9nsOj pkIzvQJ1wKEGa tsbop778KiYtz2lzDFDoo HTqPBgvTZA7L11vp0P2RM LaANYcGPS1kZT9bK2puXx nbjogbGVmdDsg vlNitUgaAYfwJJdjV682Q HRvcDsnPkJpcnRoIERhdG R6YT45FM30fWTzm9Z0uJZ 8X7XkWSIomdof phpysEQ5TKOuFLRujY93I n4qzKedPe0iFGZiOSS6NZ UfqBIbB3CodW4lWpVaJFP wOCSuS5VdlREl AYqkV705YQmcIjD3EQZsa vQhV0XnTXJqnJisEhN6l7 C0Rq6EH9L3DY45QR84rSQ dz6K4eHZ1B2Yk PSXehusjmtyjkFT1VAChQ CNvaS38Kd9cfXqfHo3pWO EbLZP4QTGzmADnF8RuvE8 yOiAjMDAwMDAw S4CgsYQrKTocF457QUwaF hR2BUQqxwPlM2GtKNLxnX okWnO3h2H6Hv5XOFg8MC5 4VG23lQWyv6F2 kUM8K4YmYSQxbbprbkzqk IB3KJMzRTRodS77Px9yrB akRl7jDOQuGOJ4LORneWE yH1StqF1yTyDo ZHGoKPZhT1AumANjSQeoG 450FCayFhT0GEDnpaAkG5 BaYCUmiKdwEaC3u1S0Cl6 OPRBrSS57GNH9 qDZ2ON89EM98X4PdRntxj GFibGU+PHRhYmxlIHdpZH RoPScxMDAlJyBzdHlsZT0 lBh9kYVIeGFYj cFtjtPSsYoDoq7etRSEpI LngHD7mvPttZ7GhtAI9UX Xxx3e7Nk87M33xQ6GuuNV +CFKezTC4kZW6 xV2fViLvUzM6JOmcF118J pCrhXZdQiueh7jpi0lkxJ m2HfA3QHMaqcNgnOeeUJY 0w1IjPz49S24c IHdpZHRoPSIxNSUiIHZhb Zltui8ncL0iXe8+PGNvbC W0aYS6jW5gBeHeAeD6GKs oZ708AlBslWHi Liofj7twe2qlqQt0SvMvB PXeanEtoFtuDYQ8b0QwPn 32W1BlyEpyp4AgUbn8ew5 9eMWda2R4zIT7 Y2VjBNEnvgxpyPHbjDslK C0wAOCqvpmmGAStjR3nNB VlV5s4OyVwDkK2YGhfO1O tozI0KNPkiHLo DErqCPL4D37zi3B9VIZbX VAkMCJ7yUN1cT5qxBxuke ogbGVmdDsgdmVydGljYWw dPFtdH683MEUf wVysEACmcZ6qNWWwaSVrj FuuOX6dSACgxklqRv8QMd RJTiwgRUxJWkFCRVRIIEF OTjwvdGQ+PHRk WVY4wCnkYHgdCBGraD5xR IYqG8w6CwOtBdD6GZlbK3 BrHHCwhzwdWt72xF5iInM dLrY8ZUlmH9Xc ylL1CUXwmJRgRFbyNAE0M 26sr9D2POHbXHGaEPD4hN A7iN8rjCifsbpisDNzoQy gdmVydGljYWwt FLeqA468NCCaoOnkXdE6Y fNlQlO6JOK4S1JvPau8TW MwfNalKR1rmIUyEZcoKq4 dfQxnkGvuBW5b XNDrehykOIGikK3eQLKcl JQwyTpkDF4pZWMxzlczo6 72LiHuORK1XZCrbDEeJ1I ebM2oXaEmNRMe HREyS8QvlEJkCMuqF363I FlhNiB0CBKjufClS0BxIW FqjDrtJkP7w7P4Tt77IaK ZZWFyczwvdGQ+ XIUsOKQ0bAxmEVadESPsh C0xHLOrX8s2AmSpGrI2QS bvN0CoGTTpqwecGt66dG3 vTxAmIzK8ZFyg G3KidqM2ADFihQJhCDqmR OC7J26di6R0HBViIFEeNA B4hVC2vZ0ogBcdbngyfSN mdDsgdmVydGlj XIltJEmyN483TXMuvWyyJ kZFTUFMRTwvdGQ+PHRkIH X6yAfuHXrkRFGdyS9iJZE wN7m1WrAfZfW7 OVzcZ9CvDKHljnrmFl51i F9xKfTiQyB9YBrkD4Wjvi Z9SHFnqJLvBFklLQY9R32 ss1X9KMFrGXBf LYQ6dTT4kD1lvDingrndq GVmdDsgdmVydGljYWwtYW vqM799WOVzyEhsDxFzoRU GiVJnOOR4JO77 WM03B9NmEidivUFaaET+P HRhYmxlIHdpZHRoPScxMD YpMyMwuPehVQ3nPl5vNTX yLWNvbGxhcHNl LeVco5jjNKWwTDiwTI7zs EnjA2LboXO6RTMvt8n8Ot 40E04tL6RuxZS+PGNvbCB 8xVC8hT3iPpBo QiC2KYtrD921ZvBanOAvA oqjf5owa4oxjMf2DgNiER MezaLtgYtfVKL4l2XcUv1 0J39wKVpaJTQz YSCfXQRcAWBfzUralf8dr G9wIi8+FFXaaNA1cRY0nE 7dFjWkQlI5CBuhX232NjM rfYAyBzelR99r Q6OnzJJ+GMVgMfy8GQKyy BtcNI2rfZPrHXfhWt7kVA T8GjUrEcTvXIopJ6OlCEP pbmctcmlnaHQ6 BFDgTIKutE98Aa7dpNshJ j0aSZRzLVW2QJWoxXHzM0 XdvC8vNiTeLANjVGHwU0R xgSOsSGbvN957 OUjlMeL6TIKhniTpN1RyZ RAcgGkfRxU0h3B6Qa4VaZ kndGPxKS4vJnKjEEq9U8M hNrw3ANQhwKdo IL1cgMBaVDvsEq9kfWwoz WprCG2tNFDkpaanr540Rk Qbb5pnWDCecGIvETkrYBY 5E74dg3L3GRVc TGRzTTC1jTW0qO8qrGgwq jogbGVmdDsgdmVydGljYW weGImmJ401FOVxhNxnAeT LBvn3M8QjTon1 IYMqrIvsKA5vfDPuFTrlN x6ljGbeiRzySZ2zTVQfer bpw915LvIrx6viAQBmeND oWMwdBFI7V35i g8P4JPNyXFQsNTL8cYQ6j I2qbNyvodhluAHlaNdbdj AsfIifYPfaICyiR483PIL qlIrrYs5ZGlr4 W2MtVyy3WOHcxIimTB9dy MCxWEmpQe7rbNopyLjdQQ 0aUYQzunepr248CwVsl4t kIDEwcHQgVGlt PVD9K20mz2T7JDKpJWOgN YM4hSX5kO8mdRtxowcxmL VmdDsgdmVydGljYWwtYWx xH961BCRlzFle PlBheWVyOjwvdGQ+PC90c u25V2WiWhjyVzm6VQAkPS W8tDR6xZ2sXGBtWFoac1Z 7vWJ9Q0SgfzBv ci1 (more content not included)... [facility] Consent Formson 12-30-2022 Consent Forms [id number] [facility] Anesthesia Noteon 12-29-2022 Anesthesia Note Patient: [...] on: 12/29/2022 09:33 EDT] Jalen Hagan MD [facility] Anesthesia Note Patient: BINTA GRAVES Age: [...] All Problems Lumbar spondylosis / SNOMED CT 967775484 / Confirmed Anterolisthesis of lumbosacral spine / SNOMED CT 262722350 / Confirmed Histories Family History: No family history items have been selected or recorded. Procedure history: Facet joint nerve block ([id number]) on 12/15/2022 at 42 Years. Comments: 12/15/2022 8:01 Gail Mello MA L3456 Social History Electronic Cigarette/Vaping Assessment [...] Oriented. Review / Management Laboratory Results Plan [place] [employer]#( A) physical status classification: Class II. Anesthetic Preoperative Plan Anesthesia: Monitored anesthesia care. Anesthetic plan, risks, benefits, and alternatives discussed with the patient and/or family. Patient verbalized understanding. Informed consent was given. Consent was signed by the patient. [Electronically Signed on: 12/29/2022 08:45 EDT] Jalen Hagan MD [Verified on: 12/29/2022 08:45 EDT] Jalen Hagan MD Normal [facility] Inpatient Patient Summaryon 12-29-2022 [place] [address] Patient Discharge Instructions Name: BINTA GRAVES : 1980 Patient Address: [address] [place] [address] Primary Care Provider: Name: JEROD DELEON After you are discharged if you find you have any questions, please, call [phone] ext [phone] to speak to a nurse. Discharge Diagnosis: Anterolisthesis of lumbosacral spine; Lumbar spondylosis Prescription Information: If you have been given a prescription for narcotics, seek immediate medical attention if you have any difficulty breathing or any sudden status changes such as confusion and sleepiness. If you or anyone you know is experiencing suicidal thoughts, mental health, alcohol and/or drug addiction problems; contact the [facility] 25/04 Crisis Hotline -Text 4HCHO ka 342142. If you received any narcotics, sedation, or [...] business decisions or sign any legal documents [facility] would like to thank you for allowing [...] for Disease Control and Prevention June 2014 [facility] MAGR Preoperative Recordon 0 12-29-2022 MAGR Preoperative Record MAGR Pre-Op Record Summary Primary Physician: Sarabjit Blanco MD Finalized Date/Time: 12/29/22 09:18:18 Pt. Name: BINTA GRAVES /Sex: 1980 FEMALE Med Rec #: [id number] Physician: Sarabjit Blanco MD Financial #: [id number] Pt. Type: D Room/Bed: / Admit/Disch: 12/29/22 [...] Signed By: Namita Roman RN 12/29/22 09:18 [facility] Operative Report - Surgeon/P reagan 12-29-2022 [...] on: 12/29/2022 09:03 EDT] Sarabjit Blanco MD [facility] Patient Handouton 12-29-2022 Patient Handout [facility] Test Urine 1on U Preg Negative [facility] Comment on above: Performed By: #### [id number] ####[facility] (DEFAULT)[address] [place] [address] U Preg Internal Control Pass [facility] Comment on above: Performed By: #### 3 [id number] ####[facility] (DEFAULT)[address] [place] [address] Progress Note - Provideron 0 12-23-2022 Progress Note - Provider [id number] [facility] Progress Note-Physicianon Progress Note-Physician DATE OF [...] to proceed. Sarabjit Blanco M.D. JOB #: [id number] [Electronically Signed on: 12/27/2022 09:06 EDT] Sarabjit Blanco MD [Verified on: 12/27/2022 09:06 EDT] Sarabjit Blanco MD [Transcribed on: 12/23/2022 09:18 EDT] [facility] Coding Summaryon 12-16-2022 Coding Summary HTMLBase 64 KqozrtnpDQo4qCj+PGhlY WQ+QF0CTLTlU34fuJNlqR 4HU8qMAV4NKLCFYUOLXX5 LNS3nvTX4XJfdI4GtyrMz XgppnQDlBC34XDs0DEK1p AvoDLnwdV0wgJYhA5n0Tm IpSQ34qO62UHtbJBUvMmZ 3LjZpbjsgbWFy H3dhIsQvcHBwNbv+PHRhY mxlIHdpZHRoPScxMDAlJy EomMfxMR6jKo6tCQJiZZN vbGxhcHNlOiBj f4hcMRAeYLudBR1mdUgbZ 4BtqCS5FRShi0z9Pu46gF I+RFBlSJX6rKqkFEuhc61 0HkGpt3upSCI6 mZPzKMgxIUK8H91pk0N4T DNmVGZxNSL8fIV3kW7xtU cvgymhX7EynHSyOfR5JTO 4oIYvpL7srUqf hjolbB7lLyw+X72DHB4SN CZWQP1FAyy7G6JqVncsnH I+BN85HTOfJU05mKQciQR ad1yozDb3DdCw YLTgZGW7eKrmKKnkp3TfF JYiE38bkMSgb9N7OJHepM qkoSWgPkYieRP3tF7vZEh auskau8drhgnz Pruki7znwo72eF13F43bT YvrCUUfZXS7AJMpVWUujF bnjq1daQ2uGg7+TNfiq2b fi2grsCr7HgWm GLDwpqDyeNziVWR0b6OzM r74L9JwwLmxj3RkVjt0at 62uXBqo1E0vRO5NMzdADF taY3uBLteIoU4 UUJxKrBgeD10jYRoXYeeQ x8ckVnubPbsFK4wRPEkpu wjQBRsyV6oKWZtmKKnmKz nCE0fKHRjhyes t709SaHuHNK2JPOaxETeZ 9XbtD8uKfVhGADwGLJbB0 GykNPtCLuqV166VUlzDgT 8VISlcnKpO1Um EWObsHksHqE1d9R4Mi4Zl 0KwocspCNR6DYnfQAOgCm M4QpStGgI3W1RrVja0OLB zgHioVZ1gL2Of YFCvdzvkmvqyeAU2NYXkX BJleU32jOWzENhqBa5bi1 C7h259GRVkUXLkkI91Ln3 udDogMTBwdCBU cB6nqlvzk5upmsrwLvTfI ROuSCu3FLw6JPCvdWwuTr KxMKP4BxR6PNC1fDLyoW8 sxKtnkkahxQ8e Oyc+X32ylW9bVQU5WIG7y eciMCDvcsXtAM23PM24K6 RyPjwvdGFibGU+PGRpdiB cfFpqDI8bBuBf e4zum9WdQUkjR0OdUPQgO IftRbq9AHLvCPF4aUE2aU 5lJXRhULguv1K7vEP1A9K hjbGfhr4kv0pn HDWbEFjkP56uhYCeq9E0H AMsmYR6NYXmkViuHpLshF 93Oyc+XMQjmWygr1DlTqv ml9ywc7vcxRk9 UvSxLQUnolPmxPfuLTO1o 0SlUh56O78oTDnxGSLgNZ SpOJTlFFGtgXqyty1riB7 wIi8+PGNvbCB3 sIN4rH2bEHWeMjU7RXeoE 880NrLusXCaNhghm9adc5 sgwTw0NeSnBNNppbTbtVe pCML1s4JxLd71 Y86xEJjmOQUjBZMeRKRmV XAudFklgk9duY2gIl8+PC 2sz5hhgm14vV40sJH+PHR hHQZ0pCzjULql MBAzxM1cPYmeXtR6WJDxG jNupG08mXMyHRouVk4seC abbOooLQ4sWZRpiqsjo62 4RbDsa1jqINVu mBMtOWllZRD3I75iq4U1G MScTUDnTZU2aHW4zH4xeP lnbjogbGVmdDsgdmVydGl yECwjNRrlR015 IHRvcDsnPlBhdGllbnQgT aNaZQw5S4HdKyg0CMFbcV crEM6uvOAtHYfoTl8ypVh iwXtsWI4yQWNc pghrk367WvKek0ewNGNcq ITtYTibHVB1Z77yp7G5UO HgCJHyYML0sKT6kT8kxZl nbjogbGVmdDsg uiOzgGzjDMvaCQrmV491Z HRvcDsnPkJpcnRoIERhdG O9LB12ZH13dKLpi5J4mEL 7V4XnOFVgjrhi kawldSY3QIQxHKMglR63L g2lmOkoRq4uIBBxQBS2DK MrnNHyW9SlaO5hWhXqKVC rRSReU6QelPHh RMnwE580BTiqXdQ6GFSjz uCsW0VvGYEynMzzSaX6j0 J4Be2GB9Q0LD43BS53lQM vu4R1gSU6O2Mu SKCtsmeqfirmaTU3JDLfY YNtbK07Kt2qpZrgBo9mOW QfLMY5MPWrxFXyD2EmxH3 yOiAjMDAwMDAw N5NobZXnUGavP843KNorG pA9MQVbdcVaS0AoIICfbM ayYaH8c6V6Dr1LJQz8LU4 5GJ14qFRyb5C3 kZD1R3GdUMWuzrgmqgoom QY1EVVaPSKiiX32Qa6lbX qfNf7rMAIkSIW0VUCdaCM aP5PfjV4rJpDr BBKkWFRyF9LwxPAyYYyjL 208CBtzOnQ9LOLqzfCyT4 CvWOMozJanUbU0s4S2Af3 HBLYvGE83HLR1 rLT4TH30IC30J4ZiIpbhw GFibGU+PHRhYmxlIHdpZH RoPScxMDAlJyBzdHlsZT0 jOb2oGIUwXIHl aLdzhXEiRwHek9hpNEXoY TtvKL1pyWwoJ8WcoHA2NL Zdn1t8Qp10S87rL7VmsIZ +NBEslAQ9wII9 zP9jKjKyPfL6VDqrE324Q gJotTLsRdrtb1iup9jppW k2YrA0OERwccEhoLxeJHT 9j4LvMc63M06f IHdpZHRoPSIxNSUiIHZhb Edtic8hvU4kDb0+PGNvbC R7jUO6eT6vMuAfEtX6ZPr fH859TmZssONf Nmqfe8ygs6kwfDj9GtBbL JYhioDgeIiyHBU4n9QhIb 95Z4VwdElkz5NgIdu0hl2 7iSNjp9U7dHY9 Y5ZqWVMyovdmmWWnbNmcY R8tQYKoeaxrFDKghS6qVJ KuB5f4IxKrRnJ0FUtzC3K gmoV9ESQbcHIr PDffPVB1Y72on6W3SGIlZ EXuBKN8eWS1xU2dbFrktn ogbGVmdDsgdmVydGljYWw oKZtiF419GWUy aNnrUIQwlX5jPSGtaCPeb ZpxLO4aEKWjjhkpQv2JWr RJTiwgRUxJWkFCRVRIIEF OTjwvdGQ+PHRk MUT7jBuzIWgxKEYyeQ9jA IGpT6x9WhPmJfH6KZaqO6 WxVHOrgjgiIm47lT4gHhG uGzD4LOvoX4Xj shG2ERNikPTsGIsxJQL2E 75sg6L3LEPtNETlFSW0eV C2vF4cbHsvxqtbtCFidDa gdmVydGljYWwt EEeiY644LEQvaJobKjR1D cGxLsI4IUT8Y9ZpLac1CG NuwQnbTA8aoVYsGLtuGc4 yoLzwiZfyMW2d ZKNukrjhXEHafM5yYBHcf EDybRneSC4oLFTdukngb7 53ZmBuJCC9ZOCcpUYoA7U jiB0dAeZiSSUv NRIoR8CkdGQvPOntV280X YlbZqL6TCDlbcRqY4ZdRB NteQamBcU9w1G4Ar83PzI ZZWFyczwvdGQ+ BYYiLOW7yFjdBFpjVRUna R1kLTGdL6h6CoYwOkD9EJ zlZ0OfVBAmxxmtKt34rJ4 vQrLrEhK0TZby B5MoxjX1XEJvjDCaZJkmP QJ3P18es7R8FGJyMKDlQN I3jJW3yR6arCcoyqifdDA mdDsgdmVydGlj UGsxIJekW099CBGhuJmxD kZFTUFMRTwvdGQ+PHRkIH U0dEomBNmuDYFtqS0bVJG eI7v7LpUcDsL5 HOigM5BhWDRqgbjoMy44s R1lRyHpJeP4EBgnK0Illx I6DPDtfTFrJXvyYGN4P31 hv5H8AMLhPASl OTA0yXH9xV9esRotwcrbi GVmdDsgdmVydGljYWwtYW keM846PVVtlFebRxOrxCG NiXIlHYG6LX64 OS42V6MhHlhbuDTeaJX+P HRhYmxlIHdpZHRoPScxMD DfJzZeiMtuFI8fRq0mVLE yLWNvbGxhcHNl UqMpf3wtFTVhKEiwFC2lp WywN9ZfzYE3GTYmr0z3Cp 87D21hW5KggER+PGNvbCB 0zSQ1dR3tEbYs JuJ9APfkA616CnHecIKwF qfzh2ump2cmhYu0XkBxKC CvyiHbdJmqADP2c8ZrKy6 8J54dXKohWMZb VXQhZYYkJNJdjOapvt3mc G9wIi8+BZZqzHF0qCD3qH 1lWrSmArC7VBcrZ719TzB qjUNmWggaL70b G0FebDE+JFNdZbc9DUPmi RrxFR4urEQdXRezQd3hDO G9OpLcZyJnKYwfF8OxUMM pbmctcmlnaHQ6 AUIdDADkyR15Rw0leMgrA v2cNBDdIJM2YTHwcHFbU8 RdkJ4mNuWnQLXlZTQtR4L sfZOoKNnpR158 KBfwJsN8BVCuodDrM7VvZ XDhwOhfApN6t3L4Ru1XmA aarUDiKE2wBoZqIEh7V6S kJpv7ITKjnLwa CI8sdECeWRpvXs1wmKxsj LkpRF2qUUHeoslch982Oy Azu8inAIQwmTDtTQmcECX 8Q76rf0C0NOQp DCYaUDG3zHS9pB0anJieg jogbGVmdDsgdmVydGljYW soLTtiC858BHJcaQcjWhV LWry7K2BqWwn6 YCPwjWejAE1jsDHhJTgrA d1jzLdezAvlIM8uDIHrzj jhw739QrCqb1kjVQGzjVC hQXxlVZE6S81k v7U5CJLsZEUaHUX0qEL6c H1tbLmllmbujBTakIuipv VmaViyJSsoBWztV231YCV mbIyoXw1CSat6 K4HzPoz9VLBmlCvwSE0xr YGgMTkxPe6dhIafiXdiGV 8uOECvxfrut048MoLph6o kIDEwcHQgVGlt PLK0P35qs5Z7WZZvDAHrD NN6nJT7eU0sjCxkdlbatA VmdDsgdmVydGljYWwtYWx rX032RNOvuMjc PlBheWVyOjwvdGQ+PC90c c47J9NcLgdgFyy5XJEnDD S2lTG6fC4wNNWiHMpuw6T 5hYH6H4CqzkXh ci1 (more content not included)... [facility] Consent Formson 12-16-2022 Consent Forms [id number] [facility] Inpatient Patient Summaryon 12-15-2022 [place] [address] Patient Discharge Instructions Name: BINTA GRAVES : 1980 Patient Address: [address] [place] [address] Primary Care Provider: Name: JEROD DELEON After you are discharged if you find you have any questions, please, call [phone] ext [phone] to speak to a nurse. Discharge Diagnosis: [...] Recovery [facility] 25/04 Crisis Hotline -Text 4HHRB [id number]. If you received any narcotics, sedation, or [...] business decisions or sign any legal documents [facility] would like to thank you for allowing [...] these instructions at home: Medicines ? Take tvsu-lct-sjzzwsm and prescription medicines only as told by [...] your h (more content not included)... [facility] Intra-Op Record Summary Primary Physician: Sarabjit Blanco MD Finalized Date/Time: 12/15/22 09:41:51 Pt. Name: BINTA GRAVESO.B./Sex: 1980 FEMALE Med Rec #: [id number] Physician: Sarabjit Blanco MD Financial #: [id number] Pt. Type: D Room/Bed: / Admit/Disch: 12/15/22 [...] Cox MA Role Performed Surgeon - Primary Party Supply Specialist Party Supply Specialist Time In 12/15/22 09:17:00 12/15/22 09:17:00 [...] Luke T RT (R) ARRT Role Performed Party Supply Specialist Scrub Personnel Wet Primer Powder Blender Time In 12/15/22 09:17:00 12/15/22 09:17:00 12/15/22 [...] Agents (Im.270) Povidone-Iodine Prep By Vida Figueroa MOTOR VEHICLE OPERATOR ROAD SUPERVISOR Prep Area (Im.270) Back Prep Area Details Bilateral Skin Prep Agent Dry Yes Without Pooling Hair Removal Syntegrity Hair Removal Methods No hair removal performed Outcome Met (O.100) Yes Last Modified By: Jacqueline Matos RN (more content not included)... [facility] MAGR Preoperative Recordon 0 12-15-2022 [facility] Preoperative Record [facility] Pre-Op Record Summary Primary Physician: Sarabjit Blanco MD Finalized Date/Time: 12/15/22 09:34:52 Pt. Name: JELENA BINTA KATIANA /Sex: 1980 FEMALE Med Rec #: [id number] Physician: Sarabjit Blanco MD Financial #: [id number] Pt. Type: D Room/Bed: / Admit/Disch: 12/15/22 [...] By: Sharon Epstein RN 12/15/22 09:34 Normal [facility] Operative Report - Surgeon/P reagan 12-15-2022 Operative [...] on: 12/15/2022 09:27 EDT] Sarabjit Blanco MD [facility] Patient Handouton 12-15-2022 Patient Handout Orthopedics [...] these instructions at home: Medicines ? Take iegp-xah-eegrsoi and prescription medicines only as told by [...] sugar if you have diabetes. ? Take veei-ipz-ofcausn and prescription medicines only as told by [...] provider. Document Revised: 06/11/2020 Document Reviewed: 08/27/2019 [employer] Patient Education ? 2021 [employer] [facility] Test Urine 1on 03- 15-2023 U Preg Negative [facility] Comment on above: Performed By: #### 3 [id number] ####[facility] (DEFAULT)[address] [place] [address] U Preg Internal Control Pass [facility] Comment on above: Performed By: #### 3 [id number] ####[facility] (DEFAULT)[address] [place] [address] Coding Summaryon 12-06-2022 Coding Summary HTMLBase 64 SqrngotoEFg2hLg+PGhlY WQ+YW9HNKZzF95hwAKgeN 1KT9cDTE2HAHPORQBYME1 RWI6vbFG4ELoxZ2ZjciUq HynavJRrBV64VJd5ANL5x CuhBInjaH2zqFStG6r7Aj PvTE50uP35QBkyEMBxJpQ 3LjZpbjsgbWFy A3azZjSmnZPuZwm+PHRhY mxlIHdpZHRoPScxMDAlJy IpnQjkWR5vYz7xCMPdODM vbGxhcHNlOiBj h9vqUZKwQSyxBH3vtKbwS 9PitLJ0DYRrl0p7Cu40aK I+IBKwCAW2nDzePBtia34 2PiLob3msSOY1 lXUcGFucEIV9F72rf4F1T MRrWVBvGPE8mAG1cT8gwZ qswwmoQ8OynYPjAbV7BQR 6eGArsL8zbKxr jrkvgS1qKyw+Z75UHS3XT DUMIP9YLkj1S4ViBphafX I+DD74AXVkKH28fCGhnMG ha1tfiNm5WrBg EEHoFEL3yCtuGFacg9KpE HZxW68dgTVjf8I3OYCcyG ouuZWxNcBzySG1sM8nTHg tfpvgq4mvmpso Vaats7toyr21yU81P96fK GsoQCExLME0HQHuUJTofO beva5mbY6hSy4+JYxct4i bc3rayGp6UvCf SYEociThyIpmZHG7l8NpD x46H3CrtJorc1HdMoj7mj 47yMEkf5A2iOJ9EZxzGKN luK4lUHmsYmK7 AAYmCjMueU32gFCcJKaqX j7bmLglcYhzBA6hKFHixv mhBVXbbZ9vBVZtxXUneWt hMG9zGUFctwbs c491QaQgBTH2GGUxhYFcZ 4UdhZ1rQpIfQPGrUWXpK4 NnhYDwSTidB244XVufQcB 8QEDdhcJcD2Jv ZQAesFdbQhH8z5X6Nj4Jr 7SsrtliVNT1HZhcVVEhAj A8NjMnKcI7L6KbTtk9OVG wbVwuDG3pR7Um YBMtyesfpgpkxHB5AFDtA CKixS41aTJdNWqkLk8aa6 E3m291RFOoZTFzkB70Oc8 udDogMTBwdCBU eC3zutwri1kouexzIhFkQ SQgBDb8SEq7VSDguTfhIo JlSTV2OyV7MPM5sNOzkP6 mqGlfnmktrO1y Oyc+O47vvU7jVXE3EXU2m cjpRMZoriDxWL56GG33P8 RyPjwvdGFibGU+PGRpdiB rnXobHO2fVaUn i8pbu7GbZFlkR4QcPOYlF UdnVzm5SHIuMDT4kZA0mU 3vKXJzBKheg8M2fAQ0Z4Q srsFhcm8pb6yh TQEcDJblH03udOXab6T5S WOcwTQ5ABGrsSxfEwUdrS 93Oyc+PAQyyIlyx9FwFcz ml5zkw3ibuRs7 HlPiQJGpgeKocCmxAZT0d 0ReOj41M73pBRhaLGCkXB OiFRAgGQSbhOdsnu3tfP7 wIi8+PGNvbCB3 iYZ5fU0sFBZmPhD9KPwuA 376WsEvaKEwXwigh1xqz3 dhmMh8IxJnMALoosZqjDk mSEW8p4MpRb32 E74oPCtuSDJxSMLhCUFaC ECljLubxc8biS7mDb5+PC 2oy5rdes01rT75hCG+PHR rNIO8zIwfRNeh JXRfcR9zOYcuBxD6GKFlO iIyuU60aWTqIQklXr4uiN qgwFzrKQ5jCFXdkquwc32 2SoSvn7rxCCQz jHVeKYoqCWM4H77ms4K7U KDiHNHhKQB9lNV7sV9zkU lnbjogbGVmdDsgdmVydGl oBFptUBmhH780 IHRvcDsnPlBhdGllbnQgT oSaDGk0C4BjKpo0JBAgeE pdPU0nuBTeCFmsLt4yvDs blTneRC7uZVCd rqogj190XoBqp2ynQQYmx LGdXJyqVZN8M54ho8L8OR AcLYVmDWI9tFA1mZ6xaHg nbjogbGVmdDsg dbPgpCvuADvpENxpX714V HRvcDsnPkJpcnRoIERhdG P5EO96SO60nUBrd7M7iJH 6R7UaOIUygvcp mtbafYY7HDEcGMNnmV46N n2voFbxIh9fGXNhQEL5PD LnjJDmT9BsmS9hCrPaLFW iAOJsT4AgqVMr YUuzG073IWgwGdO9HOXwu cPrJ2UkITOffSnfAjD9o4 H8Ty2WS8M7LW39JW69rGY fq1R5nBX5Z9Kj BAOsosbqudihoXM1IYCiL GUoiC43Mt3ocYdlLx4tDD QbDUT1DDKpkTWoT5MnmI7 yOiAjMDAwMDAw T6QncJQwGWlvT968CSoqG xE8NGTohhKkI2JhIOOihT khLrR5x7U7Sf7UXYc4IH5 8CZ63sPQzj5I3 aCX7L8XyGLEmkjijwrlxa OW5CVLnSFBjbH61Ie5uwE poTb6qDCDdNHM8GPWmmWM sJ5QtfI0jLdZy BDRaRSJbP5FgnAJmMNluS 745WZymRtI1VZDgnpNnA0 HwPXPleYfcCqU5i4P1Bz6 MCDMtQJ68FWR4 eUR6JC27YS53J7BjFzglh GFibGU+PHRhYmxlIHdpZH RoPScxMDAlJyBzdHlsZT0 cMc9nEAXpFXJz aJuesLMkZuJop2erWTCxL XotKL1zjPtfG1FwiVK6TJ Rpc6p0Au50U63tU1NxcVJ +LHYbpCR9pLK4 oT7eZoMcXaH3WEkuR975J oCwdRCpTmesn0rvr4yztG j5NpJ6FTEtmkTlwPxeYWD 1f0PgBv32J70t IHdpZHRoPSIxNSUiIHZhb Hjdws9rvY6gFp4+PGNvbC W6oUM0mF9oVfVcIjF1QDv fU755IrLkiSPl Vjubg2okj3tgdUn2JcOfK JYaxdEetIalIML2d0PlVq 71A1OamFrfb5FoUpj8wd4 1kCLho5F0qCI4 H1QoPYBifywcrRLbzPgaY C8sVUZkizwnJVEebD2wTS QpC8r0WaTfJdK9CNloJ1J xyiY1HKZlvQGb FGzyLSH7T39td0Q9QZEkA FWyMZJ8bSP2uG1dmShszx ogbGVmdDsgdmVydGljYWw wMJfkC369OMMb bLteIJJtiY2vNQDdxBQio QzvEF0bRLAijsiwWs7TTi RJTiwgRUxJWkFCRVRIIEF OTjwvdGQ+PHRk OVW5lWdeYBkqIJZjnV6jJ GZvD9v2PsVcFgB4YKazA6 XfZEIkbryaLy21pM6cPrL kToY5VAahO8Xg nnZ0OBWwfXNgAJarXME5Q 77uy7S0NMYfXFVsDFI1nV V7qD6ipHgpkomdfDYkqTq gdmVydGljYWwt FWvnN527PTGifZcpBeG7Q aLlQhP2AHP7V4XxUiy6YY FkeKrrBA2cvGBeFLpnNk0 rsDhqpZngAC3e UMGmissuJFGriV7qXFGyp DAqoUprRB2pSPEllcyyi7 43LrHyZNQ8FGTcjYTuT9E muR3yOgLhXNKm THWwR2MypSDqJFhxA789M YpgOuV6AOUstyMlI9GdIO LghVvaDeN1t7E8Pn73CbU ZZWFyczwvdGQ+ DEPgCUG5uQkuZVrkOHMvx V8aKCMsB0a7EpZyHaW7KU hdE5ZiALVzcbazBm61cQ7 sZeWgZuE0RPiz D6UsfcG1UVUbwDOkNXtgK EA8L50pb0A0MUBqMUGjWO N2aAP6kF7otRqaipgppYA mdDsgdmVydGlj JPihNRwzC633RGTpmObhG kZFTUFMRTwvdGQ+PHRkIH F0mLwaHIwqAEUyjU0oABY dV5c2DaEjVdP7 SZiaW4RrUBGyomikOh48v B0uKrOdMoY2ZDmgJ3Cple T3SKGneHBaYSxcNEY8B93 vj9C3NRMiTAYs TBE0iJM8mF8kkVosejlji GVmdDsgdmVydGljYWwtYW bdE841BNEpuTbpCb4NYR9 6QW09N5MiYbpo dGFibGU+PHRhYmxlIHdpZ HRoPScxMDAlJyBzdHlsZT 1hRd5gGCXbUJEbeNgiiLT yVhUoj1msFAKk OAqpDW3nxNnsE9XulCV1W GEnu0n9Sp06R48bS8QieY A+XUDppCB6sMB1nF8gKqV vUlU6SQppF593 VpXinBCfWrdjv1nsa8cky Tg5DeEzVTKfzrKfsHyaMR K4m5QrZc80H01pTBfdSTS oPSIyMCUiIHZh cVeaij7siF8yRt9+PGNvb QU3qJE3tM2fUrUcYvX0DE zjP015VgKwqVUpSsoxN67 wL7RveNQ+PHRy Kir7ODYxaQylGB7cbJFwL GhfNn7nQIX7LcDuDbHsKU kaZ2RdVRYjtoutdczbsXL 4UUDzJOWemZ96 Ev4zzFfoQo1rARRkQAT4R QSyqZUpH7ElgN8dXcRrRA VtRIZgV6LtcSDxLNefV95 8HYauMcK8EREg lsTlJ0AnQDAsdNopGeX7h 1Z4Ny5JdJvedPByKN2xDn HkZWj1E6MuGkd6GQDyqPt qFU6clBGzADvm Ko7tvYdaaWygOR8uCSCkl pnmg102FuJfm0tjMFNgqG NrIRpeUMX2A29pu4Y6XHQ bXTTkRJC1rJJ7 oC9sgDpmfbgraJWlpCsqu nKduQcdRUgxLCjmQ457JQ VadWvtVfTYGii3B4VyYzs 2KJFbrRtlRZ4w uRHdDBaiPq8kuEgfeBctS N6tZHPhlfmjn027OnHyz7 peYPDcjEFzGGskEHC9B55 mb9H7ZNJbUVDd TKS9pRB3uO1meTrahlljt GVmdDsgdmVydGljYWwtYW rvM899IIPgdCapRj9DLjl 1V9YmUdj3JNZu fOjpHS9ivGJfEGcyPz0ro JikeTzbOK6lILVxjyjid7 78SfXyp8nlTOBepCCiHPw ySJS5J48vp8J4 AVDsQRFnNDO0wDX2eK2ik GlnbjogbGVmdDsgdmVydG lnPAzjGJnvB592ZGDglVm nPlBheWVyOjwv dGQ+AW80xu06X8LjKrisB ax4YRHoTOD5kDA4aK3yOQ YbFYvjt0G0aLG0O1JgvdB ebr3tz0srNQBn ZTo (more content not included)... [facility] Progress Note - Provideron 0 12-06-2022 Progress Note - Provider [id number] [facility] Progress Note-Physicianon Progress Note-Physician DATE OF [...] to proceed. Sarabjit Blanco M.D. JOB #: [id number] ul [Electronically Signed on: 12/08/2022 10:52 EST] Sarabjit Blanco MD [Verified on: 12/08/2022 10:52 EST] Sarabjit Blanco MD [Transcribed on: 12/03/2022 11:25 EST] [facility] Coding Summaryon 11-22-2022 Coding Summary HTMLBase 64 AqjkktsyQFq4rFy+PGhlY WQ+ZM6JYOZmT92caOWybW 3HR8tZIY0HZJJDTLYGBP0 YJO2eoBI1MLruL4FcefVs CpolzUWrFS14ORp9XIF9e HpvTDeogG4izOWeH6k3Ye TsVO32oP52QIrxSBDpJzR 3LjZpbjsgbWFy L8inDwMflSNnAhe+PHRhY mxlIHdpZHRoPScxMDAlJy OtuXfrQN8eKq4xAPXxNVG vbGxhcHNlOiBj f5wpVPZkCLbzRT0svEkdQ 1DgtLY4JFMdq1g2Iy11fK I+OQJbCRQ6vJaaABoaa17 8XlVzs7igVAQ2 aJHuPUzpBKQ6O92tf9E9X LFoMFDeLLO2wNI4rV5arF rkrlpwT9ZxsMTyXiT3UCN 1uRFfaH5zuEoi nbjzoG9gYwj+K45GEK8CF UOGBH8EEis0K1SqGikehC I+CW98MAVlXI47mRMuaUM gj0nuhEh7MuDp RWRvVGU3kGxyGSutl1ViY DGzC04kvVEib2R4VKOsbN vgrOYfQyHfpXD9uG3dFRj sucxxm6xulxts Jbytf6vvnv98yC24Z93tW NggSWRfKVP4HLRvDGNnfT gqpk8peW7sFg2+KEqhm1e ic0ssvKr1HhSc ZEJvhoBflPsnYCW6x3TtZ r63Q7JgbUleu4MrZsq2ag 72nMOkf4Z8hJE0DNbnNBO eqC5sHAwsEdU3 GYUlWiMhbU87vLAiTQxjX f9iaJrsiRrlRQ3xLAZdze toBYXhmK0tQMDftWUzwUz rEM2lBSRcmvzg s751NzIrXWL1BAZctOAsR 2YzjY5aSaWdUEOoENMeK7 HotYSmRLlqS600SIrwGhF 5DSShcqJaK7Vs BAQnkQzhUaF0c5J6Sj7Jc 2TynilhGZS2HQhnPNRgEu LrIjUlHjY2W0ZuItq5TBH jbHdgAA3mR9Jq VLXcopbkzffrfCY1XPQnY YDyrP86zCIbRRutOn6fo5 K3t006RPTaPMItcQ88Nx7 udDogMTBwdCBU sK1mesvll9famtzhCbSvV FAyNMa1ZGl0RYMgxLqjFb TfWTW8IkR8YEL2bYAkuO4 akSvhhalstU1b Oyc+N76deO8hUTV2VIR1m kfaQHEhbkSfZU96IA65B1 RyPjwvdGFibGU+PGRpdiB tcUtqUY7rGiFf x2air8UnEAhmI7IiAYDpN ZavZyq0DCJfZDU4gPW1iI 2wJZMgYTysu4H3sUX7C5K lhnArjj0mw4up FWQsFStkF69kxMApm7Q6Y AZbuUC7KSJgjTesTuXfrO 93Oyc+SBZtoQlds5FkRvg ce5fnd4jbuVo5 KjBcGTEdzuKwuEmcDVX1u 7OjBl81G36kIAntFBXdEZ WzZFVjFRIytOegkh3apK9 wIi8+PGNvbCB3 oZM8xP6rQKPoYcD2ECtaX 094HtHdhFZzZncwk8wpo0 nnwIz0AbYlESKcryErzNr aZQL6g4FyIm76 W95xGGntPYUxHXTxZJZsE DTguZnozu5utU8fNo2+PC 7kf1qqxx78nW90eNH+PHR hKYC3sUnnUFmr BYRggF7eANfwStD7FXIoP iOxzJ42hRQlBLzoYa4kqF mmbHqpRU7gZTQadypch46 3SvQcd4orUZKl sCTdXQvrHHN9K22em2I3M OHgQVLjWOR7cQJ0fS9onZ lnbjogbGVmdDsgdmVydGl sAJiwZZvmL775 IHRvcDsnPlBhdGllbnQgT zXsNUw5G9FnUto4HWUugB czUD0qsEOgWDkiVf1lqCn fdYiuLN5cSDKl duzvb773MqWpa5myYVZub OMbKZmdLXB5F21sk6U2YV NqQDAdNFJ5bAL0bQ2slXn nbjogbGVmdDsg mkKnuIivUQbmAQfbC601F HRvcDsnPkJpcnRoIERhdG Z9PF37EX45bZMcq3A1lNL 7E8HkIULopjnf nskanYC7ZAJdHMRuwD03D o2vvNdlAq4zCWMjMXZ9YH QfbLYmY8ViuW3nKoYuKCG oEJSiB8VxeKJx QGziG963GDqqHeL0YPAah dUvS5TjSITtaDfxIlE8r9 E6Oq9AT8Y0ER29JX23cFW mb8W0wJF7Y4Mj RNZglmrvbmtyaKH9HNSrJ WUdvX17Fn5fwUfkRm2uQM XlZRA7BERlaNWuV7NdkJ7 yOiAjMDAwMDAw O6IjpZOdFDugS588JDzjO pT3KZMocmGiR9OqCWThvV qqWnF1b0M6Di9PFBq3JU3 7BP66tAVmx0N3 tAC2R9OmPVYfnazpahyfo ID0KFEgBJYdwP35Gv3hbT wkRy3yUDFmUWP9NNCumJP jQ1RjkD1kRoVe FKHlBNNwU5RsiYMpLAdeF 748BEguDlV0LKFwrbEiK4 OqSNNflJtgLcE8m6D3Of4 VGAIjZC22LXZ6 vIM8BR40XN69T2CtGgcmq GFibGU+PHRhYmxlIHdpZH RoPScxMDAlJyBzdHlsZT0 fVy4qPAKvQBCe dAumhHYpEjJvb8coUGDsO UgpCG6xkVraT0KrkEY1HT Rix6v9Vq76B92uC7SqlHG +KBRnuAX1mCD6 aN1zBvUnElJ0TMglB504X wJbuNUyHsdde7ptp6pbbO d0NbQ9UVCwvvPaeSyiTXW 5x4BpDn31K88m IHdpZHRoPSIxNSUiIHZhb Wjodu0aqN3fYz9+PGNvbC L8uIU8iT3kEqXvXpR8ASk bT839WsEadQLb Onlde4wkg1radSk9PtVhY ETtcqMotOqqDJN0q0QcIq 47M8TieFovy1ZwMmh6zq4 9cQAhd7K9pUN5 T3WwVFOazqrujDHasJrdZ U3yJHRfzkbpJGEwaU6vRY HqQ3q4TwEiHgE1CDklN9M jqbR4RNFqkHNd CAvaRGS5Z17tj9Q1NRTeG DKzNCY2aFV2bD1qlRffyt ogbGVmdDsgdmVydGljYWw bPNxgZ624KJKn fEwaNHFtdR2dLNKamNMrh SnwOM0fOJOschadQr0LPa RJTiwgRUxJWkFCRVRIIEF OTjwvdGQ+PHRk OCI1nUdqSYsgHUPfyX3dJ ASsJ4d7RzVvXtI1IDccE1 DeZDWprnqxXo72dX1oYiI eBxN1CGemJ5Du rdV9KHLpwUQnHLrxYMY5N 99zg8W3QGQmCONqTAZ2xS X5wM7zeKkbvuwbaNTseMr gdmVydGljYWwt MQbxG795OMZxqYjiHbU1V qUsLlW1GVC0C0FnOlf5VN JyqUuiNM9pfVIzMDroRq5 kjMhsdOymMM3k WENlbmkbATVlgY2hHXTdx EDbmZpdAU6aXTYnpqwmn1 72ZmPgRIJ8AYStaNQoJ4O rxZ5hQlVyUCFr RZGhC6KyoKXnLOokB070V KlsDjT8AYBntbUsM0IgVL WwfUxaUkD1e8D7Sb73OwN ZZWFyczwvdGQ+ XGStVDB6xHgxXNqgOTQwj C7zSOLtP5p9AkVxSoU3EM czO0EgTNBdmpgtMd29xA1 oLxHuMyR7FSxm Y1EcfnZ8MNYobOVoTEvsM UB5P10el9I5NLMdXZJwFZ K6jAL2tI2cxHqhydbhtQW mdDsgdmVydGlj SLneZKjpV781ZBAbfImdA kZFTUFMRTwvdGQ+PHRkIH V6hWlcAQsaHTQlnU2cZZR hH5e1SaHrOjO8 ZNemG6WgTMIjtrxlHk41t T7xDdVpBhM4GQcfY0Uomj Y2KLFckJLzPRglKIO2K30 vd8H3VLDiDBCi IFP0hMW9iE9wnQydjvwva GVmdDsgdmVydGljYWwtYW orX563ROXahMtbMf9IPO5 1UZ12M5KnFufw dGFibGU+PHRhYmxlIHdpZ HRoPScxMDAlJyBzdHlsZT 6mNt7tIRBzQPAcaSyepJS jJvLbt8fwNUGe SLuxKO5cuLesR7OamBA8S VGkv1f5Rr21C67qP5AbbU A+TBZkoHZ3uSV8uG6kFmB pGzU9EKmtX064 IqYfuEFtGavdf4ypi4xao Xq3XrUhVPAvsxBbiOypZS S8j4LaOo77P02wOQqpQNO oPSIyMCUiIHZh pXmjtr8naI0eAv8+PGNvb GW0hPV5bY0vQhChEoN8CX fsH758HxUxbBVcNzkpO86 bF9RxyYF+PHRy Maf6PXVqcTqfYL4nyPHxW LgoNu3eTDI0DjIkFaDlNX taN2ArADRohjnkwsowuIO 0GNItXJHjsS08 Xk6imOlrIw3kRXBoXVM2Y UFekTVwN3TmpQ2cDxHzML RaANNpD7OngAShIXyoV89 2IYkzUfY0QIZj wbZzG8NrMQJvoHwcJwC6b 7R2Fq7NdQdwpNQaZB4qNn BcKFm4U8YlGdm0BTSbuCg jCO2fpACgXDaq Xu6ydHwpyGfiDE0aQIVor yjzi865YbAzs3ezOBNdwL TqACxwLQU9K75dn3O6KPY gDLChCXP0ySX3 nN3umEkiavidrNRajStip vYwxIvrUNjhTEcvN235PP IanKxwEcPMKsj6K1AeAaz 9RSGkgVlvPZ6r yEXaISrlRn3cbHvrmTdvO S1xPKOceuean831WiMgc4 xlKPJqfVLxUMhkSFC0D37 ls5K5YDUzXDHp DQT6lWW4yV5poQfymztvt GVmdDsgdmVydGljYWwtYW enF462UCEwxLcvXm0VJxr 7G7HyPts9WURz eOjfFW4vcXUkIKcePq1ku PpqrPnyRW5oTCMyuxkfz0 52FkGtl5dtHUQmmHYbKAd qDJA4C68ei0I5 AWKnGURgGBH1rXW5pZ1ew GlnbjogbGVmdDsgdmVydG uyLLjtWGmhZ706OQTntFn nPlBheWVyOjwv dGQ+SB36mm30Q1LqLvgzH ew7QERfRHY3fEN0bX2pXC RkCAhew8G7hBN8E8MgjsM cxp4aj6vkQMDw ZTo (more content not included)... [facility] XR Spine Lumbosacral Complet e w/ [...] Navarro DO 11/21/22 10:49 a Technologist: GEOFF [facility] MRI LUMBAR SPINE W WO CONTRA STon 05-20-2020 MRI LUMBAR SPINE W WO CONTRAST [facility] Department of Radiology [address] [place] [id number] Patient Name: BINTA GRAVES : 1980 Sex: F Age: Race: White Pt. Location: Patient Status: D Ordered Date: 05/02/2020 2:00:00 PM Completed Date: 05/20/2020 02:21 PM Requesting Provider: ZAYDA FRAZIER Attending Provider: ZAYDA FRAZIER Report Copy To: Signs & Symptoms: M54.16 Radiculopathy, lumbar region I10 History: [place] Comments: , Recent lumbar surgery, postop numbness left perineum and left leg, evaluate for nerve compression. , Recent lumbar surgery, postop numbness left perineum and left leg, evaluate for nerve compression. 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 Transcribed by: [email or web address], User Resident: ROSITA NIX Electronically Signed by: YAMILETH BARRAGAN @ 05/27/2020 12:36 PM I personally read this/these film(s) with this resident Normal [facility] Comment on above: Order Comment: The A ptima SARS-CoV-2 assay is a nucleic acid amplification test intended for the qualitative detection of RNA from SARS-CoV-2 isolated and purified from nasopharyngeal (RETINA SUBSPECIALIST), nasal and oropharyngeal (OP) swab specimens from patients with signs and symptoms of infection who are suspected of COVID-19. Results are for the identification of SARS-CoV-2 RNA. The SARS-CoV-2 RNA is generally detectable in nasopharyngeal and oropharyngeal swabs during the acute phase of infection. The Aptima SARS-CoV-2 Assay on the [employer] system is intended for use by laboratory personnel specifically instructed and trained in the operation of the [employer] system. The Aptima SARS-CoV-2 assay is [...] Reporton 0 Operative Report MR#: [id number] I [facility] Pt. Name: Binta Graves Room #: 5AB [id number] Discharge 03/09/2020 Date: Birthdate: 1980 OPERATIVE REPORT [...] Traylor MD Date Trans: 03/21/2020 04:34 P/chrissy [id number] cc: Jerod Deleon M.D. [address] [facility] [address] [facility] *MRSA/MSSA DNA NASALon 03-07 *MRSA/MSSA DNA NASAL Clinical Report: (D ) Specimen: NASAL SWAB Collected: 03/07/2020 10:30 Status: Final Last Updated: 03/07/2020 16:47 MSSA DNA (Final) Negative MRSA DNA (Final) Negative Normal [facility] Comment on above: Performed By: #### 3 1595 #### [facility] [address] [place] [address], [facility] BASIC METABOLIC PANELon Calcium [Mass/Vol] 8.9 mg/dL Normal 8.6-10.3 [facility] Comment on above: Order Comment: No: D o not add to previous draw Performed By: #### 4 1000, 31083, 32499 #### [facility] [address] [place] [address], [facility] Chloride [Moles/Vol] 105 mmol/L Normal 98-107 [facility] Comment on above: Order Comment: No: D o not add to previous draw Performed By: #### 4 1000, 35292, 12432 #### [facility] [address] [address], [place] CO2 [Moles/Vol] 24 mmol/L Normal 21-31 [facility] Comment on above: Order Comment: No: D o not add to previous draw Performed By: #### 4 1000, 11236, 83095 #### [facility] [address] [facility] [place] [place] [address], [facility] Creatinine [Mass/Vol] 0.75 mg/dL Normal 0.60-1.20 [facility] Comment on above: Order Comment: No: D o not add to previous draw Performed By: #### 4 1000, 68987, 91085 #### [facility] [address] [facility] [place] [place] [address], [place] GFR/1.73 sq M predicted among blacks MDRD (S/P/Bld) [Vol rate/Area] mL/min/{1.73_m2} Normal >60 [facility] Comment on above: Order Comment: No: D o not add to previous draw Performed By: #### 4 1000, , 28968 #### [facility] [address] [place] [address], [place] GFR/1.73 sq M predicted among non-blacks MDRD (S/P/Bld) [Vol rate/Area] mL/min/{1.73_m2} Normal >60 [facility] Comment on above: Order Comment: No: D o not add to previous draw Performed By: #### 4 1000, , 30506 #### [facility] [address] [place] [address], [place] Glucose [Mass/Vol] 92 mg/dL Normal 70-100 [facility] Comment on above: Order Comment: No: D o not add to previous draw Performed By: #### 4 1000, , 00626 #### [facility] [address] [place] [address], [place] Potassium [Moles/Vol] 3.8 mmol/L Normal 3.5-5.1 [facility] Comment on above: Order Comment: No: D o not add to previous draw Performed By: #### 4 1000, , 44471 #### [facility] [address] [place] [address], [place] Sodium [Moles/Vol] 136 mmol/L Normal 136-145 [facility] Comment on above: Order Comment: No: D o not add to previous draw Performed By: #### 4 1000, , 83989 #### [facility] [address] [place] [address], [place] Urea nitrogen [Mass/Vol] 20 mg/dL Normal 7-25 [facility] Comment on above: Order Comment: No: D o not add to previous draw Performed By: #### 4 1000, , 07658 #### [facility] [address] [place] [address], [place] CBC COMPLETE BLOOD COUNTon 03-07-2020 Erythrocyte distribution width (RBC) [Ratio] 13.4 % Normal 11.5-15.0 [facility] Comment on above: Order Comment: No: D o not add to previous draw Performed By: #### 5 0608 #### [facility] [address] [place] [address], [facility] Hematocrit (Bld) [Volume fraction] 44.1 % Normal 36.0-45.0 [facility] Comment on above: Order Comment: No: D o not add to previous draw Performed By: #### 5 0608 #### [facility] [address] [place] [address], [facility] Hemoglobin (Bld) [Mass/Vol] 14.4 g/dL Normal 12.0-15.0 [facility] Comment on above: Order Comment: No: D o not add to previous draw Performed By: #### 5 0608 #### [facility] [address] [place] [address], [facility] MCH (RBC) [Entitic mass] 27.0 pg Normal 27.0-33.0 [facility] Comment on above: Order Comment: No: D o not add to previous draw Performed By: #### 5 0608 #### [facility] [address] [place] [address], [facility] MCHC (RBC) [Mass/Vol] 32.7 g/dL Normal 32.0-35.0 [facility] Comment on above: Order Comment: No: D o not add to previous draw Performed By: #### 5 0608 #### [facility] [address] [place] [id number], [facility] MCV (RBC) [Entitic vol] 82.7 fL Normal 82.0-98.0 [facility] Comment on above: Order Comment: No: D o not add to previous draw Performed By: #### 5 0608 #### [facility] [address] Nucleated RBC/100 WBC (Bld) [Ratio] 0 % Normal 0-0 [facility] Comment on above: Order Comment: No: D o not add to previous draw Performed By: #### 5 0608 #### [facility] [address] [place] [address], [facility] PLAT CNT 194 10*3/uL Normal 150-400 [facility] Comment on above: Order Comment: No: D o not add to previous draw Performed By: #### 5 0608 #### [facility] [address] [place] [address], [facility] RBC (Bld) [#/Vol] 5.33 10*6/uL High 3.80-5.00 [facility] Comment on above: Order Comment: No: D o not add to previous draw Performed By: #### 5 0608 #### [address] WBC (Bld) [#/Vol] 8.71 10*3/uL Normal 4.00-10.60 [facility] Comment on above: Order Comment: No: D o not add to previous draw Performed By: #### 5 0608 #### [address] LUMBAR SPINE 2 OR 3 [facility] LUMBAR SPINE 2 OR 3 [facility] Department of Radiology [address] [place] [phone] Patient Name: BINTA GRAVES : 1980 Sex: F Age: Race: White Pt. Location: [id number] Patient Status: I Ordered Date: 03/07/2020 1:00:00 [...] images. Electronically signed: Moris [place]. Transcribed by: [email or web address], User Resident: Electronically Signed by: MORIS VEGAS @ 03/08/2020 08:49 AM Normal [facility] Comment on above: Order Comment: The A ptima SARS-CoV-2 assay is a nucleic acid amplification test intended for the qualitative detection of RNA from SARS-CoV-2 isolated and purified from nasopharyngeal (RETINA SUBSPECIALIST), nasal and oropharyngeal (OP) swab specimens from patients with signs and symptoms of infection who are suspected of COVID-19. Results are for the identification of SARS-CoV-2 RNA. The SARS-CoV-2 RNA is generally detectable in nasopharyngeal and oropharyngeal swabs during the acute phase of infection. The Aptima SARS-CoV-2 Assay on the [employer] Fusion system is intended for use by laboratory personnel specifically instructed and trained in the operation of the [employer] system. The Aptima SARS-CoV-2 assay is [...] Magnesium [Mass/Vol] 1.9 mg/dL Normal 1.9-2.7 [facility] Comment on above: Order Comment: No: D o not add to previous draw Performed By: #### 4 1000, [id number], [id number] #### [address] OUTSIDE CONSULT NEUROon OUTSIDE CONSULT NEURO [facility] Department of Radiology [address] [place] [address] Patient Name: BINTA GRAVES : 1980 Sex: F Age: Race: White Pt. Location: [address] [place] [address] Patient Status: I Ordered Date: 03/06/2020 7:05:00 PM Completed Date: 03/07/2020 11:41 AM Requesting Provider: DAKOTA TRAYLOR Attending Provider: ARNEL GARSIA Report Copy To: Signs & Symptoms: NEED CONSULT History: Lumbosacral transitional anatomy CT of the L-Spine without contrast done on 03/04/2020 At the [facility] Requesting Dr. Dakota Traylor Comments: Exam: OUTSIDE CONSULT NEURO OUTSIDE CONSULT NEURO 03/07/2020 11:41 AM OUTSIDE STUDY: Lumbar spine CT scan TECHNIQUE: Outside CT images of the lumbosacral spine obtained from the [facility] dated March 04, 2020. Image review [...] interpretation. Electronically signed: Ольга Johnson. Transcribed by: [email or web address], User Resident: Electronically Signed by: ОЛЬГА JOHNSON @ 03/07/2020 01:03 PM Normal [facility] PHOSPHORUS BLOODon 0 Phosphate [Mass/Vol] 3.5 mg/dL Normal 2.5-5.0 [facility] Comment on above: Order Comment: No: D o not add to previous draw Performed By: #### 4 1000, [id number], [id number] #### [facility] [address] [place] [address], [facility] POC GLUCOSE LABon 03-07-2020 Glucose [Mass/Vol] 97 mg/dL Normal 70-100 [facility] Comment on above: Performed By: #### 8 [id number] #### [facility] [address] TYPE AND SCREENon 03-07-2020 ABO INTERPRETATION O Normal The [facility] Comment on above: Performed By: #### 6 2586 #### [facility] [address] [facility]. [address] RH INTERPRETATION Negative Normal The [facility] Comment on above: Performed By: #### 6 2586 #### [facility] [address] [facility]. [address] *SARS-CoV-2 COVID-19on 03-06 [id number] Not Detected Normal Not Detected [facility] Comment on above: Order Comment: The A ptima SARS-CoV-2 assay is a nucleic acid amplification test intended for the qualitative detection of RNA from SARS-CoV-2 isolated and purified from nasopharyngeal (RETINA SUBSPECIALIST), nasal and oropharyngeal (OP) swab specimens from patients with signs and symptoms of infection who are suspected of COVID-19. Results are for the identification of SARS-CoV-2 RNA. The SARS-CoV-2 RNA is generally detectable in nasopharyngeal and oropharyngeal swabs during the acute phase of infection. The Aptima SARS-CoV-2 Assay on the [employer] Fusion system is intended for use by laboratory personnel specifically instructed and trained in the operation of the [employer] Fusion system. The Aptima SARS-CoV-2 assay is [...] information. Performed By: #### 3 [id number] #### [address] [place], [place] [id number] [place] [address] MRI LUMBAR SPINE WO CONTRAST on 03-06-2020 MRI LUMBAR SPINE WO CONTRAST [facility] Department of Radiology [address] [place] [id number] Patient Name: BINTA GRAVES : 1980 Sex: F Age: Race: NA Pt. Location: [id number] Patient Status: I Ordered Date: 03/06/2020 6:40:00 [...] narrowing Electronically signed: Yamileth Barragan. Transcribed by: [email or web address], User Resident: Electronically Signed by: YAMILETH BARRAGAN @ 03/06/2020 07:54 PM Normal [facility] Comment on above: Order Comment: Spina l Stenosis, patient with left s1 radicular type pain - has transitional lumbo-sacral anatomy based on CT scan Encounters Encounter Date Encounter Type Care Provider Facility Start: 07-09-2024 End: 07-09-2024 ambulatory Karina Rodriguez MD [facility] Start: 06-25-2024 End: 06-25-2024 ambulatory Karina Rodriguez MD [facility] Start: 06-18-2024 End: 06-18-2024 ambulatory Karina Rodriguez MD [facility]: [facility] Start: 05-29-2024 End: 05-29-2024 ambulatory JEROD DELEON Not Available Start: 02-23-2024 End: 02-23-2024 ambulatory JEROD DELEON Not Available Start: 02-20-2024 End: 02-20-2024 ambulatory Karina Rodriguez MD Facility: [facility] Start: 02-13-2024 End: 02-13-2024 ambulatory Karina Rodriguez MD [facility] Start: 02-09-2024 End: 02-10-2024 ambulatory [facility] Start: 02-01-2024 End: 02-02-2024 ambulatory [facility] Start: 01-20-2024 End: 01-20-2024 ambulatory JEROD DELEON Not Available Start: 12-28-2023 End: 12-29-2023 ambulatory [facility] Start: 12-16-2023 End: 12-16-2023 ambulatory JEROD DELEON Not Available Start: 02-25-2023 End: 02-26-[address] JEROD DELEON Facility: Start: 12-29-2022 End: 12-29-2022 ambulatory [facility] Facility:[facility] Start: 12-22-2022 End: 12-23-2022 ambulatory [facility] Facility:[facility] Start: 12-15-2022 End: 12-15-2022 ambulatory [facility] Facility:[facility] Start: 12-01-2022 End: 12-02-2022 ambulatory [facility] Facility:[facility] Start: 11-19-2022 End: 11-20-2022 ambulatory [facility] Facility:[facility] Start: 12-31-2021 Transcribe [facility] Start: 05-20-2020 End: 05-21-2020 Patient encounter procedure Zayda Frazier Facility:[facility] Start: 03-06-2020 End: 03-09-2020 Evaluation and management of inpatient ARNEL GAVINO Facility:[facility] Procedures Date Procedure Procedure Detail Performing Clinician Start: 03-07-2020 EXCISION OF LUMBOSAC RAL DISC, OPEN APPROACH DAKOTA TRAYLOR Start: 03-07-2020 RELEASE SACRAL NERVE , OPEN APPROACH DAKOTA TRAYLOR Start: 03-07-2020 Antibody screen ARNEL [facility] Comment on above: Performed By: #### 6 2586 #### [address] Plan of Treatment Date Care Activity Detail Author Start: 05-03-2021 Influenza vaccination Influenza Vacc ine (#1) [facility] Start: 2001 Screening for malign ant neoplasm of cervix Pap Smear [facility] Start: 1998 Hepatitis C screening Hepatitis C An tibody [facility] Start: 1998 Tetanus + diphtheria + acellular pertussis vaccine (product) [facility] Start: 1995 HIV screening HIV Test [facility] Start: 1985 COVID-19 Vaccine (1) COVID-19 Vaccin e (1) [facility] Payers Date Payer Category Payer Unknown [id number] 2022 Unknown [id number] 2021 Unknown [id number] 1980 Unknown [id number] 2.16.8 40.1.949342.3.579.2.647 1980 Unknown [id number] 2.16.8 40.1.016826.3.579.2.647 1980 Unknown [id number] 2.16.8 40.1.374002.3.579.2.8 1980 Unknown [id number] 2.16.8 40.1.770766.3.579.2.8 1980 Unknown [id number] 2.16.8 40.1.292917.3.579.2.8 1980 Unknown [id number] 2.16.8 40.1.968566.3.579.2.8 1980 Unknown [id number] 2.16.8 40.1.408984.3.579.2.8 1980 Unknown [id number] 2.16.84 0.1.272103.3.579.2.9 1980 Unknown [id number] 2.16.84 0.1.930926.3.579.2.9 1980 Unknown [id number] 2.16.84 0.1.779275.3.579.2.1258 1980 Unknown [id number] 2.16.84 0.1.494715.3.579.2.1259 1980 Unknown [id number] 2.16. 840.1.673199.3.579.2.196 1980 Unknown [id number] 2.16. 840.1.683332.3.579.2.196 1980 Unknown [id number] 2.16. 840.1.747851.3.579.2.196 1980 Unknown [id number] 2.16. 840.1.772975.3.579.2.196 1980 Unknown [id number] 2.16. 840.1.055708.3.579.2.196 1959 Self-pay [id number] Unknown [id number] 2.16.84 0.1.036787.3.579.2.593 Social History Date Type Detail Facility Tobacco smoking stat [facility]: 1980 Sex Assigned At Not on file [facility] Medication management note 12-30-2022 Note Date & Type Note Facility 12-30-2022 Note [id number] [facility] Clinical Note 12-29-2022 Note Date & Type Note Facility 12-29-2022 Note [facility] Clinical Discharge Summary PERSON INFORMATION Name BINTA GRAVES Age 42 Years 1980 Sex FEMALE Language Prydeinig PCP JEROD DELEON Marital Status Med Service Pain Management Surgery Acct# Arrival 12/29/2022 07:38:41 Visit Reason LOW BACK PAIN Acuity LOS 012 22:22 Address: [address] [place] [address] Comment: PROVIDER INFORMATION VITALS INFORMATION Vital Sign [...] spine; Lumbar spondylosis Comment: PHYS DOC NOTES [facility] History and physical note 12-28-2022 Note Date & Type Note Facility 12-28-2022 Note [id number] FF The patient has been examined and the medical record reviewed. The indications for surgery and exam are unchanged. [Electronically Signed on: 12/29/2022 08:15 EDT] Sarabjit Blanco MD [Verified on: 12/29/2022 08:15 EDT] Sarabjit Blanco MD [Transcribed on: 12/28/2022 14:33 EDT] [facility] Medication management note 12-16-2022 Note Date & Type Note Facility 12-16-2022 Note [id number] FF [facility] Clinical Note 12-15-2022 Note Date & Type Note Facility 12-15-2022 Note [facility] Clinical Discharge Summary PERSON INFORMATION Name BINTA GRAVES Age 42 Years 1980 Sex FEMALE Language Prydeinig PCP JEROD DELEON Marital Status Med Service Pain Management Surgery Acct# Arrival 12/15/2022 07:50:00 Visit Reason LOW BACK PAIN Acuity LOS 012 00:14 Address: [address] [place] [address] [place] [address] Comment: PROVIDER INFORMATION VITALS INFORMATION Vital Sign [...] spine; Lumbar spondylosis Comment: PHYS DOC NOTES [facility] History and physical note 12-15-2022 Note Date [...] Anterolisthesis of lumbosacral spine / SNOMED CT 403614131 / Confirmed Lumbar spondylosis / SNOMED CT 677482024 / Confirmed, Active Problems (2) Anterolisthesis of lumbosacral spine Lumbar spondylosis Histories Family History: No family history items have been selected or recorded. Procedure history: Facet joint nerve block ([id number]) on 12/15/2022 at 42 Years. Comments: 12/15/2022 [...] Gastrointestinal: Soft, Non-tender, Non-distended. Integumentary: Warm, Dry, [place]. Neurologic: Alert, Oriented. Psychiatric: Cooperative. Review / Management Results review: Lab results: 12/15/2022 8:04 EDT U Preg Negative . Impression and Plan Lumbar Spondylosis , Procedure explained to patient along with risks of possible complications and patient wishes to proceed. [Electronically Signed on: 12/15/2022 09:04 EDT] Sarabjit Blanco MD [Verified on: 12/15/2022 09:04 EDT] Sarabjit Blanco MD [facility] History and physical note 12-14-2022 Note Date & Type Note Facility 12-14-2022 Note [id number] IFF The patient has been examined and the medical record reviewed. The indications for surgery and exam are unchanged. 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 WEIGHT MANAGEMENT SERVICE REQUEST LVL 3 EST PT, LOW MDM, 20-29 MINUTES Jerod Deleon MD [address] [place] [address] Weight Management [email or web address] [address] Referral ID Status Reason Start Date Expiration Date V isits Requested Visits Authorized [id number] Authorized 12/31/2021 12/31/2022 10 10 Additional Source Comments INFORMATION SOURCE (unrecogn ized section and content) DATE CREATED AUTHOR 05/28/2020 [facility] DATE CREATED AUTHOR AUTHOR'S ORGANIZ ATION 03/11/2023 [facility] DATE CREATED AUTHOR AUTHOR'S ORGANIZ ATION 03/11/2023 [facility] DATE CREATED AUTHOR AUTHOR'S ORGANIZ ATION 02/11/2024 [facility] DATE CREATED AUTHOR AUTHOR'S ORGANIZ ATION 05/31/2024 [facility] DATE CREATED AUTHOR AUTHOR'S ORGANIZ ATION 07/18/2024 [facility] FOR RECORDS PERTAINING TO PATIENTS WHO ARE [...] BE BASED ON THE PRIMARY CLINICAL RECORDS. [employer] provides no warranty or guarantee of the accuracy or completeness of information in this document.
== END 2024-07-24 11:32 | disposition home or self-care (01) ==
LOC: PM 11:31
PROVIDERS: PCP Family Medicine; Visit Provider Anesthesiology Pain Medicine
DX: M79.18 Myalgia, other site (principal); M54.16 Radiculopathy, lumbar region
CPT/HCPCS: 20552; J0665; J3301